=== PATIENT | male | born 1940 | race Caucasian/White ===

== ENCOUNTER 2018-02-06 11:51 | Inpatient (IN) | payer MEDICARE, BC, OTHER ==
[2018-02-06] VITALS (8 sets, daily range): BP systolic 105–198; BP diastolic 70–100; PULSE 58–66; RESP 16–20; TEMP 97.2–98.3; O2SAT 94–98
[~2018-02-06] VITALS: Ht 193 cm; Wt 97.0 kg
[~2018-02-06 11:51] MED LIST: ALLO100 PO; AMLO10 PO; ATOR20TA42 PO; DOCU1CAP39 PO; ECASA PO; FISH1000 PO; LISI10 PO; LOMO PO; NITR0.4S SL; PANT20 PO; SUCR1S PO; TAB-TAB PO; TOPR50TA PO; ZOFR4TAB3 SL; [UNRECOGNIZED DRUG - CODE] PO
[2018-02-06] MEDS ORDERED: SODIUM CHLORID 0.9% 500 ML INJ 500 ML IV ONE (12:30)
--- NOTE | 2018-02-06 12:37 | PD ---
HPI Chief Complaint: General Weakness Time Seen by Provider: 12:15 Travel History International Travel<30 days: No Contact w/Intl Traveler<30days: No Traveled to known affect area: No History of Present Illness HPI 77-year-old male with a history of CHF, HTN, presents emergency department for evaluation dizziness and multiple falls that started 2 weeks ago. Patient says he called his account development executive, Dr. Cheek, and he advised to come to the emergency department for evaluation. Patient says that he gets up in the morning he walks to the bathroom, turns around and feels dizzy often falling injury resulting in head trauma. Says he feels unsteady and like the room is spinning despite him holding onto objects in the room. Says that the dizziness lasts for 10 minutes before resolving spontaneously. He says this also occurs from sitting to a standing position. he denies loss of consciousness, blurred vision, headache. Since last night he had the same incident occur where he fell hitting his head and staying on the floor for approximately 20 minutes. Patient was able to move and walk normally after the incident. He denies fever , chills, chest pain, abdominal pain, nausea, vomiting or diarrhea. Says he normally has shortness of breath secondary to his congestive heart failure. His last echocardiogram and stress test was at the end of 2017. He does not know the results. In addition, patient takes hydrocodone daily for hip and back pain. This is prescribed by his primary care physician, Dr. Duff. [facility] Past Medical History Arthritis: Yes Asthma: No Autoimmune Disease: No Anxiety: No Depression: Yes (due to illness ) Heart Rhythm Problems: No Cancer: Yes (renal) Cardiovascular Problems: Yes High Cholesterol: Yes Chemotherapy: No Chest Pain: No Congestive Heart Failure: No COPD: No Cerebrovascular Accident: No Diabetes: No Diminished Hearing: Yes Endocrine: No GERD: No Hiatal Hernia: No Hypertension: Yes Immune Disorder: No Kidney Stones: No Musculoskeletal: Yes Neurologic: No Psychiatric: No Respiratory: No Migraines: Yes Radiation Therapy: No Renal Failure: Yes (right kidney removed) Seizures: No Sickle Cell Disease: No Sleep Apnea: Yes (years ago) Thyroid Disease: No Ulcer: No Influenza Vaccination: Yes Past Surgical History Abdominal Surgery: Yes (gallbladder ) AICD: No Arteriovenous Shunt: No Cardiac Surgery: Yes (stent ) Cholecystectomy: Yes Ear Surgery: No Endocrine Surgery: No Eye Surgery: Yes (bilateral cataracts) Genitourinary Surgery: Yes (prostate) Insulin Pump: No Joint Replacement: No Neurologic Surgery: No Oral Surgery: Yes (teeth removed) Pacemaker: No Prostatectomy: Yes Thoracic Surgery: No Other Surgery: Yes (R kidney removed) Social History Alcohol Use: No Tobacco Use: No Substance Use: No Allergies-Medications (Allergen,Severity, Reaction): Coded Allergies: colchicine (Verified Allergy, Mild, 02/06/18) labetalol (Verified Allergy, Mild, 02/06/18) Reported Meds & Prescriptions Reported Meds & Active Scripts Active Reported Tofranil (Imipramine HCl) 50 Mg Tab 50 Mg PO HS Vesicare (Solifenacin) 5 Mg Tab 5 Mg PO DAILY Hydrocodone-Acetaminophen 7.5 Mg-325 Mg Tab 1 Tab PO Q8HR PRN Lisinopril 10 Mg Tab 10 Mg PO BID Allopurinol 100 Mg Tab 100 Mg PO BID Review of Systems Except as stated in HPI: all other systems reviewed are Neg Physical Exam Narrative GENERAL: Well-developed, well-nourished in no apparent distress SKIN: Focused skin assessment warm/dry. HEAD: Atraumatic. Normocephalic. EYES: Pupils equal and round. No scleral icterus. No injection or drainage. PERRLA ENT: No nasal bleeding or discharge. Mucous membranes pink and moist. NECK: Trachea midline. No JVD. No lymphadenopathy CARDIOVASCULAR: Regular rate and rhythm. No murmur appreciated. RESPIRATORY: No accessory muscle use. Clear to auscultation. Breath sounds equal bilaterally. GASTROINTESTINAL: Abdomen soft, non-tender, nondistended. Hepatic and splenic margins not palpable. No CVA tenderness MUSCULOSKELETAL: No obvious deformities. No clubbing. No cyanosis. No edema. NEUROLOGICAL: Awake and alert. Cranial nerves II through XII intact. Motor and sensory grossly within normal limits. Five out of 5 muscle strength in all muscle groups. Normal speech. No pronator drift. PSYCHIATRIC: Appropriate mood and affect; insight and judgment normal. Data Data Last Documented VS Vital Signs Date Time Temp Pulse Resp B/P (MAP) Pulse Ox O2 Delivery O2 Flow Rate FiO2 02/06/18 12:46 61 16 166/89 (114) 88 20 61 16 120/72 (88) 02/06/18 12:10 97.8 97 Room Air Orders Orders Electrocardiogram (02/06/18 12:27) Complete Blood Count With Diff (02/06/18 12:27) Comprehensive Metabolic Panel (02/06/18 12:27) Act Partial Throm Time (Ptt) (02/06/18 12:27) Prothrombin Time / Inr (Pt) (02/06/18 12:27) Urinalysis - C+S If Indicated (02/06/18 12:27) Ct Brain W/O Iv Contrast(Rout) (02/06/18 12:27) Ecg Monitoring (02/06/18 12:27) Iv Access Insert/Monitor (02/06/18 12:27) Orthostatic Vital Signs (02/06/18 12:27) Sodium Chlorid 0.9% 500 Ml Inj (Ns 500 M (02/06/18 12:30) Chest, Single Ap (02/06/18 ) Admit Order (Ed Use Only) (02/06/18 16:33) Labs Laboratory Tests Test 02/06/18 12:40 02/06/18 13:45 White Blood Count 8.9 TH/MM3 Red Blood Count 4.32 MIL/MM3 Hemoglobin 13.8 GM/DL Hematocrit 41.2 % Mean Corpuscular Volume 95.3 FL Mean Corpuscular Hemoglobin 31.9 PG Mean Corpuscular Hemoglobin Concent 33.5 % Red Cell Distribution Width 13.5 % Platelet Count 158 TH/MM3 Mean Platelet Volume 7.4 FL Neutrophils (%) (Auto) 66.2 % Lymphocytes (%) (Auto) 24.8 % Monocytes (%) (Auto) 8.7 % Eosinophils (%) (Auto) 0.0 % Basophils (%) (Auto) 0.3 % Neutrophils # (Auto) 5.9 TH/MM3 Lymphocytes # (Auto) 2.2 TH/MM3 Monocytes # (Auto) 0.8 TH/MM3 Eosinophils # (Auto) 0.0 TH/MM3 Basophils # (Auto) 0.0 TH/MM3 CBC Comment DIFF FINAL Differential Comment Prothrombin Time 10.6 SEC Prothromb Time International Ratio 1.0 RATIO Activated Partial Thromboplast Time 23.6 SEC Blood Urea Nitrogen 32 MG/DL Creatinine 1.77 MG/DL Random Glucose 84 MG/DL Total Protein 7.3 GM/DL Albumin 3.7 GM/DL Calcium Level 8.4 MG/DL Alkaline Phosphatase 93 U/L Aspartate Amino Transf (AST/SGOT) 16 U/L Alanine Aminotransferase (ALT/SGPT) 22 U/L Total Bilirubin 1.1 MG/DL Sodium Level 139 MEQ/L Potassium Level 4.6 MEQ/L Chloride Level 106 MEQ/L Carbon Dioxide Level 25.8 MEQ/L Anion Gap 7 MEQ/L Estimat Glomerular Filtration Rate 37 ML/MIN Urine Color YELLOW Urine Turbidity CLEAR Urine pH 5.0 Urine Specific [place] 1.020 Urine Protein NEG mg/dL Urine Glucose (UA) NEG mg/dL Urine Ketones NEG mg/dL Urine Occult Blood NEG Urine Nitrite NEG Urine Bilirubin NEG Urine Urobilinogen 2.0 mg/dL Urine Leukocyte Esterase NEG Urine RBC 1 /hpf Urine WBC 1 /hpf Urine Squamous Epithelial Cells <1 /hpf Urine Hyaline Casts 4 /lpf Microscopic Urinalysis Comment CULT NOT INDICATED MDM Medical Decision Making Medical Screen Exam Complete: Yes Emergency Medical Condition: Yes Differential Diagnosis BPPV, dehydration, vertigo, ICH Narrative Course 77-year-old male presents emergency department for evaluation of multiple falls and positional dizziness that is been persistent for the last 2 weeks. Patient has no complaints other than these falls and dizziness that seems to last between 10 and 20 minutes before resolving spontaneously. He denies headache, blurred vision. Patient does not member all the medications he takes but does not believe he takes any blood thinners. Of note, pt has had a nephrectomy and has a single kidney. Vital signs stable. Gentle hydration of 500cc as pt has CHF. Labs are significant for BUN/Cr 32/1.77, increased from 06/2015 labs BUN/Cr 18/ 1.22. UA noncontributory. Orthostatic vital signs positive. Upon discussion of imaging and labs, pt was asked to walk. According to nurses, pt was unable to stand without difficultly. In addition, pt complains of shortness of breath with standing or walking but again, this is chronic. I spoke with Dr. Reyes who accepted this patient. Consider neuro consult. Diagnosis Primary Impression: Vertigo Additional Impressions: Orthostasis Generalized weakness Admitting Information Admitting Physician Requests: Observation Patient Instructions: General Instructions Condition: Stable Jeannette Escalona Feb 06, 2018 12:37
[2018-02-06 12:59] LABS: AUTOMATED NEUTROPHIL # 5.9 TH/MM3 (1.8-7.7); BASOPHIL % 0.3 % (0.0-2.0); HEMATOCRIT 41.2 % (39.0-51.0); HEMOGLOBIN 13.8 GM/DL (13.0-17.0); LYMPH % 24.8 % (9.0-44.0); LYMPHOCYTE # 2.2 TH/MM3 (1.0-4.8); MEAN CELL VOLUME 95.3 FL (80.0-100.0); MEAN CORPUSCULAR HEMOGLOBIN 31.9 PG (27.0-34.0); MEAN CORPUSCULAR HGB CONC 33.5 % (32.0-36.0); MEAN PLATELET VOLUME 7.4 FL (7.0-11.0); MONO % 8.7 % (0.0-8.0); MONOCYTE # 0.8 TH/MM3 (0-0.9); NEUT % 66.2 % (16.0-70.0); PLATELET COUNT 158 TH/MM3 (150-450); RED BLOOD COUNT 4.32 MIL/MM3 (4.50-5.90); RED CELL DISTRIBUTION WIDTH 13.5 % (11.6-17.2); WHITE BLOOD COUNT 8.9 TH/MM3 (4.0-11.0)
[2018-02-06 13:09] LABS: PROTHROMBIN TIME - PATIENT 10.6 SEC (9.8-11.6)
[2018-02-06 13:24] LABS: ALBUMIN 3.7 GM/DL (3.4-5.0); ALT (GPT) 22 U/L (12-78); AST (GOT) 16 U/L (15-37); BICARBONATE 25.8 MEQ/L (21.0-32.0); BLOOD UREA NITROGEN 32 MG/DL (7-18); CALCIUM 8.4 MG/DL (8.5-10.1); CHLORIDE 106 MEQ/L (98-107); CREATININE 1.77 MG/DL (0.60-1.30); GLOMERULAR FILTRATION RATE 37 ML/MIN (>89); GLUCOSE,RANDOM 84 MG/DL (74-106); SODIUM (NA) 139 MEQ/L (136-145)
[2018-02-06 13:26] LABS: ALKALINE PHOSPHATASE 93 U/L (45-117); TOTAL BILIRUBIN ADULT 1.1 MG/DL (0.2-1.0); TOTAL PROTEIN 7.3 GM/DL (6.4-8.2)
--- NOTE | 2018-02-06 13:46 | RADRPT ---
EXAM DATE: 02/06/2018 1:38 PM EDT AGE/SEX: 77 years / Male INDICATIONS: Generlize weakness with frequent falls for two weeks CLINICAL DATA: This is the patient's initial encounter. Patient reports that signs and symptoms have been present for 2 weeks and indicates a pain score of 4/10. MEDICAL/SURGICAL HISTORY: Cardiovascular disease. Hypertension. Renal cancer . Nephrectomy RADIATION DOSE: 38.53 CTDI (mGy) COMPARISON: [facility] – [place] BRAIN [place]/O CONTRAST, 06/20/2015. . TECHNIQUE: CT of the head without contrast. Using automated exposure control and adjustment of the mA and/or kV according to patient size, radiation dose was kept as low as reasonably achievable to ob tain optimal diagnostic quality images. DICOM format image data is available electronically for revi ew and comparison. FINDINGS: Cerebrum: The ventricles are normal for age. Stable bilateral cortical atrophy. No evidence of midl ine shift, mass lesion, hemorrhage or acute infarction. No extraaxial fluid collections are seen. Posterior Fossa: The cerebellum and brainstem are intact. The 4th ventricle is midline. The cerebe llopontine angle is unremarkable. Extracranial: The visualized portion of the orbits is intact. Skull: The calvaria is intact. No evidence of skull fracture. CONCLUSION: 1. Stable CT scan of the brain compared to 2014. 2. No acute intracranial hemorrhage. Electronically signed by: Omer Alicia MD 02/06/2018 1:45 PM EDT
[2018-02-06 14:03] LABS: BILIRUBIN, URINE NEG (NEG); BLOOD, URINE NEG (NEG); GLUCOSE,URINE NEG (NEG); HYALINE CAST, URINE 4 /lpf (RARE); KETONE, URINE NEG (NEG); NITRITE,URINE NEG (NEG); SQUAMOUS EPITHELIAL CELL URINE <1 /hpf (0-5); URINE COLOR YELLOW (YELLW/STRAW); URINE LEUKOCYTE ESTERASE NEG (NEG)
[2018-02-06] MEDS ORDERED: WALKER WHEELS/F1 MIS (14:09)
[2018-02-06] MEDS ORDERED: MECL-62 PO (14:09)
--- NOTE | 2018-02-06 15:52 | RADRPT ---
EXAM DATE: 02/06/2018 3:37 PM EDT AGE/SEX: 77 years / Male INDICATIONS: Short of breath, syncope. CLINICAL DATA: This is the patient's initial encounter. Patient reports that signs and symptoms have been present for 1 day and indicates a pain score of 0/10. MEDICAL/SURGICAL HISTORY: Cardiovascular disease. Hypertension. Renal cancer. None. COMPARISON: No prior exams available for comparison. FINDINGS: Portable AP view of the chest demonstrates a normal-sized cardiac silhouette. Lungs are underinflated with atelectasis at the lung bases. No effusion, consolidation, or pneumothorax is identified. Bones demonstrate no acute abnormality. EKG lines overlie the patient. CONCLUSION: Under inflation with atelectasis at the lung bases. Otherwise, no acute finding is appreciated. Electronically signed by: Leoncio Robertson MD 02/06/2018 3:51 PM EDT
--- NOTE | 2018-02-06 16:43 | PD ---
Data Data Last Documented VS Vital Signs Date Time Temp Pulse Resp B/P (MAP) Pulse Ox O2 Delivery O2 Flow Rate FiO2 02/06/18 12:46 61 16 166/89 (114) 88 20 61 16 120/72 (88) 02/06/18 12:10 97.8 97 Room Air Orders Orders Electrocardiogram (02/06/18 12:27) Complete Blood Count With Diff (02/06/18 12:27) Comprehensive Metabolic Panel (02/06/18 12:27) Act Partial Throm Time (Ptt) (02/06/18 12:27) Prothrombin Time / Inr (Pt) (02/06/18 12:27) Urinalysis - C+S If Indicated (02/06/18 12:27) Ct Brain W/O Iv Contrast(Rout) (02/06/18 12:27) Ecg Monitoring (02/06/18 12:27) Iv Access Insert/Monitor (02/06/18 12:27) Orthostatic Vital Signs (02/06/18 12:27) Sodium Chlorid 0.9% 500 Ml Inj (Ns 500 M (02/06/18 12:30) Chest, Single Ap (02/06/18 ) Admit Order (Ed Use Only) (02/06/18 16:33) Labs Laboratory Tests Test 02/06/18 12:40 02/06/18 13:45 White Blood Count 8.9 TH/MM3 Red Blood Count 4.32 MIL/MM3 Hemoglobin 13.8 GM/DL Hematocrit 41.2 % Mean Corpuscular Volume 95.3 FL Mean Corpuscular Hemoglobin 31.9 PG Mean Corpuscular Hemoglobin Concent 33.5 % Red Cell Distribution Width 13.5 % Platelet Count 158 TH/MM3 Mean Platelet Volume 7.4 FL Neutrophils (%) (Auto) 66.2 % Lymphocytes (%) (Auto) 24.8 % Monocytes (%) (Auto) 8.7 % Eosinophils (%) (Auto) 0.0 % Basophils (%) (Auto) 0.3 % Neutrophils # (Auto) 5.9 TH/MM3 Lymphocytes # (Auto) 2.2 TH/MM3 Monocytes # (Auto) 0.8 TH/MM3 Eosinophils # (Auto) 0.0 TH/MM3 Basophils # (Auto) 0.0 TH/MM3 CBC Comment DIFF FINAL Differential Comment Prothrombin Time 10.6 SEC Prothromb Time International Ratio 1.0 RATIO Activated Partial Thromboplast Time 23.6 SEC Blood Urea Nitrogen 32 MG/DL Creatinine 1.77 MG/DL Random Glucose 84 MG/DL Total Protein 7.3 GM/DL Albumin 3.7 GM/DL Calcium Level 8.4 MG/DL Alkaline Phosphatase 93 U/L Aspartate Amino Transf (AST/SGOT) 16 U/L Alanine Aminotransferase (ALT/SGPT) 22 U/L Total Bilirubin 1.1 MG/DL Sodium Level 139 MEQ/L Potassium Level 4.6 MEQ/L Chloride Level 106 MEQ/L Carbon Dioxide Level 25.8 MEQ/L Anion Gap 7 MEQ/L Estimat Glomerular Filtration Rate 37 ML/MIN Urine Color YELLOW Urine Turbidity CLEAR Urine pH 5.0 Urine Specific [place] 1.020 Urine Protein NEG mg/dL Urine Glucose (UA) NEG mg/dL Urine Ketones NEG mg/dL Urine Occult Blood NEG Urine Nitrite NEG Urine Bilirubin NEG Urine Urobilinogen 2.0 mg/dL Urine Leukocyte Esterase NEG Urine RBC 1 /hpf Urine WBC 1 /hpf Urine Squamous Epithelial Cells <1 /hpf Urine Hyaline Casts 4 /lpf Microscopic Urinalysis Comment CULT NOT INDICATED MDM Supervised Visit with ROMERO: Yes Narrative Course I, Dr. Romo, have reviewed the advance practice practitioner's documentation and am in agreement, met with the patient face to face, made the diagnosis, and the medical decision making was done by me. *My assessment and Findings: Patient has main complaint of dyspnea with exertion. Going on months but worsening. While objectively the workup done here in the ER looks fairly reassuring other than some renal insufficiency, he does have orthostatic hypotension and drop of saturation upon ambulation. Even standing he gets lightheaded and hypotensive. He was given IV fluid. 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 He will be observed in the hospital overnight Diagnosis Primary Impression: Vertigo Additional Impressions: Orthostasis Generalized weakness Admitting Information Admitting Physician Requests: Observation Patient Instructions: General Instructions Additional Instruction: Follow-up with primary care physician as discussed. Use meclizine as needed for dizziness. I recommend he take this medication initially at night to determine tolerance. This may make you drowsy. If your symptoms persist or worsen return to the emergency department. Consider follow-up with a neurologist for further evaluation. Kain Romo MD Feb 06, 2018 16:42
[2018-02-06] MEDS ORDERED: ACETAMINOPHEN 325 MG TAB PO PRN ×2 (16:45)
[2018-02-06] MEDS ORDERED: oxyCODONE/ACETAMINOPHEN 5 MG/325 MG TAB PO PRN (16:45)
[2018-02-06] MEDS ORDERED: SENNOSIDES 8.6 MG TAB PO PRN (16:45)
[2018-02-06] MEDS ORDERED: NALOXONE HCL 0.4 MG/ML AMP IV PUSH PRN (16:45)
[2018-02-06] MEDS ORDERED: MORPHINE SULFATE 4 MG/ML INJ IV PUSH PRN ×3 (16:45)
[2018-02-06] MEDS ORDERED: MAGNESIUM HYDROXIDE SUSP 30 ML CUP PO PRN (16:45)
[2018-02-06] MEDS ORDERED: BISACODYL 10 MG SUPP RECTAL PRN (16:45)
[2018-02-06] MEDS ORDERED: DEXTROSE 50% IN WATER 50 ML VIAL(D50) IV PUSH PRN (16:45)
[2018-02-06] MEDS ORDERED: SODIUM CHLORIDE 0.9% FLUSH 10 ML FLUSH IV FLUSH PRN ×2 (16:45)
[2018-02-06] MEDS ORDERED: GLUCAGON 1 MG/ML VIAL OTHER PRN (16:45)
[2018-02-06] MEDS ORDERED: oxyCODONE/ACETAMINOPHEN 10 MG/325 MG TAB PO PRN (16:45)
[2018-02-06] MEDS: INSULIN ASPART SUPPLEMENTAL SCALE SQ SCH ×2 (17:00→21:00)
[2018-02-06] MEDS: ENOXAPARIN SODIUM 40 MG/0.4 ML SYRINGE SQ SCH (17:20)
[2018-02-06] MEDS: ASPIRIN 81 MG CHEW TAB PO SCH (17:20)
[2018-02-06] MEDS: SODIUM CHLOR 0.9% 1000 ML INJ 1,000 ML IV SCH (17:20)
[2018-02-06] MEDS: MECLIZINE HCL 25 MG TAB PO SCH (17:20)
[2018-02-06] MEDS ORDERED: LISI10TA3 PO (17:41)
[2018-02-06] MEDS ORDERED: ALLO100T PO (17:41)
[2018-02-06] MEDS ORDERED: TOFR50TA PO (17:45)
[2018-02-06] MEDS ORDERED: HYDR-3580 PO (17:45)
[2018-02-06] MEDS ORDERED: VESI5TAB2 PO (17:45)
[2018-02-06 18:33] LABS: TROPONIN I LESS THAN 0.02 NG/ML (0.02-0.05)
[2018-02-06] MEDS ORDERED: cloNIDine HCL 0.1 MG TAB PO PRN (18:45)
--- NOTE | 2018-02-06 18:53 | HHI.HP ---
[facility] Service [facility] Garrett Castro MD Admission Diagnosis orthostatic hypotension, falls, generalized weakness Diagnoses: (1) Renal insufficiency Diagnosis: Principal (2) Renal cell carcinoma Diagnosis: Secondary (3) Orthostasis Diagnosis: Principal (4) Vertigo Diagnosis: Principal (5) Generalized weakness Diagnosis: Principal (6) Paroxysmal atrial fibrillation Diagnosis: Secondary (7) Hypertensive heart disease Diagnosis: Principal (8) OBS (organic brain syndrome) Diagnosis: Secondary (9) Dehydration Diagnosis: Principal Chief Complaint: Generalized weakness Travel History International Travel<30 Days: No Contact w/Intl Traveler <30 Da: No Traveled to Known Affected Are: No History of Present Illness Patient is a 77-year-old gentleman, Who presented to the hospital today for evaluation of dizziness and multiple falls that has been ongoing for the past 2 weeks. Patient states he called his psychological operations officer and was advised to come the emergency department for evaluation. Patient states that when he gets up in the morning walks the bathroom turned around and feels dizzy often falling with injuries resulting in head trauma. He states he has feels unsteady and like the room is spinning despite him holding onto multiple objects in the room states that his dizziness lasts for 10 minutes but then resolved spontaneously. Also occurs from sitting to standing position. Denies any loss of consciousness or blurred vision or headache. States last night he had the same incident occurred when he fell hitting his head and staying on the floor for approximately 20 minutes. Patient states he was able to move and walk normally after the incident. Denies any fever chills or chest pain or abdominal pain or nausea vomiting or diarrhea he states that he is normally has some shortness of breath secondary to his congestive heart failure stress test and echo was in 2017 patient also takes hydrocodone daily for hip and back pain probably every 8 hours as needed patient's past medical history consists of congestive heart failure hypertension and what sounds like some urinary incontinence with issues with bladder issues which may be causing the orthostatic hypotension causing him to fall since the medications he is on have those side effects. Review of Systems Constitutional: COMPLAINS OF: Fatigue, Dizziness, DENIES: Diaphoretic episodes , Fever, Weight gain, Weight loss, Chills, Change in appetite, Night Sweats Endocrine: DENIES: Heat/cold intolerance, Polydipsia, Polyuria, Polyphagia Eyes: DENIES: Blurred vision, Diplopia, Eye inflammation, Eye pain, Vision loss , Photosensitivity, Double Vision Ears, nose, mouth, throat: COMPLAINS OF: Vertigo, Ear Pain, DENIES: Tinnitus, Hearing loss, Nasal discharge, Oral lesions, Throat pain, Hoarseness, Running Nose, Epistaxis, Sinus Pain, Toothache, Odynophagia Respiratory: COMPLAINS OF: Shortness of breath, DENIES: Apneas, Cough, Snoring , Wheezing, Hemoptysis, Sputum production Cardiovascular: COMPLAINS OF: Syncope, Dyspnea on Exertion, Orthopnea, DENIES: Chest pain, Palpitations, PND, Lower Extremity Edema, Claudication Gastrointestinal: DENIES: Abdominal pain, Black stools, Bloody stools, Constipation, Diarrhea, Nausea, Vomiting, Difficulty Swallowing, Anorexia Genitourinary: COMPLAINS OF: Urinary frequency, Urinary incontinence, Nocturia , DENIES: Sexual dysfunction, Urgency, Hematuria, Dysuria, Penile Discharge, Testicular Pain, Testicular Swelling Musculoskeletal: DENIES: Joint pain, Muscle aches, Stiffness, Joint Swelling, Back pain, Neck pain Integumentary: DENIES: Abnormal pigmentation, Nail changes, Pruritus, Rash Hematologic/lymphatic: DENIES: Bruising, Lymphadenopathy Immunologic/allergic: DENIES: Eczema, Urticaria Neurologic: COMPLAINS OF: Abnormal gait, Poor Balance, DENIES: Headache, Localized weakness, Paresthesias, Seizures, Speech Problems, Tremor Psychiatric: DENIES: Anxiety, Confusion, Mood changes, Depression, Hallucinations, Agitation, Suicidal Ideation, Homicidal Ideation, Delusions Except as stated in HPI: all other systems reviewed are Neg Past Family Social History Past Medical History Congestive heart failure Osteoarthritis Depression History of renal cell carcinoma status post nephrectomy Hypertension Hypercholesterolemia Diminished hearing Chronic back and hip pain History of migraine headaches History of right nephrectomy Sleep apnea Gout History of head trauma GERD and heartburn Left shoulder fracture Chronic back pain Multiple falls Past Surgical History Cholecystectomy Right-sided nephrectomy Cardiac stent Bilateral cataracts History of prostate surgery Reported Medications Reported Meds & Active Scripts Active Reported Tofranil (Imipramine HCl) 50 Mg Tab 50 Mg PO HS Vesicare (Solifenacin) 5 Mg Tab 5 Mg PO DAILY Hydrocodone-Acetaminophen 7.5 Mg-325 Mg Tab 1 Tab PO Q8HR PRN Lisinopril 10 Mg Tab 10 Mg PO BID Allopurinol 100 Mg Tab 100 Mg PO BID Allergies: Coded Allergies: colchicine (Verified Allergy, Mild, 02/06/18) labetalol (Verified Allergy, Mild, 02/06/18) Active Ordered Medications Current Medications Sodium Chloride 500 ml @ 500 mls/hr BOLUS ONCE IV Last administered on at 13:04; Start 02/06/18 at 12:30; Stop 02/06/18 at 13:29; Status DC Sodium Chloride (NS Flush) 2 ml BID IV FLUSH ; Start 02/06/18 at 21:00 Sodium Chloride (NS Flush) 2 ml UNSCH PRN IV FLUSH FLUSH AFTER USING IV ACCESS ; Start 02/06/18 at 16:45 Aspirin (Aspirin Chew) 81 mg DAILY PO Last administered on 02/06/18at 17:20; Start 02/06/18 at 16:45 Atorvastatin Calcium (Lipitor) 10 mg HS PO ; Start 02/06/18 at 21:00 Insulin Aspart (NovoLOG SUPPLEMENTAL SCALE) 1 ACHS SQ ; Start 02/06/18 at 17:00 Dextrose (D50w (Vial) Inj) 50 ml UNSCH PRN IV PUSH HYPOGLYCEMIA-SEE COMMENTS; Start 02/06/18 at 16:45 Glucagon (Glucagon Inj) 1 mg UNSCH PRN OTHER HYPOGLYCEMIA-SEE COMMENTS; Start 02/06/18 at 16:45 Enoxaparin Sodium (Lovenox Inj) 40 mg Q24H SQ Last administered on 02/06/18at 17 :20; Start 02/06/18 at 17:00 Sodium Chloride 1,000 ml @ 100 mls/hr Q10H IV Last administered on 02/06/18at 17:20; Start 02/06/18 at 16:41 Sodium Chloride (NS Flush) 2 ml UNSCH PRN IV FLUSH FLUSH AFTER USING IV ACCESS ; Start 02/06/18 at 16:45; Stop 02/06/18 at 17:02; Status DC Sodium Chloride (NS Flush) 2 ml BID IV FLUSH ; Start 02/06/18 at 21:00; Stop at 21:00; Status DC Acetaminophen (Tylenol) 650 mg Q4H PRN PO TEMP > 100.4; Start 02/06/18 at 16:45 Ondansetron HCl (Zofran Odt) 4 mg Q6H PRN PO NAUSEA OR VOMITING; Start at 16:45 Metoclopramide HCl (Reglan Inj) 5 mg Q6H PRN IV PUSH NAUSEA OR VOMITING; Start 02/06/18 at 16:45 Acetaminophen (Tylenol) 650 mg Q6H PRN PO PAIN SCALE 1 TO 2; Start 02/06/18 at 16:45 Oxycodone/ Acetaminophen (Percocet 5-325 Mg) 1 tab Q6H PRN PO PAIN SCALE 3 TO 5; Start 02/06/18 at 16:45 Oxycodone/ Acetaminophen (Percocet 10-325 Mg) 1 tab Q6H PRN PO PAIN SCALE 6 TO 10; Start 02/06/18 at 16:45 Morphine Sulfate (Morphine Inj) 2 mg Q3H PRN IV PUSH Pain 3-5; if unable to take PO; Start 02/06/18 at 16:45 Morphine Sulfate (Morphine Inj) 4 mg Q3H PRN IV PUSH Pain 6-10;if unable to take PO; Start 02/06/18 at 16:45 Morphine Sulfate (Morphine Inj) 4 mg Q3H PRN IV PUSH BREAKTHROUGH PAIN; Start 02/06/18 at 16:45 Naloxone HCl (Narcan Inj) 0.4 mg UNSCH PRN IV PUSH SEE LABEL COMMENTS; Start at 16:45 Senna/Docusate Sodium (Guillermina-Colace) 1 tab BID PO ; Start 02/06/18 at 21:00 Magnesium Hydroxide (Milk Of Magnesia Liq) 30 ml Q12H PRN PO Mild constipation ; Start 02/06/18 at 16:45 Sennosides (Senokot) 17.2 mg Q12H PRN PO Moderate constipation; Start 02/06/18 at 16:45 Bisacodyl (Dulcolax Supp) 10 mg DAILY PRN RECTAL SEVERE CONSITIPATION; Start at 16:45 Lactulose (Lactulose Liq) 30 ml DAILY PRN PO SEVERE CONSITIPATION; Start at 16:45 Meclizine HCl (Antivert) 25 mg Q8H PO Last administered on 02/06/18at 17:20; Start 02/06/18 at 17:00 Family History Hypertension Social History Denies any tobacco Denies any alcohol Denies any illicits Physical Exam Vital Signs Vital Signs Date Time Temp Pulse Resp B/P (MAP) Pulse Ox O2 Delivery O2 Flow Rate FiO2 02/06/18 17:00 61 16 198/99 (132) 95 Room Air 02/06/18 12:46 61 16 166/89 (114) 88 20 61 16 120/72 (88) 02/06/18 12:10 97.8 61 16 120/72 (88) 97 Room Air 02/06/18 11:58 97.2 66 16 131/78 (95) 96 Physical Exam GENERAL: This is a well-nourished, well-developed patient, in no apparent distress. SKIN: No rashes, ecchymoses or lesions. Cool and dry. HEAD: Atraumatic. Normocephalic. No temporal or scalp tenderness. EYES: Pupils equal round and reactive. Extraocular motions intact. No scleral icterus. No injection or drainage. ENT: Nose without bleeding, purulent drainage or septal hematoma. Throat without erythema, tonsillar hypertrophy or exudate. Uvula midline. Airway patent. Bilateral ears have cerumen -right easier to visualize than the left ear NECK: Trachea midline. No JVD or lymphadenopathy. Supple, nontender, no meningeal signs. CARDIOVASCULAR: Regular rate and rhythm without murmurs, gallops, or rubs. RESPIRATORY: Clear to auscultation. Breath sounds equal bilaterally. No wheezes , rales, or rhonchi. GASTROINTESTINAL: Abdomen soft, non-tender, nondistended. No hepato-splenomegaly , or palpable masses. No guarding. MUSCULOSKELETAL: Extremities without clubbing, cyanosis, or edema. No joint tenderness, effusion, or edema noted. No calf tenderness. Negative Homans sign bilaterally. NEUROLOGICAL: Awake and alert. Cranial nerves II through XII intact. Motor and sensory grossly within normal limits. Five out of 5 muscle strength in all muscle groups. Normal speech. Appears to have orthostasis on standing from sitting Laboratory Laboratory Tests Test 02/06/18 12:40 02/06/18 13:45 02/06/18 17:18 White Blood Count 8.9 Red Blood Count 4.32 Hemoglobin 13.8 Hematocrit 41.2 Mean Corpuscular Volume 95.3 Mean Corpuscular Hemoglobin 31.9 Mean Corpuscular Hemoglobin Concent 33.5 Red Cell Distribution Width 13.5 Platelet Count 158 Mean Platelet Volume 7.4 Neutrophils (%) (Auto) 66.2 Lymphocytes (%) (Auto) 24.8 Monocytes (%) (Auto) 8.7 Eosinophils (%) (Auto) 0.0 Basophils (%) (Auto) 0.3 Neutrophils # (Auto) 5.9 Lymphocytes # (Auto) 2.2 Monocytes # (Auto) 0.8 Eosinophils # (Auto) 0.0 Basophils # (Auto) 0.0 CBC Comment DIFF FINAL Differential Comment Prothrombin Time 10.6 Prothromb Time International Ratio 1.0 Activated Partial Thromboplast Time 23.6 Blood Urea Nitrogen 32 Creatinine 1.77 Random Glucose 84 Total Protein 7.3 Albumin 3.7 Calcium Level 8.4 Alkaline Phosphatase 93 Aspartate Amino Transf (AST/SGOT) 16 Alanine Aminotransferase (ALT/SGPT) 22 Total Bilirubin 1.1 Sodium Level 139 Potassium Level 4.6 Chloride Level 106 Carbon Dioxide Level 25.8 Anion Gap 7 Estimat Glomerular Filtration Rate 37 Urine Color YELLOW Urine Turbidity CLEAR Urine pH 5.0 Urine Specific [place] 1.020 Urine Protein NEG Urine Glucose (UA) NEG Urine Ketones NEG Urine Occult Blood NEG Urine Nitrite NEG Urine Bilirubin NEG Urine Urobilinogen 2.0 Urine Leukocyte Esterase NEG Urine RBC 1 Urine WBC 1 Urine Squamous Epithelial Cells <1 Urine Hyaline Casts 4 Microscopic Urinalysis Comment CULT NOT INDICATED Result Diagram: 02/06/18 1240 02/06/18 1240 Imaging Last Impressions Head CT 02/06/18 1227 Signed Impressions: CONCLUSION: 1. Stable CT scan of the brain compared to 2015. 2. No acute intracranial hemorrhage. Chest X-Ray 02/06/18 0000 Signed Impressions: CONCLUSION: Under inflation with atelectasis at the lung bases. Otherwise, no acute finding is appreciated. Caprini VTE Risk Assessment Caprini VTE Risk Assessment: Mod/High Risk (score >= 2) Caprini Risk Assessment Model Point Value = 1 Point Value = 2 Point Value = 3 Point Value = 5 Age 41-60 Minor surgery BMI > 25 kg/m2 Swollen legs Varicose veins or History of unexplained or recurrent spontaneous Oral contraceptives or hormone replacement Sepsis (< 1 month) Serious lung disease, including pneumonia (< 1 month) Abnormal pulmonary function Acute myocardial infarction Congestive heart failure (< 1 month) History of inflammatory bowel disease Medical patient at bed rest Age 61-74 Arthroscopic surgery Major open surgery (> 45 min) Laparoscopic surgery (> 45 min) Malignancy Confined to bed (> 72 hours) Immobilizing plaster cast Central venous access Age >= 75 History of VTE Family history of VTE Factor V Leiden Prothrombin 32094H Lupus anticoagulant Anticardiolipin antibodies Elevated serum homocysteine Heparin-induced thrombocytopenia Other congenital or acquired thrombophilia Stroke (< 1 month) Elective arthroplasty Hip, pelvis, or leg fracture Acute spinal cord injury (< 1 month) Prophylaxis Regimen Total Risk Factor Score Risk Level Prophylaxis Regimen 0-1 Low Early ambulation 2 Moderate Order ONE of the following: *Sequential Compression Device (SCD) *Heparin 5000 units SQ BID 3-4 Higher Order ONE of the following medications: *Heparin 5000 units SQ TID *Enoxaparin/Lovenox 40 mg SQ daily (WT < 150 kg, CrCl > 30 mL/min) *Enoxaparin/Lovenox 30 mg SQ daily (WT < 150 kg, CrCl > 10-29 mL/min) *Enoxaparin/Lovenox 30 mg SQ BID (WT < 150 kg, CrCl > 30 mL/min) AND/OR *Sequential Compression Device (SCD) 5 or more Highest Order ONE of the following medications: *Heparin 5000 units SQ TID (Preferred with Epidurals) *Enoxaparin/Lovenox 40 mg SQ daily (WT < 150 kg, CrCl > 30 mL/min) *Enoxaparin/Lovenox 30 mg SQ daily (WT < 150 kg, CrCl > 10-29 mL/min) *Enoxaparin/Lovenox 30 mg SQ BID (WT < 150 kg, CrCl > 30 mL/min) AND *Sequential Compression Device (SCD) Assessment and Plan Assessment and Plan Vasovagal/orthostasis due to imipramine and Vesicare-suspect these are causing the orthostasis--VESICARE MORE SO We will consult neurology to make sure We will continue on a carotids- echo- MRI of the head and neck. Continue on an aspirin Hypertension we will make Catapres available Continue on his lisinopril HYPERLIPIDEMIA CONTINUE ON STATIN Renal insufficiency suspect secondary to the nephrectomy versus possible dehydration and possibly due to the lisinopril Vertigo continue on Antivert -ORTHOSTATICS Orthostasis continue on physical therapy and Occupational Therapy Consult neurology Consult case management Code Status Full code Discussed Condition With Discussed with RN and patient and emergency room physician Eliud Reyes DO Feb 06, 2018 18:53
[2018-02-06] MEDS ORDERED: ACETAMINOPHEN/HYDROcodone 325 MG/5 MG TAB PO PRN (19:00)
--- NOTE | 2018-02-06 19:16 | RADRPT ---
EXAM DATE: 02/06/2018 7:09 PM EDT AGE/SEX: 77 years / Male INDICATIONS: . Syncope, general weakness with fall for the last few months. CLINICAL DATA: This is the patient's initial encounter. Patient reports that signs and symptoms have been present for 2 months and indicates a pain score of 4/10. MEDICAL/SURGICAL HISTORY: Carcinoma, prostatic. Cardiovascular disease. Kidney cancer. Cholec ystectomy. Prostatectomy. Right kidney sx. COMPARISON: No prior exams available for comparison. TECHNIQUE: 3D [id number] MRA was performed. Source images, multiplanar STS MIP, and 3D volum e MIP reconstructions were reviewed. FINDINGS: Anterior Circulation: Intracranial Carotid Arteries: Patent. TROY: Small caliber right A1 segment. There is no evidence for aneurysm, vessel truncation or stenosis , and no evidence for vascular malformation. MCA: There is no evidence for aneurysm, vessel truncation or stenosis, and no evidence for vascular m alformation. Posterior Circulation: Distal Vertebral Arteries: Distal Vertebral arteries are symetrical and patent. Basilar Artery: There is no evidence for aneurysm, vessel truncation or stenosis, and no evidence for vascular malformation. SOFT TILE SETTER and Cerebellar Branches: There is no evidence for aneurysm, vessel truncation or stenosis, and no evidence for vascular malformation. CONCLUSION: 1. Hypoplastic right A1 segment. 2. Otherwise, unremarkable MRA examination of the brain. Electronically signed by: Kailash Munguia MD 02/06/2018 7:15 PM EDT
--- NOTE | 2018-02-06 19:18 | RADRPT ---
EXAM DATE: 02/06/2018 7:08 PM EDT AGE/SEX: 77 years / Male INDICATIONS: . Syncope, general weakness and falls for the last few months. CLINICAL DATA: This is the patient's initial encounter. Patient reports that signs and symptoms have been present for 2 months and indicates a pain score of 4/10. MEDICAL/SURGICAL HISTORY: Carcinoma, prostatic. Hypertension. Cardiovascular disease. Prostat ectomy. Right kidney sx. COMPARISON: No prior exams available for comparison. TECHNIQUE: Multiplanar, multisequence examination of the brain was performed without contrast. FINDINGS: Cerebrum: The ventricles are normal for age. No evidence of midline shift, mass lesion, hemorrhage or acute infarction. No extraaxial fluid collections are seen. The pituitary gland and suprasellar cistern are normal in configuration. White Matter: Mild to moderate periventricular and focal deep white matter T2 prolongation. Posterior Fossa: The cerebellum and brainstem are intact. The 4th ventricle is midline. The cerebel lopontine angle is unremarkable. The cerebellar tonsils are normal in position. Diffusion Imaging: No focal areas of restricted diffusion are seen. No evidence of acute infarction . Extracranial: The visualized portions of the orbits and paranasal sinuses are unremarkable. CONCLUSION: 1. [id number] periventricular small vessel ischemic white matter denomination. 2. Otherwise, unremarkable MRI examination of the brain. Electronically signed by: Kailash Munguia MD 02/06/2018 7:16 PM EDT
[2018-02-06] MEDS: SODIUM CHLORIDE 0.9% FLUSH 10 ML FLUSH IV FLUSH SCH (21:00)
[2018-02-06] MEDS ORDERED: SODIUM CHLORIDE 0.9% FLUSH 10 ML FLUSH IV FLUSH SCH (21:00)
[2018-02-06] MEDS ORDERED: IMIPRAMINE HCL 25 MG TAB PO SCH (21:00)
[2018-02-06] MEDS: DOCUSATE SODIUM 50 MG/SENNA 8.6 MG TAB PO SCH (21:38)
[2018-02-06] MEDS: LISINOPRIL 10 MG TAB PO SCH (21:39)
[2018-02-06] MEDS: ATORVASTATIN 10 MG TAB PO SCH (21:39)
[2018-02-06] MEDS: ALLOPURINOL 100 MG TAB PO SCH (22:47)
--- NOTE | 2018-02-06 23:13 | RADRPT ---
EXAM DATE: 02/06/2018 10:58 PM EDT AGE/SEX: 77 years / Male INDICATIONS: Syncope. CLINICAL DATA: This is the patient's initial encounter. Patient reports that signs and symptoms have been present for 1 week and indicates a pain score of 0/10. MEDICAL/SURGICAL HISTORY: Hypertension. Hypercholesterolemia. Vertigo. Migraine. Renal failure . Renal cancer. Cholecystectomy. Prostatectomy. Cardiac stent. Right kidney removed. Left shoulder surgery. COMPARISON: No prior exams available for comparison. VELOCITY PARAMETERS: ICA/CCA Ratio: Right 1.0 , Left 0.8 ICA: Right 56 cm/sec, Left 46 cm/sec CCA: Right 55 cm/sec, Left 60 cm/sec ECA: Right 38 cm/sec, Left 78 cm/sec Vertebral: Right 31 cm/sec antegrade, Left 24 cm/sec antegrade FINDINGS: Right Carotid: No significant stenosis is visualized. The waveforms are within normal limits. Left Carotid: No significant stenosis is visualized. The waveforms are within normal limits. Other: None. CONCLUSION: 1. Right Internal Carotid Artery: Mild atherosclerotic disease 2. Left Internal Carotid Artery: Mild atherosclerotic disease Electronically signed by: Anthony Mora MD 02/06/2018 11:12 PM EDT
[2018-02-07] VITALS (13 sets, daily range): BP systolic 74–191; BP diastolic 52–96; PULSE 58–67; RESP 16–18; TEMP 97.6–98.7; O2SAT 94–96
[2018-02-07] MEDS: MECLIZINE HCL 25 MG TAB PO SCH ×3 (00:12→18:57)
[2018-02-07 00:20] LABS: TROPONIN I LESS THAN 0.02 NG/ML (0.02-0.05)
[2018-02-07] MEDS: SODIUM CHLOR 0.9% 1000 ML INJ 1,000 ML IV SCH ×2 (02:08→10:41)
[2018-02-07 05:09] LABS: AUTOMATED NEUTROPHIL # 5.1 TH/MM3 (1.8-7.7); BASOPHIL % 0.2 % (0.0-2.0); HEMATOCRIT 38.8 % (39.0-51.0); HEMOGLOBIN 13.3 GM/DL (13.0-17.0); LYMPH % 26.6 % (9.0-44.0); LYMPHOCYTE # 2.1 TH/MM3 (1.0-4.8); MEAN CELL VOLUME 93.9 FL (80.0-100.0); MEAN CORPUSCULAR HEMOGLOBIN 32.1 PG (27.0-34.0); MEAN CORPUSCULAR HGB CONC 34.1 % (32.0-36.0); MEAN PLATELET VOLUME 7.6 FL (7.0-11.0); MONOCYTE # 0.7 TH/MM3 (0-0.9); NEUT % 64.2 % (16.0-70.0); PLATELET COUNT 145 TH/MM3 (150-450); RED BLOOD COUNT 4.13 MIL/MM3 (4.50-5.90); RED CELL DISTRIBUTION WIDTH 13.6 % (11.6-17.2)
[2018-02-07 05:10] LABS: INTERNATIONAL NORMALIZED RATIO 1.1 RATIO; PROTHROMBIN TIME - PATIENT 10.7 SEC (9.8-11.6)
[2018-02-07 05:26] LABS: ALBUMIN 3.6 GM/DL (3.4-5.0); AST (GOT) 18 U/L (15-37); BICARBONATE 23.6 MEQ/L (21.0-32.0); BLOOD UREA NITROGEN 29 MG/DL (7-18); CALCIUM 8.5 MG/DL (8.5-10.1); CHLORIDE 106 MEQ/L (98-107); CREATININE 1.35 MG/DL (0.60-1.30); GLOMERULAR FILTRATION RATE 51 ML/MIN (>89); GLUCOSE,RANDOM 97 MG/DL (74-106); MAGNESIUM 2.2 MG/DL (1.5-2.5); SODIUM (NA) 139 MEQ/L (136-145)
[2018-02-07 05:28] LABS: ALT (GPT) 21 U/L (12-78); CHOLESTEROL 147 MG/DL (120-200); PHOSPHORUS 3.1 MG/DL (2.5-4.9); TRIGLYCERIDES 89 MG/DL (42-150); TROPONIN I LESS THAN 0.02 NG/ML (0.02-0.05)
[2018-02-07 05:36] LABS: ALKALINE PHOSPHATASE 98 U/L (45-117); CHOLESTEROL/ HDL RATIO 2.66 RATIO; FREE T4 1.08 NG/DL (0.76-1.46); HDL CHOLESTEROL 55.2 MG/DL (40.0-60.0); LDL CHOLESTEROL 74 MG/DL (0-99); TOTAL BILIRUBIN ADULT 1.4 MG/DL (0.2-1.0); TOTAL PROTEIN 6.9 GM/DL (6.4-8.2)
[2018-02-07] MEDS: ONDANSETRON ODT 4 MG TAB PO PRN (06:17)
[2018-02-07] MEDS: INSULIN ASPART SUPPLEMENTAL SCALE SQ SCH ×4 (08:00→21:00)
[2018-02-07] MEDS: LISINOPRIL 10 MG TAB PO SCH ×2 (09:00→21:00)
[2018-02-07] MEDS: SODIUM CHLORIDE 0.9% FLUSH 10 ML FLUSH IV FLUSH SCH ×2 (09:00→21:08)
[2018-02-07] MEDS: ALLOPURINOL 100 MG TAB PO SCH ×2 (10:42→21:08)
[2018-02-07] MEDS: ASPIRIN 81 MG CHEW TAB PO SCH (10:43)
[2018-02-07] MEDS: DOCUSATE SODIUM 50 MG/SENNA 8.6 MG TAB PO SCH ×2 (10:43→21:08)
--- NOTE | 2018-02-07 12:22 | PD.CONS ---
History of Present Illness Service Neurology Consult Requested By Medical Team Reason for Consult Dizziness and falls Primary Care Physician Garrett Castro MD History of Present Illness 77 y/o male presented to ER with complaints of dizziness and frequent falls. Reports this has been occuring since around July last year. Denies room spinning. Occasional unsteadiness on his feet. Notes lightheadedness with position changes. Denies hx of stroke. Had Valdez's Palsy many years ago. Also reports his at the end of the year last year and wonders if it is related to stress. He notices the episodes most after he uses the bathroom and gets up to turn around from the toilet. Had fallen and hit his head. No loss of conciousness. No medications started at the end of the year. He has been working with his counter roller for this as well. No headache or vision change. Does note he has sensitivity to bright lights (Fallon Domínguez) Review of Systems Constitutional: Negative except HPI Eye: Negative Except HPI ENMT: Negative except HPI Respiratory: Negative except HPI Cardiovascular: Negative except HPI Gastrointestinal: Negative except HPI Marcell/Lymph: Negative except HPI Musculoskeletal: Negative except HPI Neurologic: Negative except HPI Psychiatric: Negative except HPI All other ROS: ROS reviewed as documented in chart (Fallon Domínguez) Past Family Social History Allergies: Coded Allergies: colchicine (Verified Allergy, Mild, 02/06/18) labetalol (Verified Allergy, Mild, 02/06/18) Past Medical History Congestive heart failure Osteoarthritis Depression History of renal cell carcinoma status post nephrectomy Hypertension Hypercholesterolemia Diminished hearing Chronic back and hip pain History of migraine headaches History of right nephrectomy Sleep apnea Gout History of head trauma GERD and heartburn Left shoulder fracture Chronic back pain Multiple falls Past Surgical History Cholecystectomy Right-sided nephrectomy Cardiac stent Bilateral cataracts History of prostate surgery Active Ordered Medications Current Medications Medications (Trade) Dose Ordered Sig/Brad Route Start Time Stop Time Status Last Admin (NS Flush) 2 ml BID IV FLUSH 02/06/18 21:00 (NS Flush) 2 ml UNSCH PRN IV FLUSH 02/06/18 16:45 (Aspirin Chew) 81 mg DAILY PO 02/06/18 16:45 02/07/18 10:43 (Lipitor) 10 mg HS PO 02/06/18 21:00 02/06/18 21:39 (NovoLOG SUPPLEMENTAL SCALE) 1 ACHS SQ 02/06/18 17:00 (D50w (Vial) Inj) 50 ml UNSCH PRN IV PUSH 02/06/18 16:45 (Glucagon Inj) 1 mg UNSCH PRN OTHER 02/06/18 16:45 (Lovenox Inj) 40 mg Q24H SQ 02/06/18 17:00 02/06/18 17:20 Sodium Chloride 1,000 ml @ 100 mls/hr Q10H IV 02/06/18 16:41 02/07/18 10:41 (Tylenol) 650 mg Q4H PRN PO 02/06/18 16:45 (Zofran Odt) 4 mg Q6H PRN PO 02/06/18 16:45 02/07/18 06:17 (Reglan Inj) 5 mg Q6H PRN IV PUSH 02/06/18 16:45 (Tylenol) 650 mg Q6H PRN PO 02/06/18 16:45 (Morphine Inj) 2 mg Q3H PRN IV PUSH 02/06/18 16:45 (Morphine Inj) 4 mg Q3H PRN IV PUSH 02/06/18 16:45 (Morphine Inj) 4 mg Q3H PRN IV PUSH 02/06/18 16:45 (Narcan Inj) 0.4 mg UNSCH PRN IV PUSH 02/06/18 16:45 (Guillermina-Colace) 1 tab BID PO 02/06/18 21:00 02/07/18 10:43 (Milk Of Magnesia Liq) 30 ml Q12H PRN PO 02/06/18 16:45 (Senokot) 17.2 mg Q12H PRN PO 02/06/18 16:45 (Dulcolax Supp) 10 mg DAILY PRN RECTAL 02/06/18 16:45 (Lactulose Liq) 30 ml DAILY PRN PO 02/06/18 16:45 (Antivert) 25 mg Q8H PO 02/06/18 17:00 02/07/18 10:42 (Catapres) 0.1 mg Q4H PRN PO 02/06/18 18:45 (Apresoline) 25 mg Q8HR PRN PO 02/06/18 18:45 (Zyloprim) 100 mg BID PO 02/06/18 21:00 02/07/18 10:42 ([place] 7.5-325 Mg) 1 tab Q8HR PRN PO 02/06/18 18:45 (Tofranil) 50 mg HS PO 02/06/18 21:00 02/06/18 22:47 (Prinivil) 10 mg BID PO 02/06/18 21:00 02/06/18 21:39 ([place] 5-325 Mg) 1 tab Q6H PRN PO 02/06/18 19:00 Family History noncontributory Social History lives alone, no ETOH, Tobacco or illicit drugs (Fallon Domínguez) Exam I&O / VS 02/07/18 02/07/18 02/08/18 15:00 23:00 07:00 Intake Total 1030 ml Output Total 425 ml Balance 605 ml IV Total 1030 ml Output Urine Total 425 ml Vital Signs Date Time Temp Pulse Resp B/P (MAP) Pulse Ox O2 Delivery O2 Flow Rate FiO2 02/07/18 10:47 118/80 (93) 02/07/18 08:55 191/94 (126) 141/90 (107) 80/64 (69) 02/07/18 07:43 97.8 63 18 190/94 (126) 96 02/07/18 03:49 61 02/07/18 03:38 97.6 66 16 167/82 (110) 94 02/07/18 00:04 62 02/06/18 23:48 98.3 58 17 144/75 (98) 94 105/70 (82) 02/06/18 20:42 97.7 63 17 197/98 (131) 97 02/06/18 20:10 98 02/06/18 19:25 02/06/18 19:08 65 16 180/100 (126) 95 02/06/18 17:00 61 16 198/99 (132) 95 Room Air 02/06/18 12:46 61 16 166/89 (114) 88 20 61 16 120/72 (88) General: Alert and Oriented, No acute distress Eye: PERRL, EOMI Exam Comments alert and orient x 3, 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), no nystagmus, moving all extremities against gravity, f-n-f intact, tone normal, no bradykinesia, gait withheld, (Fallon Domínguez) Review/Management Diagnosis/Plan: (1) Dizziness ICD Codes: R42 - Dizziness and giddiness Status: Acute Plan: MRI unremarkable suspect dizziness related to orthostasis no evidence of vertigo MRA head and CUS neck ordered (2) Orthostasis ICD Codes: I95.1 - Orthostatic hypotension Status: Acute Plan: has significant drop in BP with checking orthostatics with hypertension while lying and then <100 systolic when standing recommend cardiology eval (Fallon Domínguez) Diagnosis pt seen and d/w PA agree on workup reviewed all tests. d/w pt daughter who now lives with pt since his . orthostatic hypotension suspected from meds polypharmacy mri/mra cow ok cus neg for signif.stenosis echo results pending Diagnosis/Plan: (Mary Urbina MD) Fallon Domínguez Feb 07, 2018 12:22 Mary Urbina MD Feb 07, 2018 13:16
--- NOTE | 2018-02-07 14:01 | EKG ---
Date Performed: 02/06/2018 Time Performed: 13:02:05 PTAGE: 77 years EKG: SINUS BRADYCARDIA BORDERLINE ECG PREVIOUS TRACING : 06/23/2015 16.15 DOCTOR: Anthony Willams Interpretating Date/Time 02/07/2018 14:00:20
--- NOTE | 2018-02-07 15:38 | ECHRPT ---
Indication: CVA/TIA CONCLUSIONS Normal left ventricular size. Mild concentric left ventricular hypertrophy. The left ventricular systolic function is normal with an estimated ejection fraction in the range of 55-60%. Mild mitral valve regurgitation. Mild mitral annular calcification. Aortic valve sclerosis is present. Trace aortic valve regurgitation. There is trace tricuspid valve regurgitation. BP: 191 / 94 HR: 63 Rhythm: Sinus MEASUREMENTS (Male / Female) Normal Values Technical Quality:Fair 2D ECHO LV Diastolic Diameter PLAX 4.5 cm 4.2 - 5.9 / 3.9 - 5.3 cm LV Systolic Diameter PLAX 3.3 cm IVS Diastolic Thickness 1.3 cm 0.6 - 1.0 / 0.6 - 0.9 cm LVPW Diastolic Thickness 1.3 cm 0.6 - 1.0 / 0.6 - 0.9 cm LV Relative Wall Thickness 0.6 RV Internal Dim ED PLAX 3.5 cm LVOT Diameter 2.1 cm Aortic Root Diameter 3.4 cm LA Systolic Diameter LX 3.3 cm 3.0 - 4.0 / 2.7 - 3.8 cm M-MODE AV Cusp Separation MM 2.2 cm DOPPLER AV Peak Velocity 108.0 cm/s AV Peak Gradient 4.7 mmHg AV Mean Gradient 3.0 mmHg AV Velocity Time Integral 24.7 cm LVOT Peak Velocity 70.7 cm/s LVOT Peak Gradient 2.0 mmHg LVOT Velocity Time Integral 16.9 cm LVOT Cardiac Index 1602.2 cm/minm AV Area Cont Eq vti 2.4 cm AV Area Cont Eq pk 2.3 cm Mitral E Point Velocity 49.9 cm/s Mitral A Point Velocity 68.1 cm/s Mitral E to A Ratio 0.7 LV E' Lateral Velocity 7.6 cm/s Mitral E to LV E' Lateral Ratio 6.6 LV E' Septal Velocity 5.8 cm/s Mitral E to LV E' Septal Ratio 8.7 PV Peak Velocity 51.9 cm/s PV Peak Gradient 1.1 mmHg FINDINGS LEFT VENTRICLE Normal left ventricular size. Mild concentric left ventricular hypertrophy. The left ventricular systolic function is normal with an estimated ejection fraction in the range of 55-60%. RIGHT VENTRICLE Normal right ventricular size and systolic function. LEFT ATRIUM The left atrial size is normal. RIGHT ATRIUM The right atrium is not well visualized. ATRIAL SEPTUM The interatrial septum not well visualized. AORTA The aortic root and proximal ascending aorta are normal in size on limited imaging. MITRAL VALVE Mild mitral valve regurgitation. Mild mitral annular calcification. AORTIC VALVE Aortic valve sclerosis is present. Trace aortic valve regurgitation. TRICUSPID VALVE There is trace tricuspid valve regurgitation. PULMONARY VALVE No pulmonary valve regurgitation or stenosis. VESSELS The inferior vena cava was not well visualized. PERICARDIUM No pericardial effusion. Manohar White MD, FACC (Electronically Signed) Final Date:07 February 2018 15:37
--- NOTE | 2018-02-07 16:10 | HHI.PR ---
Subjective Remarks Follow up on patient with orthostatic hypotension. Patient seen and examined. Patient has extremely positive orthostatics. BP 182/93 supine and drops to 74/ [address] standing[address] Patient follows with Dr. Armas as an outpatient. Patient reports dizziness this morning upon standing. He denies any other symptoms. He denies any headache, slurred speech, weakness, chest pain, palpitations, shortness of breath or abdominal pain. He denies any urinary or bowel difficulties. Objective Vitals Vital Signs Date Time Temp Pulse Resp B/P (MAP) Pulse Ox O2 Delivery O2 Flow Rate FiO2 02/07/18 12:07 98.3 63 18 182/93 (122) 96 136/90 (105) 74/53 (60) 02/07/18 10:47 118/80 (93) 02/07/18 08:55 191/94 (126) 141/90 (107) 80/64 (69) 02/07/18 07:43 97.8 63 18 190/94 (126) 96 02/07/18 03:49 61 02/07/18 03:38 97.6 66 16 167/82 (110) 94 02/07/18 00:04 62 02/06/18 23:48 98.3 58 17 144/75 (98) 94 105/70 (82) 02/06/18 20:42 97.7 63 17 197/98 (131) 97 02/06/18 20:10 98 02/06/18 19:25 02/06/18 19:08 65 16 180/100 (126) 95 02/06/18 17:00 61 16 198/99 (132) 95 Room Air I/O 02/06/18 02/06/18 02/06/18 02/07/18 02/07/18 02/07/18 07:00 15:00 23:00 07:00 15:00 23:00 Intake Total 500 ml 480 ml 1030 ml Output Total 1000 ml 425 ml Balance 500 ml -520 ml 605 ml Intake Oral 480 ml IV Total 500 ml 1030 ml Output Urine Total 1000 ml 425 ml Result Diagram: 02/07/1844002/07/18 0441 Imaging Last Impressions Head CT 02/06/18 1227 Signed Impressions: CONCLUSION: 1. Stable CT scan of the brain compared to 2014. 2. No acute intracranial hemorrhage. Head Magnetic Resonance Angiography 02/06/18 Signed Impressions: CONCLUSION: 1. Hypoplastic right A1 segment. 2. Otherwise, unremarkable MRA examination of the brain. Chest X-Ray 02/06/18 Signed Impressions: CONCLUSION: Under inflation with atelectasis at the lung bases. Otherwise, no acute finding is appreciated. Carotid Artery Ultrasound 02/06/18 Signed Impressions: CONCLUSION: 1. Right Internal Carotid Artery: Mild atherosclerotic disease 2. Left Internal Carotid Artery: Mild atherosclerotic disease Brain MRI 02/06/18 Signed Impressions: CONCLUSION: 1. [id number] periventricular small vessel ischemic white matter denomin ation. 2. Otherwise, unremarkable MRI examination of the brain. Objective Remarks GENERAL: This is a well-nourished, well-developed elderly male patient, in no apparent distress. Awake and alert. Sitting up in bed. SKIN: Warm and dry. Superficial abrasions noted on bilateral knees. HEAD: Atraumatic. Normocephalic. EYES: Pupils equal round and reactive. Extraocular motions intact. No scleral icterus. No injection or drainage. ENT: Nose without bleeding or purulent drainage. Airway patent. MMM. NECK: Trachea midline. CARDIOVASCULAR: Regular rate and rhythm without murmurs, gallops, or rubs. RESPIRATORY: Nonlabored. Clear to auscultation. Breath sounds equal bilaterally. No wheezes, rales, or rhonchi. GASTROINTESTINAL: Abdomen soft, non-tender, nondistended. No guarding. MUSCULOSKELETAL: Extremities without clubbing, cyanosis, or edema. No calf tenderness. NEUROLOGICAL: Awake and alert. Cranial nerves II through XII grossly intact. Motor and sensory grossly within normal limits. Nonfocal. Normal speech. PSYCHIATRIC: Calm and cooperative. Procedures None A/P Problem List: (1) Renal insufficiency ICD Code: N28.9 - Disorder of kidney and ureter, unspecified (2) Renal cell carcinoma ICD Code: C64.9 - Malignant neoplasm of unspecified kidney, except renal pelvis (3) Orthostasis ICD Code: I95.1 - Orthostatic hypotension Status: Acute (4) Vertigo ICD Code: R42 - Dizziness and giddiness Status: Acute (5) Generalized weakness ICD Code: R53.1 - Weakness Status: Acute (6) Paroxysmal atrial fibrillation ICD Code: I48.0 - Paroxysmal atrial fibrillation Status: Acute (7) Hypertensive heart disease ICD Code: I11.9 - Hypertensive heart disease without heart failure Status: Acute (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 Syncopal/near syncopal episodes Dizziness Recurrent falls Suspect secondary to orthostatic hypotension CT the head stable MRI the brain unremarkable except for mild to moderate small vessel ischemic changes Carotid ultrasound shows mild atherosclerotic disease MRA head shows hypoplastic right A1 segment otherwise unremarkable Trops negative x 3 -Neurology following, appreciate assistance -neuro checks -continue on cardiac telemetry -Fall precautions -Echo done, awaiting results Orthostatic hypotension Patient's blood pressure drops from 180/93 supine to 74/53 with standing -Consult patient's stenciler Dr. Ny to assist with BP management, appreciate assistance -For now, will only treat standing blood pressures. Discussed with nursing staff. -Continue to hold Vesicare as likely contributing to orthostasis. Hold imipramine as well. -Discussed with patient slow transitions. Apply SAI hose prior to getting up out of bed in the morning. KARIME on CKD, suspect secondary to dehydration/poor oral intake Creatinine trending down -Encourage po fluid intake -Avoid nephrotoxic agents -Continue to monitor kidney function, repeat BMP in a.m. Hypertension -Patient resumed on home dose of lisinopril. Recommend treating standing blood pressures only given significant orthostasis. -Continue to monitor BP Dyslipidemia -Continue patient on statin therapy DVT prophylaxis -SAI/SCD Discharge Planning Not ready for discharge. Discharge pending neurology and cardiology clearance as well as echo results. Karla Nash Feb 07, 2018 16:10
[2018-02-07 17:32] LABS: HEMOGLOBIN A1C 5.6 % (4.3-6.0)
[2018-02-07 17:34] LABS: HEMOGLOBIN A1C 5.5 % (4.3-6.0)
[2018-02-07] MEDS: ENOXAPARIN SODIUM 40 MG/0.4 ML SYRINGE SQ SCH (18:58)
[2018-02-07] MEDS: ATORVASTATIN 10 MG TAB PO SCH (21:08)
[2018-02-08] VITALS (11 sets, daily range): BP systolic 79–221; BP diastolic 52–117; PULSE 61–72; RESP 16–18; TEMP 97.5–97.9; O2SAT 94–96
[2018-02-08] MEDS: MECLIZINE HCL 25 MG TAB PO SCH ×3 (00:25→17:08)
[2018-02-08 05:55] LABS: BACTERIA, URINE RARE /hpf; BILIRUBIN, URINE NEG (NEG); BLOOD, URINE NEG (NEG); GLUCOSE,URINE NEG (NEG); KETONE, URINE NEG (NEG); MUCUS URINE FEW /lpf (OCC); NITRITE,URINE NEG (NEG); URINE COLOR YELLOW (YELLW/STRAW); URINE LEUKOCYTE ESTERASE NEG (NEG)
[2018-02-08 06:02] LABS: PROTHROMBIN TIME - PATIENT 10.5 SEC (9.8-11.6)
[2018-02-08] MEDS: ONDANSETRON ODT 4 MG TAB PO PRN (06:06)
[2018-02-08 06:17] LABS: CALCIUM 8.5 MG/DL (8.5-10.1); CREATININE 1.47 MG/DL (0.60-1.30)
[2018-02-08] MEDS: INSULIN ASPART SUPPLEMENTAL SCALE SQ SCH ×4 (08:00→21:00)
[2018-02-08] MEDS: ASPIRIN 81 MG CHEW TAB PO SCH (08:29)
[2018-02-08] MEDS: DOCUSATE SODIUM 50 MG/SENNA 8.6 MG TAB PO SCH ×2 (08:29→21:50)
[2018-02-08] MEDS: ALLOPURINOL 100 MG TAB PO SCH ×2 (08:30→21:50)
[2018-02-08] MEDS: LACTULOSE SYRUP 20 GM/30 ML CUP PO PRN (08:31)
[2018-02-08] MEDS: LISINOPRIL 10 MG TAB PO SCH ×2 (09:00→21:49)
[2018-02-08] MEDS: SODIUM CHLORIDE 0.9% FLUSH 10 ML FLUSH IV FLUSH SCH ×2 (09:48→21:52)
--- NOTE | 2018-02-08 15:54 | HHI.PR ---
Subjective Remarks Follow up on patient with orthostatic hypotension. Patient seen and examined. Patient continues to have significant dizziness upon standing. Discussed with PT, patient unable to participate with PT yesterday due to him becoming unresponsive upon standing. Patient denies any other medical complaints. Denies any chest pain or shortness of breath. Denies any nausea vomiting or abdominal pain. Echocardiogram resulted showing EF 55-60% Objective Vitals Vital Signs Date Time Temp Pulse Resp B/P (MAP) Pulse Ox O2 Delivery O2 Flow Rate FiO2 02/08/18 13:04 97.6 63 18 195/106 (135) 94 146/91 (109) 79/52 (61) 02/08/18 12:45 61 02/08/18 09:46 182/98 (126) 02/08/18 08:35 97.5 18 100/68 (79) 201/103 (135) 02/08/18 08:30 65 02/08/18 03:49 97.8 65 16 190/98 (128) 95 02/08/18 00:06 72 02/08/18 00:02 97.5 65 16 197/98 (131) 95 180/88 (118) 91/52 (65) 02/07/18 20:05 62 02/07/18 19:47 95 21 02/07/18 19:35 97.7 62 17 174/92 (119) 95 145/83 (103) 80/52 (61) 02/07/18 16:21 98.7 58 18 186/96 (126) 94 170/86 (114) 98/63 (75) I/O 02/07/18 02/07/18 02/07/18 02/08/18 02/08/18 02/08/18 07:00 15:00 23:00 07:00 15:00 23:00 Intake Total 480 ml 1030 ml 1000 ml 480 ml Output Total 1000 ml 425 ml 500 ml Balance -520 ml 605 ml 1000 ml -20 ml Intake Oral 480 ml 480 ml IV Total 1030 ml 1000 ml Output Urine Total 1000 ml 425 ml 500 ml # Bowel Movements 1 Result Diagram: 02/07/18 0441 02/08/18 0500 Imaging Last Impressions Head CT 02/06/18 1227 Signed Impressions: CONCLUSION: 1. Stable CT scan of the brain compared to 2014. 2. No acute intracranial hemorrhage. Head Magnetic Resonance Angiography 02/06/18 Signed Impressions: CONCLUSION: 1. Hypoplastic right A1 segment. 2. Otherwise, unremarkable MRA examination of the brain. Chest X-Ray 02/06/18 Signed Impressions: CONCLUSION: Under inflation with atelectasis at the lung bases. Otherwise, no acute finding is appreciated. Carotid Artery Ultrasound 02/06/18 Signed Impressions: CONCLUSION: 1. Right Internal Carotid Artery: Mild atherosclerotic disease 2. Left Internal Carotid Artery: Mild atherosclerotic disease Brain MRI 02/06/18 Signed Impressions: CONCLUSION: 1. [id number] periventricular small vessel ischemic white matter denomin ation. 2. Otherwise, unremarkable MRI examination of the brain. Objective Remarks GENERAL: This is a well-nourished, well-developed elderly male patient, in no apparent distress. Awake and alert. Sitting up in chair in hallway outside bathroom as patient became too dizzy to return to his room after using the facilities. SKIN: Warm and dry. Superficial abrasions noted on bilateral knees. HEAD: Atraumatic. Normocephalic. EYES: Pupils equal round and reactive. Extraocular motions intact. No scleral icterus. No injection or drainage. ENT: Nose without bleeding or purulent drainage. Airway patent. MMM. NECK: Trachea midline. CARDIOVASCULAR: Regular rate and rhythm without murmurs, gallops, or rubs. RESPIRATORY: Nonlabored. Clear to auscultation. Breath sounds equal bilaterally. No wheezes, rales, or rhonchi. GASTROINTESTINAL: Abdomen soft, non-tender, nondistended. No guarding. MUSCULOSKELETAL: Extremities without clubbing, cyanosis, or edema. No calf tenderness. NEUROLOGICAL: Awake and alert. Cranial nerves II through XII grossly intact. Motor and sensory grossly within normal limits. Nonfocal. Normal speech. PSYCHIATRIC: Calm and cooperative. Procedures None A/P Problem List: (1) Renal insufficiency ICD Code: N28.9 - Disorder of kidney and ureter, unspecified (2) Renal cell carcinoma ICD Code: C64.9 - Malignant neoplasm of unspecified kidney, except renal pelvis (3) Orthostasis ICD Code: I95.1 - Orthostatic hypotension Status: Acute (4) Vertigo ICD Code: R42 - Dizziness and giddiness Status: Acute (5) Generalized weakness ICD Code: R53.1 - Weakness Status: Acute (6) Paroxysmal atrial fibrillation ICD Code: I48.0 - Paroxysmal atrial fibrillation Status: Acute (7) Hypertensive heart disease ICD Code: I11.9 - Hypertensive heart disease without heart failure Status: Acute (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 Syncopal/near syncopal episodes, dizziness, recurrent falls - suspect secondary to orthostatic hypotension CT the head stable MRI the brain unremarkable except for mild to moderate small vessel ischemic changes Carotid ultrasound shows mild atherosclerotic disease MRA head shows hypoplastic right A1 segment otherwise unremarkable Trops negative x 3 Echo reveals EF 55-60% -Neurology following, appreciate assistance -neuro checks -continue on cardiac telemetry -Fall precautions Orthostatic hypotension Patient's blood pressure drops from 195/106 supine to 79/52 with standing Patient unable to participate with PT yesterday as he became unresponsive upon standing -Consulted patient's plasterer spot Dr. Ny to assist with BP management , appreciate assistance. Awaiting eval/recs. -For now, will only treat standing blood pressures. Discussed with nursing staff. -Continue to hold Vesicare as likely contributing to orthostasis. Hold imipramine as well. -Discussed with patient slow transitions. Apply SAI hose prior to getting up out of bed in the morning. -Continue fall precautions KARIME on CKD, suspect secondary to dehydration/poor oral intake Creatinine 1.77, now 1.47 -Encourage po fluid intake -Avoid nephrotoxic agents -Continue to monitor kidney function, repeat BMP in a.m. Hypertension -Patient resumed on home dose of lisinopril. Recommend treating standing blood pressures only given significant orthostasis. -Continue to monitor BP Dyslipidemia -Continue patient on statin therapy DVT prophylaxis -SAI/SCD Discharge Planning Not ready for discharge. Discharge pending neurology and cardiology clearance. Patient is unsafe discharge. Karla Nash Feb 08, 2018 15:54
[2018-02-08] MEDS: ENOXAPARIN SODIUM 40 MG/0.4 ML SYRINGE SQ SCH (17:09)
[2018-02-08 18:43] LABS: CREATININE, RANDOM URINE 23.7 MG/DL
[2018-02-08] MEDS ORDERED: SODIUM CHLOR 0.9% 1000 ML INJ 1,000 ML IV SCH (21:00)
--- NOTE | 2018-02-08 21:12 | RADRPT ---
EXAM DATE: 02/08/2018 9:05 PM EDT AGE/SEX: 77 years / Male INDICATIONS: Elevated labs. CLINICAL DATA: This is the patient's initial encounter. Patient reports that signs and symptoms have been present for 1 day and indicates a pain score of 0/10. MEDICAL/SURGICAL HISTORY: Hypercholesterolemia. Hypertension. Syncope. Renal failure. Renal ca ncer. Arthritis. Syncope. Nephrectomy, right. Cholecystectomy. Prostatectomy. COMPARISON: . MEASUREMENTS: Right Kidney:__n/a Surgically absent. Left Kidney:__11.0 x 4.5 x 5.6 cm FINDINGS: Right Kidney: Surgically absent. Left Kidney: Increased echotexture. No mass or hydronephrosis. Bladder: Within normal limits given the degree of distension. Other: None CONCLUSION: 1. Prior right nephrectomy. 2. Left kidney with sonographic findings suggesting underlying medical renal disease. No obstruction . Electronically signed by: Valentín Acevedo MD 02/08/2018 9:10 PM EDT
--- NOTE | 2018-02-08 21:33 | MB ---
cc: Antoni Ervin MD,Garrett Ny,Vamshi Boggs MD DATE: 02/08/2018 COVERING FOR: Vamshi Ny MD REASON FOR CONSULTATION: Orthostatic hypotension. HISTORY OF PRESENT ILLNESS: Mr. Malhotra is a pleasant 77-year-old gentleman with history of orthostatic hypotension/chronic sinus bradycardia/likely autonomic dysfunction. Questionable history of diastolic heart failure in the past. Chronic lower extremity edema. Dyspnea on exertion and dementia. Urinary incontinence, taking VESIcare. He comes in with recurrent episodes of near syncope and falling. He was checked in the emergency room and was found to have significant orthostatic hypotension with a drop close to 90-100 mmHg from lying to standing. Denies chest pain. Currently, denies any shortness of breath. Denies palpitations. Denies complete syncope. He did fall, however, and hit his head. Denies orthopnea, PND. Has occasional ankle swelling. ALLERGIES: "COLCHICINE AND LABETALOL." PAST MEDICAL AND SURGICAL HISTORY: Includes as mentioned above. 1. History of osteoarthritis. 2. Depression. 3. Renal cell CA, status post nephrectomy. 4. Hyperlipidemia. 5. Hearing deficit. 6. Spinal stenosis and chronic hip pains. 7. Migraine headaches. 8. Sleep apnea. 9. Gout. 10. GERD. 11. Left shoulder fracture. 12. Chronic back pain. 13. Status post cholecystectomy. 14. Right nephrectomy. 15. CAD and coronary intervention in the past. I believe last cardiac catheterization was 01/2010. 16. Prostate surgery. MEDICATIONS AT HOME: Includes the following: Spironolactone 25 mg p.o. daily, lisinopril 10 mg p.o. daily, amlodipine 7.5 mg p.o. daily, Lipitor 20 mg p.o. at bedtime, Ecotrin 81 mg p.o. daily, fish oil supplements, sublingual nitroglycerin for p.r.n. use., allopurinol 100 mg p.o. daily, citalopram 20 mg p.o. daily, hydrocodone p.r.n. q.a.m., VESIcare 5 mg p.o. at bedtime, imipramine not sure about the dose 1 daily, butalbital/acetaminophen/caffeine p.r.n. with pain, Dramamine p.r.n. REVIEW OF SYSTEMS: A 12-point system review was unremarkable, except what is mentioned in the history of present illness and the past medical and surgical history. PHYSICAL EXAMINATION: GENERAL: A 77-year-old gentleman, lying in bed, in no apparent distress, alert and oriented. VITAL SIGNS: Blood pressure is 166/100. It can go as high as 221/117 lying flat and standing 85/54 mmHg. Pulse of 68 beats per minute and regular, respiration 14 per minute, afebrile. HEENT: Shows head is normocephalic. Pupils equal and reactive. Throat is within normal limits. NECK: Supple. No carotid bruits. No jugular venous distention noted. No thyromegaly. LUNGS: Clear to auscultation and percussion. CARDIOVASCULAR: S1, S2 are distant. Faint S4 gallop. No rubs or murmurs. ABDOMEN: Exam is somewhat obese, but lax, nontender. Normoactive bowel sounds. No organomegaly. No masses felt. EXTREMITIES: No clubbing, cyanosis or edema. Pulses 2+ bilaterally and no bruit noted. NEUROLOGICAL: Grossly intact with no focal deficits. RECTAL: Deferred. DIAGNOSTIC DATA: EKG shows sinus bradycardia at 58 beats per minute, cannot rule out an old inferior infarction. Not significantly changed compared to prior tracing. He had an echocardiogram. This was done yesterday, which showed normal LV systolic function and no significant valve pathology. His last echocardiogram from 06/2016 showed similar findings with grade 1 diastolic dysfunction and left ventricular hypertrophy. Nuclear stress study from 11/[address] and MRA of the carotids and the brain on this admission were unremarkable. Chest x-ray was unremarkable. Carotid ultrasound also unremarkable. LABORATORY DATA: Shows a troponin I x3 was within normal limits. I am not sure why it was drawn. BUN of 32, creatinine 1.77, sodium 138, potassium 4.1. Magnesium and phosphorus levels are normal. TSH and free T4 levels are normal. ASSESSMENT AND RECOMMENDATIONS: 1. Orthostatic hypotension with recurrent falls, likely autonomic dysfunction and this is likely aggravated by his medications. I agree with discontinuing all his home medications at the present time. Keep the lisinopril and will increase to 10 mg p.o. b.i.d. for better blood pressure control. I would hold off on the diuretics and the hydrocodone. Avoid clonidine. I do agree with a bilateral lower extremity elastic stockings. If this becomes a continuous problem, then a combination of low-dose midodrine plus antihypertensive may be helpful. Try to avoid diuretics if possible and will hydrate with saline overnight. PT to see and ambulate carefully. Low-dose metoprolol succinate 25 mg daily will be added to his regimen as well with keeping a close eye on telemetry because he has a history of sinus bradycardia, but he also has premature ventricular contractions, which might help. 2. Coronary artery disease. Denies any angina. 3. Hyperlipidemia. Continue Lipitor and follow up as an outpatient. 4. Hypertension. 5. Urinary incontinence. Would avoid VESIcare because it can be very well contributing to his orthostatic hypotension/autonomic dysfunction. He is to follow with his urologist for alternatives if possible. 6. Further recommendations will follow. MD JAYDEN Vitale/DESTINI , 08:57 PM , 09:32 PM
[2018-02-08] MEDS: ATORVASTATIN 10 MG TAB PO SCH (21:50)
[2018-02-08] MEDS: METOPROLOL SUCCINATE 25 MG EXTENDED RELEASE TAB PO SCH (21:57)
[2018-02-09] VITALS (8 sets, daily range): BP systolic 77–191; BP diastolic 50–93; PULSE 54–80; RESP 16–20; TEMP 98–98.5; O2SAT 94–98
[2018-02-09] MEDS: MECLIZINE HCL 25 MG TAB PO SCH (02:12)
[2018-02-09 06:35] LABS: INTERNATIONAL NORMALIZED RATIO 1.1 RATIO; PROTHROMBIN TIME - PATIENT 10.7 SEC (9.8-11.6)
[2018-02-09 06:52] LABS: BICARBONATE 23.7 MEQ/L (21.0-32.0); CALCIUM 8.5 MG/DL (8.5-10.1); CREATININE 1.49 MG/DL (0.60-1.30)
[2018-02-09] MEDS: INSULIN ASPART SUPPLEMENTAL SCALE SQ SCH ×4 (08:00→21:06)
[2018-02-09] MEDS ORDERED: ACETAMIN 325 MG/BUTALBITAL 50 MG/CAFFEINE 40 MG TAB PO ONE (08:00)
[2018-02-09] MEDS: DOCUSATE SODIUM 50 MG/SENNA 8.6 MG TAB PO SCH ×2 (09:00→20:38)
[2018-02-09] MEDS: ASPIRIN 81 MG CHEW TAB PO SCH (10:04)
[2018-02-09] MEDS: ALLOPURINOL 100 MG TAB PO SCH ×2 (10:04→20:38)
[2018-02-09] MEDS: hydrALAZINE HCL 25 MG TAB PO PRN (10:04)
[2018-02-09] MEDS: LISINOPRIL 10 MG TAB PO SCH ×2 (10:04→20:38)
[2018-02-09] MEDS: SODIUM CHLORIDE 0.9% FLUSH 10 ML FLUSH IV FLUSH SCH ×2 (10:05→20:37)
[2018-02-09] MEDS: ACETAMINOPHEN/HYDROcodone 325 MG/7.5 MG TAB PO PRN (12:49)
--- NOTE | 2018-02-09 14:55 | HHI.PR ---
Subjective Remarks Follow up on patient with orthostatic hypotension. Patient seen and examined. Patient denies any dizziness at present. States he has not been up yet today. He denies any chest pain, palpitations or shortness of breath. Denies any nausea, vomiting or abdominal pain. He also reports left-sided headache. He states he is a chronic migraine suffer and this headache is similar to other migraine flares he has had in the past. Objective Vitals Vital Signs Date Time Temp Pulse Resp B/P (MAP) Pulse Ox O2 Delivery O2 Flow Rate FiO2 02/09/18 13:51 22 02/09/18 12:31 98.5 60 20 180/90 (120) 96 135/85 (102) 77/50 (59) 02/09/18 11:28 20 02/09/18 08:12 98.2 68 18 190/90 (123) 98 02/09/18 05:57 21 02/09/18 05:35 98.2 56 18 191/88 (122) 96 123/79 (94) 02/09/18 01:25 98.0 60 16 135/90 (105) 96 166/93 (117) 02/08/18 20:16 97.9 66 16 166/96 (119) 96 02/08/18 16:24 66 02/08/18 16:20 97.8 66 18 221/117 (151) 94 166/108 (127) 85/54 (64) I/O 02/08/18 02/08/18 02/08/18 02/09/18 02/09/18 02/09/18 07:00 15:00 23:00 07:00 15:00 23:00 Intake Total 480 ml Output Total 500 ml Balance -20 ml Intake Oral 480 ml Output Urine Total 500 ml # Bowel Movements 1 Result Diagram: 02/07/18 0441 02/09/18 0529 Imaging Last Impressions Renal Ultrasound 02/08/18 0000 Signed Impressions: CONCLUSION: 1. Prior right nephrectomy. 2. Left kidney with sonographic findings suggesting underlying medical renal d isease. No obstruction. Head CT 02/06/18 1227 Signed Impressions: CONCLUSION: 1. Stable CT scan of the brain compared to 2014. 2. No acute intracranial hemorrhage. Head Magnetic Resonance Angiography 02/06/18 0000 Signed Impressions: CONCLUSION: 1. Hypoplastic right A1 segment. 2. Otherwise, unremarkable MRA examination of the brain. Chest X-Ray 02/06/18 Signed Impressions: CONCLUSION: Under inflation with atelectasis at the lung bases. Otherwise, no acute finding is appreciated. Carotid Artery Ultrasound 02/06/18 Signed Impressions: CONCLUSION: 1. Right Internal Carotid Artery: Mild atherosclerotic disease 2. Left Internal Carotid Artery: Mild atherosclerotic disease Brain MRI 02/06/18 Signed Impressions: CONCLUSION: 1. [id number] periventricular small vessel ischemic white matter denomin ation. 2. Otherwise, unremarkable MRI examination of the brain. Objective Remarks GENERAL: This is a well-nourished, well-developed elderly male patient, in no apparent distress. Awake and alert. SKIN: Warm and dry. Superficial abrasions noted on bilateral knees. HEAD: Atraumatic. Normocephalic. 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 Extraocular motions intact. No scleral icterus. No injection or drainage. ENT: Nose without bleeding or purulent drainage. Airway patent. MMM. NECK: Trachea midline. CARDIOVASCULAR: Regular rate and rhythm without murmurs, gallops, or rubs. RESPIRATORY: Nonlabored. Clear to auscultation. Breath sounds equal bilaterally. No wheezes, rales, or rhonchi. GASTROINTESTINAL: Abdomen soft, non-tender, nondistended. No guarding. MUSCULOSKELETAL: Extremities without clubbing, cyanosis, or edema. No calf tenderness. NEUROLOGICAL: Awake and alert. Cranial nerves II through XII grossly intact. Motor and sensory grossly within normal limits. Nonfocal. Normal speech. PSYCHIATRIC: Calm and cooperative. Procedures None A/P Problem List: (1) Renal insufficiency ICD Code: N28.9 - Disorder of kidney and ureter, unspecified (2) Renal cell carcinoma ICD Code: C64.9 - Malignant neoplasm of unspecified kidney, except renal pelvis (3) Orthostasis ICD Code: I95.1 - Orthostatic hypotension Status: Acute (4) Vertigo ICD Code: R42 - Dizziness and giddiness Status: Acute (5) Generalized weakness ICD Code: R53.1 - Weakness Status: Acute (6) Paroxysmal atrial fibrillation ICD Code: I48.0 - Paroxysmal atrial fibrillation Status: Acute (7) Hypertensive heart disease ICD Code: I11.9 - Hypertensive heart disease without heart failure Status: Acute (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 Syncopal/near syncopal episodes, dizziness, recurrent falls - suspect secondary to orthostatic hypotension CT the head stable MRI the brain unremarkable except for mild to moderate small vessel ischemic changes Carotid ultrasound shows mild atherosclerotic disease MRA head shows hypoplastic right A1 segment otherwise unremarkable Trops negative x 3 Echo reveals EF 55-60% -Neurology following, appreciate assistance -neuro checks -continue on cardiac telemetry -Fall precautions Orthostatic hypotension Patient's blood pressure drops from 195/106 supine to 79/52 with standing Patient unable to participate with PT as he became unresponsive upon standing Carotid massage is contraindicated -Evaluated by cardiology, appreciate recommendations. Discussed with Dr. Bush. Patient started on metoprolol XL 25 mg daily. Lisinopril increased to 10 mg twice daily. Avoid Clonidine. Given IVF hydration. May benefit from addition of low-dose Midodrine in combo with antihypertensive if he doesn't respond to present treatment. Caution use of Midodrine given elevated BPs while supine. -Discussed with patient slow transitions. Apply SAI hose prior to getting up out of bed in the morning. -Continue fall precautions KARIME on CKD, suspect secondary to dehydration/poor oral intake History of RCC s/p right nephrectomy Creatinine 1.77, creatinine improved pending IVF hydration but now trending up -Consult Nephrology, appreciate assistance -FENa >4. Check PVRs. Strict I&Os. -Ultrasound shows underlying medical renal disease left kidney, no obstruction -Avoid nephrotoxic agents -Continue to monitor kidney function, repeat BMP in a.m. Hypertension -continue on Toprol XL and Lisinopril 10mg BID with parameters per Cardiology -Continue to monitor BP Chronic migraines, complaining of headache -Trial of Fioricet Dyslipidemia -Continue patient on statin therapy DVT prophylaxis -Lovenox sq Discharge Planning Not ready for discharge. Discharge pending neurology and cardiology clearance. Patient is unsafe discharge. Karla Nash Feb 09, 2018 14:55
[2018-02-09] MEDS: ONDANSETRON ODT 4 MG TAB PO PRN (15:27)
[2018-02-09] MEDS: ENOXAPARIN SODIUM 40 MG/0.4 ML SYRINGE SQ SCH (17:36)
[2018-02-09] MEDS: METOPROLOL SUCCINATE 25 MG EXTENDED RELEASE TAB PO SCH (20:38)
[2018-02-09] MEDS: ATORVASTATIN 10 MG TAB PO SCH (20:38)
[2018-02-09] MEDS ORDERED: METOPROLOL SUCCINATE 25 MG EXTENDED RELEASE TAB PO SCH (21:00)
[2018-02-10] VITALS (14 sets, daily range): BP systolic 91–225; BP diastolic 54–111; PULSE 47–58; RESP 16–22; TEMP 97.6–98.1; O2SAT 94–99
--- NOTE | 2018-02-10 03:29 | MB ---
cc: Mireille Trujillo MD DATE: 02/09/2018 REASON FOR CONSULTATION: Elevated BUN and creatinine, for evaluation. HISTORY OF PRESENT ILLNESS: This is a 77-year-old male with past medical history of chronic kidney disease with single kidney, history of ischemic heart disease, congestive heart failure, hypertension, chronic back pain, sleep apnea and osteoarthritis who was brought to the hospital because of recurrent falls and hypotension. I was called to see the patient because of chronic kidney disease and recurrent hypotension. The patient has a history of chronic kidney disease and right nephrectomy for renal cell carcinoma, and he was followed by Urology. He was not followed by Nephrology. We do not know his baseline creatinine, but when he came in here, the creatinine was found to be 1.7. It has improved to 1.3-1.4. Looking back, it seems like his creatinine in 2014 was 1.0-1.2. The patient denies any vomiting, but he has nausea and has decreased appetite. He has no history of diarrhea. Denies any dysuria, hematuria or difficulty passing urine. There is no history of renal stone. Denies taking any nonsteroidal anti-inflammatory drugs. Patient has been falling down at home for the last one month and has multiple ____ in his knees. There is no definite loss of consciousness. He feels dizzy and unsteady when he stands up. There is no headache, no chest pain. PAST MEDICAL HISTORY: Hypertension, chronic kidney disease, ischemic heart disease, congestive heart failure, sleep apnea, chronic back pain, osteoarthritis, renal cell carcinoma. PAST SURGICAL HISTORY: Right nephrectomy, cholecystectomy, cardiac catheterization with stent, bilateral cataract surgery, history of prostate surgery. REVIEW OF SYSTEMS: The patient has no history of fever. He has generalized weakness and a history of recurrent falls, with trauma to his knees. There is no history of shortness of breath or chest pain. He feels dizzy when he stands up. There is no dysuria, hematuria or difficulty passing urine. SOCIAL HISTORY: The patient has no history of smoking or alcoholism. FAMILY HISTORY: Noncontributory. ALLERGIES: HE IS ALLERGIC TO COLCHICINE AND LABETALOL. MEDICATIONS: Currently, he is on the following medications: 1. Insulin aspart before meals and at bedtime. 2. Guillermina-Colace 1 tablet b.i.d. 3. Allopurinol 100 mg b.i.d. 4. Lisinopril 10 mg b.i.d. 5. Aspirin 81 mg daily. 6. Midodrine 2.5 mg twice a day. 7. Lipitor 10 mg once a day. 8. Metoprolol 50 mg at bedtime. 9. ____ 25 mg 1 dose was given. 10. Lovenox 40 mg subcutaneous every 24 hours. 11. Tylenol. 12. Zofran. 13. Reglan as needed. 14. Morphine as needed. PHYSICAL EXAMINATION: GENERAL: Awake, alert. He is not in any acute distress. VITAL SIGNS: Blood pressure is 159/93, temperature is 98.2, oxygen saturation is 94-95%. The patient has a standing blood pressure of 77/50. This was done around midday today, with his supine blood pressure 180/90. HEENT: Pupils are mid constricted. Nonicteric sclerae. Conjunctivae normal. NECK: Supple. JVD is not elevated. LUNGS: The patient has bilateral good air entry. HEART: S1, S2. Regular rate and rhythm. ABDOMEN: Soft, flat. There is no tenderness. Bowel sounds are positive. EXTREMITIES: There is no pedal edema. LABORATORY DATA: WBC count is 8.0, hemoglobin 13.3, platelet count 145, neutrophils 64.2%. Sodium 140, potassium 3.7, chloride 107, bicarbonate 23.7, BUN 25, creatinine 1.4, calcium is 8.5. INR 1.1. Urinalysis showing no proteinuria with low rbc's. IMAGING STUDIES: The patient has ultrasound of the kidneys done which shows that he is post right nephrectomy, and the left kidney with sonographic finding of chronic medical disease. There is no obstruction. CT scan of the brain was done and it shows that there is no acute intracranial hemorrhage. MRI of the brain was done and it shows mild to moderate periventricular small vessel disease, otherwise unremarkable. Carotid ultrasound was done which shows mild atherosclerotic disease. MRA of the head was done which shows a hypoplastic right A1 segment, otherwise unremarkable MRA of the brain. ASSESSMENT AND PLAN: 1. Recurrent falls with orthostatic hypotension. 2. Chronic kidney disease. 3. History of hypertension. 4. History of arthritis. The patient has significant orthostatic hypotension. Most likely this is related to autonomic neuropathy. Clinically, he does not look dehydrated. He has some acute kidney injury on admission with a creatinine of 1.7, but it has improved now to 1.3-1.4, which is probably his baseline now. He has a single kidney with a GFR of around 46-51. The patient is started on midodrine. I will also put him on fludrocortisone. Watch for any fluid overload status. Potassium was on the lower side, and this needs to be also followed closely. Avoid any nephrotoxins. Thank you for the consultation. During the weekend, the patient will be followed by Dr. Sunny Schwartz. MD RAMSEY Andrews/WALLY , 10:03 PM , 03:28 AM
[2018-02-10] MEDS: hydrALAZINE HCL 25 MG TAB PO PRN (03:56)
[2018-02-10] MEDS: MIDODRINE 5 MG TAB PO SCH ×2 (06:02→13:26)
[2018-02-10 08:11] LABS: PROTHROMBIN TIME - PATIENT 10.6 SEC (9.8-11.6)
[2018-02-10] MEDS: ALLOPURINOL 100 MG TAB PO SCH ×2 (08:20→21:52)
[2018-02-10] MEDS: FLUDROCORTISONE ACETATE 0.1 MG TAB PO SCH (08:20)
[2018-02-10] MEDS: DOCUSATE SODIUM 50 MG/SENNA 8.6 MG TAB PO SCH ×2 (08:20→21:48)
[2018-02-10] MEDS: LISINOPRIL 10 MG TAB PO SCH (08:20)
[2018-02-10] MEDS: ASPIRIN 81 MG CHEW TAB PO SCH (08:21)
[2018-02-10] MEDS: SODIUM CHLORIDE 0.9% FLUSH 10 ML FLUSH IV FLUSH SCH ×2 (08:22→21:48)
[2018-02-10 08:27] LABS: BICARBONATE 26.2 MEQ/L (21.0-32.0); CALCIUM 8.8 MG/DL (8.5-10.1); CREATININE 1.56 MG/DL (0.60-1.30)
--- NOTE | 2018-02-10 10:22 | HHI.PR ---
Subjective Remarks Follow up on patient with orthostatic hypotension. Patient seen and examined. Patient denies any dizziness this morning but he has not been up out of bed yet. He is complaining of mild left ear discomfort, chronic, ongoing for the past month. States his headache improved with the Fioricet. He denies any chest pain, palpitations or shortness of breath. Denies any nausea, vomiting or abdominal pain. He states that his daughter is planning to come and live with him after his discharge. Objective Vitals Vital Signs Date Time Temp Pulse Resp B/P (MAP) Pulse Ox O2 Delivery O2 Flow Rate FiO2 02/10/18 08:09 54 02/10/18 07:44 98.1 54 18 199/99 (132) 96 143/82 (102) 91/54 (66) 02/10/18 06:20 174/82 (112) 02/10/18 04:47 55 16 183/93 (123) 94 02/10/18 03:39 97.9 58 16 182/108 (132) 95 02/10/18 00:09 98.0 57 16 173/79 (110) 94 02/09/18 23:00 54 02/09/18 20:06 98.2 75 16 159/93 (115) 94 02/09/18 19:41 95 21 02/09/18 17:04 98.2 80 20 168/80 (109) 97 02/09/18 13:51 22 02/09/18 12:31 98.5 60 20 180/90 (120) 96 135/85 (102) 77/50 (59) 02/09/18 11:28 20 I/O 02/09/18 02/09/18 02/09/18 02/10/18 02/10/18 02/10/18 07:00 15:00 23:00 07:00 15:00 23:00 Intake Total 220 ml Output Total 330 ml 400 ml Balance -330 ml -180 ml Intake Oral 220 ml Output Urine Total 330 ml 400 ml # Bowel Movements 2 Result Diagram: 02/07/18 0441 02/10/18 0738 Imaging Last Impressions Renal Ultrasound 02/08/18 0000 Signed Impressions: CONCLUSION: 1. Prior right nephrectomy. 2. Left kidney with sonographic findings suggesting underlying medical renal d isease. No obstruction. Head CT 02/06/18 1227 Signed Impressions: CONCLUSION: 1. Stable CT scan of the brain compared to 2015. 2. No acute intracranial hemorrhage. Head Magnetic Resonance Angiography 02/06/18 Signed Impressions: CONCLUSION: 1. Hypoplastic right A1 segment. 2. Otherwise, unremarkable MRA examination of the brain. Chest X-Ray 02/06/18 Signed Impressions: CONCLUSION: Under inflation with atelectasis at the lung bases. Otherwise, no acute finding is appreciated. Carotid Artery Ultrasound 02/06/18 Signed Impressions: CONCLUSION: 1. Right Internal Carotid Artery: Mild atherosclerotic disease 2. Left Internal Carotid Artery: Mild atherosclerotic disease Brain MRI 02/06/18 Signed Impressions: CONCLUSION: 1. [id number] periventricular small vessel ischemic white matter denomin ation. 2. Otherwise, unremarkable MRI examination of the brain. Objective Remarks GENERAL: This is a well-nourished, well-developed elderly male patient, in no apparent distress. Awake and alert. Sitting up in bed. SKIN: Warm and dry. Superficial abrasions noted on bilateral knees. HEAD: Atraumatic. Normocephalic. 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 Extraocular motions intact. No scleral icterus. No injection or drainage. ENT: Nose without bleeding or purulent drainage. Airway patent. MMM. Left ear canal + cerumen impaction, unable to visualize tympanic membrane. NECK: Trachea midline. CARDIOVASCULAR: Regular rate and rhythm without murmurs, gallops, or rubs. RESPIRATORY: Nonlabored. Clear to auscultation. Breath sounds equal bilaterally. No wheezes, rales, or rhonchi. GASTROINTESTINAL: Abdomen soft, non-tender, nondistended. No guarding. MUSCULOSKELETAL: Extremities without clubbing, cyanosis, or edema. No calf tenderness. NEUROLOGICAL: Awake and alert. Cranial nerves II through XII grossly intact. Motor and sensory grossly within normal limits. Nonfocal. Normal speech. PSYCHIATRIC: Calm and cooperative. Procedures None A/P Problem List: (1) Renal insufficiency ICD Code: N28.9 - Disorder of kidney and ureter, unspecified (2) Renal cell carcinoma ICD Code: C64.9 - Malignant neoplasm of unspecified kidney, except renal pelvis (3) Orthostasis ICD Code: I95.1 - Orthostatic hypotension Status: Acute (4) Vertigo ICD Code: R42 - Dizziness and giddiness Status: Acute (5) Generalized weakness ICD Code: R53.1 - Weakness Status: Acute (6) Paroxysmal atrial fibrillation ICD Code: I48.0 - Paroxysmal atrial fibrillation Status: Acute (7) Hypertensive heart disease ICD Code: I11.9 - Hypertensive heart disease without heart failure Status: Acute (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 Syncopal/near syncopal episodes, dizziness, recurrent falls - suspect secondary to orthostatic hypotension CT the head stable MRI the brain unremarkable except for mild to moderate small vessel ischemic changes Carotid ultrasound shows mild atherosclerotic disease MRA head shows hypoplastic right A1 segment otherwise unremarkable Trops negative x 3 Echo reveals EF 55-60% -Neurology following, appreciate assistance -neuro checks -continue on cardiac telemetry -Fall precautions Orthostatic hypotension in patient with known HTN, secondary to autonomic dysfunction Patient's blood pressure drops from 195/106 supine to 79/52 with standing Patient unable to participate with PT as he became unresponsive upon standing Carotid massage is contraindicated -Evaluated by cardiology, appreciate recommendations. Discussed with Dr. Bush. Patient started on metoprolol XL 25 mg daily. Lisinopril increased to 10 mg twice daily. Avoid Clonidine. Given IVF hydration. May benefit from addition of low-dose Midodrine in combo with antihypertensive if he doesn't respond to present treatment. Caution use of Midodrine given elevated BPs while supine. 02/10 Toprol increased to 50 mg and low-dose midodrine 2.5 mg daily added. BP standing better today at 91/54 but supine was 199/99. Recheck orthostatics at 2 :00 today. Also, Justin added by nephrology. -Discussed with patient slow transitions. Apply SAI hose prior to getting up out of bed in the morning. -Continue fall precautions KARIME on CKD, suspect secondary to dehydration/poor oral intake History of RCC s/p right nephrectomy Creatinine 1.77, creatinine improved pending IVF hydration but now trending up PVRs below 200 -Nephrology following, appreciate assistance. Renin and aldosterone levels pending. -continue to monitor I&Os -Ultrasound shows underlying medical renal disease left kidney, no obstruction -Avoid nephrotoxic agents -Continue to monitor kidney function Hypertension -continue on Toprol XL and Lisinopril 10mg BID with parameters per Cardiology -Continue to monitor BP Chronic migraines -Fioricet prn Dyslipidemia -Continue patient on statin therapy Cerumen impaction left ear -Begin Debrox drops DVT prophylaxis -Lovenox sq Discharge Planning Not ready for discharge. Discharge pending neurology and cardiology clearance. Patient is unsafe discharge at this time. CM to assist with discharge planning. Karla Nash Feb 10, 2018 10:22
[2018-02-10] MEDS ORDERED: ACETAMIN 325 MG/BUTALBITAL 50 MG/CAFFEINE 40 MG TAB PO PRN (10:30)
[2018-02-10] MEDS: CARBAMIDE PEROXIDE 6.5% OTIC SOLN 15 ML BTL LEFT EAR SCH ×2 (10:53→21:48)
[2018-02-10] MEDS ORDERED: MIDODRINE 5 MG TAB PO SCH (16:00)
[2018-02-10] MEDS ORDERED: PILL SPLITTER OTHER PRN (16:00)
[2018-02-10] MEDS ORDERED: SENNOSIDES 8.6 MG TAB PO SCH (16:00)
[2018-02-10] MEDS: ENOXAPARIN SODIUM 40 MG/0.4 ML SYRINGE SQ SCH (16:45)
[2018-02-10] MEDS: ONDANSETRON ODT 4 MG TAB PO PRN (19:50)
[2018-02-10] MEDS ORDERED: SODIUM CHLOR 0.9% 1000 ML INJ 1,000 ML IV ONE (20:45)
--- NOTE | 2018-02-10 20:45 | HHI.NPPN ---
Subjective Additional Remarks some nausea earlier today, no other acute complaints Objective Data Data 02/10/18 02/11/18 19:00 07:00 Intake Total 500 ml Output Total 335 ml Balance 165 ml Intake Oral 500 ml Output Urine Total 335 ml # Voids 95 Vital Signs Date Time Temp Pulse Resp B/P (MAP) Pulse Ox O2 Delivery O2 Flow Rate FiO2 02/10/18 19:55 97 02/10/18 16:59 57 02/10/18 15:11 141/85 (103) 02/10/18 14:46 53 214/101 (138) 159/100 (119) 98/61 (73) 02/10/18 13:18 53 02/10/18 11:12 97.6 57 18 165/91 (115) 95 02/10/18 10:14 21 02/10/18 08:09 54 02/10/18 07:44 98.1 54 18 199/99 (132) 96 143/82 (102) 91/54 (66) 02/10/18 06:20 174/82 (112) 02/10/18 04:47 55 16 183/93 (123) 94 02/10/18 03:39 97.9 58 16 182/108 (132) 95 02/10/18 00:09 98.0 57 16 173/79 (110) 94 02/09/18 23:00 54 -: 02/07/18 0441 02/10/18 0738 Physical Exam General Appearance: Well Developed, Well Nourished, No Acute Distress Throat Throat Exam: Oral Mucosa [place] & Moist Neck Neck Exam: Neck Supple Pulmonary Resp Exam: Clear Bilaterally, Decreased Bases Cardiology CV Exam: Regular, Normal Sinus Rhythm Gastrointestinal/Abdomen GI Exam: Soft, Non-Tender, Bowel Sounds Present Musculoskeletal MS Exam: Joints Intact Integumentary Skin Exam: Warm, Dry, Intact Extremeties Extremities Exam: Trace Edema Neurologic Neuro Exam: Alert, Awake, Oriented, Speech Clear Psychiatric Psych Exam: Appropriate Responses Assessment/Plan Problem List: (1) CKD (chronic kidney disease) ICD Codes: N18.9 - Chronic kidney disease, unspecified Plan: Creatinine at 1.56 today. He has some acute kidney injury on admission with a creatinine of 1.7, but it has improved now to likely baseline level He has a single kidney with a GFR of around 46-51. 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 Most likely this is related to autonomic neuropathy. Continue to follow with cardiology - on midodrine as well as Florinef, in addition to anti-hypertensives. Will give 1L NS to further support intra-vascular volume repletion - however it appears to be primarily an autonomic etiology for symptoms. Sunny Schwartz MD Feb 10, 2018 20:45
[2018-02-10] MEDS ORDERED: METOPROLOL SUCCINATE 50 MG EXTENDED RELEASE TAB PO SCH (21:00)
[2018-02-10] MEDS: ATORVASTATIN 10 MG TAB PO SCH (21:48)
[2018-02-10] MEDS: LISINOPRIL 20 MG TAB PO SCH (21:49)
[2018-02-10] MEDS: SENNOSIDES 8.6 MG TAB PO SCH (21:54)
[2018-02-10] MEDS: METOCLOPRAMIDE HCL 10 MG/2 ML VIAL IV PUSH PRN (23:47)
[2018-02-11] VITALS (8 sets, daily range): BP systolic 62–204; BP diastolic 58–111; PULSE 53–70; RESP 19–22; TEMP 97.9–98.6; O2SAT 94–100
[2018-02-11 05:23] LABS: INTERNATIONAL NORMALIZED RATIO 1.1 RATIO; PROTHROMBIN TIME - PATIENT 10.7 SEC (9.8-11.6)
[2018-02-11 05:35] LABS: CALCIUM 8.7 MG/DL (8.5-10.1); CREATININE 1.47 MG/DL (0.60-1.30)
[2018-02-11] MEDS: MIDODRINE 5 MG TAB PO SCH ×2 (06:37→12:38)
[2018-02-11] MEDS: SENNOSIDES 8.6 MG TAB PO SCH ×2 (07:38→21:00)
[2018-02-11] MEDS: LISINOPRIL 20 MG TAB PO SCH ×2 (08:36→21:33)
[2018-02-11] MEDS: ASPIRIN 81 MG CHEW TAB PO SCH (08:36)
[2018-02-11] MEDS: DOCUSATE SODIUM 50 MG/SENNA 8.6 MG TAB PO SCH ×2 (08:36→21:00)
[2018-02-11] MEDS: ALLOPURINOL 100 MG TAB PO SCH ×2 (08:36→21:33)
[2018-02-11] MEDS: SODIUM CHLORIDE 0.9% FLUSH 10 ML FLUSH IV FLUSH SCH ×2 (08:37→21:35)
[2018-02-11] MEDS: CARBAMIDE PEROXIDE 6.5% OTIC SOLN 15 ML BTL LEFT EAR SCH ×2 (08:37→21:35)
[2018-02-11] MEDS: FLUDROCORTISONE ACETATE 0.1 MG TAB PO SCH (08:39)
[2018-02-11] MEDS ORDERED: METOPROLOL SUCCINATE 25 MG EXTENDED RELEASE TAB PO ONE (12:00)
[2018-02-11] MEDS: LACTULOSE SYRUP 20 GM/30 ML CUP PO PRN (12:39)
[2018-02-11] MEDS ORDERED: POTASSIUM CHLORIDE 20 MEQ CONTROLLED RELEASE TAB PO ONE (14:30)
--- NOTE | 2018-02-11 14:30 | HHI.NPPN ---
Subjective Additional Remarks ongoing orthostatic hypotension, no acute complaints. Objective Data Data Vital Signs Date Time Temp Pulse Resp B/P (MAP) Pulse Ox O2 Delivery O2 Flow Rate FiO2 02/11/18 11:54 97.9 57 22 204/102 (136) 97 162/77 (105) 75/95 (88) 62/58 (59) 02/11/18 08:00 98.6 62 21 188/111 (136) 94 02/11/18 04:00 57 02/11/18 04:00 98.1 60 20 151/90 (110) 94 02/11/18 02:00 58 02/11/18 00:00 60 02/10/18 22:24 97.9 56 22 217/97 (137) 99 02/10/18 21:10 98.1 47 18 225/102 (143) 95 204/111 (142) 02/10/18 19:55 97 02/10/18 16:59 57 02/10/18 15:11 141/85 (103) 02/10/18 14:46 53 214/101 (138) 159/100 (119) 98/61 (73) -: 02/07/18 0441 02/11/18 0451 Physical Exam General Appearance: Well Developed, Well Nourished, No Acute Distress Throat Throat Exam: Oral Mucosa [place] & Moist Neck Neck Exam: Neck Supple Pulmonary Resp Exam: Clear Bilaterally, Decreased Bases Cardiology CV Exam: Regular, Normal Sinus Rhythm Gastrointestinal/Abdomen GI Exam: Soft, Non-Tender, Bowel Sounds Present Musculoskeletal MS Exam: Joints Intact Integumentary Skin Exam: Warm, Dry, Intact Extremeties Extremities Exam: Trace Edema Neurologic Neuro Exam: Alert, Awake, Oriented, Speech Clear Psychiatric Psych Exam: Appropriate Responses Assessment/Plan Problem List: (1) CKD (chronic kidney disease) ICD Codes: N18.9 - Chronic kidney disease, unspecified Plan: Creatinine at 1.56 -> 1.47 today. He has some acute kidney injury on admission with a creatinine of 1.7, but it has improved now to likely baseline level He has a single kidney with a GFR of around 46-51. Given 1L IVFs yesterday for ongoing orthostatic hypotension. Off IVFs now K+ ordered for hypokalemia. 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 Most likely this is related to autonomic neuropathy. Continue to follow with cardiology - on midodrine as well as Florinef, in addition to anti-hypertensives. Florinf may be increased in increments of 0.1 mg per week; maximum dose: 1 mg daily. Risk of HTN/ hypokalemia after 0.3mg/day. Will add PO salt tablets as well. Sunny Schwartz MD Feb 11, 2018 14:30
[2018-02-11] MEDS: SODIUM CHLORIDE 1 GRAM TAB PO SCH (14:57)
[2018-02-11] MEDS: ONDANSETRON ODT 4 MG TAB PO PRN (14:57)
--- NOTE | 2018-02-11 15:10 | HHI.PR ---
Subjective Remarks Follow up on patient with orthostatic hypotension. Patient seen and examined. He complains of headache today similar to his chronic migraines. States his left ear discomfort is better. He reports some left sided throat irritation but denies any pain or difficulty with swallowing. He denies any chest pain or dyspnea. He had some nausea yesterday but this has resolved. He was able to tolerate breakfast without any difficulties although his daughter who is at the bedside states his appetite is not very good. Objective Vitals Vital Signs Date Time Temp Pulse Resp B/P (MAP) Pulse Ox O2 Delivery O2 Flow Rate FiO2 02/11/18 11:54 97.9 57 22 204/102 (136) 97 162/77 (105) 75/95 (88) 62/58 (59) 02/11/18 08:00 98.6 62 21 188/111 (136) 94 02/11/18 04:00 57 02/11/18 04:00 98.1 60 20 151/90 (110) 94 02/11/18 02:00 58 02/11/18 00:00 60 02/10/18 22:24 97.9 56 22 217/97 (137) 99 02/10/18 21:10 98.1 47 18 225/102 (143) 95 204/111 (142) 02/10/18 19:55 97 02/10/18 16:59 57 02/10/18 15:11 141/85 (103) I/O 02/10/18 02/10/18 02/10/18 02/11/18 02/11/18 02/11/18 06:59 14:59 22:59 06:59 14:59 22:59 Intake Total 220 ml 500 ml 240 ml Output Total 400 ml 110 ml 225 ml 200 ml Balance -180 ml -110 ml 275 ml 40 ml Intake Oral 220 ml 500 ml 240 ml Output Urine Total 400 ml 110 ml 225 ml 200 ml # Voids 95 # Bowel Movements 2 1 Result Diagram: 02/07/18 0441 02/11/18 0451 Imaging Last Impressions Renal Ultrasound 02/08/18 0000 Signed Impressions: CONCLUSION: 1. Prior right nephrectomy. 2. Left kidney with sonographic findings suggesting underlying medical renal d isease. No obstruction. Head CT 02/06/18 1227 Signed Impressions: CONCLUSION: 1. Stable CT scan of the brain compared to 2015. 2. No acute intracranial hemorrhage. Head Magnetic Resonance Angiography 02/06/18 Signed Impressions: CONCLUSION: 1. Hypoplastic right A1 segment. 2. Otherwise, unremarkable MRA examination of the brain. Chest X-Ray 02/06/18 Signed Impressions: CONCLUSION: Under inflation with atelectasis at the lung bases. Otherwise, no acute finding is appreciated. Carotid Artery Ultrasound 02/06/18 Signed Impressions: CONCLUSION: 1. Right Internal Carotid Artery: Mild atherosclerotic disease 2. Left Internal Carotid Artery: Mild atherosclerotic disease Brain MRI 02/06/18 Signed Impressions: CONCLUSION: 1. [id number] periventricular small vessel ischemic white matter denomin ation. 2. Otherwise, unremarkable MRI examination of the brain. Objective Remarks GENERAL: This is a well-nourished, well-developed elderly male patient, in no apparent distress. Awake and alert. Sitting up in bed. Daughter is at the bedside. SKIN: Warm and dry. Superficial abrasions noted on bilateral knees. HEAD: Atraumatic. Normocephalic. 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 Extraocular motions intact. No scleral icterus. No injection or drainage. ENT: Nose without bleeding or purulent drainage. Airway patent. MMM. Left ear canal + cerumen impaction, unable to visualize tympanic membrane. NECK: Trachea midline. CARDIOVASCULAR: Regular rate and rhythm without murmurs, gallops, or rubs. RESPIRATORY: Nonlabored. Clear to auscultation. Breath sounds equal bilaterally. No wheezes, rales, or rhonchi. GASTROINTESTINAL: Abdomen soft, non-tender, nondistended. No guarding. MUSCULOSKELETAL: Extremities without clubbing, cyanosis, or edema. No calf tenderness. NEUROLOGICAL: Awake and alert. Cranial nerves II through XII grossly intact. Motor and sensory grossly within normal limits. Nonfocal. Normal speech. PSYCHIATRIC: Calm and cooperative. Procedures None A/P Problem List: (1) Renal insufficiency ICD Code: N28.9 - Disorder of kidney and ureter, unspecified (2) Renal cell carcinoma ICD Code: C64.9 - Malignant neoplasm of unspecified kidney, except renal pelvis (3) Orthostasis ICD Code: I95.1 - Orthostatic hypotension Status: Acute (4) Vertigo ICD Code: R42 - Dizziness and giddiness Status: Acute (5) Generalized weakness ICD Code: R53.1 - Weakness Status: Acute (6) Paroxysmal atrial fibrillation ICD Code: I48.0 - Paroxysmal atrial fibrillation Status: Acute (7) Hypertensive heart disease ICD Code: I11.9 - Hypertensive heart disease without heart failure Status: Acute (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 Syncopal/near syncopal episodes, dizziness, recurrent falls - suspect secondary to orthostatic hypotension CT the head stable MRI the brain unremarkable except for mild to moderate small vessel ischemic changes Carotid ultrasound shows mild atherosclerotic disease MRA head shows hypoplastic right A1 segment otherwise unremarkable Trops negative x 3 Echo reveals EF 55-60% -Neurology following, appreciate assistance -neuro checks -continue on cardiac telemetry -Fall precautions Orthostatic hypotension in patient with known HTN, secondary to autonomic dysfunction Patient's blood pressure drops from 195/106 supine to 79/52 with standing Patient unable to participate with PT as he became unresponsive upon standing Carotid massage is contraindicated -Discussed with patient slow transitions. Apply SAI hose prior to getting up out of bed in the morning. -Continue fall precautions -Evaluated by cardiology, appreciate recommendations. Discussed with Dr. Bush. Patient started on metoprolol XL 25 mg daily. Lisinopril increased to 10 mg twice daily. Avoid Clonidine. Given IVF hydration. May benefit from addition of low-dose Midodrine in combo with antihypertensive if he doesn't respond to present treatment. Caution use of Midodrine given elevated BPs while supine. 02/10 Toprol increased to 50 mg and low-dose midodrine 2.5 mg daily added. BP standing better today at 91/54 but supine was 199/99. Recheck orthostatics at 2 :00 today. Also, Florinef added by nephrology. 02/11 Given additional 1L IVF. Toprol XL dose decreased to 25mg secondary to bradycardia. Midodrine dose increased to 5mg BID. SBP 204 supine, 62 standing. Also salt tablets started 1gm daily. Continue with PT. KARIME on CKD, suspect secondary to dehydration/poor oral intake History of RCC s/p right nephrectomy Creatinine 1.77, creatinine improved pending IVF hydration but now trending up PVRs below 200 -Nephrology following, appreciate assistance. Renin and aldosterone levels pending. -continue to monitor I&Os -Ultrasound shows underlying medical renal disease left kidney, no obstruction -Avoid nephrotoxic agents -Continue to monitor kidney function Hypertension -continue on Toprol XL and Lisinopril 10mg BID with parameters per Cardiology -Continue to monitor BP Hypokalemia -po repletion ordered -repeat BMP in am to monitor response Chronic migraines -Fioricet prn Dyslipidemia -Continue patient on statin therapy Cerumen impaction left ear -continue Debrox drops DVT prophylaxis -Lovenox sq Discharge Planning Not ready for discharge. Discharge pending clinical improvement, neurology and cardiology clearance. CM to assist with discharge planning. Karla Nash Feb 11, 2018 15:10
[2018-02-11] MEDS: ENOXAPARIN SODIUM 40 MG/0.4 ML SYRINGE SQ SCH (15:22)
[2018-02-11] MEDS: METOCLOPRAMIDE HCL 10 MG/2 ML VIAL IV PUSH PRN (15:23)
[2018-02-11] MEDS: METOPROLOL SUCCINATE 25 MG EXTENDED RELEASE TAB PO SCH (21:33)
[2018-02-11] MEDS: ATORVASTATIN 10 MG TAB PO SCH (21:33)
[2018-02-12] VITALS (13 sets, daily range): BP systolic 128–200; BP diastolic 75–105; PULSE 51–62; RESP 18–28; TEMP 97.4–98.5; O2SAT 94–100
[2018-02-12] MEDS: ONDANSETRON ODT 4 MG TAB PO PRN (02:41)
[2018-02-12 03:02] LABS: INTERNATIONAL NORMALIZED RATIO 1.1 RATIO; PROTHROMBIN TIME - PATIENT 10.8 SEC (9.8-11.6)
[2018-02-12 03:22] LABS: BICARBONATE 27.1 MEQ/L (21.0-32.0); CALCIUM 8.9 MG/DL (8.5-10.1); CREATININE 1.43 MG/DL (0.60-1.30); MAGNESIUM 2.2 MG/DL (1.5-2.5)
[2018-02-12] MEDS: MIDODRINE 5 MG TAB PO SCH ×2 (06:26→14:05)
[2018-02-12] MEDS: METOCLOPRAMIDE HCL 10 MG/2 ML VIAL IV PUSH PRN (07:28)
[2018-02-12] MEDS: CARBAMIDE PEROXIDE 6.5% OTIC SOLN 15 ML BTL LEFT EAR SCH ×2 (08:37→22:18)
[2018-02-12] MEDS: SODIUM CHLORIDE 0.9% FLUSH 10 ML FLUSH IV FLUSH SCH ×2 (08:37→22:18)
[2018-02-12] MEDS: FLUDROCORTISONE ACETATE 0.1 MG TAB PO SCH (08:38)
[2018-02-12] MEDS: ASPIRIN 81 MG CHEW TAB PO SCH (08:38)
[2018-02-12] MEDS: SENNOSIDES 8.6 MG TAB PO SCH ×2 (08:38→20:51)
[2018-02-12] MEDS: LISINOPRIL 20 MG TAB PO SCH ×2 (08:38→20:52)
[2018-02-12] MEDS: DOCUSATE SODIUM 50 MG/SENNA 8.6 MG TAB PO SCH ×2 (08:38→20:51)
[2018-02-12] MEDS: ALLOPURINOL 100 MG TAB PO SCH ×2 (09:28→22:15)
[2018-02-12] MEDS: SODIUM CHLORIDE 1 GRAM TAB PO SCH (09:28)
[2018-02-12] MEDS: hydrALAZINE HCL 25 MG TAB PO PRN ×2 (09:28→18:20)
--- NOTE | 2018-02-12 13:16 | HHI.PR ---
Subjective Remarks Follow up on patient with orthostatic hypotension. Patient seen and examined. Patient states he feels like he had a turning point today. He reports he is able to get up twice to go to the bathroom without any episodes of dizziness/ unsteadiness. He denies any new medical complaints. Denies any headache this morning. Denies any chest pain or shortness of breath. Denies any nausea, vomiting or abdominal pain. Discussed with patient possibility of rehab prior to going home patient states he is not interested at this time. Objective Vitals Vital Signs Date Time Temp Pulse Resp B/P (MAP) Pulse Ox O2 Delivery O2 Flow Rate FiO2 02/12/18 11:40 135/90 (105) 02/12/18 11:35 128/79 (95) 02/12/18 11:33 97.4 52 28 193/95 (127) 95 02/12/18 09:33 56 18 183/92 (122) 100 02/12/18 08:00 98.5 53 25 200/105 (136) 95 02/12/18 06:29 170/98 (122) 02/12/18 04:00 98.5 62 19 175/83 (113) 97 02/12/18 01:03 178/96 (123) 02/12/18 00:04 98.1 57 18 197/94 (128) 94 02/11/18 21:30 188/100 (129) 02/11/18 20:00 98.3 53 22 195/95 (128) 100 131/84 (100) 97/65 (76) 02/11/18 16:00 98.1 70 19 137/77 (97) 99 I/O 02/11/18 02/11/18 02/11/18 02/12/18 02/12/18 02/12/18 07:00 15:00 23:00 07:00 15:00 23:00 Intake Total 240 ml 360 ml 240 ml Output Total 200 ml 600 ml 400 ml Balance 40 ml -240 ml -160 ml Intake Oral 240 ml 360 ml 240 ml Output Urine Total 200 ml 600 ml 400 ml # Bowel Movements 1 2 2 Result Diagram: 02/12/18 0229 Imaging Last Impressions Renal Ultrasound 02/08/18 0000 Signed Impressions: CONCLUSION: 1. Prior right nephrectomy. 2. Left kidney with sonographic findings suggesting underlying medical renal d isease. No obstruction. Head CT 02/06/18 1227 Signed Impressions: CONCLUSION: 1. Stable CT scan of the brain compared to 2015. 2. No acute intracranial hemorrhage. Head Magnetic Resonance Angiography 02/06/18 Signed Impressions: CONCLUSION: 1. Hypoplastic right A1 segment. 2. Otherwise, unremarkable MRA examination of the brain. Chest X-Ray 02/06/18 Signed Impressions: CONCLUSION: Under inflation with atelectasis at the lung bases. Otherwise, no acute finding is appreciated. Carotid Artery Ultrasound 02/06/18 Signed Impressions: CONCLUSION: 1. Right Internal Carotid Artery: Mild atherosclerotic disease 2. Left Internal Carotid Artery: Mild atherosclerotic disease Brain MRI 02/06/18 Signed Impressions: CONCLUSION: 1. [id number] periventricular small vessel ischemic white matter denomin ation. 2. Otherwise, unremarkable MRI examination of the brain. Objective Remarks GENERAL: This is a well-nourished, well-developed elderly male patient, in no apparent distress. Awake and alert. Sitting up in bed. SKIN: Warm and dry. Superficial abrasions noted on bilateral knees. HEAD: Atraumatic. Normocephalic. 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 Extraocular motions intact. No scleral icterus. No injection or drainage. ENT: Nose without bleeding or purulent drainage. Airway patent. MMM. Left ear canal + cerumen impaction, unable to visualize tympanic membrane. NECK: Trachea midline. CARDIOVASCULAR: Regular rate and rhythm without murmurs, gallops, or rubs. RESPIRATORY: Nonlabored. Clear to auscultation. Breath sounds equal bilaterally. No wheezes, rales, or rhonchi. GASTROINTESTINAL: Abdomen soft, non-tender, nondistended. No guarding. MUSCULOSKELETAL: Extremities without clubbing, cyanosis, or edema. No calf tenderness. NEUROLOGICAL: Awake and alert. Cranial nerves II through XII grossly intact. Motor and sensory grossly within normal limits. Nonfocal. Normal speech. PSYCHIATRIC: Calm and cooperative. Procedures None A/P Problem List: (1) Renal insufficiency ICD Code: N28.9 - Disorder of kidney and ureter, unspecified (2) Renal cell carcinoma ICD Code: C64.9 - Malignant neoplasm of unspecified kidney, except renal pelvis (3) Orthostasis ICD Code: I95.1 - Orthostatic hypotension Status: Acute (4) Vertigo ICD Code: R42 - Dizziness and giddiness Status: Acute (5) Generalized weakness ICD Code: R53.1 - Weakness Status: Acute (6) Paroxysmal atrial fibrillation ICD Code: I48.0 - Paroxysmal atrial fibrillation Status: Acute (7) Hypertensive heart disease ICD Code: I11.9 - Hypertensive heart disease without heart failure Status: Acute (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 Syncopal/near syncopal episodes, dizziness, recurrent falls - suspect secondary to orthostatic hypotension CT the head stable MRI the brain unremarkable except for mild to moderate small vessel ischemic changes Carotid ultrasound shows mild atherosclerotic disease MRA head shows hypoplastic right A1 segment otherwise unremarkable Trops negative x 3 Echo reveals EF 55-60% -Neurology following, appreciate assistance -neuro checks -continue on cardiac telemetry -Fall precautions Orthostatic hypotension in patient with known HTN, secondary to autonomic dysfunction Patient's blood pressure drops from 195/106 supine to 79/52 with standing Patient unable to participate with PT as he became unresponsive upon standing Carotid massage is contraindicated -Discussed with patient slow transitions. Apply SAI hose prior to getting up out of bed in the morning. -Continue fall precautions -Evaluated by cardiology, appreciate recommendations. Discussed with Dr. Bush. Patient started on metoprolol XL 25 mg daily. Lisinopril increased to 10 mg twice daily. Avoid Clonidine. Given IVF hydration. May benefit from addition of low-dose Midodrine in combo with antihypertensive if he doesn't respond to present treatment. Caution use of Midodrine given elevated BPs while supine. 02/10 Toprol increased to 50 mg and low-dose midodrine 2.5 mg daily added. BP standing better today at 91/54 but supine was 199/99. Recheck orthostatics at 2 :00 today. Also, Florinef added by nephrology. 02/11 Given additional 1L IVF. Toprol XL dose decreased to 25mg secondary to bradycardia. Midodrine dose increased to 5mg BID. SBP 204 supine, 62 standing. Also salt tablets started 1gm daily. Continue with PT. 02/12 standing blood pressure much improved today, 128/79 however supine SBP 200s KARIME on CKD, suspect secondary to dehydration/poor oral intake History of RCC s/p right nephrectomy Creatinine 1.77, creatinine improved pending IVF hydration PVRs below 200 -Nephrology following, appreciate assistance. Likely has new elevated baseline. Renin and aldosterone levels pending. -continue to monitor I&Os -Ultrasound shows underlying medical renal disease left kidney, no obstruction -Avoid nephrotoxic agents -Continue to monitor kidney function Hypertension -continue on Toprol XL and Lisinopril 10mg BID with parameters per Cardiology -Continue to monitor BP Hypokalemia -Resolved status post repletion Chronic migraines -Fioricet prn Dyslipidemia -Continue patient on statin therapy Cerumen impaction left ear -continue Debrox drops DVT prophylaxis -Lovenox sq Discharge Planning Not ready for discharge. Discharge pending clinical improvement, neurology and cardiology clearance. CM to assist with discharge planning. Karla Nash Feb 12, 2018 13:16
--- NOTE | 2018-02-12 16:52 | HHI.FF ---
Face to Face Verification Diagnosis: (1) At high risk for falls (2) Orthostatic hypotension dysautonomic syndrome (3) Dizziness (4) Hypertensive heart disease (5) Orthostasis Physical Therapy Order: Evaluate and Treat, Improve ambulation, Strength and gait training Occupational Therapy Order: Evaluate and Treat, Improve ADL, Gross motor coordination, Fine motor coordination I have seen patient Shady Malhotra on 02/12/18. My clinical findings support the need for the requested home health care services because: Ltd mobility - disease progression Deconditioned w/ increased weakness Limited ability to care for self High risk of falls I certify that my clinical findings support that this patient is homebound because: Unsteady gait/balance Unsafe to leave home unassisted Unable to use public transportation Karla Nash Feb 12, 2018 16:52
[2018-02-12] MEDS ORDERED: BEDSIDE COMMODE1 MI1 (16:54)
--- NOTE | 2018-02-12 17:05 | HHI.NPPN ---
Subjective Additional Remarks Ongoing orthostatic hypotension, Reports feeling very depressed. (Radha Hernandez) Objective Data Data Vital Signs Date Time Temp Pulse Resp B/P (MAP) Pulse Ox O2 Delivery O2 Flow Rate FiO2 02/12/18 16:00 97.9 54 18 200/98 (132) 98 02/12/18 11:40 135/90 (105) 02/12/18 11:35 128/79 (95) 02/12/18 11:33 97.4 52 28 193/95 (127) 95 02/12/18 09:33 56 18 183/92 (122) 100 02/12/18 08:00 98.5 53 25 200/105 (136) 95 02/12/18 06:29 170/98 (122) 02/12/18 04:00 98.5 62 19 175/83 (113) 97 02/12/18 01:03 178/96 (123) 02/12/18 00:04 98.1 57 18 197/94 (128) 94 02/11/18 21:30 188/100 (129) 02/11/18 20:00 98.3 53 22 195/95 (128) 100 131/84 (100) 97/65 (76) (Radha Hernandez) -: 02/12/18 0229 Imaging Last Impressions Renal Ultrasound 02/08/18 0000 Signed Impressions: CONCLUSION: 1. Prior right nephrectomy. 2. Left kidney with sonographic findings suggesting underlying medical renal d isease. No obstruction. Head CT 02/06/18 1227 Signed Impressions: CONCLUSION: 1. Stable CT scan of the brain compared to 2014. 2. No acute intracranial hemorrhage. Head Magnetic Resonance Angiography 02/06/18 0000 Signed Impressions: CONCLUSION: 1. Hypoplastic right A1 segment. 2. Otherwise, unremarkable MRA examination of the brain. Chest X-Ray 02/06/18 0000 Signed Impressions: CONCLUSION: Under inflation with atelectasis at the lung bases. Otherwise, no acute finding is appreciated. Carotid Artery Ultrasound 02/06/18 0000 Signed Impressions: CONCLUSION: 1. Right Internal Carotid Artery: Mild atherosclerotic disease 2. Left Internal Carotid Artery: Mild atherosclerotic disease Brain MRI 02/06/18 0000 Signed Impressions: CONCLUSION: 1. Dhif-mu-morflxef periventricular small vessel ischemic white matter denomin ation. 2. Otherwise, unremarkable MRI examination of the brain. (Radha Hernandez) Physical Exam General Appearance: Well Developed, Well Nourished, No Acute Distress (Radha Hernandez) Throat Throat Exam: Oral Mucosa [place] & Moist (Radha Hernandez) Neck Neck Exam: Neck Supple (Radha Hernandez) Pulmonary Resp Exam: Clear Bilaterally, Decreased Bases (Radha Hernandez) Cardiology CV Exam: Regular, Normal Sinus Rhythm (Radha Hernandez) Gastrointestinal/Abdomen GI Exam: Soft, Non-Tender, Bowel Sounds Present (Radha Hernandez) Musculoskeletal MS Exam: Joints Intact (Radha Hernandez) Integumentary Skin Exam: Warm, Dry, Intact (Radha Hernandez) Extremeties Extremities Exam: Trace Edema (Radha Hernandez) Neurologic Neuro Exam: Alert, Awake, Oriented, Speech Clear (Radha Hernandze) Psychiatric Psych Exam: Appropriate Responses (Radha Hernandez) Assessment/Plan Problem List: (1) CKD (chronic kidney disease) ICD Codes: N18.9 - Chronic kidney disease, unspecified Plan: Creatinine at 1.56 -> 1.47 ->1.43 He has some acute kidney injury on admission with a creatinine of 1.7, but it has improved now to likely baseline level He has a single kidney with a GFR of around 46-51. 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 Most likely this is related to autonomic neuropathy. Continue to follow with cardiology - on midodrine as well as Florinef, in addition to anti-hypertensives. Florinf may be increased in increments of 0.1 mg per week; maximum dose: 1 mg daily. Risk of HTN/ hypokalemia after 0.3mg/day. Continue sodium chloride Will monitor (Radha Hernandez) Problem List: (1) CKD (chronic kidney disease) ICD Codes: N18.9 - Chronic kidney disease, unspecified Plan: Creatinine at 1.56 -> 1.47 ->1.43 He has some acute kidney injury on admission with a creatinine of 1.7, but it has improved now to likely baseline level He has a single kidney with a GFR of around 46-51. Continue to encourage PO intake Avoid nephrotoxins. Patient seen and examined, agree with above. Creatinine is better, possibly close to his baseline. 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 Most likely this is related to autonomic neuropathy. Continue to follow with cardiology - on midodrine as well as Florinef, in addition to anti-hypertensives. Florinf may be increased in increments of 0.1 mg per week; maximum dose: 1 mg daily. Risk of HTN/ hypokalemia after 0.3mg/day. Continue sodium chloride Will monitor. On Midodrine and Florinef. (Faheem Trujillo MD) Radha Hernandez Feb 12, 2018 17:05 Faheem Trujillo MD Feb 12, 2018 22:39
[2018-02-12] MEDS: ENOXAPARIN SODIUM 40 MG/0.4 ML SYRINGE SQ SCH (17:32)
[2018-02-12] MEDS: ATORVASTATIN 10 MG TAB PO SCH (20:51)
[2018-02-12] MEDS: METOPROLOL SUCCINATE 25 MG EXTENDED RELEASE TAB PO SCH (20:51)
[2018-02-12] MEDS: amLODIPine BESYLATE 5 MG TAB PO SCH (22:14)
[2018-02-13] VITALS (7 sets, daily range): BP systolic 78–193; BP diastolic 50–104; PULSE 55–70; RESP 12–21; TEMP 97.9–98.8; O2SAT 95–96
[2018-02-13] MEDS: hydrALAZINE HCL 25 MG TAB PO PRN (00:54)
[2018-02-13] MEDS: METOCLOPRAMIDE HCL 10 MG/2 ML VIAL IV PUSH PRN (06:15)
[2018-02-13] MEDS: MIDODRINE 5 MG TAB PO SCH ×2 (06:27→14:11)
[2018-02-13 07:07] LABS: INTERNATIONAL NORMALIZED RATIO 1.1 RATIO; PROTHROMBIN TIME - PATIENT 10.7 SEC (9.8-11.6)
[2018-02-13 07:16] LABS: BICARBONATE 26.1 MEQ/L (21.0-32.0); CALCIUM 8.9 MG/DL (8.5-10.1); CREATININE 1.35 MG/DL (0.60-1.30)
[2018-02-13] MEDS ORDERED: POTASSIUM CHLORIDE 20 MEQ CONTROLLED RELEASE TAB PO ONE (08:00)
--- NOTE | 2018-02-13 08:00 | PD.CARD.PN ---
Subjective Subjective Remarks No major complaints but still very lightheaded and weak when standing. Denies CP or SOB. Objective Medications Current Medications Medications (Trade) Dose Ordered Sig/Brad Route Start Time Stop Time Status Last Admin (NS Flush) 2 ml BID IV FLUSH 02/06/18 21:00 02/12/18 22:18 (NS Flush) 2 ml UNSCH PRN IV FLUSH 02/06/18 16:45 (Aspirin Chew) 81 mg DAILY PO 02/06/18 16:45 02/12/18 08:38 (Lipitor) 10 mg HS PO 02/06/18 21:00 02/12/18 20:51 (Lovenox Inj) 40 mg Q24H SQ 02/06/18 17:00 02/12/18 17:32 (Tylenol) 650 mg Q4H PRN PO 02/06/18 16:45 (Zofran Odt) 4 mg Q6H PRN PO 02/06/18 16:45 02/12/18 02:41 (Reglan Inj) 5 mg Q6H PRN IV PUSH 02/06/18 16:45 02/13/18 06:15 (Tylenol) 650 mg Q6H PRN PO 02/06/18 16:45 (Morphine Inj) 2 mg Q3H PRN IV PUSH 02/06/18 16:45 (Morphine Inj) 4 mg Q3H PRN IV PUSH 02/06/18 16:45 (Morphine Inj) 4 mg Q3H PRN IV PUSH 02/06/18 16:45 (Narcan Inj) 0.4 mg UNSCH PRN IV PUSH 02/06/18 16:45 (Guillermina-Colace) 1 tab BID PO 02/06/18 21:00 02/12/18 20:51 (Milk Of Magnesia Liq) 30 ml Q12H PRN PO 02/06/18 16:45 02/11/18 12:39 (Senokot) 17.2 mg Q12H PRN PO 02/06/18 16:45 (Dulcolax Supp) 10 mg DAILY PRN RECTAL 02/06/18 16:45 (Lactulose Liq) 30 ml DAILY PRN PO 02/06/18 16:45 02/11/18 12:39 (Antivert) 25 mg Q8H PO 02/06/18 17:00 Future Hold 02/09/18 02:12 (Zyloprim) 100 mg BID PO 02/06/18 21:00 02/12/18 22:15 ([place] 7.5-325 Mg) 1 tab Q8HR PRN PO 02/06/18 18:45 02/09/18 12:49 (Tofranil) 50 mg HS PO 02/06/18 21:00 Future Hold 02/06/18 22:47 ([place] 5-325 Mg) 1 tab Q6H PRN PO 02/06/18 19:00 (Florinef) 0.1 mg DAILY PO 02/10/18 09:00 02/12/18 08:38 (Debrox 6.5% Otic) 5 drop Q12HR LEFT EAR 02/10/18 10:30 02/12/18 22:18 (Fioricet 325-50-40) 1 tab Q8H PRN PO 02/10/18 10:30 02/12/18 18:20 (Senokot) 8.6 mg BID PO 02/10/18 21:00 02/12/18 20:51 (Pill Splitter) 1 ea UNSCH PRN OTHER 02/10/18 16:00 (Proamatine) 5 mg BID@0700,1300 PO 02/11/18 07:00 02/13/18 06:27 (Toprol Xl) 25 mg HS PO 02/11/18 21:00 02/12/18 20:51 (Sodium Chloride) 1 gm DAILY PO 02/11/18 14:30 02/12/18 09:28 (Norvasc) 2.5 mg DAILY@1000,2200 PO 02/12/18 22:00 02/12/18 22:14 (Prinivil) 10 mg BID PO 02/13/18 09:00 UNV Vital Signs / I&O Orthostatic BP checked by me today with manual cuff: Supine 190/90 Sittin/72 Standin/50 (symptomatic) Vital Signs Date Time Temp Pulse Resp B/P (MAP) Pulse Ox O2 Delivery O2 Flow Rate FiO2 02/13/18 04:00 98.8 56 12 177/88 (117) 96 02/13/18 00:53 56 173/97 (122) 02/13/18 00:00 98.4 55 20 175/96 (122) 95 02/12/18 22:11 51 183/95 (124) 02/12/18 20:48 61 130/83 (99) 02/12/18 20:00 98.5 60 24 136/75 (95) 95 02/12/18 19:20 18 02/12/18 16:00 97.9 54 18 200/98 (132) 98 02/12/18 11:40 135/90 (105) 02/12/18 11:35 128/79 (95) 02/12/18 11:33 97.4 52 28 193/95 (127) 95 02/12/18 09:33 56 18 183/92 (122) 100 02/12/18 08:00 98.5 53 25 200/105 (136) 95 I/O 02/12/18 02/12/18 02/12/18 02/13/18 02/13/18 02/13/18 07:00 15:00 23:00 07:00 15:00 23:00 Intake Total 240 ml 1200 ml 720 ml Output Total 400 ml 1500 ml Balance -160 ml -300 ml 720 ml Intake Oral 240 ml 1200 ml 720 ml Output Urine Total 400 ml 1500 ml # Voids 4 # Bowel Movements 2 3 Physical Exam BP as noted above. Significant orthostatic changes persist. No JVD Lungs: CTA Heart: RRR, S4, no murmur. Ext: No C/C/E Neuro: Non-focal. Laboratory Laboratory Tests Test 02/13/18 05:39 Prothrombin Time 10.7 SEC Prothromb Time International Ratio 1.1 RATIO Blood Urea Nitrogen 30 MG/DL Creatinine 1.35 MG/DL Random Glucose 103 MG/DL Calcium Level 8.9 MG/DL Sodium Level 139 MEQ/L Potassium Level 3.5 MEQ/L Chloride Level 103 MEQ/L Carbon Dioxide Level 26.1 MEQ/L Anion Gap 10 MEQ/L Estimat Glomerular Filtration Rate 51 ML/MIN Assessment and Plan Problem List: (1) Orthostatic hypotension dysautonomic syndrome ICD Codes: G90.3 - Multi-system degeneration of the autonomic nervous system (2) Hypokalemia ICD Codes: E87.6 - Hypokalemia Status: Acute (3) Generalized weakness ICD Codes: R53.1 - Weakness Status: Acute Assessment and Plan Thigh high SAI hose on AM off HS. Add fluoxetine 10 mg po daily. Leave off tofranil. Decrease Lisinopril 10 mg po BID. Continue fludro and midodrine. Can continue to monitor orthostatic BP but would adjust meds from sitting and standing pressures only to avoid symptoms. Will need to accept high supine pressures. I doubt we will be able to get good supine control without significant hypotension upon standing. Replace K. See orders. Increase activity with assistance. Continue PT. Following. Discussed Condition With Patient and nursing staff. Vamshi Ny MD Feb 13, 2018 08:00
[2018-02-13] MEDS: SENNOSIDES 8.6 MG TAB PO SCH ×2 (10:22→21:32)
[2018-02-13] MEDS: ALLOPURINOL 100 MG TAB PO SCH ×2 (10:22→21:36)
[2018-02-13] MEDS: LISINOPRIL 20 MG TAB PO SCH ×2 (10:22→21:36)
[2018-02-13] MEDS: SODIUM CHLORIDE 1 GRAM TAB PO SCH (10:22)
[2018-02-13] MEDS: FLUDROCORTISONE ACETATE 0.1 MG TAB PO SCH (10:23)
[2018-02-13] MEDS: ASPIRIN 81 MG CHEW TAB PO SCH (10:23)
[2018-02-13] MEDS: SODIUM CHLORIDE 0.9% FLUSH 10 ML FLUSH IV FLUSH SCH ×2 (10:23→21:37)
[2018-02-13] MEDS: DOCUSATE SODIUM 50 MG/SENNA 8.6 MG TAB PO SCH ×2 (10:23→21:00)
[2018-02-13] MEDS: amLODIPine BESYLATE 5 MG TAB PO SCH ×2 (10:43→21:40)
[2018-02-13] MEDS: FLUoxetine HCL 10 MG CAP PO SCH (10:43)
[2018-02-13] MEDS: CARBAMIDE PEROXIDE 6.5% OTIC SOLN 15 ML BTL LEFT EAR SCH ×2 (10:45→21:38)
--- NOTE | 2018-02-13 16:31 | HHI.NPPN ---
Subjective Renal Failure: Acute Additional Remarks Ongoing orthostatic hypotension. Creatinine improving at 1.35 today. (Radha Hernandez) Review of Systems Respiratory Respiratory Remarks Denies SOB (Radha Hernandez) Cardiovascular Cardiac Remarks Denies chest pain (Radha Hernandez) Objective Data Data Vital Signs Date Time Temp Pulse Resp B/P (MAP) Pulse Ox O2 Delivery O2 Flow Rate FiO2 02/13/18 12:00 97.9 61 21 153/93 (113) 96 02/13/18 10:00 69 150/80 (103) 02/13/18 08:00 97.9 70 18 193/104 (133) 96 190/90 (123) 122/78 (93) 78/50 (59) 02/13/18 04:00 98.8 56 12 177/88 (117) 96 02/13/18 00:53 56 173/97 (122) 02/13/18 00:00 98.4 55 20 175/96 (122) 95 02/12/18 22:11 51 183/95 (124) 02/12/18 20:48 61 130/83 (99) 02/12/18 20:00 98.5 60 24 136/75 (95) 95 02/12/18 19:20 18 (Radha Hernandez) -: 02/13/18 0539 Imaging Last Impressions Renal Ultrasound 02/08/18 0000 Signed Impressions: CONCLUSION: 1. Prior right nephrectomy. 2. Left kidney with sonographic findings suggesting underlying medical renal d isease. No obstruction. Head CT 02/06/18 1227 Signed Impressions: CONCLUSION: 1. Stable CT scan of the brain compared to 2015. 2. No acute intracranial hemorrhage. Head Magnetic Resonance Angiography 02/06/18 0000 Signed Impressions: CONCLUSION: 1. Hypoplastic right A1 segment. 2. Otherwise, unremarkable MRA examination of the brain. Chest X-Ray 02/06/18 0000 Signed Impressions: CONCLUSION: Under inflation with atelectasis at the lung bases. Otherwise, no acute finding is appreciated. Carotid Artery Ultrasound 02/06/18 0000 Signed Impressions: CONCLUSION: 1. Right Internal Carotid Artery: Mild atherosclerotic disease 2. Left Internal Carotid Artery: Mild atherosclerotic disease Brain MRI 02/06/18 0000 Signed Impressions: CONCLUSION: 1. Lwwa-ua-ecccpvak periventricular small vessel ischemic white matter denomin ation. 2. Otherwise, unremarkable MRI examination of the brain. (Radha Hernandez) Physical Exam General Appearance: Well Developed, Well Nourished, No Acute Distress (Radha Hernandez) Throat Throat Exam: Oral Mucosa [place] & Moist (Radha Hernandez) Neck Neck Exam: Neck Supple (Radha Hernandez) Pulmonary Resp Exam: Clear Bilaterally, Decreased Bases (Radha Hernandez) Cardiology CV Exam: Regular, Normal Sinus Rhythm (Radha Hernandez) Gastrointestinal/Abdomen GI Exam: Soft, Non-Tender, Bowel Sounds Present (Radha Hernandez) Musculoskeletal MS Exam: Joints Intact (Radha Hernandez) Integumentary Skin Exam: Warm, Dry, Intact (Radha Hernandez) Extremeties Extremities Exam: Trace Edema (Radha Hernandez) Neurologic Neuro Exam: Alert, Awake, Oriented, Speech Clear (Radha Hernandez) Psychiatric Psych Exam: Appropriate Responses (Radha Hernandez) Assessment/Plan Problem List: (1) CKD (chronic kidney disease) ICD Codes: N18.9 - Chronic kidney disease, unspecified Plan: Creatinine at 1.56 -> 1.47 ->1.43->1.35 He has some acute kidney injury on admission with a creatinine of 1.7, but it has improved now to likely baseline level He has a single kidney with a GFR of around 46-51. 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 Most likely this is related to autonomic neuropathy. Continue to follow with cardiology - on midodrine as well as Florinef, in addition to anti-hypertensives. Florinf may be increased in increments of 0.1 mg per week; maximum dose: 1 mg daily. Risk of HTN/ hypokalemia after 0.3mg/day. Continue sodium chloride Bharat hose Continue Midodrine and Florinef. lisinopril has been decreased need to allow permissive hypertension while supine to prevent hypotension while ambulating (Radha Hernandez) Problem List: (1) CKD (chronic kidney disease) ICD Codes: N18.9 - Chronic kidney disease, unspecified Plan: Creatinine at 1.56 -> 1.47 ->1.43->1.35 He has some acute kidney injury on admission with a creatinine of 1.7, but it has improved now to likely baseline level He has a single kidney with a GFR of around 46-51. Continue to encourage PO intake Avoid nephrotoxins. Patient seen and examined, agree with above. BP is still dropping on standing, will increase Florinef. 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 Most likely this is related to autonomic neuropathy. Continue to follow with cardiology - on midodrine as well as Florinef, in addition to anti-hypertensives. Florinf may be increased in increments of 0.1 mg per week; maximum dose: 1 mg daily. Risk of HTN/ hypokalemia after 0.3mg/day. Continue sodium chloride Bharat hose Continue Midodrine and Florinef. lisinopril has been decreased need to allow permissive hypertension while supine to prevent hypotension while ambulating (Faheem Trujillo MD) Radha Hernandez Feb 13, 2018 16:31 Faheem Trujillo MD Feb 13, 2018 21:29
--- NOTE | 2018-02-13 17:16 | HHI.PR ---
Subjective Remarks Patient says he is feeling all right. Denies any chest pain or shortness of breath. Continue to have lightheadedness and dizziness when he stands up. Says he has been very sad since his . He said he had a large breakfast, however does not feel like eating lunch. Reports poor appetite over the past several months. Objective Vital Signs Date Time Temp Pulse Resp B/P (MAP) Pulse Ox O2 Delivery O2 Flow Rate FiO2 02/13/18 12:00 97.9 61 21 153/93 (113) 96 02/13/18 10:00 69 150/80 (103) 02/13/18 08:00 97.9 70 18 193/104 (133) 96 190/90 (123) 122/78 (93) 78/50 (59) 02/13/18 04:00 98.8 56 12 177/88 (117) 96 02/13/18 00:53 56 173/97 (122) 02/13/18 00:00 98.4 55 20 175/96 (122) 95 02/12/18 22:11 51 183/95 (124) 02/12/18 20:48 61 130/83 (99) 02/12/18 20:00 98.5 60 24 136/75 (95) 95 02/12/18 19:20 18 I/O 02/12/18 02/12/18 02/12/18 02/13/18 02/13/18 02/13/18 07:00 15:00 23:00 07:00 15:00 23:00 Intake Total 240 ml 1200 ml 720 ml Output Total 400 ml 1500 ml Balance -160 ml -300 ml 720 ml Intake Oral 240 ml 1200 ml 720 ml Output Urine Total 400 ml 1500 ml # Voids 4 # Bowel Movements 2 3 Result Diagram: 02/13/18 0539 Objective Remarks GENERAL: Patient sitting up in bed. Appears comfortable. Cries when I ask about 's passing. SKIN: Warm and dry. HEAD: Normocephalic. EYES: No scleral icterus. No injection or drainage. NECK: Supple, trachea midline. No JVD. CARDIOVASCULAR: Regular rate and rhythm without murmurs, gallops, or rubs. RESPIRATORY: Breath sounds equal bilaterally. No accessory muscle use. GASTROINTESTINAL: Abdomen soft, non-tender, nondistended. MUSCULOSKELETAL: No cyanosis, or edema. BACK: Nontender without obvious deformity. No CVA tenderness. A/P Assessment and Plan 77-year-old gentleman who presented to the hospital today for evaluation of dizziness and multiple falls that has been ongoing for the past 2 weeks. //Syncopal/near syncopal episodes, dizziness, recurrent falls - suspect secondary to orthostatic hypotension CT the head stable MRI the brain unremarkable except for mild to moderate small vessel ischemic changes Carotid ultrasound shows mild atherosclerotic disease MRA head shows hypoplastic right A1 segment otherwise unremarkable Trops negative x 3 Echo reveals EF 55-60% -Neurology following, appreciate assistance -neuro checks -continue on cardiac telemetry -Fall precautions //Orthostatic hypotension in patient with known HTN, secondary to autonomic dysfunction Patient's blood pressure drops from 195/106 supine to 79/52 with standing Patient unable to participate with PT as he became unresponsive upon standing Carotid massage is contraindicated -Discussed with patient slow transitions. Apply SAI hose prior to getting up out of bed in the morning. -Continue fall precautions -Evaluated by cardiology, appreciate recommendations. Discussed with Dr. Bush. Patient started on metoprolol XL 25 mg daily. Lisinopril increased to 10 mg twice daily. Avoid Clonidine. Given IVF hydration. May benefit from addition of low-dose Midodrine in combo with antihypertensive if he doesn't respond to present treatment. Caution use of Midodrine given elevated BPs while supine. 02/10 Toprol increased to 50 mg and low-dose midodrine 2.5 mg daily added. BP standing better today at 91/54 but supine was 199/99. Recheck orthostatics at 2 :00 today. Also, Florinef added by nephrology. 02/11 Given additional 1L IVF. Toprol XL dose decreased to 25mg secondary to bradycardia. Midodrine dose increased to 5mg BID. SBP 204 supine, 62 standing. Also salt tablets started 1gm daily. Continue with PT. 02/12 standing blood pressure much improved today, 128/79 however supine SBP 200s = Cardiology has adjusted medications. Hopefully blood pressure stabilizes. B12 checked and acceptable. //KARIME on CKD, suspect secondary to dehydration/poor oral intake History of RCC s/p right nephrectomy Creatinine 1.77, creatinine improved pending IVF hydration PVRs below 200 -Nephrology following, appreciate assistance. Likely has new elevated baseline. Renin and aldosterone levels pending. -continue to monitor I&Os -Ultrasound shows underlying medical renal disease left kidney, no obstruction -Avoid nephrotoxic agents -Creatinine 1.35 improving. Continue to monitor kidney function //Hypertension -continue on Toprol XL and Lisinopril 10mg BID with parameters per Cardiology -Continue to monitor BP //Hypokalemia -Resolved status post repletion //Chronic migraines -Fioricet prn //Dyslipidemia -Continue patient on statin therapy //Cerumen impaction left ear -continue Debrox drops //DVT prophylaxis -Lovenox sq Discharge Planning Psychiatry consult pending for depression. Home with home health when cleared by cardiology. Asa Dutta MD Feb 13, 2018 17:16
[2018-02-13] MEDS: ENOXAPARIN SODIUM 40 MG/0.4 ML SYRINGE SQ SCH (18:42)
[2018-02-13] MEDS: ATORVASTATIN 10 MG TAB PO SCH (21:32)
[2018-02-13] MEDS: METOPROLOL SUCCINATE 25 MG EXTENDED RELEASE TAB PO SCH (21:32)
[2018-02-13] MEDS: ACETAMINOPHEN/HYDROcodone 325 MG/7.5 MG TAB PO PRN (21:37)
[2018-02-14] VITALS (7 sets, daily range): BP systolic 117–177; BP diastolic 73–96; PULSE 50–67; RESP 18–28; TEMP 97.8–98.4; O2SAT 96–98
[2018-02-14] MEDS: MIDODRINE 5 MG TAB PO SCH ×3 (06:04→16:53)
[2018-02-14 07:17] LABS: INTERNATIONAL NORMALIZED RATIO 1.4 RATIO
[2018-02-14 07:32] LABS: BICARBONATE 29.7 MEQ/L (21.0-32.0); CALCIUM 8.4 MG/DL (8.5-10.1); CREATININE 1.45 MG/DL (0.60-1.30)
--- NOTE | 2018-02-14 07:57 | PD.CARD.PN ---
Subjective Subjective Remarks Feeling better. No major complaints but mild lightheaded when standing. Denies CP or SOB. Objective Medications Current Medications Medications (Trade) Dose Ordered Sig/Brad Route Start Time Stop Time Status Last Admin (NS Flush) 2 ml BID IV FLUSH 02/06/18 21:00 02/13/18 21:37 (NS Flush) 2 ml UNSCH PRN IV FLUSH 02/06/18 16:45 (Aspirin Chew) 81 mg DAILY PO 02/06/18 16:45 02/13/18 10:23 (Lipitor) 10 mg HS PO 02/06/18 21:00 02/13/18 21:32 (Lovenox Inj) 40 mg Q24H SQ 02/06/18 17:00 02/13/18 18:42 (Tylenol) 650 mg Q4H PRN PO 02/06/18 16:45 (Zofran Odt) 4 mg Q6H PRN PO 02/06/18 16:45 02/12/18 02:41 (Tylenol) 650 mg Q6H PRN PO 02/06/18 16:45 (Morphine Inj) 2 mg Q3H PRN IV PUSH 02/06/18 16:45 (Morphine Inj) 4 mg Q3H PRN IV PUSH 02/06/18 16:45 (Morphine Inj) 4 mg Q3H PRN IV PUSH 02/06/18 16:45 (Narcan Inj) 0.4 mg UNSCH PRN IV PUSH 02/06/18 16:45 (Guillermina-Colace) 1 tab BID PO 02/06/18 21:00 02/13/18 10:23 (Milk Of Magnesia Liq) 30 ml Q12H PRN PO 02/06/18 16:45 02/11/18 12:39 (Senokot) 17.2 mg Q12H PRN PO 02/06/18 16:45 (Dulcolax Supp) 10 mg DAILY PRN RECTAL 02/06/18 16:45 (Lactulose Liq) 30 ml DAILY PRN PO 02/06/18 16:45 02/11/18 12:39 (Antivert) 25 mg Q8H PO 02/06/18 17:00 Future Hold 02/09/18 02:12 (Zyloprim) 100 mg BID PO 02/06/18 21:00 02/13/18 21:36 ([place] 7.5-325 Mg) 1 tab Q8HR PRN PO 02/06/18 18:45 02/13/18 21:37 ([place] 5-325 Mg) 1 tab Q6H PRN PO 02/06/18 19:00 (Florinef) 0.1 mg DAILY PO 02/10/18 09:00 02/13/18 10:23 (Debrox 6.5% Otic) 5 drop Q12HR LEFT EAR 02/10/18 10:30 02/13/18 21:38 (Fioricet 325-50-40) 1 tab Q8H PRN PO 02/10/18 10:30 02/12/18 18:20 (Senokot) 8.6 mg BID PO 02/10/18 21:00 02/13/18 21:32 (Pill Splitter) 1 ea UNSCH PRN OTHER 02/10/18 16:00 (Toprol Xl) 25 mg HS PO 02/11/18 21:00 02/13/18 21:32 (Sodium Chloride) 1 gm DAILY PO 02/11/18 14:30 02/13/18 10:22 (Norvasc) 2.5 mg DAILY@1000,2200 PO 02/12/18 22:00 02/13/18 21:40 (PROzac) 10 mg DAILY PO 02/13/18 09:00 02/13/18 10:43 (Proamatine) 2.5 mg TID@0700,1200,1800 PO 02/14/18 12:00 (Prinivil) 5 mg BID PO 02/14/18 09:00 UNV (KCl) 20 meq ONCE ONCE PO 02/14/18 08:00 02/14/18 08:01 UNV (KCl) 10 meq DAILY PO 02/15/18 09:00 UNV Vital Signs / I&O BP standing this AM with manual cuff 80/50 left arm. Minimal symptoms. Vital Signs Date Time Temp Pulse Resp B/P (MAP) Pulse Ox O2 Delivery O2 Flow Rate FiO2 02/14/18 04:00 98.1 53 18 158/95 (116) 97 02/14/18 00:00 98.4 63 20 156/73 (100) 96 02/13/18 20:00 98.2 57 20 165/91 (115) 95 Manual Cuff/Auscultation 02/13/18 12:00 97.9 61 21 153/93 (113) 96 02/13/18 10:00 69 150/80 (103) 02/13/18 08:00 97.9 70 18 193/104 (133) 96 190/90 (123) 122/78 (93) 78/50 (59) I/O 02/13/18 02/13/18 02/13/18 02/14/18 02/14/18 02/14/18 07:00 15:00 23:00 07:00 15:00 23:00 Intake Total 720 ml 720 ml 240 ml Output Total 400 ml 50 ml Balance 720 ml 320 ml 190 ml Intake Oral 720 ml 720 ml 240 ml Output Urine Total 400 ml 50 ml # Voids 4 # Bowel Movements 1 Physical Exam BP as noted above. Orthostatic changes persist. No JVD Lungs: CTA Heart: RRR, S4, no murmur. Ext: No C/C/E Neuro: Non-focal. 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 Add fluoxetine 10 mg po daily may helpif he has any reflex hypotension/syncopy. Would avoid tofranil since this may be exacerbating his orthostatic hypotension. Decrease Lisinopril 5 mg po BID. Increase Toprol XL 50 mg qHS as tolerated by HR. Continue fludro and change midodrine dose to TID, 2.5 mg 0700, 1200, 1800. Can continue to monitor orthostatic BP but would adjust meds from sitting and standing pressures only to avoid symptoms. Will need to accept high supine pressures. I doubt we will be able to get good supine control without significant hypotension upon standing. Replace K. See orders. Increase activity with assistance as tolerates. Continue PT. Discussed with [facility] plans staff officer and patient. Following. Vamshi Ny MD Feb 14, 2018 07:57
[2018-02-14] MEDS ORDERED: POTASSIUM CHLORIDE 20 MEQ CONTROLLED RELEASE TAB PO ONE (08:00)
[2018-02-14] MEDS: LISINOPRIL 5 MG TAB PO SCH ×2 (08:50→22:05)
[2018-02-14] MEDS: FLUoxetine HCL 10 MG CAP PO SCH (08:50)
[2018-02-14] MEDS: ASPIRIN 81 MG CHEW TAB PO SCH (08:50)
[2018-02-14] MEDS: SODIUM CHLORIDE 1 GRAM TAB PO SCH (08:50)
[2018-02-14] MEDS: SODIUM CHLORIDE 0.9% FLUSH 10 ML FLUSH IV FLUSH SCH ×2 (08:51→22:03)
[2018-02-14] MEDS: ALLOPURINOL 100 MG TAB PO SCH ×2 (08:51→22:05)
[2018-02-14] MEDS: FLUDROCORTISONE ACETATE 0.1 MG TAB PO SCH (08:51)
[2018-02-14] MEDS: DOCUSATE SODIUM 50 MG/SENNA 8.6 MG TAB PO SCH ×2 (08:52→21:00)
[2018-02-14] MEDS: SENNOSIDES 8.6 MG TAB PO SCH ×2 (08:52→21:00)
[2018-02-14] MEDS: CARBAMIDE PEROXIDE 6.5% OTIC SOLN 15 ML BTL LEFT EAR SCH ×2 (08:53→22:03)
--- NOTE | 2018-02-14 10:03 | HHI.NPPN ---
Subjective Renal Failure: Acute Additional Remarks Ongoing orthostatic hypotension but standing blood pressure has improved. Creatinine is stable (Radha Hernandez) Review of Systems Respiratory Respiratory Remarks Denies SOB (Radha Hernandez) Cardiovascular Cardiac Remarks Denies chest pain (Radha Hernandez) Objective Data Data Vital Signs Date Time Temp Pulse Resp B/P (MAP) Pulse Ox O2 Delivery O2 Flow Rate FiO2 02/14/18 08:00 98.0 50 23 164/94 (117) 97 02/14/18 04:00 98.1 53 18 158/95 (116) 97 02/14/18 00:00 98.4 63 20 156/73 (100) 96 02/13/18 20:00 98.2 57 20 165/91 (115) 95 Manual Cuff/Auscultation 02/13/18 12:00 97.9 61 21 153/93 (113) 96 (Radha Hernandez) -: 02/14/18 0652 Physical Exam General Appearance: Well Developed, Well Nourished, No Acute Distress (Radha Hernandez) Throat Throat Exam: Oral Mucosa [place] & Moist (Radha Hernandez) Neck Neck Exam: Neck Supple (Radha Hernandez) Pulmonary Resp Exam: Clear Bilaterally, Decreased Bases (Radha Hernandez) Cardiology CV Exam: Regular, Normal Sinus Rhythm (Radha Hernandez) Gastrointestinal/Abdomen GI Exam: Soft, Non-Tender, Bowel Sounds Present (Radha Hernandez) Musculoskeletal MS Exam: Joints Intact (Radha Hernandez) Integumentary Skin Exam: Warm, Dry, Intact (Radha Hernandez) Extremeties Extremities Exam: Trace Edema (Radha Hernandez) Neurologic Neuro Exam: Alert, Awake, Oriented, Speech Clear (Radha Hernandez) Psychiatric Psych Exam: Appropriate Responses (Radha Hernandez) Assessment/Plan Problem List: (1) CKD (chronic kidney disease) ICD Codes: N18.9 - Chronic kidney disease, unspecified Plan: Creatinine stableat 1.56 -> 1.47 ->1.43->1.35->1.45 He has some acute kidney injury on admission with a creatinine of 1.7, but it has improved now to likely baseline level He has a single kidney with a GFR of around 46-51. Continue to encourage PO intake Avoid nephrotoxins. 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 Most likely this is related to autonomic neuropathy. Continue to follow with cardiology - on midodrine as well as Florinef, in addition to anti-hypertensives. Florinf may be increased in increments of 0.1 mg per week; maximum dose: 1 mg daily. Risk of HTN/ hypokalemia after 0.3mg/day. Continue sodium chloride Bharat hose Continue Midodrine and Florinef. lisinopril has been decreased need to allow permissive hypertension while supine to prevent hypotension while ambulating Florinef has been increased (Radha Hernandez) Problem List: (1) CKD (chronic kidney disease) ICD Codes: N18.9 - Chronic kidney disease, unspecified Plan: Creatinine stableat 1.56 -> 1.47 ->1.43->1.35->1.45 He has some acute kidney injury on admission with a creatinine of 1.7, but it has improved now to likely baseline level He has a single kidney with a GFR of around 46-51. Continue to encourage PO intake Avoid nephrotoxins. Patient seen and examined, agree with above. Creatinine remain stable. BP is better, on Florinef, and Midodrine. 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 Most likely this is related to autonomic neuropathy. Continue to follow with cardiology - on midodrine as well as Florinef, in addition to anti-hypertensives. Florinf may be increased in increments of 0.1 mg per week; maximum dose: 1 mg daily. Risk of HTN/ hypokalemia after 0.3mg/day. Continue sodium chloride Bharat hose Continue Midodrine and Florinef. lisinopril has been decreased need to allow permissive hypertension while supine to prevent hypotension while ambulating Florinef has been increased (Faheem Trujillo MD) Radha Hernandez Feb 14, 2018 10:03 Faheem Trujillo MD Feb 14, 2018 21:37
[2018-02-14] MEDS: amLODIPine BESYLATE 5 MG TAB PO SCH ×2 (10:09→22:06)
[2018-02-14] MEDS ORDERED: MIDODRINE 5 MG TAB PO SCH (13:00)
--- NOTE | 2018-02-14 15:00 | PD.PSY.CON ---
Provisional Diagnosis Admission Date Feb 09, 2018 at 16:30 Anderson I. Adjustment disorder with depressed mood Anderson II. 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 I was admitted in medicine with Syncopal/near syncopal episodes, dizziness, recurrent falls - suspect secondary to orthostatic hypotension. CT the head stable. MRI the brain unremarkable except for mild to moderate small vessel ischemic changes. Carotid ultrasound shows mild atherosclerotic disease. He also presented Hypokalemia. Consulted to psychiatry to address symptoms of depression. As per medical team, the patient has been tearful and expressing depression in the context of hospitalization and his last July. EMR was reviewed. Case discussed with nurse in charge. On psychiatric evaluation the patient is calm, cooperative, very pleasant. He reports that he feels much better today. He says that since he was told that there is a slight probability that he may be discharged tomorrow "I am quite happy". However, he reports that he has been struggling with depression for the last 6 months. He says that he is 57 year of marriage last July of breast cancer and he has been extremely difficult for him to cope with her last. He says that he has been having very frequent tearful moments. He becomes tearful during the interview talking about his . He reports that a time he does not find meaning in life. He feels hopeless, helpless, worthless, abandoned, but he denies to have any suicidal ideation, visual and auditory hallucinations. He says that he has a brother who committed suicide in his family suffer immensely, "I am not going to do that to my 2 daughters and 4 grandkids". He says that he is not depressed all the time , he is able to enjoy watching TV, walking in the neighborhood and he is looking forward to be discharged to enjoy his life. The patient is fully oriented 3, no attention deficit, no fluctuation of consciousness, no gross cognitive impairment elicited. He denies the use of illegal drugs or alcohol. Review of Systems Constitutional: DENIES: Diaphoretic episodes, Fatigue, Fever, Weight gain, Weight loss, Chills, Dizziness, Change in appetite, Night Sweats Endocrine: DENIES: Heat/cold intolerance, Polydipsia, Polyuria, Polyphagia Eyes: DENIES: Blurred vision, Diplopia, Eye inflammation, Eye pain, Vision loss , Photosensitivity, Double Vision Ears, nose, mouth, throat: DENIES: Tinnitus, Hearing loss, Vertigo, Nasal discharge, Oral lesions, Throat pain, Hoarseness, Ear Pain, Running Nose, Epistaxis, Sinus Pain, Toothache, Odynophagia Respiratory: DENIES: Apneas, Cough, Snoring, Wheezing, Hemoptysis, Sputum production, Shortness of breath Cardiovascular: DENIES: Chest pain, Palpitations, Syncope, Dyspnea on Exertion , PND, Lower Extremity Edema, Orthopnea, Claudication Gastrointestinal: DENIES: Abdominal pain, Black stools, Bloody stools, Constipation, Diarrhea, Nausea, Vomiting, Difficulty Swallowing, Anorexia Genitourinary: DENIES: Sexual dysfunction, Urinary frequency, Urinary incontinence, Urgency, Hematuria, Dysuria, Nocturia, Penile Discharge, Testicular Pain, Testicular Swelling Musculoskeletal: DENIES: Joint pain, Muscle aches, Stiffness, Joint Swelling, Back pain, Neck pain Integumentary: DENIES: Abnormal pigmentation, Nail changes, Pruritus, Rash Hematologic/lymphatic: DENIES: Bruising, Lymphadenopathy Immunologic/allergic: DENIES: Eczema, Urticaria Neurologic: DENIES: Abnormal gait, Headache, Localized weakness, Paresthesias, Seizures, Speech Problems, Tremor, Poor Balance Psychiatric: COMPLAINS OF: Mood changes, Depression, DENIES: Anxiety, Confusion , Hallucinations, Agitation, Suicidal Ideation, Homicidal Ideation, Delusions Past Family Social History Coded Allergies: colchicine (Verified Allergy, Mild, 02/06/18) labetalol (Verified Allergy, Mild, 02/06/18) Reported Medications Imipramine HCL (Tofranil) 50 Mg Tab, 50 MG PO HS for Control Depression, TAB 0 Refills 02/06/18 Solifenacin (Vesicare) 5 Mg Tab, 5 MG PO DAILY for Urinary Symptom Managemen, # 30 TAB 0 Refills 02/06/18 Hydrocodone-Acetaminophen (Hydrocodone-Acetaminophen) 7.5 Mg-325 Mg Tab, 1 TAB PO Q8HR Y for PAIN, TAB 0 Refills 02/06/18 Lisinopril (Lisinopril) 10 Mg Tab, 10 MG PO BID, #30 TAB 0 Refills 02/06/18 Allopurinol (Allopurinol) 100 Mg Tab, 100 MG PO BID for Gout, #30 TAB 0 Refills 02/06/18 Current Medications Medications (Trade) Dose Ordered Sig/Brad Route Start Time Stop Time Status Last Admin (NS Flush) 2 ml BID IV FLUSH 02/06/18 21:00 02/14/18 08:51 (NS Flush) 2 ml UNSCH PRN IV FLUSH 02/06/18 16:45 (Aspirin Chew) 81 mg DAILY PO 02/06/18 16:45 02/14/18 08:50 (Lipitor) 10 mg HS PO 02/06/18 21:00 02/13/18 21:32 (Lovenox Inj) 40 mg Q24H SQ 02/06/18 17:00 02/13/18 18:42 (Tylenol) 650 mg Q4H PRN PO 02/06/18 16:45 (Zofran Odt) 4 mg Q6H PRN PO 02/06/18 16:45 02/12/18 02:41 (Tylenol) 650 mg Q6H PRN PO 02/06/18 16:45 (Morphine Inj) 2 mg Q3H PRN IV PUSH 02/06/18 16:45 (Morphine Inj) 4 mg Q3H PRN IV PUSH 02/06/18 16:45 (Morphine Inj) 4 mg Q3H PRN IV PUSH 02/06/18 16:45 (Narcan Inj) 0.4 mg UNSCH PRN IV PUSH 02/06/18 16:45 (Guillermina-Colace) 1 tab BID PO 02/06/18 21:00 02/13/18 10:23 (Milk Of Magnesia Liq) 30 ml Q12H PRN PO 02/06/18 16:45 02/11/18 12:39 (Senokot) 17.2 mg Q12H PRN PO 02/06/18 16:45 (Dulcolax Supp) 10 mg DAILY PRN RECTAL 02/06/18 16:45 (Lactulose Liq) 30 ml DAILY PRN PO 02/06/18 16:45 02/11/18 12:39 (Antivert) 25 mg Q8H PO 02/06/18 17:00 Future Hold 02/09/18 02:12 (Zyloprim) 100 mg BID PO 02/06/18 21:00 02/14/18 08:51 ([place] 7.5-325 Mg) 1 tab Q8HR PRN PO 02/06/18 18:45 02/13/18 21:37 ([place] 5-325 Mg) 1 tab Q6H PRN PO 02/06/18 19:00 (Florinef) 0.1 mg DAILY PO 02/10/18 09:00 02/14/18 08:51 (Debrox 6.5% Otic) 5 drop Q12HR LEFT EAR 02/10/18 10:30 02/14/18 08:53 (Fioricet 325-50-40) 1 tab Q8H PRN PO 02/10/18 10:30 02/12/18 18:20 (Senokot) 8.6 mg BID PO 02/10/18 21:00 02/13/18 21:32 (Pill Splitter) 1 ea UNSCH PRN OTHER 02/10/18 16:00 (Sodium Chloride) 1 gm DAILY PO 02/11/18 14:30 02/14/18 08:50 (Norvasc) 2.5 mg DAILY@1000,2200 PO 02/12/18 22:00 02/14/18 10:09 (Proamatine) 2.5 mg TID@0700,1200,1800 PO 02/14/18 12:00 02/14/18 12:08 (Prinivil) 5 mg BID PO 02/14/18 09:00 02/14/18 08:50 (KCl) 10 meq DAILY PO 02/15/18 09:00 (Toprol Xl) 50 mg HS PO 02/14/18 21:00 Family Psych History He has a brother who suffered of depression and committed suicide Social History Patient was born and raised in [facility], he was at [employer] for 30 years, is , father of 2 daughters Patient's Strengths (min. 2) Family support, no previous psychiatric history Physical Exam No tremors, no EPS, no psychomotor agitation retardation Vital Signs Vital Signs Date Time Temp Pulse Resp B/P (MAP) Pulse Ox O2 Delivery O2 Flow Rate FiO2 02/14/18 12:00 98.1 55 23 177/92 (120) 97 02/10/18 10:14 21 I/O 02/14/18 02/14/18 02/15/18 08:00 16:00 00:00 Intake Total 240 ml Output Total 50 ml Balance 190 ml Lab Results Test 02/14/18 06:52 Prothrombin Time 14.0 SEC Prothromb Time International Ratio 1.4 RATIO Blood Urea Nitrogen 32 MG/DL Creatinine 1.45 MG/DL Random Glucose 115 MG/DL Calcium Level 8.4 MG/DL Sodium Level 140 MEQ/L Potassium Level 3.6 MEQ/L Chloride Level 104 MEQ/L Carbon Dioxide Level 29.7 MEQ/L Anion Gap 6 MEQ/L Estimat Glomerular Filtration Rate 47 ML/MIN Mental Status Examination Appearance: Appropriate Consciousness: Alert Orientation: x4 Motor Activity: Normal gait Speech: Unremarkable Language: Adequate Fund of Knowledge: Adequate Attention and Concentration: Adequate Memory: Unremarkable Mood: Sad Affect: Sad Thought Process & Associations: Intact Thought Content: Appropriate Hallucination Type: None Delusion Type: None Suicidal Ideation: No Suicidal Plan: No Suicidal Intention: No Homicidal Ideation: No Homicidal Plan: No Homicidal Intention: No Insight: Adequate Judgment: Adequate Assessment & Plan Problem List: (1) Adjustment disorder with depressed mood ICD Codes: F43.21 - Adjustment disorder with depressed mood Assessment & Plan: On psychiatric evaluation today the patient presents calm, cooperative, pleasant, poor reports about 6 months of mood swings, moments of tears, episodic hopelessness, helplessness, generalized pessimism in the context of mourning the of his who passed last July. The patient denies suicidal and homicidal ideation, he denies visual and auditory hallucinations. He is able to identify several protective factors for suicidality in his life including family support, gnosticism belief, spirituality. He has being tearful during the hospitalization also related with loneliness and loss of self control. He does not meet criteria for involuntary psychiatric admission. Increase Prozac to 20 mg. Brief supportive psychotherapy provided and support provided. Consult appreciated. Assessment & Plan Estimated LOS: Prakash Santa MD Feb 14, 2018 15:00
[2018-02-14 15:27] LABS: RENIN <0.6 ng/mL/h
[2018-02-14] MEDS: ENOXAPARIN SODIUM 40 MG/0.4 ML SYRINGE SQ SCH (16:53)
[2018-02-14] MEDS: ACETAMINOPHEN/HYDROcodone 325 MG/7.5 MG TAB PO PRN (17:01)
--- NOTE | 2018-02-14 17:32 | HHI.PR ---
Subjective Remarks Patient had 2 episodes of lightheadedness today, however overall much improved with bilateral hose. Denies any chest pain or shortness of breath. Patient is smiling more today, says he appreciated support provided during psychiatry visit, and looks forward to following up with psychiatry as outpatient. Objective Vital Signs Date Time Temp Pulse Resp B/P (MAP) Pulse Ox O2 Delivery O2 Flow Rate FiO2 02/14/18 16:00 97.8 56 28 148/96 (113) 98 02/14/18 12:00 98.1 55 23 177/92 (120) 97 02/14/18 10:00 57 23 141/84 (103) 97 02/14/18 08:00 98.0 50 23 164/94 (117) 97 02/14/18 04:00 98.1 53 18 158/95 (116) 97 02/14/18 00:00 98.4 63 20 156/73 (100) 96 02/13/18 20:00 98.2 57 20 165/91 (115) 95 Manual Cuff/Auscultation I/O 02/13/18 02/13/18 02/13/18 02/14/18 02/14/18 02/14/18 07:00 15:00 23:00 07:00 15:00 23:00 Intake Total 720 ml 720 ml 240 ml Output Total 400 ml 50 ml Balance 720 ml 320 ml 190 ml Intake Oral 720 ml 720 ml 240 ml Output Urine Total 400 ml 50 ml # Voids 4 # Bowel Movements 1 Result Diagram: 02/14/18 0652 Objective Remarks GENERAL: Patient sitting up in bed. Appears comfortable. Smiling a little today. SKIN: Warm and dry. HEAD: Normocephalic. EYES: No scleral icterus. No injection or drainage. NECK: Supple, trachea midline. No JVD. CARDIOVASCULAR: Regular rate and rhythm without murmurs, gallops, or rubs. RESPIRATORY: Breath sounds equal bilaterally. No accessory muscle use. GASTROINTESTINAL: Abdomen soft, non-tender, nondistended. MUSCULOSKELETAL: No cyanosis, or edema. BACK: Nontender without obvious deformity. No CVA tenderness. A/P Assessment and Plan 77-year-old gentleman who presented to the hospital today for evaluation of dizziness and multiple falls that has been ongoing for the past 2 weeks. 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 //Orthostatic hypotension in patient with known HTN, secondary to autonomic dysfunction Patient's blood pressure drops from 195/106 supine to 79/52 with standing Patient unable to participate with PT as he became unresponsive upon standing Carotid massage is contraindicated -Discussed with patient slow transitions. Apply SAI hose prior to getting up out of bed in the morning. -Continue fall precautions -Evaluated by cardiology, appreciate recommendations. Discussed with Dr. Bush. Patient started on metoprolol XL 25 mg daily. Lisinopril increased to 10 mg twice daily. Avoid Clonidine. Given IVF hydration. May benefit from addition of low-dose Midodrine in combo with antihypertensive if he doesn't respond to present treatment. Caution use of Midodrine given elevated BPs while supine. 02/10 Toprol increased to 50 mg and low-dose midodrine 2.5 mg daily added. BP standing better today at 91/54 but supine was 199/99. Recheck orthostatics at 2 :00 today. Also, Florinef added by nephrology. 02/11 Given additional 1L IVF. Toprol XL dose decreased to 25mg secondary to bradycardia. Midodrine dose increased to 5mg BID. SBP 204 supine, 62 standing. Also salt tablets started 1gm daily. Continue with PT. 02/12 standing blood pressure much improved today, 128/79 however supine SBP 200s = Cardiology has adjusted medications. Hopefully blood pressure stabilizes. B12 checked and acceptable. = 02/14. Cardiology is adjusted medications again today. Improvement with bilateral hose. Improvement in mood after psychiatry evaluation. Hopeful for discharge in the next 2 days when cleared by cardiology. //KARIME on CKD, suspect secondary to dehydration/poor oral intake History of RCC s/p right nephrectomy Creatinine 1.77, creatinine improved pending IVF hydration PVRs below 200 -Nephrology following, appreciate assistance. Likely has new elevated baseline. Renin and aldosterone levels pending. -continue to monitor I&Os -Ultrasound shows underlying medical renal disease left kidney, no obstruction -Avoid nephrotoxic agents -Creatinine 1.35 improving. Continue to monitor kidney function //Hypertension -continue on Toprol XL and Lisinopril 10mg BID with parameters per Cardiology -Continue to monitor BP //Hypokalemia -Resolved status post repletion //Chronic migraines -Fioricet prn //Dyslipidemia -Continue patient on statin therapy //Cerumen impaction left ear -continue Debrox drops //DVT prophylaxis -Lovenox sq Discharge Planning Home with home health when cleared by cardiology. We will need follow-up with psychiatry as outpatient. Asa Dutta MD Feb 14, 2018 17:32
[2018-02-14] MEDS ORDERED: METOPROLOL SUCCINATE 50 MG EXTENDED RELEASE TAB PO SCH (21:00)
[2018-02-14] MEDS: ATORVASTATIN 10 MG TAB PO SCH (22:04)
[2018-02-15] VITALS: BP 157/83; PULSE 53; RESP 20; TEMP 98.3; O2SAT 98
[2018-02-15 04:00] VITALS: BP 158/84; PULSE 49; RESP 20; TEMP 98; O2SAT 96
[2018-02-15] MEDS: MIDODRINE 5 MG TAB PO SCH ×2 (06:18→12:00)
[2018-02-15 07:11] LABS: PROTHROMBIN TIME - PATIENT 10.5 SEC (9.8-11.6)
[2018-02-15 07:27] LABS: BICARBONATE 27.2 MEQ/L (21.0-32.0); CALCIUM 8.5 MG/DL (8.5-10.1); CREATININE 1.34 MG/DL (0.60-1.30)
[2018-02-15 08:00] VITALS: BP 173/105; PULSE 45; PULSE 49; RESP 16; TEMP 97.6; O2SAT 98
--- NOTE | 2018-02-15 08:12 | PD.CARD.PN ---
Subjective Subjective Remarks Feeling better. No major complaints but mild lightheaded when standing. Ambulating with assistance. Denies CP or SOB. Objective Medications Current Medications Medications (Trade) Dose Ordered Sig/Brad Route Start Time Stop Time Status Last Admin (NS Flush) 2 ml BID IV FLUSH 02/06/18 21:00 02/14/18 22:03 (NS Flush) 2 ml UNSCH PRN IV FLUSH 02/06/18 16:45 (Aspirin Chew) 81 mg DAILY PO 02/06/18 16:45 02/14/18 08:50 (Lipitor) 10 mg HS PO 02/06/18 21:00 02/14/18 22:04 (Lovenox Inj) 40 mg Q24H SQ 02/06/18 17:00 02/14/18 16:53 (Tylenol) 650 mg Q4H PRN PO 02/06/18 16:45 (Zofran Odt) 4 mg Q6H PRN PO 02/06/18 16:45 02/12/18 02:41 (Tylenol) 650 mg Q6H PRN PO 02/06/18 16:45 (Morphine Inj) 2 mg Q3H PRN IV PUSH 02/06/18 16:45 (Morphine Inj) 4 mg Q3H PRN IV PUSH 02/06/18 16:45 (Morphine Inj) 4 mg Q3H PRN IV PUSH 02/06/18 16:45 (Narcan Inj) 0.4 mg UNSCH PRN IV PUSH 02/06/18 16:45 (Guillermina-Colace) 1 tab BID PO 02/06/18 21:00 02/13/18 10:23 (Milk Of Magnesia Liq) 30 ml Q12H PRN PO 02/06/18 16:45 02/11/18 12:39 (Senokot) 17.2 mg Q12H PRN PO 02/06/18 16:45 (Dulcolax Supp) 10 mg DAILY PRN RECTAL 02/06/18 16:45 (Lactulose Liq) 30 ml DAILY PRN PO 02/06/18 16:45 02/11/18 12:39 (Antivert) 25 mg Q8H PO 02/06/18 17:00 Future Hold 02/09/18 02:12 (Zyloprim) 100 mg BID PO 6/19/18 21:00 02/14/18 22:05 ([place] 7.5-325 Mg) 1 tab Q8HR PRN PO 02/06/18 18:45 02/14/18 17:01 ([place] 5-325 Mg) 1 tab Q6H PRN PO 02/06/18 19:00 (Florinef) 0.1 mg DAILY PO 02/10/18 09:00 02/14/18 08:51 (Debrox 6.5% Otic) 5 drop Q12HR LEFT EAR 02/10/18 10:30 02/14/18 22:03 (Fioricet 325-50-40) 1 tab Q8H PRN PO 02/10/18 10:30 02/12/18 18:20 (Senokot) 8.6 mg BID PO 02/10/18 21:00 02/13/18 21:32 (Pill Splitter) 1 ea UNSCH PRN OTHER 02/10/18 16:00 (Sodium Chloride) 1 gm DAILY PO 02/11/18 14:30 02/14/18 08:50 (Norvasc) 2.5 mg DAILY@1000,2200 PO 02/12/18 22:00 02/14/18 22:06 (Proamatine) 2.5 mg TID@0700,1200,1800 PO 02/14/18 12:00 02/15/18 06:18 (Prinivil) 5 mg BID PO 02/14/18 09:00 02/14/18 22:05 (Toprol Xl) 50 mg HS PO 02/14/18 21:00 02/14/18 22:05 (PROzac) 20 mg DAILY PO 02/15/18 09:00 (KCl) 40 meq ONCE ONCE PO 02/15/18 08:15 02/15/18 08:16 UNV (KCl) 20 meq BID PO 02/15/18 09:00 UNV Vital Signs / I&O BP sitting 134/80 (manual by me) BP standing 90/60 minimal symptoms. Vital Signs Date Time Temp Pulse Resp B/P (MAP) Pulse Ox O2 Delivery O2 Flow Rate FiO2 02/15/18 04:00 98.0 49 20 158/84 (108) 96 02/15/18 00:00 98.3 53 20 157/83 (107) 98 02/14/18 20:00 98.1 67 18 117/79 (92) 97 02/14/18 18:01 20 02/14/18 16:00 97.8 56 28 148/96 (113) 98 02/14/18 12:00 98.1 55 23 177/92 (120) 97 02/14/18 10:00 57 23 141/84 (103) 97 I/O 02/14/18 02/14/18 02/14/18 02/15/18 02/15/18 02/15/18 07:00 15:00 23:00 07:00 15:00 23:00 Intake Total 240 ml Output Total 50 ml 250 ml 1040 ml Balance 190 ml -250 ml -1040 ml Intake Oral 240 ml Output Urine Total 50 ml 250 ml 1040 ml # Voids 5 # Bowel Movements 2 0 Physical Exam BP as noted above. Orthostatic changes improving.. No JVD Lungs: CTA Heart: RRR, S4, no murmur. Ext: No C/C/E Neuro: Non-focal. Laboratory Laboratory Tests Test 02/15/18 05:15 Prothrombin Time 10.5 SEC Prothromb Time International Ratio 1.0 RATIO Blood Urea Nitrogen 31 MG/DL Creatinine 1.34 MG/DL Random Glucose 92 MG/DL Calcium Level 8.5 MG/DL Sodium Level 141 MEQ/L Potassium Level 3.2 MEQ/L Chloride Level 104 MEQ/L Carbon Dioxide Level 27.2 MEQ/L Anion Gap 10 MEQ/L Estimat Glomerular Filtration Rate 52 ML/MIN Total Protein 6.7 GM/DL Assessment and Plan Problem List: (1) Orthostatic hypotension dysautonomic syndrome ICD Codes: G90.3 - Multi-system degeneration of the autonomic nervous system Status: Chronic (2) Hypokalemia ICD Codes: E87.6 - Hypokalemia Status: Acute (3) Generalized weakness ICD Codes: R53.1 - Weakness Status: Acute Assessment and Plan Thigh high SAI hose on AM off HS. Add fluoxetine 10 mg po daily may helpif he has any reflex hypotension/syncopy. Would avoid tofranil since this may be exacerbating his orthostatic hypotension. Decrease Lisinopril 5 mg po PM only. Increase Toprol XL 50 mg qHS as tolerated by HR. Continue fludro and change midodrine dose to TID, 2.5 mg 0700, 1200, 1800. Adjust meds based on sitting and standing pressures only to avoid symptoms. Will need to accept high supine pressures. Will be able to get good supine control without significant hypotension upon standing. Replace K. See orders. Increase activity with assistance as tolerates. Continue PT. Discussed with staff pharmacist hospital and patient. OK to discharge home from my standpoint. Precautions at home reviewed with patient. No driving. Will arrange follow up with me in 1 week. Thanks. Discussed Condition With Patient and staff pharmacist hospital. Vamshi Ny MD Feb 15, 2018 08:12
[2018-02-15] MEDS ORDERED: POTASSIUM CHLORIDE 20 MEQ CONTROLLED RELEASE TAB PO ONE (08:30)
[2018-02-15] MEDS: DOCUSATE SODIUM 50 MG/SENNA 8.6 MG TAB PO SCH (09:00)
[2018-02-15] MEDS ORDERED: POTASSIUM CHLORIDE 10 MEQ CAP PO SCH ×2 (09:00)
[2018-02-15] MEDS ORDERED: FLUoxetine HCL 20 MG CAP PO SCH (09:00)
[2018-02-15] MEDS: SENNOSIDES 8.6 MG TAB PO SCH (09:00)
[2018-02-15] MEDS: ALLOPURINOL 100 MG TAB PO SCH (10:04)
[2018-02-15] MEDS: SODIUM CHLORIDE 1 GRAM TAB PO SCH (10:04)
[2018-02-15] MEDS: FLUDROCORTISONE ACETATE 0.1 MG TAB PO SCH (10:05)
[2018-02-15] MEDS: ASPIRIN 81 MG CHEW TAB PO SCH (10:05)
[2018-02-15] MEDS: SODIUM CHLORIDE 0.9% FLUSH 10 ML FLUSH IV FLUSH SCH (10:06)
[2018-02-15] MEDS: CARBAMIDE PEROXIDE 6.5% OTIC SOLN 15 ML BTL LEFT EAR SCH (10:08)
[2018-02-15] MEDS: amLODIPine BESYLATE 5 MG TAB PO SCH (10:36)
[2018-02-15] MEDS ORDERED: MIDO5TAB PO (11:27)
[2018-02-15] MEDS ORDERED: AMLO5 PO (11:27)
[2018-02-15] MEDS ORDERED: ASPI81 PO (11:27)
[2018-02-15] MEDS ORDERED: FLUD.1 PO (11:27)
[2018-02-15] MEDS ORDERED: SODI1TAB PO (11:27)
[2018-02-15] MEDS ORDERED: LIPI10TA PO (11:27)
[2018-02-15] MEDS ORDERED: METO1TAB9 PO (11:27)
[2018-02-15] MEDS ORDERED: SENN187 PO (11:27)
[2018-02-15] MEDS ORDERED: FLUO20CA12 PO (11:27)
[2018-02-15] MEDS ORDERED: POTA10CA PO ×2 (11:27→11:32)
[2018-02-15] MEDS ORDERED: LISI-519 PO (11:27)
[2018-02-15 12:00] VITALS: BP_SYST 167; BP_SYST 191; BP_DIAS 100; BP_DIAS 98; PULSE 50; RESP 16; TEMP 98.2; O2SAT 100
--- NOTE | 2018-02-15 13:49 | HHI.NPPN ---
Subjective Renal Failure: Acute Additional Remarks Resting comfortably with no complaints. Review of Systems Respiratory Respiratory Remarks Denies SOB Cardiovascular Cardiac Remarks Denies chest pain Objective Data Data Vital Signs Date Time Temp Pulse Resp B/P (MAP) Pulse Ox O2 Delivery O2 Flow Rate FiO2 02/15/18 12:00 98.2 50 16 191/98 (129) 100 02/15/18 12:00 167/100 (122) 02/15/18 08:00 45 02/15/18 08:00 97.6 49 16 173/105 (127) 98 02/15/18 04:00 98.0 49 20 158/84 (108) 96 02/15/18 00:00 98.3 53 20 157/83 (107) 98 02/14/18 20:00 98.1 67 18 117/79 (92) 97 02/14/18 18:01 20 02/14/18 16:00 97.8 56 28 148/96 (113) 98 -: 02/15/18 0515 Imaging Last Impressions Renal Ultrasound 02/08/18 0000 Signed Impressions: CONCLUSION: 1. Prior right nephrectomy. 2. Left kidney with sonographic findings suggesting underlying medical renal d isease. No obstruction. Head CT 02/06/18 1227 Signed Impressions: CONCLUSION: 1. Stable CT scan of the brain compared to 2014. 2. No acute intracranial hemorrhage. Head Magnetic Resonance Angiography 02/06/18 0000 Signed Impressions: CONCLUSION: 1. Hypoplastic right A1 segment. 2. Otherwise, unremarkable MRA examination of the brain. Chest X-Ray 02/06/18 Signed Impressions: CONCLUSION: Under inflation with atelectasis at the lung bases. Otherwise, no acute finding is appreciated. Carotid Artery Ultrasound 02/06/18 Signed Impressions: CONCLUSION: 1. Right Internal Carotid Artery: Mild atherosclerotic disease 2. Left Internal Carotid Artery: Mild atherosclerotic disease Brain MRI 02/06/18 Signed Impressions: CONCLUSION: 1. [id number] periventricular small vessel ischemic white matter denomin ation. 2. Otherwise, unremarkable MRI examination of the brain. Physical Exam General Appearance: Well Developed, Well Nourished, No Acute Distress Throat Throat Exam: Oral Mucosa Mcrae & Moist Neck Neck Exam: Neck Supple Pulmonary Resp Exam: Clear Bilaterally, Decreased Bases Cardiology CV Exam: Regular, Normal Sinus Rhythm Gastrointestinal/Abdomen GI Exam: Soft, Non-Tender, Bowel Sounds Present Musculoskeletal MS Exam: Joints Intact Integumentary Skin Exam: Warm, Dry, Intact Extremeties Extremities Exam: Trace Edema Neurologic Neuro Exam: Alert, Awake, Oriented, Speech Clear Psychiatric Psych Exam: Appropriate Responses Assessment/Plan Problem List: (1) CKD (chronic kidney disease) ICD Codes: N18.9 - Chronic kidney disease, unspecified Plan: Creatinine stable at 1.34 He has some acute kidney injury on admission with a creatinine of 1.7, but it has improved now to likely baseline level He has a single kidney with a GFR of around 46-51. Hypokalemia at 3.2 with replacement given. Continue to encourage PO intake Avoid nephrotoxins. 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 Most likely this is related to autonomic neuropathy. Continue to follow with cardiology - on midodrine as well as Florinef, in addition to anti-hypertensives. Florinf may be increased in increments of 0.1 mg per week; maximum dose: 1 mg daily. Risk of HTN/ hypokalemia after 0.3mg/day. Continue sodium chloride Bharat hose Continue Midodrine and Florinef. Allow permissive hypertension while supine to prevent hypotension while ambulating Radha Hernandez Feb 15, 2018 13:49
--- NOTE | 2018-02-15 15:15 | HHI.PR ---
Subjective Remarks Patient says he is feeling well today. No lightheadedness. Feels like going home. Objective Vital Signs Date Time Temp Pulse Resp B/P (MAP) Pulse Ox O2 Delivery O2 Flow Rate FiO2 02/15/18 12:00 98.2 50 16 191/98 (129) 100 02/15/18 12:00 167/100 (122) 02/15/18 08:00 45 02/15/18 08:00 97.6 49 16 173/105 (127) 98 02/15/18 04:00 98.0 49 20 158/84 (108) 96 02/15/18 00:00 98.3 53 20 157/83 (107) 98 02/14/18 20:00 98.1 67 18 117/79 (92) 97 02/14/18 18:01 20 02/14/18 16:00 97.8 56 28 148/96 (113) 98 I/O 02/14/18 02/14/18 02/14/18 02/15/18 02/15/18 02/15/18 07:00 15:00 23:00 07:00 15:00 23:00 Intake Total 240 ml Output Total 50 ml 250 ml 1040 ml Balance 190 ml -250 ml -1040 ml Intake Oral 240 ml Output Urine Total 50 ml 250 ml 1040 ml # Voids 5 # Bowel Movements 2 0 Result Diagram: 02/15/18 0515 Objective Remarks GENERAL: Patient sitting up in bed. Appears comfortable. Smiling. SKIN: Warm and dry. HEAD: Normocephalic. EYES: No scleral icterus. No injection or drainage. NECK: Supple, trachea midline. No JVD. CARDIOVASCULAR: Regular rate and rhythm without murmurs, gallops, or rubs. RESPIRATORY: Breath sounds equal bilaterally. No accessory muscle use. GASTROINTESTINAL: Abdomen soft, non-tender, nondistended. MUSCULOSKELETAL: No cyanosis, or edema. BACK: Nontender without obvious deformity. No CVA tenderness. A/P Assessment and Plan 77-year-old gentleman who presented to the hospital today for evaluation of dizziness and multiple falls that has been ongoing for the past 2 weeks. 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 //Orthostatic hypotension in patient with known HTN, secondary to autonomic dysfunction Patient's blood pressure drops from 195/106 supine to 79/52 with standing Patient unable to participate with PT as he became unresponsive upon standing Carotid massage is contraindicated -Discussed with patient slow transitions. Apply SAI hose prior to getting up out of bed in the morning. -Continue fall precautions -Evaluated by cardiology, appreciate recommendations. Discussed with Dr. Bush. Patient started on metoprolol XL 25 mg daily. Lisinopril increased to 10 mg twice daily. Avoid Clonidine. Given IVF hydration. May benefit from addition of low-dose Midodrine in combo with antihypertensive if he doesn't respond to present treatment. Caution use of Midodrine given elevated BPs while supine. 02/10 Toprol increased to 50 mg and low-dose midodrine 2.5 mg daily added. BP standing better today at 91/54 but supine was 199/99. Recheck orthostatics at 2 :00 today. Also, Florinef added by nephrology. 02/11 Given additional 1L IVF. Toprol XL dose decreased to 25mg secondary to bradycardia. Midodrine dose increased to 5mg BID. SBP 204 supine, 62 standing. Also salt tablets started 1gm daily. Continue with PT. 02/12 standing blood pressure much improved today, 128/79 however supine SBP 200s = Cardiology has adjusted medications. Hopefully blood pressure stabilizes. B12 checked and acceptable. = 02/14. Cardiology is adjusted medications again today. Improvement with bilateral hose. Improvement in mood after psychiatry evaluation. Hopeful for discharge in the next 2 days when cleared by cardiology. = Orthostatic hypotension with suspected small fiber neuropathy. A1c nondiabetic. B12 within normal limits. Pending serum protein electrophoresis. Pending serum copper. Follow-up with primary care. //KARIME on CKD, suspect secondary to dehydration/poor oral intake History of RCC s/p right nephrectomy Creatinine 1.77, creatinine improved pending IVF hydration PVRs below 200 -Nephrology following, appreciate assistance. Likely has new elevated baseline. Renin and aldosterone levels pending. -continue to monitor I&Os -Ultrasound shows underlying medical renal disease left kidney, no obstruction -Avoid nephrotoxic agents -Creatinine 1.35 improving. Continue to monitor kidney function //Hypertension -continue on Toprol XL and Lisinopril 10mg BID with parameters per Cardiology -Continue to monitor BP //Hypokalemia = Start daily replacement. Follow-up with primary care. //Chronic migraines -Fioricet prn //Dyslipidemia -Continue patient on statin therapy //Cerumen impaction left ear -continue Debrox drops //DVT prophylaxis -Lovenox sq Discharge Planning Cleared by cardiology. Home with home health. Follow-up with multiple consultants. Asa Dutta MD Feb 15, 2018 15:15
--- NOTE | 2018-02-15 15:18 | HHI.DS ---
Discharge Summary Admission Date Feb 09, 2018 at 16:30 Discharge Date: Feb 15, 2018 Admitting Diagnosis orthostatic hypotension, falls, generalized weakness (1) Renal insufficiency ICD Code: N28.9 - Disorder of kidney and ureter, unspecified Diagnosis: Principal (2) Renal cell carcinoma ICD Code: C64.9 - Malignant neoplasm of unspecified kidney, except renal pelvis Diagnosis: Secondary (3) Orthostasis ICD Code: I95.1 - Orthostatic hypotension Diagnosis: Principal Status: Acute (4) Vertigo ICD Code: R42 - Dizziness and giddiness Diagnosis: Principal Status: Acute (5) Generalized weakness ICD Code: R53.1 - Weakness Diagnosis: Principal Status: Acute (6) Paroxysmal atrial fibrillation ICD Code: I48.0 - Paroxysmal atrial fibrillation Diagnosis: Secondary Status: Acute (7) Hypertensive heart disease ICD Code: I11.9 - Hypertensive heart disease without heart failure Diagnosis: Principal Status: Acute (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 Patient states that when he gets up in the morning walks the bathroom turned around and feels dizzy often falling with injuries resulting in head trauma. He states he has feels unsteady and like the room is spinning despite him holding onto multiple objects in the room states that his dizziness lasts for 10 minutes but then resolved spontaneously. Also occurs from sitting to standing position. Denies any loss of consciousness or blurred vision or headache. States last night he had the same incident occurred when he fell hitting his head and staying on the floor for approximately 20 minutes. Patient states he was able to move and walk normally after the incident. Denies any fever chills or chest pain or abdominal pain or nausea vomiting or diarrhea he states that he is normally has some shortness of breath secondary to his congestive heart failure stress test and echo was in 2017 patient also takes hydrocodone daily for hip and back pain probably every 8 hours as needed patient's past medical history consists of congestive heart failure hypertension and what sounds like some urinary incontinence with issues with bladder issues which may be causing the orthostatic hypotension causing him to fall since the medications he is on have those side effects. CBC/BMP: 02/15/18 0515 Significant Findings Laboratory Tests Test 02/13/18 05:39 02/14/18 06:52 02/15/18 05:15 Blood Urea Nitrogen 30 MG/DL (7-18) 32 MG/DL (7-18) 31 MG/DL (7-18) Creatinine 1.35 MG/DL (0.60-1.30) 1.45 MG/DL (0.60-1.30) 1.34 MG/DL (0.60-1.30) Estimat Glomerular Filtration Rate 51 ML/MIN (>89) 47 ML/MIN (>89) 52 ML/MIN (>89) Vitamin B12 Level 1577 PG/ML (193-986) Prothrombin Time 14.0 SEC (9.8-11.6) Random Glucose 115 MG/DL (74-106) Calcium Level 8.4 MG/DL (8.5-10.1) Potassium Level 3.2 MEQ/L (3.5-5.1) Imaging Last Impressions Renal Ultrasound 02/08/18 0000 Signed Impressions: CONCLUSION: 1. Prior right nephrectomy. 2. Left kidney with sonographic findings suggesting underlying medical renal d isease. No obstruction. Head CT 02/06/18 1227 Signed Impressions: CONCLUSION: 1. Stable CT scan of the brain compared to 2015. 2. No acute intracranial hemorrhage. Head Magnetic Resonance Angiography 02/06/18 0000 Signed Impressions: CONCLUSION: 1. Hypoplastic right A1 segment. 2. Otherwise, unremarkable MRA examination of the brain. Chest X-Ray 02/06/18 0000 Signed Impressions: CONCLUSION: Under inflation with atelectasis at the lung bases. Otherwise, no acute finding is appreciated. Carotid Artery Ultrasound 02/06/18 0000 Signed Impressions: CONCLUSION: 1. Right Internal Carotid Artery: Mild atherosclerotic disease 2. Left Internal Carotid Artery: Mild atherosclerotic disease Brain MRI 02/06/18 0000 Signed Impressions: CONCLUSION: 1. [id number] periventricular small vessel ischemic white matter denomin ation. 2. Otherwise, unremarkable MRI examination of the brain. PE at Discharge GENERAL: This is a well-nourished, well-developed elderly male patient, in no apparent distress. Awake and alert. Sitting up in bed. SKIN: Warm and dry. Superficial abrasions noted on bilateral knees. HEAD: Atraumatic. Normocephalic. 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 Extraocular motions intact. No scleral icterus. No injection or drainage. ENT: Nose without bleeding or purulent drainage. Airway patent. MMM. Left ear canal + cerumen impaction, unable to visualize tympanic membrane. NECK: Trachea midline. CARDIOVASCULAR: Regular rate and rhythm without murmurs, gallops, or rubs. RESPIRATORY: Nonlabored. Clear to auscultation. Breath sounds equal bilaterally. No wheezes, rales, or rhonchi. GASTROINTESTINAL: Abdomen soft, non-tender, nondistended. No guarding. MUSCULOSKELETAL: Extremities without clubbing, cyanosis, or edema. No calf tenderness. NEUROLOGICAL: Awake and alert. Cranial nerves II through XII grossly intact. Motor and sensory grossly within normal limits. Nonfocal. Normal speech. PSYCHIATRIC: Calm and cooperative. Hospital Course Imaging unremarkable as above. Patient profoundly orthostatic, with 50 point blood pressure drop upon standing. Neurology, cardiology, nephrology consulted. Cardiology and nephrology adjusted blood pressure medications, graduated compression stockings were provided, with eventual improvement in stability of blood pressure, and improvement in lightheadedness. Physical therapy evaluated the patient and recommends home with home health. Patient was cleared by cardiology. Follow with cardiology, primary care. For problem based summary from most recent progress note, please see below. 77-year-old gentleman who presented to the hospital today for evaluation of dizziness and multiple falls that has been ongoing for the past 2 weeks. 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 //Orthostatic hypotension in patient with known HTN, secondary to autonomic dysfunction Patient's blood pressure drops from 195/106 supine to 79/52 with standing Patient unable to participate with PT as he became unresponsive upon standing Carotid massage is contraindicated -Discussed with patient slow transitions. Apply SAI hose prior to getting up out of bed in the morning. -Continue fall precautions -Evaluated by cardiology, appreciate recommendations. Discussed with Dr. Bush. Patient started on metoprolol XL 25 mg daily. Lisinopril increased to 10 mg twice daily. Avoid Clonidine. Given IVF hydration. May benefit from addition of low-dose Midodrine in combo with antihypertensive if he doesn't respond to present treatment. Caution use of Midodrine given elevated BPs while supine. 02/10 Toprol increased to 50 mg and low-dose midodrine 2.5 mg daily added. BP standing better today at 91/54 but supine was 199/99. Recheck orthostatics at 2 :00 today. Also, Florinef added by nephrology. 02/11 Given additional 1L IVF. Toprol XL dose decreased to 25mg secondary to bradycardia. Midodrine dose increased to 5mg BID. SBP 204 supine, 62 standing. Also salt tablets started 1gm daily. Continue with PT. 02/12 standing blood pressure much improved today, 128/79 however supine SBP 200s = Cardiology has adjusted medications. Hopefully blood pressure stabilizes. B12 checked and acceptable. = 02/14. Cardiology is adjusted medications again today. Improvement with bilateral hose. Improvement in mood after psychiatry evaluation. Hopeful for discharge in the next 2 days when cleared by cardiology. = Orthostatic hypotension with suspected small fiber neuropathy. A1c nondiabetic. B12 within normal limits. Pending serum protein electrophoresis. Pending serum copper. Follow-up with primary care. //KARIME on CKD, suspect secondary to dehydration/poor oral intake History of RCC s/p right nephrectomy Creatinine 1.77, creatinine improved pending IVF hydration PVRs below 200 -Nephrology following, appreciate assistance. Likely has new elevated baseline. Renin and aldosterone levels pending. -continue to monitor I&Os -Ultrasound shows underlying medical renal disease left kidney, no obstruction -Avoid nephrotoxic agents -Creatinine 1.35 improving. Continue to monitor kidney function //Hypertension -continue on Toprol XL and Lisinopril 10mg BID with parameters per Cardiology -Continue to monitor BP //Hypokalemia = Start daily replacement. Follow-up with primary care. //Chronic migraines -Fioricet prn //Dyslipidemia -Continue patient on statin therapy //Cerumen impaction left ear -continue Debrox drops //DVT prophylaxis -Lovenox sq Discharge Planning Cleared by cardiology. Home with home health. Follow-up with multiple consultants. Pt Condition on Discharge: Good Discharge Disposition: Disch w/ Home Health Serv Discharge Time: > 30 minutes Discharge Instructions DIET: Follow Instructions for: Heart Healthy Diet Activities you can perform: Regular-No Restrictions Follow up Referrals: Cardiology - 1 Week with Vamshi Ny MD Nephrology - 1 Week Neurology - 1 Week PCP Follow-up - 1 Week with Garrett Castro MD Psychiatry Adult - 1 Week New Medications: Bedside Commode (Bedside Commode) 1 Mis Mis EA .XX DIRECTED, #1 Amlodipine (Norvasc) 5 Mg Tab 2.5 MG PO DAILY@1000,2200 for Blood Pressure Management for 30 Days, TAB Aspirin (Tgt Aspirin) 81 Mg Chw 81 MG PO DAILY for Blood Clot Prevention for 30 Days, EA Atorvastatin (Lipitor) 10 Mg Tab 10 MG PO HS for Cholesterol Management for 30 Days, TAB Fludrocortisone (Fludrocortisone) 0.1 Mg Tab 0.1 MG PO DAILY for Blood Pressure Management for 30 Days, #30 TAB Fluoxetine (Fluoxetine) 20 Mg Capsule 20 MG PO DAILY for Depression Control for 30 Days, #30 CAP Lisinopril (Lisinopril) 5 Mg Tab 5 MG PO DAILY for Blood Pressure Management for 30 Days, #30 TAB Metoprolol Succinate ER 24 HR (Metoprolol Succinate ER 24 HR) 50 Mg Tab 50 MG PO HS for Blood Pressure Management for 30 Days, TAB Midodrine (Midodrine) 5 Mg Tab 2.5 MG PO TID@0700,1200,1800 for Blood Pressure Management for 30 Days, TAB Potassium Chloride ER (Potassium Chloride ER) 10 Meq Cap 20 MEQ PO DAILY for replace potassium for 30 Days, #60 CAP Sennosides (Senna-Lax) 8.6 Mg Tab 8.6 MG PO BID for Constipation for 30 Days, #60 TAB Sodium Chloride (Sodium Chloride) 1 Gram Tab 1 GM PO DAILY for Blood Pressure Management for 30 Days, TAB Continued Medications: Allopurinol (Allopurinol) 100 Mg Tab 100 MG PO BID for Gout, #30 TAB 0 Refills Hydrocodone-Acetaminophen (Hydrocodone-Acetaminophen) 7.5 Mg-325 Mg Tab 1 TAB PO Q8HR PRN for PAIN, TAB 0 Refills Discontinued Medications: Imipramine HCL (Tofranil) 50 Mg Tab 50 MG PO HS for Control Depression, TAB 0 Refills Lisinopril (Lisinopril) 10 Mg Tab 10 MG PO BID, #30 TAB 0 Refills Solifenacin (Vesicare) 5 Mg Tab 5 MG PO DAILY for Urinary Symptom Managemen, #30 TAB 0 Refills Asa Dutta MD Feb 15, 2018 15:18
[2018-02-15] MEDS ORDERED: LISINOPRIL 5 MG TAB PO SCH (21:00)
[2018-02-16 15:36] LABS: ALB/GLOB RATIO (SPE) 1.55 (1.39-2.23)
== END 2018-02-15 14:45 | disposition home health service (06) | DRG 56 ==
LOC: NEPC 11:51 → INTOOBSV 16:35 → NEDA 16:35 → OBSVTOIN 16:35 → NEPFCDU 19:33 → OBSVTOIN 02-09 16:30 → N03B 02-10 22:19
PROVIDERS: ADMIT Internal Medicine; ATTEND Internal Medicine
DX: G90.3 Multi-system degeneration of the autonomic nervous system (principal); Q28.3 Other malformations of cerebral vessels; N17.9 Acute kidney failure, unspecified; I48.0 Paroxysmal atrial fibrillation; E86.0 Dehydration; I13.0 Hypertensive heart and chronic kidney disease with heart failure and stage 1 through stage 4 chronic kidney disease, or unspecified chronic kidney disease; I50.32 Chronic diastolic (congestive) heart failure; F03.90 Unspecified dementia, unspecified severity, without behavioral disturbance, psychotic disturbance, mood disturbance, and anxiety; I95.2 Hypotension due to drugs; I65.23 Occlusion and stenosis of bilateral carotid arteries; E78.5 Hyperlipidemia, unspecified; M10.9 Gout, unspecified; I25.10 Atherosclerotic heart disease of native coronary artery without angina pectoris; N18.9 Chronic kidney disease, unspecified; R29.6 Repeated falls; K21.9 Gastro-esophageal reflux disease without esophagitis; T43.015A Adverse effect of tricyclic antidepressants, initial encounter; T44.3X5A Adverse effect of other parasympatholytics [anticholinergics and antimuscarinics] and spasmolytics, initial encounter; E87.6 Hypokalemia; R32 Unspecified urinary incontinence; M48.00 Spinal stenosis, site unspecified; I49.3 Ventricular premature depolarization; G47.30 Sleep apnea, unspecified; G43.909 Migraine, unspecified, not intractable, without status migrainosus; H61.22 Impacted cerumen, left ear; M19.90 Unspecified osteoarthritis, unspecified site; H91.90 Unspecified hearing loss, unspecified ear; F43.21 Adjustment disorder with depressed mood; Z82.49 Family history of ischemic heart disease and other diseases of the circulatory system; Z85.528 Personal history of other malignant neoplasm of kidney; Z90.5 Acquired absence of kidney; Z95.5 Presence of coronary angioplasty implant and graft
CPT/HCPCS: 70450; 70544; 70551; 71045; 76775; 80048; 80053; 80061; 81001; 82088; 82525; 82533; 82550; 82570; 82607; 82948; 83036; 83735; 84100; 84165; 84244; 84300; 84439; 84443; 84484; 85025; 85610; 85730; 93005; 93306; 93880; 94150; 96360; 96361; 96372; G0378; G8987-GO; G8987-GP; G8988-GO; G8988-GP; J1650; J2765; J7030; J7040

== ENCOUNTER 2018-04-22 08:01 | Inpatient (IN) ==
[2018-04-22 08:30] LABS: Baso % (Auto) 0.2 % (0.0-2.0); Hemoglobin 14.5 gm/dL (13.0-17.0); Lymph # (Auto) 1.6 th/mm3 (1.0-4.8); Mean Corpuscular HGB Conc 33.7 % (32.0-36.0); Mean Corpuscular Hemoglobin 32.6 pg (27.0-34.0); Mean Corpuscular Volume 96.8 fL (80.0-100.0); Mean Platelet Volume 7.6 fL (7.0-11.0); Mono # (Auto) 0.5 th/mm3 (0.0-0.9); Mono % (Auto) 6.5 % (0.0-8.0); Neut # (Auto) 5.4 th/mm3 (1.8-7.7); Neut % (Auto) 72.3 % (16.0-70.0); Platelet Count 154 th/mm3 (150-450); Red Blood Count 4.44 mil/mm3 (4.50-5.90); Red Cell Distribution Width 13.8 % (11.6-17.2); White Blood Count 7.5 th/mm3 (4.0-11.0)
--- NOTE | 2018-04-22 08:41 | ED ---
HPI General Chief complaint: Syncope Stated complaint: Medical Time Seen by Provider: 04/22/18 08:16 History of Present Illness HPI narrative: Is a 77-year-old male presents emergency department for 2 episodes of syncope which occurred this morning. Patient according to EMS does have a history of "hydrostatic hypotension". According to EMS they found the patient on the floor somnolent, heart rates in the 50s, they sat when he came to they set him up and his heart rate went up into the 160s is well as his blood pressure and then he had additional syncopal episode. Patient states he is not yet had his morning medication. He cannot recall all of his medications and does show up with a bag of pill bottles probably 40 in number. Denies any chest pain shortness of breath head injury or neck injury. Related Data Home Medications Medication Instructions Recorded Confirmed amlodipine 2.5 mg PO BID 04/03/18 04/22/18 aspirin [Aspirin Low Dose] 81 mg PO DAILY 04/03/18 04/22/18 fludrocortisone 0.1 mg PO DAILY 04/03/18 04/22/18 lisinopril 5 mg PO DAILY 04/03/18 04/22/18 metoprolol succinate 50 mg PO HS 04/03/18 04/22/18 midodrine 2.5 mg PO TID 04/03/18 04/22/18 fluoxetine 20 mg PO DAILY 04/22/18 04/22/18 imipramine HCl 50 mg PO HS 04/22/18 04/22/18 montelukast 10 mg PO QPM 04/22/18 04/22/18 oxycodone-acetaminophen 1 tab PO Q4-6H PRN 04/22/18 04/22/18 potassium chloride [Klor-Con 10 meq PO BID 04/22/18 04/22/18 Sprinkle] sennosides [Senna Laxative] 8.6 mg PO BID 04/22/18 04/22/18 sodium chloride 1 tab PO DAILY 04/22/18 04/22/18 spironolactone 25 mg PO DAILY 04/22/18 04/22/18 Previous Rx's Medication Instructions Recorded hydrocodone-acetaminophen 1 tab PO Q4H PRN #10 tab 04/25/18 Allergies Allergy/AdvReac Type Severity Reaction Status Date / Time colchicine Allergy Severe Headache Verified 04/22/18 08:06 labetalol Allergy Unknown unknown Verified 04/22/18 08:06 Review of Systems ROS: all other systems reviewed are negative [facility] Social History Social History Substance History: No History of Abuse Second Hand Smoke Exposure: No Smoking Status: Never smoker How Often Do You Have a Drink Containing Alcohol: Never Recent Travel in [place] within the Last 8 Weeks: No Recent Out of Country Travel within the Last 8 Weeks: No Immunization History Tetanus Immunization: Unsure Hx Influenza Vaccine This Season: No Exam Narrative Exam Narrative: GENERAL: WD/WN in nad. SKIN: Focused skin assessment warm/dry. HEAD: Atraumatic. Normocephalic. EYES: Pupils equal and round. No scleral icterus. No injection or drainage. ENT: No nasal bleeding or discharge. Mucous membranes pink and moist. NECK: Trachea midline. No JVD. CARDIOVASCULAR: Irregularly irregular and tachycardic.. No murmur appreciated. RESPIRATORY: No accessory muscle use. Clear to auscultation. Breath sounds equal bilaterally. GASTROINTESTINAL: Abdomen soft, non-tender, nondistended. Hepatic and splenic margins not palpable. MUSCULOSKELETAL: No obvious deformities. No clubbing. No cyanosis. No edema. NEUROLOGICAL: Awake and alert. No obvious cranial nerve deficits. Motor grossly within normal limits. Normal speech. PSYCHIATRIC: Appropriate mood and affect; insight and judgment normal. Course Initial Documented Vital Signs Temperature 98.1 F 04/22/18 08:06 Pulse Rate 132 H 04/22/18 08:06 Respiratory Rate 20 04/22/18 08:06 Blood Pressure 151/106 H 04/22/18 08:06 Pulse Oximetry 95 04/22/18 08:06 Last Documented Vital Signs Temperature 98.4 F 04/25/18 15:00 Pulse Rate 54 L 04/25/18 18:00 Respiratory Rate 18 04/25/18 15:00 Blood Pressure 98/55 L 04/25/18 15:00 Pulse Oximetry 96 04/25/18 15:00 Medical Decision Making [facility] Narrative Medical decision making narrative: Patient room to the emergency department, 2 syncopal episodes prior to presentation today, found to be in atrial fibrillation with RVR in the high 140s low 150s. A dose of Cardizem was given had transient response for about 10 minutes and then required Cardizem drip. Hemodynamically he was a little hypotensive but blood pressure has been quite variable. Half liter normal saline was given as well. Blood pressure otherwise has been perfusable and stabilized. Patient was discussed with Dr. Forte for admission. He is agreeable. We will go to [facility]. Patient after admission was discussed with Dr. Hyatt. Patient has history of autonomic dysfuction, apparently this is new onset afib. He agrees that rate control is a first. Medical Screen Exam Complete: Yes Emergency Medical Condition: Yes Differential Diagnosis Differential Diagnosis: Syncope, dehydration, autonomic dysfuction, afib rvr, cardiac syncope. Lab Data Result diagrams: 04/22/18 08:15 04/25/18 04:44 Lab Results 04/22/18 04/22/18 04/23/18 Range/Units 08:15 08:15 03:47 WBC 7.5 (4.0-11.0) th/mm3 RBC 4.44 L (4.50-5.90) mil/mm3 Hgb 14.5 (13.0-17.0) gm/dL Hct 43.0 (39.0-51.0) % MCV 96.8 (80.0-100.0) fL MCH 32.6 (27.0-34.0) pg MCHC 33.7 (32.0-36.0) % RDW 13.8 (11.6-17.2) % Plt Count 154 (150-450) th/mm3 MPV 7.6 (7.0-11.0) fL Neut % (Auto) 72.3 H (16.0-70.0) % Lymph % (Auto) 21.0 (9.0-44.0) % Stearns % (Auto) 6.5 (0.0-8.0) % Eos % (Auto) 0.0 (0.0-4.0) % Baso % (Auto) 0.2 (0.0-2.0) % Neut # (Auto) 5.4 (1.8-7.7) th/mm3 Lymph # (Auto) 1.6 (1.0-4.8) th/mm3 Stearns # (Auto) 0.5 (0.0-0.9) th/mm3 Eos # (Auto) 0.0 (0.0-0.4) th/mm3 Baso # (Auto) 0.0 (0.0-0.2) th/mm3 WBC Differential . Differential Comment Auto diff final Sodium 143 144 (136-145) meq/L Potassium 3.6 3.4 L (3.5-5.1) meq/L Chloride 103 105 (98-107) meq/L Carbon Dioxide 29.8 29.2 (21.0-32.0) meq/L Anion Gap 10 10 (5-15) meq/L BUN 20 H 22 H (7-18) mg/dL Creatinine 1.40 H 1.11 (0.60-1.30) mg/dL Estimated GFR 49 L 64 L (>89) mL/min Random Glucose 138 H 118 H (74-106) mg/dL Calcium 8.4 L 8.5 (8.5-10.1) mg/dL Magnesium 2.1 (1.5-2.5) mg/dL Total Bilirubin 1.0 (0.2-1.0) mg/dL AST 25 (15-37) U/L ALT 51 (12-78) U/L Alkaline Phosphatase 127 H (45-117) U/L Troponin I 0.04 (0.02-0.05) ng/mL Total Protein 7.3 (6.4-8.2) g/dL Albumin 3.5 (3.4-5.0) g/dL Urine Color (Yellw/Straw) Urine Clarity (Clear) Urine pH (5.0-8.5) Ur Specific [place] (1.002-1.035) Urine Protein (Neg-Trace) mg/dL Urine Glucose (UA) (Negative) mg/dL Urine Ketones (Negative) mg/dL Urine Occult Blood (Negative) Urine Nitrate (Negative) Urine Bilirubin (Negative) Urine Urobilinogen (Less than 2) mg/dL Ur Leukocyte Esterase (Negative) Urine RBC (0-3) /hpf Urine WBC (0-5) /hpf Ur Squamous Epith Cells (0-5) /hpf Urine Mucus (Occasional) /lpf Ur Microscopic Review 04/24/18 04/25/18 Range/Units 21:00 04:44 WBC (4.0-11.0) th/mm3 RBC (4.50-5.90) mil/mm3 Hgb (13.0-17.0) gm/dL Hct (39.0-51.0) % MCV (80.0-100.0) fL MCH (27.0-34.0) pg MCHC (32.0-36.0) % RDW (11.6-17.2) % Plt Count (150-450) th/mm3 MPV (7.0-11.0) fL Neut % (Auto) (16.0-70.0) % Lymph % (Auto) (9.0-44.0) % Stearns % (Auto) (0.0-8.0) % Eos % (Auto) (0.0-4.0) % Baso % (Auto) (0.0-2.0) % Neut # (Auto) (1.8-7.7) th/mm3 Lymph # (Auto) (1.0-4.8) th/mm3 Stearns # (Auto) (0.0-0.9) th/mm3 Eos # (Auto) (0.0-0.4) th/mm3 Baso # (Auto) (0.0-0.2) th/mm3 WBC Differential Differential Comment Sodium 142 (136-145) meq/L Potassium 3.6 (3.5-5.1) meq/L Chloride 102 (98-107) meq/L Carbon Dioxide 29.5 (21.0-32.0) meq/L Anion Gap 11 (5-15) meq/L BUN 21 H (7-18) mg/dL Creatinine 1.19 (0.60-1.30) mg/dL Estimated GFR 59 L (>89) mL/min Random Glucose 119 H (74-106) mg/dL Calcium 8.4 L (8.5-10.1) mg/dL Magnesium (1.5-2.5) mg/dL Total Bilirubin (0.2-1.0) mg/dL AST (15-37) U/L ALT (12-78) U/L Alkaline Phosphatase (45-117) U/L Troponin I (0.02-0.05) ng/mL Total Protein (6.4-8.2) g/dL Albumin (3.4-5.0) g/dL Urine Color Yellow (Yellw/Straw) Urine Clarity Clear (Clear) Urine pH 6.0 (5.0-8.5) Ur Specific [place] 1.018 (1.002-1.035) Urine Protein 30 H (Neg-Trace) mg/dL Urine Glucose (UA) Negative (Negative) mg/dL Urine Ketones Negative (Negative) mg/dL Urine Occult Blood Moderate H (Negative) Urine Nitrate Negative (Negative) Urine Bilirubin Negative (Negative) Urine Urobilinogen 2.0 H (Less than 2) mg/dL Ur Leukocyte Esterase Negative (Negative) Urine RBC 4 H (0-3) /hpf Urine WBC 1 (0-5) /hpf Ur Squamous Epith Cells <1 (0-5) /hpf Urine Mucus Few H (Occasional) /lpf Ur Microscopic Review Not Reportable Imaging Data Radiologist's impression: Cervical Spine CT 04/22/18 08:41 CONCLUSION: 1. Multilevel degenerative changes are seen without fracture or listhesis. Head CT 04/22/18 08:41 CONCLUSION: 1. Negative CT Head non contrast. . Discharge Plan Discharge Disposition Patient Disposition: 30 Still Patient Discharge Condition Condition: Fair Discharge Details Diagnosis: Paroxysmal atrial fibrillation with rapid ventricular response, Syncope Physicians Team ED Provider: Damien Graham Primary Care Provider: Hong Castro Attending Provider: Manav Forte Other Providers: Vamshi Ny ; Melvin Thakur Discharge Interventions Interventions: ED Discharge Assessment Last Done: 04/22/18 13:50 Status ED Status: Left Department Discharge Information Discharge Date/Time: 04/22/18 13:50
[2018-04-22 08:42] LABS: Alanine Aminotransferase 51 U/L (12-78); Albumin 3.5 g/dL (3.4-5.0); Anion Gap 10 meq/L (5-15); Aspartate Aminotransferase 25 U/L (15-37); Blood Urea Nitrogen 20 mg/dL (7-18); Calcium 8.4 mg/dL (8.5-10.1); Carbon Dioxide 29.8 meq/L (21.0-32.0); Chloride 103 meq/L (98-107); Glomerular Filtration Rate 49 mL/min (>89); Glucose,Random 138 mg/dL (74-106); Potassium 3.6 meq/L (3.5-5.1); Sodium 143 meq/L (136-145)
[2018-04-22 08:46] LABS: Alkaline Phosphatase 127 U/L (45-117); Total Protein 7.3 g/dL (6.4-8.2); Troponin I 0.04 ng/mL (0.02-0.05)
[2018-04-22] MEDS ORDERED: dilTIAZem Inj 125 MG in Sodium Chlor 0.9% Inj 100 ML IV.CONT PRN (08:46)
--- NOTE | 2018-04-22 10:36 | CT ---
EXAM DATE: 04/22/2018 10:22 AM EDT AGE/SEX: 77 years / Male INDICATIONS: Trauma, Head injury, Patient found on floor CLINICAL DATA: This is the patient's initial encounter. Patient reports that signs and symptoms have been present for 1 day and indicates a pain score of 0/10. MEDICAL/SURGICAL HISTORY: Hypertension. Congestive heart failure. Carcinoma, prostatic. Nephrecto my, right. RADIATION DOSE: 34.86 CTDI (mGy) COMPARISON: [facility], MRA BRAIN W/O CONTRAST, 02/06/2018. . TECHNIQUE: CT of the head without contrast. Using automated exposure control and adjustment of the mA and/or kV according to patient size, radiation dose was kept as low as reasonably achievable to ob tain optimal diagnostic quality images. DICOM format image data is available electronically for revi ew and comparison. FINDINGS: Cerebrum: The ventricles are normal for age. No evidence of midline shift, mass lesion, hemorrhage or acute infarction. No extraaxial fluid collections are seen. Posterior Fossa: The cerebellum and brainstem are intact. The 4th ventricle is midline. The cerebe llopontine angle is unremarkable. Extracranial: The visualized portion of the orbits is intact. Skull: The calvaria is intact. No evidence of skull fracture. CONCLUSION: 1. Negative CT Head non contrast. . Electronically signed by: Man Vazquez MD 04/22/2018 10:34 AM EDT
--- NOTE | 2018-04-22 10:39 | CT ---
EXAM DATE: 04/22/2018 10:33 AM EDT AGE/SEX: 77 years / Male INDICATIONS: Trauma, Head injury, Patient found on floor CLINICAL DATA: This is the patient's initial encounter. Patient reports that signs and symptoms have been present for 1 day and indicates a pain score of 7/10. MEDICAL/SURGICAL HISTORY: Carcinoma, prostatic. Congestive heart failure. Hypertension. thro at cancer Nephrectomy, right. Prostatectomy. RADIATION DOSE: 19.08 CTDI (mGy) COMPARISON: No prior exams available for comparison. TECHNIQUE: Contiguous axial images were obtained using helical multirow detector technique. The vol umetric data was post-processed with multiplanar reconstruction in oblique axial, sagittal, and coron al planes. Using automated exposure control and adjustment of the mA and/or kV according to patient s ize, radiation dose was kept as low as reasonably achievable to obtain optimal diagnostic quality jarret ges. DICOM format image data is available electronically for review and comparison. FINDINGS: No prevertebral soft tissue swelling or compression deformity. Cervicothoracic junction is approximat ed. Moderate disc space narrowing at C5-6 and C6-7 noted with anterior osteophytosis seen. Odontoid p rocess is intact. There are mild multilevel facet hypertrophic changes seen. No fractures are seen. N o compression deformities. CONCLUSION: 1. Multilevel degenerative changes are seen without fracture or listhesis. Electronically signed by: Man Vazquez MD 04/22/2018 10:38 AM EDT
--- NOTE | 2018-04-22 11:20 | P.HPIM ---
History of Present Illness Primary Care Physician: Hong Castro MD Chief Complaint: I feel weak. History of Present Illness: patient is a 77 y/o male with history of a-fib, hypertension/ orthostatic hypotension, prostate and throat cancer who presented to ER after he fell at home earlier today. he says that he went to bathroom this morning, then went back to bed but when he decided to get up, he couldn't and fell on the floor. he didn't pass out. he denies any chest pain, sob, focal weakness, slurred speech or headache but he says that he's feeling weak.upon arrival to ER he was in a-fib with RVR and started on Cardizem drip.he normally walks with a walker.he was admitted three months ago with syncope and orthostatic hypotension. he's being followed up by . Review of Systems All other systems reviewed negative except as stated in HPI PMFSH - History History Provided By: Patient - Medical History Medical History: Medical History (Last Updated 04/22/18 @ 08:23 by Agnes Barrientos RN) CHF (congestive heart failure) History of kidney cancer History of nephrectomy, unilateral History of prostate cancer Hypertension Throat cancer - Surgical History Surgical History: Surgical History (Last Updated 04/03/18 @ 12:52 by Javad Mcleod) Hx of cardiac cath Hx of colonoscopy Hx of hemorrhoidectomy Hx of prostatectomy - Family History Family History: Family History (Last Updated 04/22/18 @ 11:15 by Manav Forte MD) Brother Family history of cancer - Tobacco History Second Hand Smoke Exposure: No Tobacco Use In Past 30 Days: No Smoking Status: Never smoker - Alcohol History How Often Do You Have a Drink Containing Alcohol: Never - Substance Use History Substance History: No History of Abuse - Travel History Recent Travel in the [place] Within the Last 8 Weeks: No Recent Travel Out of the Country Within the Last 8 Weeks: No - Immunization History Tetanus Immunization: Unsure Hx Influenza Vaccine This Season: No Medications and Allergies Active Medications: Active Medications Diltiazem HCl 125 mg/ Sodium (Chloride) 125 mls @ 5 mls/hr IV.CONT TITRATE PRN ; Protocol PRN Reason: Per Protocol Last Admin: 04/22/18 10:24 Dose: 5 mg/hr, 5 mls/hr Allergies Allergy/AdvReac Type Severity Reaction Status Date / Time colchicine Allergy Severe Headache Verified 04/22/18 08:06 labetalol Allergy Unknown unknown Verified 04/22/18 08:06 Home Medications Medication Instructions Recorded Confirmed Type amlodipine 2.5 mg PO BID 04/03/18 04/22/18 History aspirin [Aspirin Low Dose] 81 mg PO DAILY 04/03/18 04/22/18 History fludrocortisone 0.1 mg PO DAILY 04/03/18 04/22/18 History lisinopril 5 mg PO DAILY 04/03/18 04/22/18 History metoprolol succinate 50 mg PO HS 04/03/18 04/22/18 History midodrine 2.5 mg PO TID 04/03/18 04/22/18 History fluoxetine 20 mg PO DAILY 04/22/18 04/22/18 History imipramine HCl 50 mg PO HS 04/22/18 04/22/18 History montelukast 10 mg PO QPM 04/22/18 04/22/18 History oxycodone-acetaminophen 1 tab PO Q4-6H PRN 04/22/18 04/22/18 History potassium chloride [Klor-Con 10 meq PO BID 04/22/18 04/22/18 History Sprinkle] sennosides [Senna Laxative] 8.6 mg PO BID 04/22/18 04/22/18 History sodium chloride 1 tab PO DAILY 04/22/18 04/22/18 History spironolactone 25 mg PO DAILY 04/22/18 04/22/18 History Exam Vital signs: Vital Signs 04/22/18 08:06 04/22/18 08:18 Temperature 98.1 F Pulse Rate 132 H Respiratory Rate 20 Blood Pressure 151/106 H Pulse Oximetry 95 95 Intake & Output 04/21/18 04/22/18 04/22/18 18:59 06:59 18:59 Weight 100.698 kg - Constitutional no acute distress - Routine Neck Exam Present: full ROM - Routine Respiratory Exam Present: CTA bilaterally - Routine Cardiovascular Exam Present: tachycardia, irregularly irregular - Routine Abdominal Exam Present: soft - Routine Extremities Exam Comments: no pedal edema. - Routine Neurological Exam Present: alert, oriented X3 Results - Labs CBC & Chem 7: 04/22/18 08:15 04/22/18 08:15 Labs: Short CBC 04/22/18 Range/Units 08:15 WBC 7.5 (4.0-11.0) th/mm3 Hgb 14.5 (13.0-17.0) gm/dL Hct 43.0 (39.0-51.0) % Plt Count 154 (150-450) th/mm3 BMP 04/22/18 08:15 Sodium 143 Potassium 3.6 Chloride 103 Carbon Dioxide 29.8 BUN 20 H Creatinine 1.40 H Calcium 8.4 L Cardiac Enzymes 04/22/18 Range/Units 08:15 Troponin I 0.04 (0.02-0.05) ng/mL Liver Function 04/22/18 Range/Units 08:15 Total Bilirubin 1.0 (0.2-1.0) mg/dL AST 25 (15-37) U/L ALT 51 (12-78) U/L Alkaline Phosphatase 127 H (45-117) U/L Albumin 3.5 (3.4-5.0) g/dL - Imaging Impressions Cervical Spine CT 04/22/18 08:41 CONCLUSION: 1. Multilevel degenerative changes are seen without fracture or listhesis. Head CT 04/22/18 08:41 CONCLUSION: 1. Negative CT Head non contrast. . Caprini VTE Risk Assessment Caprini VTE Risk Assessment: Moderate/High Risk (score >= 2) Caprini Risk Assessment Model: Point Value = 1 Point Value = 2 Point Value = 3 Point Value = 5 Age 41-60 Minor surgery BMI > 25 kg/m2 Swollen legs Varicose veins or History of unexplained or recurrent spontaneous Oral contraceptives or hormone replacement Sepsis (< 1 month) Serious lung disease, including pneumonia (< 1 month) Abnormal pulmonary function Acute myocardial infarction Congestive heart failure (< 1 month) History of inflammatory bowel disease Medical patient at bed rest Age 61-74 Arthroscopic surgery Major open surgery (> 45 min) Laparoscopic surgery (> 45 min) Malignancy Confined to bed (> 72 hours) Immobilizing plaster cast Central venous access Age >= 75 History of VTE Family history of VTE Factor V Leiden Prothrombin [id number] Lupus anticoagulant Anticardiolipin antibodies Elevated serum homocysteine Heparin-induced thrombocytopenia Other congenital or acquired thrombophilia Stroke (< 1 month) Elective arthroplasty Hip, pelvis, or leg fracture Acute spinal cord injury (< 1 month) Prophylaxis Regimen: Total Risk Factor Score Risk Level Prophylaxis Regimen 0-1 Low Early ambulation 2 Moderate Order ONE of the following: *Sequential Compression Device (SCD) *Heparin 5000 units SQ BID 3-4 Higher Order ONE of the following medications: *Heparin 5000 units SQ TID *Enoxaparin/Lovenox 40 mg SQ daily (WT < 150 kg, CrCl > 30 mL/min) *Enoxaparin/Lovenox 30 mg SQ daily (WT < 150 kg, CrCl > 10-29 mL/min) *Enoxaparin/Lovenox 30 mg SQ BID (WT < 150 kg, CrCl > 30 mL/min) AND/OR *Sequential Compression Device (SCD) 5 or more Highest Order ONE of the following medications: *Heparin 5000 units SQ TID (Preferred with Epidurals) *Enoxaparin/Lovenox 40 mg SQ daily (WT < 150 kg, CrCl > 30 mL/min) *Enoxaparin/Lovenox 30 mg SQ daily (WT < 150 kg, CrCl > 10-29 mL/min) *Enoxaparin/Lovenox 30 mg SQ BID (WT < 150 kg, CrCl > 30 mL/min) AND *Sequential Compression Device (SCD) Assessment and Plan - Plan A/P - atrial fibrillation with RVR started on Cardizem drip in ER- will resume metoprolol with close monitoring of BP- continue aspirin- will consult cardiology. had an echo three months ago with EF55% with mild LVH. -near-syncope with history of orthostatic hypotension will resume Florinef and Midodrine- will consult PT with orthostatic vitals when more stable- cardiology evaluation as noted above. -hypertension; hold Amlodipine- resume metoprolol- currently on Cardizem drip- will monitor and adjust the regimen as needed. -CKD- stable at his baseline- will monitor. -history of prostate and throat cancer- f/u as outpatient. -DVT prophylaxis with subq Lovenox. Discussed Condition With: ER physician, the patient and RN.
[2018-04-22] MEDS ORDERED: dilTIAZem 60 MG Tablet PO ONE (15:00)
--- NOTE | 2018-04-22 15:32 | ECG ---
Date Performed: 04/22/2018 Time Performed: 08:05:28 PTAGE: 77 years EKG: ATRIAL FIBRILLATION WITH RAPID VENTRICULAR RESPONSE MODERATE ST DEPRESSION ABNORMAL ECG Com pared to PREVIOUS TRACING , there is a rhythm change from sinus bradycardia to atrial fibrillation with rapid ventricular response. ST-T changes are new. PREVIOUS TRACIN02/06/2018 13.02 DOCTOR: Alvaro Matson Interpretating Date/Time 04/22/2018 15:30:21
--- NOTE | 2018-04-22 17:52 | MB ---
cc: Vamshi Ny MD DATE: 04/22/2018 REASON FOR CONSULTATION: Atrial fibrillation with RVR and labile hypertension. HISTORY OF PRESENT ILLNESS: Mr. Malhotra is a 77-year-old white gentleman, well known to me with a history of ASHD, hypertensive heart disease, severe autonomic insufficiency with orthostatic hypotension, which has been difficult to manage. The patient was doing reasonably well when I saw him recently in the office on 04/02/2018. No medication changes were made at that time. The patient administers his own medications at home and since the of his in July. His daughter is living with him, but he is reluctant to allow her participation in his medications. He says he was doing well up until last night. He awoke around 4 o'clock this morning to go to the bathroom, he got out of bed and fell down and was unable to get up. He denies any loss of consciousness, although there is possibly some reports from [facility] that he had some mental status changes and he had significant hypotension even on arrival here in the emergency room. It is uncertain whether or not he has been taking all of his medications as directed, and the patient admits to that. He brings with him here many medications dating back many years that he had at home. CURRENT MEDICATIONS: 1. Intravenous Cardizem infusion, 7.5 mg/hour. 2. He was started on Lovenox 40 mg subcutaneous daily. 2. Florinef 0.1 mg daily. 3. Prozac 20 mg daily. 4. Tofranil 50 mg daily. 5. Metoprolol succinate 50 mg daily. 6. Midodrine 2.5 mg t.i.d. 7. Singulair 10 mg at bedtime. 8. Potassium supplements 10 mEq b.i.d. MEDICATIONS LIST FROM RECENT OFFICE VISIT: 1. Lisinopril 5 mg daily. 2. Amlodipine 2.5 mg b.i.d. 3. Florinef 0.1 mg daily. 4. K-Dur 20 mEq b.i.d. 5. Midodrine 2.5 mg t.i.d. 6. Lipitor 20 mg daily. 7. Fish oil supplements 1000 mg daily. 8. Aspirin 81 mg daily. 9. Sublingual nitroglycerin p.r.n. 10. Allopurinol 100 mg daily. 11. Citalopram 20 mg daily. 12. Imipramine 50 mg daily. 13. Multivitamins daily. 14. Gabapentin. 15. Butalbital/acetaminophen/caffeine p.r.n. PAST MEDICAL HISTORY: As mentioned above, including ASHD, prostate cancer, throat cancer, hypertension, hypotension, orthostatic hypotension, renal cell carcinoma, osteoarthritis, depression, hearing deficit, migraine headaches, gout, GERD, chronic back pain. His most recent echocardiogram 02/07/2018 revealed a preserved left ventricular ejection fraction of 55-60%. PAST SURGICAL HISTORY: Includes status post nephrectomy, cardiac catheterization with PTCA of the mid and distal right coronary artery 02/04/2010, and PTCA of the posterolateral circumflex artery 12/03/2009, hemorrhoidectomy, prostatectomy, colonoscopy. ALLERGIES: 1. LABETALOL. 2. COLCHICINE. 3. HYDROCHLOROTHIAZIDE CAUSES DIARRHEA. FAMILY HISTORY: Noncontributory. SOCIAL HISTORY: The patient denies tobacco, alcohol or illicit drug use. Living conditions as mentioned above. REVIEW OF SYSTEMS: Denies lower extremity edema or claudication. Denies palpitations. Denies bleeding or clotting disorders. Denies any exertional or resting chest discomfort or dyspnea. Except for that mentioned in the HPI, complete 12-point review of systems is otherwise negative. PHYSICAL EXAMINATION: GENERAL: This is an elderly, weak appearing white male lying in bed in no distress at this time. VITAL SIGNS: Blood pressure is 147/93 mmHg, heart rate is 120 and irregular, respiratory rate 12. He is afebrile. Oxygen saturation 98% on room air. HEENT: Head is normocephalic and atraumatic. Pupils equal, round, reactive to light. Sclerae are anicteric. Extraocular movements intact. NECK: Supple. There is no adenopathy. There is no jugular venous distention at 45 degrees. Carotid upstrokes normal. No bruits. Thyroid normal. LUNGS: Clear. HEART: PMI is rapid and irregular. S1, S2. There are no gallops or rubs. No murmur. ABDOMEN: Benign. EXTREMITIES: No cyanosis, clubbing or edema. Perfusion is adequate in the upper and lower extremities. There are no femoral bruits. NEUROLOGIC: Chronic left facial droop noted. Otherwise, nonfocal. DIAGNOSTIC DATA: EKG from the emergency room shows a rapid atrial fibrillation, ventricular rate 143. Nonspecific ST abnormalities. Abnormal EKG. Telemetry monitoring at this time shows continued atrial fibrillation, rate in the 110-120 range, currently on intravenous Cardizem. ASSESSMENT AND PLAN: 1. New onset atrial fibrillation with rapid ventricular response. 2. Atherosclerotic heart disease, currently stable, status post multiple percutaneous coronary interventions - remote. 3. Hypertensive heart disease with labile hypertension. 4. Autonomic insufficiency with severe orthostatic hypotension and difficult management. 5. Organic brain syndrome. RECOMMENDATIONS: 1. Continue intravenous diltiazem for now for additional rate control. I have ordered an additional bolus. Continue 7.5 mg an hour infusion rate. I have discontinued his metoprolol since he was not taking that at home and has been mildly bradycardic when in sinus rhythm. For now, his lisinopril and amlodipine have been placed on hold until we see how his blood pressure responds to the diltiazem. We will continue the Florinef, potassium supplementation, midodrine, Lipitor. 2. At this point, in addition to his low-dose aspirin, we will proceed with the addition of Eliquis 5 mg p.o. twice daily for stroke prophylaxis. 3. Because of his significant autonomic insufficiency should have thigh-high support hose on for 24 hours. 4. Only sitting or standing blood pressure measurements for management of his hypertension. His supine pressures are always elevated and will lead to over medication and orthostatic symptoms. 5. I will follow him with you. Additionally, I am not sure whether his home situation is going to work out after discharge. Possibly home health care or an assisted care living facility may be more appropriate. That will be discussed further with the patient and his family. MD ANATOLY Gutierrez/carla , 12:55 PM , 01:11 PM
[2018-04-22] MEDS: dilTIAZem 60 MG Tablet PO SCH ×2 (18:20→21:14)
[2018-04-22] MEDS: Montelukast 10 MG Tablet PO SCH (18:58)
[2018-04-22] MEDS: Potassium Chloride 10 MEQ ER Capsule PO SCH (21:14)
[2018-04-23] MEDS: Acetaminophen 325 MG Tablet PO PRN (04:03)
[2018-04-23 04:49] LABS: Calcium 8.5 mg/dL (8.5-10.1); Carbon Dioxide 29.2 meq/L (21.0-32.0); Magnesium 2.1 mg/dL (1.5-2.5); Potassium 3.4 meq/L (3.5-5.1)
--- NOTE | 2018-04-23 07:49 | P.PNIM ---
Subjective Interval history: in no acute distress. denies chest pain or sob. HR better controlled. BP trend noted. d/w the RN. Physical Exam Vital signs: Vital Signs 04/22/18 08:06 04/22/18 08:18 04/22/18 08:30 Temperature 98.1 F Pulse Rate 132 H 118 H Respiratory Rate 20 13 Blood Pressure 151/106 H 165/103 H Pulse Oximetry 95 95 95 04/22/18 08:45 04/22/18 09:00 04/22/18 09:15 Temperature Pulse Rate 132 H 100 H 102 H Respiratory Rate 11 L 13 12 Blood Pressure 169/83 H 110/72 147/90 H Pulse Oximetry 94 L 94 L 95 04/22/18 09:30 04/22/18 09:45 04/22/18 10:00 Temperature Pulse Rate 102 H 134 H 140 H Respiratory Rate 21 14 12 Blood Pressure 148/108 H 143/103 H 148/107 H Pulse Oximetry 94 L 96 95 04/22/18 10:15 04/22/18 10:45 04/22/18 11:00 Temperature Pulse Rate 124 H 136 H Respiratory Rate 14 17 Blood Pressure 130/88 129/99 H 143/103 H Pulse Oximetry 97 04/22/18 11:15 04/22/18 11:30 04/22/18 11:45 Temperature Pulse Rate 132 H 142 H 136 H Respiratory Rate 15 16 12 Blood Pressure 151/89 H 143/94 H 157/112 H Pulse Oximetry 96 95 98 04/22/18 12:00 04/22/18 12:15 04/22/18 12:25 Temperature Pulse Rate 138 H 116 H 124 H Respiratory Rate 10 L 15 12 Blood Pressure 149/101 H 141/95 H 123/88 Pulse Oximetry 96 96 04/22/18 12:40 04/22/18 16:00 04/22/18 19:00 Temperature 97.9 F Pulse Rate 112 H 71 61 Respiratory Rate 14 15 Blood Pressure 103/63 132/89 Pulse Oximetry 98 04/22/18 20:00 04/22/18 21:00 04/22/18 22:00 Temperature 98.4 F Pulse Rate 52 L 50 L 50 L Respiratory Rate 16 Blood Pressure 112/77 Pulse Oximetry 04/22/18 23:00 04/22/18 23:45 04/23/18 00:00 Temperature 98.3 F Pulse Rate 49 L 50 L 49 L Respiratory Rate 16 Blood Pressure 159/88 H Pulse Oximetry 04/23/18 01:00 04/23/18 02:00 04/23/18 03:00 Temperature Pulse Rate 54 L 60 60 Respiratory Rate Blood Pressure Pulse Oximetry 04/23/18 04:00 04/23/18 05:00 04/23/18 06:00 Temperature 97.4 F L Pulse Rate 58 L 59 L 51 L Respiratory Rate 16 Blood Pressure 190/96 H Pulse Oximetry 04/23/18 07:00 Temperature Pulse Rate 47 L Respiratory Rate Blood Pressure Pulse Oximetry Intake & Output 04/22/18 04/23/18 04/23/18 18:59 06:59 18:59 Intake Total 200 / 200 120 / 120 75 / 75 Output Total 200 / 200 175 / 175 Balance 0 / 0 -55 / -55 75 / 75 Weight 96.615 kg 96 kg Intake: IV 75 / 75 Cardizem Inj 125 MG In NS Inj 75 / 75 100 ML @ 5 MG/HR 5 mls/hr IV. CONT TITRATE PRN Rx#:[id number] Oral 200 / 200 120 / 120 Output: Urine 200 / 200 175 / 175 Other: Date of Last Bowel Movement 04/22/18 Weight On Admission 96.615 kg - Constitutional no acute distress - Routine Respiratory Exam Present: CTA bilaterally - Routine Cardiovascular Exam Present: irregularly irregular - Routine Abdominal Exam Present: soft - Routine Extremities Exam Comments: no pedal edema. - Routine Neurological Exam Present: alert, oriented X3 Results - Labs CBC & Chem 7: 04/22/18 08:15 04/23/18 03:47 Laboratory Results - last 24 hr 04/22/18 04/22/18 04/23/18 08:15 08:15 03:47 WBC 7.5 RBC 4.44 L Hgb 14.5 Hct 43.0 MCV 96.8 MCH 32.6 MCHC 33.7 RDW 13.8 Plt Count 154 MPV 7.6 Neut % (Auto) 72.3 H Lymph % (Auto) 21.0 [place] % (Auto) 6.5 Eos % (Auto) 0.0 Baso % (Auto) 0.2 Neut # (Auto) 5.4 Lymph # (Auto) 1.6 [place] # (Auto) 0.5 Eos # (Auto) 0.0 Baso # (Auto) 0.0 WBC Differential . Differential Comment Auto diff final Sodium 143 144 Potassium 3.6 3.4 L Chloride 103 105 Carbon Dioxide 29.8 29.2 Anion Gap 10 10 BUN 20 H 22 H Creatinine 1.40 H 1.11 Estimated GFR 49 L 64 L Random Glucose 138 H 118 H Calcium 8.4 L 8.5 Magnesium 2.1 Total Bilirubin 1.0 AST 25 ALT 51 Alkaline Phosphatase 127 H Troponin I 0.04 Total Protein 7.3 Albumin 3.5 - Imaging Impressions Cervical Spine CT 04/22/18 08:41 CONCLUSION: 1. Multilevel degenerative changes are seen without fracture or listhesis. Head CT 04/22/18 08:41 CONCLUSION: 1. Negative CT Head non contrast. . Assessment and Plan - Plan A/P - atrial fibrillation with RVR- now HR controlled. off Cardizem drip- continue with oral Cardizem- continue aspirin and will add Eliquis. had an echo three months ago with EF55% with mild LVH. cardiology consult appreciated. -near-syncope with history of orthostatic hypotension will continue Florinef and Midodrine- will consult PT - cardiology evaluation as noted above. -hypertension; hold Amlodipine- continue Cardizem- Metoprolol was dc'ed per cardiology.will monitor and adjust the regimen as needed. -CKD- stable at his baseline- will monitor. -history of prostate and throat cancer- f/u as outpatient. -DVT prophylaxis ; stop Lovenox and start on Eliquis. Discharge Planning: within the next 24-48 hrs if stable and cleared by Cardiology- pending PT evaluation; might need rehab.
[2018-04-23] MEDS ORDERED: Potassium Chloride 25 MEQ Effervescent Tablet PO ONE (08:00)
[2018-04-23] MEDS: FLUoxetine 20 MG Capsule PO SCH (08:35)
[2018-04-23] MEDS: dilTIAZem 60 MG Tablet PO SCH ×4 (08:35→20:22)
[2018-04-23] MEDS: Potassium Chloride 10 MEQ ER Capsule PO SCH ×2 (08:36→20:21)
[2018-04-23] MEDS ORDERED: Enoxaparin Inj 40 MG/0.4 ML Syringe SQ SCH (09:00)
--- NOTE | 2018-04-23 09:38 | P.PNCA ---
Subjective Interval history: Doing much better. No distress. BP high side. Back in NSR. Physical Exam Vital signs: Vital Signs 04/22/18 09:45 04/22/18 10:00 04/22/18 10:15 Temperature Pulse Rate 134 H 140 H Respiratory Rate 14 12 Blood Pressure 143/103 H 148/107 H 130/88 Pulse Oximetry 96 95 04/22/18 10:45 04/22/18 11:00 04/22/18 11:15 Temperature Pulse Rate 124 H 136 H 132 H Respiratory Rate 14 17 15 Blood Pressure 129/99 H 143/103 H 151/89 H Pulse Oximetry 97 96 04/22/18 11:30 04/22/18 11:45 04/22/18 12:00 Temperature Pulse Rate 142 H 136 H 138 H Respiratory Rate 16 12 10 L Blood Pressure 143/94 H 157/112 H 149/101 H Pulse Oximetry 95 98 96 04/22/18 12:15 04/22/18 12:25 04/22/18 12:40 Temperature Pulse Rate 116 H 124 H 112 H Respiratory Rate 15 12 14 Blood Pressure 141/95 H 123/88 103/63 Pulse Oximetry 96 98 04/22/18 16:00 04/22/18 19:00 04/22/18 20:00 Temperature 97.9 F 98.4 F Pulse Rate 71 61 52 L Respiratory Rate 15 16 Blood Pressure 132/89 112/77 Pulse Oximetry 04/22/18 21:00 04/22/18 22:00 04/22/18 23:00 Temperature Pulse Rate 50 L 50 L 49 L Respiratory Rate Blood Pressure Pulse Oximetry 04/22/18 23:45 04/23/18 00:00 04/23/18 01:00 Temperature 98.3 F Pulse Rate 50 L 49 L 54 L Respiratory Rate 16 Blood Pressure 159/88 H Pulse Oximetry 04/23/18 02:00 04/23/18 03:00 04/23/18 04:00 Temperature 97.4 F L Pulse Rate 60 60 58 L Respiratory Rate 16 Blood Pressure 190/96 H Pulse Oximetry 04/23/18 05:00 04/23/18 06:00 04/23/18 07:00 Temperature Pulse Rate 59 L 51 L 47 L Respiratory Rate Blood Pressure Pulse Oximetry 04/23/18 08:11 04/23/18 09:18 Temperature 97.5 F L Pulse Rate 59 L Respiratory Rate 17 Blood Pressure 181/103 H Pulse Oximetry 96 96 Intake & Output 04/22/18 04/23/18 04/23/18 18:59 06:59 18:59 Intake Total 200 / 200 120 / 120 75 / 75 Output Total 200 / 200 175 / 175 Balance 0 / 0 -55 / -55 75 / 75 Weight 96.615 kg 96 kg Intake: IV 75 / 75 Cardizem Inj 125 MG In NS Inj 75 / 75 100 ML @ 5 MG/HR 5 mls/hr IV. CONT TITRATE PRN Rx#:[id number] Oral 200 / 200 120 / 120 Output: Urine 200 / 200 175 / 175 Other: Date of Last Bowel Movement 04/22/18 04/21/18 Weight On Admission 96.615 kg - Constitutional no acute distress - Routine Respiratory Exam Present: CTA bilaterally - Routine Cardiovascular Exam Present: RRR, S1, S2 - Routine Extremities Exam Comments: No C/C/E Assessment and Plan - Assessment (1) Paroxysmal atrial fibrillation with rapid ventricular response Code(s): I48.0 - Paroxysmal atrial fibrillation Status: Acute (2) Autonomic instability Code(s): G90.9 - Disorder of the autonomic nervous system, unspecified Status : Acute (3) Orthostatic hypotension Code(s): I95.1 - Orthostatic hypotension Status: Acute (4) Hypertension Code(s): I10 - Essential (primary) hypertension Status: Acute (5) CAD (coronary artery disease) Code(s): I25.10 - Atherosclerotic heart disease of [place] coronary artery without angina pectoris Status: Acute - Plan Restart Lisinopril 5 mg po daily. Continue diltiezem and monitor tele for pauses or symtomatic roldan. Increase activity with assitance. Record and treat BP taken in upright position only. Discussed need for home health care or ACF upon discharge. Following.
[2018-04-23] MEDS: Lisinopril 5 MG Tablet PO SCH (10:12)
[2018-04-23] MEDS: Montelukast 10 MG Tablet PO SCH (17:47)
[2018-04-24] MEDS ORDERED: Metoprolol Inj 5 MG/5 ML Vial IV.PUSH ONE (03:24)
[2018-04-24] MEDS ORDERED: Metoprolol Inj 5 MG/5 ML Vial ONE (03:25)
--- NOTE | 2018-04-24 08:09 | P.PNIM ---
Subjective Interval history: f/u; a-fib in no acute distress. complaining of sore throat and had some hematuria. no chest pain or sob. d/w the RN. Physical Exam Vital signs: Vital Signs 04/23/18 08:11 04/23/18 09:00 04/23/18 09:18 Temperature 97.5 F L Pulse Rate 59 L 80 Respiratory Rate 17 Blood Pressure 181/103 H Pulse Oximetry 96 96 04/23/18 10:00 04/23/18 10:11 04/23/18 11:00 Temperature Pulse Rate 80 54 L Respiratory Rate Blood Pressure 175/103 H Pulse Oximetry 04/23/18 11:04 04/23/18 12:00 04/23/18 13:00 Temperature 98.1 F Pulse Rate 59 L 58 L 50 L Respiratory Rate 17 Blood Pressure 141/82 H Pulse Oximetry 95 04/23/18 14:00 04/23/18 15:00 04/23/18 16:00 Temperature 98.4 F Pulse Rate 52 L 51 L 52 L Respiratory Rate 17 Blood Pressure 161/80 H Pulse Oximetry 93 L 04/23/18 17:08 04/23/18 18:00 04/23/18 19:00 Temperature Pulse Rate 60 56 L 51 L Respiratory Rate Blood Pressure Pulse Oximetry 04/23/18 20:00 04/23/18 20:09 04/23/18 20:27 Temperature 98.1 F Pulse Rate 50 L 52 L Respiratory Rate 18 Blood Pressure 174/96 H Pulse Oximetry 96 96 04/23/18 21:00 04/23/18 22:00 04/23/18 23:00 Temperature Pulse Rate 56 L 56 L 54 L Respiratory Rate Blood Pressure Pulse Oximetry 04/23/18 23:19 04/24/18 00:12 04/24/18 01:00 Temperature 98.1 F Pulse Rate 66 51 L 62 Respiratory Rate 18 Blood Pressure 158/98 H Pulse Oximetry 97 04/24/18 02:00 04/24/18 03:00 04/24/18 04:00 Temperature 98.2 F Pulse Rate 50 L 120 H 56 L Respiratory Rate 20 Blood Pressure 158/103 H Pulse Oximetry 97 04/24/18 05:00 04/24/18 06:00 04/24/18 07:00 Temperature 97.4 F L Pulse Rate 52 L 55 L 54 L Respiratory Rate 16 Blood Pressure 211/109 H Pulse Oximetry 99 04/24/18 07:45 04/24/18 07:48 Temperature Pulse Rate Respiratory Rate Blood Pressure 200/110 H 117/70 Pulse Oximetry Intake & Output 04/23/18 04/24/18 04/24/18 18:59 06:59 18:59 Intake Total 795 / 795 120 / 120 Output Total 380 / 380 Balance 795 / 795 -260 / -260 Weight 94 kg Intake: IV 75 / 75 Cardizem Inj 125 MG In NS Inj 75 / 75 100 ML @ 5 MG/HR 5 mls/hr IV. CONT TITRATE PRN Rx#:[id number] Oral 720 / 720 120 / 120 Output: Urine 380 / 380 Other: # Voids 6 Date of Last Bowel Movement 04/21/18 04/21/18 04/21/18 - Constitutional no acute distress - Routine Respiratory Exam Present: CTA bilaterally - Routine Cardiovascular Exam Present: irregularly irregular - Routine Abdominal Exam Present: soft - Routine Extremities Exam Comments: no pedal edema. - Routine Neurological Exam Present: alert, oriented X3 Results - Labs CBC & Chem 7: 04/22/18 08:15 04/23/18 03:47 Assessment and Plan - Plan A/P - atrial fibrillation with RVR- now HR controlled. off Cardizem drip- continue with oral Cardizem- continue aspirin -initially added Eliquis but this will be held for possible pacemaker placement later this week. had an echo three months ago with EF55% with mild LVH. cardiology following- d/w today. -near-syncope with history of orthostatic hypotension will continue Florinef and Midodrine- consulted PT - cardiology evaluation as noted above. -hypertension; hold Amlodipine- continue Cardizem-lisinopril was added- Metoprolol was dc'ed per cardiology.will monitor and adjust the regimen as needed. -CKD- stable at his baseline- will monitor. -history of prostate and throat cancer- f/u as outpatient. continue with pain control. evaluated by ST; recommended mechanical soft diet. -Hematuria- Eliquis will be held- will continue to monitor. -DVT prophylaxis ; started on Eliquis ( will be held for possible pacemaker placement). Discharge Planning: dc to rehab towards the end of the week- might need pacemaker placement. d/w today.
--- NOTE | 2018-04-24 08:17 | P.PNCA ---
Subjective Interval history: Very weak and unsteady on his feet. Paroxysmal A. fib w/rvr lat night was given IV lopressor X 1. Now in SB. Complaining of painful throat, swallowing. No lightheadedness or syncopy. BP high supine and sitting but excellent while standing. Physical Exam Vital signs: Vital Signs 04/23/18 08:11 04/23/18 09:00 04/23/18 09:18 Temperature 97.5 F L Pulse Rate 59 L 80 Respiratory Rate 17 Blood Pressure 181/103 H Pulse Oximetry 96 96 04/23/18 10:00 04/23/18 10:11 04/23/18 11:00 Temperature Pulse Rate 80 54 L Respiratory Rate Blood Pressure 175/103 H Pulse Oximetry 04/23/18 11:04 04/23/18 12:00 04/23/18 13:00 Temperature 98.1 F Pulse Rate 59 L 58 L 50 L Respiratory Rate 17 Blood Pressure 141/82 H Pulse Oximetry 95 04/23/18 14:00 04/23/18 15:00 04/23/18 16:00 Temperature 98.4 F Pulse Rate 52 L 51 L 52 L Respiratory Rate 17 Blood Pressure 161/80 H Pulse Oximetry 93 L 04/23/18 17:08 04/23/18 18:00 04/23/18 19:00 Temperature Pulse Rate 60 56 L 51 L Respiratory Rate Blood Pressure Pulse Oximetry 04/23/18 20:00 04/23/18 20:09 04/23/18 20:27 Temperature 98.1 F Pulse Rate 50 L 52 L Respiratory Rate 18 Blood Pressure 174/96 H Pulse Oximetry 96 96 04/23/18 21:00 04/23/18 22:00 04/23/18 23:00 Temperature Pulse Rate 56 L 56 L 54 L Respiratory Rate Blood Pressure Pulse Oximetry 04/23/18 23:19 04/24/18 00:12 04/24/18 01:00 Temperature 98.1 F Pulse Rate 66 51 L 62 Respiratory Rate 18 Blood Pressure 158/98 H Pulse Oximetry 97 04/24/18 02:00 04/24/18 03:00 04/24/18 04:00 Temperature 98.2 F Pulse Rate 50 L 120 H 56 L Respiratory Rate 20 Blood Pressure 158/103 H Pulse Oximetry 97 04/24/18 05:00 04/24/18 06:00 04/24/18 07:00 Temperature 97.4 F L Pulse Rate 52 L 55 L 54 L Respiratory Rate 16 Blood Pressure 211/109 H Pulse Oximetry 99 04/24/18 07:45 04/24/18 07:48 Temperature Pulse Rate Respiratory Rate Blood Pressure 200/110 H 117/70 Pulse Oximetry Intake & Output 04/23/18 04/24/18 04/24/18 18:59 06:59 18:59 Intake Total 795 / 795 120 / 120 Output Total 380 / 380 Balance 795 / 795 -260 / -260 Weight 94 kg Intake: IV 75 / 75 Cardizem Inj 125 MG In NS Inj 75 / 75 100 ML @ 5 MG/HR 5 mls/hr IV. CONT TITRATE PRN Rx#:[id number] Oral 720 / 720 120 / 120 Output: Urine 380 / 380 Other: # Voids 6 Date of Last Bowel Movement 04/21/18 04/21/18 04/21/18 - Constitutional cooperative - Routine Neck Exam Present: supple - Routine Respiratory Exam Present: CTA bilaterally - Routine Cardiovascular Exam Present: RRR, S1, S2, bradycardia - Routine Extremities Exam Comments: No edema. - Routine Neurological Exam Present: alert, oriented X3 Assessment and Plan - Assessment (1) Paroxysmal atrial fibrillation with rapid ventricular response Code(s): I48.0 - Paroxysmal atrial fibrillation Status: Acute (2) Autonomic instability Code(s): G90.9 - Disorder of the autonomic nervous system, unspecified Status : Acute (3) Orthostatic hypotension Code(s): I95.1 - Orthostatic hypotension Status: Acute (4) Hypertension Code(s): I10 - Essential (primary) hypertension Status: Acute (5) CAD (coronary artery disease) Code(s): I25.10 - Atherosclerotic heart disease of [place] coronary artery without angina pectoris Status: Acute (6) Odynophagia Code(s): R13.10 - Dysphagia, unspecified Status: Acute (7) Hematuria Code(s): R31.9 - Hematuria, unspecified Status: Acute - Plan Start flecainide 50 mg BID, observe tele. Change cardizem to CD 240 mg po daily. Hold Eliquis for now due to hematuria and possible need for PPM. Record and treat BP taken in standing position only. Discussed case, need for home health care or ACF upon discharge with patient and Dr. Forte. Discussed changes with staff educator. Following.
[2018-04-24] MEDS: Potassium Chloride 10 MEQ ER Capsule PO SCH ×2 (09:32→20:40)
[2018-04-24] MEDS: Lisinopril 5 MG Tablet PO SCH (09:33)
[2018-04-24] MEDS: FLUoxetine 20 MG Capsule PO SCH (09:35)
[2018-04-24] MEDS: Flecainide 100 MG Tablet PO SCH ×2 (11:18→20:40)
[2018-04-24] MEDS: dilTIAZem CD 240 MG Capsule PO SCH (11:18)
[2018-04-24] MEDS: Montelukast 10 MG Tablet PO SCH (17:28)
[2018-04-24 22:42] LABS: Bilirubin,Urine Negative (Negative); Clarity,Urine Clear (Clear); Color,Urine Yellow (Yellw/Straw); Glucose,Urine (UA) Negative (Negative); Leukocyte Esterase,Urine Negative (Negative); Mucus,Urine Few /lpf (Occasional); Nitrite,Urine Negative (Negative); Specific Gravity,Urine 1.018 (1.002-1.035); Squamous Epithelial Cell,Urine <1 /hpf (0-5)
[2018-04-25 05:35] LABS: Calcium 8.4 mg/dL (8.5-10.1); Carbon Dioxide 29.5 meq/L (21.0-32.0); Potassium 3.6 meq/L (3.5-5.1)
--- NOTE | 2018-04-25 07:33 | ECG ---
Date Performed: 04/25/2018 Time Performed: 04:38:54 PTAGE: 77 years EKG: Sinus bradycardia Inferior infarct - age undetermined Abnormal ECG PREVIOUS TRACING : 04/22/2018 08.05 DOCTOR: Anthony Willams Interpretating Date/Time 04/25/2018 07:31:34
--- NOTE | 2018-04-25 08:13 | P.PNCA ---
Subjective Interval history: c/o painfull swallowing. Hemodymaics more stable. Sinus roldan no recurrent atrial fib. + Hematuria Physical Exam Vital signs: Vital Signs 04/24/18 09:00 04/24/18 10:00 04/24/18 11:00 Temperature 97.6 F Pulse Rate 57 L 55 L 61 Respiratory Rate 17 Blood Pressure 138/96 H Pulse Oximetry 97 04/24/18 11:18 04/24/18 12:00 04/24/18 13:00 Temperature Pulse Rate 59 L 70 Respiratory Rate 16 Blood Pressure Pulse Oximetry 04/24/18 14:00 04/24/18 15:00 04/24/18 15:02 Temperature Pulse Rate 53 L 54 L Respiratory Rate 16 Blood Pressure 203/102 H 174/80 H Pulse Oximetry 97 04/24/18 15:05 04/24/18 16:00 04/24/18 17:00 Temperature Pulse Rate 54 L 52 L Respiratory Rate Blood Pressure 80/52 L Pulse Oximetry 04/24/18 17:29 04/24/18 18:00 04/24/18 19:00 Temperature Pulse Rate 58 L 56 L Respiratory Rate 18 Blood Pressure Pulse Oximetry 04/24/18 20:00 04/24/18 20:25 04/24/18 21:00 Temperature 97.8 F Pulse Rate 52 L 60 50 L Respiratory Rate 20 Blood Pressure 151/93 H Pulse Oximetry 97 04/24/18 22:00 04/24/18 23:00 04/24/18 23:36 Temperature 97.6 F Pulse Rate 49 L 53 L 62 Respiratory Rate 18 Blood Pressure 108/73 Pulse Oximetry 97 04/25/18 00:00 04/25/18 01:00 04/25/18 02:00 Temperature Pulse Rate 52 L 56 L 58 L Respiratory Rate Blood Pressure Pulse Oximetry 04/25/18 03:00 04/25/18 04:00 04/25/18 05:00 Temperature 97.8 F Pulse Rate 52 L 64 50 L Respiratory Rate 19 Blood Pressure 147/95 H Pulse Oximetry 98 04/25/18 06:00 Temperature Pulse Rate 52 L Respiratory Rate Blood Pressure Pulse Oximetry Intake & Output 04/24/18 04/25/18 04/25/18 18:59 06:59 18:59 Intake Total 720 / 720 240 / 240 Output Total 500 / 500 300 / 300 Balance 220 / 220 -60 / -60 Weight 94.5 kg Intake: Oral 720 / 720 240 / 240 Output: Urine 500 / 500 300 / 300 Other: Date of Last Bowel Movement 04/21/18 04/21/18 - Constitutional no acute distress - Routine Respiratory Exam Present: CTA bilaterally - Routine Cardiovascular Exam Present: RRR, S1, S2, bradycardia - Routine Extremities Exam Comments: No C/C/E - Routine Psychiatric Exam Present: depressed Assessment and Plan - Assessment (1) Paroxysmal atrial fibrillation with rapid ventricular response Code(s): I48.0 - Paroxysmal atrial fibrillation Status: Acute (2) Autonomic instability Code(s): G90.9 - Disorder of the autonomic nervous system, unspecified Status : Acute (3) Orthostatic hypotension Code(s): I95.1 - Orthostatic hypotension Status: Acute (4) Hypertension Code(s): I10 - Essential (primary) hypertension Status: Acute (5) CAD (coronary artery disease) Code(s): I25.10 - Atherosclerotic heart disease of [place] coronary artery without angina pectoris Status: Acute (6) Odynophagia Code(s): R13.10 - Dysphagia, unspecified Status: Acute (7) Hematuria Code(s): R31.9 - Hematuria, unspecified Status: Acute - Plan Continue flecainide 50 mg BID, observe tele. Hold Eliquis for now due to hematuria and possible need for PPM. Will ask urology to evaluate his hematuria. Increase Kdur 20 meq BID. Record and treat BP taken in standing position only. Discussed case, need for home health care or ACF upon discharge with patient and Dr. Forte. Discussed changes with cruise staff member. Following.
--- NOTE | 2018-04-25 08:21 | P.PNIM ---
Subjective Interval history: f/u; a-fib in no acute distress. denies chest pain or sob. has some sore throat- still with hematuria. d/w the RN. Physical Exam Vital signs: Vital Signs 04/24/18 09:00 04/24/18 10:00 04/24/18 11:00 Temperature 97.6 F Pulse Rate 57 L 55 L 61 Respiratory Rate 17 Blood Pressure 138/96 H Pulse Oximetry 97 04/24/18 11:18 04/24/18 12:00 04/24/18 13:00 Temperature Pulse Rate 59 L 70 Respiratory Rate 16 Blood Pressure Pulse Oximetry 04/24/18 14:00 04/24/18 15:00 04/24/18 15:02 Temperature Pulse Rate 53 L 54 L Respiratory Rate 16 Blood Pressure 203/102 H 174/80 H Pulse Oximetry 97 04/24/18 15:05 04/24/18 16:00 04/24/18 17:00 Temperature Pulse Rate 54 L 52 L Respiratory Rate Blood Pressure 80/52 L Pulse Oximetry 04/24/18 17:29 04/24/18 18:00 04/24/18 19:00 Temperature Pulse Rate 58 L 56 L Respiratory Rate 18 Blood Pressure Pulse Oximetry 04/24/18 20:00 04/24/18 20:25 04/24/18 21:00 Temperature 97.8 F Pulse Rate 52 L 60 50 L Respiratory Rate 20 Blood Pressure 151/93 H Pulse Oximetry 97 04/24/18 22:00 04/24/18 23:00 04/24/18 23:36 Temperature 97.6 F Pulse Rate 49 L 53 L 62 Respiratory Rate 18 Blood Pressure 108/73 Pulse Oximetry 97 04/25/18 00:00 04/25/18 01:00 04/25/18 02:00 Temperature Pulse Rate 52 L 56 L 58 L Respiratory Rate Blood Pressure Pulse Oximetry 04/25/18 03:00 04/25/18 04:00 04/25/18 05:00 Temperature 97.8 F Pulse Rate 52 L 64 50 L Respiratory Rate 19 Blood Pressure 147/95 H Pulse Oximetry 98 04/25/18 06:00 Temperature Pulse Rate 52 L Respiratory Rate Blood Pressure Pulse Oximetry Intake & Output 04/24/18 04/25/18 04/25/18 18:59 06:59 18:59 Intake Total 720 / 720 240 / 240 Output Total 500 / 500 300 / 300 Balance 220 / 220 -60 / -60 Weight 94.5 kg Intake: Oral 720 / 720 240 / 240 Output: Urine 500 / 500 300 / 300 Other: Date of Last Bowel Movement 04/21/18 04/21/18 - Constitutional no acute distress - Routine Respiratory Exam Present: CTA bilaterally - Routine Cardiovascular Exam Present: RRR - Routine Abdominal Exam Present: soft - Routine Extremities Exam Comments: no pedal edema. - Routine Neurological Exam Present: alert, oriented X3 Results - Labs CBC & Chem 7: 04/22/18 08:15 04/25/18 04:44 Laboratory Results - last 24 hr 04/24/18 04/25/18 21:00 04:44 Sodium 142 Potassium 3.6 Chloride 102 Carbon Dioxide 29.5 Anion Gap 11 BUN 21 H Creatinine 1.19 Estimated GFR 59 L Random Glucose 119 H Calcium 8.4 L Urine Color Yellow Urine Clarity Clear Urine pH 6.0 Ur Specific [place] 1.018 Urine Protein 30 H Urine Glucose (UA) Negative Urine Ketones Negative Urine Occult Blood Moderate H Urine Nitrate Negative Urine Bilirubin Negative Urine Urobilinogen 2.0 H Ur Leukocyte Esterase Negative Urine RBC 4 H Urine WBC 1 Ur Squamous Epith Cells <1 Urine Mucus Few H Ur Microscopic Review Not Reportable Assessment and Plan - Plan A/P - atrial fibrillation with RVR- now back in sinus rhythm continue with oral Cardizem- continue aspirin -initially added Eliquis but this is on hold because of Hematuria. started on Flecainide. had an echo three months ago with EF55% with mild LVH. cardiology following- d/w today. -near-syncope with history of orthostatic hypotension will continue Florinef and Midodrine- consulted PT - cardiology evaluation as noted above. -hypertension; stopped Amlodipine- continue Cardizem-lisinopril was added- Metoprolol was dc'ed per cardiology.will monitor and adjust the regimen as needed. -CKD- stable at his baseline- will monitor. -history of prostate and throat cancer- f/u as outpatient. continue with pain control. evaluated by ST; recommended mechanical soft diet. -Hematuria- Eliquis on hold- Urology consulted- will continue to monitor. -DVT prophylaxis ; started on Eliquis ( on hold for Hematuria). Discharge Planning: d/c to rehab; SNF vs [facility] - within the next 24 hrs- pending Urology evaluation. d/w the patient, RN and .
[2018-04-25] MEDS: Flecainide 100 MG Tablet PO SCH ×2 (09:15→21:33)
[2018-04-25] MEDS: Potassium Chloride 10 MEQ ER Capsule PO SCH ×2 (09:53→21:35)
[2018-04-25] MEDS: dilTIAZem CD 240 MG Capsule PO SCH (09:54)
[2018-04-25] MEDS: Lisinopril 5 MG Tablet PO SCH (10:00)
[2018-04-25] MEDS: FLUoxetine 20 MG Capsule PO SCH (10:00)
[2018-04-26] MEDS ORDERED: Lisinopril 5 MG Tablet PO SCH (04:57)
--- NOTE | 2018-04-26 07:30 | P.PNCA ---
Subjective Interval history: Generalized weakness. Unsteady on his feet without assistance. Standing BP low side. No hematuria off Eliquis. Still waiting for urologic evaluation. Physical Exam Vital signs: Vital Signs 04/25/18 08:00 04/25/18 09:00 04/25/18 10:00 Temperature Pulse Rate 55 L 58 L 58 L Respiratory Rate Blood Pressure Pulse Oximetry 04/25/18 11:00 04/25/18 12:00 04/25/18 13:00 Temperature 97.9 F Pulse Rate 66 62 58 L Respiratory Rate 18 Blood Pressure 90/51 L Pulse Oximetry 96 04/25/18 14:00 04/25/18 15:00 04/25/18 16:00 Temperature 98.4 F Pulse Rate 54 L 54 L 54 L Respiratory Rate 18 Blood Pressure 98/55 L Pulse Oximetry 96 04/25/18 17:00 04/25/18 18:00 04/25/18 19:00 Temperature 98 F Pulse Rate 58 L 54 L 52 L Respiratory Rate 16 Blood Pressure 143/97 H Pulse Oximetry 96 04/25/18 20:00 04/25/18 21:00 04/25/18 22:00 Temperature Pulse Rate 52 L 56 L 54 L Respiratory Rate Blood Pressure Pulse Oximetry 04/25/18 23:00 04/26/18 00:00 04/26/18 01:00 Temperature 97.4 F L Pulse Rate 58 L 54 L 52 L Respiratory Rate 20 Blood Pressure 80/57 L Pulse Oximetry 97 04/26/18 02:00 04/26/18 03:00 04/26/18 04:00 Temperature 97.2 F L Pulse Rate 52 L 56 L 71 Respiratory Rate 18 Blood Pressure 93/64 L Pulse Oximetry 96 04/26/18 05:00 04/26/18 06:00 Temperature Pulse Rate 52 L 52 L Respiratory Rate Blood Pressure Pulse Oximetry Intake & Output 04/25/18 04/26/18 04/26/18 18:59 06:59 18:59 Intake Total 720 / 720 Output Total 700 / 700 Balance 20 20 Weight 95.5 kg Intake: Oral 720 / 720 Output: Urine 700 / 700 Other: Date of Last Bowel Movement 04/21/18 # Bowel Movements 0 - Constitutional no acute distress - Routine Respiratory Exam Present: CTA bilaterally - Routine Cardiovascular Exam Present: RRR, S1, S2, bradycardia - Routine Extremities Exam Comments: No C/C/E - Routine Psychiatric Exam Present: cooperative, depressed Assessment and Plan - Assessment (1) Paroxysmal atrial fibrillation with rapid ventricular response Code(s): I48.0 - Paroxysmal atrial fibrillation Status: Acute (2) Autonomic instability Code(s): G90.9 - Disorder of the autonomic nervous system, unspecified Status : Acute (3) Orthostatic hypotension Code(s): I95.1 - Orthostatic hypotension Status: Acute (4) Hypertension Code(s): I10 - Essential (primary) hypertension Status: Acute (5) CAD (coronary artery disease) Code(s): I25.10 - Atherosclerotic heart disease of [place] coronary artery without angina pectoris Status: Acute (6) Odynophagia Code(s): R13.10 - Dysphagia, unspecified Status: Acute (7) Hematuria Code(s): R31.9 - Hematuria, unspecified Status: Acute - Plan Maintaining sinus roldan. No afib seen in 48 hours. Continue flecainide 50 mg BID. Eliquis remains on hold due to hematuria awaiting urology input. Restart if OK with urology. OK to d/c to ACF from my standpoint. Record and treat BP taken in standing position only. Maintain standing systolic pressure 90-110, Decrease Losartan 2.5 mg po daily. Discussed case, need for home health care or ACF upon discharge with patient and Dr. Forte. Discussed changes with staff training and development manager.
--- NOTE | 2018-04-26 07:56 | P.PNIM ---
Subjective Interval history: f/u; a-fib in no acute distress. throat pain is better today. complaining of some pain to the left shoulder. hematuria has resolved. d/w the RN. Physical Exam Vital signs: Vital Signs 04/25/18 08:00 04/25/18 09:00 04/25/18 10:00 Temperature Pulse Rate 55 L 58 L 58 L Respiratory Rate Blood Pressure Pulse Oximetry 04/25/18 11:00 04/25/18 12:00 04/25/18 13:00 Temperature 97.9 F Pulse Rate 66 62 58 L Respiratory Rate 18 Blood Pressure 90/51 L Pulse Oximetry 96 04/25/18 14:00 04/25/18 15:00 04/25/18 16:00 Temperature 98.4 F Pulse Rate 54 L 54 L 54 L Respiratory Rate 18 Blood Pressure 98/55 L Pulse Oximetry 96 04/25/18 17:00 04/25/18 18:00 04/25/18 19:00 Temperature 98 F Pulse Rate 58 L 54 L 52 L Respiratory Rate 16 Blood Pressure 143/97 H Pulse Oximetry 96 04/25/18 20:00 04/25/18 21:00 04/25/18 22:00 Temperature Pulse Rate 52 L 56 L 54 L Respiratory Rate Blood Pressure Pulse Oximetry 04/25/18 23:00 04/26/18 00:00 04/26/18 01:00 Temperature 97.4 F L Pulse Rate 58 L 54 L 52 L Respiratory Rate 20 Blood Pressure 80/57 L Pulse Oximetry 97 04/26/18 02:00 04/26/18 03:00 04/26/18 04:00 Temperature 97.2 F L Pulse Rate 52 L 56 L 71 Respiratory Rate 18 Blood Pressure 93/64 L Pulse Oximetry 96 04/26/18 05:00 04/26/18 06:00 04/26/18 07:25 Temperature 97.5 F L Pulse Rate 52 L 52 L 55 L Respiratory Rate 18 Blood Pressure 87/67 L Pulse Oximetry 98 Intake & Output 04/25/18 04/26/18 04/26/18 18:59 06:59 18:59 Intake Total 720 / 720 200 / 200 Output Total 700 / 700 400 / 400 Balance 20 / 20 -200 / -200 Weight 95.5 kg Intake: Oral 720 / 720 200 / 200 Output: Urine 700 / 700 400 / 400 Other: # Voids 1 Date of Last Bowel Movement 04/21/18 04/21/18 # Bowel Movements 0 - Constitutional no acute distress - Routine Respiratory Exam Present: CTA bilaterally - Routine Cardiovascular Exam Present: RRR - Routine Abdominal Exam Present: soft - Routine Extremities Exam Comments: no pedal edema- - Routine Neurological Exam Present: alert, oriented X3 Results - Labs CBC & Chem 7: 04/22/18 08:15 04/25/18 04:44 Assessment and Plan - Plan A/P - atrial fibrillation with RVR- now back in sinus rhythm continue with oral Cardizem- continue aspirin -initially added Eliquis but this is on hold because of Hematuria; will resume if ok with Urology. started on Flecainide. had an echo three months ago with EF55% with mild LVH. cardiology follow-up appreciated and cleared for discharge. -near-syncope with history of orthostatic hypotension will continue Florinef and Midodrine- consulted PT - cardiology evaluation as noted above. -hypertension; stopped Amlodipine- continue Cardizem-lisinopril was decreased to 2.5 mg daily. Metoprolol was dc'ed per cardiology.will monitor and adjust the regimen as needed. -CKD- stable at his baseline- will monitor. -history of prostate and throat cancer- f/u as outpatient. continue with pain control. evaluated by ST; recommended mechanical soft diet. -Hematuria- has resolved- Eliquis on hold- Urology consulted- will continue to monitor. -left shoulder pain/ will check XR. -DVT prophylaxis ; started on Eliquis ( on hold for Hematuria). Discharge Planning: d/c to rehab today pending urology evaluation/ XR of the left shoulder. f/u; pcp and cardiology. see med list. d/w the patient, RN and previously with .
[2018-04-26] MEDS: Flecainide 100 MG Tablet PO SCH ×2 (08:59→21:01)
[2018-04-26] MEDS: dilTIAZem CD 240 MG Capsule PO SCH (09:00)
[2018-04-26] MEDS: FLUoxetine 20 MG Capsule PO SCH (09:00)
[2018-04-26] MEDS: Potassium Chloride 10 MEQ ER Capsule PO SCH ×2 (09:00→20:57)
--- NOTE | 2018-04-26 11:23 | XR ---
EXAM DATE: 04/26/2018 11:14 AM EDT AGE/SEX: 77 years / Male INDICATIONS: Left shoulder pain with no known injury. CLINICAL DATA: This is the patient's subsequent encounter. Patient reports that signs and symptoms h ave been present for 3 days and indicates a pain score of 6/10. MEDICAL/SURGICAL HISTORY: . Hypercholesterolemia. Hypertension. Syncope. Renal failure. Renal c ancer. Arthritis. Syncope. Throat cancer. . Nephrectomy, right. Cholecystectomy. Prostatectomy. COMPARISON: [facility], XR SACROILIAC JOINTS, BILATERAL, 03/14/2018. . FINDINGS: There is no evidence of acute fracture. Bony mineralization is normal. There is lucency in the body o f the scapula measuring 7 to 8 mm. The appearance is nonspecific. MRI is recommended for further eval uation if clinically indicated. CONCLUSION: Indeterminate lucency involving the body of the scapula as above. MRI is recommended for further eval uation if clinically indicated. Electronically signed by: Leobardo De Santiago MD 04/26/2018 11:22 AM EDT
--- NOTE | 2018-04-26 12:35 | P.CONURO ---
History of Present Illness Service: Urology Consult date: 04/26/18 Requesting Physician: Manav Forte Reason for Consult: Hematuria Primary Care Provider: Hong Castro MD Chief Complaint: I feel weak. History of Present Illness: Pt admited to the hospital due to A fib w/ RVR and developped hematuria post starting Eliquis. Its on hold now. Hematuria resolved. No voiding c/o. Has h/o Prostate and renal cancer and seeing Urologist Dr Fletcher for it. No other c /o today Review of Systems All other systems reviewed negative except as stated in HPI PMFSH - History History Provided By: Patient, Family Member - Medical History Medical History: Medical History (Last Reviewed 04/26/18 @ 08:59 by Heather Zacarias, SURVEY RESEARCH MANAGER) CHF (congestive heart failure) History of kidney cancer History of nephrectomy, unilateral History of prostate cancer Hypertension Throat cancer - Surgical History Surgical History: Surgical History (Last Reviewed 04/23/18 @ 09:22 by Tania Avila) Hx of cardiac cath Hx of colonoscopy Hx of hemorrhoidectomy Hx of prostatectomy - Family History Family History: Family History (Last Reviewed 04/23/18 @ 09:22 by Tania Avila) Brother Family history of cancer - Tobacco History Second Hand Smoke Exposure: No Tobacco Use In Past 30 Days: No Smoking Status: Never smoker - Alcohol History How Often Do You Have a Drink Containing Alcohol: Never - Substance Use History Substance History: No History of Abuse - Travel History Recent Travel in the [place] Within the Last 8 Weeks: No Recent Travel Out of the Country Within the Last 8 Weeks: No - Immunization History Tetanus Immunization: Unsure Hx Influenza Vaccine This Season: No Medications and Allergies Active Medications: Active Medications Acetaminophen (Tylenol) 650 mg PO Q4H PRN PRN Reason: fever or headache Last Admin: 04/23/18 04:03 Dose: 650 mg Hydrocodone Bitart/Acetaminophen ([place] 10/325) 1 tab PO Q4H PRN PRN Reason: sore throat Last Admin: 04/25/18 22:46 Dose: 1 tab Apixaban (Eliquis) 5 mg PO BID [facility] Last Admin: 04/26/18 09:01 Dose: Not Given Aspirin (Ecotrin) 81 mg PO DAILY [facility] Last Admin: 04/26/18 09:00 Dose: 81 mg Diltiazem HCl (Cardizem Cd 24hr) 240 mg PO DAILY [facility] Last Admin: 04/26/18 09:00 Dose: 240 mg Flecainide Acetate (Tambocor) 50 mg PO BID [facility] Last Admin: 04/26/18 08:59 Dose: 50 mg Fludrocortisone Acetate (Florinef) 0.1 mg PO DAILY [facility] Last Admin: 04/26/18 08:59 Dose: 0.1 mg Fluoxetine HCl (Prozac) 20 mg PO DAILY [facility] Last Admin: 04/26/18 09:00 Dose: 20 mg Imipramine HCl (Tofranil) 50 mg PO [facility] Last Admin: 04/25/18 21:35 Dose: 50 mg Lisinopril (Prinivil) 2.5 mg PO DAILY [facility] Last Admin: 04/26/18 09:00 Dose: 2.5 mg Midodrine (Proamatine) 2.5 mg PO TID [facility] Last Admin: 04/26/18 08:59 Dose: 2.5 mg Miscellaneous (Pill Splitter) 1 each OTHER UNSCH PRN PRN Reason: SEE LABEL COMMENTS Montelukast Sodium (Singulair) 10 mg PO QPM [facility] Last Admin: 04/24/18 17:28 Dose: 10 mg Potassium Chloride (Kcl) 20 meq PO BID [facility] Last Admin: 04/26/18 09:00 Dose: 20 meq Allergies Allergy/AdvReac Type Severity Reaction Status Date / Time colchicine Allergy Severe Headache Verified 04/22/18 08:06 labetalol Allergy Unknown unknown Verified 04/22/18 08:06 Home Medications Medication Instructions Recorded Confirmed Type amlodipine 2.5 mg PO BID 04/03/18 04/22/18 History aspirin [Aspirin Low Dose] 81 mg PO DAILY 04/03/18 04/22/18 History fludrocortisone 0.1 mg PO DAILY 04/03/18 04/22/18 History lisinopril 5 mg PO DAILY 04/03/18 04/22/18 History metoprolol succinate 50 mg PO HS 04/03/18 04/22/18 History midodrine 2.5 mg PO TID 04/03/18 04/22/18 History fluoxetine 20 mg PO DAILY 04/22/18 04/22/18 History imipramine HCl 50 mg PO HS 04/22/18 04/22/18 History montelukast 10 mg PO QPM 04/22/18 04/22/18 History oxycodone-acetaminophen 1 tab PO Q4-6H PRN 04/22/18 04/22/18 History potassium chloride [Klor-Con 10 meq PO BID 04/22/18 04/22/18 History Sprinkle] sennosides [Senna Laxative] 8.6 mg PO BID 04/22/18 04/22/18 History sodium chloride 1 tab PO DAILY 04/22/18 04/22/18 History spironolactone 25 mg PO DAILY 04/22/18 04/22/18 History Physical Exam Vital Signs - 24 hr 04/25/18 13:00 04/25/18 14:00 04/25/18 15:00 Temperature 98.4 F Pulse Rate 58 L 54 L 54 L Respiratory Rate 18 Blood Pressure 98/55 L Pulse Oximetry 96 04/25/18 16:00 04/25/18 17:00 04/25/18 18:00 Temperature Pulse Rate 54 L 58 L 54 L Respiratory Rate Blood Pressure Pulse Oximetry 04/25/18 19:00 04/25/18 20:00 04/25/18 21:00 Temperature 98 F Pulse Rate 52 L 52 L 56 L Respiratory Rate 16 Blood Pressure 143/97 H Pulse Oximetry 96 04/25/18 22:00 04/25/18 23:00 04/26/18 00:00 Temperature 97.4 F L Pulse Rate 54 L 58 L 54 L Respiratory Rate 20 Blood Pressure 80/57 L Pulse Oximetry 97 04/26/18 01:00 04/26/18 02:00 04/26/18 03:00 Temperature 97.2 F L Pulse Rate 52 L 52 L 56 L Respiratory Rate 18 Blood Pressure 93/64 L Pulse Oximetry 96 04/26/18 04:00 04/26/18 05:00 04/26/18 06:00 Temperature Pulse Rate 71 52 L 52 L Respiratory Rate Blood Pressure Pulse Oximetry 04/26/18 07:00 04/26/18 07:25 04/26/18 07:26 Temperature 97.5 F L Pulse Rate 53 L 55 L Respiratory Rate 18 Blood Pressure 87/67 L 140/84 Pulse Oximetry 98 04/26/18 08:00 04/26/18 09:00 04/26/18 10:00 Temperature Pulse Rate 54 L 54 L 58 L Respiratory Rate Blood Pressure Pulse Oximetry 04/26/18 11:41 Temperature 97.5 F L Pulse Rate 48 L Respiratory Rate 18 Blood Pressure 80/42 L Pulse Oximetry 95 Physical Exam: NAD RRR Clear lungs Abd soft NT Bladder not distended. Result Diagrams: 04/22/18 08:15 04/25/18 04:44 Imaging: ITS Impressions Cervical Spine CT 04/22/18 08:41 CONCLUSION: 1. Multilevel degenerative changes are seen without fracture or listhesis. Head CT 04/22/18 08:41 CONCLUSION: 1. Negative CT Head non contrast. . Shoulder X-Ray 04/26/18 00:00 CONCLUSION: Indeterminate lucency involving the body of the scapula as above. MRI is recommended for further evaluation if clinically indicated. Assessment and Plan - Plan 77y.o M with other medical history Urology consulted for Hematuria post Eliquis for A fib - Continue care as per primary team No acute intervention needed - Hematuria now resolved. H/H is stable - Pt can restart Eliquis Follow up with as an outpt after discharge Discussed Condition With: Pt's RN and Dr Ofe BUSTILLOS attending
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
--- NOTE | 2018-04-26 14:10 | P.DS ---
Date of admission: 04/22/18 11:02 Primary care physician: Hong Castro MD Brief History from admission: patient is a 77 y/o male with history of a-fib, hypertension/ orthostatic hypotension, prostate and throat cancer who presented to ER after he fell at home earlier today. he says that he went to bathroom this morning, then went back to bed but when he decided to get up, he couldn't and fell on the floor. he didn't pass out. he denies any chest pain, sob, focal weakness, slurred speech or headache but he says that he's feeling weak.upon arrival to ER he was in a-fib with RVR and started on Cardizem drip.he normally walks with a walker.he was admitted three months ago with syncope and orthostatic hypotension. he's being followed up by . DS: Medications - Discharge Medications Prescriptions: apixaban [Eliquis] 5 mg PO BID 30 Days #60 tab hydrocodone-acetaminophen 1 tab PO Q4H PRN #10 tab PRN Reason: sore throat DS: Summary Hospital Course: - atrial fibrillation with RVR- now back in sinus rhythm continue with oral Cardizem- continue aspirin and Eliquis. started on Flecainide. had an echo three months ago with EF55% with mild LVH. cardiology follow-up appreciated and cleared for discharge. -near-syncope with history of orthostatic hypotension will continue Florinef and Midodrine- consulted PT - cardiology evaluation as noted above. -hypertension; stopped Amlodipine- continue Cardizem-lisinopril was decreased to 2.5 mg daily. Metoprolol was dc'ed per cardiology.will monitor and adjust the regimen as needed. -CKD- stable at his baseline- will monitor. -history of prostate and throat cancer- f/u as outpatient. continue with pain control. evaluated by ST; recommended mechanical soft diet. -Hematuria- has resolved- was seen by Urology; recommended outpatient follow- up. cleared for Eliquis. -left shoulder pain- f/u as outpatient. -DVT prophylaxis ; started on Eliquis . - Time Spent with Patient Total time spent providing and/or coordinating discharge services: Greater than 30 minutes (35 min.) - Quality: VTE Deep Vein Thrombosis/Pulmonary Embolism Present on Admission: No Exam Vital signs: Vital Signs 04/25/18 15:00 04/25/18 16:00 04/25/18 17:00 Temperature 98.4 F Pulse Rate 54 L 54 L 58 L Respiratory Rate 18 Blood Pressure 98/55 L Pulse Oximetry 96 04/25/18 18:00 04/25/18 19:00 04/25/18 20:00 Temperature 98 F Pulse Rate 54 L 52 L 52 L Respiratory Rate 16 Blood Pressure 143/97 H Pulse Oximetry 96 04/25/18 21:00 04/25/18 22:00 04/25/18 23:00 Temperature 97.4 F L Pulse Rate 56 L 54 L 58 L Respiratory Rate 20 Blood Pressure 80/57 L Pulse Oximetry 97 04/26/18 00:00 04/26/18 01:00 04/26/18 02:00 Temperature Pulse Rate 54 L 52 L 52 L Respiratory Rate Blood Pressure Pulse Oximetry 04/26/18 03:00 04/26/18 04:00 04/26/18 05:00 Temperature 97.2 F L Pulse Rate 56 L 71 52 L Respiratory Rate 18 Blood Pressure 93/64 L Pulse Oximetry 96 04/26/18 06:00 04/26/18 07:00 04/26/18 07:25 Temperature 97.5 F L Pulse Rate 52 L 53 L 55 L Respiratory Rate 18 Blood Pressure 87/67 L Pulse Oximetry 98 04/26/18 07:26 04/26/18 08:00 04/26/18 09:00 Temperature Pulse Rate 54 L 54 L Respiratory Rate Blood Pressure 140/84 Pulse Oximetry 04/26/18 10:00 04/26/18 11:00 04/26/18 11:41 Temperature 97.5 F L Pulse Rate 58 L 64 48 L Respiratory Rate 18 Blood Pressure 80/42 L Pulse Oximetry 95 04/26/18 12:00 Temperature Pulse Rate 72 Respiratory Rate Blood Pressure Pulse Oximetry Intake & Output 04/25/18 04/26/18 04/26/18 18:59 06:59 18:59 Intake Total 720 / 720 200 / 200 Output Total 700 / 700 400 / 400 Balance 20 / 20 -200 / -200 Weight 95.5 kg 91.9 kg Intake: Oral 720 / 720 200 / 200 Output: Urine 700 / 700 400 / 400 Other: # Voids 1 Date of Last Bowel Movement 04/21/18 04/21/18 # Bowel Movements 0 - Constitutional no acute distress - Routine Respiratory Exam Present: CTA bilaterally - Routine Cardiovascular Exam Present: RRR - Routine Abdominal Exam Present: soft - Routine Extremities Exam Comments: no pedal edema. - Routine Neurological Exam Present: alert, oriented X3 Results Procedures completed during hospitalization: none. - Impressions ITS Impressions Cervical Spine CT 04/22/18 08:41 CONCLUSION: 1. Multilevel degenerative changes are seen without fracture or listhesis. Head CT 04/22/18 08:41 CONCLUSION: 1. Negative CT Head non contrast. . Shoulder X-Ray 04/26/18 00:00 CONCLUSION: Indeterminate lucency involving the body of the scapula as above. MRI is recommended for further evaluation if clinically indicated. Discharge Plan - Discharge Disposition Patient Disposition: 03 Discharge to SNF - Discharge Condition Condition: Fair - Physicians Team Primary Care Provider: Hong Castro Attending Provider: Manav Forte Other Providers: Vamshi Ny MD ; Melvin Thakur MD ; Prakash Duke MD ; Leonid Seals MD
[2018-04-26] MEDS: Montelukast 10 MG Tablet PO SCH (17:48)
--- NOTE | 2018-04-27 07:51 | P.PNCA ---
Subjective Interval history: No lightheadedness oe syncopy. BP low standing yesterday. No hematuria back on Eliquis. Physical Exam Vital signs: Vital Signs 04/26/18 08:00 04/26/18 09:00 04/26/18 10:00 Temperature Pulse Rate 54 L 54 L 58 L Respiratory Rate Blood Pressure Pulse Oximetry 04/26/18 11:00 04/26/18 11:41 04/26/18 12:00 Temperature 97.5 F L Pulse Rate 64 48 L 72 Respiratory Rate 18 Blood Pressure 80/42 L Pulse Oximetry 95 04/26/18 13:00 04/26/18 14:00 04/26/18 14:52 Temperature 97.5 F L Pulse Rate 62 54 L 57 L Respiratory Rate 18 Blood Pressure 72/54 L Pulse Oximetry 97 04/26/18 15:00 04/26/18 16:00 04/26/18 17:00 Temperature Pulse Rate 65 50 L 54 L Respiratory Rate Blood Pressure Pulse Oximetry 04/26/18 18:00 04/26/18 19:00 04/26/18 20:00 Temperature 98.4 F Pulse Rate 58 L 56 L 62 Respiratory Rate 16 Blood Pressure 160/90 H Pulse Oximetry 97 04/26/18 21:00 04/26/18 22:00 04/26/18 23:00 Temperature 98.2 F Pulse Rate 50 L 50 L 49 L Respiratory Rate 16 Blood Pressure 168/98 H Pulse Oximetry 95 04/27/18 00:00 04/27/18 01:00 04/27/18 02:00 Temperature Pulse Rate 48 L 72 56 L Respiratory Rate Blood Pressure Pulse Oximetry 04/27/18 03:00 04/27/18 04:00 04/27/18 05:00 Temperature 98.4 F Pulse Rate 53 L 52 L 54 L Respiratory Rate 18 Blood Pressure 158/100 H Pulse Oximetry 95 04/27/18 06:00 04/27/18 07:00 Temperature Pulse Rate 56 L 54 L Respiratory Rate Blood Pressure Pulse Oximetry Intake & Output 04/26/18 04/27/18 04/27/18 18:59 06:59 18:59 Intake Total 960 / 960 240 / 240 Output Total 775 / 775 400 / 400 Balance 185 / 185 -160 / -160 Weight 91.9 kg 92.5 kg Intake: Oral 960 / 960 240 / 240 Output: Urine 775 / 775 400 / 400 Other: Date of Last Bowel Movement 04/21/18 04/21/18 - Constitutional no acute distress - Routine Respiratory Exam Present: CTA bilaterally - Routine Cardiovascular Exam Present: RRR, S1, S2, bradycardia - Routine Extremities Exam Comments: No C/C/E - Routine Skin Exam Present: intact Assessment and Plan - Assessment (1) Paroxysmal atrial fibrillation with rapid ventricular response Code(s): I48.0 - Paroxysmal atrial fibrillation Status: Acute (2) Autonomic instability Code(s): G90.9 - Disorder of the autonomic nervous system, unspecified Status : Acute (3) Orthostatic hypotension Code(s): I95.1 - Orthostatic hypotension Status: Acute (4) Hypertension Code(s): I10 - Essential (primary) hypertension Status: Acute (5) CAD (coronary artery disease) Code(s): I25.10 - Atherosclerotic heart disease of [place] coronary artery without angina pectoris Status: Acute (6) Odynophagia Code(s): R13.10 - Dysphagia, unspecified Status: Acute (7) Hematuria Code(s): R31.9 - Hematuria, unspecified Status: Acute - Plan Maintaining sinus roldan. No afib seen in 72 hours. Continue flecainide 50 mg BID. Standing BP low yeaterday. D/C Lotensin and increase midodrine 5 mg TID. Need to tolerate high supine and sitting BP. Avoid treating high supine and sitting BP's. Record and treat BP taken in standing position only. Maintain standing systolic pressure 90-110. D/C telemetry. Awaiting SNF transfer. Will sign off and see back as outpatient in 2 weeks. Thank you.
--- NOTE | 2018-04-27 08:15 | P.PNIM ---
Subjective Interval history: f/u; s-fib in no distress. looks fairly comfortable. still with generalized weakness. Physical Exam Vital signs: Vital Signs 04/26/18 09:00 04/26/18 10:00 04/26/18 11:00 Temperature Pulse Rate 54 L 58 L 64 Respiratory Rate Blood Pressure Pulse Oximetry 04/26/18 11:41 04/26/18 12:00 04/26/18 13:00 Temperature 97.5 F L Pulse Rate 48 L 72 62 Respiratory Rate 18 Blood Pressure 80/42 L Pulse Oximetry 95 04/26/18 14:00 04/26/18 14:52 04/26/18 15:00 Temperature 97.5 F L Pulse Rate 54 L 57 L 65 Respiratory Rate 18 Blood Pressure 72/54 L Pulse Oximetry 97 04/26/18 16:00 04/26/18 17:00 04/26/18 18:00 Temperature Pulse Rate 50 L 54 L 58 L Respiratory Rate Blood Pressure Pulse Oximetry 04/26/18 19:00 04/26/18 20:00 04/26/18 21:00 Temperature 98.4 F Pulse Rate 56 L 62 50 L Respiratory Rate 16 Blood Pressure 160/90 H Pulse Oximetry 97 04/26/18 22:00 04/26/18 23:00 04/27/18 00:00 Temperature 98.2 F Pulse Rate 50 L 49 L 48 L Respiratory Rate 16 Blood Pressure 168/98 H Pulse Oximetry 95 04/27/18 01:00 04/27/18 02:00 04/27/18 03:00 Temperature 98.4 F Pulse Rate 72 56 L 53 L Respiratory Rate 18 Blood Pressure 158/100 H Pulse Oximetry 95 04/27/18 04:00 04/27/18 05:00 04/27/18 06:00 Temperature Pulse Rate 52 L 54 L 56 L Respiratory Rate Blood Pressure Pulse Oximetry 04/27/18 07:00 Temperature Pulse Rate 54 L Respiratory Rate Blood Pressure Pulse Oximetry Intake & Output 04/26/18 04/27/18 04/27/18 18:59 06:59 18:59 Intake Total 960 / 960 240 / 240 Output Total 775 / 775 400 / 400 Balance 185 / 185 -160 / -160 Weight 91.9 kg 92.5 kg Intake: Oral 960 / 960 240 / 240 Output: Urine 775 / 775 400 / 400 Other: Date of Last Bowel Movement 04/21/18 04/21/18 - Constitutional no acute distress - Routine Respiratory Exam Present: CTA bilaterally - Routine Cardiovascular Exam Present: RRR - Routine Abdominal Exam Present: soft - Routine Extremities Exam Comments: no pedal edema. - Routine Neurological Exam Present: alert, oriented X3 Results - Labs CBC & Chem 7: 04/22/18 08:15 04/25/18 04:44 - Imaging Impressions Shoulder X-Ray 04/26/18 00:00 CONCLUSION: Indeterminate lucency involving the body of the scapula as above. MRI is recommended for further evaluation if clinically indicated. - Procedures none. Assessment and Plan - Plan A/P - atrial fibrillation with RVR- now back in sinus rhythm continue with oral Cardizem, continue aspirin and Eliquis - started on Flecainide. had an echo three months ago with EF55% with mild LVH. cardiology follow-up appreciated and cleared for discharge. -near-syncope with history of orthostatic hypotension will continue Florinef and Midodrine- consulted PT - cardiology evaluation as noted above. -hypertension; stopped Amlodipine and Lisinopril- continue Cardizem- Metoprolol was dc'ed per cardiology.will monitor and adjust the regimen as needed. -CKD- stable at his baseline- will monitor. -history of prostate and throat cancer- f/u as outpatient. continue with pain control. evaluated by ST; recommended mechanical soft diet. -Hematuria- has resolved-Urology evaluation appreciated- f/u as outpatient- cleared for anticoagulation. -left shoulder pain- XR of the left shoulder negative for fracture; lucency noted on the left Scapula; this was d/w ; recommended MRI as outpatient. -DVT prophylaxis ; started on Eliquis. Code Status: d/w the patient; he wants to d/w the grandson first. Discharge Planning: d/c to rehab soon- SNF vs [place]. f/u; pcp and cardiology and Urology. see med list. d/w the patient, RN and previously with .
[2018-04-27] MEDS: dilTIAZem CD 240 MG Capsule PO SCH (09:17)
[2018-04-27] MEDS: Potassium Chloride 10 MEQ ER Capsule PO SCH ×2 (09:17→21:48)
[2018-04-27] MEDS: FLUoxetine 20 MG Capsule PO SCH (09:17)
[2018-04-27] MEDS: Flecainide 100 MG Tablet PO SCH ×2 (09:17→21:48)
[2018-04-27] MEDS: Montelukast 10 MG Tablet PO SCH ×2 (18:01→18:02)
[2018-04-28] MEDS: Acetaminophen 325 MG Tablet PO PRN (02:41)
[2018-04-28] MEDS ORDERED: Bisacodyl 10 MG Supp RECTAL PRN (07:22)
--- NOTE | 2018-04-28 07:45 | P.PNIM ---
Subjective Interval history: in no distress. says that he's feeling better today. no new complaints. d/w the RN at the bedside. awaiting transfer to rehab. Physical Exam Vital signs: Vital Signs 04/27/18 08:00 04/27/18 09:15 04/27/18 10:22 Temperature 97.7 F Pulse Rate 74 Respiratory Rate 20 19 17 Blood Pressure 160/100 H Pulse Oximetry 95 04/27/18 11:00 04/27/18 11:32 04/27/18 12:38 Temperature 97.6 F Pulse Rate 62 57 L 63 Respiratory Rate 20 Blood Pressure 140/78 Pulse Oximetry 94 L 04/27/18 13:00 04/27/18 14:00 04/27/18 14:54 Temperature Pulse Rate 65 55 L Respiratory Rate 16 Blood Pressure Pulse Oximetry 04/27/18 15:00 04/27/18 16:00 04/27/18 16:19 Temperature 97.7 F Pulse Rate 58 L 53 L Respiratory Rate 17 17 Blood Pressure 160/90 H Pulse Oximetry 95 04/27/18 18:00 04/27/18 19:00 04/27/18 20:00 Temperature 98.2 F Pulse Rate 58 L 56 L 60 Respiratory Rate 22 Blood Pressure 120/90 Pulse Oximetry 97 04/27/18 21:00 04/27/18 22:00 04/27/18 23:00 Temperature 97.9 F Pulse Rate 62 62 53 L Respiratory Rate 18 Blood Pressure 144/78 H Pulse Oximetry 96 04/27/18 23:26 04/28/18 00:00 04/28/18 01:00 Temperature Pulse Rate 60 56 L Respiratory Rate 20 Blood Pressure Pulse Oximetry 04/28/18 02:00 04/28/18 03:00 04/28/18 04:00 Temperature 98 F Pulse Rate 56 L 54 L 54 L Respiratory Rate 16 Blood Pressure 148/82 H Pulse Oximetry 97 04/28/18 05:00 04/28/18 06:00 Temperature Pulse Rate 52 L 68 Respiratory Rate Blood Pressure Pulse Oximetry Intake & Output 04/27/18 04/28/18 04/28/18 18:59 06:59 18:59 Intake Total 720 / 720 Output Total 800 / 800 800 / 800 Balance -800 / -800 -80 / -80 Weight 96 kg Intake: Oral 720 / 720 Output: Urine 800 / 800 800 / 800 Other: Date of Last Bowel Movement 04/21/18 - Constitutional no acute distress - Routine Respiratory Exam Present: CTA bilaterally - Routine Cardiovascular Exam Present: bradycardia - Routine Abdominal Exam Present: soft - Routine Extremities Exam Comments: no pedal edema. - Routine Neurological Exam Present: alert, oriented X3 Results - Labs CBC & Chem 7: 04/22/18 08:15 04/25/18 04:44 - Procedures none. Assessment and Plan - Plan A/P - atrial fibrillation with RVR- continue with oral Cardizem, continue aspirin and Eliquis - started on Flecainide. had an echo three months ago with EF55% with mild LVH. cardiology follow-up appreciated and cleared for discharge. -near-syncope with history of orthostatic hypotension will continue Florinef and Midodrine- consulted PT - cardiology evaluation as noted above. -hypertension; stopped Amlodipine and Lisinopril- continue Cardizem- Metoprolol was dc'ed per cardiology.will monitor and adjust the regimen as needed. -CKD- stable at his baseline- will monitor. -history of prostate and throat cancer- f/u as outpatient. continue with pain control. evaluated by ST; recommended mechanical soft diet. -Hematuria- has resolved-Urology evaluation appreciated- f/u as outpatient- cleared for anticoagulation. -left shoulder pain- XR of the left shoulder negative for fracture; lucency noted on the left Scapula; this was d/w ; recommended MRI as outpatient. -DVT prophylaxis ; started on Eliquis. Discharge Planning: awaiting transfer to inpatient rehab. f/u; pcp and cardiology and Urology. see med list. d/w the patient, RN and previously with .
[2018-04-28] MEDS: dilTIAZem CD 240 MG Capsule PO SCH (08:36)
[2018-04-28] MEDS: Potassium Chloride 10 MEQ ER Capsule PO SCH (08:36)
[2018-04-28] MEDS: FLUoxetine 20 MG Capsule PO SCH (08:37)
[2018-04-28] MEDS: Flecainide 100 MG Tablet PO SCH (08:37)
== END 2018-04-28 10:30 ==
LOC: NEPE 08:01 → NEDA 11:02 → HCPC 13:42 → NEDA 13:50
PROVIDERS: ADMIT Internal Medicine; ATTEND Internal Medicine

== ENCOUNTER 2018-06-22 13:03 | Inpatient (IN) ==
[2018-06-22] MEDS ORDERED: Sodium Chlor 0.9% Inj 500 ML IV.SIG SCH (14:00)
[2018-06-22 14:08] LABS: Baso % (Auto) 0.2 % (0.0-2.0); Hemoglobin 11.1 gm/dL (13.0-17.0); Lymph # (Auto) 2.8 th/mm3 (1.0-4.8); Lymph % (Auto) 22.7 % (9.0-44.0); Mean Corpuscular HGB Conc 33.6 % (32.0-36.0); Mean Corpuscular Hemoglobin 32.9 pg (27.0-34.0); Mean Platelet Volume 7.3 fL (7.0-11.0); Mono # (Auto) 0.8 th/mm3 (0.0-0.9); Mono % (Auto) 6.5 % (0.0-8.0); Neut # (Auto) 8.6 th/mm3 (1.8-7.7); Neut % (Auto) 70.6 % (16.0-70.0); Platelet Count 269 th/mm3 (150-450); Red Blood Count 3.37 mil/mm3 (4.50-5.90); Red Cell Distribution Width 15.7 % (11.6-17.2); White Blood Count 12.2 th/mm3 (4.0-11.0)
[2018-06-22 14:26] LABS: Alanine Aminotransferase 19 U/L (12-78); Albumin 2.8 g/dL (3.4-5.0); Anion Gap 6 meq/L (5-15); Aspartate Aminotransferase 15 U/L (15-37); Blood Urea Nitrogen 29 mg/dL (7-18); Calcium 8.4 mg/dL (8.5-10.1); Carbon Dioxide 31.1 meq/L (21.0-32.0); Chloride 104 meq/L (98-107); Glomerular Filtration Rate 54 mL/min (>89); Glucose,Random 134 mg/dL (74-106); Magnesium 2.1 mg/dL (1.5-2.5); Potassium 4.7 meq/L (3.5-5.1); Sodium 141 meq/L (136-145)
[2018-06-22 14:31] LABS: Alkaline Phosphatase 129 U/L (45-117); Total Protein 6.4 g/dL (6.4-8.2)
[2018-06-22 14:41] LABS: Acanthocytes Occ; Ovalocytes 1+; Platelet Estimate Normal (Normal); Platelet Morphology Normal (Normal)
--- NOTE | 2018-06-22 14:51 | XR ---
EXAM DATE: 06/22/2018 2:35 PM EDT AGE/SEX: 77 years / Male INDICATIONS: Syncope. CLINICAL DATA: This is the patient's initial encounter. Patient reports that signs and symptoms have been present for 1 day and indicates a pain score of 0/10. MEDICAL/SURGICAL HISTORY: Congestive heart failure. Carcinoma, tongue. AFIB. Throat carcinoma. None. COMPARISON: [facility], CHEST 1V SINGLE AP, 05/07/2018. . FINDINGS: A single AP view of the chest demonstrates the lungs to be symmetrically aerated without evidence of mass, infiltrate or effusion. The cardiomediastinal contours are unremarkable. Osseous structures a re intact. CONCLUSION: Negative for an acute process Electronically signed by: Eliud Lake MD 06/22/2018 2:50 PM EDT
--- NOTE | 2018-06-22 15:47 | CT ---
EXAM DATE: 06/22/2018 3:36 PM EDT AGE/SEX: 77 years / Male INDICATIONS: Shortness of breath, weakness. CLINICAL DATA: This is the patient's initial encounter. Patient reports that signs and symptoms have been present for 1 day and indicates a pain score of Nonresponsive. MEDICAL/SURGICAL HISTORY: Congestive heart failure. Carcinoma, prostatic. Hypertension. Head and neck cancer. Prostatectomy. Nephrectomy, right. RADIATION DOSE: 10.36 CTDI (mGy) COMPARISON: [facility], CT ABDOMEN & PELVIS W/O CONTRAST, 05/17/2018. . TECHNIQUE: Volumetric scanning was performed using a multi-row detector CT scanner during bolus infu aleisha of 50 ml Visipaque 320 (iodixanol) nonionic water-soluble contrast as a single exam dose. The d freya was post processed with a variety of visualization algorithms including full volume maximum inten sity projection and sliding thin slab reformation. Using automated exposure control and adjustment o f the mA and/or kV according to patient size, radiation dose was kept as low as reasonably achievable to obtain optimal diagnostic quality images. DICOM format image data is available electronically fo r review and comparison. FINDINGS: Pulmonary Arteries: No filling defect is identified through the segmental and some of the subsegmenta l level pulmonary arteries. Lungs: No consolidation or pneumothorax is identified. There is dependent atelectasis in the right l nereida. Mediastinum: The heart and great vessels demonstrate no acute abnormality. No lymphadenopathy is vis ualized. There is coronary artery calcification and moderate atherosclerotic disease of the aorta. Sm all pericardial effusion is present. Pleurae: No pleural effusion or pleural thickening. Axillae: No lymphadenopathy. Musculoskeletal: No acute osseous abnormality is identified. There are degenerative changes of the t horacic spine. No lytic or blastic lesion is seen. Other: Visualized upper abdominal structures demonstrate no acute abnormality. There is intra and ex trahepatic bile duct dilatation in this patient post cholecystectomy. This finding is stable. Subcuta neous nodule is present in the midline chest anterior to the sternum measuring 1.9 cm. CONCLUSION: 1. No PE is identified. There is no acute finding to explain the shortness of breath. 2. Dependent atelectasis in the right lung. Otherwise, lungs are clear. 3. Nonacute findings include severe coronary artery calcification and 1.9 cm subcutaneous nodule on the anterior midline chest likely representing a sebaceous cyst. Electronically signed by: Leoncio Robertson MD 06/22/2018 3:46 PM EDT
--- NOTE | 2018-06-22 15:55 | CT ---
EXAM DATE: 06/22/2018 3:41 PM EDT AGE/SEX: 77 years / Male INDICATIONS: Weakness and nausea, history of head and neck cancer. CLINICAL DATA: This is the patient's initial encounter. Patient reports that signs and symptoms have been present for 1 day and indicates a pain score of Nonresponsive. MEDICAL/SURGICAL HISTORY: Carcinoma, prostatic. Congestive heart failure. Hypertension. Head and neck cancer. Prostatectomy. Nephrectomy, right. RADIATION DOSE: 17.33 CTDI (mGy) [place] [facility] [place]16/[place]. . TECHNIQUE: Helical acquisition was performed using a multirow detector CT scanner during the adminis tration of 25 ml Visipaque 320 (iodixanol) nonionic water-soluble contrast as a single exam dose. U sing automated exposure control and adjustment of the mA and/or kV according to patient size, radiati on dose was kept as low as reasonably achievable to obtain optimal diagnostic quality images. DICOM format image data is available electronically for review and comparison. FINDINGS: There is an infiltrating mass large ulceration base of the tongue on the left side with invasion of t he lingual artery space in intimate association with the mandible and the alveolar foramen. Mass does extend back along the base of the tongue and crosses midline to the right. The supraglottic larynx is unremarkable. Residual true vocal cords appear normal In spite of the soft tissue mass involving base of the tongue on the right there is no radiographic s uspicious adenopathy out of the right or the left neck. CONCLUSION: 1. Large ulcerating mass based on the left side that does cross the midline at base of tongue. Electronically signed by: Eliud Lake MD 06/22/2018 3:54 PM EDT
[2018-06-22 16:18] LABS: Bacteria,Urine Moderate /hpf; Bilirubin,Urine Negative (Negative); Clarity,Urine Cloudy (Clear); Color,Urine Amber (Yellw/Straw); Glucose,Urine (UA) Negative (Negative); Hyaline Casts,Urine 19 /lpf (0-3); Leukocyte Esterase,Urine Large (Negative); Mucus,Urine Few /lpf (Occasional); Nitrite,Urine Positive (Negative); Specific Gravity,Urine 1.021 (1.002-1.035); Urobilinogen,Urine 4 or Greater mg/dL (Less than 2)
--- NOTE | 2018-06-22 17:24 | ED ---
HPI General Chief complaint: Weakness Stated complaint: weakness Time Seen by Provider: 06/22/18 13:14 Source: patient, family and EMS Mode of arrival: EMS Limitations: other (dementia) History of Present Illness HPI Narrative: 77-year-old male the presents to the ED via [facility] for evaluation of syncopal episode with orthostatic hypotension. Patient apparently had a syncopal episode today while at Dr. Yoon's office. 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 Per daughter who provides most of the information of the patient himself is not the greatest historian but able to give some information. She states that apparently he has not been eating or drinking anything for the past couple of days. She herself does push fluids as well as ensure on the patient but she is concerned that at the [facility] he is not getting proper care. She is also concerned because patient also has a history of orthostatic hypotension which is known for him secondary to autonomic dysfunction he has been taking his medications and follows with Dr. Shannon for this but apparently whenever he is laying flat his blood pressures are always really high and whenever he is states his blood pressure does come down but not as severely as it happened today. Per the daughter the blood pressure was 50 systolic and came down from 170. Per daughter patient is usually hypotensive when he sits and worse when he stands. Patient for the most part does not stand anymore secondary to this. Also another concerned that the daughter and the patient habits the patient has been complaining of some weakness and per patient shortness of breath that comes and goes. The weakness appears to be more chronic and appears to have been worsening for the past 3 days. Per family he is not really doing well. They are not sure what is causing this. Patient does deny any cough or runny nose. No urinary bowel movement issues. He does state having throat pain. Related Data Home Medications Medication Instructions Recorded Confirmed midodrine 2.5 mg PO TID 06/16/18 06/22/18 butalbital-acetaminophen 2 tab PO BID PRN 06/22/18 06/22/18 imipramine HCl 50 mg PO HS 06/22/18 06/22/18 metoclopramide HCl [Reglan] 10 mg PO QID 06/22/18 06/22/18 montelukast 10 mg PO QPM 06/22/18 06/22/18 oxycodone 7.5 mg PO Q4-6H PRN 06/22/18 06/22/18 potassium chloride 10 meq PO BID 06/22/18 06/22/18 Allergies Allergy/AdvReac Type Severity Reaction Status Date / Time colchicine Allergy Severe Headache Verified 06/22/18 13:28 labetalol Allergy Intermediate Hives Verified 06/22/18 13:28 hydrochlorothiazide AdvReac Intermediate Diarrhea Verified 06/22/18 13:28 Review of Systems ROS: all other systems reviewed are negative [facility] Medical History Medical History Atrial fibrillation (Acute) Autonomic dysfunction (Acute) CHF (congestive heart failure) (Acute) History of kidney cancer (Acute) History of prostate cancer (Acute) Hypertension (Acute) Throat cancer (Acute) Surgical History Surgical History History of nephrectomy, unilateral (Acute) Hx of cardiac cath (Acute) Hx of colonoscopy (Acute) Hx of hemorrhoidectomy (Acute) Hx of prostatectomy (Acute) Family History Family History Brother Family history of cancer Social History Social History Substance History: No History of Abuse Second Hand Smoke Exposure: No Smoking Status: Never smoker How Often Do You Have a Drink Containing Alcohol: Never Recent Travel in [facility] within the Last 8 Weeks: No Recent Out of Country Travel within the Last 8 Weeks: No Immunization History Tetanus Immunization: Unsure Exam Narrative Exam Narrative: GENERAL: Well-appearing SKIN: Focused skin assessment warm/dry. HEAD: Atraumatic. Normocephalic. EYES: Pupils equal and round. No scleral icterus. No injection or drainage. ENT: No nasal bleeding or discharge. Mucous membranes pink and moist. Tongue is midline. No uvula deviation. Patient has what appears to be white exudates on the throat. Likely thrush. NECK: Trachea midline. No JVD. CARDIOVASCULAR: Regular rate and rhythm. No murmur appreciated. RESPIRATORY: No accessory muscle use. Clear to auscultation. Breath sounds equal bilaterally. GASTROINTESTINAL: Abdomen soft, non-tender, nondistended. Hepatic and splenic margins not palpable. MUSCULOSKELETAL: No obvious deformities. No clubbing. No cyanosis. No edema. Full range of motion of the upper and lower extremities bilaterally. 2+ pulses bilaterally. NEUROLOGICAL: Awake and alert. No obvious cranial nerve deficits. Motor grossly within normal limits. Normal speech. PSYCHIATRIC: Appropriate mood and affect; insight and judgment normal. Course Initial Documented Vital Signs Temperature 97.8 F 06/22/18 13:15 Pulse Rate 63 06/22/18 13:15 Respiratory Rate 16 06/22/18 13:15 Blood Pressure 141/82 H 06/22/18 13:15 Pulse Oximetry 95 06/22/18 13:15 Last Documented Vital Signs Temperature 97.5 F L 06/22/18 19:48 Pulse Rate 65 06/22/18 19:48 Respiratory Rate 18 06/22/18 19:48 Blood Pressure 140/87 06/22/18 19:48 Pulse Oximetry 96 06/22/18 19:48 Medical Decision Making MDM Narrative Medical decision making narrative: 77-year-old male the presents to the ED for evaluation of weakness. Patient was properly examined and was found to have signs and symptoms of unclear etiology at this time. Most of his symptoms appear to be related to his ongoing orthostatic hypotension which per family seems to have worsened. They are concerned that he may be more related to him not hydrating as well and not eating as much [facility] the [facility]. Patient had a syncopal episode in the presence of Dr. Yoon and that is why he was brought here for eval. Labs and imaging were ordered. Patient could not do orthostatics and did come down on his blood pressure significantly. He is very symptomatic with just sitting which per family it is worse than it used to be. Patient does have a UTI on his blood work. Otherwise his blood work appears to be very unremarkable. I did spoke with Dr. Mcgrath was push connector assembler for [employer] and she recommended increasing the patient's medications from 2.5 mg 3 times a day to 5 mg 3 times a day. In regards to the urinary tract infection recommend starting IV antibiotics as patient is symptomatic from this. Patient will likely need nystatin as well to help with discharge. Because of the patient's multiple comorbities I do recommend admission for further evaluation and treatment. Patient himself does appear to be not happy with the idea but daughter Elis who is the power of claims attorney stated that he will stay. Patient was started on ceftriaxone for the UTI. Case discussed with Dr. Hunter who agrees admission to his service. Per daughter apparently the recommended that Dr. Yoon be consulted as well as per daughter Dr. Yoon wanted to be consulted with the patient got admitted. Medical Screen Exam Complete: Yes Emergency Medical Condition: Yes Differential Diagnosis Differential Diagnosis: Oral candidiasis versus orthostatic hypotension versus syncope versus arrhythmia versus UTI versus weakness versus constipation versus medication side effect Medical Records Medical records reviewed: Yes I reviewed the patient's medical records. Lab Data Lab results reviewed: Yes I reviewed the patient's lab results. Result diagrams: 06/22/18 13:50 06/22/18 13:50 Lab Results 06/22/18 06/22/18 06/22/18 Range/Units 13:50 13:50 13:50 WBC 12.2 H (4.0-11.0) th/mm3 RBC 3.37 L (4.50-5.90) mil/mm3 Hgb 11.1 L (13.0-17.0) gm/dL Hct 33.0 L (39.0-51.0) % MCV 98.0 (80.0-100.0) fL MCH 32.9 (27.0-34.0) pg MCHC 33.6 (32.0-36.0) % RDW 15.7 (11.6-17.2) % Plt Count 269 (150-450) th/mm3 MPV 7.3 (7.0-11.0) fL Prelim Diff (Auto) Slide review pending Neut % (Auto) 70.6 H (16.0-70.0) % Lymph % (Auto) 22.7 (9.0-44.0) % Andrews % (Auto) 6.5 (0.0-8.0) % Eos % (Auto) 0.0 (0.0-4.0) % Baso % (Auto) 0.2 (0.0-2.0) % Neut # (Auto) 8.6 H (1.8-7.7) th/mm3 Lymph # (Auto) 2.8 (1.0-4.8) th/mm3 Andrews # (Auto) 0.8 (0.0-0.9) th/mm3 Eos # (Auto) 0.0 (0.0-0.4) th/mm3 Baso # (Auto) 0.0 (0.0-0.2) th/mm3 WBC Differential . Diff Scan Auto diff confirmed Differential Comment . Platelet Estimate Normal (Normal) Platelet Morphology Normal (Normal) Ovalocytes 1+ H (None) Acanthocytes (Spur) Occ H (None) Sodium 141 (136-145) meq/L Potassium 4.7 (3.5-5.1) meq/L Chloride 104 (98-107) meq/L Carbon Dioxide 31.1 (21.0-32.0) meq/L Anion Gap 6 (5-15) meq/L BUN 29 H (7-18) mg/dL Creatinine 1.28 (0.60-1.30) mg/dL Estimated GFR 54 L (>89) mL/min Random Glucose 134 H (74-106) mg/dL Calcium 8.4 L (8.5-10.1) mg/dL Magnesium 2.1 (1.5-2.5) mg/dL Total Bilirubin 0.7 (0.2-1.0) mg/dL AST 15 (15-37) U/L ALT 19 (12-78) U/L Alkaline Phosphatase 129 H (45-117) U/L Troponin I Less than 0.02 L (0.02-0.05) ng/mL B-Natriuretic Peptide 147 H (0-100) pg/mL Total Protein 6.4 (6.4-8.2) g/dL Albumin 2.8 L (3.4-5.0) g/dL Urine Color (Yellw/Straw) Urine Clarity (Clear) Urine pH (5.0-8.5) Ur Specific Anderson (1.002-1.035) Urine Protein (Neg-Trace) mg/dL Urine Glucose (UA) (Negative) mg/dL Urine Ketones (Negative) mg/dL Urine Occult Blood (Negative) Urine Nitrate (Negative) Urine Bilirubin (Negative) Urine Urobilinogen (Less than 2) mg/dL Ur Leukocyte Esterase (Negative) Urine RBC (0-3) /hpf Urine WBC (0-5) /hpf Urine WBC Clumps (None) Urine Bacteria (None) /hpf Hyaline Casts (0-3) /lpf Urine Mucus (Occasional) /lpf Micro UA Comment Ur Microscopic Review Urine Culture Comments 06/22/18 Range/Units 15:45 WBC (4.0-11.0) th/mm3 RBC (4.50-5.90) mil/mm3 Hgb (13.0-17.0) gm/dL Hct (39.0-51.0) % MCV (80.0-100.0) fL MCH (27.0-34.0) pg MCHC (32.0-36.0) % RDW (11.6-17.2) % Plt Count (150-450) th/mm3 MPV (7.0-11.0) fL Prelim Diff (Auto) Neut % (Auto) (16.0-70.0) % Lymph % (Auto) (9.0-44.0) % Andrews % (Auto) (0.0-8.0) % Eos % (Auto) (0.0-4.0) % Baso % (Auto) (0.0-2.0) % Neut # (Auto) (1.8-7.7) th/mm3 Lymph # (Auto) (1.0-4.8) th/mm3 Andrews # (Auto) (0.0-0.9) th/mm3 Eos # (Auto) (0.0-0.4) th/mm3 Baso # (Auto) (0.0-0.2) th/mm3 WBC Differential Diff Scan Differential Comment Platelet Estimate (Normal) Platelet Morphology (Normal) Ovalocytes (None) Acanthocytes (Spur) (None) Sodium (136-145) meq/L Potassium (3.5-5.1) meq/L Chloride (98-107) meq/L Carbon Dioxide (21.0-32.0) meq/L Anion Gap (5-15) meq/L BUN (7-18) mg/dL Creatinine (0.60-1.30) mg/dL Estimated GFR (>89) mL/min Random Glucose (74-106) mg/dL Calcium (8.5-10.1) mg/dL Magnesium (1.5-2.5) mg/dL Total Bilirubin (0.2-1.0) mg/dL AST (15-37) U/L ALT (12-78) U/L Alkaline Phosphatase (45-117) U/L Troponin I (0.02-0.05) ng/mL B-Natriuretic Peptide (0-100) pg/mL Total Protein (6.4-8.2) g/dL Albumin (3.4-5.0) g/dL Urine Color Loren (Yellw/Straw) Urine Clarity Cloudy H (Clear) Urine pH 7.0 (5.0-8.5) Ur Specific Anderson 1.021 (1.002-1.035) Urine Protein 30 H (Neg-Trace) mg/dL Urine Glucose (UA) Negative (Negative) mg/dL Urine Ketones Negative (Negative) mg/dL Urine Occult Blood Small H (Negative) Urine Nitrate Positive H (Negative) Urine Bilirubin Negative (Negative) Urine Urobilinogen 4 or greater (Less than 2) mg/dL Ur Leukocyte Esterase Large H (Negative) Urine RBC 6 H (0-3) /hpf Urine WBC 78 H (0-5) /hpf Urine WBC Clumps Few H (None) Urine Bacteria Moderate H (None) /hpf Hyaline Casts 19 (0-3) /lpf Urine Mucus Few H (Occasional) /lpf Micro UA Comment Cath-culture ind Ur Microscopic Review Not Reportable Urine Culture Comments Cath-cult indicated Imaging Data Attestation: I personally reviewed and interpreted this imaging study as follows : Radiologist's impression: Chest X-Ray 06/22/18 13:46 CONCLUSION: Negative for an acute process Chest CTA 06/22/18 13:47 CONCLUSION: 1. No PE is identified. There is no acute finding to explain the shortness of breath. 2. Dependent atelectasis in the right lung. Otherwise, lungs are clear. 3. Nonacute findings include severe coronary artery calcification and 1.9 cm subcutaneous nodule on the anterior midline chest likely representing a sebaceous cyst. Soft Tissue Neck CT 06/22/18 13:47 CONCLUSION: 1. Large ulcerating mass based on the left side that does cross the midline at base of tongue. Discharge Plan Discharge Disposition Patient Disposition: 30 Still Patient Discharge Details Diagnosis: Syncope, Orthostatic hypotension, Acute UTI Physicians Team ED Provider: Mere Jules ED Midlevel Provider: Liam Oro Primary Care Provider: Hong Castro Attending Provider: Leonid Hunter Other Providers: Severiano Yoon ED Status: Left Department Discharge Information Discharge Date/Time: 06/22/18 18:55
[2018-06-22] MEDS ORDERED: Bisacodyl 10 MG Supp RECTAL PRN (17:53)
[2018-06-22] MEDS ORDERED: Acetaminophen 325 MG Tablet PO PRN (17:53)
--- NOTE | 2018-06-22 17:56 | P.HP ---
History of Present Illness Service: [facility] Primary Care Physician: Hong Castro MD Chief Complaint: syncope History of Present Illness: This is a 77 year old male with history of atrial fibrillation, hypertension/ orthostatic hypotension, prostate and throat cancer. 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 He was recently admitted for A. fib with RVR and was in [place] re[facility]. He presented to the emergency room via [facility] for evaluation of syncopal episode with orthostatic hypotension. Patient was apparently getting fitted by for upcoming radiation. Patient is a poor historian, information is obtained from the medical record. Patient's daughter has already left. Apparently the patient has not been eating or drinking much for the last couple days. Patient indicates he is having some difficulty swallowing because of the cancer at the base of the tongue. Daughter has been trying to push fluids as well as Ensure. Patient has a history of orthostatic hypotension secondary to autonomic dysfunction. He follows up with Dr. Gale as outpatient. Apparently patient's blood pressures are always really high whenever he is laying flat and they come down severely when he stands. Daughter indicated the blood pressure went down to 50s from 170. Patient is usually hypotensive when he sits and worse when he stands. Patient is for the most part wheelchair- bound. He is currently on Midodrine. Cardiology was called from the emergency room, Dr. Mcgrath was covering and recommended to increase midodrine to 5 mg p.o. 3 times daily. Unable to do orthostatics in the emergency room as the blood pressure came down significantly. He has been complaining of feeling weak as well. There is no report of fever and chills. Patient complains of some nausea , no vomiting, no diarrhea. He has had occasional shortness of breath, no chest pain. Patient recalls passing out, indicates that he was sitting down. Denies any palpitations, no dizziness at this time. Patient has history of A. fib, currently sinus rhythm. Per review of home medications, he is not on Eliquis which he was back in April. Laboratory workup was completed, CBC remarkable for mild leukocytosis. Urinalysis positive for urinary tract infection. He was given Rocephin, cultures were obtained. Patient denies any urinary symptoms. Imaging studies were completed. Chest x-ray was negative. Chest CTA, no PE. CT of the neck showed large ulcerating mass based on the left side that is across the mid line at base of tongue. Patient is admitted for further evaluation and treatment. - Diagnosis (1) Syncope (2) Orthostatic hypotension (3) CAD (coronary artery disease) (4) Odynophagia (5) Debility (6) Squamous cell cancer of tongue (7) Acute UTI (8) Chronic kidney disease (CKD) Review of Systems All other systems reviewed negative except as stated in HPI [facility] - History History Provided By: Medical Office Professional Instructor / EMT - Medical History Medical History: Medical History (Last Updated 06/22/18 @ 18:32 by JEROME Kulkarni) Atrial fibrillation Autonomic dysfunction CHF (congestive heart failure) History of kidney cancer History of prostate cancer Hypertension Throat cancer - Surgical History Surgical History: Surgical History (Last Reviewed 06/22/18 @ 17:56 by JEROME Kulkarni) History of nephrectomy, unilateral Hx of cardiac cath Hx of colonoscopy Hx of hemorrhoidectomy Hx of prostatectomy - Family History Family History: Family History (Last Reviewed 06/22/18 @ 17:56 by JEROME Kulkarni) Brother Family history of cancer - Social History I have reviewed the patient's Social History: Yes - Tobacco History Second Hand Smoke Exposure: No Tobacco Use In Past 30 Days: No Smoking Status: Never smoker - Alcohol History How Often Do You Have a Drink Containing Alcohol: Never - Substance Use History Substance History: No History of Abuse - Travel History Recent Travel in the [place] Within the Last 8 Weeks: No Recent Travel Out of the Country Within the Last 8 Weeks: No - Immunization History Tetanus Immunization: Unsure Medications and Allergies Allergies Allergy/AdvReac Type Severity Reaction Status Date / Time colchicine Allergy Severe Headache Verified 06/22/18 13:28 labetalol Allergy Intermediate Hives Verified 06/22/18 13:28 hydrochlorothiazide AdvReac Intermediate Diarrhea Verified 06/22/18 13:28 Home Medications Medication Instructions Recorded Confirmed Type midodrine 2.5 mg PO TID 06/16/18 06/22/18 History butalbital-acetaminophen 2 tab PO BID PRN 06/22/18 06/22/18 History imipramine HCl 50 mg PO HS 06/22/18 06/22/18 History metoclopramide HCl [Reglan] 10 mg PO QID 06/22/18 06/22/18 History montelukast 10 mg PO QPM 06/22/18 06/22/18 History oxycodone 7.5 mg PO Q4-6H PRN 06/22/18 06/22/18 History potassium chloride 10 meq PO BID 06/22/18 06/22/18 History Exam Vital signs: Vital Signs 06/22/18 13:15 06/22/18 13:46 06/22/18 14:30 Temperature 97.8 F Pulse Rate 63 58 L Respiratory Rate 16 Blood Pressure 141/82 H Pulse Oximetry 95 97 06/22/18 15:12 06/22/18 16:43 Temperature 97.7 F 97.8 F Pulse Rate 58 L 60 Respiratory Rate 17 19 Blood Pressure 147/94 H 178/103 H Pulse Oximetry 98 97 Intake & Output 06/21/18 06/22/18 06/22/18 18:59 06:59 18:59 Intake Total 600 / 600 Balance 600 / 600 Weight 100.244 kg Intake: IV 600 / 600 NS Inj 500 ML @ 1000 mls/hr IV. 500 / 500 SIG BOLUS VARGAS Rx#:[id number] Rocephin Inj 1,000 MG In NS Inj 100 / 100 100 ML @ 200 mls/hr IV.SIG ONCE ONE Rx#:[id number] Narrative: GENERAL: 77-year-old frail-appearing male. SKIN: Skin fragile, warm and dry. HEAD: Atraumatic. Normocephalic. EYES: Pupils equal and round. No scleral icterus. No injection or drainage. ENT: No nasal bleeding or discharge. Oral mucosa with extensive thrush. NECK: Trachea midline. No JVD. CARDIOVASCULAR: Regular rate and rhythm. RESPIRATORY: No accessory muscle use. Clear to auscultation. Breath sounds equal bilaterally. GASTROINTESTINAL: Abdomen soft, non-tender, nondistended. Hepatic and splenic margins not palpable. MUSCULOSKELETAL: Extremities without clubbing, cyanosis, or edema. No obvious deformities. NEUROLOGICAL: Awake, oriented x3. No focal deficits. Speech clear PSYCHIATRIC: Appropriate mood and affect; insight and judgment normal. Poor historian Results - Labs CBC & Chem 7: 06/22/18 13:50 06/22/18 13:50 Labs: Laboratory Results - last 24 hr 06/22/18 06/22/18 06/22/18 13:50 13:50 13:50 WBC 12.2 H RBC 3.37 L Hgb 11.1 L Hct 33.0 L MCV 98.0 MCH 32.9 MCHC 33.6 RDW 15.7 Plt Count 269 MPV 7.3 Prelim Diff (Auto) Slide review pending Neut % (Auto) 70.6 H Lymph % (Auto) 22.7 [place] % (Auto) 6.5 Eos % (Auto) 0.0 Baso % (Auto) 0.2 Neut # (Auto) 8.6 H Lymph # (Auto) 2.8 [place] # (Auto) 0.8 Eos # (Auto) 0.0 Baso # (Auto) 0.0 WBC Differential . Diff Scan Auto diff confirmed Differential Comment . Platelet Estimate Normal Platelet Morphology Normal Ovalocytes 1+ H Acanthocytes (Spur) Occ H Sodium 141 Potassium 4.7 Chloride 104 Carbon Dioxide 31.1 Anion Gap 6 BUN 29 H Creatinine 1.28 Estimated GFR 54 L Random Glucose 134 H Calcium 8.4 L Magnesium 2.1 Total Bilirubin 0.7 AST 15 ALT 19 Alkaline Phosphatase 129 H Troponin I Less than 0.02 L B-Natriuretic Peptide 147 H Total Protein 6.4 Albumin 2.8 L Urine Color Urine Clarity Urine pH Ur Specific [place] Urine Protein Urine Glucose (UA) Urine Ketones Urine Occult Blood Urine Nitrate Urine Bilirubin Urine Urobilinogen Ur Leukocyte Esterase Urine RBC Urine WBC Urine WBC Clumps Urine Bacteria Hyaline Casts Urine Mucus Micro UA Comment Ur Microscopic Review Urine Culture Comments 06/22/18 15:45 WBC RBC Hgb Hct MCV MCH MCHC RDW Plt Count MPV Prelim Diff (Auto) Neut % (Auto) Lymph % (Auto) [place] % (Auto) Eos % (Auto) Baso % (Auto) Neut # (Auto) Lymph # (Auto) [place] # (Auto) Eos # (Auto) Baso # (Auto) WBC Differential Diff Scan Differential Comment Platelet Estimate Platelet Morphology Ovalocytes Acanthocytes (Spur) Sodium Potassium Chloride Carbon Dioxide Anion Gap BUN Creatinine Estimated GFR Random Glucose Calcium Magnesium Total Bilirubin AST ALT Alkaline Phosphatase Troponin I B-Natriuretic Peptide Total Protein Albumin Urine Color Loren Urine Clarity Cloudy H Urine pH 7.0 Ur Specific [place] 1.021 Urine Protein 30 H Urine Glucose (UA) Negative Urine Ketones Negative Urine Occult Blood Small H Urine Nitrate Positive H Urine Bilirubin Negative Urine Urobilinogen 4 or greater Ur Leukocyte Esterase Large H Urine RBC 6 H Urine WBC 78 H Urine WBC Clumps Few H Urine Bacteria Moderate H Hyaline Casts 19 Urine Mucus Few H Micro UA Comment Cath-culture ind Ur Microscopic Review Not Reportable Urine Culture Comments Cath-cult indicated - Imaging Impressions Chest X-Ray 06/22/18 13:46 CONCLUSION: Negative for an acute process Chest CTA 06/22/18 13:47 CONCLUSION: 1. No PE is identified. There is no acute finding to explain the shortness of breath. 2. Dependent atelectasis in the right lung. Otherwise, lungs are clear. 3. Nonacute findings include severe coronary artery calcification and 1.9 cm subcutaneous nodule on the anterior midline chest likely representing a sebaceous cyst. Soft Tissue Neck CT 06/22/18 13:47 CONCLUSION: 1. Large ulcerating mass based on the left side that does cross the midline at base of tongue. Caprini VTE Risk Assessment Caprini VTE Risk Assessment: Moderate/High Risk (score >= 2) Caprini Risk Assessment Model: Point Value = 1 Point Value = 2 Point Value = 3 Point Value = 5 Age 41-60 Minor surgery BMI > 25 kg/m2 Swollen legs Varicose veins or History of unexplained or recurrent spontaneous Oral contraceptives or hormone replacement Sepsis (< 1 month) Serious lung disease, including pneumonia (< 1 month) Abnormal pulmonary function Acute myocardial infarction Congestive heart failure (< 1 month) History of inflammatory bowel disease Medical patient at bed rest Age 61-74 Arthroscopic surgery Major open surgery (> 45 min) Laparoscopic surgery (> 45 min) Malignancy Confined to bed (> 72 hours) Immobilizing plaster cast Central venous access Age >= 75 History of VTE Family history of VTE Factor V Leiden Prothrombin [id number] Lupus anticoagulant Anticardiolipin antibodies Elevated serum homocysteine Heparin-induced thrombocytopenia Other congenital or acquired thrombophilia Stroke (< 1 month) Elective arthroplasty Hip, pelvis, or leg fracture Acute spinal cord injury (< 1 month) Prophylaxis Regimen: Total Risk Factor Score Risk Level Prophylaxis Regimen 0-1 Low Early ambulation 2 Moderate Order ONE of the following: *Sequential Compression Device (SCD) *Heparin 5000 units SQ BID 3-4 Higher Order ONE of the following medications: *Heparin 5000 units SQ TID *Enoxaparin/Lovenox 40 mg SQ daily (WT < 150 kg, CrCl > 30 mL/min) *Enoxaparin/Lovenox 30 mg SQ daily (WT < 150 kg, CrCl > 10-29 mL/min) *Enoxaparin/Lovenox 30 mg SQ BID (WT < 150 kg, CrCl > 30 mL/min) AND/OR *Sequential Compression Device (SCD) 5 or more Highest Order ONE of the following medications: *Heparin 5000 units SQ TID (Preferred with Epidurals) *Enoxaparin/Lovenox 40 mg SQ daily (WT < 150 kg, CrCl > 30 mL/min) *Enoxaparin/Lovenox 30 mg SQ daily (WT < 150 kg, CrCl > 10-29 mL/min) *Enoxaparin/Lovenox 30 mg SQ BID (WT < 150 kg, CrCl > 30 mL/min) AND *Sequential Compression Device (SCD) Assessment and Plan - Assessment (1) Syncope Code(s): R55 - Syncope and collapse Status: Acute (2) Orthostatic hypotension Code(s): I95.1 - Orthostatic hypotension Status: Chronic (3) CAD (coronary artery disease) Code(s): I25.10 - Atherosclerotic heart disease of [place] coronary artery without angina pectoris Status: Acute (4) Odynophagia Code(s): R13.10 - Dysphagia, unspecified Status: Acute (5) Debility Code(s): R53.81 - Other malaise Status: Chronic (6) Squamous cell cancer of tongue Code(s): C02.9 - Malignant neoplasm of tongue, unspecified Status: Chronic (7) Acute UTI Code(s): N39.0 - Urinary tract infection, site not specified Status: Acute (8) Chronic kidney disease (CKD) Code(s): N18.9 - Chronic kidney disease, unspecified Status: Chronic - Plan 77-year-old male with a history of A. fib, hypertension, orthostatic hypotension secondary to autonomic dysfunction, tongue cancer, dysphasia. Patient was admitted after having syncopal episode. Was noted with significant orthostasis, blood pressure dropped from 170s-50s with standing. Patient currently on Midrin at 2.5 mg p.o. 3 times daily. Was also found positive for urinary tract infection, denies any urinary symptoms, no fever, no chills. Patient with poor p.o. intake, has difficulty swallowing. Syncopal episode Orthostatic hypotension secondary to autonomic dysfunction, patient currently on Midodrine 2.5 mg p.o. 3 times daily. Blood pressure is mostly wheelchair-bound, blood pressure drops significantly with sitting and standing, usually high with laying flat. There may also be a component of dehydration as the patient has not been taking much p.o. due to tongue mass and difficulty swallowing -Continuous cardiac telemetry monitoring We will increase midodrine to 5 mg p.o. 3 times daily -We will hydrate cautiously normal saline at 50 an hour -We will not do orthostatics right now -Continue with [facility] [place] UTI Continue Rocephin 1 g IV daily and follow cultures History of hypertension Patient not on any blood pressure medications at this time -At this time we will avoid over treating elevated blood pressure. Continue to monitor closely. -We will have staff check blood pressures only sitting. Dysphagia, patient complains of difficulty swallowing. Has a mass at the base of the tongue Thrush Speech swallow eval We will order soft diet Nystatin swish and swallow Poorly differentiated invasive SCC of the tongue Patient is under the care of Dr. Yoon, was being fitted for radiation therapy Soft tissue neck CT shows large ulcerating mass based on the left side that does cross midline at base of tongue. We will consult Dr. Yoon to follow patient CKD 3 Patient is at baseline -Avoid nephrotoxic agents -Monitor renal indicis Continue with cautious hydration History of A. fib, patient currently sinus rhythm on monitor Patient was on Eliquis, not on his current medication profile Continuous cardiac telemetry Physical debility Patient complains of weakness, he is currently wheelchair-bound. Patient has had recent admissions [facility]. He is debilitated , has multiple comorbidities. -Consult PT for eval and treatment. We will repeat labs in the morning Plan of care discussed with patient and RN. Further management of the patient will be dependent on the hospital course Code Status: Full code Discussed Condition With: RN, pt Discharge Planning: DC 1-2 days back to [facility] (1) Syncope Qualifiers: Syncope type: vasovagal syncope Qualified Code(s): R55 - Syncope and collapse (8) Chronic kidney disease (CKD) Qualifiers: Chronic kidney disease stage: stage 3 (moderate) Qualified Code(s): N18.3 - Chronic kidney disease, stage 3 (moderate)
[2018-06-22] MEDS: Sod Chloride 0.9% Inj 1,000 ML IV.CONT SCH (18:38)
[2018-06-23 07:28] LABS: Baso % (Auto) 0.2 % (0.0-2.0); Hemoglobin 10.8 gm/dL (13.0-17.0); Lymph # (Auto) 2.8 th/mm3 (1.0-4.8); Lymph % (Auto) 24.3 % (9.0-44.0); Mean Corpuscular HGB Conc 34.8 % (32.0-36.0); Mean Corpuscular Hemoglobin 33.8 pg (27.0-34.0); Mean Corpuscular Volume 97.3 fL (80.0-100.0); Mean Platelet Volume 7.3 fL (7.0-11.0); Mono # (Auto) 0.8 th/mm3 (0.0-0.9); Mono % (Auto) 7.2 % (0.0-8.0); Neut # (Auto) 7.7 th/mm3 (1.8-7.7); Neut % (Auto) 68.3 % (16.0-70.0); Platelet Count 251 th/mm3 (150-450); Red Blood Count 3.18 mil/mm3 (4.50-5.90); Red Cell Distribution Width 15.1 % (11.6-17.2); White Blood Count 11.3 th/mm3 (4.0-11.0)
[2018-06-23 08:11] LABS: Calcium 8.1 mg/dL (8.5-10.1); Carbon Dioxide 29.4 meq/L (21.0-32.0); Potassium 3.6 meq/L (3.5-5.1)
[2018-06-23] MEDS ORDERED: Enoxaparin Inj 30 MG/0.3 ML Syringe SQ SCH (09:00)
--- NOTE | 2018-06-23 11:18 | P.PNIM ---
Subjective Interval history: Patient currently is without any complaints. No dizziness. Physical Exam Vital signs: Vital Signs 06/22/18 13:15 06/22/18 13:46 06/22/18 14:30 Temperature 97.8 F Pulse Rate 63 58 L Respiratory Rate 16 Blood Pressure 141/82 H Pulse Oximetry 95 97 06/22/18 15:12 06/22/18 16:43 06/22/18 18:45 Temperature 97.7 F 97.8 F 97.8 F Pulse Rate 58 L 60 61 Respiratory Rate 17 19 16 Blood Pressure 147/94 H 165/105 H 170/90 H Pulse Oximetry 98 97 99 06/22/18 19:48 06/22/18 19:56 06/22/18 20:15 Temperature 97.5 F L Pulse Rate 65 67 Respiratory Rate 18 18 Blood Pressure 140/87 Pulse Oximetry 96 06/22/18 23:35 06/23/18 00:04 06/23/18 04:00 Temperature 98.1 F 98.4 F Pulse Rate 64 61 68 Respiratory Rate 18 18 Blood Pressure 143/92 H 153/89 H Pulse Oximetry 95 97 06/23/18 04:16 06/23/18 06:14 06/23/18 08:00 Temperature 98.1 F Pulse Rate 70 68 Respiratory Rate 16 16 Blood Pressure 161/96 H Pulse Oximetry 100 Intake & Output 06/22/18 06/23/18 06/23/18 18:59 06:59 18:59 Intake Total 600 / 600 480 / 480 Output Total 325 / 325 Balance 600 / 600 155 / 155 Weight 100.244 kg 100.2 kg Intake: IV 600 / 600 NS Inj 500 ML @ 1000 mls/hr IV. 500 / 500 SIG BOLUS [facility] Rx#:[id number] Rocephin Inj 1,000 MG In NS Inj 100 / 100 100 ML @ 200 mls/hr IV.SIG ONCE ONE Rx#:[id number] Oral 480 / 480 Output: Urine 325 / 325 Other: # Voids 2 Date of Last Bowel Movement 06/21/18 Weight On Admission 100.2 kg Narrative: General patient in no acute distress HEENT extraocular movements are intact, oral thrush with lesion on the left side of the patient's tongue. No bleeding from the lesion. Cardiovascular S1-S2 audible, RRR, no murmurs rubs or gallops Respiratory clear to auscultation bilaterally Abdomen soft, nontender, nondistended, normal bowel sounds Extremities no edema 2+ distal pulses in bilateral upper and lower extremities Neuro left upper extremity weakness 2-3 out of 5 strength of the left upper extremity. Patient can move the rest of his extremities and sensation is intact bilaterally - Urinary Catheter Management Straight Cath placed during this visit: yes, but has since been removed by the nurse Reason for continuing: Decision to DC catheter Insertion date: 06/22/18 Insertion time: 16:00 Removal date: 06/22/18 Removal time: 16:02 Results - Labs CBC & Chem 7: 06/23/18 06:20 06/23/18 06:20 Laboratory Results - last 24 hr 06/22/18 06/22/18 06/22/18 13:50 13:50 13:50 WBC 12.2 H RBC 3.37 L Hgb 11.1 L Hct 33.0 L MCV 98.0 MCH 32.9 MCHC 33.6 RDW 15.7 Plt Count 269 MPV 7.3 Prelim Diff (Auto) Slide review pending Neut % (Auto) 70.6 H Lymph % (Auto) 22.7 [place] % (Auto) 6.5 Eos % (Auto) 0.0 Baso % (Auto) 0.2 Neut # (Auto) 8.6 H Lymph # (Auto) 2.8 [place] # (Auto) 0.8 Eos # (Auto) 0.0 Baso # (Auto) 0.0 WBC Differential . Diff Scan Auto diff confirmed Differential Comment . Platelet Estimate Normal Platelet Morphology Normal Ovalocytes 1+ H Acanthocytes (Spur) Occ H Sodium 141 Potassium 4.7 Chloride 104 Carbon Dioxide 31.1 Anion Gap 6 BUN 29 H Creatinine 1.28 Estimated GFR 54 L Random Glucose 134 H Calcium 8.4 L Magnesium 2.1 Total Bilirubin 0.7 AST 15 ALT 19 Alkaline Phosphatase 129 H Troponin I Less than 0.02 L B-Natriuretic Peptide 147 H Total Protein 6.4 Albumin 2.8 L Urine Color Urine Clarity Urine pH Ur Specific [place] Urine Protein Urine Glucose (UA) Urine Ketones Urine Occult Blood Urine Nitrate Urine Bilirubin Urine Urobilinogen Ur Leukocyte Esterase Urine RBC Urine WBC Urine WBC Clumps Urine Bacteria Hyaline Casts Urine Mucus Micro UA Comment Ur Microscopic Review Urine Culture Comments 06/22/18 06/23/18 06/23/18 15:45 06:20 06:20 WBC 11.3 H RBC 3.18 L Hgb 10.8 L Hct 31.0 L MCV 97.3 MCH 33.8 MCHC 34.8 RDW 15.1 Plt Count 251 MPV 7.3 Prelim Diff (Auto) Neut % (Auto) 68.3 Lymph % (Auto) 24.3 [place] % (Auto) 7.2 Eos % (Auto) 0.0 Baso % (Auto) 0.2 Neut # (Auto) 7.7 Lymph # (Auto) 2.8 [place] # (Auto) 0.8 Eos # (Auto) 0.0 Baso # (Auto) 0.0 WBC Differential . Diff Scan Differential Comment Auto diff final Platelet Estimate Platelet Morphology Ovalocytes Acanthocytes (Spur) Sodium 141 Potassium 3.6 D Chloride 105 Carbon Dioxide 29.4 Anion Gap 7 BUN 21 H Creatinine 0.96 Estimated GFR 76 L Random Glucose 88 Calcium 8.1 L Magnesium Total Bilirubin AST ALT Alkaline Phosphatase Troponin I B-Natriuretic Peptide Total Protein Albumin Urine Color Loren Urine Clarity Cloudy H Urine pH 7.0 Ur Specific [place] 1.021 Urine Protein 30 H Urine Glucose (UA) Negative Urine Ketones Negative Urine Occult Blood Small H Urine Nitrate Positive H Urine Bilirubin Negative Urine Urobilinogen 4 or greater Ur Leukocyte Esterase Large H Urine RBC 6 H Urine WBC 78 H Urine WBC Clumps Few H Urine Bacteria Moderate H Hyaline Casts 19 Urine Mucus Few H Micro UA Comment Cath-culture ind Ur Microscopic Review Not Reportable Urine Culture Comments Cath-cult indicated Microbiology 06/22/18 13:35 Blood - Peripheral Aerobic Blood Culture - Preliminary No growth in 1 day 06/22/18 13:35 Blood - Peripheral Anaerobic Blood Culture - Preliminary No growth in 1 day 06/22/18 13:50 Blood - Peripheral Aerobic Blood Culture - Preliminary No growth in 1 day 06/22/18 13:50 Blood - Peripheral Anaerobic Blood Culture - Preliminary No growth in 1 day - Imaging Impressions Chest X-Ray 06/22/18 13:46 CONCLUSION: Negative for an acute process Chest CTA 06/22/18 13:47 CONCLUSION: 1. No PE is identified. There is no acute finding to explain the shortness of breath. 2. Dependent atelectasis in the right lung. Otherwise, lungs are clear. 3. Nonacute findings include severe coronary artery calcification and 1.9 cm subcutaneous nodule on the anterior midline chest likely representing a sebaceous cyst. Soft Tissue Neck CT 06/22/18 13:47 CONCLUSION: 1. Large ulcerating mass based on the left side that does cross the midline at base of tongue. Assessment and Plan - Assessment (1) Syncope Code(s): R55 - Syncope and collapse Status: Acute (2) Orthostatic hypotension Code(s): I95.1 - Orthostatic hypotension Status: Chronic (3) CAD (coronary artery disease) Code(s): I25.10 - Atherosclerotic heart disease of [place] coronary artery without angina pectoris Status: Acute (4) Odynophagia Code(s): R13.10 - Dysphagia, unspecified Status: Acute (5) Debility Code(s): R53.81 - Other malaise Status: Chronic (6) Squamous cell cancer of tongue Code(s): C02.9 - Malignant neoplasm of tongue, unspecified Status: Chronic (7) Acute UTI Code(s): N39.0 - Urinary tract infection, site not specified Status: Acute (8) Chronic kidney disease (CKD) Code(s): N18.9 - Chronic kidney disease, unspecified Status: Chronic - Plan This patient is a 77-year-old male with a diagnosis of atrial fibrillation currently not on anticoagulation, hypertension, prostate and throat cancer. 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 He was admitted for atrial for ablation with rapid ventricular rate and was in [facility]. Prior the patient ended up having a syncopal episode and was found to have orthostatic hypotension. 1. Syncope likely secondary to orthostatic hypotension The patient was found to have orthostatic hypotension. Possibly from autonomic dysfunction. The patient currently is on midodrine 5 mg p.o. 3 times a day as per cardiology's recommendations which was increased as of yesterday. Patient is currently on IV fluids at 50 mL/h We will continue to monitor the patient's blood pressure closely. Currently the patient is hypertensive with a systolic blood pressure in the 150s. Patient has very labile blood pressures which has been a chronic issue as per cardiology notes. 2. Dysphasia, mass of the base of the tongue likely squamous cell carcinoma Radiation oncology was consulted. I will await the recommendations. Speech and swallow evaluated the patient and recommends a mechanical soft diet. Continue soft diet for now. 3. UTI Patient is afebrile Continue Rocephin. 4. Acute kidney injury Patient had an elevated serum creatinine of around 1.3. After initiation of IV fluids yesterday the patient's serum creatinine has improved to 0.9. Continue cautious IV fluids. 5. Atrial fibrillation The patient has A. fib with an elevated chads score. As per documentation previously the patient was on Eliquis after review of documentation in May of this year. It is unclear why he is currently not on anticoagulation. I will discussed this case with cardiology preferably with somebody from Dr. Ny office who is the patient's library monitor. As per the patient's daughter he was having bleeding from his tongue from the squamous cell carcinoma and anticoagulation possibly was stopped because of that. Patient is at high risk for stroke given his elevated chads score, the plan was discussed with the patient and his daughter who is at bedside. Continue Lovenox for DVT prophylaxis. Continue physical therapy. (1) Syncope Qualifiers: Syncope type: vasovagal syncope Qualified Code(s): R55 - Syncope and collapse (8) Chronic kidney disease (CKD) Qualifiers: Chronic kidney disease stage: stage 3 (moderate) Qualified Code(s): N18.3 - Chronic kidney disease, stage 3 (moderate)
[2018-06-23] MEDS: Sod Chloride 0.9% Inj 1,000 ML IV.CONT SCH (16:47)
--- NOTE | 2018-06-23 16:56 | P.CON ---
History of Present Illness Service: radiation oncology Primary Care Provider: Hong Castro MD Chief Complaint: syncope History of Present Illness: Patient inpatient. Drowsy. From rad onc clinic yesterday due to syncope. PMF - History History Provided By: Medical Record - Medical History Medical History: Medical History (Last Reviewed 06/23/18 @ 07:47 by Vamshi Thrasher) Atrial fibrillation Autonomic dysfunction CHF (congestive heart failure) History of kidney cancer History of prostate cancer Hypertension Throat cancer - Surgical History Surgical History: Surgical History (Last Reviewed 06/23/18 @ 07:47 by Vamshi Thrasher) History of nephrectomy, unilateral Hx of cardiac cath Hx of colonoscopy Hx of hemorrhoidectomy Hx of prostatectomy - Family History Family History: Family History (Last Reviewed 06/22/18 @ 17:56 by JEROME Kulkarni) Brother Family history of cancer - Tobacco History Second Hand Smoke Exposure: No Tobacco Use In Past 30 Days: No Smoking Status: Never smoker - Alcohol History How Often Do You Have a Drink Containing Alcohol: Never - Substance Use History Substance History: No History of Abuse - Travel History Recent Travel in the [place] Within the Last 8 Weeks: No Recent Travel Out of the Country Within the Last 8 Weeks: No - Immunization History Tetanus Immunization: Unsure Medications and Allergies Active Medications: Active Medications Acetaminophen (Tylenol) 650 mg PO Q4H PRN PRN Reason: Temp > 100.4 Al Hydroxide/Mg Hydroxide (Milk Of Magnesia Liq) 30 ml PO Q12H PRN PRN Reason: Mild Constipation Apixaban (Eliquis) 5 mg PO BID [facility] Last Admin: 06/23/18 13:02 Dose: 5 mg Aspirin (Aspirin Chew) 81 mg PO DAILY [facility] Bisacodyl (Dulcolax Supp) 10 mg RECTAL DAILY PRN PRN Reason: SEVERE CONSITIPATION Diltiazem HCl (Cardizem Cd 24hr) 240 mg PO DAILY [facility] Sodium Chloride (Ns Inj) 1,000 mls @ 50 mls/hr IV.CONT .Q20H [facility] Last Admin: 06/23/18 16:47 Dose: 50 mls/hr Ceftriaxone Sodium 1,000 mg/ (Sodium Chloride) 100 mls @ 200 mls/hr IV.SIG Q24H [facility] Imipramine HCl (Tofranil) 50 mg PO HS [facility] Last Admin: 06/22/18 23:31 Dose: 50 mg Lactulose (Lactulose Liq) 30 ml PO DAILY PRN PRN Reason: SEVERE CONSITIPATION Midodrine (Proamatine) 2.5 mg PO Q8H [facility] Montelukast Sodium (Singulair) 10 mg PO QPM [facility] Nystatin (Mycostatin) 500,000 unit PO Q8HR [facility] Last Admin: 06/23/18 13:03 Dose: 500,000 unit Ondansetron HCl (Zofran Inj) 4 mg IV.PUSH Q6H PRN PRN Reason: NAUSEA OR VOMITING Oxycodone HCl (Roxicodone) 7.5 mg PO Q4H PRN PRN Reason: Pain 5-10 Last Admin: 06/23/18 12:16 Dose: 7.5 mg Sennosides (Senokot) 17.2 mg PO Q12H PRN PRN Reason: Moderate Constipation Allergies Allergy/AdvReac Type Severity Reaction Status Date / Time colchicine Allergy Severe Headache Verified 06/22/18 13:28 labetalol Allergy Intermediate Hives Verified 06/22/18 13:28 hydrochlorothiazide AdvReac Intermediate Diarrhea Verified 06/22/18 13:28 Home Medications Medication Instructions Recorded Confirmed Type midodrine 2.5 mg PO TID 06/16/18 06/22/18 History butalbital-acetaminophen 2 tab PO BID PRN 06/22/18 06/22/18 History imipramine HCl 50 mg PO HS 06/22/18 06/22/18 History metoclopramide HCl [Reglan] 10 mg PO QID 06/22/18 06/22/18 History montelukast 10 mg PO QPM 06/22/18 06/22/18 History oxycodone 7.5 mg PO Q4-6H PRN 06/22/18 06/22/18 History potassium chloride 10 meq PO BID 06/22/18 06/22/18 History Physical Exam Vital signs: Vital Signs 06/22/18 18:45 06/22/18 19:48 06/22/18 19:56 Temperature 97.8 F 97.5 F L Pulse Rate 61 65 67 Respiratory Rate 16 18 Blood Pressure 170/90 H 140/87 Pulse Oximetry 99 96 06/22/18 20:15 06/22/18 23:35 06/23/18 00:04 Temperature 98.1 F Pulse Rate 64 61 Respiratory Rate 18 18 Blood Pressure 143/92 H Pulse Oximetry 95 06/23/18 04:00 06/23/18 04:16 06/23/18 06:14 Temperature 98.4 F Pulse Rate 68 70 Respiratory Rate 18 16 Blood Pressure 153/89 H Pulse Oximetry 97 06/23/18 08:00 06/23/18 09:00 06/23/18 12:00 Temperature 98.1 F 98.3 F Pulse Rate 68 72 67 Respiratory Rate 16 16 Blood Pressure 161/96 H 188/95 H Pulse Oximetry 96 99 06/23/18 12:44 06/23/18 15:06 06/23/18 16:00 Temperature 97.9 F Pulse Rate 74 69 Respiratory Rate 18 Blood Pressure 197/103 H Pulse Oximetry 96 979 H Intake & Output 06/22/18 06/23/18 06/23/18 18:59 06:59 18:59 Intake Total 600 / 600 480 / 480 1000 / 1000 Output Total 325 / 325 Balance 600 / 600 155 / 155 1000 / 1000 Weight 100.244 kg 100.2 kg Intake: IV 600 / 600 1000 / 1000 NS Inj 1,000 ML @ 50 mls/hr IV. 1000 / 1000 CONT .Q20H [facility] Rx#:[id number] NS Inj 500 ML @ 1000 mls/hr IV. 500 / 500 SIG [facility] Rx#:[id number] Rocephin Inj 1,000 MG In NS Inj 100 / 100 100 ML @ 200 mls/hr IV.SIG ONCE ONE Rx#:[id number] Oral 480 / 480 Output: Urine 325 / 325 Other: # Voids 2 Date of Last Bowel Movement 06/21/18 06/21/18 Weight On Admission 100.2 kg - Urinary Catheter Management Straight Cath placed during this visit: yes, but has since been removed by the nurse Reason for continuing: Decision to DC catheter Insertion date: 06/22/18 Insertion time: 16:00 Removal date: 06/22/18 Removal time: 16:02 Assessment and Plan - Plan goal to start XRT left base on tongue cancer soon. CT simulation yesterday.
[2018-06-23] MEDS: Montelukast 10 MG Tablet PO SCH (17:20)
[2018-06-23] MEDS: dilTIAZem CD 240 MG Capsule PO SCH (17:20)
[2018-06-24] MEDS: dilTIAZem CD 240 MG Capsule PO SCH (08:15)
[2018-06-24] MEDS ORDERED: dilTIAZem CD 120 MG Capsule PO SCH (09:00)
[2018-06-24] MEDS: Sod Chloride 0.9% Inj 1,000 ML IV.CONT SCH (13:52)
[2018-06-24] MEDS: Montelukast 10 MG Tablet PO SCH (17:00)
--- NOTE | 2018-06-24 20:13 | P.PNIM ---
Subjective Interval history: Patient currently does not have any specific complaints. He is laying down comfortably watching the [employer] game. He says he is looking forward to attempting to get up and walk with physical therapy. Physical Exam Vital signs: Vital Signs 06/23/18 23:53 06/23/18 23:55 06/24/18 04:00 Temperature 98.4 F Pulse Rate 62 59 L 65 Respiratory Rate 18 Blood Pressure 170/84 H Pulse Oximetry 98 06/24/18 04:34 06/24/18 08:00 06/24/18 10:34 Temperature 98.1 F 98.3 F Pulse Rate 67 65 Respiratory Rate 18 16 Blood Pressure 156/93 H 188/97 H Pulse Oximetry 97 94 L 95 06/24/18 12:00 06/24/18 15:31 Temperature 98.8 F 98.8 F Pulse Rate 63 64 Respiratory Rate 16 18 Blood Pressure 142/79 H 139/88 Pulse Oximetry 97 98 Intake & Output 06/24/18 06/24/18 06/25/18 06:59 18:59 06:59 Intake Total 1580 / 1580 Output Total Balance 1580 / 1580 Weight Intake: IV 1100 / 1100 NS Inj 1,000 ML @ 50 mls/hr IV. 1000 / 1000 CONT .Q20H [facility] Rx#:[id number] Rocephin Inj 1,000 MG In NS Inj 100 / 100 100 ML @ 200 mls/hr IV.SIG Q24H [facility] Rx#:[id number] Oral 480 / 480 Output: Urine Other: # Incontinent Voids # Urine Diapers 5 Date of Last Bowel Movement 06/21/18 Narrative: General patient in no acute distress HEENT extraocular movements are intact, oral thrush with lesion on the left side of the patient's tongue. No bleeding from the lesion. Cardiovascular S1-S2 audible, RRR, no murmurs rubs or gallops Respiratory clear to auscultation bilaterally Abdomen soft, nontender, nondistended, normal bowel sounds Extremities no edema 2+ distal pulses in bilateral upper and lower extremities Neuro left upper extremity weakness 2-3 out of 5 strength of the left upper extremity. Patient can move the rest of his extremities and sensation is intact bilaterally - Urinary Catheter Management Straight Cath placed during this visit: yes, but has since been removed by the nurse Reason for continuing: Decision to DC catheter Insertion date: 06/22/18 Insertion time: 16:00 Removal date: 06/22/18 Removal time: 16:02 Results - Labs CBC & Chem 7: 06/23/18 06:20 06/23/18 06:20 Laboratory Results - last 24 hr 06/22/18 15:45 Urine Color Loren Urine Clarity Cloudy H Urine pH 7.0 Ur Specific [place] 1.021 Urine Protein 30 H Urine Glucose (UA) Negative Urine Ketones Negative Urine Occult Blood Small H Urine Nitrate Positive H Urine Bilirubin Negative Urine Urobilinogen 4 or greater Ur Leukocyte Esterase Large H Urine RBC 6 H Urine WBC 78 H Urine WBC Clumps Few H Urine Bacteria Moderate H Hyaline Casts 19 Urine Mucus Few H Micro UA Comment Cath-culture ind Urine Culture Comments Cath-cult indicated Microbiology 06/22/18 13:35 Blood - Peripheral Aerobic Blood Culture - Preliminary No growth in 2 days 06/22/18 13:35 Blood - Peripheral Anaerobic Blood Culture - Preliminary No growth in 2 days 06/22/18 13:50 Blood - Peripheral Aerobic Blood Culture - Preliminary No growth in 2 days 06/22/18 13:50 Blood - Peripheral Anaerobic Blood Culture - Preliminary No growth in 2 days 06/22/18 15:45 Catheterized Urine Urine Culture - Preliminary gram negative rods Assessment and Plan - Assessment (1) Syncope Code(s): R55 - Syncope and collapse Status: Acute (2) Orthostatic hypotension Code(s): I95.1 - Orthostatic hypotension Status: Chronic (3) CAD (coronary artery disease) Code(s): I25.10 - Atherosclerotic heart disease of [place] coronary artery without angina pectoris Status: Acute (4) Odynophagia Code(s): R13.10 - Dysphagia, unspecified Status: Acute (5) Debility Code(s): R53.81 - Other malaise Status: Chronic (6) Squamous cell cancer of tongue Code(s): C02.9 - Malignant neoplasm of tongue, unspecified Status: Chronic (7) Acute UTI Code(s): N39.0 - Urinary tract infection, site not specified Status: Acute (8) Chronic kidney disease (CKD) Code(s): N18.9 - Chronic kidney disease, unspecified Status: Chronic - Plan This patient is a 77-year-old male with a diagnosis of atrial fibrillation currently not on anticoagulation, hypertension, prostate and throat cancer. 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 He was admitted for atrial for ablation with rapid ventricular rate and was in [facility]. Prior the patient ended up having a syncopal episode and was found to have orthostatic hypotension. 1. Syncope likely secondary to orthostatic hypotension Patient's blood pressure is much better controlled. I resume the patient's home dose of midodrine as he had a systolic blood pressure above 180 yesterday We will continue to monitor the patient's blood pressure closely. Patient has very labile blood pressures which has been a chronic issue as per cardiology notes. 2. Dysphasia, mass of the base of the tongue likely squamous cell carcinoma Radiation oncology was consulted and the patient will be started on treatment soon. I will follow-up with specific recommendations from radiation oncology tomorrow. Speech and swallow evaluated the patient and recommends a mechanical soft diet. Continue soft diet for now. 3. UTI Patient is afebrile Continue Rocephin. Culture shows E. coli. We will follow-up sensitivity. 5. Atrial fibrillation Continue Eliquis which the patient was taking at the longterm facility. Discharge planning, I will discussed the case with radiation oncology tomorrow to see if the patient can be discharged and continue treatment outpatient. Continue physical therapy. (1) Syncope Qualifiers: Syncope type: vasovagal syncope Qualified Code(s): R55 - Syncope and collapse (8) Chronic kidney disease (CKD) Qualifiers: Chronic kidney disease stage: stage 3 (moderate) Qualified Code(s): N18.3 - Chronic kidney disease, stage 3 (moderate)
--- NOTE | 2018-06-25 00:47 | ECG ---
Date Performed: 06/22/2018 Time Performed: 13:25:18 PTAGE: 77 years EKG: Sinus rhythm NORMAL ECG PREVIOUS TRACING : 04/25/2018 04.38 Since the previous tracing, no significant change noted DOCTOR: Win Rodriguez Interpretating Date/Time 06/25/2018 00:45:17
[2018-06-25] MEDS: dilTIAZem CD 240 MG Capsule PO SCH (11:18)
--- NOTE | 2018-06-25 16:49 | P.PNIM ---
Subjective Interval history: Patient does not have any complaints today. No dizziness, and the patient states he wants to walk. Patient appears comfortable at rest. Physical Exam Vital signs: Vital Signs 06/24/18 20:00 06/25/18 00:00 06/25/18 04:00 Temperature 97.5 F L 97.8 F 98.0 F Pulse Rate 60 62 65 Respiratory Rate 20 20 16 Blood Pressure 173/89 H 178/98 H 166/88 H Pulse Oximetry 97 96 97 06/25/18 08:00 06/25/18 12:00 Temperature 97.6 F 97.1 F L Pulse Rate 68 71 Respiratory Rate 18 18 Blood Pressure 180/105 H 138/78 Pulse Oximetry 96 97 Intake & Output 06/24/18 06/25/18 06/25/18 18:59 06:59 18:59 Intake Total 1580 / 1580 180 / 180 Output Total 300 / 300 Balance 1580 / 1580 -120 / -120 Weight 77.1 kg Intake: IV 1100 / 1100 NS Inj 1,000 ML @ 50 mls/hr IV. 1000 / 1000 CONT .Q20H [facility]AS Rx#:[id number] Rocephin Inj 1,000 MG In NS Inj 100 / 100 100 ML @ 200 mls/hr IV.SIG Q24H [facility]AS Rx#:[id number] Oral 480 / 480 180 / 180 Output: Urine 300 / 300 Other: # Incontinent Voids 1 # Urine Diapers 5 Date of Last Bowel Movement 06/21/18 06/22/18 # Bowel Movements 0 Narrative: General patient in no acute distress HEENT extraocular movements are intact, oral thrush with lesion on the left side of the patient's tongue. No bleeding from the lesion. Cardiovascular S1-S2 audible, RRR, no murmurs rubs or gallops Respiratory clear to auscultation bilaterally Abdomen soft, nontender, nondistended, normal bowel sounds Extremities no edema 2+ distal pulses in bilateral upper and lower extremities Neuro left upper extremity weakness 2-3 out of 5 strength of the left upper extremity. Patient can move the rest of his extremities and sensation is intact bilaterally. - Urinary Catheter Management Straight Cath placed during this visit: yes, but has since been removed by the nurse Reason for continuing: Decision to DC catheter Insertion date: 06/22/18 Insertion time: 16:00 Removal date: 06/22/18 Removal time: 16:02 Results - Labs CBC & Chem 7: 06/23/18 06:20 06/23/18 06:20 Microbiology 06/22/18 13:35 Blood - Peripheral Aerobic Blood Culture - Preliminary No growth in 3 days 06/22/18 13:35 Blood - Peripheral Anaerobic Blood Culture - Preliminary No growth in 3 days 06/22/18 13:50 Blood - Peripheral Aerobic Blood Culture - Preliminary No growth in 3 days 06/22/18 13:50 Blood - Peripheral Anaerobic Blood Culture - Preliminary No growth in 3 days 06/22/18 15:45 Catheterized Urine Urine Culture - Final Escherichia coli Proteus mirabilis Assessment and Plan - Assessment (1) Syncope Code(s): R55 - Syncope and collapse Status: Acute (2) Orthostatic hypotension Code(s): I95.1 - Orthostatic hypotension Status: Chronic (3) CAD (coronary artery disease) Code(s): I25.10 - Atherosclerotic heart disease of [place] coronary artery without angina pectoris Status: Acute (4) Odynophagia Code(s): R13.10 - Dysphagia, unspecified Status: Acute (5) Debility Code(s): R53.81 - Other malaise Status: Chronic (6) Squamous cell cancer of tongue Code(s): C02.9 - Malignant neoplasm of tongue, unspecified Status: Chronic (7) Acute UTI Code(s): N39.0 - Urinary tract infection, site not specified Status: Acute (8) Chronic kidney disease (CKD) Code(s): N18.9 - Chronic kidney disease, unspecified Status: Chronic - Plan This patient is a 77-year-old male with a diagnosis of atrial fibrillation currently not on anticoagulation, hypertension, prostate and throat cancer. 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 He was admitted for atrial for ablation with rapid ventricular rate and was in [facility]. Prior the patient ended up having a syncopal episode and was found to have orthostatic hypotension. 1. Syncope likely secondary to orthostatic hypotension No episodes of hypotension. Patient's blood pressure is running between 150 and 170. The patient has very labile blood pressures which has been chronic issue for the patient as per previous cardiology notes. We will continue the current blood pressure medications for today and continue to monitor his blood pressure. 2. Dysphasia, mass of the base of the tongue likely squamous cell carcinoma CT simulation was done [address] As per Dr. osorio note the goal is to start XRT for the patient's tongue cancer soon. Case was discussed with case management today and the patient can be transferred back to his rehab facility. Plan is for potential discharge tomorrow after authorization from insurance. We will follow-up with case management. 3. UTI Patient is afebrile Continue Rocephin. Culture shows E. coli, and Proteus mirabilis. Sensitive to Rocephin. When patient is discharged we can do p.o. Bactrim. 5. Atrial fibrillation Continue Eliquis which the patient was taking at the senior living facility. Discharge planning, patient will likely be discharged tomorrow. Case discussed with case management. He can continue to follow-up outpatient with radiation oncology for further management and treatment. Continue physical therapy. (1) Syncope Qualifiers: Syncope type: vasovagal syncope Qualified Code(s): R55 - Syncope and collapse (8) Chronic kidney disease (CKD) Qualifiers: Chronic kidney disease stage: stage 3 (moderate) Qualified Code(s): N18.3 - Chronic kidney disease, stage 3 (moderate)
[2018-06-25] MEDS: Montelukast 10 MG Tablet PO SCH (19:58)
[2018-06-25] MEDS: Sod Chloride 0.9% Inj 1,000 ML IV.CONT SCH (19:59)
[2018-06-26] MEDS: Sod Chloride 0.9% Inj 1,000 ML IV.CONT SCH ×2 (01:01→21:57)
[2018-06-26] MEDS: dilTIAZem CD 240 MG Capsule PO SCH (09:50)
--- NOTE | 2018-06-26 17:53 | P.DS ---
Date of admission: 06/24/18 20:13 Primary care physician: Hong Castro MD Brief History from admission: This patient is a 77-year-old male with a diagnosis of atrial fibrillation currently not on anticoagulation, hypertension, prostate and throat cancer. 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 He was admitted for atrial for ablation with rapid ventricular rate and was in [facility]. Prior the patient ended up having a syncopal episode and was found to have orthostatic hypotension. DS: Diagnosis - Discharge Diagnosis (1) Syncope Status: Acute (2) Orthostatic hypotension Status: Chronic (3) CAD (coronary artery disease) Status: Acute (4) Odynophagia Status: Acute (5) Debility Status: Chronic (6) Squamous cell cancer of tongue Status: Chronic (7) Acute UTI Status: Acute (8) Chronic kidney disease (CKD) Status: Chronic DS: Summary Hospital Course: This patient is a 77-year-old male with a diagnosis of atrial fibrillation on Eliquis, hypertension, prostate and throat cancer. 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 He was admitted for was admitted after having a syncopal episode and was found to be hypotensive on evaluation. 1. Syncope secondary to orthostatic hypotension. 2. Atrial fibrillation The patient has had a history of very labile blood pressures. I evaluated recent documentation from the patient's lobby concierge where this was a documented. Initially the patient had his dose of midodrine increased and his blood pressure responded appropriately. After a day of evaluation the patient's blood pressure was significantly elevated dose to what he was previously getting. After review of the patient's medications he was also taking imipramine which could also potentially cause orthostatic hypotension. This medication was held on admission, and we will continue to hold it after he is discharged. He is currently on Cardizem for rate control. Continue Eliquis. 3. Dysphagia secondary to squamous cell carcinoma of the tongue The patient was evaluated by speech therapist who recommends a mechanical soft diet with thin liquids. He was also evaluated by radiation oncology and the goal is to start XRT for the patient's tongue cancer soon. He should follow-up outpatient with Dr. Yoon and his primary care physician in the next 1 week. 4. Hypertension The patient has very labile blood pressure. Currently his blood pressure is 128 /76. However over the past couple of days his blood pressures has been running between 120 and 180. His blood pressure should continue to be monitored and his blood pressure medications can be adjusted as needed. 5. Urinary tract infection The patient's urinalysis showed a UTI, urine culture is growing E. coli which was sensitive to Rocephin. Continue ciprofloxacin for 3 more days. The patient will need care at a snf facility, currently he is unable to ambulate. Physical therapy has been working with him and recommends that he use a wheelchair. He can continue with physical therapy at the snf facility after discharge. - Time Spent with Patient Total time spent providing and/or coordinating discharge services: Greater than 30 minutes - Quality: VTE Deep Vein Thrombosis/Pulmonary Embolism Present on Admission: No Exam Vital signs: Vital Signs 06/25/18 20:00 06/26/18 00:00 06/26/18 04:00 Temperature 98.5 F 98.5 F 97.9 F Pulse Rate 56 L 51 L 64 Respiratory Rate 20 20 20 Blood Pressure 157/95 H 162/98 H 182/96 H Pulse Oximetry 96 95 98 06/26/18 07:51 06/26/18 08:04 06/26/18 11:56 Temperature 98.3 F 97.5 F L Pulse Rate 65 64 64 Respiratory Rate 16 16 Blood Pressure 165/85 H 167/96 H Pulse Oximetry 98 99 06/26/18 12:00 06/26/18 15:35 Temperature 97.3 F L Pulse Rate 62 57 L Respiratory Rate 16 Blood Pressure 128/80 Pulse Oximetry 96 Intake & Output 06/25/18 06/26/18 06/26/18 18:59 06:59 18:59 Intake Total 480 / 480 2099 / 2100 Output Total 200 / 200 600 / 600 Balance 280 / 280 1500 / 1500 Weight 77 kg Intake: IV 2099 / 2100 NS Inj 1,000 ML @ 50 mls/hr IV. 1999 / 1999 CONT .Q20H [facility] Rx#:[id number] Rocephin Inj 1,000 MG In NS Inj 100 / 100 100 ML @ 200 mls/hr IV.SIG Q24H [facility]AS Rx#:[id number] Oral 480 / 480 Output: Urine 200 / 200 600 / 600 Other: # Voids 1 # Incontinent Voids 3 # Urine Diapers 3 Date of Last Bowel Movement 06/22/18 06/25/18 Narrative: General patient in no acute distress HEENT extraocular movements are intact, oral thrush has improved. No bleeding from the lesion. Cardiovascular S1-S2 audible, RRR, no murmurs rubs or gallops Respiratory clear to auscultation bilaterally Abdomen soft, nontender, nondistended, normal bowel sounds Extremities no edema 2+ distal pulses in bilateral upper and lower extremities Neuro left upper extremity weakness 2-3 out of 5 strength of the left upper extremity. Patient can move the rest of his extremities and sensation is intact bilaterally. Results Procedures completed during hospitalization: CT simulation Labs on day of discharge: Preliminary micro results at discharge 06/22/18 13:35 Aerobic Blood Culture - Preliminary Blood - Peripheral No growth in 4 days Anaerobic Blood Culture - Preliminary No growth in 4 days 06/22/18 13:50 Aerobic Blood Culture - Preliminary Blood - Peripheral No growth in 4 days Anaerobic Blood Culture - Preliminary No growth in 4 days - Impressions ITS Impressions Chest X-Ray 06/22/18 13:46 CONCLUSION: Negative for an acute process Chest CTA 06/22/18 13:47 CONCLUSION: 1. No PE is identified. There is no acute finding to explain the shortness of breath. 2. Dependent atelectasis in the right lung. Otherwise, lungs are clear. 3. Nonacute findings include severe coronary artery calcification and 1.9 cm subcutaneous nodule on the anterior midline chest likely representing a sebaceous cyst. Soft Tissue Neck CT 06/22/18 13:47 CONCLUSION: 1. Large ulcerating mass based on the left side that does cross the midline at base of tongue. Discharge Plan - Discharge Disposition Patient Disposition: Discharge to SNF - Discharge Condition Condition: Stable - Discharge Order Discharge Orders: Discharge Order (Routine); Ordered 06/26/18 Ordered By: Dwaine Scanlon - Physicians Team Primary Care Provider: Hong Castro Attending Provider: Dwaine Scanlon Other Providers: Severiano Yoon MD ; [email or web address]
[2018-06-26] MEDS: Montelukast 10 MG Tablet PO SCH (21:57)
[2018-06-27] MEDS: dilTIAZem CD 240 MG Capsule PO SCH (10:08)
--- NOTE | 2018-06-27 13:00 | P.PNIM ---
Subjective Interval history: Patient is laying down. He is in no acute distress. He is currently accompanied by his daughter at bedside. He does not have any complaints today. Physical Exam Vital signs: Vital Signs 06/26/18 15:35 06/26/18 16:00 06/26/18 20:00 Temperature 97.3 F L 98.2 F Pulse Rate 57 L 58 L 93 H Respiratory Rate 16 18 Blood Pressure 128/80 163/86 H Pulse Oximetry 96 97 06/26/18 20:39 06/26/18 23:28 06/26/18 23:30 Temperature 98.4 F Pulse Rate 56 L 59 L Respiratory Rate 18 Blood Pressure 177/95 H 108/74 Pulse Oximetry 96 06/27/18 00:00 06/27/18 03:57 06/27/18 04:31 Temperature 98.1 F Pulse Rate 57 L 57 L 64 Respiratory Rate 18 Blood Pressure 188/91 H Pulse Oximetry 98 06/27/18 05:24 06/27/18 09:47 Temperature 98.4 F Pulse Rate 66 Respiratory Rate 16 18 Blood Pressure 180/96 H Pulse Oximetry 98 Intake & Output 06/26/18 06/27/18 06/27/18 18:59 06:59 18:59 Intake Total 520 / 520 1110 / 1110 Output Total 750 / 750 Balance 520 / 520 360 / 360 Weight 77.3 kg Intake: IV 1110 / 1110 NS Inj 1,000 ML @ 50 mls/hr IV. 1000 / 1000 CONT .Q20H [facility]AS Rx#:[id number] Rocephin Inj 1,000 MG In NS Inj 110 / 110 100 ML @ 200 mls/hr IV.SIG Q24H [facility]AS Rx#:[id number] Oral 520 / 520 Output: Urine 750 / 750 Other: # Voids 1 # Incontinent Voids 2 # Urine Diapers 2 Date of Last Bowel Movement 06/25/18 Narrative: General patient in no acute distress HEENT extraocular movements are intact, no bleeding from the lesion of the tongue. Cardiovascular S1-S2 audible, RRR, no murmurs rubs or gallops Respiratory clear to auscultation bilaterally Abdomen soft, nontender, nondistended, normal bowel sounds Extremities no edema 2+ distal pulses in bilateral upper and lower extremities Neuro left upper extremity weakness 2-3 out of 5 strength of the left upper extremity. Patient can move the rest of his extremities and sensation is intact bilaterally. - Urinary Catheter Management Straight Cath placed during this visit: yes, but has since been removed by the nurse Reason for continuing: Decision to DC catheter Insertion date: 06/22/18 Insertion time: 16:00 Removal date: 06/22/18 Removal time: 16:02 Results - Labs CBC & Chem 7: 06/23/18 06:20 06/23/18 06:20 Microbiology 06/22/18 13:35 Blood - Peripheral Aerobic Blood Culture - Final No growth in 5 days 06/22/18 13:35 Blood - Peripheral Anaerobic Blood Culture - Final No growth in 5 days 06/22/18 13:50 Blood - Peripheral Aerobic Blood Culture - Final No growth in 5 days 06/22/18 13:50 Blood - Peripheral Anaerobic Blood Culture - Final No growth in 5 days - Procedures CT simulation Assessment and Plan - Assessment (1) Syncope Code(s): R55 - Syncope and collapse Status: Acute (2) Orthostatic hypotension Code(s): I95.1 - Orthostatic hypotension Status: Chronic (3) CAD (coronary artery disease) Code(s): I25.10 - Atherosclerotic heart disease of [place] coronary artery without angina pectoris Status: Acute (4) Odynophagia Code(s): R13.10 - Dysphagia, unspecified Status: Acute (5) Debility Code(s): R53.81 - Other malaise Status: Chronic (6) Squamous cell cancer of tongue Code(s): C02.9 - Malignant neoplasm of tongue, unspecified Status: Chronic (7) Acute UTI Code(s): N39.0 - Urinary tract infection, site not specified Status: Acute (8) Chronic kidney disease (CKD) Code(s): N18.9 - Chronic kidney disease, unspecified Status: Chronic - Plan This patient is a 77-year-old male with a diagnosis of atrial fibrillation on Eliquis, hypertension, prostate and throat cancer. 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 He was admitted for was admitted after having a syncopal episode and was found to be hypotensive on evaluation. 1. Syncope secondary to orthostatic hypotension. 2. Atrial fibrillation The patient has had a history of very labile blood pressures. 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 Initially the patient had his dose of midodrine increased and his blood pressure responded appropriately. After a day of evaluation the patient's blood pressure was significantly elevated dose to what he was previously getting. After review of the patient's medications he was also taking imipramine which could also potentially cause orthostatic hypotension. This medication was held on admission, and we will continue to hold it after he is discharged. He is currently on Cardizem for rate control. Continue Eliquis. 3. Dysphagia secondary to squamous cell carcinoma of the tongue The patient was evaluated by speech therapist who recommends a mechanical soft diet with thin liquids. He was also evaluated by radiation oncology and the goal is to start XRT for the patient's tongue cancer in approximately 1 week. He should follow-up outpatient with Dr. Yoon and his primary care physician in the next 1 week. 4. Hypertension The patient has very labile blood pressure. Currently his blood pressure is 128 /76. However over the past couple of days his blood pressures has been running between 120 and 180. His blood pressure should continue to be monitored and his blood pressure medications can be adjusted as needed. Norvasc will also be started. 5. Urinary tract infection The patient's urinalysis showed a UTI, urine culture is growing E. coli and Proteus which was sensitive to Bactrim. Continue Bactrim for 2 more days. [facility] currently he is unable to ambulate. Physical therapy has been working with him and recommends that he use a wheelchair. He can continue with physical [facility] after discharge. 6. Depression Patient was previously on imipramine. This medication has not been started while the patient has been in house, due to his orthostatic hypotension. He should follow-up with his primary care doctor and he should be reassessed and added on a different agent if needed for depression. (1) Syncope Qualifiers: Syncope type: vasovagal syncope Qualified Code(s): R55 - Syncope and collapse (8) Chronic kidney disease (CKD) Qualifiers: Chronic kidney disease stage: stage 3 (moderate) Qualified Code(s): N18.3 - Chronic kidney disease, stage 3 (moderate)
[2018-06-27] MEDS: amLODIPine 5 MG Tablet PO SCH (13:26)
[2018-06-27] MEDS: Montelukast 10 MG Tablet PO SCH (17:17)
[2018-06-27] MEDS: Sod Chloride 0.9% Inj 1,000 ML IV.CONT SCH (20:57)
[2018-06-28] MEDS: dilTIAZem CD 240 MG Capsule PO SCH (09:41)
[2018-06-28] MEDS: amLODIPine 5 MG Tablet PO SCH (09:42)
[2018-06-28] MEDS: Sod Chloride 0.9% Inj 1,000 ML IV.CONT SCH (15:41)
--- NOTE | 2018-06-28 16:36 | P.PNIM ---
Subjective Interval history: Nursing denies any acute deteriorations overnight. Patient himself seems to be quite nonverbal. Has garbled speech Physical Exam Vital signs: Vital Signs 06/27/18 17:15 06/27/18 19:25 06/27/18 20:50 Temperature 97.8 F 98.2 F Pulse Rate 63 63 58 L Respiratory Rate 16 20 Blood Pressure 133/79 166/69 H Pulse Oximetry 94 L 95 06/28/18 00:05 06/28/18 00:24 06/28/18 00:43 Temperature 97.8 F Pulse Rate 57 L 88 Respiratory Rate 20 15 Blood Pressure 159/98 H Pulse Oximetry 94 L 06/28/18 04:00 06/28/18 04:08 06/28/18 07:49 Temperature 98.1 F 96.9 F L Pulse Rate 62 64 67 Respiratory Rate 16 16 Blood Pressure 142/88 H Pulse Oximetry 97 97 06/28/18 07:51 06/28/18 10:00 06/28/18 11:36 Temperature 98.2 F Pulse Rate 63 65 Respiratory Rate 16 Blood Pressure 171/103 H 131/82 Pulse Oximetry 99 06/28/18 15:08 Temperature Pulse Rate 54 L Respiratory Rate Blood Pressure Pulse Oximetry Intake & Output 06/27/18 06/28/18 06/28/18 18:59 06:59 18:59 Intake Total 560 / 560 1000 / 1000 500 / 500 Output Total 400 / 400 Balance 160 / 160 1000 / 1000 500 / 500 Weight 77.3 kg Intake: IV 110 / 110 1000 / 1000 500 / 500 NS Inj 1,000 ML @ 50 mls/hr IV. 1000 / 1000 500 / 500 CONT .Q20H [facility]ARGAS Rx#:[id number] Rocephin Inj 1,000 MG In NS Inj 110 / 110 100 ML @ 200 mls/hr IV.SIG Q24H [facility]ARGAS Rx#:[id number] Oral 450 / 450 Output: Urine 400 / 400 Other: # Voids 1 # Incontinent Voids 3 # Urine Diapers 1 Date of Last Bowel Movement 06/25/18 06/25/18 # Bowel Movements 0 Narrative: Regular rate rhythm, no murmurs Clear lungs bilaterally unlabored breathing - Urinary Catheter Management Straight Cath placed during this visit: yes, but has since been removed by the nurse Reason for continuing: Decision to DC catheter Insertion date: 06/22/18 Insertion time: 16:00 Removal date: 06/22/18 Removal time: 16:02 Results - Labs CBC & Chem 7: 06/23/18 06:20 06/23/18 06:20 - Procedures CT simulation Assessment and Plan - Assessment (1) Syncope Code(s): R55 - Syncope and collapse Status: Acute (2) Orthostatic hypotension Code(s): I95.1 - Orthostatic hypotension Status: Chronic (3) CAD (coronary artery disease) Code(s): I25.10 - Atherosclerotic heart disease of [place] coronary artery without angina pectoris Status: Acute (4) Odynophagia Code(s): R13.10 - Dysphagia, unspecified Status: Acute (5) Debility Code(s): R53.81 - Other malaise Status: Chronic (6) Squamous cell cancer of tongue Code(s): C02.9 - Malignant neoplasm of tongue, unspecified Status: Chronic (7) Acute UTI Code(s): N39.0 - Urinary tract infection, site not specified Status: Acute (8) Chronic kidney disease (CKD) Code(s): N18.9 - Chronic kidney disease, unspecified Status: Chronic - Plan This patient is a 77-year-old male with a diagnosis of atrial fibrillation on Eliquis, hypertension, prostate and throat cancer. 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 He was admitted for was admitted after having a syncopal episode and was found to be hypotensive on evaluation. Was started on midodrine and IV fluids. Pressures improved, stopped from taking imipramine for possible cause of orthostasis. Then became very hypotensive, started on antihypertensives. Found to have UTI, started on antibiotics (Rocephin). syncope secondary to orthostatic hypotension. Atrial fibrillation -Refrain from restarting home imipramine -Cardizem for rate control -Continue Eliquis. Dysphagia secondary to squamous cell carcinoma of the tongue - mechanical soft diet with thin liquids per ST - f/u w/ oncology outpt 4. Hypertension The patient has very labile blood pressure. Started on Norvasc yesterday, pressure still hypertensive by tomorrow can start lisinopril. 5. Urinary tract infection E. coli and Proteus which was sensitive to Bactrim. Antibiotics for 1 more day 6. Depression Patient was previously on imipramine. This medication has not been started while the patient has been in house, due to his orthostatic hypotension. He should follow-up with his primary care doctor and he should be reassessed and added on a different agent if needed for depression. Pending SNF placement since 2 days ago. Discharge Planning: pending SNF placement (1) Syncope Qualifiers: Syncope type: vasovagal syncope Qualified Code(s): R55 - Syncope and collapse (8) Chronic kidney disease (CKD) Qualifiers: Chronic kidney disease stage: stage 3 (moderate) Qualified Code(s): N18.3 - Chronic kidney disease, stage 3 (moderate)
[2018-06-28] MEDS: Montelukast 10 MG Tablet PO SCH (18:50)
[2018-06-29] MEDS: dilTIAZem CD 240 MG Capsule PO SCH (08:00)
[2018-06-29] MEDS: amLODIPine 5 MG Tablet PO SCH (08:00)
[2018-06-29] MEDS: Sod Chloride 0.9% Inj 1,000 ML IV.CONT SCH (12:23)
--- NOTE | 2018-06-29 16:37 | P.PNIM ---
Subjective Interval history: No acute changes overnight. Patient looking forward to rehab. Physical Exam Vital signs: Vital Signs 06/28/18 17:52 06/28/18 19:00 06/28/18 20:00 Temperature 98.7 F 97.6 F Pulse Rate 72 64 45 L Respiratory Rate 16 16 Blood Pressure 142/89 H 146/96 H Pulse Oximetry 97 96 06/28/18 23:00 06/29/18 00:00 06/29/18 01:15 Temperature 97.5 F L Pulse Rate 58 L 64 Respiratory Rate 12 Blood Pressure 170/109 H 155/110 H Pulse Oximetry 94 L 06/29/18 03:00 06/29/18 04:00 06/29/18 07:29 Temperature 97.7 F 98.2 F Pulse Rate 61 66 67 Respiratory Rate 12 16 Blood Pressure 150/93 H 157/106 H Pulse Oximetry 97 98 06/29/18 07:32 06/29/18 12:29 Temperature 96.8 F L Pulse Rate 81 Respiratory Rate Blood Pressure 171/96 H 111/76 Pulse Oximetry 98 Intake & Output 06/28/18 06/29/18 06/29/18 18:59 06:59 18:59 Intake Total 500 / 500 110 / 110 1000 / 1000 Output Total 400 / 400 Balance 500 / 500 -290 / -290 1000 / 1000 Weight 77.2 kg Intake: IV 500 / 500 110 / 110 1000 / 1000 NS Inj 1,000 ML @ 50 mls/hr IV. 500 / 500 1000 / 1000 CONT .Q20H VARGAS Rx#:[id number] Rocephin Inj 1,000 MG In NS Inj 110 / 110 100 ML @ 200 mls/hr IV.SIG Q24H VARGAS Rx#:[id number] Output: Urine 400 / 400 Other: # Voids 3 Narrative: No garbled speech today Maintains eye contact Clear lungs bilaterally, unlabored breathing Heart sounds regular rate and rhythm - Urinary Catheter Management Straight Cath placed during this visit: yes, but has since been removed by the nurse Reason for continuing: Decision to DC catheter Insertion date: 06/22/18 Insertion time: 16:00 Removal date: 06/22/18 Removal time: 16:02 Results - Labs CBC & Chem 7: 06/23/18 06:20 06/23/18 06:20 - Procedures CT simulation Assessment and Plan - Assessment (1) Syncope Code(s): R55 - Syncope and collapse Status: Acute (2) Orthostatic hypotension Code(s): I95.1 - Orthostatic hypotension Status: Chronic (3) CAD (coronary artery disease) Code(s): I25.10 - Atherosclerotic heart disease of [place] coronary artery without angina pectoris Status: Acute (4) Odynophagia Code(s): R13.10 - Dysphagia, unspecified Status: Acute (5) Debility Code(s): R53.81 - Other malaise Status: Chronic (6) Squamous cell cancer of tongue Code(s): C02.9 - Malignant neoplasm of tongue, unspecified Status: Chronic (7) Acute UTI Code(s): N39.0 - Urinary tract infection, site not specified Status: Acute (8) Chronic kidney disease (CKD) Code(s): N18.9 - Chronic kidney disease, unspecified Status: Chronic - Plan This patient is a 77-year-old male with a diagnosis of atrial fibrillation on Eliquis, hypertension, prostate and throat cancer. 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 He was admitted for was admitted after having a syncopal episode and was found to be hypotensive on evaluation. Was started on midodrine and IV fluids. Pressures improved, stopped from taking imipramine for possible cause of orthostasis. Then became very hypotensive, started on antihypertensives. Found to have UTI, started on antibiotics (Rocephin). syncope secondary to orthostatic hypotension. Atrial fibrillation -Refrain from restarting home imipramine -Cardizem for rate control -Continue Eliquis. Dysphagia secondary to squamous cell carcinoma of the tongue - mechanical soft diet with thin liquids per ST - f/u w/ oncology outpt 4. Hypertension The patient has very labile blood pressure. cardizem, consider starting lisinopril 5. Urinary tract infection E. coli and Proteus - completing rocephin course 6. Depression Patient was previously on imipramine. Will consider discontinuing this medication out of concern for syncope. He should follow-up with his primary care doctor and he should be reassessed and added on a different agent if needed for depression. Pending SNF placement Discharge Planning: pending SNF placement (1) Syncope Qualifiers: Syncope type: vasovagal syncope Qualified Code(s): R55 - Syncope and collapse (8) Chronic kidney disease (CKD) Qualifiers: Chronic kidney disease stage: stage 3 (moderate) Qualified Code(s): N18.3 - Chronic kidney disease, stage 3 (moderate)
[2018-06-29] MEDS: Montelukast 10 MG Tablet PO SCH (18:30)
[2018-06-30] MEDS: Sod Chloride 0.9% Inj 1,000 ML IV.CONT SCH (06:28)
[2018-06-30] MEDS: amLODIPine 5 MG Tablet PO SCH (10:13)
[2018-06-30] MEDS: dilTIAZem CD 240 MG Capsule PO SCH (10:13)
--- NOTE | 2018-06-30 15:39 | P.PNIM ---
Subjective Interval history: No acute deteriorations overnight. Patient himself has no new medical complaints. Physical Exam Vital signs: Vital Signs 06/29/18 16:00 06/29/18 18:00 06/29/18 19:00 Temperature 98.2 F Pulse Rate 59 L 57 L 58 L Respiratory Rate 16 Blood Pressure 128/75 Pulse Oximetry 97 06/29/18 20:00 06/29/18 23:00 06/30/18 00:00 Temperature 97.9 F 98.3 F Pulse Rate 57 L 65 57 L Respiratory Rate 12 12 Blood Pressure 124/77 146/87 H Pulse Oximetry 97 97 06/30/18 03:00 06/30/18 04:00 06/30/18 07:00 Temperature 97.8 F Pulse Rate 56 L 58 L 65 Respiratory Rate 12 Blood Pressure 151/84 H Pulse Oximetry 96 06/30/18 08:00 06/30/18 12:05 Temperature 97.8 F Pulse Rate 63 66 Respiratory Rate 16 16 Blood Pressure 181/91 H 168/92 H Pulse Oximetry 98 98 Intake & Output 06/29/18 06/30/18 06/30/18 18:59 06:59 18:59 Intake Total 1680 / 1680 1230 / 1230 Output Total 450 / 450 Balance 1680 / 1680 780 / 780 Weight 79.9 kg Intake: IV 1000 / 1000 1110 / 1110 NS Inj 1,000 ML @ 50 mls/hr IV. 1000 / 1000 1000 / 1000 CONT .Q20H VARGAS Rx#:[id number] Rocephin Inj 1,000 MG In NS Inj 110 / 110 100 ML @ 200 mls/hr IV.SIG Q24H VARGAS Rx#:[id number] Oral 680 / 680 120 / 120 Output: Urine 450 / 450 Other: # Incontinent Bowel Movements 1 Narrative: Heart sounds regular rhythm, no murmurs Clear lungs bilaterally, unlabored breathing Lying in bed, awake, alert, maintains eye contact No garbled speech - Urinary Catheter Management Straight Cath placed during this visit: yes, but has since been removed by the nurse Reason for continuing: Decision to DC catheter Insertion date: 06/22/18 Insertion time: 16:00 Removal date: 06/22/18 Removal time: 16:02 Results - Labs CBC & Chem 7: 06/23/18 06:20 06/23/18 06:20 - Procedures CT simulation Assessment and Plan - Assessment (1) Syncope Code(s): R55 - Syncope and collapse Status: Acute (2) Orthostatic hypotension Code(s): I95.1 - Orthostatic hypotension Status: Chronic (3) CAD (coronary artery disease) Code(s): I25.10 - Atherosclerotic heart disease of [place] coronary artery without angina pectoris Status: Acute (4) Odynophagia Code(s): R13.10 - Dysphagia, unspecified Status: Acute (5) Debility Code(s): R53.81 - Other malaise Status: Chronic (6) Squamous cell cancer of tongue Code(s): C02.9 - Malignant neoplasm of tongue, unspecified Status: Chronic (7) Acute UTI Code(s): N39.0 - Urinary tract infection, site not specified Status: Acute (8) Chronic kidney disease (CKD) Code(s): N18.9 - Chronic kidney disease, unspecified Status: Chronic - Plan This patient is a 77-year-old male with a diagnosis of atrial fibrillation on Eliquis, hypertension, prostate and throat cancer. 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 He was admitted for was admitted after having a syncopal episode and was found to be hypotensive on evaluation. Was started on midodrine and IV fluids. Pressures improved, stopped from taking imipramine for possible cause of orthostasis. Then became very hypotensive, started on antihypertensives. Found to have UTI, completed ( Rocephin) course. syncope secondary to orthostatic hypotension. Atrial fibrillation -Refrain from restarting home imipramine -Cardizem for rate control -Continue Eliquis. Dysphagia secondary to squamous cell carcinoma of the tongue - mechanical soft diet with thin liquids per ST - f/u w/ oncology outpt Hypertension cardizem, started lisinopril depression Patient was previously on imipramine. Will consider discontinuing this medication out of concern for syncope. He should follow-up with his primary care doctor and he should be reassessed and added on a different agent if needed for depression. Discharge Planning: pending SNF placement (1) Syncope Qualifiers: Syncope type: vasovagal syncope Qualified Code(s): R55 - Syncope and collapse (8) Chronic kidney disease (CKD) Qualifiers: Chronic kidney disease stage: stage 3 (moderate) Qualified Code(s): N18.3 - Chronic kidney disease, stage 3 (moderate)
[2018-06-30] MEDS: Montelukast 10 MG Tablet PO SCH (18:54)
[2018-06-30] MEDS: Lisinopril 5 MG Tablet PO SCH (18:54)
[2018-07-01] MEDS: Sod Chloride 0.9% Inj 1,000 ML IV.CONT SCH ×3 (00:32→20:26)
[2018-07-01] MEDS: amLODIPine 5 MG Tablet PO SCH (10:55)
[2018-07-01] MEDS: dilTIAZem CD 240 MG Capsule PO SCH (10:55)
[2018-07-01] MEDS: Lisinopril 5 MG Tablet PO SCH (10:55)
[2018-07-01] MEDS: Montelukast 10 MG Tablet PO SCH (17:45)
[2018-07-02] MEDS: Sod Chloride 0.9% Inj 1,000 ML IV.CONT SCH (04:40)
--- NOTE | 2018-07-02 07:24 | P.PNIM ---
Subjective Interval history: no acute deterioration o/n. Pt denies any new complaints. Physical Exam Vital signs: Vital Signs 07/01/18 08:00 07/01/18 11:00 07/01/18 12:40 Temperature 97.2 F L 97.8 F Pulse Rate 70 72 71 Respiratory Rate 16 16 Blood Pressure 160/98 H 161/93 H Pulse Oximetry 98 96 07/01/18 15:00 07/01/18 16:00 07/01/18 20:00 Temperature 98.2 F 98.1 F Pulse Rate 62 60 63 Respiratory Rate 16 20 Blood Pressure 129/90 148/88 H Pulse Oximetry 97 98 07/01/18 20:38 07/01/18 21:54 07/01/18 23:56 Temperature Pulse Rate 61 68 75 Respiratory Rate Blood Pressure 114/80 Pulse Oximetry 07/02/18 00:00 07/02/18 04:02 07/02/18 04:12 Temperature 98 F 97.9 F Pulse Rate 65 65 69 Respiratory Rate 20 18 Blood Pressure 150/88 H 147/92 H Pulse Oximetry 97 99 Intake & Output 07/01/18 07/02/18 07/02/18 18:59 06:59 18:59 Intake Total 740 / 740 1240 / 1240 Output Total 600 / 600 Balance 740 / 740 640 / 640 Weight 80 kg Intake: IV 1000 / 1000 NS Inj 1,000 ML @ 50 mls/hr IV. 1000 / 1000 CONT .Q20H VARGAS Rx#:[id number] Oral 740 / 740 240 / 240 Output: Urine 600 / 600 Other: # Voids 350 # Incontinent Voids 4 Date of Last Bowel Movement 06/30/18 06/30/18 # Bowel Movements 0 - Urinary Catheter Management Straight Cath placed during this visit: yes, but has since been removed by the nurse Reason for continuing: Decision to DC catheter Insertion date: 06/22/18 Insertion time: 16:00 Removal date: 06/22/18 Removal time: 16:02 Results - Labs CBC & Chem 7: 06/23/18 06:20 06/23/18 06:20 - Procedures CT simulation Assessment and Plan - Assessment (1) Syncope Code(s): R55 - Syncope and collapse Status: Acute (2) Orthostatic hypotension Code(s): I95.1 - Orthostatic hypotension Status: Chronic (3) CAD (coronary artery disease) Code(s): I25.10 - Atherosclerotic heart disease of [place] coronary artery without angina pectoris Status: Acute (4) Odynophagia Code(s): R13.10 - Dysphagia, unspecified Status: Acute (5) Debility Code(s): R53.81 - Other malaise Status: Chronic (6) Squamous cell cancer of tongue Code(s): C02.9 - Malignant neoplasm of tongue, unspecified Status: Chronic (7) Acute UTI Code(s): N39.0 - Urinary tract infection, site not specified Status: Acute (8) Chronic kidney disease (CKD) Code(s): N18.9 - Chronic kidney disease, unspecified Status: Chronic - Plan This patient is a 77-year-old male with a diagnosis of atrial fibrillation on Eliquis, hypertension, prostate and throat cancer. 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 He was admitted for was admitted after having a syncopal episode and was found to be hypotensive on evaluation. Was started on midodrine and IV fluids. Pressures improved, stopped from taking imipramine for possible cause of orthostasis. Then became very hypotensive, started on antihypertensives. Tx'd for UTI. BP now stable. Awaiting placement to SNF coordination of XRT treatments. Medically stable for dc. afib -cardizem and eliquis Dysphagia secondary to squamous cell carcinoma of the tongue - mechanical soft diet with thin liquids per ST - f/u w/ oncology outpt Hypertension -cardizem, lisinopril Depression Patient was previously on imipramine. He should follow-up with his primary care doctor and he should be reassessed and added on a different agent if needed for depression. Discharge Planning: pending SNF placement and arrangements for radiation tx (1) Syncope Qualifiers: Syncope type: vasovagal syncope Qualified Code(s): R55 - Syncope and collapse (8) Chronic kidney disease (CKD) Qualifiers: Chronic kidney disease stage: stage 3 (moderate) Qualified Code(s): N18.3 - Chronic kidney disease, stage 3 (moderate)
--- NOTE | 2018-07-02 14:22 | P.DS ---
Date of admission: 06/24/18 20:13 Primary care physician: Hong Castro MD Anticipated date of discharge: 07/02/18 Brief History from admission: This patient is a 77-year-old male with a diagnosis of atrial fibrillation currently not on anticoagulation, hypertension, prostate and throat cancer. 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 He was admitted for atrial for ablation with rapid ventricular rate and was in [place] re[facility]. Prior the patient ended up having a syncopal episode and was found to have orthostatic hypotension. DS: Diagnosis - Discharge Diagnosis (1) Squamous cell cancer of tongue Status: Chronic DS: Medications - Discharge Medications Prescriptions: oxycodone 7.5 mg PO Q6H PRN #15 tab PRN Reason: Pain 5-10 DS: Summary Hospital Course: This patient is a 77-year-old male with a diagnosis of atrial fibrillation on Eliquis, hypertension, prostate cancer and throat cancer. 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 He was admitted after having a syncopal episode and was found to be hypotensive on evaluation. He was started on midodrine and IV fluids. Blood pressures improved. We stopped imipramine as it is a possible cause of orthostasis. Radiation oncology was consulted and the pt will continue XRT treatments upon discharge. He received antibiotics for a UTI. He was placed on a mechanical soft diet per speech therapy. He will follow up with oncology as an outpt. He will also follow up with his PCP. He will be discharged to a fpc facility. Case management assisted with discharge disposition. - Time Spent with Patient Total time spent providing and/or coordinating discharge services: Greater than 30 minutes - Quality: VTE Deep Vein Thrombosis/Pulmonary Embolism Present on Admission: No Exam Vital signs: Vital Signs 07/01/18 15:00 07/01/18 16:00 07/01/18 20:00 Temperature 98.2 F 98.1 F Pulse Rate 62 60 63 Respiratory Rate 16 20 Blood Pressure 129/90 148/88 H Pulse Oximetry 97 98 07/01/18 20:38 07/01/18 21:54 07/01/18 23:56 Temperature Pulse Rate 61 68 75 Respiratory Rate Blood Pressure 114/80 Pulse Oximetry 07/02/18 00:00 07/02/18 04:02 07/02/18 04:12 Temperature 98 F 97.9 F Pulse Rate 65 65 69 Respiratory Rate 20 18 Blood Pressure 150/88 H 147/92 H Pulse Oximetry 97 99 07/02/18 08:00 07/02/18 11:02 07/02/18 12:45 Temperature 97.8 F 98.2 F Pulse Rate 65 64 Respiratory Rate 18 20 18 Blood Pressure 124/91 H 151/96 H Pulse Oximetry 96 98 Intake & Output 07/01/18 07/02/18 07/02/18 18:59 06:59 18:59 Intake Total 740 / 740 1240 / 1240 Output Total 600 / 600 Balance 740 / 740 640 / 640 Weight 80 kg Intake: IV 1000 / 1000 NS Inj 1,000 ML @ 50 mls/hr IV. 1000 / 1000 CONT .Q20H VARGAS Rx#:[id number] Oral 740 / 740 240 / 240 Output: Urine 600 / 600 Other: # Voids 350 # Incontinent Voids 4 Date of Last Bowel Movement 06/30/18 06/30/18 06/30/18 # Bowel Movements 0 Narrative: General patient in no acute distress HEENT extraocular movements are intact, oral thrush with lesion on the left side of the patient's tongue. No bleeding from the lesion. Cardiovascular S1-S2 audible, RRR, no murmurs rubs or gallops Respiratory clear to auscultation bilaterally Abdomen soft, nontender, nondistended, normal bowel sounds Extremities no edema 2+ distal pulses in bilateral upper and lower extremities Neuro left upper extremity weakness 2-3 out of 5 strength of the left upper extremity. Patient can move the rest of his extremities and sensation is intact bilaterally. Results Procedures completed during hospitalization: CT simulation - Impressions ITS Impressions Chest X-Ray 06/22/18 13:46 CONCLUSION: Negative for an acute process Chest CTA 06/22/18 13:47 CONCLUSION: 1. No PE is identified. There is no acute finding to explain the shortness of breath. 2. Dependent atelectasis in the right lung. Otherwise, lungs are clear. 3. Nonacute findings include severe coronary artery calcification and 1.9 cm subcutaneous nodule on the anterior midline chest likely representing a sebaceous cyst. Soft Tissue Neck CT 06/22/18 13:47 CONCLUSION: 1. Large ulcerating mass based on the left side that does cross the midline at base of tongue. Discharge Plan - Discharge Disposition Patient Disposition: [address] [facility] - Discharge Condition Condition: Stable - Discharge Order Discharge Orders: Discharge Order (Routine); Ordered 06/26/18 Ordered By: Dwaine Scanlon - Discharge Details Anticipated Discharge Date: 07/02/18 - Physicians Team Primary Care Provider: Hong Castro Attending Provider: Arvind Garzon Other Providers: Severiano Yoon MD ; [facility],Agency ; [facility]Agency ; [facility],Agency ; [facility] ; [facility], Agency ; [facility],Agency ; [facility],Agency
[2018-07-02] MEDS: dilTIAZem CD 240 MG Capsule PO SCH (15:54)
[2018-07-02] MEDS: Lisinopril 5 MG Tablet PO SCH (15:56)
== END 2018-07-02 16:30 ==
LOC: NEPE 13:03 → NEDA 13:03 → HCIN 18:50
PROVIDERS: ADMIT Hospitalist; ATTEND Hospitalist

== ENCOUNTER 2018-07-03 14:11 | Observation (INO) ==
--- NOTE | 2018-07-03 14:42 | ED ---
HPI General Chief complaint: Syncope Stated complaint: Medical Time Seen by Provider: 07/03/18 14:26 History of Present Illness HPI narrative: 77-year-old male with history of atrial fibrillation on Eliquis, hypertension, prostatic and throat cancer, autonomic instability, orthostatic hypotension, presents from [facility] for [facility]. The patient was just [facility] Today they were transferring him on a Em[facility]iana lift when he appeared to be short of breath and reportedly had a syncopal episode which resolved after he was removed from the [facility] lift. The patient is currently without complaint however he is a very poor historian. He is denying any shortness of breath, cough, chest pain, nausea, vomiting, headache, dizziness, lightheadedness, abdominal pain. Related Data Home Medications Medication Instructions Recorded Confirmed midodrine 2.5 mg PO TID 06/16/18 07/03/18 butalbital-acetaminophen 2 tab PO BID PRN 06/22/18 07/03/18 metoclopramide HCl [Reglan] 10 mg PO QID 06/22/18 07/03/18 montelukast 10 mg PO QPM 06/22/18 07/03/18 potassium chloride 10 meq PO BID 06/22/18 07/03/18 Previous Rx's Medication Instructions Recorded apixaban [Eliquis] 5 mg PO BID tab 06/26/18 aspirin 81 mg PO DAILY tab 06/26/18 diltiazem HCl 240 mg PO DAILY cap 06/26/18 oxycodone 7.5 mg PO Q6H PRN #15 tab 07/02/18 Allergies Allergy/AdvReac Type Severity Reaction Status Date / Time colchicine Allergy Severe Headache Verified 06/22/18 13:28 labetalol Allergy Intermediate Hives Verified 06/22/18 13:28 hydrochlorothiazide AdvReac Intermediate Diarrhea Verified 06/22/18 13:28 Review of Systems ROS: all other systems reviewed are negative [facility] Social History Social History Substance History: No History of Abuse Second Hand Smoke Exposure: No Smoking Status: Never smoker How Often Do You Have a Drink Containing Alcohol: Never Recent Travel in [facility] within the Last 8 Weeks: No Recent Out of Country Travel within the Last 8 Weeks: No Immunization History Tetanus Immunization: <5 Years Course Initial Documented Vital Signs Temperature 98.5 F 07/03/18 14:28 Pulse Rate 60 07/03/18 14:28 Respiratory Rate 16 07/03/18 14:28 Blood Pressure 160/85 H 07/03/18 14:28 Pulse Oximetry 97 07/03/18 14:28 Last Documented Vital Signs Temperature 98.5 F 07/03/18 14:28 Pulse Rate 58 L 07/03/18 16:00 Respiratory Rate 16 07/03/18 14:28 Blood Pressure 157/85 H 07/03/18 16:00 Pulse Oximetry 99 07/03/18 16:00 Medical Decision Making ROMERO Attestation ROMERO supervised visit: Yes Attestation: I, Dr. Jules, have reviewed the advance practice practitioner's documentation and am in agreement, met with the patient face to face, made the diagnosis, and the medical decision making was done by me. *My assessment and Findings: Patient is a 77-year-old male, past medical history significant for coronary artery disease, orthostatic hypotension with autonomic instability and recurrent syncope who presents after having shortness of breath and an episode of syncope at his nursing facility. No acute ischemic changes on EKG QTC is only 400. Review of the medical record reveals that he was diagnosed with urinary tract infection but has not received any antibiotics. He has been given Rocephin here and re-admitted for further evaluation and management. MDM Narrative Medical decision making narrative: The patient was placed on ECG monitoring pulse oximetry. Twelve-lead EKG obtained. Lab work, chest x-ray, CT brain ordered. Lab work has been reviewed. Potassium is low at 2.9, oral potassium chloride and 10 mg once IV potassium chloride administered. Patient has a UTI, not currently on antibiotics, IV Rocephin initiated. The patient will be admitted to the hospitalist service. Medical Screen Exam Complete: Yes Emergency Medical Condition: Yes Differential Diagnosis Differential Diagnosis: Orthostatic hypotension, UTI, delirium, seizure, arrhythmia Lab Data Result diagrams: 07/03/18 14:45 07/03/18 14:45 Lab Results 07/03/18 07/03/18 07/03/18 Range/Units 14:45 14:45 14:45 WBC 10.1 (4.0-11.0) th/mm3 RBC 3.69 L (4.50-5.90) mil/mm3 Hgb 12.1 L (13.0-17.0) gm/dL Hct 35.4 L (39.0-51.0) % MCV 95.7 (80.0-100.0) fL MCH 32.8 (27.0-34.0) pg MCHC 34.3 (32.0-36.0) % RDW 16.6 (11.6-17.2) % Plt Count 257 (150-450) th/mm3 MPV 6.9 L (7.0-11.0) fL Neut % (Auto) 73.2 H (16.0-70.0) % Lymph % (Auto) 19.3 (9.0-44.0) % [place] % (Auto) 7.2 (0.0-8.0) % Eos % (Auto) 0.0 (0.0-4.0) % Baso % (Auto) 0.3 (0.0-2.0) % Neut # (Auto) 7.4 (1.8-7.7) th/mm3 Lymph # (Auto) 2.0 (1.0-4.8) th/mm3 [place] # (Auto) 0.7 (0.0-0.9) th/mm3 Eos # (Auto) 0.0 (0.0-0.4) th/mm3 Baso # (Auto) 0.0 (0.0-0.2) th/mm3 WBC Differential . Differential Comment Auto diff final PT 11.3 (9.8-11.6) sec INR 1.1 Ratio APTT 30.3 (23.4-31.7) sec Sodium 138 (136-145) meq/L Potassium 2.9 L* (3.5-5.1) meq/L Chloride 99 (98-107) meq/L Carbon Dioxide 31.1 (21.0-32.0) meq/L Anion Gap 8 (5-15) meq/L BUN 15 (7-18) mg/dL Creatinine 0.91 (0.60-1.30) mg/dL Estimated GFR 81 L (>89) mL/min Random Glucose 108 H (74-106) mg/dL Calcium 8.9 (8.5-10.1) mg/dL Magnesium 1.8 (1.5-2.5) mg/dL Total Bilirubin 0.6 (0.2-1.0) mg/dL AST 15 (15-37) U/L ALT 19 (12-78) U/L Alkaline Phosphatase 125 H (45-117) U/L Troponin I Less than 0.02 L (0.02-0.05) ng/mL Total Protein 6.4 (6.4-8.2) g/dL Albumin 2.7 L (3.4-5.0) g/dL Urine Color (Yellw/Straw) Urine Clarity (Clear) Urine pH (5.0-8.5) Ur Specific Canon (1.002-1.035) Urine Protein (Neg-Trace) mg/dL Urine Glucose (UA) (Negative) mg/dL Urine Ketones (Negative) mg/dL Urine Occult Blood (Negative) Urine Nitrate (Negative) Urine Bilirubin (Negative) Urine Urobilinogen (Less than 2) mg/dL Ur Leukocyte Esterase (Negative) Urine RBC (0-3) /hpf Urine WBC (0-5) /hpf Urine WBC Clumps (None) Amorphous Sediment (None) /hpf Urine Bacteria (None) /hpf Hyaline Casts (0-3) /lpf Urine Mucus (Occasional) /lpf Micro UA Comment Ur Microscopic Review Urine Culture Comments 07/03/18 Range/Units 15:30 WBC (4.0-11.0) th/mm3 RBC (4.50-5.90) mil/mm3 Hgb (13.0-17.0) gm/dL Hct (39.0-51.0) % MCV (80.0-100.0) fL MCH (27.0-34.0) pg MCHC (32.0-36.0) % RDW (11.6-17.2) % Plt Count (150-450) th/mm3 MPV (7.0-11.0) fL Neut % (Auto) (16.0-70.0) % Lymph % (Auto) (9.0-44.0) % [place] % (Auto) (0.0-8.0) % Eos % (Auto) (0.0-4.0) % Baso % (Auto) (0.0-2.0) % Neut # (Auto) (1.8-7.7) th/mm3 Lymph # (Auto) (1.0-4.8) th/mm3 [place] # (Auto) (0.0-0.9) th/mm3 Eos # (Auto) (0.0-0.4) th/mm3 Baso # (Auto) (0.0-0.2) th/mm3 WBC Differential Differential Comment PT (9.8-11.6) sec INR Ratio APTT (23.4-31.7) sec Sodium (136-145) meq/L Potassium (3.5-5.1) meq/L Chloride (98-107) meq/L Carbon Dioxide (21.0-32.0) meq/L Anion Gap (5-15) meq/L BUN (7-18) mg/dL Creatinine (0.60-1.30) mg/dL Estimated GFR (>89) mL/min Random Glucose (74-106) mg/dL Calcium (8.5-10.1) mg/dL Magnesium (1.5-2.5) mg/dL Total Bilirubin (0.2-1.0) mg/dL AST (15-37) U/L ALT (12-78) U/L Alkaline Phosphatase (45-117) U/L Troponin I (0.02-0.05) ng/mL Total Protein (6.4-8.2) g/dL Albumin (3.4-5.0) g/dL Urine Color Yellow (Yellw/Straw) Urine Clarity Hazy H (Clear) Urine pH 6.0 (5.0-8.5) Ur Specific Canon 1.016 (1.002-1.035) Urine Protein 30 H (Neg-Trace) mg/dL Urine Glucose (UA) Negative (Negative) mg/dL Urine Ketones Trace H (Negative) mg/dL Urine Occult Blood Small H (Negative) Urine Nitrate Negative (Negative) Urine Bilirubin Negative (Negative) Urine Urobilinogen 2.0 H (Less than 2) mg/dL Ur Leukocyte Esterase Moderate H (Negative) Urine RBC 7 H (0-3) /hpf Urine WBC 42 H (0-5) /hpf Urine WBC Clumps Few H (None) Amorphous Sediment Rare H (None) /hpf Urine Bacteria Few H (None) /hpf Hyaline Casts 8 (0-3) /lpf Urine Mucus Few H (Occasional) /lpf Micro UA Comment Cath-culture ind Ur Microscopic Review Not Reportable Urine Culture Comments Cath-cult indicated Imaging Data Radiologist's impression: Chest X-Ray 07/03/18 14:38 CONCLUSION: Negative examination. Head CT 07/03/18 14:38 CONCLUSION: No acute intracranial findings. . Discharge Plan Discharge Disposition Patient Disposition: 30 Still Patient Discharge Condition Condition: Stable Discharge Details Diagnosis: Acute UTI, Acute hypokalemia, Recurrent syncope Physicians Team ED Provider: Mere Jules ED Midlevel Provider: Celso Wilhelm Primary Care Provider: UNKNOWN, Attending Provider: Lawrence Lawson Status ED Status: Admitted Observation Patient
--- NOTE | 2018-07-03 15:03 | XR ---
EXAM DATE: 07/03/2018 2:55 PM EST AGE/SEX: 77 years / Male INDICATIONS: Shortness of breath. CLINICAL DATA: This is the patient's initial encounter. Patient reports that signs and symptoms have been present for 1 day and indicates a pain score of 5/10. MEDICAL/SURGICAL HISTORY: . Congestive heart failure. Carcinoma, tongue. AFIB. Throat carcinoma . None. COMPARISON: [facility] [place] 1V SINGLE AP, 06/22/2018. . FINDINGS: The heart is normal in size. The mediastinal contours within normal limits. The lungs are clear. The exam is stable compared to previous dated 06/22/2018. The visualized bony structures are grossly intact. CONCLUSION: Negative examination. Electronically signed by: Sunny Lake MD 07/03/2018 3:02 PM EST
[2018-07-03 15:11] LABS: Baso % (Auto) 0.3 % (0.0-2.0); Hematocrit 35.4 % (39.0-51.0); Hemoglobin 12.1 gm/dL (13.0-17.0); Lymph % (Auto) 19.3 % (9.0-44.0); Mean Corpuscular HGB Conc 34.3 % (32.0-36.0); Mean Corpuscular Hemoglobin 32.8 pg (27.0-34.0); Mean Corpuscular Volume 95.7 fL (80.0-100.0); Mean Platelet Volume 6.9 fL (7.0-11.0); Mono # (Auto) 0.7 th/mm3 (0.0-0.9); Mono % (Auto) 7.2 % (0.0-8.0); Neut # (Auto) 7.4 th/mm3 (1.8-7.7); Neut % (Auto) 73.2 % (16.0-70.0); Platelet Count 257 th/mm3 (150-450); Red Blood Count 3.69 mil/mm3 (4.50-5.90); Red Cell Distribution Width 16.6 % (11.6-17.2); White Blood Count 10.1 th/mm3 (4.0-11.0)
[2018-07-03 15:29] LABS: Activated Partial Thrombo Time 30.3 sec (23.4-31.7); INR 1.1 Ratio; Prothrombin Time 11.3 sec (9.8-11.6)
[2018-07-03 15:37] LABS: Alanine Aminotransferase 19 U/L (12-78); Albumin 2.7 g/dL (3.4-5.0); Anion Gap 8 meq/L (5-15); Aspartate Aminotransferase 15 U/L (15-37); Blood Urea Nitrogen 15 mg/dL (7-18); Calcium 8.9 mg/dL (8.5-10.1); Carbon Dioxide 31.1 meq/L (21.0-32.0); Chloride 99 meq/L (98-107); Glomerular Filtration Rate 81 mL/min (>89); Glucose,Random 108 mg/dL (74-106); Magnesium 1.8 mg/dL (1.5-2.5); Sodium 138 meq/L (136-145)
[2018-07-03 15:39] LABS: Potassium 2.9 meq/L (3.5-5.1)
[2018-07-03] MEDS ORDERED: Potassium Chlor 10 mEq Premix 10 MEQ/100 ML PIGGYBACK IV.SIG ONE (15:41)
[2018-07-03 15:42] LABS: Alkaline Phosphatase 125 U/L (45-117); Total Protein 6.4 g/dL (6.4-8.2)
[2018-07-03 16:06] LABS: Amorphous Sediment,Urine Rare /hpf; Bacteria,Urine Few /hpf; Bilirubin,Urine Negative (Negative); Clarity,Urine Hazy (Clear); Color,Urine Yellow (Yellw/Straw); Glucose,Urine (UA) Negative (Negative); Hyaline Casts,Urine 8 /lpf (0-3); Leukocyte Esterase,Urine Moderate (Negative); Mucus,Urine Few /lpf (Occasional); Nitrite,Urine Negative (Negative); Specific Gravity,Urine 1.016 (1.002-1.035)
--- NOTE | 2018-07-03 16:30 | CT ---
EXAM DATE: 07/03/2018 4:19 PM EST AGE/SEX: 77 years / Male INDICATIONS: Fell and hit back of head. CLINICAL DATA: This is the patient's initial encounter. Patient reports that signs and symptoms have been present for 1 day and indicates a pain score of 5/10. MEDICAL/SURGICAL HISTORY: . Atrial fibrillation. Congestive heart failure. Kidney cancer. Prostate cancer. Hypertension. Throat cancer. . Nephrectomy. Cardiac catheter. Colonoscopy. Prostatectomy. RADIATION DOSE: 56.35 CTDI (mGy) COMPARISON: [facility] – [place], [place] HEAD W/O CONTRAST, 06/16/2018. . TECHNIQUE: CT of the head without contrast. Using automated exposure control and adjustment of the mA and/or kV according to patient size, radiation dose was kept as low as reasonably achievable to ob tain optimal diagnostic quality images. DICOM format image data is available electronically for revi ew and comparison. FINDINGS: Cerebrum: Stable mild prominence of the ventricles, commensurate with age and extent of mild parench ymal volume loss. No evidence of midline shift, mass lesion, acute intracranial hemorrhage, or acute large vessel cortically-based infarction. Stable patchy and confluent regions of hypodensity in the periventricular and subcortical white matter, which are nonspecific but likely related to small vesse l ischemic disease. No extraaxial fluid collections are seen. Atherosclerotic intracranial arterial c alcifications. Posterior Fossa: The cerebellum and brainstem are intact. The 4th ventricle is midline. The cerebe llopontine angle is unremarkable. Extracranial: Bilateral cataract surgery. Stable calcification along the posterior aspect of each gl obe. Skull: The calvaria is intact. No evidence of skull fracture. CONCLUSION: No acute intracranial findings. . Electronically signed by: Rosaura Briones MD 07/03/2018 4:29 PM EST
[2018-07-03] MEDS ORDERED: Bisacodyl 10 MG Supp RECTAL PRN (17:38)
--- NOTE | 2018-07-03 17:57 | P.HPIM ---
History of Present Illness Primary Care Physician: UNKNOWN Chief Complaint: syncope History of Present Illness: Patient is a 77 year old male with a past medical history significant for atrial fibrillation on a/c with Eliquis, orthostatic hypotension/hypertension, squamous cell carcinoma of the tongue, prostate and throat cancer. Patient was recently admitted on 06/22/18 for syncope and orthostatic hypotension and discharged to a SNF on 07/02/18. He was evaluated by Cardiology during previous admissions and was noted to have labile hypertension with autonomic instability and orthostatic hypotension. He is currently being treated with Midodrine. Patient presents after experiencing a syncopal episode and shortness of breath during transfer with a [facility] at [facility]. Patient was transferred to ED for further evaluation and treatment. He is a poor historian at time of evaluation. He is able to mumble that he is cold and to cover him up. He does follow verbal commands, however, does not answer when asked additional questions. No family is present. He is hemodynamically stable. CT angio chest was completed during his recent admission 06/22/18 and showed no evidence of PE. Urinalysis was completed and results are pending. Patient was diagnosed with E-coli urinary tract infection during his recent admission and this is noted to be sensitive to Rocephin. Patient received 1st dose in ED. His serum potassium is noted be low and 2.9. This was repleted in ED with 40 meq PO and 10 meq IV. Chest x-ray shows no acute process. EKG with nonspecific ST and T wave changes. Head CT with no acute intracranial findings. Patient is being admitted under the care of the hospitalist service. Diagnosis (1) Paroxysmal atrial fibrillation: (2) Syncope due to autonomic failure: (3) Urinary tract infection: (4) Hypokalemia: (5) Dehydration: (6) Squamous cell cancer of tongue: (7) CKD (chronic kidney disease): (8) Physical debility: [facility] Social History Social History Substance History: No History of Abuse Second Hand Smoke Exposure: No Smoking Status: Never smoker How Often Do You Have a Drink Containing Alcohol: Never Recent Travel in [place] within the Last 8 Weeks: No Recent Out of Country Travel within the Last 8 Weeks: No Immunization History Tetanus Immunization: <5 Years Medications and Allergies Allergies Allergy/AdvReac Type Severity Reaction Status Date / Time colchicine Allergy Severe Headache Verified 06/22/18 13:28 labetalol Allergy Intermediate Hives Verified 06/22/18 13:28 hydrochlorothiazide AdvReac Intermediate Diarrhea Verified 06/22/18 13:28 Home Medications Medication Instructions Recorded Confirmed Type midodrine 2.5 mg PO TID 06/16/18 07/03/18 History butalbital-acetaminophen 2 tab PO BID PRN 06/22/18 07/03/18 History metoclopramide HCl [Reglan] 10 mg PO QID 06/22/18 07/03/18 History montelukast 10 mg PO QPM 06/22/18 07/03/18 History potassium chloride 10 meq PO BID 06/22/18 07/03/18 History Active Medications: Active Medications Acetaminophen (Tylenol) 650 mg PO Q4H PRN PRN Reason: Temp > 100.4 Al Hydroxide/Mg Hydroxide (Milk Of Magnesia Liq) 30 ml PO Q12H PRN PRN Reason: Mild Constipation Apixaban (Eliquis) 5 mg PO BID [facility] Aspirin (Aspirin Chew) 81 mg PO DAILY VARGAS Bisacodyl (Dulcolax Supp) 10 mg RECTAL DAILY PRN PRN Reason: SEVERE CONSITIPATION Diltiazem HCl (Cardizem Cd 24hr) 240 mg PO DAILY [facility] Sodium Chloride (Ns Inj) 1,000 mls @ 100 mls/hr IV.CONT .Q10H VARGAS Ceftriaxone Sodium 1,000 mg/ (Sodium Chloride) 100 mls @ 200 mls/hr IV.SIG Q24H VARGAS Lactulose (Lactulose Liq) 30 ml PO DAILY PRN PRN Reason: SEVERE CONSITIPATION Midodrine (Proamatine) 2.5 mg PO TID VARGAS Montelukast Sodium (Singulair) 10 mg PO QPM VARGAS Ondansetron HCl (Zofran Inj) 4 mg IV.PUSH Q6H PRN PRN Reason: NAUSEA OR VOMITING Senna/Docusate Sodium (Guillermina-Colace) 1 tab PO BID [facility] Sennosides (Senokot) 17.2 mg PO Q12H PRN PRN Reason: Moderate Constipation Physical Exam Vital signs: Last Vital Signs Temp 98.5 F 07/03/18 14:28 Pulse 58 L 11/13/18 16:00 Resp 16 07/03/18 14:28 BP 157/85 H 07/03/18 16:00 Pulse Ox 99 07/03/18 16:00 Intake & Output 07/01/18 07/02/18 07/03/18 07/04/18 06:59 06:59 06:59 06:59 Intake Total 200 / 200 Balance 200 / 200 Weight 86.183 kg Constitutional no acute distress Routine HEENT Exam Head: Present normocephalic and atraumatic Eye: Present EOMI, PERRL and normal accommodation ENT: Present mucous membranes dry Routine Neck Exam Present supple; Absent JVD Routine Respiratory Exam Present CTA bilaterally; Absent accessory muscle use, respiratory distress and wheezes Routine Cardiovascular Exam Present RRR, S1 and S2 Routine Abdominal Exam Present soft; Absent tenderness and distended Routine Extremities Exam Present full ROM; Absent cyanosis and edema Routine Skin Exam Present intact Routine Neurological Exam Present alert and hearing grossly intact Assessment and Plan (1) Syncope due to autonomic failure: Code(s): R55 - Syncope and collapse Status: Acute -- patient will be admitted to the medical telemetry floor -- tele monitoring -- cycle serial cardiac enzymes -- gentle hydration with IV fluids -- out of bed with assist only -- continue Midodrine (2) Urinary tract infection: Code(s): N39.0 - Urinary tract infection, site not specified Status: Acute -- urine culture pending, previous UA consistent with E-coli UTI sensitive to Rocephin -- continue Rocephin IV 1 gm Q24 hrs -- gentle hydration with IV fluids -- follow pending urine culture (3) Paroxysmal atrial fibrillation: Code(s): I48.0 - Paroxysmal atrial fibrillation Status: Chronic -- chronic and currently in sinus rhythm -- continue home Diltiazem and Eliquis -- tele monitoring (4) Hypokalemia: Code(s): E87.6 - Hypokalemia Status: Acute -- K 2.9 in ED, repleted with 40 meq PO supplementation and 10 meq IV -- repeat BMP in am -- tele monitoring (5) Dehydration: Code(s): E86.0 - Dehydration Status: Acute -- probable dehydration -- gentle hydration with IV fluids (6) Squamous cell cancer of tongue: Code(s): C02.9 - Malignant neoplasm of tongue, unspecified Status: Acute -- patient to follow up with Oncology outpatient for treatment (7) CKD (chronic kidney disease): Code(s): N18.9 - Chronic kidney disease, unspecified Status: Acute -- baseline Cr 1.3-1.4 and today 0.91 -- continue gentle hydration -- monitor renal function closely (8) Physical debility: Code(s): R53.81 - Other malaise Status: Chronic -- PT eval and treat Plan Code Status: Full DVT ppx: Eliquis Discharge Planning: SNF, CM consulted for assistance H&P: Quality VTE Deep Vein Thrombosis/Pulmonary Embolism Present on Admission: No _ (1) CKD (chronic kidney disease) Qualifiers: Chronic kidney disease stage: stage 3 (moderate) Qualified Code(s): N18.3 - Chronic kidney disease, stage 3 (moderate)
[2018-07-03] MEDS: Sod Chloride 0.9% Inj 1,000 ML IV.CONT SCH (20:26)
[2018-07-03] MEDS: Montelukast 10 MG Tablet PO SCH (20:26)
[2018-07-03] MEDS: Senna/Docusate Sodium 8.6/50 MG Tablet PO SCH (21:25)
[2018-07-04] MEDS: Sod Chloride 0.9% Inj 1,000 ML IV.CONT SCH (05:48)
[2018-07-04 06:28] LABS: Baso % (Auto) 0.2 % (0.0-2.0); Lymph # (Auto) 2.2 th/mm3 (1.0-4.8); Mean Corpuscular HGB Conc 34.3 % (32.0-36.0); Mean Corpuscular Hemoglobin 32.9 pg (27.0-34.0); Mean Platelet Volume 6.5 fL (7.0-11.0); Mono # (Auto) 0.7 th/mm3 (0.0-0.9); Mono % (Auto) 7.9 % (0.0-8.0); Neut # (Auto) 5.6 th/mm3 (1.8-7.7); Neut % (Auto) 65.9 % (16.0-70.0); Platelet Count 220 th/mm3 (150-450); Red Blood Count 3.33 mil/mm3 (4.50-5.90); Red Cell Distribution Width 16.3 % (11.6-17.2); White Blood Count 8.5 th/mm3 (4.0-11.0)
[2018-07-04 07:10] LABS: Anion Gap 10 meq/L (5-15); Blood Urea Nitrogen 9 mg/dL (7-18); Calcium 8.3 mg/dL (8.5-10.1); Carbon Dioxide 28.1 meq/L (21.0-32.0); Chloride 103 meq/L (98-107); Glomerular Filtration Rate Greater Than 89 mL/min (>89); Glucose,Random 104 mg/dL (74-106); Sodium 141 meq/L (136-145)
[2018-07-04 07:52] LABS: Potassium 2.9 meq/L (3.5-5.1)
[2018-07-04] MEDS: Senna/Docusate Sodium 8.6/50 MG Tablet PO SCH ×2 (10:09→21:44)
[2018-07-04] MEDS: dilTIAZem CD 240 MG Capsule PO SCH (10:09)
--- NOTE | 2018-07-04 11:36 | P.PNIM ---
Subjective Interval history: The patient was resting in bed comfortably. He had no acute complaints at the current time. His family was at the bedside and was very concerned about his recent experience at the intermediate facility. Apparently there were many bugs present and the patient was kept in the bed without any arm rests. The rooms also had 3 patients each. The patient has not been able to eat for the past couple of days and is currently hungry. Discussed with nursing. Physical Exam Vital signs: Vital Signs 07/03/18 14:28 07/03/18 16:00 07/03/18 19:02 Temperature 98.5 F Pulse Rate 60 58 L 63 Respiratory Rate 16 14 Blood Pressure 160/85 H 157/85 H 154/85 H Pulse Oximetry 97 99 99 07/03/18 21:15 07/03/18 21:31 07/04/18 00:00 Temperature 98.4 F 98.3 F Pulse Rate 60 60 64 Respiratory Rate 16 18 Blood Pressure 177/95 H 161/90 H Pulse Oximetry 98 97 07/04/18 00:08 07/04/18 03:30 07/04/18 04:08 Temperature 97.9 F Pulse Rate 63 64 67 Respiratory Rate 19 Blood Pressure 148/91 H Pulse Oximetry 96 07/04/18 08:00 Temperature 98.1 F Pulse Rate 68 Respiratory Rate 18 Blood Pressure 153/82 H Pulse Oximetry 100 Intake & Output 07/03/18 07/04/18 07/04/18 18:59 06:59 18:59 Intake Total 200 / 200 1150 / 1150 Output Total 1500 / 1500 Balance 200 / 200 -350 / -350 Weight 86.183 kg 80.5 kg Intake: IV 200 / 200 1000 / 1000 NS Inj 1,000 ML @ 100 mls/hr IV 1000 / 1000 .CONT .Q10H VARGAS Rx#:[id number] KCl 10 mEq Premix Inj 10 meq In 100 / 100 100 ml @ 100 mls/hr IV.SIG ONCE ONE Rx#:[id number] Rocephin Inj 1,000 MG In NS Inj 100 / 100 100 ML @ 200 mls/hr IV.SIG ONCE ONE Rx#:[id number] Oral 150 / 150 Output: Urine 1500 / 1500 Other: # Incontinent Voids 1 # Urine Diapers 1 Date of Last Bowel Movement 07/03/18 # Bowel Movements 1 # Incontinent Bowel Movements 1 Weight On Admission 81 kg Narrative: General: patient in no acute distress HEENT: extraocular movements are intact, lesion on the left side of the patient' s tongue. Cardiovascular: S1-S2 audible, RRR, no murmurs rubs or gallops. Respiratory: clear to auscultation bilaterally. Abdomen: soft, nontender, nondistended, normal bowel sounds. Extremities: no edema, 2+ distal pulses in bilateral upper and lower extremities. Neuro: 2-3 out of 5 strength of the left upper extremity. Patient can move the rest of his extremities and sensation is intact bilaterally. Results - Labs CBC & Chem 7: 07/04/18 06:00 07/04/18 06:00 Laboratory Results - last 24 hr 07/03/18 07/03/18 07/03/18 14:45 14:45 14:45 WBC 10.1 RBC 3.69 L Hgb 12.1 L Hct 35.4 L MCV 95.7 MCH 32.8 MCHC 34.3 RDW 16.6 Plt Count 257 MPV 6.9 L Neut % (Auto) 73.2 H Lymph % (Auto) 19.3 [place] % (Auto) 7.2 Eos % (Auto) 0.0 Baso % (Auto) 0.3 Neut # (Auto) 7.4 Lymph # (Auto) 2.0 [place] # (Auto) 0.7 Eos # (Auto) 0.0 Baso # (Auto) 0.0 WBC Differential . Differential Comment Auto diff final PT 11.3 INR 1.1 APTT 30.3 Sodium 138 Potassium 2.9 L* Chloride 99 Carbon Dioxide 31.1 Anion Gap 8 BUN 15 Creatinine 0.91 Estimated GFR 81 L Random Glucose 108 H Calcium 8.9 Magnesium 1.8 Total Bilirubin 0.6 AST 15 ALT 19 Alkaline Phosphatase 125 H Troponin I Less than 0.02 L Total Protein 6.4 Albumin 2.7 L Urine Color Urine Clarity Urine pH Ur Specific [place] Urine Protein Urine Glucose (UA) Urine Ketones Urine Occult Blood Urine Nitrate Urine Bilirubin Urine Urobilinogen Ur Leukocyte Esterase Urine RBC Urine WBC Urine WBC Clumps Amorphous Sediment Urine Bacteria Hyaline Casts Urine Mucus Micro UA Comment Ur Microscopic Review Urine Culture Comments 07/03/18 07/03/18 07/04/18 15:30 19:00 01:00 WBC RBC Hgb Hct MCV MCH MCHC RDW Plt Count MPV Neut % (Auto) Lymph % (Auto) [place] % (Auto) Eos % (Auto) Baso % (Auto) Neut # (Auto) Lymph # (Auto) [place] # (Auto) Eos # (Auto) Baso # (Auto) WBC Differential Differential Comment PT INR APTT Sodium Potassium Chloride Carbon Dioxide Anion Gap BUN Creatinine Estimated GFR Random Glucose Calcium Magnesium Total Bilirubin AST ALT Alkaline Phosphatase Troponin I Less than 0.02 L Less than 0.02 L Total Protein Albumin Urine Color Yellow Urine Clarity Hazy H Urine pH 6.0 Ur Specific [place] 1.016 Urine Protein 30 H Urine Glucose (UA) Negative Urine Ketones Trace H Urine Occult Blood Small H Urine Nitrate Negative Urine Bilirubin Negative Urine Urobilinogen 2.0 H Ur Leukocyte Esterase Moderate H Urine RBC 7 H Urine WBC 42 H Urine WBC Clumps Few H Amorphous Sediment Rare H Urine Bacteria Few H Hyaline Casts 8 Urine Mucus Few H Micro UA Comment Cath-culture ind Ur Microscopic Review Not Reportable Urine Culture Comments Cath-cult indicated 07/04/18 07/04/18 06:00 06:00 WBC 8.5 RBC 3.33 L Hgb 11.0 L Hct 32.0 L MCV 96.0 MCH 32.9 MCHC 34.3 RDW 16.3 Plt Count 220 MPV 6.5 L Neut % (Auto) 65.9 Lymph % (Auto) 26.0 [place] % (Auto) 7.9 Eos % (Auto) 0.0 Baso % (Auto) 0.2 Neut # (Auto) 5.6 Lymph # (Auto) 2.2 [place] # (Auto) 0.7 Eos # (Auto) 0.0 Baso # (Auto) 0.0 WBC Differential . Differential Comment Auto diff final PT INR APTT Sodium 141 Potassium 2.9 L* Chloride 103 Carbon Dioxide 28.1 Anion Gap 10 BUN 9 Creatinine 0.76 Estimated GFR Greater than 89 Random Glucose 104 Calcium 8.3 L Magnesium Total Bilirubin AST ALT Alkaline Phosphatase Troponin I Total Protein Albumin Urine Color Urine Clarity Urine pH Ur Specific [place] Urine Protein Urine Glucose (UA) Urine Ketones Urine Occult Blood Urine Nitrate Urine Bilirubin Urine Urobilinogen Ur Leukocyte Esterase Urine RBC Urine WBC Urine WBC Clumps Amorphous Sediment Urine Bacteria Hyaline Casts Urine Mucus Micro UA Comment Ur Microscopic Review Urine Culture Comments - Imaging Impressions Chest X-Ray 07/03/18 14:38 CONCLUSION: Negative examination. Head CT 07/03/18 14:38 CONCLUSION: No acute intracranial findings. . Assessment and Plan - Plan Syncope No further episodes. EKG with NSR. Trops negative. -tele monitoring. -gentle hydration with IV fluids. -out of bed with assist only. -continue Midodrine. -PT. Urinary tract infection UA indicative of an infection. -continue Rocephin IV 1 gm Q24 hrs. -follow pending urine culture. Paroxysmal atrial fibrillation Chronic and currently in sinus rhythm. -continue home Diltiazem and Eliquis. -tele monitoring. Hypokalemia Likely s/t decreased PO intake. -IV KCl ordered. -repeat BMP in am. -tele monitoring. 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 -continue radiation as scheduled. -patient to follow up with oncology outpatient for further management. Disposition The pt and family are very upset with their recent experience at the SNF and would like to remain in-house for the radiation treatments. -case management and supervisors following. DVT ppx: Noy
[2018-07-04] MEDS: Potassium Chlor 20 mEq Premix 20 MEQ/100 ML PIGGYBACK IV.SIG SCH ×2 (12:22→17:34)
--- NOTE | 2018-07-04 12:43 | ECG ---
Date Performed: 07/03/2018 Time Performed: 14:27:01 PTAGE: 77 years EKG: Sinus rhythm NONSPECIFIC T-WAVE ABNORMALITY BORDERLINE ECG PREVIOUS TRACING : 06/22/2018 13.25 DOCTOR: Anthony Willams Interpretating Date/Time 07/04/2018 12:41:08
[2018-07-04] MEDS: Acetaminophen 325 MG Tablet PO PRN ×2 (14:21→21:49)
[2018-07-04] MEDS: Metoclopramide 10 MG Tablet PO SCH ×2 (17:35→21:44)
[2018-07-04] MEDS: Montelukast 10 MG Tablet PO SCH (21:44)
[2018-07-05] MEDS: Sod Chloride 0.9% Inj 1,000 ML IV.CONT SCH ×2 (02:57→02:58)
[2018-07-05] MEDS: dilTIAZem CD 240 MG Capsule PO SCH (08:54)
[2018-07-05] MEDS: Metoclopramide 10 MG Tablet PO SCH ×4 (08:54→21:48)
[2018-07-05] MEDS: Senna/Docusate Sodium 8.6/50 MG Tablet PO SCH ×2 (08:55→21:50)
[2018-07-05 09:03] LABS: Baso % (Auto) 0.3 % (0.0-2.0); Hematocrit 33.1 % (39.0-51.0); Hemoglobin 11.6 gm/dL (13.0-17.0); Lymph % (Auto) 22.3 % (9.0-44.0); Mean Corpuscular HGB Conc 35.2 % (32.0-36.0); Mean Corpuscular Hemoglobin 33.2 pg (27.0-34.0); Mean Corpuscular Volume 94.3 fL (80.0-100.0); Mean Platelet Volume 6.9 fL (7.0-11.0); Mono # (Auto) 0.7 th/mm3 (0.0-0.9); Mono % (Auto) 8.2 % (0.0-8.0); Neut # (Auto) 6.1 th/mm3 (1.8-7.7); Neut % (Auto) 69.2 % (16.0-70.0); Platelet Count 223 th/mm3 (150-450); Red Blood Count 3.51 mil/mm3 (4.50-5.90); Red Cell Distribution Width 16.4 % (11.6-17.2); White Blood Count 8.9 th/mm3 (4.0-11.0)
[2018-07-05 09:27] LABS: Anion Gap 11 meq/L (5-15); Blood Urea Nitrogen 9 mg/dL (7-18); Calcium 8.4 mg/dL (8.5-10.1); Chloride 102 meq/L (98-107); Glomerular Filtration Rate Greater Than 89 mL/min (>89); Magnesium 1.6 mg/dL (1.5-2.5); Sodium 141 meq/L (136-145)
[2018-07-05 09:29] LABS: Glucose,Random 101 mg/dL (74-106)
[2018-07-05 09:31] LABS: Phosphorus 2.3 mg/dL (2.5-4.9)
[2018-07-05] MEDS ORDERED: Mag Sulf 1 gm/100 ml Premix 100 ML IV.SIG ONE (11:28)
[2018-07-05] MEDS ORDERED: Potassium Phosphate 500 MG Soluble Tablet PO ONE (11:28)
--- NOTE | 2018-07-05 11:29 | P.PNIM ---
Subjective Interval history: The patient was resting in bed comfortably. He said he had a hard time getting out of bed and sitting in the chair earlier. His daughter was at the bedside. The patient was currently working with physical therapy. He had no current complaints. Physical Exam Vital signs: Vital Signs 07/04/18 12:00 07/04/18 20:00 07/05/18 00:00 Temperature 97.7 F 98.2 F 97.7 F Pulse Rate 70 70 67 Respiratory Rate Blood Pressure 161/99 H 145/93 H 154/99 H Pulse Oximetry 98 97 97 07/05/18 04:00 07/05/18 04:41 07/05/18 07:52 Temperature 97.4 F L Pulse Rate 68 57 L 81 Respiratory Rate 20 Blood Pressure 157/83 H Pulse Oximetry 99 Intake & Output 07/04/18 07/05/18 07/05/18 18:59 06:59 18:59 Intake Total 1200 / 1200 100 / 100 Output Total 300 / 300 Balance 1200 / 1200 -200 / -200 Weight 80.4 kg Intake: IV 1200 / 1200 100 / 100 NS Inj 1,000 ML @ 100 mls/hr IV 1000 / 1000 .CONT .Q10H VARGAS Rx#:[id number] KCl 20 mEq Premix Inj 20 meq In 100 / 100 100 / 100 100 ml @ 50 mls/hr IV.SIG Q2H VARGAS Rx#:[id number] Rocephin Inj 1,000 MG In NS Inj 100 / 100 100 ML @ 200 mls/hr IV.SIG Q24H VARGAS Rx#:[id number] Output: Urine 300 / 300 Other: # Voids 4 Date of Last Bowel Movement 07/04/18 07/05/18 # Bowel Movements 2 Narrative: General: patient in no acute distress HEENT: extraocular movements are intact, lesion on the left side of the patient' s tongue. Cardiovascular: S1-S2 audible, RRR, no murmurs rubs or gallops. Respiratory: clear to auscultation bilaterally. Abdomen: soft, nontender, nondistended, normal bowel sounds. Extremities: no edema, 2+ distal pulses in bilateral upper and lower extremities. Neuro: 2-3 out of 5 strength of the left upper extremity. Patient can move the rest of his extremities and sensation is intact bilaterally. Results - Labs CBC & Chem 7: 07/05/18 07:34 07/05/18 07:34 Laboratory Results - last 24 hr 07/05/18 07/05/18 07:34 07:34 WBC 8.9 RBC 3.51 L Hgb 11.6 L Hct 33.1 L MCV 94.3 MCH 33.2 MCHC 35.2 RDW 16.4 Plt Count 223 MPV 6.9 L Neut % (Auto) 69.2 Lymph % (Auto) 22.3 [place] % (Auto) 8.2 H Eos % (Auto) 0.0 Baso % (Auto) 0.3 Neut # (Auto) 6.1 Lymph # (Auto) 2.0 [place] # (Auto) 0.7 Eos # (Auto) 0.0 Baso # (Auto) 0.0 WBC Differential . Differential Comment Auto diff final Sodium 141 Potassium 3.0 L Chloride 102 Carbon Dioxide 28.0 Anion Gap 11 BUN 9 Creatinine 0.70 Estimated GFR Greater than 89 Random Glucose 101 Calcium 8.4 L Phosphorus 2.3 L Magnesium 1.6 Microbiology 07/03/18 15:30 Catheterized Urine Urine Culture - Final No growth in 48 hours Assessment and Plan - Plan Syncope No further episodes. EKG with NSR. Trops negative. S/p IVFs. -tele monitoring. -out of bed with assist. -continue Midodrine. -PT. Urinary tract infection UA indicative of an infection. Urine culture with no growth. -d/c antibiotics. Paroxysmal atrial fibrillation Chronic and currently in sinus rhythm. -continue home Diltiazem and Eliquis. -tele monitoring. Hypokalemia Likely s/t decreased PO intake. -IV KCl ordered 07/05. -repeat BMP in am. -tele monitoring. -ADAT. 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 -continue radiation as scheduled. -patient to follow up with oncology outpatient for further management. Disposition The pt and family are very upset with their recent experience at the SNF and would like to remain in-house for the radiation treatments. -case management and supervisors following. DVT ppx: Noy
[2018-07-05] MEDS: Potassium Chlor 20 mEq Premix 20 MEQ/100 ML PIGGYBACK IV.SIG SCH ×2 (15:46→21:49)
[2018-07-05] MEDS: Montelukast 10 MG Tablet PO SCH (21:48)
[2018-07-05] MEDS: Acetaminophen 325 MG Tablet PO PRN (21:49)
[2018-07-06] MEDS: Sod Chloride 0.9% Inj 1,000 ML IV.CONT SCH (05:07)
[2018-07-06] MEDS: Senna/Docusate Sodium 8.6/50 MG Tablet PO SCH ×2 (08:52→20:41)
[2018-07-06] MEDS: dilTIAZem CD 240 MG Capsule PO SCH (08:52)
[2018-07-06] MEDS: Metoclopramide 10 MG Tablet PO SCH ×4 (08:53→20:40)
[2018-07-06] MEDS: Acetaminophen 325 MG Tablet PO PRN (12:36)
--- NOTE | 2018-07-06 14:21 | P.PNIM ---
Subjective Interval history: The patient was about to go for radiation treatment. He said that he had some shortness of breath. He said that he was not swallowing that well. He had no other acute complaints. Physical Exam Vital signs: Vital Signs 07/05/18 16:00 07/05/18 16:20 07/05/18 20:00 Temperature 98.0 F 97.6 F Pulse Rate 62 59 L 66 Respiratory Rate 16 16 Blood Pressure 138/90 149/94 H Pulse Oximetry 97 98 07/05/18 21:05 07/06/18 00:00 07/06/18 00:03 Temperature 98.0 F Pulse Rate 63 72 68 Respiratory Rate 16 Blood Pressure 139/88 Pulse Oximetry 97 07/06/18 04:00 07/06/18 07:47 07/06/18 08:30 Temperature 97.8 F 98.0 F Pulse Rate 71 68 72 Respiratory Rate 16 16 Blood Pressure 155/106 H 150/96 H Pulse Oximetry 99 95 07/06/18 12:30 Temperature 98.5 F Pulse Rate 75 Respiratory Rate 16 Blood Pressure 158/97 H Pulse Oximetry 98 Intake & Output 07/05/18 07/06/18 07/06/18 18:59 06:59 18:59 Intake Total 100 / 100 560 / 560 Balance 100 / 100 560 / 560 Weight 80.9 kg Intake: IV 100 / 100 200 / 200 Magnesium Sulfate 1 gm/D5W 100 100 / 100 ml Premix 100 ML @ 100 mls/hr IV.SIG ONCE ONE Rx#:[id number] KCl 20 mEq Premix Inj 20 meq In 100 / 100 100 ml @ 50 mls/hr IV.SIG Q2H VARGAS Rx#:[id number] Oral 360 / 360 Other: # Voids 5 Date of Last Bowel Movement 07/04/18 07/05/18 07/05/18 Narrative: General: patient in no acute distress HEENT: extraocular movements are intact, lesion on the left side of the patient' s tongue. Cardiovascular: S1-S2 audible, RRR, no murmurs rubs or gallops. Respiratory: clear to auscultation bilaterally. Abdomen: soft, nontender, nondistended, normal bowel sounds. Extremities: no edema, 2+ distal pulses in bilateral upper and lower extremities. Neuro: 2-3 out of 5 strength of the left upper extremity. Patient can move the rest of his extremities and sensation is intact bilaterally. Results - Labs CBC & Chem 7: 07/05/18 07:34 07/05/18 07:34 Assessment and Plan - Plan Syncope No further episodes. EKG with NSR. Trops negative. S/p IVFs. -tele monitoring. -out of bed with assist. -continue Midodrine. -PT. Urinary tract infection UA indicative of an infection. Urine culture with no growth. -d/c antibiotics. Paroxysmal atrial fibrillation Chronic and currently in sinus rhythm. -continue home Diltiazem and Eliquis. -tele monitoring. Hypokalemia Likely s/t decreased PO intake. -IV KCl ordered 07/05. -repeat BMP pending. -tele monitoring. -ADAT. 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 -continue radiation as scheduled. -patient to follow up with oncology outpatient for further management. Anemia Stable. -follow CBC as needed. Disposition The pt and family are very upset with their recent experience at the SNF and would like to remain in-house for the radiation treatments. -case management and supervisors following. DVT ppx: Elitim
[2018-07-06] MEDS ORDERED: Artificial Tears Opth Drops 15 ML Bottle EACH EYE PRN (17:00)
[2018-07-06] MEDS: Montelukast 10 MG Tablet PO SCH (17:46)
[2018-07-06 22:05] LABS: Magnesium 1.7 mg/dL (1.5-2.5); Phosphorus 2.4 mg/dL (2.5-4.9)
[2018-07-06 22:39] LABS: Potassium 3.3 meq/L (3.5-5.1)
[2018-07-07] MEDS: Senna/Docusate Sodium 8.6/50 MG Tablet PO SCH ×2 (08:33→22:44)
[2018-07-07] MEDS: dilTIAZem CD 240 MG Capsule PO SCH (08:33)
[2018-07-07] MEDS: Metoclopramide 10 MG Tablet PO SCH ×4 (08:34→20:25)
--- NOTE | 2018-07-07 11:41 | P.PNIM ---
Subjective Interval history: The patient was complaining of lower back pain in his mid back. Otherwise he had no acute complaints. He denied any shortness of breath. He said he was waiting for his daughter. Physical Exam Vital signs: Vital Signs 07/06/18 12:00 07/06/18 12:30 07/06/18 15:42 Temperature 98.5 F 98.3 F Pulse Rate 72 75 76 Respiratory Rate 16 18 Blood Pressure 158/97 H 151/100 H Pulse Oximetry 98 98 07/06/18 16:00 07/06/18 20:00 07/07/18 00:00 Temperature 98.4 F 98.3 F Pulse Rate 74 69 61 Respiratory Rate 12 16 Blood Pressure 143/89 H 140/82 Pulse Oximetry 98 94 L 07/07/18 04:00 Temperature 98.5 F Pulse Rate 62 Respiratory Rate 12 Blood Pressure 144/86 H Pulse Oximetry 96 Intake & Output 07/06/18 07/07/18 07/07/18 18:59 06:59 18:59 Intake Total 1023 / 1023 1000 / 1000 Output Total 500 / 500 Balance 523 / 523 1000 / 1000 Weight 80.5 kg Intake: IV 1000 / 1000 Oral 1023 / 1023 Output: Urine 500 / 500 Other: Date of Last Bowel Movement 07/05/18 07/05/18 07/06/18 Narrative: General: patient in no acute distress HEENT: extraocular movements are intact, lesion on the left side of the patient' s tongue. Cardiovascular: S1-S2 audible, RRR, no murmurs rubs or gallops. Respiratory: clear to auscultation bilaterally. Abdomen: soft, nontender, nondistended, normal bowel sounds. Back: Mild tenderness to palpation of lower back. Extremities: no edema, 2+ distal pulses in bilateral upper and lower extremities. Neuro: 2-3 out of 5 strength of the left upper extremity. Patient can move the rest of his extremities and sensation is intact bilaterally. Results - Labs CBC & Chem 7: 07/05/18 07:34 07/06/18 21:09 Laboratory Results - last 24 hr 07/06/18 07/06/18 21:09 22:29 Sodium 139 Potassium 3.3 L Chloride 101 Carbon Dioxide 30.0 Anion Gap 8 BUN 21 H Creatinine 0.86 Estimated GFR 86 L POC Glucose 123 H Random Glucose 112 H Calcium 8.0 L Phosphorus 2.4 L Magnesium 1.7 Assessment and Plan - Plan Syncope No further episodes. EKG with NSR. Trops negative. S/p IVFs. -tele monitoring. -out of bed with assist. -continue Midodrine. -PT. Urinary tract infection UA indicative of an infection. Urine culture with no growth. -d/c antibiotics. Paroxysmal atrial fibrillation Chronic and currently in sinus rhythm. -continue home Diltiazem and Eliquis. -tele monitoring. Hypokalemia Likely s/t decreased PO intake. -repeat BMP pending. Replete as needed. -tele monitoring. -ADAT. 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 -continue radiation as scheduled. -patient to follow up with oncology outpatient for further management. Anemia Stable. -follow CBC as needed. Back pain Likely positional. Exam unremarkable. -oxycodone as needed. -physical therapy. Disposition The pt and family are very upset with their recent experience at the SNF and would like to remain in-house for the radiation treatments. -case management and supervisors following. DVT ppx: Noy
[2018-07-07 12:51] LABS: Calcium 8.3 mg/dL (8.5-10.1); Carbon Dioxide 32.3 meq/L (21.0-32.0); Magnesium 1.8 mg/dL (1.5-2.5); Potassium 3.6 meq/L (3.5-5.1)
[2018-07-07 12:52] LABS: Phosphorus 2.5 mg/dL (2.5-4.9)
[2018-07-07] MEDS: Montelukast 10 MG Tablet PO SCH (17:01)
[2018-07-08 06:46] LABS: Anion Gap 6 meq/L (5-15); Blood Urea Nitrogen 16 mg/dL (7-18); Calcium 8.2 mg/dL (8.5-10.1); Carbon Dioxide 27.3 meq/L (21.0-32.0); Chloride 103 meq/L (98-107); Glomerular Filtration Rate Greater Than 89 mL/min (>89); Glucose,Random 94 mg/dL (74-106); Sodium 136 meq/L (136-145)
[2018-07-08 07:11] LABS: Potassium 3.7 meq/L (3.5-5.1)
[2018-07-08] MEDS: Senna/Docusate Sodium 8.6/50 MG Tablet PO SCH (08:00)
[2018-07-08] MEDS: Metoclopramide 10 MG Tablet PO SCH ×4 (08:00→20:37)
[2018-07-08] MEDS: dilTIAZem CD 240 MG Capsule PO SCH (08:00)
--- NOTE | 2018-07-08 10:10 | P.PNIM ---
Subjective Interval history: The patient was resting comfortably in bed. He had no acute complaints. He said he was breathing well. He was not very hungry. Discussed with nursing. Physical Exam Vital signs: Vital Signs 07/07/18 12:00 07/07/18 12:50 07/07/18 16:00 Temperature 98.8 F Pulse Rate 68 69 79 Respiratory Rate 20 18 Blood Pressure 117/78 106/82 Pulse Oximetry 96 94 L 07/07/18 16:50 07/07/18 20:00 07/08/18 00:00 Temperature 98.5 F 98.1 F Pulse Rate 68 65 63 Respiratory Rate 14 12 Blood Pressure 136/85 114/68 Pulse Oximetry 97 95 07/08/18 04:00 07/08/18 07:27 07/08/18 08:00 Temperature 98.1 F 98.4 F Pulse Rate 70 69 80 Respiratory Rate 14 18 Blood Pressure 152/91 H 137/86 Pulse Oximetry 95 96 Intake & Output 07/07/18 07/08/18 07/08/18 18:59 06:59 18:59 Intake Total 1000 / 1000 240 / 240 Balance 1000 / 1000 240 / 240 Weight 82.8 kg Intake: IV 1000 / 1000 Oral 240 / 240 Other: # Urine Diapers 2 Date of Last Bowel Movement 07/06/18 07/05/18 07/06/18 Narrative: General: patient in no acute distress HEENT: extraocular movements are intact, lesion on the left side of the patient' s tongue. Cardiovascular: S1-S2 audible, RRR, no murmurs rubs or gallops. Respiratory: clear to auscultation bilaterally. Abdomen: soft, nontender, nondistended, normal bowel sounds. Back: Mild tenderness to palpation of lower back. Extremities: no edema, 2+ distal pulses in bilateral upper and lower extremities. Neuro: 2-3 out of 5 strength of the left upper extremity. Patient can move the rest of his extremities and sensation is intact bilaterally. Results - Labs CBC & Chem 7: 07/05/18 07:34 07/08/18 04:46 Laboratory Results - last 24 hr 07/07/18 07/08/18 11:24 04:46 Sodium 139 136 Potassium 3.6 3.7 Chloride 100 103 Carbon Dioxide 32.3 H 27.3 Anion Gap 7 6 BUN 19 H 16 Creatinine 0.86 0.71 Estimated GFR 86 L Greater than 89 Random Glucose 151 H 94 Calcium 8.3 L 8.2 L Phosphorus 2.5 Magnesium 1.8 Assessment and Plan - Plan Syncope No further episodes. EKG with NSR. Trops negative. S/p IVFs. -tele monitoring. -out of bed with assist. -continue Midodrine. -PT. Urinary tract infection UA indicative of an infection. Urine culture with no growth. -d/c antibiotics. Paroxysmal atrial fibrillation Chronic and currently in sinus rhythm. -continue home Diltiazem and Eliquis. -tele monitoring. Hypokalemia Likely s/t decreased PO intake. -lawrence KCl 20 meq daily. -tele monitoring. -ADAT. 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 -continue radiation as scheduled. -patient to follow up with oncology outpatient for further management. Anemia Stable. -follow CBC as needed. Back pain Likely positional. Exam unremarkable. -oxycodone as needed. -physical therapy. Disposition The pt and family are very upset with their recent experience at the SNF and would like to remain in-house for the radiation treatments. -case management and supervisors following. DVT ppx: Noy
[2018-07-08] MEDS: Potassium Chloride 10 MEQ ER Capsule PO SCH (13:03)
[2018-07-08] MEDS: Montelukast 10 MG Tablet PO SCH (18:16)
[2018-07-09] MEDS: Senna/Docusate Sodium 8.6/50 MG Tablet PO SCH ×3 (04:50→21:50)
[2018-07-09] MEDS: Metoclopramide 10 MG Tablet PO SCH ×4 (09:30→21:50)
[2018-07-09] MEDS: dilTIAZem CD 240 MG Capsule PO SCH (09:30)
[2018-07-09] MEDS: Potassium Chloride 10 MEQ ER Capsule PO SCH (09:30)
[2018-07-09] MEDS ORDERED: Dextrose 5%/NaCl 0.9% Inj 1,000 ML IV.CONT SCH (10:00)
--- NOTE | 2018-07-09 10:00 | P.PNIM ---
Subjective Interval history: The patient was working with physical therapy and he passed out. His blood pressure was noted to drop significantly upon standing. The patient did not hit his head. His family was at the bedside. The patient stated that he needed pain medication for his back pain. His family says that he normally gets his oxycodone standing. His family also mentioned that the patient is normally on an antidepressant. The patient was crying and acting agitated. Discussed with nursing at the bedside. Physical Exam Vital signs: Vital Signs 07/08/18 12:00 07/08/18 16:00 07/08/18 20:00 Temperature 98.4 F 98.2 F 98.3 F Pulse Rate 66 68 65 Respiratory Rate 18 20 14 Blood Pressure 129/85 141/91 H 155/97 H Pulse Oximetry 99 95 98 07/09/18 00:00 07/09/18 04:00 Temperature 98.1 F 98.3 F Pulse Rate 72 58 L Respiratory Rate 16 14 Blood Pressure 126/77 132/89 Pulse Oximetry 94 L 97 Intake & Output 07/08/18 07/09/18 07/09/18 18:59 06:59 18:59 Intake Total 60 / 60 Balance 60 / 60 Weight 82.7 kg Intake: Oral 60 / 60 Other: Date of Last Bowel Movement 07/06/18 07/05/18 Narrative: General: Slightly agitated. HEENT: extraocular movements are intact, lesion on the left side of the patient' s tongue. Cardiovascular: S1-S2 audible, RRR, no murmurs rubs or gallops. Respiratory: clear to auscultation bilaterally. Abdomen: soft, nontender, nondistended, normal bowel sounds. Back: Mild tenderness to palpation of lower back. Extremities: no edema, 2+ distal pulses in bilateral upper and lower extremities. Neuro: 2-3 out of 5 strength of the left upper extremity. Patient can move the rest of his extremities and sensation is intact bilaterally. Results - Labs CBC & Chem 7: 07/05/18 07:34 07/08/18 04:46 Assessment and Plan - Plan Syncope Patient had an additional episode 07/09. Found to be significantly orthostatic. EKG with NSR. Trops negative. -tele monitoring. -out of bed with assist. -continue Midodrine. -PT. -IV fluids. -Neurochecks. Urinary tract infection UA indicative of an infection. Urine culture with no growth. -d/c antibiotics. Paroxysmal atrial fibrillation Chronic and currently in sinus rhythm. -continue home Diltiazem and Eliquis. -tele monitoring. Hypokalemia Likely s/t decreased PO intake. -lawrence KCl 20 meq daily. -tele monitoring. -ADAT. 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 -continue radiation as scheduled. -patient to follow up with oncology outpatient for further management. -Palliative care consult requested for goals of care and pain management. Anemia Stable. -follow CBC as needed. Back pain Likely positional. Exam unremarkable. -oxycodone scheduled. -physical therapy. Disposition The pt and family are very upset with their recent experience at the SNF and would like to remain in-house for the radiation treatments. -case management and supervisors following. Depression The patient's family states he normally takes Paxil. -Resume paroxetine 20 mg p.o. daily. DVT ppx: Eliquis Discharge Planning: The patient's family would like the patient to stay here for his remaining radiation treatments. Follow-up with case management for discharge options
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
[2018-07-09] MEDS: Nystatin/Diphenhydramine/Lidocaine Mouthwash (Adult) 120 ML Botttle SWISH-SWAL SCH ×3 (14:25→21:52)
[2018-07-09] MEDS: Montelukast 10 MG Tablet PO SCH (18:29)
[2018-07-10 06:49] LABS: Hematocrit 27.7 % (39.0-51.0); Hemoglobin 9.3 gm/dL (13.0-17.0); Mean Corpuscular HGB Conc 33.7 % (32.0-36.0); Mean Corpuscular Hemoglobin 32.7 pg (27.0-34.0); Mean Corpuscular Volume 96.9 fL (80.0-100.0); Mean Platelet Volume 7.9 fL (7.0-11.0); Platelet Count 225 th/mm3 (150-450); Red Blood Count 2.86 mil/mm3 (4.50-5.90); Red Cell Distribution Width 16.4 % (11.6-17.2); White Blood Count 8.6 th/mm3 (4.0-11.0)
[2018-07-10 06:58] LABS: Anion Gap 8 meq/L (5-15); Blood Urea Nitrogen 17 mg/dL (7-18); Calcium 8.1 mg/dL (8.5-10.1); Carbon Dioxide 29.5 meq/L (21.0-32.0); Chloride 105 meq/L (98-107); Glomerular Filtration Rate Greater Than 89 mL/min (>89); Glucose,Random 108 mg/dL (74-106); Magnesium 1.8 mg/dL (1.5-2.5); Potassium 3.5 meq/L (3.5-5.1); Sodium 142 meq/L (136-145)
[2018-07-10 06:59] LABS: Phosphorus 2.8 mg/dL (2.5-4.9)
[2018-07-10] MEDS: Nystatin/Diphenhydramine/Lidocaine Mouthwash (Adult) 120 ML Botttle SWISH-SWAL SCH ×4 (10:25→21:51)
[2018-07-10] MEDS: Potassium Chloride 10 MEQ ER Capsule PO SCH (10:27)
[2018-07-10] MEDS: dilTIAZem CD 240 MG Capsule PO SCH (10:27)
[2018-07-10] MEDS: Senna/Docusate Sodium 8.6/50 MG Tablet PO SCH ×2 (10:27→21:50)
[2018-07-10] MEDS: Metoclopramide 10 MG Tablet PO SCH ×4 (10:27→21:50)
--- NOTE | 2018-07-10 13:24 | P.PN ---
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 Vitals stable. Case discussed with RN Physical Exam Vital signs: Vital Signs 07/09/18 16:00 07/09/18 19:29 07/09/18 19:36 Temperature 98.2 F Pulse Rate 77 65 64 Respiratory Rate 18 Blood Pressure 159/92 H Pulse Oximetry 94 L 07/09/18 23:39 07/10/18 00:03 07/10/18 04:05 Temperature 97.9 F Pulse Rate 63 63 59 L Respiratory Rate 18 Blood Pressure 141/86 H Pulse Oximetry 94 L 07/10/18 04:44 07/10/18 08:00 07/10/18 13:06 Temperature 98.1 F 97.4 F L 98.4 F Pulse Rate 63 68 69 Respiratory Rate 18 16 16 Blood Pressure 149/80 H 133/86 161/97 H Pulse Oximetry 95 98 98 Intake & Output 07/09/18 07/10/18 07/10/18 18:59 06:59 18:59 Intake Total 280 / 280 500 / 500 Output Total 5 / 5 Balance 275 / 275 500 / 500 Weight 82.5 kg Intake: IV 500 / 500 D5W/Normal Saline Inj 1,000 ML 500 / 500 @ 100 mls/hr IV.CONT .Q10H [facility] Rx#:[id number] Oral 280 / 280 Output: Urine 4 / 4 Stool / Other: # Urine Diapers 1 Date of Last Bowel Movement 07/09/18 07/09/18 Narrative: General: NAD HEENT: extraocular movements are intact, lesion on the left side of the patient' s tongue. Cardiovascular: S1-S2 audible, RRR, no murmurs rubs or gallops. Respiratory: clear to auscultation bilaterally. Abdomen: soft, nontender, nondistended, normal bowel sounds. Back: Mild tenderness to palpation of lower back. Extremities: no edema, 2+ distal pulses in bilateral upper and lower extremities. Neuro: 2-3 out of 5 strength of the left upper extremity. Patient can move the rest of his extremities and sensation is intact bilaterally. Results - Labs CBC & Chem 7: 07/10/18 05:25 07/10/18 05:25 Laboratory Results - last 24 hr 07/10/18 07/10/18 05:25 05:25 WBC 8.6 RBC 2.86 L Hgb 9.3 L Hct 27.7 L MCV 96.9 MCH 32.7 MCHC 33.7 RDW 16.4 Plt Count 225 MPV 7.9 Sodium 142 Potassium 3.5 Chloride 105 Carbon Dioxide 29.5 Anion Gap 8 BUN 17 Creatinine 0.68 Estimated GFR Greater than 89 Random Glucose 108 H Calcium 8.1 L Phosphorus 2.8 Magnesium 1.8 Assessment and Plan - Plan 77-year-old man with Syncope - Found to be significantly orthostatic. -continue Midodrine. -PT. -IV fluids. -Neurochecks. Urinary tract infection UA indicative of an infection. Urine culture with no growth therefore s/p antibiotics. Paroxysmal atrial fibrillation -continue home Diltiazem and Eliquis. Hypokalemia -Resolved Squamous cell cancer of tongue -continue radiation as scheduled. -patient to follow up with oncology outpatient for further management. -Palliative care consult requested for goals of care and pain management. Anemia Stable. -follow CBC as needed. Back pain -oxycodone scheduled. -physical therapy. Depression -Continue paroxetine 20 mg p.o. daily. DVT ppx: Eliquis
--- NOTE | 2018-07-10 14:09 | P.CONPSY ---
Provisional Diagnosis Admission Date: July 03, 2018 17:16 [place] I.: Delirium due to underlying medical condition History of Present Illness Service: [facility] Primary Care Provider: UNKNOWN Chief Complaint: syncope History of Present Illness: The patient is a 77 year-old man without no previous psychiatric history, no previous suicide attempts, no previous psychiatric hospitalizations, he denies the use of illegal drugs and alcohol, medical history of a-fib, hypertension, orthostatic hypotension, prostate and throat cancer who presented to [facility] presented from [place] to [place] ED on 07/03/2018 for evaluation of dyspnea and syncope. Apparently the patient was being transferred on a [facility] lift when he became short of breath and had a syncopal episode. Symptoms resolved when he was removed from the [facility] lift. Patient was recently hospitalized from 06/22 with syncope and orthostatic hypotension; he was discharged to the SNF on 07/02/2018. Patient was previously evaluated by cardiology and noted to have labile hypertension with autonomic instability and orthostatic hypotension. Pulse 60, respirations 16, BP 160/85, oxygen saturation 97% on room air, oral temperature 98.5. WBC: 10.1, hemoglobin 12.1, hematocrit 35.4, platelets 257, neutrophils 73.2% PT: 11.3, INR 1.1, APTT 30.3 Sodium 141, potassium 2.9, chloride 103, carbon dioxide 28.1, glucose 104, calcium 8.3BUN: 9, creatinine 0.76, GFR >89. Urinalysis consistent with UTI. She is consulted to psychiatry to address decision-making capacity. Chart was reviewed. On my psychiatric evaluation the patient presents very confused, poorly cooperative, with a significant speech delay and blocking thought. The patient is disoriented, he thinks that we are in October 18, 1996, he does not know where he is, he does not know the reason of his hospitalization is not aware of acute medical problems at the moment [facility] - History History Provided By: Medical Record - Medical History Medical History: Medical History (Last Reviewed 07/05/18 @ 09:06 by Susanne Davis) Autonomic instability (Chronic) Orthostatic hypotension (Chronic) Hypertension (Chronic) Syncope (Acute) Squamous cell cancer of tongue (Chronic) Acute UTI (Acute) Acute UTI (Acute) Acute hypokalemia (Acute) Recurrent syncope (Acute) Atrial fibrillation Autonomic dysfunction CHF (congestive heart failure) History of kidney cancer History of prostate cancer Hypertension Throat cancer - Surgical History Surgical History: Surgical History (Last Reviewed 07/05/18 @ 09:06 by Susanne Davis) History of nephrectomy, unilateral Hx of cardiac cath Hx of colonoscopy Hx of hemorrhoidectomy Hx of prostatectomy - Family History Family History: Family History (Last Updated 07/09/18 @ 11:41 by JEROME Gilbert) Brother Family history of cancer Depression - Tobacco History Second Hand Smoke Exposure: No Tobacco Use In Past 30 Days: No Smoking Status: Never smoker - Alcohol History How Often Do You Have a Drink Containing Alcohol: Never - Substance Use History Substance History: No History of Abuse - Travel History Recent Travel in the [place] Within the Last 8 Weeks: No Recent Travel Out of the Country Within the Last 8 Weeks: No - Immunization History Tetanus Immunization: <5 Years Medications and Allergies Active Medications: Active Medications Acetaminophen (Tylenol) 650 mg PO Q4H PRN PRN Reason: Temp > 100.4 Last Admin: 07/06/18 12:36 Dose: 650 mg Al Hydroxide/Mg Hydroxide (Milk Of Magnesia Liq) 30 ml PO Q12H PRN PRN Reason: Mild Constipation Apixaban (Eliquis) 5 mg PO BID [facility] Last Admin: 07/10/18 10:28 Dose: 5 mg Artificial Tears (Tears Naturale Opth Drops) 1 drop EACH EYE Q4H PRN PRN Reason: DISCOMFORT Aspirin (Aspirin Chew) 81 mg PO DAILY [facility] Last Admin: 07/10/18 10:27 Dose: 81 mg Bisacodyl (Dulcolax Supp) 10 mg RECTAL DAILY PRN PRN Reason: SEVERE CONSITIPATION Diltiazem HCl (Cardizem Cd 24hr) 240 mg PO DAILY [facility] Last Admin: 07/10/18 10:27 Dose: 240 mg Lactulose (Lactulose Liq) 30 ml PO DAILY PRN PRN Reason: SEVERE CONSITIPATION Metoclopramide HCl (Reglan) 10 mg PO QID [facility] Last Admin: 07/10/18 13:18 Dose: 10 mg Midodrine (Proamatine) 2.5 mg PO TID [facility] Last Admin: 07/10/18 13:12 Dose: Not Given Miscellaneous (Pill Splitter) 1 each OTHER [facility] Montelukast Sodium (Singulair) 10 mg PO QPM [facility] Last Admin: 07/09/18 18:29 Dose: 10 mg Multi-Ingredient Mouthwash/Gargle (Magic Mouthwash Adult Liq) 10 ml SWISH-SWAL QID [facility] Last Admin: 07/10/18 13:18 Dose: 10 ml Ondansetron HCl (Zofran Inj) 4 mg IV.PUSH Q6H PRN PRN Reason: NAUSEA OR VOMITING Oxycodone HCl (Roxicodone) 7.5 mg PO Q6H [facility] Last Admin: 07/10/18 10:25 Dose: 7.5 mg Paroxetine HCl (Paxil) 20 mg PO DAILY [facility] Last Admin: 07/10/18 10:27 Dose: 20 mg Potassium Chloride (Kcl) 20 meq PO DAILY [facility] Last Admin: 07/10/18 10:27 Dose: 20 meq Senna/Docusate Sodium (Guillermina-Colace) 1 tab PO BID [facility] Last Admin: 07/10/18 10:27 Dose: 1 tab Sennosides (Senokot) 17.2 mg PO Q12H PRN PRN Reason: Moderate Constipation Allergies Allergy/AdvReac Type Severity Reaction Status Date / Time colchicine Allergy Severe Headache Verified 06/22/18 13:28 labetalol Allergy Intermediate Hives Verified 06/22/18 13:28 hydrochlorothiazide AdvReac Intermediate Diarrhea Verified 06/22/18 13:28 Home Medications Medication Instructions Recorded Confirmed Type midodrine 2.5 mg PO TID 06/16/18 07/03/18 History butalbital-acetaminophen 2 tab PO BID PRN 06/22/18 07/03/18 History metoclopramide HCl [Reglan] 10 mg PO QID 06/22/18 07/03/18 History montelukast 10 mg PO QPM 06/22/18 07/03/18 History potassium chloride 10 meq PO BID 06/22/18 07/03/18 History Exam Vital signs: Vital Signs 07/09/18 16:00 07/09/18 19:29 07/09/18 19:36 Temperature 98.2 F Pulse Rate 77 65 64 Respiratory Rate 18 Blood Pressure 159/92 H Pulse Oximetry 94 L 07/09/18 23:39 07/10/18 00:03 07/10/18 04:05 Temperature 97.9 F Pulse Rate 63 63 59 L Respiratory Rate 18 Blood Pressure 141/86 H Pulse Oximetry 94 L 07/10/18 04:44 07/10/18 08:00 07/10/18 13:06 Temperature 98.1 F 97.4 F L 98.4 F Pulse Rate 63 62 69 Respiratory Rate 18 16 16 Blood Pressure 149/80 H 133/86 161/97 H Pulse Oximetry 95 98 98 Intake & Output 07/09/18 07/10/18 07/10/18 18:59 06:59 18:59 Intake Total 280 / 280 500 / 500 Output Total 5 / 5 Balance 275 / 275 500 / 500 Weight 82.5 kg Intake: IV 500 / 500 D5W/Normal Saline Inj 1,000 ML 500 / 500 @ 100 mls/hr IV.CONT .Q10H VARGAS Rx#:[id number] Oral 280 / 280 Output: Urine / Stool Other: # Urine Diapers 1 Date of Last Bowel Movement 07/09/18 07/09/18 Mental Status Examination Appearance: Appropriate Consciousness: Lethargic, Obtunded Orientation: Person Motor Activity: Abnormal gait Speech: Incoherent Language: Adequate Fund of Knowledge: Inadequate Attention and Concentration: Easily distracted Memory: Impaired Mood: Appropriate Affect: Flat Thought Process & Associations: Disorganized Thought Content: Thought blocking Hallucination Type: None Delusion Type: None Suicidal Ideation: No Suicidal Plan: No Suicidal Intention: No Homicidal Ideation: No Homicidal Plan: No Homicidal Intention: No Insight: Fair Judgment: Impulsive Assessment and Plan - Assessment (1) Delirium due to another medical condition Code(s): F05 - Delirium due to known physiological condition Status: Acute (2) Paroxysmal atrial fibrillation with rapid ventricular response Code(s): I48.0 - Paroxysmal atrial fibrillation Status: Chronic - Plan Plan: On my psychiatric evaluation today the patient presents confused, lethargic, disoriented in time and place, unable to cooperate fully with a psychiatric assessment, but also unable to even recognize the reason he is hospitalized at this moment. I saw this patient in January 2018, it was a very different presentation which the patient was completely oriented x3 unable to provide meaningful information for the psychiatric assessment. So at this moment the patient does not have decision-making capacity to participate medical decisions. Patient could benefit of a low dose of antipsychotics, Seroquel 25 mg twice daily to help with the delirium. No criteria for admission at this moment. We will follow-up. Justification for Continued Inpatient Stay: No admission indicated at the moment.
[2018-07-10] MEDS: Montelukast 10 MG Tablet PO SCH (17:47)
[2018-07-11] MEDS: Potassium Chloride 10 MEQ ER Capsule PO SCH (09:10)
[2018-07-11] MEDS: Senna/Docusate Sodium 8.6/50 MG Tablet PO SCH (09:11)
[2018-07-11] MEDS: Metoclopramide 10 MG Tablet PO SCH ×4 (09:11→21:04)
[2018-07-11] MEDS: dilTIAZem CD 240 MG Capsule PO SCH (09:11)
--- NOTE | 2018-07-11 12:06 | P.PN ---
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 Vitals stable. Case discussed with RN July 11, 2018-patient seen and examined, alert and oriented x2, afebrile. no acute event overnight. Physical Exam Vital signs: Vital Signs 07/10/18 13:06 07/10/18 16:00 07/10/18 16:30 Temperature 98.4 F 99 F Pulse Rate 69 70 71 Respiratory Rate 16 16 Blood Pressure 161/97 H 136/77 Pulse Oximetry 98 98 07/10/18 20:00 07/10/18 21:00 07/10/18 22:00 Temperature 98 F Pulse Rate 74 78 72 Respiratory Rate 18 Blood Pressure 173/96 H Pulse Oximetry 95 07/10/18 22:16 07/10/18 23:00 07/11/18 00:00 Temperature 98 F Pulse Rate 64 62 Respiratory Rate 18 Blood Pressure 158/74 H 154/72 H Pulse Oximetry 96 07/11/18 01:00 07/11/18 02:00 07/11/18 03:00 Temperature Pulse Rate 64 62 59 L Respiratory Rate Blood Pressure Pulse Oximetry 07/11/18 04:00 07/11/18 05:00 07/11/18 05:45 Temperature 98 F Pulse Rate 58 L 66 58 L Respiratory Rate 20 Blood Pressure 142/84 H Pulse Oximetry 98 07/11/18 08:00 07/11/18 10:00 Temperature 97.8 F Pulse Rate 83 57 L Respiratory Rate 16 Blood Pressure 136/83 Pulse Oximetry Intake & Output 07/10/18 07/11/18 07/11/18 18:59 06:59 18:59 Intake Total 650 / 650 Balance 650 / 650 Weight 83.5 kg Intake: Oral 650 / 650 Other: # Incontinent Voids 1 # Urine Diapers 4 Date of Last Bowel Movement 07/09/18 Narrative: General: NAD HEENT: extraocular movements are intact, lesion on the left side of the patient' s tongue. Cardiovascular: S1-S2 audible, RRR, no murmurs rubs or gallops. Respiratory: clear to auscultation bilaterally. Abdomen: soft, nontender, nondistended, normal bowel sounds. Back: Mild tenderness to palpation of lower back. Extremities: no edema, 2+ distal pulses in bilateral upper and lower extremities. Neuro: 2-3 out of 5 strength of the left upper extremity. Patient can move the rest of his extremities and sensation is intact bilaterally. Results - Labs CBC & Chem 7: 07/10/18 05:25 07/10/18 05:25 Assessment and Plan - Plan 77-year-old man with Syncope-resolved - Found to be significantly orthostatic. -continue Midodrine and Florinef. -PT. -Neuro checks. Urinary tract infection UA indicative of an infection. Urine culture with no growth therefore s/p antibiotics. Paroxysmal atrial fibrillation -continue home Diltiazem and Eliquis. Hypokalemia -Resolved Squamous cell cancer of tongue -continue radiation as scheduled. -patient to follow up with oncology outpatient for further management. -Palliative care consult requested for goals of care and pain management. Anemia Stable. -follow CBC as needed. Back pain -oxycodone scheduled. -physical therapy. Depression -Continue paroxetine 20 mg p.o. daily. Delirium -Appreciate input from psychiatry -Continue Seroquel 25 mg at bedtime DVT ppx: Eliquis
[2018-07-11] MEDS: Nystatin/Diphenhydramine/Lidocaine Mouthwash (Adult) 120 ML Botttle SWISH-SWAL SCH ×3 (12:26→21:11)
--- NOTE | 2018-07-11 17:27 | P.PNPAL ---
Reason for Visit Reason for visit: a. To assist with evaluation and management of symptoms including: pain, depression b. To assist medical decision maker(s) with: better understanding of current medical conditions; weighing benefits/burdens of medical treatment options; making medical treatment decisions. Subjective Subjective/Interval History: Follow up visit for symptom management and clarification of medical treatment goal. Patient seen and assessed in room 243. No family at bedside. Patient is more alert today. He denies pain on exam. Current orders for Oxycodone 7.5mg PO [id number]. Psychiatry evaluated the patient on 07/10/2018; patient not capacitated for medical decision-making. A healthcare surrogate designation form was completed on 04/30/2018 designating patient's grandson (Damien Leo) as the primary healthcare surrogate decision-maker. Daughter, Jillian Francis, is the alternate. Palliative care attempted to contact both Damien and Jillian at the listed numbers. Unable to leave a message for the patient's grandson, but palliative care contact information was left on a voicemail for Jillian Francis. Patient started on Paxil 20 mg daily on 07/09/18. No recent lab work or imaging available. Discussed patient with CM (Austin Rodriguez) and RN (Ariella). Case management working on placement for this patient when stable. Family/Friend Interactions: See interval note Advance Directives Advance Directives Date on File: 04/30/18 Health Care Surrogate Name and Number: Damien Leo (grandson) [phone] Objective Vital Signs: Vital Signs 07/10/18 20:00 07/10/18 21:00 07/10/18 22:00 Temperature 98 F Pulse Rate 74 78 72 Respiratory Rate 18 Blood Pressure 173/96 H Pulse Oximetry 95 07/10/18 22:16 07/10/18 23:00 07/11/18 00:00 Temperature 98 F Pulse Rate 64 62 Respiratory Rate 18 Blood Pressure 158/74 H 154/72 H Pulse Oximetry 96 07/11/18 01:00 07/11/18 02:00 07/11/18 03:00 Temperature Pulse Rate 64 62 59 L Respiratory Rate Blood Pressure Pulse Oximetry 07/11/18 04:00 07/11/18 05:00 07/11/18 05:45 Temperature 98 F Pulse Rate 58 L 66 58 L Respiratory Rate 20 Blood Pressure 142/84 H Pulse Oximetry 98 07/11/18 08:00 07/11/18 10:00 07/11/18 12:00 Temperature 97.8 F 98.0 F Pulse Rate 83 57 L 62 Respiratory Rate 16 16 Blood Pressure 136/83 123/82 Pulse Oximetry 94 L 07/11/18 17:06 Temperature 97.6 F Pulse Rate 61 Respiratory Rate 16 Blood Pressure 111/74 Pulse Oximetry 95 Intake & Output 07/10/18 07/11/18 07/11/18 18:59 06:59 18:59 Intake Total 650 / 650 Balance 650 / 650 Weight 83.5 kg Intake: Oral 650 / 650 Other: # Incontinent Voids 1 # Urine Diapers 4 Date of Last Bowel Movement 07/09/18 Physical Exam: CONSTITUTIONAL/GENERAL: This is an adequately nourished patient, in no apparent distress. TUBES/LINES/DRAINS: PIV SKIN: No jaundice, rashes, or lesions. Ecchymoses on upper extremities. No wounds seen anteriorly. Skin temperature appropriate. Not diaphoretic. HEAD: Atraumatic. Normocephalic. EYES: Pupils equal and round and reactive. Extraocular motions intact. No scleral icterus. No injection or drainage. Fundi not examined. ENT: Hearing grossly normal. Nose without bleeding or purulent drainage. NECK: Trachea midline. Supple, nontender. No palpable thyroid enlargement or nodularity. CARDIOVASCULAR: Regular rate and rhythm without murmurs, gallops, or rubs. No JVD. Peripheral pulses symmetric. RESPIRATORY/CHEST: Symmetric, unlabored respirations. Clear to auscultation. Breath sounds equal bilaterally. No wheezes, rales, or rhonchi. GASTROINTESTINAL: Abdomen soft, non-tender, nondistended. No guarding. Bowel sounds present. GENITOURINARY: Without palpable bladder distension. Tesfaye catheter in place. MUSCULOSKELETAL: Mild tenderness to palpation of lower back. Extremities without clubbing, cyanosis, or edema. No mottling or clubbing. NEUROLOGICAL: Awake and alert. Flat affect. Answers question with breif answer PSYCHIATRIC: No agitation. No apparent hallucinations or other psychotic thought process. Diagnostic Tests Laboratory: Laboratory Results - last 72 hr 07/10/18 07/10/18 05:25 05:25 WBC 8.6 RBC 2.86 L Hgb 9.3 L Hct 27.7 L MCV 96.9 MCH 32.7 MCHC 33.7 RDW 16.4 Plt Count 225 MPV 7.9 Sodium 142 Potassium 3.5 Chloride 105 Carbon Dioxide 29.5 Anion Gap 8 BUN 17 Creatinine 0.68 Estimated GFR Greater than 89 Random Glucose 108 H Calcium 8.1 L Phosphorus 2.8 Magnesium 1.8 Result Diagrams: 07/10/18 05:25 07/10/18 05:25 Microbiology: Microbiology 07/03/18 15:30 Catheterized Urine Urine Culture - Final No growth in 48 hours Imaging: Chest X-Ray 07/03/18 14:38 CONCLUSION: Negative examination. Head CT 07/03/18 14:38 CONCLUSION: No acute intracranial findings. . Assessment and Plan - Disease Oriented Problem List (1) Syncope due to autonomic failure Comment: = Admitted to the medical telemetry floor = Serial cardiac enzymes- negative = Continue Midrin = Out of bed with assist only (2) UTI (urinary tract infection) Comment: = Urine culture pending, previous UA consistent with E. 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 He is a ; his of 57 years dies last year from breast cancer. He has 2 adult daughters and 4 grandchildren. Patient has been depressed since his ; denies suicidal ideation. He had a brother who committed suicide. Spiritual: Voodoo aminata Legal: Healthcare surrogate designation form was completed on 04/30/2018 designating grandson (Damien Garcia) as the primary healthcare surrogate decision-maker. Daughter (Jillian Francis) is designated as the alternate HCS. Ethical issues impacting care: No known ethical issues impacting care at this time. 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 He is having orthostatic hypotension , dysphagia, odynophagia, decreased PO intakewith associated weight loss. Patient undergoing concurrent chemo with weekly cisplatin. Prognosis guarded. Code Status: Full Code Plan: * FULL CODE * A healthcare surrogate designation form was completed on 04/30/2018 designating patient's grandson (Damien Leo) as the primary healthcare surrogate decision-maker. Daughter, Jillian Francis, is the alternate. * Psychiatry evaluated the patient on 07/10/2018; patient not capacitated for medical decision-making. Patient started on Paxil 20 mg daily on 07/09/18. * Discussed patient with CM (Austin Rodriguez) and RN (Ariella). Case management working on placement for this patient when stable. * Palliative care attempted to contact both Damien and Jillian at the listed numbers. Unable to leave a message for the patient's grandson, but palliative care contact information was left on a voicemail for Jillian Francis. * Symptom management: Pain: Multifactoral, acute and chronic. He admits to discomfort in his throat and lower back but does not rate or describe his pain. His family states is on scheduled oxycodone at home. The patient is unable to provide any information on his home medications. PRN oxycodone was discontinued and the patient was started on scheduled oxycodone 7.5 mg PO q6 hours ATC. Depression: Situational. Pt. lost his last year at this time. Psychiatry consulted for capacity; patient currently does not have capacity for medical decision-making. Previously on fluoxetine 20mg daily-restarted 07/09/18 * Palliative care will continue to follow this patient throughout his hospitalization to establish trust, assist with symptom management and clarification of medical treatment goals.
[2018-07-11] MEDS: Montelukast 10 MG Tablet PO SCH ×2 (18:52→21:04)
[2018-07-12] MEDS: dilTIAZem CD 240 MG Capsule PO SCH (08:25)
[2018-07-12] MEDS: Metoclopramide 10 MG Tablet PO SCH ×4 (08:25→20:54)
[2018-07-12] MEDS: Potassium Chloride 10 MEQ ER Capsule PO SCH (08:26)
[2018-07-12] MEDS: Nystatin/Diphenhydramine/Lidocaine Mouthwash (Adult) 120 ML Botttle SWISH-SWAL SCH ×4 (08:26→20:55)
--- NOTE | 2018-07-12 11:45 | P.PN ---
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 Vitals stable. Case discussed with RN July 11, 2018-patient seen and examined, alert and oriented x2, afebrile. no acute event overnight. July 12, 2018-patient seen and examined, answering my questions, follows some commands. Afebrile. Physical Exam Vital signs: Vital Signs 07/11/18 12:00 07/11/18 17:06 07/11/18 18:00 Temperature 98.0 F 97.6 F Pulse Rate 62 61 64 Respiratory Rate 16 16 Blood Pressure 123/82 111/74 Pulse Oximetry 94 L 95 07/11/18 19:35 07/11/18 21:42 07/11/18 23:15 Temperature 98.1 F 98.5 F Pulse Rate 65 58 L 66 Respiratory Rate 16 18 Blood Pressure 117/78 133/94 H Pulse Oximetry 95 94 L 07/12/18 00:01 07/12/18 03:51 07/12/18 03:59 Temperature 98.1 F Pulse Rate 66 68 72 Respiratory Rate 18 Blood Pressure 103/73 Pulse Oximetry 95 07/12/18 08:00 07/12/18 09:00 07/12/18 09:37 Temperature 98.7 F Pulse Rate 67 72 68 Respiratory Rate 16 Blood Pressure 134/91 H Pulse Oximetry 95 07/12/18 11:00 Temperature Pulse Rate 70 Respiratory Rate Blood Pressure Pulse Oximetry Intake & Output 07/11/18 07/12/18 07/12/18 18:59 06:59 18:59 Intake Total 240 / 240 Output Total 150 / 150 Balance 90 / 90 Weight 82 kg Intake: Oral 240 / 240 Output: Urine 150 / 150 Other: # Voids 5 # Incontinent Voids 1 Date of Last Bowel Movement 07/09/18 07/09/18 Results - Labs CBC & Chem 7: 07/10/18 05:25 07/10/18 05:25 Assessment and Plan - Plan 77-year-old man with Syncope-resolved - Found to be significantly orthostatic. -continue Midodrine and Florinef. -PT. -Neuro checks. Urinary tract infection UA indicative of an infection. Urine culture with no growth therefore s/p antibiotics. Paroxysmal atrial fibrillation -continue home Diltiazem and Eliquis. Hypokalemia -Resolved Squamous cell cancer of tongue -continue radiation as scheduled. -patient to follow up with oncology outpatient for further management. -Palliative care consult requested for goals of care and pain management. Anemia Stable. -follow CBC as needed. Back pain -oxycodone scheduled. -physical therapy. Depression -Continue paroxetine 20 mg p.o. daily. Delirium -Appreciate input from psychiatry -Continue Seroquel 25 mg at bedtime DVT ppx: Eliquis
[2018-07-12] MEDS: Montelukast 10 MG Tablet PO SCH (17:36)
[2018-07-13] MEDS: Nystatin/Diphenhydramine/Lidocaine Mouthwash (Adult) 120 ML Botttle SWISH-SWAL SCH ×4 (10:02→21:16)
[2018-07-13] MEDS: dilTIAZem CD 240 MG Capsule PO SCH (10:02)
[2018-07-13] MEDS: Metoclopramide 10 MG Tablet PO SCH ×4 (10:02→21:17)
[2018-07-13] MEDS: Potassium Chloride 10 MEQ ER Capsule PO SCH (10:03)
--- NOTE | 2018-07-13 11:10 | P.PN ---
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 Vitals stable. Case discussed with RN July 11, 2018-patient seen and examined, alert and oriented x2, afebrile. no acute event overnight. July 12, 2018-patient seen and examined, answering my questions, follows some commands. Afebrile. July 13, 2018-patient seen and examined, stable and no complaint; daughter by the bedside and would like his Pain med to be switched to Q8H as well as requesting that he be given a mechanical soft diet Physical Exam Vital signs: Vital Signs 07/12/18 12:00 07/12/18 13:00 07/12/18 14:00 Temperature 98.8 F Pulse Rate 72 78 72 Respiratory Rate 18 Blood Pressure 129/79 Pulse Oximetry 97 07/12/18 14:42 07/12/18 16:00 07/12/18 17:00 Temperature 98.4 F Pulse Rate 80 71 71 Respiratory Rate 16 Blood Pressure 147/99 H Pulse Oximetry 96 07/12/18 17:25 07/12/18 19:00 07/12/18 19:38 Temperature 97.9 F Pulse Rate 73 74 71 Respiratory Rate 18 Blood Pressure 157/96 H Pulse Oximetry 96 07/12/18 20:00 07/12/18 21:00 07/12/18 22:00 Temperature Pulse Rate 73 70 75 Respiratory Rate Blood Pressure Pulse Oximetry 07/12/18 23:00 07/13/18 00:00 07/13/18 01:00 Temperature 97.5 F L Pulse Rate 74 75 74 Respiratory Rate 16 Blood Pressure 164/94 H Pulse Oximetry 95 07/13/18 02:00 07/13/18 03:00 07/13/18 04:00 Temperature 98.0 F Pulse Rate 70 72 72 Respiratory Rate 18 Blood Pressure 144/79 H Pulse Oximetry 96 07/13/18 05:00 07/13/18 06:00 07/13/18 07:00 Temperature Pulse Rate 70 69 69 Respiratory Rate Blood Pressure Pulse Oximetry 07/13/18 08:00 Temperature 97.8 F Pulse Rate 72 Respiratory Rate 18 Blood Pressure 149/95 H Pulse Oximetry 95 Intake & Output 07/12/18 07/13/18 07/13/18 18:59 06:59 18:59 Intake Total 810 / 810 480 / 480 Output Total 550 / 550 475 / 475 Balance 260 / 260 5 / 5 Weight 82 kg Intake: Oral 810 / 810 480 / 480 Output: Urine 550 / 550 475 / 475 Other: # Voids 1 # Incontinent Voids 1 Date of Last Bowel Movement 07/09/18 07/13/18 07/13/18 # Incontinent Bowel Movements 1 Narrative: General: NAD HEENT: extraocular movements are intact, lesion on the left side of the patient' s tongue. Cardiovascular: S1-S2 audible, RRR, no murmurs rubs or gallops. Respiratory: clear to auscultation bilaterally. Abdomen: soft, nontender, nondistended, normal bowel sounds. Back: Mild tenderness to palpation of lower back. Extremities: no edema, 2+ distal pulses in bilateral upper and lower extremities. Neuro: 2-3 out of 5 strength of the left upper extremity. Patient can move the rest of his extremities and sensation is intact bilaterally. Results - Labs CBC & Chem 7: 07/10/18 05:25 07/10/18 05:25 Assessment and Plan - Plan 77-year-old man with Syncope-resolved -Hold Midodrine and d/c Florinef. BP improved -PT. -Neuro checks. Urinary tract infection UA indicative of an infection. Urine culture with no growth therefore s/p antibiotics. Paroxysmal atrial fibrillation -continue home Diltiazem and Eliquis. Hypokalemia -Resolved Squamous cell cancer of tongue -continue radiation as scheduled. -patient to follow up with oncology outpatient for further management. -Palliative care consult requested for goals of care and pain management. -Consult speech therapy to assess for swallow eval -Change Oxycodone to Q8H scheduled Anemia Stable. -follow CBC as needed. Back pain -oxycodone scheduled. -physical therapy. Depression -Continue paroxetine 20 mg p.o. daily. Delirium -Appreciate input from psychiatry -Continue Seroquel 25 mg at bedtime DVT ppx: Eliquis
[2018-07-13] MEDS: Montelukast 10 MG Tablet PO SCH (17:36)
[2018-07-14] MEDS: dilTIAZem CD 240 MG Capsule PO SCH (08:24)
[2018-07-14] MEDS: Metoclopramide 10 MG Tablet PO SCH ×4 (08:24→21:01)
[2018-07-14] MEDS: Nystatin/Diphenhydramine/Lidocaine Mouthwash (Adult) 120 ML Botttle SWISH-SWAL SCH ×4 (11:09→21:02)
--- NOTE | 2018-07-14 11:12 | P.PN ---
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 Stable and no complaint this morning. Afebrile. Physical Exam Vital signs: Vital Signs 07/13/18 12:00 07/13/18 16:00 07/13/18 20:00 Temperature 98.1 F 98.7 F 98.1 F Pulse Rate 69 66 62 Respiratory Rate 18 18 20 Blood Pressure 157/91 H 146/82 H 148/83 H Pulse Oximetry 95 96 95 07/14/18 00:00 07/14/18 00:19 07/14/18 04:00 Temperature 98.1 F 97.6 F Pulse Rate 61 69 61 Respiratory Rate 16 18 Blood Pressure 149/85 H 136/90 Pulse Oximetry 95 94 L 07/14/18 08:00 Temperature 97.6 F Pulse Rate 67 Respiratory Rate 18 Blood Pressure 138/97 H Pulse Oximetry 98 Intake & Output 07/13/18 07/14/18 07/14/18 18:59 06:59 18:59 Intake Total 720 / 720 Output Total 400 / 400 Balance 320 / 320 Weight 82.1 kg Intake: Oral 720 / 720 Output: Urine 400 / 400 Other: Date of Last Bowel Movement 07/13/18 07/13/18 07/13/18 Narrative: General: NAD HEENT: extraocular movements are intact, lesion on the left side of the patient' s tongue. Cardiovascular: S1-S2 audible, RRR, no murmurs rubs or gallops. Respiratory: clear to auscultation bilaterally. Abdomen: soft, nontender, nondistended, normal bowel sounds. Extremities: no edema, 2+ distal pulses in bilateral upper and lower extremities. Neuro: 2-3 out of 5 strength of the left upper extremity. Patient can move the rest of his extremities and sensation is intact bilaterally. Results - Labs CBC & Chem 7: 07/10/18 05:25 07/10/18 05:25 Assessment and Plan - Plan 77-year-old man with Syncope-resolved -Hold Midodrine and d/c Florinef. BP improved -PT. -Neuro checks. Urinary tract infection UA indicative of an infection. Urine culture with no growth therefore s/p antibiotics. Paroxysmal atrial fibrillation -continue home Diltiazem and Eliquis. Hypokalemia -Resolved Squamous cell cancer of tongue -continue radiation as scheduled. -patient to follow up with oncology outpatient for further management. -Palliative care consult requested for goals of care and pain management. -Oxycodone Q8H scheduled Anemia Stable. -follow CBC as needed. Back pain -oxycodone scheduled. -physical therapy. Depression -Continue paroxetine 20 mg p.o. daily. Delirium -Appreciate input from psychiatry -Continue Seroquel 25 mg at bedtime DVT ppx: Elitim
[2018-07-14] MEDS: Montelukast 10 MG Tablet PO SCH (18:30)
[2018-07-15] MEDS: Acetaminophen 325 MG Tablet PO PRN (00:58)
[2018-07-15 09:09] LABS: Baso % (Auto) 0.4 % (0.0-2.0); Hematocrit 28.6 % (39.0-51.0); Hemoglobin 10.3 gm/dL (13.0-17.0); Lymph # (Auto) 1.7 th/mm3 (1.0-4.8); Lymph % (Auto) 24.7 % (9.0-44.0); Mean Corpuscular HGB Conc 35.9 % (32.0-36.0); Mean Corpuscular Hemoglobin 34.2 pg (27.0-34.0); Mean Corpuscular Volume 95.5 fL (80.0-100.0); Mean Platelet Volume 6.8 fL (7.0-11.0); Mono # (Auto) 0.6 th/mm3 (0.0-0.9); Mono % (Auto) 9.1 % (0.0-8.0); Neut # (Auto) 4.5 th/mm3 (1.8-7.7); Neut % (Auto) 65.8 % (16.0-70.0); Platelet Count 297 th/mm3 (150-450); White Blood Count 6.9 th/mm3 (4.0-11.0)
--- NOTE | 2018-07-15 09:09 | CT ---
EXAM DATE: 07/15/2018 9:03 AM EST AGE/SEX: 77 years / Male INDICATIONS: Stroke alert, left sided facial droop. CLINICAL DATA: This is the patient's initial encounter. Patient reports that signs and symptoms have been present for 1 day and indicates a pain score of Nonresponsive. MEDICAL/SURGICAL HISTORY: Non-responsive. Non-responsive. RADIATION DOSE: 56.35 CTDI (mGy) COMPARISON: [facility] – [place], CT HEAD W/O CONTRAST, 07/03/2018. . TECHNIQUE: CT of the head without contrast. Using automated exposure control and adjustment of the mA and/or kV according to patient size, radiation dose was kept as low as reasonably achievable to ob tain optimal diagnostic quality images. DICOM format image data is available electronically for revi ew and comparison. FINDINGS: Cerebrum: The ventricles and cortical sulci are widened. There appear to be old lacunar infarct at the posterior lateral left basal ganglia and at the posterior limb of the internal capsule on the rig ht. No evidence of midline shift, mass lesion, hemorrhage or acute infarction. No extraaxial fluid c ollections are seen. Posterior Fossa: The cerebellum and brainstem are intact. The 4th ventricle is midline. The cerebe llopontine angle is unremarkable. Extracranial: The visualized portion of the orbits is intact. Skull: The calvaria is intact. No evidence of skull fracture. CONCLUSION: 1. No acute areas of hemorrhage or mass effect are seen. 2. Atrophy. 3. Old lacunar infarct. Report was called by by Dr. Carlos to Dr. Serrano at 9:06 AM.] Electronically signed by: Leoncio Carlos MD 07/15/2018 9:08 AM EST
[2018-07-15 09:20] LABS: Activated Partial Thrombo Time 30.2 sec (23.4-31.7); INR 1.1 Ratio; Prothrombin Time 11.2 sec (9.8-11.6)
[2018-07-15 09:34] LABS: Creatine Kinase 24 U/L (39-308)
[2018-07-15] MEDS: dilTIAZem CD 240 MG Capsule PO SCH (11:49)
[2018-07-15] MEDS: Metoclopramide 10 MG Tablet PO SCH ×4 (11:50→22:06)
[2018-07-15] MEDS: Nystatin/Diphenhydramine/Lidocaine Mouthwash (Adult) 120 ML Botttle SWISH-SWAL SCH ×4 (11:50→22:06)
--- NOTE | 2018-07-15 12:18 | P.PN ---
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 Stable and no complaint this morning. Afebrile. July 15, 2018-patient seen and examined, stroke alert was called earlier .head CT unremarkable brain MRI. During my assessment, patient was stable and following commands. Physical Exam Vital signs: Vital Signs 07/14/18 13:00 07/14/18 14:00 07/14/18 15:00 Temperature Pulse Rate 64 65 62 Respiratory Rate Blood Pressure Pulse Oximetry 07/14/18 16:00 07/14/18 17:00 07/14/18 18:00 Temperature 97.9 F Pulse Rate 64 62 63 Respiratory Rate 18 Blood Pressure 125/82 Pulse Oximetry 98 07/14/18 19:00 07/14/18 20:00 07/14/18 21:00 Temperature 97.5 F L Pulse Rate 61 66 64 Respiratory Rate 18 Blood Pressure 141/82 H Pulse Oximetry 97 07/14/18 21:39 07/14/18 22:00 07/14/18 23:00 Temperature Pulse Rate 62 73 Respiratory Rate 18 Blood Pressure Pulse Oximetry 07/14/18 23:17 07/15/18 00:00 07/15/18 01:00 Temperature 96.9 F L Pulse Rate 65 66 70 Respiratory Rate 18 Blood Pressure 142/99 H Pulse Oximetry 96 07/15/18 02:00 07/15/18 03:00 07/15/18 04:00 Temperature 97.2 F L Pulse Rate 69 69 72 Respiratory Rate 18 Blood Pressure 137/90 Pulse Oximetry 99 07/15/18 05:00 07/15/18 06:00 07/15/18 06:39 Temperature Pulse Rate 72 68 Respiratory Rate 18 Blood Pressure Pulse Oximetry Intake & Output 07/14/18 07/15/18 07/15/18 18:59 06:59 18:59 Intake Total 740 / 740 480 / 480 Output Total 200 / 200 Balance 740 / 740 280 / 280 Weight 80 kg Intake: Oral 740 / 740 480 / 480 Output: Urine 200 / 200 Other: # Voids 3 # Incontinent Voids 2 Date of Last Bowel Movement 07/13/18 07/15/18 # Bowel Movements 1 Narrative: GENERAL: SKIN: Warm and dry. HEAD: Normocephalic. EYES: No scleral icterus. No injection or drainage. Mouth:lesion on the left side of the patient's tongue NECK: Supple, trachea midline. No JVD or lymphadenopathy. CARDIOVASCULAR: Regular rate and rhythm without murmurs, gallops, or rubs. RESPIRATORY: Breath sounds equal bilaterally. No accessory muscle use. GASTROINTESTINAL: Abdomen soft, non-tender, nondistended. MUSCULOSKELETAL: No cyanosis, or edema. 2+ distal pulses in bilateral upper and lower extremities. BACK: Nontender without obvious deformity. No CVA tenderness. Neuro: 2-3 out of 5 strength of the left upper extremity. Patient can move the rest of his extremities and sensation is intact bilaterally Results - Labs CBC & Chem 7: 07/15/18 08:45 07/10/18 05:25 Laboratory Results - last 24 hr 07/15/18 07/15/18 07/15/18 08:37 08:45 08:45 WBC 6.9 RBC 3.00 L Hgb 10.3 L POC Hgb (Calc) 9.5 L Hct 28.6 L POC Hct 28.0 L MCV 95.5 MCH 34.2 H MCHC 35.9 RDW 16.0 Plt Count 297 D MPV 6.8 L Neut % (Auto) 65.8 Lymph % (Auto) 24.7 Cecil % (Auto) 9.1 H Eos % (Auto) 0.0 Baso % (Auto) 0.4 Neut # (Auto) 4.5 Lymph # (Auto) 1.7 Cecil # (Auto) 0.6 Eos # (Auto) 0.0 Baso # (Auto) 0.0 WBC Differential . Differential Comment Auto diff final PT INR APTT Fibrinogen POC Sodium 140 POC Potassium 3.5 L POC Chloride 97 L POC BUN 11 POC Creatinine 0.8 POC Glucose 123 H 123 H Total Creatine Kinase Troponin I Blood Type Antibody Screen 07/15/18 07/15/18 07/15/18 08:45 08:45 08:45 WBC RBC Hgb POC Hgb (Calc) Hct POC Hct MCV MCH MCHC RDW Plt Count MPV Neut % (Auto) Lymph % (Auto) Cecil % (Auto) Eos % (Auto) Baso % (Auto) Neut # (Auto) Lymph # (Auto) Cecil # (Auto) Eos # (Auto) Baso # (Auto) WBC Differential Differential Comment PT 11.2 INR 1.1 APTT 30.2 Fibrinogen 446 H POC Sodium POC Potassium POC Chloride POC BUN POC Creatinine POC Glucose Total Creatine Kinase 24 L Troponin I Less than 0.02 L Blood Type A Negative Antibody Screen Negative - Imaging Impressions Head CT 07/15/18 08:49 CONCLUSION: 1. No acute areas of hemorrhage or mass effect are seen. 2. Atrophy. 3. Old lacunar infarct. Report was called by by Dr. Carlos to Dr. Serrano at 9:06 AM.] Assessment and Plan - Plan 77-year-old man with Stroke alert called 07/15/[address] negative Brain MRI/MRA pending Neurology consultation pending Syncope-resolved -d/c Midodrine and Florinef. BP improved -PT. -Neuro checks. Urinary tract infection UA indicative of an infection. Urine culture with no growth therefore s/p antibiotics. Paroxysmal atrial fibrillation -continue home Diltiazem and Eliquis. Hypokalemia -Resolved Squamous cell cancer of tongue -continue radiation as scheduled. -patient to follow up with oncology outpatient for further management. -Palliative care consult requested for goals of care and pain management. -Oxycodone Q8H scheduled Anemia Stable. -follow CBC as needed. Back pain -oxycodone scheduled. -physical therapy. Depression -Continue paroxetine 20 mg p.o. daily. Delirium-Improving -Appreciate input from psychiatry -Continue Seroquel 25 mg at bedtime DVT ppx: Eliquis
--- NOTE | 2018-07-15 12:29 | MB ---
cc: Leobardo Serrano MD DATE: 07/15/2018 REASON FOR CONSULTATION: He was called as a stroke alert. HISTORY OF PRESENT ILLNESS: This is a 77-year-old man with a history of atrial fibrillation, on Eliquis; hypertension; prostate and throat cancer; autonomic instability; orthostatic hypotension, from [facility]. He had shortness of breath and had a syncopal episode and thus, brought into the hospital and admitted on 07/03/2018. Then this morning, the nurse came in and found he was weak on the left side, a little lethargic and called a stroke alert, but actually, when they called a nurse who had him yesterday, they found that his baseline was weakness on the left side. In fact, the H and P when he was admitted showed that he was weak on the left side and about a 2/3 in the left upper extremity. REVIEW OF SYSTEMS: Really unable to obtain from the patient. HOME MEDICATIONS: He was on: 1. Aspirin 81. 2. Butalbital. 3. Diltiazem. 4. Eliquis 5 b.i.d. 5. Reglan. 6. Midodrine. 7. Montelukast. 8. Oxycodone 7.5 q.6 hours p.r.n. 9. Lexapro 20 a day. 10. Potassium. ALLERGIES: COLCHICINE, LABETALOL AND HYDROCHLOROTHIAZIDE. SOCIAL HISTORY: Not a smoker, not a drinker. [facility]. PAST MEDICAL HISTORY: As above. Also, history of nephrectomy, unilateral; cardiac catheterization; colonoscopy; prostatectomy; hypokalemia; UTI; atrial fibrillation; autonomic dysfunction and instability; CHF; kidney cancer; prostate cancer; hypertension; orthostatic hypotension; recurrent syncope; squamous cell cancer of the tongue; throat cancer. CURRENT MEDICATIONS: He is on: 1. Eliquis. 2. Baby aspirin. 3. Reglan. 4. Midodrine 2.5 t.i.d. 5. Oxycodone. 6. Paxil. PHYSICAL EXAMINATION: GENERAL: He knows he is in the hospital. He was off on the year. NECK: There are no carotid bruits. HEART: Regular rate and rhythm. I do not detect a murmur. VITAL SIGNS: Afebrile, 53, 18, 137/90. NEUROLOGIC: Pupils are equal. Visual li are full. Extraocular movements intact without nystagmus. Face moves symmetrically with normal sensation. Tongue is somewhat atrophied and could not quite get all the way to the right with it. He prefers going to the left. He has normal strength in the right upper extremity and bilateral lower extremities. In the left upper extremity, his triceps is normal, as are finger extensors, but he has some slowness of movement there. I would put him at probably a 4+/5 in the left upper extremity in general. He cannot really get his hand up to his face on the left. He has increased tone in the bilateral lower extremities and the left upper extremity, not so much in the right upper extremity. The left toe is up, the right is down. Pinprick, however, is intact in all 4 extremities. He is not ataxic on [id number] on the right. He cannot get there on the left. LABORATORY DATA: He has been anemic with hematocrit of 28 five days ago. His UA was positive with 42 white cells on 07/03/2018. His BMP on the 07/10/2018 was normal. Calcium, phosphorus, magnesium normal except calcium was 8.1. Coags were normal on admission. Troponin was negative on admission. LFTs were normal. Total protein was normal. In the past, it looks like he had a normal serum protein electrophoresis. LDL has been normal. B12 and thyroid have been normal in the past. IMAGING DATA: He had a CAT scan of his brain which was negative on 07/03/2018. He had an MRA of the [place] in January which was negative. He had a carotid ultrasound at that time that was negative. He had an MRI of his brain in January that showed some white matter changes, otherwise unremarkable. He has not been seen by neurology here before. IMPRESSION: Some mild dementia, some left upper extremity weakness, spasticity and some left lower extremity upgoing toe. It looks like he has probably had a stroke at one time, but this appears to be chronic. The tongue changes are from his tongue cancer. I do not think there is anything new here, and in fact, the nurse today at the stroke alert says that this is all old and it is nothing new. A CAT scan is being done. We will check an MRI on him, but I think a new stroke here is not likely, just old findings. He has some bilateral lower extremity spasticity. We can check an MRI of his cervical spine also and continue him on the Eliquis with his atrial fibrillation. ADDENDUM: NIH stroke scale was a 2. MD FATUMA Shoemaker/shanna , 09:08 AM , 09:19 AM
--- NOTE | 2018-07-15 13:41 | MR ---
EXAM DATE: 07/15/2018 1:26 PM EST AGE/SEX: 77 years / Male INDICATIONS: Left sided weakness. Slurred speech. left facial droop, aphasia. CLINICAL DATA: This is the patient's initial encounter. Patient reports that signs and symptoms have been present for 2 weeks and indicates a pain score of 3/10. MEDICAL/SURGICAL HISTORY: Carcinoma, oral cavity. Carcinoma, prostatic. Congestive heart fail ure. Kidney cancer. Nephrectomy, right. Hemorrhoidectomy. Prostatectomy. [place] [facility] [place]. . TECHNIQUE: Multiplanar, multisequence examination of the brain was performed without contrast. FINDINGS: Cerebrum: The ventricles and cortical sulci are widened. There is scattered focal and confluent incr eased signal in the periventricular white matter. Are normal for age. No evidence of midline shift, mass lesion, hemorrhage or acute infarction. No extraaxial fluid collections are seen. The pituitar y gland and suprasellar cistern are normal in configuration. White Matter: No significant signal abnormalities are seen in the white matter. Posterior Fossa: The cerebellum and brainstem are intact. The 4th ventricle is midline. The cerebel lopontine angle is unremarkable. The cerebellar tonsils are normal in position. Diffusion Imaging: No focal areas of restricted diffusion are seen. No evidence of acute infarction . Extracranial: The visualized portions of the orbits and paranasal sinuses are unremarkable. CONCLUSION: 1. No acute intracranial abnormality. No abnormalities seen on the diffusion-weighted images to sugg est acute infarction. 2. Age-related atrophy and suspected small vessel ischemic change in the white matter. Electronically signed by: Leoncio Carlos MD 07/15/2018 1:40 PM EST
--- NOTE | 2018-07-15 13:58 | MR ---
EXAM DATE: 07/15/2018 1:51 PM EST AGE/SEX: 77 years / Male INDICATIONS: Weakness. Slurred speech. left facial droop, aphasia. CLINICAL DATA: This is the patient's initial encounter. Patient reports that signs and symptoms have been present for 2 weeks and indicates a pain score of 0/10. MEDICAL/SURGICAL HISTORY: Carcinoma, oral cavity. Carcinoma, prostatic. Congestive heart fail ure. Nephrostomy tube, right. Prostatectomy. Hemorrhoidectomy. COMPARISON: [facility] – [place], CT SOFT TISSUE NECK W CONTRAST, 06/22/2018. . TECHNIQUE: Multiplanar, multisequence MRI examination of the cervical spine was performed without co ntrast. FINDINGS: VERTEBRAE: Normal vertebral body height. Homogeneous marrow signal. ALIGNMENT: Normal. CORD: Normal configuration and signal. POST FOSSA: The cerebellar tonsils are normal in position. Patient's known large tongue mass is part ially imaged on the sagittal images. C2-C3: The thecal sac has a normal configuration. There is no evidence of disc herniation or spinal canal stenosis. The neural foramina are patent bilaterally. C3-C4: Minimal diffuse disc bulge and uncovertebral osteophytes. Minimal bilateral facet arthropathy. No significant neural foraminal or central canal stenosis. C4-C5: Mild diffuse disc bulge with bilateral uncovertebral osteophytes. Mild bilateral facet hypertr ophy. No significant central canal stenosis. Mild right-sided neural foraminal narrowing. C5-C6: Mild disc space narrowing with posterior disc osteophytes effacing the anterior thecal sac wit h slight flattening of the cervical cord but no significant cord signal abnormality. Bilateral facet hypertrophy. No significant neural foraminal stenosis. C6-C7: Moderate disc space narrowing with right eccentric disc osteophyte complex resulting in mild e ffacement of the right anterior lateral recess. Mild right neural foraminal narrowing. C7-T1: No epidural impressions seen. CONCLUSION: 1. Degenerative spondylosis of the lower cervical spine most prominently at C5-6 and C6-7 with moder ate central canal narrowing at C5-6. 2. Mild right-sided neural foraminal narrowing at C4-5 and C6-7 without impingement. Electronically signed by: Kailash Munguia MD 07/15/2018 1:56 PM EST
--- NOTE | 2018-07-15 13:59 | ECG ---
Date Performed: 07/15/2018 Time Performed: 10:28:10 PTAGE: 77 years EKG: Sinus rhythm with frequent PVCs Inferior T wave changes are nonspecific Abnormal ECG Since the PREVIOUS TRACING , no significant change noted PREVIOUS TRACIN07/03/2018 14.27 DOCTOR: Allen Carrera Interpretating Date/Time 07/15/2018 13:57:29
[2018-07-15] MEDS: Montelukast 10 MG Tablet PO SCH (19:37)
--- NOTE | 2018-07-16 00:33 | P.PNADD ---
Addendum to Inpatient Note Reason for Addendum: Additional Documentation Additional information: F/U on patient's complaint of hearing loss that I was paged about at the beginning of my shift at 7 pm. I spoke with his bedside RN and his hearing has spontaneously returned and he is able to hear again.
--- NOTE | 2018-07-16 07:45 | P.PNNEU ---
Subjective Active Medications: Active Medications Acetaminophen (Tylenol) 650 mg PO Q4H PRN PRN Reason: Temp > 100.4/WADE Last Admin: 07/15/18 00:58 Dose: 650 mg Al Hydroxide/Mg Hydroxide (Milk Of Magnesia Liq) 30 ml PO Q12H PRN PRN Reason: Mild Constipation Apixaban (Eliquis) 5 mg PO BID REPLACED BY [facility] Last Admin: 07/15/18 22:06 Dose: 5 mg Artificial Tears (Tears Naturale Opth Drops) 1 drop EACH EYE Q4H PRN PRN Reason: DISCOMFORT Aspirin (Aspirin Chew) 81 mg PO DAILY REPLACED BY [facility] Last Admin: 07/15/18 11:49 Dose: 81 mg Bisacodyl (Dulcolax Supp) 10 mg RECTAL DAILY PRN PRN Reason: SEVERE CONSITIPATION Diltiazem HCl (Cardizem Cd 24hr) 240 mg PO DAILY REPLACED BY [facility] Last Admin: 07/15/18 11:49 Dose: 240 mg Lactulose (Lactulose Liq) 30 ml PO DAILY PRN PRN Reason: SEVERE CONSITIPATION Metoclopramide HCl (Reglan) 10 mg PO QID REPLACED BY [facility] Last Admin: 07/15/18 22:06 Dose: 10 mg Midodrine (Proamatine) 2.5 mg PO TID REPLACED BY [facility] Last Admin: 07/13/18 10:02 Dose: 2.5 mg Miscellaneous (Pill Splitter) 1 each OTHER [facility] Montelukast Sodium (Singulair) 10 mg PO QPM REPLACED BY [facility] Last Admin: 07/15/18 19:37 Dose: Not Given Multi-Ingredient Mouthwash/Gargle (Magic Mouthwash Adult Liq) 10 ml SWISH-SWAL QID REPLACED BY [facility] Last Admin: 07/15/18 22:06 Dose: 10 ml Ondansetron HCl (Zofran Inj) 4 mg IV.PUSH Q6H PRN PRN Reason: NAUSEA OR VOMITING Oxycodone HCl (Roxicodone) 7.5 mg PO Q8H REPLACED BY [facility] Last Admin: 07/16/18 04:46 Dose: Not Given Paroxetine HCl (Paxil) 20 mg PO DAILY REPLACED BY [facility] Last Admin: 07/15/18 11:49 Dose: 20 mg Potassium Chloride (K-Dur) 20 meq PO DAILY REPLACED BY [facility] Last Admin: 07/15/18 11:49 Dose: 20 meq Sennosides (Senokot) 17.2 mg PO Q12H PRN PRN Reason: Moderate Constipation Allergies/Adverse Reactions: Allergies Allergy/AdvReac Type Severity Reaction Status Date / Time colchicine Allergy Severe Headache Verified 06/22/18 13:28 labetalol Allergy Intermediate Hives Verified 06/22/18 13:28 hydrochlorothiazide AdvReac Intermediate Diarrhea Verified 06/22/18 13:28 Physical Exam Vital signs: Vital Signs 07/15/18 08:00 07/15/18 10:00 07/15/18 11:00 Temperature 97.4 F L Pulse Rate 70 70 72 Respiratory Rate 18 Blood Pressure 152/86 H Pulse Oximetry 98 07/15/18 12:00 07/15/18 14:00 07/15/18 15:00 Temperature 97.4 F L Pulse Rate 78 68 74 Respiratory Rate 18 Blood Pressure 124/79 Pulse Oximetry 99 07/15/18 16:00 07/15/18 17:00 07/15/18 17:25 Temperature 98.8 F Pulse Rate 64 68 72 Respiratory Rate 18 Blood Pressure 155/99 H Pulse Oximetry 98 07/15/18 19:00 07/15/18 20:00 07/15/18 21:00 Temperature 98.4 F Pulse Rate 68 66 60 Respiratory Rate 16 Blood Pressure 129/80 Pulse Oximetry 95 07/15/18 22:00 07/15/18 23:00 07/15/18 23:32 Temperature 98.5 F Pulse Rate 66 67 66 Respiratory Rate 16 Blood Pressure 135/79 Pulse Oximetry 96 07/16/18 00:00 07/16/18 01:00 07/16/18 02:00 Temperature Pulse Rate 65 61 64 Respiratory Rate Blood Pressure Pulse Oximetry 07/16/18 03:00 07/16/18 04:00 07/16/18 05:00 Temperature 97.9 F Pulse Rate 60 60 61 Respiratory Rate 16 Blood Pressure 149/87 H Pulse Oximetry 94 L 07/16/18 06:00 07/16/18 07:39 07/16/18 07:42 Temperature 97.7 F Pulse Rate 62 63 65 Respiratory Rate 16 Blood Pressure 145/88 H Pulse Oximetry 97 Intake & Output 07/15/18 07/16/18 07/16/18 18:59 06:59 18:59 Intake Total 240 / 240 Output Total 200 / 200 Balance 40 / 40 Weight 80.5 kg Intake: Oral 240 / 240 Output: Urine 200 / 200 Other: # Voids 3 Date of Last Bowel Movement 07/13/18 07/15/18 # Bowel Movements 1 1 Narrative: awake alert moves all well x the left delt is weak not finger ext nor tricep Objective Laboratory Results - last 24 hr 07/15/18 07/15/18 07/15/18 08:37 08:45 08:45 WBC 6.9 RBC 3.00 L Hgb 10.3 L POC Hgb (Calc) 9.5 L Hct 28.6 L POC Hct 28.0 L MCV 95.5 MCH 34.2 H MCHC 35.9 RDW 16.0 Plt Count 297 D MPV 6.8 L Neut % (Auto) 65.8 Lymph % (Auto) 24.7 [place] % (Auto) 9.1 H Eos % (Auto) 0.0 Baso % (Auto) 0.4 Neut # (Auto) 4.5 Lymph # (Auto) 1.7 [place] # (Auto) 0.6 Eos # (Auto) 0.0 Baso # (Auto) 0.0 WBC Differential . Differential Comment Auto diff final PT INR APTT Fibrinogen POC Sodium 140 POC Potassium 3.5 L POC Chloride 97 L POC BUN 11 POC Creatinine 0.8 POC Glucose 123 H 123 H Total Creatine Kinase Troponin I Blood Type Antibody Screen 07/15/18 07/15/18 07/15/18 08:45 08:45 08:45 WBC RBC Hgb POC Hgb (Calc) Hct POC Hct MCV MCH MCHC RDW Plt Count MPV Neut % (Auto) Lymph % (Auto) [place] % (Auto) Eos % (Auto) Baso % (Auto) Neut # (Auto) Lymph # (Auto) [place] # (Auto) Eos # (Auto) Baso # (Auto) WBC Differential Differential Comment PT 11.2 INR 1.1 APTT 30.2 Fibrinogen 446 H POC Sodium POC Potassium POC Chloride POC BUN POC Creatinine POC Glucose Total Creatine Kinase 24 L Troponin I Less than 0.02 L Blood Type A Negative Antibody Screen Negative Review/Management - Review/Management Plan: imp i think the left delt is weak or shoulder damaged causing the appearance of weakness lue no old or new cva on mri c spine mri neg too eeg neg i will sign off never had cva/tia here just misunderstanding of his baseline by nursing
[2018-07-16] MEDS: dilTIAZem CD 240 MG Capsule PO SCH (09:03)
[2018-07-16] MEDS: Nystatin/Diphenhydramine/Lidocaine Mouthwash (Adult) 120 ML Botttle SWISH-SWAL SCH ×4 (09:04→20:23)
[2018-07-16] MEDS: Metoclopramide 10 MG Tablet PO SCH ×4 (09:04→20:23)
--- NOTE | 2018-07-16 12:58 | P.PN ---
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 Stable and no complaint this morning. Afebrile. July 15, 2018-patient seen and examined, stroke alert was called earlier .head CT unremarkable brain MRI. During my assessment, patient was stable and following commands. July 16, 2018-patient seen and examined, when I walked into the room patient stated that he could not hear however after assessing his ear patient was able to follow commands and have a normal conversation with me, pointing to the fact that his hearing has returned. Physical Exam Vital signs: Vital Signs 07/15/18 14:00 07/15/18 15:00 07/15/18 16:00 Temperature Pulse Rate 68 74 64 Respiratory Rate Blood Pressure Pulse Oximetry 07/15/18 17:00 07/15/18 17:25 07/15/18 19:00 Temperature 98.8 F Pulse Rate 68 72 68 Respiratory Rate 18 Blood Pressure 155/99 H Pulse Oximetry 98 07/15/18 20:00 07/15/18 21:00 07/15/18 22:00 Temperature 98.4 F Pulse Rate 66 60 66 Respiratory Rate 16 Blood Pressure 129/80 Pulse Oximetry 95 07/15/18 23:00 07/15/18 23:32 07/16/18 00:00 Temperature 98.5 F Pulse Rate 67 66 65 Respiratory Rate 16 Blood Pressure 135/79 Pulse Oximetry 96 07/16/18 01:00 07/16/18 02:00 07/16/18 03:00 Temperature Pulse Rate 61 64 60 Respiratory Rate Blood Pressure Pulse Oximetry 07/16/18 04:00 07/16/18 05:00 07/16/18 06:00 Temperature 97.9 F Pulse Rate 60 61 62 Respiratory Rate 16 Blood Pressure 149/87 H Pulse Oximetry 94 L 07/16/18 07:39 07/16/18 07:42 Temperature 97.7 F Pulse Rate 63 65 Respiratory Rate 16 Blood Pressure 145/88 H Pulse Oximetry 97 Intake & Output 07/15/18 07/16/18 07/16/18 18:59 06:59 18:59 Intake Total 240 / 240 Output Total 200 / 200 Balance 40 / 40 Weight 80.5 kg Intake: Oral 240 / 240 Output: Urine 200 / 200 Other: # Voids 3 Date of Last Bowel Movement 07/13/18 07/15/18 # Bowel Movements 1 1 Narrative: GENERAL: NAD SKIN: Warm and dry. HEAD: Normocephalic. EYES: No scleral icterus. No injection or drainage. NECK: Supple, trachea midline. No JVD or lymphadenopathy. CARDIOVASCULAR: Regular rate and rhythm without murmurs, gallops, or rubs. RESPIRATORY: Breath sounds equal bilaterally. No accessory muscle use. GASTROINTESTINAL: Abdomen soft, non-tender, nondistended. MUSCULOSKELETAL: No cyanosis, or edema. BACK: Nontender without obvious deformity. No CVA tenderness. Results - Labs CBC & Chem 7: 07/15/18 08:45 07/10/18 05:25 - Imaging Impressions Cervical Spine MRI 07/15/18 00:00 CONCLUSION: 1. Degenerative spondylosis of the lower cervical spine most prominently at C5- 6 and C6-7 with moderate central canal narrowing at C5-6. 2. Mild right-sided neural foraminal narrowing at C4-5 and C6-7 without impingement. Head MRI 07/15/18 00:00 CONCLUSION: 1. No acute intracranial abnormality. No abnormalities seen on the diffusion- weighted images to suggest acute infarction. 2. Age-related atrophy and suspected small vessel ischemic change in the white matter. Assessment and Plan - Plan 77-year-old man with Stroke alert called (07/15/18)TIA Head CT negative Appreciate input from Neurology who felt that it wasn't a CVA or TIA case Temporary hearing loss? Malingering as it appears, because patient able to recover from the temporary hearing loss and follow commands during my exam Syncope-resolved -d/c Midodrine and Florinef. BP improved -PT. -Neuro checks. Urinary tract infection UA indicative of an infection. Urine culture with no growth therefore s/p antibiotics. Paroxysmal atrial fibrillation -continue home Diltiazem and Eliquis. Hypokalemia -Resolved Squamous cell cancer of tongue -continue radiation as scheduled. -patient to follow up with oncology outpatient for further management. -Palliative care consult requested for goals of care and pain management. -Oxycodone Q8H scheduled Anemia Stable. -follow CBC as needed. Back pain -oxycodone scheduled. -physical therapy. Depression -Continue paroxetine 20 mg p.o. daily. Delirium-Improved -Appreciate input from psychiatry DVT ppx: Eliquis
[2018-07-16] MEDS: Montelukast 10 MG Tablet PO SCH (17:15)
--- NOTE | 2018-07-16 17:47 | P.PNPAL ---
Reason for Visit Reason for visit: a. To assist with evaluation and management of symptoms including: pain, depression b. To assist medical decision maker(s) with: better understanding of current medical conditions; weighing benefits/burdens of medical treatment options; making medical treatment decisions. Subjective Subjective/Interval History: Follow up visit for symptom management and clarification of medical treatment goal. Patient seen and assessed in room 243. No family at bedside. Patient is awake, answering questions and following simple commands. Denies pain on examination. Oxycodone 7.5mg PO is scheduled q8 hours; patient was previously receiving 7.5mg oxycodone q6 hours at home. Stroke alert called 07/15/2018. CT head was negative; age-related atrophy and suspected small vessel ischemic change was noted in the white matter. Neurology following. No recent lab work available. Patient has received 7 out of the 10 planned radiation treatments with the last treatment sometime this week. Patient's daughter has indicated she plans to bring her father home when he is medically stable. A healthcare surrogate designation form was completed on 04/30/2018 designating patient's grandson (Damien Leo) as the primary healthcare surrogate decision- maker. Daughter, Jillian Francis, is the alternate. Palliative care attempted to contact both Damien and Jillian at the listed numbers. Unable to leave a message for the patient's grandson, but palliative care contact information was left on a voicemail for Jillian Francis. Family/Friend Interactions: See interval history Advance Directives Advance Directives Date on File: 04/30/18 Health Care Surrogate Name and Number: Damien Leo (grandson) [phone] Objective Vital Signs: Vital Signs 07/15/18 17:25 07/15/18 19:00 07/15/18 20:00 Temperature 98.8 F 98.4 F Pulse Rate 72 68 66 Respiratory Rate 18 16 Blood Pressure 155/99 H 129/80 Pulse Oximetry 98 95 07/15/18 21:00 07/15/18 22:00 07/15/18 23:00 Temperature Pulse Rate 60 66 67 Respiratory Rate Blood Pressure Pulse Oximetry 07/15/18 23:32 07/16/18 00:00 07/16/18 01:00 Temperature 98.5 F Pulse Rate 66 65 61 Respiratory Rate 16 Blood Pressure 135/79 Pulse Oximetry 96 07/16/18 02:00 07/16/18 03:00 07/16/18 04:00 Temperature 97.9 F Pulse Rate 64 60 60 Respiratory Rate 16 Blood Pressure 149/87 H Pulse Oximetry 94 L 07/16/18 05:00 07/16/18 06:00 07/16/18 07:39 Temperature 97.7 F Pulse Rate 61 62 63 Respiratory Rate 16 Blood Pressure 145/88 H Pulse Oximetry 97 07/16/18 07:42 07/16/18 12:00 07/16/18 13:45 Temperature 98.8 F Pulse Rate 65 74 70 Respiratory Rate 16 16 Blood Pressure 147/88 H Pulse Oximetry 97 07/16/18 15:45 Temperature 97.1 F L Pulse Rate 61 Respiratory Rate 16 Blood Pressure 142/91 H Pulse Oximetry 96 Intake & Output 07/15/18 07/16/18 07/16/18 18:59 06:59 18:59 Intake Total 240 / 240 Output Total 200 / 200 Balance 40 / 40 Weight 80.5 kg Intake: Oral 240 / 240 Output: Urine 200 / 200 Other: # Voids 3 Date of Last Bowel Movement 07/13/18 07/15/18 # Bowel Movements 1 1 Physical Exam: CONSTITUTIONAL/GENERAL: This is an adequately nourished patient, in no apparent distress. TUBES/LINES/DRAINS: PIV SKIN: No jaundice, rashes, or lesions. Ecchymoses on upper extremities. No wounds seen anteriorly. Skin temperature appropriate. Not diaphoretic. HEAD: Atraumatic. Normocephalic. EYES: Pupils equal and round and reactive. Extraocular motions intact. No scleral icterus. No injection or drainage. Fundi not examined. ENT: Hearing grossly normal. Nose without bleeding or purulent drainage. Oral mucosa moist NECK: Trachea midline. Supple, nontender. No palpable thyroid enlargement or nodularity. CARDIOVASCULAR: Regular rate and rhythm without murmurs, gallops, or rubs. No JVD. Peripheral pulses symmetric. RESPIRATORY/CHEST: Symmetric, unlabored respirations. Clear to auscultation. Breath sounds equal bilaterally. No wheezes, rales, or rhonchi. GASTROINTESTINAL: Abdomen soft, non-tender, nondistended. No guarding. Bowel sounds present. GENITOURINARY: Without palpable bladder distension. Tesfaye catheter in place. MUSCULOSKELETAL: Extremities without clubbing, cyanosis, or edema. No mottling or clubbing. NEUROLOGICAL: Awake and alert. Answers question with brief answer PSYCHIATRIC: No agitation/anxiety No apparent hallucinations or other psychotic thought process. Diagnostic Tests Laboratory: Laboratory Results - last 72 hr 07/15/18 07/15/18 07/15/18 08:37 08:45 08:45 WBC 6.9 RBC 3.00 L Hgb 10.3 L POC Hgb (Calc) 9.5 L Hct 28.6 L POC Hct 28.0 L MCV 95.5 MCH 34.2 H MCHC 35.9 RDW 16.0 Plt Count 297 D MPV 6.8 L Neut % (Auto) 65.8 Lymph % (Auto) 24.7 [place] % (Auto) 9.1 H Eos % (Auto) 0.0 Baso % (Auto) 0.4 Neut # (Auto) 4.5 Lymph # (Auto) 1.7 [place] # (Auto) 0.6 Eos # (Auto) 0.0 Baso # (Auto) 0.0 WBC Differential . Differential Comment Auto diff final PT INR APTT Fibrinogen POC Sodium 140 POC Potassium 3.5 L POC Chloride 97 L POC BUN 11 POC Creatinine 0.8 POC Glucose 123 H 123 H Total Creatine Kinase Troponin I Blood Type Antibody Screen 07/15/18 07/15/18 07/15/18 08:45 08:45 08:45 WBC RBC Hgb POC Hgb (Calc) Hct POC Hct MCV MCH MCHC RDW Plt Count MPV Neut % (Auto) Lymph % (Auto) [place] % (Auto) Eos % (Auto) Baso % (Auto) Neut # (Auto) Lymph # (Auto) [place] # (Auto) Eos # (Auto) Baso # (Auto) WBC Differential Differential Comment PT 11.2 INR 1.1 APTT 30.2 Fibrinogen 446 H POC Sodium POC Potassium POC Chloride POC BUN POC Creatinine POC Glucose Total Creatine Kinase 24 L Troponin I Less than 0.02 L Blood Type A Negative Antibody Screen Negative Result Diagrams: 07/15/18 08:45 07/10/18 05:25 Microbiology: Microbiology 07/03/18 15:30 Catheterized Urine Urine Culture - Final No growth in 48 hours Imaging: Chest X-Ray 07/03/18 14:38 CONCLUSION: Negative examination. Cervical Spine MRI 07/15/18 00:00 CONCLUSION: 1. Degenerative spondylosis of the lower cervical spine most prominently at C5- 6 and C6-7 with moderate central canal narrowing at C5-6. 2. Mild right-sided neural foraminal narrowing at C4-5 and C6-7 without impingement. Head MRI 07/15/18 00:00 CONCLUSION: 1. No acute intracranial abnormality. No abnormalities seen on the diffusion- weighted images to suggest acute infarction. 2. Age-related atrophy and suspected small vessel ischemic change in the white matter. Head CT 07/15/18 08:49 CONCLUSION: 1. No acute areas of hemorrhage or mass effect are seen. 2. Atrophy. 3. Old lacunar infarct. Report was called by by Dr. Carlos to Dr. Serrano at 9:06 AM.] Assessment and Plan - Disease Oriented Problem List (1) Syncope due to autonomic failure Comment: = Admitted to the medical telemetry floor = Serial cardiac enzymes- negative = Continue Midrin = Out of bed with assist only (2) UTI (urinary tract infection) Comment: = Urine culture pending, previous UA consistent with E. coli UTI sensitive to Rocephin = Continue Rocephin 1 g IV every 24 hours (3) Hypokalemia Comment: = Potassium 2.9 in the ED; repleted with 40 mEq supplemental potassium PO and 10 mEq IV (4) Dehydration (5) Paroxysmal atrial fibrillation with rapid ventricular response Comment: = Currently undergoing radiation treatments = Continue home Diltiazem and Eliquis (6) Squamous cell cancer of tongue Comment: = Follow-up with oncology outpatient (7) Chronic kidney disease (CKD) - Symptom Scale (1) Pain 0-10 Scale: 0 (2) Depression 0-10 Scale: Unable to quantify Pertinent Non-Medical Issues: Psychosocial: Patient was born and raised in [facility]; 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 He is a ; his of 57 years dies last year from breast cancer. He has 2 adult daughters and 4 grandchildren. Patient has been depressed since his ; denies suicidal ideation. He had a brother who committed suicide. Spiritual: [employer] Legal: Healthcare surrogate designation form was completed on 04/30/2018 designating grandson (Damien Garcia) as the primary healthcare surrogate decision-maker. Daughter (Jillian Francis) is designated as the alternate HCS. Ethical issues impacting care: No known ethical issues impacting care at this time. 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 He is having orthostatic hypotension , dysphagia, odynophagia, decreased PO intakewith associated weight loss. Patient undergoing concurrent chemo with weekly cisplatin. Prognosis guarded. Code Status: Full Code Plan: * FULL CODE * A healthcare surrogate designation form was completed on 04/30/2018 designating patient's grandson (Damien Leo) as the primary healthcare surrogate decision-maker. Daughter, Jillian Francis, is the alternate. * Discussed patient with RN (Ariella). * Palliative care attempted to contact both Damien and Jillian at the listed numbers. Unable to leave a message for the patient's grandson, but palliative care contact information was left on a voicemail for Jillian Francis. * Symptom management: Pain: Multifactoral, acute and chronic. He admits to discomfort in his throat and lower back but does not rate or describe his pain. His family states is on scheduled oxycodone at home. Denies pain on examination. Oxycodone 7.5mg PO is scheduled q8 hours; patient was previously receiving 7.5mg oxycodone q6 hours at home. Depression: Situational. Pt. lost his last year at this time. Psychiatry consulted for capacity; patient currently does not have capacity for medical decision-making. Previously on fluoxetine 20mg daily-restarted 07/09/18 * Palliative care will continue to follow this patient throughout his hospitalization to establish trust, assist with symptom management and clarification of medical treatment goals. Attestation Attestation: To help prompt me to consider important information that might be impacting today's encounter and assessment, information from prior notes written by myself or my colleagues may have been "brought forward" into today's note. My signature on this note, however, is an attestation that I personally performed the exam, history, and/or decision-making noted today, and, unless otherwise indicated, the interactions with patient, family, and staff as well as the review of records all occurred today. I also attest that the listed assessment and stated plan reflect my best clinical judgment today based on the combination of historical information, prior notes, and today's exam/ interactions. When time spent is documented, it refers only to time spent today by the signer, or if indicated, combined time spent today by collaborating physician/nurse practitioner.
--- NOTE | 2018-07-17 11:08 | P.PN ---
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 No acute event overnight. Physical Exam Vital signs: Vital Signs 07/16/18 12:00 07/16/18 13:45 07/16/18 15:45 Temperature 98.8 F 97.1 F L Pulse Rate 74 70 61 Respiratory Rate 16 16 16 Blood Pressure 147/88 H 142/91 H Pulse Oximetry 97 96 07/16/18 20:00 07/17/18 00:00 07/17/18 04:00 Temperature 98.4 F 98.1 F 98.6 F Pulse Rate 64 63 72 Respiratory Rate 18 16 16 Blood Pressure 132/71 146/76 H 148/93 H Pulse Oximetry 98 98 96 07/17/18 08:00 Temperature Pulse Rate 63 Respiratory Rate 18 Blood Pressure 141/91 H Pulse Oximetry 96 Intake & Output 07/16/18 07/17/18 07/17/18 18:59 06:59 18:59 Intake Total 480 / 480 480 / 480 Output Total 500 / 500 Balance -20 / -20 480 / 480 Weight 80.4 kg Intake: Oral 480 / 480 480 / 480 Output: Urine 500 / 500 Other: # Voids 5 Date of Last Bowel Movement 07/16/18 07/17/18 # Bowel Movements 2 # Incontinent Bowel Movements 2 Narrative: GENERAL: NAD SKIN: Warm and dry. HEAD: Normocephalic. EYES: No scleral icterus. No injection or drainage. NECK: Supple, trachea midline. No JVD or lymphadenopathy. CARDIOVASCULAR: Regular rate and rhythm without murmurs, gallops, or rubs. RESPIRATORY: Breath sounds equal bilaterally. No accessory muscle use. GASTROINTESTINAL: Abdomen soft, non-tender, nondistended. MUSCULOSKELETAL: No cyanosis, or edema. BACK: Nontender without obvious deformity. No CVA tenderness. Results - Labs CBC & Chem 7: 07/15/18 08:45 07/10/18 05:25 Assessment and Plan - Plan 77-year-old man with Stroke alert called (07/15/18)TIA Head CT negative Appreciate input from Neurology who felt that it wasn't a CVA or TIA case Temporary hearing loss? Malingering as it appears, because patient able to recover from the temporary hearing loss and follow commands during my exam on 07/16/18 Syncope-resolved -d/c Midodrine and Florinef. BP improved, however patient still with orthostatic hypotension -PT. -Neuro checks. Urinary tract infection UA indicative of an infection. Urine culture with no growth therefore s/p antibiotics. Paroxysmal atrial fibrillation -continue home Diltiazem and Eliquis. Hypokalemia -Resolved Squamous cell cancer of tongue -continue radiation as scheduled. -patient to follow up with oncology outpatient for further management. -Palliative care consult requested for goals of care and pain management. -Oxycodone Q8H scheduled Anemia Stable. -follow CBC as needed. Back pain -oxycodone scheduled. -physical therapy. Depression -Continue paroxetine 20 mg p.o. daily. Delirium-Improved -Appreciate input from psychiatry DVT ppx: Noy Transfer to [facility]
[2018-07-17] MEDS ORDERED: Potassium Chloride 25 MEQ Effervescent Tablet PO ONE (12:00)
[2018-07-17] MEDS: dilTIAZem CD 240 MG Capsule PO SCH (17:29)
[2018-07-17] MEDS: Nystatin/Diphenhydramine/Lidocaine Mouthwash (Adult) 120 ML Botttle SWISH-SWAL SCH ×4 (17:30→21:39)
[2018-07-17] MEDS: Metoclopramide 10 MG Tablet PO SCH ×4 (17:30→21:39)
[2018-07-17] MEDS: Montelukast 10 MG Tablet PO SCH (17:45)
[2018-07-18 07:45] LABS: Baso % (Auto) 0.2 % (0.0-2.0); Hematocrit 29.8 % (39.0-51.0); Hemoglobin 10.3 gm/dL (13.0-17.0); Lymph # (Auto) 1.9 th/mm3 (1.0-4.8); Lymph % (Auto) 25.8 % (9.0-44.0); Mean Corpuscular HGB Conc 34.5 % (32.0-36.0); Mean Corpuscular Hemoglobin 33.2 pg (27.0-34.0); Mean Corpuscular Volume 96.3 fL (80.0-100.0); Mean Platelet Volume 6.5 fL (7.0-11.0); Mono # (Auto) 0.7 th/mm3 (0.0-0.9); Mono % (Auto) 9.7 % (0.0-8.0); Neut # (Auto) 4.8 th/mm3 (1.8-7.7); Neut % (Auto) 64.3 % (16.0-70.0); Platelet Count 308 th/mm3 (150-450); Red Blood Count 3.09 mil/mm3 (4.50-5.90); White Blood Count 7.5 th/mm3 (4.0-11.0)
[2018-07-18 08:06] LABS: Alanine Aminotransferase 17 U/L (12-78); Albumin 2.3 g/dL (3.4-5.0); Anion Gap 3 meq/L (5-15); Aspartate Aminotransferase 12 U/L (15-37); Blood Urea Nitrogen 14 mg/dL (7-18); Calcium 8.3 mg/dL (8.5-10.1); Carbon Dioxide 33.6 meq/L (21.0-32.0); Chloride 105 meq/L (98-107); Glomerular Filtration Rate 77 mL/min (>89); Glucose,Random 114 mg/dL (74-106); Sodium 142 meq/L (136-145)
[2018-07-18 08:08] LABS: Alkaline Phosphatase 110 U/L (45-117); Total Protein 5.9 g/dL (6.4-8.2)
[2018-07-18] MEDS: Metoclopramide 10 MG Tablet PO SCH ×4 (08:47→21:33)
[2018-07-18] MEDS: dilTIAZem CD 240 MG Capsule PO SCH (08:47)
[2018-07-18] MEDS: Nystatin/Diphenhydramine/Lidocaine Mouthwash (Adult) 120 ML Botttle SWISH-SWAL SCH ×4 (08:53→21:38)
--- NOTE | 2018-07-18 15:22 | P.PNIM ---
Subjective Interval history: The pt was having trouble with his TV. He wanted to know if he could go home soon. Otherwise he had no acute complaints. Discussed with nursing. Physical Exam Vital signs: Vital Signs 07/17/18 16:00 07/17/18 18:20 07/17/18 20:00 Temperature 98.4 F 98.5 F 97.9 F Pulse Rate 102 H 100 H 66 Respiratory Rate 18 18 17 Blood Pressure 122/82 124/78 150/86 H Pulse Oximetry 98 98 96 07/18/18 00:00 07/18/18 04:00 07/18/18 08:00 Temperature 97.2 F L 97.8 F 98.2 F Pulse Rate 62 63 68 Respiratory Rate 16 16 18 Blood Pressure 113/73 167/89 H 171/99 H Pulse Oximetry 95 94 L 97 07/18/18 10:49 07/18/18 12:00 Temperature 98.4 F Pulse Rate 70 65 Respiratory Rate 18 Blood Pressure 150/84 H 155/77 H Pulse Oximetry 96 96 Intake & Output 07/17/18 07/18/18 07/18/18 18:59 06:59 18:59 Intake Total 120 / 120 240 / 240 Balance 120 / 120 240 / 240 Weight 80.9 kg Intake: Oral 120 / 120 240 / 240 Other: # Voids 3 4 Date of Last Bowel Movement 07/17/18 07/18/18 # Bowel Movements 2 1 Narrative: GENERAL: NAD SKIN: Warm and dry. HEAD: Normocephalic. EYES: No scleral icterus. No injection or drainage. NECK: Supple, trachea midline. No JVD or lymphadenopathy. CARDIOVASCULAR: Regular rate and rhythm without murmurs, gallops, or rubs. RESPIRATORY: Breath sounds equal bilaterally. No accessory muscle use. GASTROINTESTINAL: Abdomen soft, non-tender, nondistended. MUSCULOSKELETAL: No cyanosis, or edema. BACK: Nontender without obvious deformity. No CVA tenderness. Results - Labs CBC & Chem 7: 07/18/18 06:56 07/18/18 06:56 Laboratory Results - last 24 hr 07/18/18 07/18/18 06:56 06:56 WBC 7.5 RBC 3.09 L Hgb 10.3 L Hct 29.8 L MCV 96.3 MCH 33.2 MCHC 34.5 RDW 16.0 Plt Count 308 MPV 6.5 L Neut % (Auto) 64.3 Lymph % (Auto) 25.8 Bradley % (Auto) 9.7 H Eos % (Auto) 0.0 Baso % (Auto) 0.2 Neut # (Auto) 4.8 Lymph # (Auto) 1.9 Bradley # (Auto) 0.7 Eos # (Auto) 0.0 Baso # (Auto) 0.0 WBC Differential . Differential Comment Auto diff final Sodium 142 Potassium 4.0 Chloride 105 Carbon Dioxide 33.6 H Anion Gap 3 L BUN 14 Creatinine 0.95 Estimated GFR 77 L Random Glucose 114 H Calcium 8.3 L Total Bilirubin 0.4 AST 12 L ALT 17 Alkaline Phosphatase 110 Total Protein 5.9 L Albumin 2.3 L Assessment and Plan - Plan 77-year-old man with Stroke alert called (07/15/18) Head CT negative Appreciate input from Neurology who felt that it wasn't a CVA or TIA. -neuro checks. Syncope-resolved -d/c Midodrine and Florinef. BP improved, however patient still with orthostatic hypotension. -PT. -Neuro checks. Urinary tract infection UA indicative of an infection. Urine culture with no growth therefore s/p antibiotics. Paroxysmal atrial fibrillation -continue home Diltiazem and Eliquis. 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 -patient to follow up with oncology outpatient for further management. -Palliative care consult requested for goals of care and pain management. -Oxycodone Q8H scheduled Anemia Stable. -follow CBC as needed. Back pain -oxycodone scheduled. -physical therapy. Depression Stable at this time. -Continue paroxetine 20 mg p.o. daily. Delirium-Improved -Appreciate input from psychiatry DVT ppx: Eliquis Discharge Planning: The patient's family would like the patient to stay here for his remaining radiation treatments. Follow-up with case management for discharge options
[2018-07-18] MEDS: Montelukast 10 MG Tablet PO SCH (18:18)
[2018-07-19] MEDS: Nystatin/Diphenhydramine/Lidocaine Mouthwash (Adult) 120 ML Botttle SWISH-SWAL SCH ×4 (09:00→22:00)
[2018-07-19] MEDS: dilTIAZem CD 240 MG Capsule PO SCH (09:00)
[2018-07-19] MEDS: Metoclopramide 10 MG Tablet PO SCH ×4 (09:00→21:54)
[2018-07-19] MEDS ORDERED: hydrALAZINE 25 MG Tablet PO PRN (16:14)
--- NOTE | 2018-07-19 16:15 | P.PNIM ---
Subjective Interval history: The patient was resting comfortably in bed. Discussed with the patient's daughter, who stated that she would like the patient to remain here for the completion of treatment. She then would pursue the possibility of home hospice services. Physical Exam Vital signs: Vital Signs 07/18/18 20:00 07/18/18 20:42 07/18/18 23:45 Temperature 97.7 F 98.1 F Pulse Rate 64 66 18 L Respiratory Rate 16 18 Blood Pressure 133/66 145/86 H Pulse Oximetry 94 L 93 L 07/19/18 00:00 07/19/18 04:00 07/19/18 08:00 Temperature 98.1 F 97.8 F Pulse Rate 71 63 75 Respiratory Rate 17 16 Blood Pressure 166/89 H 160/100 H Pulse Oximetry 92 L 94 L 07/19/18 12:00 Temperature 98.6 F Pulse Rate 61 Respiratory Rate 16 Blood Pressure 187/104 H Pulse Oximetry 96 Intake & Output 07/18/18 07/19/18 07/19/18 18:59 06:59 18:59 Intake Total 320 / 320 0 / 0 Balance 320 / 320 0 / 0 Weight 81.2 kg Intake: Oral 320 / 320 0 / 0 Other: # Urine Diapers 4 3 Date of Last Bowel Movement 07/18/18 07/19/18 07/19/18 # Bowel Movements 1 2 Narrative: GENERAL: NAD SKIN: Warm and dry. HEAD: Normocephalic. EYES: No scleral icterus. No injection or drainage. NECK: Supple, trachea midline. No JVD or lymphadenopathy. CARDIOVASCULAR: Regular rate and rhythm without murmurs, gallops, or rubs. RESPIRATORY: Breath sounds equal bilaterally. No accessory muscle use. GASTROINTESTINAL: Abdomen soft, non-tender, nondistended. MUSCULOSKELETAL: No cyanosis, or edema. BACK: Nontender without obvious deformity. No CVA tenderness. Results - Labs CBC & Chem 7: 07/18/18 06:56 07/18/18 06:56 Assessment and Plan - Plan 77-year-old man with Stroke alert called (07/15/18) Head CT negative Appreciate input from Neurology who felt that it wasn't a CVA or TIA. -neuro checks. Syncope/Orthostatic hypotension -d/c Midodrine and Florinef. BP improved, however patient still with orthostatic hypotension. -PT. -Neuro checks. HTN Blood pressure fluctuates widely. -continue diltiazem. -hydralazine as needed. Urinary tract infection UA indicative of an infection. Urine culture with no growth therefore s/p antibiotics. Paroxysmal atrial fibrillation Rate controlled. -continue home Diltiazem and Eliquis. 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 Daughter would like to keep patient in the hospital for the duration of treatment. -patient to follow up with oncology outpatient for further management. -Palliative care consult requested for goals of care and pain management. -Oxycodone Q8H scheduled Anemia Stable. -follow CBC as needed. Back pain -oxycodone scheduled. -physical therapy. Depression Stable at this time. -Continue paroxetine 20 mg p.o. daily. Delirium-Improved -Appreciate input from psychiatry DVT ppx: Noy Discharge Planning: The patient's family would like the patient to stay here for his remaining radiation treatments. Follow-up with case management for discharge options
[2018-07-19] MEDS: Montelukast 10 MG Tablet PO SCH (17:31)
[2018-07-19] MEDS ORDERED: Influenza (Quadrivalent) Vaccine 0.5 ML Syringe IM ONE (19:00)
[2018-07-20] MEDS: Metoclopramide 10 MG Tablet PO SCH ×4 (08:36→22:54)
[2018-07-20] MEDS: Nystatin/Diphenhydramine/Lidocaine Mouthwash (Adult) 120 ML Botttle SWISH-SWAL SCH ×4 (08:37→22:58)
[2018-07-20] MEDS: dilTIAZem CD 240 MG Capsule PO SCH (08:37)
--- NOTE | 2018-07-20 14:05 | P.PNIM ---
Subjective Interval history: The pt was resting in bed. He had radiation this morning. He had no acute complaints. He wanted to know if his daughter would be stopping by. Physical Exam Vital signs: Vital Signs 07/19/18 16:00 07/19/18 20:00 07/19/18 23:50 Temperature 98.7 F 98 F Pulse Rate 57 L 59 L 59 L Respiratory Rate 14 17 Blood Pressure 117/69 147/87 H Pulse Oximetry 96 96 07/20/18 00:00 07/20/18 04:00 07/20/18 08:00 Temperature 98.3 F 97.7 F 97.9 F Pulse Rate 61 65 68 Respiratory Rate 17 17 17 Blood Pressure 168/89 H 163/87 H 154/91 H Pulse Oximetry 93 L 96 95 Intake & Output 07/19/18 07/20/18 07/20/18 18:59 06:59 18:59 Intake Total 240 / 240 240 / 240 Output Total 225 / 225 500 / 500 Balance 15 / 15 -260 / -260 Weight 80.8 kg Intake: Oral 240 / 240 240 / 240 Output: Urine 225 / 225 500 / 500 Other: # Incontinent Voids 3 Date of Last Bowel Movement 07/19/18 # Bowel Movements 3 1 Narrative: GENERAL: NAD SKIN: Warm and dry. HEAD: Normocephalic. EYES: No scleral icterus. No injection or drainage. NECK: Supple, trachea midline. No JVD or lymphadenopathy. CARDIOVASCULAR: Regular rate and rhythm without murmurs, gallops, or rubs. RESPIRATORY: Breath sounds equal bilaterally. No accessory muscle use. GASTROINTESTINAL: Abdomen soft, non-tender, nondistended. MUSCULOSKELETAL: No cyanosis, or edema. BACK: Nontender without obvious deformity. No CVA tenderness. Results - Labs CBC & Chem 7: 07/18/18 06:56 07/18/18 06:56 Assessment and Plan - Plan 77-year-old man with Stroke alert called (07/15/18) Head CT negative. Appreciate input from Neurology who felt that it wasn't a CVA or TIA. -neuro checks. Syncope/Orthostatic hypotension -d/c Midodrine and Florinef. BP improved, however patient still with orthostatic hypotension. -PT. -Neuro checks. HTN Blood pressure fluctuates widely. -continue diltiazem. -hydralazine as needed. Urinary tract infection UA indicative of an infection. Urine culture with no growth. -no antibiotics indicated. Paroxysmal atrial fibrillation Rate controlled. -continue home Diltiazem and Eliquis. 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 Daughter would like to keep patient in the hospital for the duration of treatment. -patient to follow up with oncology outpatient for further management. -Palliative care consult requested for goals of care and pain management. -Oxycodone Q8H scheduled. Anemia Stable. -follow CBC as needed. Back pain -oxycodone scheduled. -physical therapy. Depression Stable at this time. -Continue paroxetine 20 mg p.o. daily. Delirium-Improved -Appreciate input from psychiatry DVT ppx: Eliquis Discharge Planning: The patient's family would like the patient to stay here for his remaining radiation treatments. Follow-up with case management for discharge options
[2018-07-20] MEDS: Montelukast 10 MG Tablet PO SCH (17:05)
[2018-07-21] MEDS: dilTIAZem CD 240 MG Capsule PO SCH (08:20)
[2018-07-21] MEDS: Metoclopramide 10 MG Tablet PO SCH ×4 (08:21→20:04)
[2018-07-21] MEDS: Nystatin/Diphenhydramine/Lidocaine Mouthwash (Adult) 120 ML Botttle SWISH-SWAL SCH ×4 (08:21→20:03)
--- NOTE | 2018-07-21 15:17 | P.PN ---
Subjective Interval history: Follow-up for syncope, orthostatic hypotension, A. fib. Patient is resting in bed. Denies any acute concerns. Daughter is at bedside. Physical Exam Vital signs: Vital Signs 07/20/18 16:00 07/20/18 20:00 07/21/18 00:00 Temperature 97.7 F 97.8 F 98.5 F Pulse Rate 59 L 61 59 L Respiratory Rate 15 20 17 Blood Pressure 143/82 H 152/89 H 156/82 H Pulse Oximetry 97 100 96 07/21/18 04:00 07/21/18 08:00 Temperature 97.6 F 97.8 F Pulse Rate 60 62 Respiratory Rate 18 18 Blood Pressure 169/97 H 155/108 H Pulse Oximetry 95 95 Intake & Output 07/20/18 07/21/18 07/21/18 18:59 06:59 18:59 Intake Total 480 / 480 60 / 60 Output Total 650 / 650 650 / 650 Balance -170 / -170 -590 / -590 Weight 80.4 kg Intake: Oral 480 / 480 60 / 60 Output: Urine 650 / 650 650 / 650 Other: Date of Last Bowel Movement 07/21/18 # Bowel Movements 0 Narrative: GENERAL: NAD SKIN: Warm and dry. HEAD: Normocephalic. EYES: No scleral icterus. No injection or drainage. NECK: Supple, trachea midline. No JVD or lymphadenopathy. CARDIOVASCULAR: Regular rate and rhythm without murmurs, gallops, or rubs. RESPIRATORY: Breath sounds equal bilaterally. No accessory muscle use. GASTROINTESTINAL: Abdomen soft, non-tender, nondistended. MUSCULOSKELETAL: No cyanosis, or edema. BACK: Nontender without obvious deformity. No CVA tenderness. Results - Labs CBC & Chem 7: 07/18/18 06:56 07/18/18 06:56 Assessment and Plan - Plan Mr. Malhotra is a 77-year-old male with a history of A. fib, hypertension ,'s, cell carcinoma of the tongue, prostate and throat cancer who was admitted to the hospital due to possible syncopal episode as well as shortness of breath. Syncope Orthostatic hypotension Hypertension -Currently somewhat hypertensive -Midodrine discontinued. -Currently on hydralazine 25 mg 3 times daily. PT recommends rehab Paroxysmal atrial fibrillation Continue apixaban 5 mg p.o. twice daily Continue Cardizem 240 mg p.o. daily History of squamous cell cancer of the tongue Patient is currently receiving radiation therapy. If SNF can be arranged, patient can likely continue radiation therapy from SNF. Depression Continue paroxetine 20 mg p.o. daily Full code. Apixaban. Discharge plan: If patient can continue radiation therapy from SNF, we can likely discharge patient to SNF on in the next 1-2 days.
[2018-07-21] MEDS: Montelukast 10 MG Tablet PO SCH (17:34)
[2018-07-22] MEDS: dilTIAZem CD 240 MG Capsule PO SCH (08:24)
[2018-07-22] MEDS: Metoclopramide 10 MG Tablet PO SCH ×4 (08:24→20:25)
[2018-07-22] MEDS: Nystatin/Diphenhydramine/Lidocaine Mouthwash (Adult) 120 ML Botttle SWISH-SWAL SCH ×4 (08:25→20:25)
--- NOTE | 2018-07-22 13:31 | P.PN ---
Subjective Interval history: Follow-up for syncope, orthostatic hypotension, A. fib. Patient is currently resting in bed. Somewhat hard of hearing. Denies any chest pain, shortness of breath, fever or chills. Physical Exam Vital signs: Vital Signs 07/21/18 16:00 07/21/18 20:00 07/22/18 00:00 Temperature 97.4 F L 97.4 F L 97.5 F L Pulse Rate 61 54 L 74 Respiratory Rate 18 15 16 Blood Pressure 130/83 170/93 H 159/92 H Pulse Oximetry 97 100 94 L 07/22/18 04:00 07/22/18 08:00 Temperature 97.4 F L 97.7 F Pulse Rate 61 64 Respiratory Rate 18 20 Blood Pressure 170/95 H 133/70 Pulse Oximetry 93 L 93 L Intake & Output 07/21/18 07/22/18 07/22/18 18:59 06:59 18:59 Intake Total 360 / 360 360 / 360 Balance 360 / 360 360 / 360 Weight 79.1 kg Intake: Oral 360 / 360 360 / 360 Other: # Voids 1 # Incontinent Voids 2 Date of Last Bowel Movement 07/21/18 07/21/18 # Bowel Movements 0 Narrative: GENERAL: Alert, NAD SKIN: Warm and dry. HEAD: Normocephalic. EYES: No scleral icterus. No injection or drainage. NECK: Supple, trachea midline. No JVD or lymphadenopathy. CARDIOVASCULAR: Regular rate and rhythm without murmurs, gallops, or rubs. RESPIRATORY: Breath sounds equal bilaterally. No accessory muscle use. GASTROINTESTINAL: Abdomen soft, non-tender, nondistended. MUSCULOSKELETAL: No cyanosis, or edema. BACK: Nontender without obvious deformity. No CVA tenderness. Results - Labs CBC & Chem 7: 07/18/18 06:56 07/18/18 06:56 Assessment and Plan - Plan Mr. Malhotra is a 77-year-old male with a history of A. fib, hypertension ,'s, cell carcinoma of the tongue, prostate and throat cancer who was admitted to the hospital due to possible syncopal episode as well as shortness of breath. Syncope Orthostatic hypotension Hypertension -Currently on hydralazine 25 mg 3 times daily. Blood pressure is somewhat labile. Long-acting blood pressure medication such as amlodipine may be more helpful. PT recommends rehab Paroxysmal atrial fibrillation Continue apixaban 5 mg p.o. twice daily Continue Cardizem 240 mg p.o. daily History of squamous cell cancer of the tongue Patient is currently receiving radiation therapy. If SNF can be arranged, patient can likely continue radiation therapy from SNF. Depression Continue paroxetine 20 mg p.o. daily Full code. Apixaban. Discharge plan: Awaiting SNF placement. Multiple facilities have declined to accept this patient so far. Will discuss with radiation oncology regarding length of treatment.
[2018-07-22] MEDS: Montelukast 10 MG Tablet PO SCH (17:25)
[2018-07-23] MEDS: dilTIAZem CD 240 MG Capsule PO SCH (08:12)
[2018-07-23] MEDS: Metoclopramide 10 MG Tablet PO SCH ×4 (08:12→22:18)
[2018-07-23] MEDS: Nystatin/Diphenhydramine/Lidocaine Mouthwash (Adult) 120 ML Botttle SWISH-SWAL SCH ×4 (09:00→22:19)
--- NOTE | 2018-07-23 16:10 | P.PN ---
Subjective Interval history: Follow-up for syncope, orthostatic hypotension, A. fib. Patient is currently doing well. He wants to go home. Denies any acute concerns. Physical Exam Vital signs: Vital Signs 07/22/18 19:15 07/23/18 00:00 07/23/18 04:00 Temperature 98.1 F 98.1 F 97.9 F Pulse Rate 62 59 L 75 Respiratory Rate 16 20 18 Blood Pressure 150/84 H 158/95 H 148/70 H Pulse Oximetry 95 96 94 L 07/23/18 08:00 07/23/18 13:00 07/23/18 16:00 Temperature Pulse Rate Respiratory Rate 20 20 20 Blood Pressure Pulse Oximetry Intake & Output 07/22/18 07/23/18 07/23/18 18:59 06:59 18:59 Intake Total 360 / 360 240 / 240 Balance 360 / 360 240 / 240 Intake: Oral 360 / 360 240 / 240 Other: # Voids 1 # Urine Diapers 2 Date of Last Bowel Movement 07/21/18 07/21/18 # Bowel Movements 0 Narrative: GENERAL: Alert, NAD SKIN: Warm and dry. HEAD: Normocephalic. EYES: No scleral icterus. No injection or drainage. NECK: Supple, trachea midline. No JVD or lymphadenopathy. CARDIOVASCULAR: Regular rate and rhythm without murmurs, gallops, or rubs. RESPIRATORY: Breath sounds equal bilaterally. No accessory muscle use. GASTROINTESTINAL: Abdomen soft, non-tender, nondistended. MUSCULOSKELETAL: No cyanosis, or edema. BACK: Nontender without obvious deformity. No CVA tenderness. Results - Labs CBC & Chem 7: 07/18/18 06:56 07/18/18 06:56 Assessment and Plan - Plan Mr. Malhotra is a 77-year-old male with a history of A. fib, hypertension ,'s, cell carcinoma of the tongue, prostate and throat cancer who was admitted to the hospital due to possible syncopal episode as well as shortness of breath. Syncope Orthostatic hypotension Hypertension -Currently on hydralazine 25 mg 3 times daily. Blood pressure is somewhat labile. Long-acting blood pressure medication such as amlodipine may be more helpful. PT recommends rehab Paroxysmal atrial fibrillation Continue apixaban 5 mg p.o. twice daily Continue Cardizem 240 mg p.o. daily History of squamous cell cancer of the tongue Patient is currently receiving radiation therapy. If SNF can be arranged, patient can likely continue radiation therapy from SNF. Depression Continue paroxetine 20 mg p.o. daily Full code. Apixaban. Discharge plan: Discussed with case management and nursing staff. Patient's daughter does not want to take patient home because she wants patient to stay in the hospital until radiation treatments are completed. Patient has been denied by multiple SNF.
[2018-07-23] MEDS: Montelukast 10 MG Tablet PO SCH (17:56)
[2018-07-24] MEDS: dilTIAZem CD 240 MG Capsule PO SCH (10:15)
[2018-07-24] MEDS: Metoclopramide 10 MG Tablet PO SCH ×4 (10:15→20:21)
[2018-07-24] MEDS: Nystatin/Diphenhydramine/Lidocaine Mouthwash (Adult) 120 ML Botttle SWISH-SWAL SCH ×4 (10:16→20:21)
--- NOTE | 2018-07-24 13:28 | P.PN ---
Subjective Interval history: Follow-up for syncope, orthostatic hypotension, A. fib, tongue cancer. Patient is resting in bed. Denies any acute concerns. He is going for radiation therapy today. Physical Exam Vital signs: Vital Signs 07/23/18 16:00 07/23/18 20:00 07/23/18 23:38 Temperature 98.0 F 98 F 97.9 F Pulse Rate 61 78 66 Respiratory Rate 20 18 16 Blood Pressure 169/88 H 158/82 H 149/83 H Pulse Oximetry 96 96 95 07/24/18 00:00 07/24/18 04:00 07/24/18 08:00 Temperature 97.8 F 97.8 F Pulse Rate 71 71 Respiratory Rate 18 18 Blood Pressure 155/98 H 160/96 H Pulse Oximetry 98 98 Intake & Output 07/23/18 07/24/18 07/24/18 18:59 06:59 18:59 Intake Total 240 / 240 Balance 240 / 240 Weight 76.8 kg Intake: Oral 240 / 240 Other: # Voids 2 # Incontinent Voids 3 Date of Last Bowel Movement 07/21/18 07/21/18 07/21/18 # Bowel Movements 0 Narrative: GENERAL: Alert, NAD SKIN: Warm and dry. HEAD: Normocephalic. EYES: No scleral icterus. No injection or drainage. NECK: Supple, trachea midline. No JVD or lymphadenopathy. CARDIOVASCULAR: Regular rate and rhythm without murmurs, gallops, or rubs. RESPIRATORY: Breath sounds equal bilaterally. No accessory muscle use. GASTROINTESTINAL: Abdomen soft, non-tender, nondistended. MUSCULOSKELETAL: No cyanosis, or edema. BACK: Nontender without obvious deformity. No CVA tenderness. Results - Labs CBC & Chem 7: 07/18/18 06:56 07/18/18 06:56 Assessment and Plan - Plan Mr. Malhotra is a 77-year-old male with a history of A. fib, hypertension ,'s, cell carcinoma of the tongue, prostate and throat cancer who was admitted to the hospital due to possible syncopal episode as well as shortness of breath. Syncope Orthostatic hypotension Hypertension -Currently on hydralazine 25 mg 3 times daily. Blood pressure is somewhat labile. Long-acting blood pressure medication such as amlodipine may be more helpful. PT recommends rehab Paroxysmal atrial fibrillation Continue apixaban 5 mg p.o. twice daily Continue Cardizem 240 mg p.o. daily History of squamous cell cancer of the tongue Patient is currently receiving radiation therapy. If SNF can be arranged, patient can likely continue radiation therapy from SNF. Depression Continue paroxetine 20 mg p.o. daily Full code. Apixaban. Discharge plan: Discussed with case management and nursing staff. Patient's daughter does not want to take patient home because she wants patient to stay in the hospital until radiation treatments are completed. Patient has been denied by multiple SNF. 07/24/2018: No acute changes in management. Continue supportive care.
--- NOTE | 2018-07-24 18:19 | P.PNPAL ---
Reason for Visit Reason for visit: a. To assist with evaluation and management of symptoms including: pain, depression b. To assist medical decision maker(s) with: better understanding of current medical conditions; weighing benefits/burdens of medical treatment options; making medical treatment decisions. Subjective Subjective/Interval History: Follow up visit for symptom management and clarification of medical treatment goal. Patient seen and assessed in room 1423. No family at bedside. Patient is awake, somewhat confused but able to respond to some questions and follow simple one- step commands. He does not know that he went to radiation earlier today, but can tell me the name of his whose picture is on the counter in his hospital room and knows when she . He denies pain at the time of exam. Current orders for oxycodone 7.5mg PO q8 hours ATC. No signs or symptoms of non-verbal pain reported. No recent lab work or imaging available. A healthcare surrogate designation form was completed on 04/30/2018 designating patient's grandson (Damien Leo) as the primary healthcare surrogate decision- maker. Daughter, Jillian Francis, is the alternate. Palliative care attempted to contact both Damien and Jillian multiple times without success. Messages were left for daughter, Jillian Francis. Per's case management notes, agents daughter (Elis) once her father to remain at the hospital he has completed radiation. Message left for Elis hay, today 07/24/18. Awaiting return phone call. Family/Friend Interactions: See interval history Advance Directives Advance Directives Date on File: 04/30/18 Health Care Surrogate Name and Number: Damien Leo (grandson) [phone] Objective Vital Signs: Vital Signs 07/23/18 20:00 07/23/18 23:38 07/24/18 00:00 Temperature 98 F 97.9 F Pulse Rate 78 66 Respiratory Rate 18 16 18 Blood Pressure 158/82 H 149/83 H Pulse Oximetry 96 95 07/24/18 04:00 07/24/18 08:00 07/24/18 12:00 Temperature 97.8 F 97.8 F 97.7 F Pulse Rate 71 71 70 Respiratory Rate 18 18 17 Blood Pressure 155/98 H 160/96 H 156/108 H Pulse Oximetry 98 98 97 07/24/18 13:30 Temperature Pulse Rate Respiratory Rate 18 Blood Pressure Pulse Oximetry Intake & Output 07/23/18 07/24/18 07/24/18 18:59 06:59 18:59 Intake Total 240 / 240 Balance 240 / 240 Weight 76.8 kg Intake: Oral 240 / 240 Other: # Voids 2 # Incontinent Voids 3 Date of Last Bowel Movement 07/21/18 07/21/18 07/21/18 # Bowel Movements 0 Physical Exam: CONSTITUTIONAL/GENERAL: This is an adequately nourished patient, in no apparent distress. TUBES/LINES/DRAINS: PIV SKIN: No jaundice, rashes, or lesions. Ecchymoses on upper extremities. No wounds seen anteriorly. Skin temperature appropriate. Not diaphoretic. HEAD: Atraumatic. Normocephalic. EYES: Pupils equal and round and reactive. Extraocular motions intact. No scleral icterus. No injection or drainage. Fundi not examined. ENT: [place]. Nose without bleeding or purulent drainage. Oral mucosa moist NECK: Trachea midline. Supple, nontender. No palpable thyroid enlargement or nodularity. CARDIOVASCULAR: Regular rate and rhythm without murmurs, gallops, or rubs. No JVD. Peripheral pulses symmetric. RESPIRATORY/CHEST: Symmetric, unlabored respirations. Clear to auscultation. Breath sounds equal bilaterally. No wheezes, rales, or rhonchi. GASTROINTESTINAL: Abdomen soft, non-tender, nondistended. No guarding. Bowel sounds present. GENITOURINARY: Without palpable bladder distension. F MUSCULOSKELETAL: Extremities without clubbing, cyanosis, or edema. No mottling or clubbing. NEUROLOGICAL: Awake and alert. Somewhat confused but able to respond to routine questions and simple one-step commands PSYCHIATRIC: Mild anxiety noted. no apparent hallucinations or other psychotic thought process. Diagnostic Tests Result Diagrams: 07/18/18 06:56 07/18/18 06:56 Microbiology: Microbiology 07/03/18 15:30 Catheterized Urine Urine Culture - Final No growth in 48 hours Imaging: Chest X-Ray 07/03/18 14:38 CONCLUSION: Negative examination. Cervical Spine MRI 07/15/18 00:00 CONCLUSION: 1. Degenerative spondylosis of the lower cervical spine most prominently at C5- 6 and C6-7 with moderate central canal narrowing at C5-6. 2. Mild right-sided neural foraminal narrowing at C4-5 and C6-7 without impingement. Head MRI 07/15/18 00:00 CONCLUSION: 1. No acute intracranial abnormality. No abnormalities seen on the diffusion- weighted images to suggest acute infarction. 2. Age-related atrophy and suspected small vessel ischemic change in the white matter. Head CT 07/15/18 08:49 CONCLUSION: 1. No acute areas of hemorrhage or mass effect are seen. 2. Atrophy. 3. Old lacunar infarct. Report was called by by Dr. Carlos to Dr. Serrano at 9:06 AM.] Assessment and Plan - Disease Oriented Problem List (1) Syncope due to autonomic failure (2) UTI (urinary tract infection) (3) Hypokalemia (4) Dehydration (5) Paroxysmal atrial fibrillation with rapid ventricular response (6) Squamous cell cancer of tongue Comment: = Currently undergoing radiation treatments. 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 He is a ; his of 57 years dies last year from breast cancer. He has 2 adult daughters and 4 grandchildren. Patient has been depressed since his ; denies suicidal ideation. He had a brother who committed suicide. Spiritual: Tenriism aminata Legal: Healthcare surrogate designation form was completed on 04/30/2018 designating grandson (Damien Garcia) as the primary healthcare surrogate decision-maker. Daughter (Jillian Francis) is designated as the alternate HCS. Multiple attempts have been made to reach both healthcare surrogate's without success. Message left for daughter Elis. Ethical issues impacting care: No known ethical issues impacting care at this time. 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 He is having orthostatic hypotension , dysphagia, odynophagia, decreased PO intakewith associated weight loss. Patient undergoing concurrent chemo with weekly cisplatin. Prognosis guarded. Code Status: Full Code Plan: * FULL CODE * A healthcare surrogate designation form was completed on 04/30/2018 designating patient's grandson (Damien Leo) as the primary healthcare surrogate decision-maker. Daughter, Jillian Francis, is the alternate. * Discussed patient with RN (Marah). * Palliative care attempted to contact both Damien and Jillian at the listed numbers. Unable to leave a message for the patient's grandson, but palliative care contact information was left multiple times for Jillian Francis without response. Attempted to contact daughter, Elis, today. Message left. * Symptom management: Pain: Multifactoral, acute and chronic. He admits to discomfort in his throat and lower back but does not rate or describe his pain. His family states is on scheduled oxycodone at home. Denies pain on examination. Oxycodone 7.5mg PO is scheduled q8 hours. Showing no signs or symptoms of nonverbal pain on exam Depression: Situational. Pt. lost his last year at this time. Psychiatry consulted for capacity; felt the patient did not have capacity for medical decision-making. Previously on fluoxetine 20mg daily-restarted 07/09/18. Patient talking about his today 2017; he tells me he is sad but does not become tearful * Palliative care will continue to follow this patient throughout his hospitalization to establish trust, assist with symptom management and clarification of medical treatment goals. Attestation Attestation: To help prompt me to consider important information that might be impacting today's encounter and assessment, information from prior notes written by myself or my colleagues may have been "brought forward" into today's note. My signature on this note, however, is an attestation that I personally performed the exam, history, and/or decision-making noted today, and, unless otherwise indicated, the interactions with patient, family, and staff as well as the review of records all occurred today. I also attest that the listed assessment and stated plan reflect my best clinical judgment today based on the combination of historical information, prior notes, and today's exam/ interactions. When time spent is documented, it refers only to time spent today by the signer, or if indicated, combined time spent today by collaborating physician/nurse practitioner.
[2018-07-24] MEDS: Montelukast 10 MG Tablet PO SCH (18:45)
[2018-07-25] MEDS: dilTIAZem CD 240 MG Capsule PO SCH (13:12)
[2018-07-25] MEDS: Nystatin/Diphenhydramine/Lidocaine Mouthwash (Adult) 120 ML Botttle SWISH-SWAL SCH ×3 (13:12→22:01)
[2018-07-25] MEDS: Metoclopramide 10 MG Tablet PO SCH ×3 (13:13→22:01)
--- NOTE | 2018-07-25 15:17 | P.PN ---
Subjective Interval history: Follow-up for syncope, orthostatic hypotension, A. fib, tongue cancer. Tolerating radiation therapy. No fever or chills. No n/v/d.c, Eating fairly well. The nurses tell me that he is not eating. Physical Exam Vital signs: Vital Signs 07/24/18 16:00 07/24/18 20:00 07/25/18 00:00 Temperature 97.4 F L 97.8 F Pulse Rate 67 74 Respiratory Rate 18 15 18 Blood Pressure 162/75 H 156/92 H Pulse Oximetry 97 95 07/25/18 04:00 07/25/18 08:00 07/25/18 12:00 Temperature 97.5 F L 98.2 F 97.5 F L Pulse Rate 71 70 76 Respiratory Rate 18 Blood Pressure 148/82 H 172/99 H 133/82 Pulse Oximetry 98 96 96 Intake & Output 07/24/18 07/25/18 07/25/18 18:59 06:59 18:59 Intake Total 0 / 0 Output Total 550 / 550 Balance 0 / 0 -550 / -550 Weight 75.9 kg Intake: Other 0 / 0 Output: Urine 550 / 550 Other: # Incontinent Voids 2 Date of Last Bowel Movement 07/21/18 07/21/18 07/24/18 Narrative: GENERAL: Alert, NAD CARDIOVASCULAR: Regular rate and rhythm without murmurs, gallops, or rubs. RESPIRATORY: Breath sounds equal bilaterally. No accessory muscle use. GASTROINTESTINAL: Abdomen soft, non-tender, nondistended. MUSCULOSKELETAL: No cyanosis, or edema. BACK: Nontender without obvious deformity. No CVA tenderness. Results - Labs CBC & Chem 7: 07/18/18 06:56 07/18/18 06:56 Assessment and Plan - Plan Mr. Malhotra is a 77-year-old male with a history of A. fib, hypertension ,'s, cell carcinoma of the tongue, prostate and throat cancer who was admitted to the hospital due to possible syncopal episode as well as shortness of breath. 07/25/2018: Continue the same management. Continue supportive care. Syncope Orthostatic hypotension Hypertension -Currently on hydralazine 25 mg 3 times daily. Blood pressure is somewhat labile. Long-acting blood pressure medication such as amlodipine may be more helpful. PT recommends rehab Paroxysmal atrial fibrillation Continue apixaban 5 mg p.o. twice daily Continue Cardizem 240 mg p.o. daily History of squamous cell cancer of the tongue Patient is currently receiving radiation therapy. If SNF can be arranged, patient can likely continue radiation therapy from SNF. Depression Continue paroxetine 20 mg p.o. daily Full code. Apixaban. Discharge plan: Discussed with case management and nursing staff. Patient's daughter does not want to take patient home because she wants patient to stay in the hospital until radiation treatments are completed. Patient has been denied by multiple SNF.
[2018-07-25] MEDS: Montelukast 10 MG Tablet PO SCH (18:13)
[2018-07-26] MEDS: Metoclopramide 10 MG Tablet PO SCH ×4 (10:29→20:32)
[2018-07-26] MEDS: dilTIAZem CD 240 MG Capsule PO SCH (10:29)
[2018-07-26] MEDS: Nystatin/Diphenhydramine/Lidocaine Mouthwash (Adult) 120 ML Botttle SWISH-SWAL SCH ×4 (10:29→20:33)
--- NOTE | 2018-07-26 15:07 | P.PNIM ---
Subjective Interval history: 12-4 Follow-up for syncope, orthostatic hypotension, A. fib, tongue cancer. Patient is resting in bed. Denies any acute concerns. He is going for radiation therapy today. 12-5 Follow-up for syncope, orthostatic hypotension, A. fib, tongue cancer. Tolerating radiation therapy. No fever or chills. No n/v/d.c, Eating fairly well. The nurses tell me that he is not eating. 12-6 STILL GETTING RADIATION HERE TOLERATES IT WELL POOR APPETITE NO NEED FOR ADMISSION AT THIS TIME WILL DC TO SNF VS HOME CAN DO RADIATION THERAPY AN OUTPATIENT DOES NOT MEET REQUIREMENTS FOR INPATIENT ADMISSION Physical Exam Vital signs: Vital Signs 07/25/18 16:00 07/25/18 20:00 07/26/18 00:00 Temperature 97.9 F 98.2 F 98.1 F Pulse Rate 56 L 76 77 Respiratory Rate 18 19 17 Blood Pressure 175/83 H 100/90 154/99 H Pulse Oximetry 98 93 L 95 07/26/18 04:00 07/26/18 08:00 07/26/18 12:00 Temperature 98.4 F 97.8 F 98.2 F Pulse Rate 73 75 77 Respiratory Rate 16 17 18 Blood Pressure 149/90 H 135/84 143/83 H Pulse Oximetry 94 L 96 99 Intake & Output 07/25/18 07/26/18 07/26/18 18:59 06:59 18:59 Intake Total 120 / 120 100 / 100 Balance 120 / 120 100 / 100 Weight 76.4 kg Intake: Oral 120 / 120 100 / 100 Other: # Voids 2 # Incontinent Voids 3 Date of Last Bowel Movement 07/24/18 07/25/18 # Bowel Movements 1 # Incontinent Bowel Movements 2 Narrative: GENERAL: Alert, NAD CARDIOVASCULAR: Regular rate and rhythm without murmurs, gallops, or rubs. RESPIRATORY: Breath sounds equal bilaterally. No accessory muscle use. GASTROINTESTINAL: Abdomen soft, non-tender, nondistended. MUSCULOSKELETAL: No cyanosis, or edema. BACK: Nontender without obvious deformity. No CVA tenderness. Results - Labs CBC & Chem 7: 07/18/18 06:56 07/18/18 06:56 Laboratory Tests 07/03/18 07/03/18 07/03/18 14:45 14:45 14:45 WBC 10.1 RBC 3.69 L Hgb 12.1 L POC Hgb (Calc) Hct 35.4 L POC Hct MCV 95.7 MCH 32.8 MCHC 34.3 RDW 16.6 Plt Count 257 MPV 6.9 L Neut % (Auto) 73.2 H Lymph % (Auto) 19.3 [place] % (Auto) 7.2 Eos % (Auto) 0.0 Baso % (Auto) 0.3 Neut # (Auto) 7.4 Lymph # (Auto) 2.0 [place] # (Auto) 0.7 Eos # (Auto) 0.0 Baso # (Auto) 0.0 WBC Differential . Differential Comment Auto diff final PT 11.3 INR 1.1 APTT 30.3 Fibrinogen POC Sodium Sodium 138 POC Potassium Potassium 2.9 L* POC Chloride Chloride 99 Carbon Dioxide 31.1 Anion Gap 8 POC BUN BUN 15 Creatinine 0.91 POC Creatinine Estimated GFR 81 L POC Glucose Random Glucose 108 H Calcium 8.9 Phosphorus Magnesium 1.8 Total Bilirubin 0.6 AST 15 ALT 19 Alkaline Phosphatase 125 H Total Creatine Kinase Troponin I Less than 0.02 L Total Protein 6.4 Albumin 2.7 L Urine Color Urine Clarity Urine pH Ur Specific [place] Urine Protein Urine Glucose (UA) Urine Ketones Urine Occult Blood Urine Nitrate Urine Bilirubin Urine Urobilinogen Ur Leukocyte Esterase Urine RBC Urine WBC Urine WBC Clumps Amorphous Sediment Urine Bacteria Hyaline Casts Urine Mucus Micro UA Comment Ur Microscopic Review Urine Culture Comments Blood Type Antibody Screen 07/03/18 07/03/18 07/04/18 15:30 19:00 01:00 WBC RBC Hgb POC Hgb (Calc) Hct POC Hct MCV MCH MCHC RDW Plt Count MPV Neut % (Auto) Lymph % (Auto) [place] % (Auto) Eos % (Auto) Baso % (Auto) Neut # (Auto) Lymph # (Auto) [place] # (Auto) Eos # (Auto) Baso # (Auto) WBC Differential Differential Comment PT INR APTT Fibrinogen POC Sodium Sodium POC Potassium Potassium POC Chloride Chloride Carbon Dioxide Anion Gap POC BUN BUN Creatinine POC Creatinine Estimated GFR POC Glucose Random Glucose Calcium Phosphorus Magnesium Total Bilirubin AST ALT Alkaline Phosphatase Total Creatine Kinase Troponin I Less than 0.02 L Less than 0.02 L Total Protein Albumin Urine Color Yellow Urine Clarity Hazy H Urine pH 6.0 Ur Specific [place] 1.016 Urine Protein 30 H Urine Glucose (UA) Negative Urine Ketones Trace H Urine Occult Blood Small H Urine Nitrate Negative Urine Bilirubin Negative Urine Urobilinogen 2.0 H Ur Leukocyte Esterase Moderate H Urine RBC 7 H Urine WBC 42 H Urine WBC Clumps Few H Amorphous Sediment Rare H Urine Bacteria Few H Hyaline Casts 8 Urine Mucus Few H Micro UA Comment Cath-culture ind Ur Microscopic Review Not Reportable Urine Culture Comments Cath-cult indicated Blood Type Antibody Screen 07/04/18 07/04/18 07/05/18 06:00 06:00 07:34 WBC 8.5 8.9 RBC 3.33 L 3.51 L Hgb 11.0 L 11.6 L POC Hgb (Calc) Hct 32.0 L 33.1 L POC Hct MCV 96.0 94.3 MCH 32.9 33.2 MCHC 34.3 35.2 RDW 16.3 16.4 Plt Count 220 223 MPV 6.5 L 6.9 L Neut % (Auto) 65.9 69.2 Lymph % (Auto) 26.0 22.3 [place] % (Auto) 7.9 8.2 H Eos % (Auto) 0.0 0.0 Baso % (Auto) 0.2 0.3 Neut # (Auto) 5.6 6.1 Lymph # (Auto) 2.2 2.0 [place] # (Auto) 0.7 0.7 Eos # (Auto) 0.0 0.0 Baso # (Auto) 0.0 0.0 WBC Differential . . Differential Comment Auto diff final Auto diff final PT INR APTT Fibrinogen POC Sodium Sodium 141 POC Potassium Potassium 2.9 L* POC Chloride Chloride 103 Carbon Dioxide 28.1 Anion Gap 10 POC BUN BUN 9 Creatinine 0.76 POC Creatinine Estimated GFR Greater than 89 POC Glucose Random Glucose 104 Calcium 8.3 L Phosphorus Magnesium Total Bilirubin AST ALT Alkaline Phosphatase Total Creatine Kinase Troponin I Total Protein Albumin Urine Color Urine Clarity Urine pH Ur Specific [place] Urine Protein Urine Glucose (UA) Urine Ketones Urine Occult Blood Urine Nitrate Urine Bilirubin Urine Urobilinogen Ur Leukocyte Esterase Urine RBC Urine WBC Urine WBC Clumps Amorphous Sediment Urine Bacteria Hyaline Casts Urine Mucus Micro UA Comment Ur Microscopic Review Urine Culture Comments Blood Type Antibody Screen 07/05/18 07/06/18 07/06/18 07:34 21:09 22:29 WBC RBC Hgb POC Hgb (Calc) Hct POC Hct MCV MCH MCHC RDW Plt Count MPV Neut % (Auto) Lymph % (Auto) [place] % (Auto) Eos % (Auto) Baso % (Auto) Neut # (Auto) Lymph # (Auto) [place] # (Auto) Eos # (Auto) Baso # (Auto) WBC Differential Differential Comment PT INR APTT Fibrinogen POC Sodium Sodium 141 139 POC Potassium Potassium 3.0 L 3.3 L POC Chloride Chloride 102 101 Carbon Dioxide 28.0 30.0 Anion Gap 11 8 POC BUN BUN 9 21 H Creatinine 0.70 0.86 POC Creatinine Estimated GFR Greater than 89 86 L POC Glucose 123 H Random Glucose 101 112 H Calcium 8.4 L 8.0 L Phosphorus 2.3 L 2.4 L Magnesium 1.6 1.7 Total Bilirubin AST ALT Alkaline Phosphatase Total Creatine Kinase Troponin I Total Protein Albumin Urine Color Urine Clarity Urine pH Ur Specific [place] Urine Protein Urine Glucose (UA) Urine Ketones Urine Occult Blood Urine Nitrate Urine Bilirubin Urine Urobilinogen Ur Leukocyte Esterase Urine RBC Urine WBC Urine WBC Clumps Amorphous Sediment Urine Bacteria Hyaline Casts Urine Mucus Micro UA Comment Ur Microscopic Review Urine Culture Comments Blood Type Antibody Screen 07/07/18 07/08/18 07/10/18 11:24 04:46 05:25 WBC 8.6 RBC 2.86 L Hgb 9.3 L POC Hgb (Calc) Hct 27.7 L POC Hct MCV 96.9 MCH 32.7 MCHC 33.7 RDW 16.4 Plt Count 225 MPV 7.9 Neut % (Auto) Lymph % (Auto) [place] % (Auto) Eos % (Auto) Baso % (Auto) Neut # (Auto) Lymph # (Auto) [place] # (Auto) Eos # (Auto) Baso # (Auto) WBC Differential Differential Comment PT INR APTT Fibrinogen POC Sodium Sodium 139 136 POC Potassium Potassium 3.6 3.7 POC Chloride Chloride 100 103 Carbon Dioxide 32.3 H 27.3 Anion Gap 7 6 POC BUN BUN 19 H 16 Creatinine 0.86 0.71 POC Creatinine Estimated GFR 86 L Greater than 89 POC Glucose Random Glucose 151 H 94 Calcium 8.3 L 8.2 L Phosphorus 2.5 Magnesium 1.8 Total Bilirubin AST ALT Alkaline Phosphatase Total Creatine Kinase Troponin I Total Protein Albumin Urine Color Urine Clarity Urine pH Ur Specific [place] Urine Protein Urine Glucose (UA) Urine Ketones Urine Occult Blood Urine Nitrate Urine Bilirubin Urine Urobilinogen Ur Leukocyte Esterase Urine RBC Urine WBC Urine WBC Clumps Amorphous Sediment Urine Bacteria Hyaline Casts Urine Mucus Micro UA Comment Ur Microscopic Review Urine Culture Comments Blood Type Antibody Screen 07/10/18 07/15/18 07/15/18 05:25 08:37 08:45 WBC RBC Hgb POC Hgb (Calc) 9.5 L Hct POC Hct 28.0 L MCV MCH MCHC RDW Plt Count MPV Neut % (Auto) Lymph % (Auto) [place] % (Auto) Eos % (Auto) Baso % (Auto) Neut # (Auto) Lymph # (Auto) [place] # (Auto) Eos # (Auto) Baso # (Auto) WBC Differential Differential Comment PT INR APTT Fibrinogen POC Sodium 140 Sodium 142 POC Potassium 3.5 L Potassium 3.5 POC Chloride 97 L Chloride 105 Carbon Dioxide 29.5 Anion Gap 8 POC BUN 11 BUN 17 Creatinine 0.68 POC Creatinine 0.8 Estimated GFR Greater than 89 POC Glucose 123 H 123 H Random Glucose 108 H Calcium 8.1 L Phosphorus 2.8 Magnesium 1.8 Total Bilirubin AST ALT Alkaline Phosphatase Total Creatine Kinase Troponin I Total Protein Albumin Urine Color Urine Clarity Urine pH Ur Specific [place] Urine Protein Urine Glucose (UA) Urine Ketones Urine Occult Blood Urine Nitrate Urine Bilirubin Urine Urobilinogen Ur Leukocyte Esterase Urine RBC Urine WBC Urine WBC Clumps Amorphous Sediment Urine Bacteria Hyaline Casts Urine Mucus Micro UA Comment Ur Microscopic Review Urine Culture Comments Blood Type Antibody Screen 07/15/18 07/15/18 07/15/18 08:45 08:45 08:45 WBC 6.9 RBC 3.00 L Hgb 10.3 L POC Hgb (Calc) Hct 28.6 L POC Hct MCV 95.5 MCH 34.2 H MCHC 35.9 RDW 16.0 Plt Count 297 D MPV 6.8 L Neut % (Auto) 65.8 Lymph % (Auto) 24.7 [place] % (Auto) 9.1 H Eos % (Auto) 0.0 Baso % (Auto) 0.4 Neut # (Auto) 4.5 Lymph # (Auto) 1.7 [place] # (Auto) 0.6 Eos # (Auto) 0.0 Baso # (Auto) 0.0 WBC Differential . Differential Comment Auto diff final PT 11.2 INR 1.1 APTT 30.2 Fibrinogen 446 H POC Sodium Sodium POC Potassium Potassium POC Chloride Chloride Carbon Dioxide Anion Gap POC BUN BUN Creatinine POC Creatinine Estimated GFR POC Glucose Random Glucose Calcium Phosphorus Magnesium Total Bilirubin AST ALT Alkaline Phosphatase Total Creatine Kinase 24 L Troponin I Less than 0.02 L Total Protein Albumin Urine Color Urine Clarity Urine pH Ur Specific [place] Urine Protein Urine Glucose (UA) Urine Ketones Urine Occult Blood Urine Nitrate Urine Bilirubin Urine Urobilinogen Ur Leukocyte Esterase Urine RBC Urine WBC Urine WBC Clumps Amorphous Sediment Urine Bacteria Hyaline Casts Urine Mucus Micro UA Comment Ur Microscopic Review Urine Culture Comments Blood Type Antibody Screen 07/15/18 07/18/18 07/18/18 08:45 06:56 06:56 WBC 7.5 RBC 3.09 L Hgb 10.3 L POC Hgb (Calc) Hct 29.8 L POC Hct MCV 96.3 MCH 33.2 MCHC 34.5 RDW 16.0 Plt Count 308 MPV 6.5 L Neut % (Auto) 64.3 Lymph % (Auto) 25.8 [place] % (Auto) 9.7 H Eos % (Auto) 0.0 Baso % (Auto) 0.2 Neut # (Auto) 4.8 Lymph # (Auto) 1.9 [place] # (Auto) 0.7 Eos # (Auto) 0.0 Baso # (Auto) 0.0 WBC Differential . Differential Comment Auto diff final PT INR APTT Fibrinogen POC Sodium Sodium 142 POC Potassium Potassium 4.0 POC Chloride Chloride 105 Carbon Dioxide 33.6 H Anion Gap 3 L POC BUN BUN 14 Creatinine 0.95 POC Creatinine Estimated GFR 77 L POC Glucose Random Glucose 114 H Calcium 8.3 L Phosphorus Magnesium Total Bilirubin 0.4 AST 12 L ALT 17 Alkaline Phosphatase 110 Total Creatine Kinase Troponin I Total Protein 5.9 L Albumin 2.3 L Urine Color Urine Clarity Urine pH Ur Specific [place] Urine Protein Urine Glucose (UA) Urine Ketones Urine Occult Blood Urine Nitrate Urine Bilirubin Urine Urobilinogen Ur Leukocyte Esterase Urine RBC Urine WBC Urine WBC Clumps Amorphous Sediment Urine Bacteria Hyaline Casts Urine Mucus Micro UA Comment Ur Microscopic Review Urine Culture Comments Blood Type A Negative Antibody Screen Negative - Imaging ITS Impressions Chest X-Ray 07/03/18 14:38 CONCLUSION: Negative examination. Cervical Spine MRI 07/15/18 00:00 CONCLUSION: 1. Degenerative spondylosis of the lower cervical spine most prominently at C5- 6 and C6-7 with moderate central canal narrowing at C5-6. 2. Mild right-sided neural foraminal narrowing at C4-5 and C6-7 without impingement. Head MRI 07/15/18 00:00 CONCLUSION: 1. No acute intracranial abnormality. No abnormalities seen on the diffusion- weighted images to suggest acute infarction. 2. Age-related atrophy and suspected small vessel ischemic change in the white matter. Head CT 07/15/18 08:49 CONCLUSION: 1. No acute areas of hemorrhage or mass effect are seen. 2. Atrophy. 3. Old lacunar infarct. Report was called by by Dr. Carlos to Dr. Serrano at 9:06 AM.] - Procedures RADIATION THERAPY Assessment and Plan - Plan Mr. Malhotra is a 77-year-old male with a history of A. fib, hypertension ,'s, cell carcinoma of the tongue, prostate and throat cancer who was admitted to the hospital due to possible syncopal episode as well as shortness of breath. 07/25/2018: Continue the same management. Continue supportive care. Syncope Orthostatic hypotension Hypertension -Currently on hydralazine 25 mg 3 times daily. Blood pressure is somewhat labile. Long-acting blood pressure medication such as amlodipine may be more helpful. PT recommends rehab Paroxysmal atrial fibrillation Continue apixaban 5 mg p.o. twice daily Continue Cardizem 240 mg p.o. daily History of squamous cell cancer of the tongue Patient is currently receiving radiation therapy. If SNF can be arranged, patient can likely continue radiation therapy from SNF. Depression Continue paroxetine 20 mg p.o. daily Full code. Apixaban. Code Status: FULL CODE Discussed Condition With: RN AND PT AND CM DC TO HOME OR SNF Discharge Planning: Discharge plan: Discussed with case management and nursing staff. Patient's daughter does not want to take patient home because she wants patient to stay in the hospital until radiation treatments are completed. Patient has been denied by multiple SNF. DC TO HOME OR SNF
--- NOTE | 2018-07-26 15:14 | P.DS ---
Date of admission: 07/03/18 17:16 Primary care physician: UNKNOWN Attending physician on discharge: Eliud Reyes Anticipated date of discharge: 07/26/18 Brief History from admission: Patient is a 77 year old male with a past medical history significant for atrial fibrillation on a/c with Eliquis, orthostatic hypotension/ hypertension, squamous cell carcinoma of the tongue, prostate and throat cancer. Patient was recently admitted on 06/22/18 for syncope and orthostatic hypotension and discharged to a SNF on 07/02/18. He was evaluated by Cardiology during previous admissions and was noted to have labile hypertension with autonomic instability and orthostatic hypotension. He is currently being treated with Midodrine. Patient presents after experiencing a syncopal episode and shortness of breath during transfer with a Emiliana Lift at [facility]. Patient was transferred to ED for further evaluation and treatment. He is a poor historian at time of evaluation. He is able to mumble that he is cold and to cover him up. He does follow verbal commands, however, does not answer when asked additional questions. No family is present. He is hemodynamically stable. CT angio chest was completed during his recent admission 06/22/18 and showed no evidence of PE. Urinalysis was completed and results are pending. Patient was diagnosed with E-coli urinary tract infection during his recent admission and this is noted to be sensitive to Rocephin. Patient received 1st dose in ED. His serum potassium is noted be low and 2.9. This was repleted in ED with 40 meq PO and 10 meq IV. Chest x-ray shows no acute process. EKG with nonspecific ST and T wave changes. Head CT with no acute intracranial findings. Patient is being admitted under the care of the hospitalist service. Patient update on day of discharge: 12-4 Follow-up for syncope, orthostatic hypotension, A. fib, tongue cancer. Patient is resting in bed. Denies any acute concerns. He is going for radiation therapy today. 12-5 Follow-up for syncope, orthostatic hypotension, A. fib, tongue cancer. Tolerating radiation therapy. No fever or chills. No n/v/d.c, Eating fairly well. The nurses tell me that he is not eating. 12-6 STILL GETTING RADIATION HERE TOLERATES IT WELL POOR APPETITE NO NEED FOR ADMISSION AT THIS TIME WILL DC TO SNF VS HOME CAN DO RADIATION THERAPY AN OUTPATIENT DOES NOT MEET REQUIREMENTS FOR INPATIENT ADMISSION DS: Diagnosis - Discharge Diagnosis (1) Delirium due to another medical condition Status: Chronic (2) Hypokalemia Status: Acute (3) Recurrent syncope Status: Chronic (4) Syncope Status: Chronic (5) Autonomic instability Status: Chronic (6) Hypertension Status: Chronic (7) Orthostatic hypotension Status: Chronic (8) Squamous cell cancer of tongue Status: Chronic (9) CAD (coronary artery disease) Status: Chronic (10) Depression Status: Chronic (11) Dyspnea Status: Chronic (12) Chronic kidney disease (CKD) Status: Chronic (13) Debility Status: Chronic (14) Paroxysmal atrial fibrillation with rapid ventricular response Status: Chronic DS: Summary Hospital Course: Chief Complaint: syncope History of Present Illness: Patient is a 77 year old male with a past medical history significant for atrial fibrillation on a/c with Eliquis, orthostatic hypotension/hypertension, squamous cell carcinoma of the tongue, prostate and throat cancer. Patient was recently admitted on 06/22/18 for syncope and orthostatic hypotension and discharged to a SNF on 07/02/18. He was evaluated by Cardiology during previous admissions and was noted to have labile hypertension with autonomic instability and orthostatic hypotension. He is currently being treated with Midodrine. Patient presents after experiencing a syncopal episode and shortness of breath during transfer with a Emiliana Lift [facility]. Patient was transferred to ED for further evaluation and treatment. He is a poor historian at time of evaluation. He is able to mumble that he is cold and to cover him up. He does follow verbal commands, however, does not answer when asked additional questions. No family is present. He is hemodynamically stable. CT angio chest was completed during his recent admission 06/22/18 and showed no evidence of PE. Urinalysis was completed and results are pending. Patient was diagnosed with E-coli urinary tract infection during his recent admission and this is noted to be sensitive to Rocephin. Patient received 1st dose in ED. His serum potassium is noted be low and 2.9. This was repleted in ED with 40 meq PO and 10 meq IV. Chest x-ray shows no acute process. EKG with nonspecific ST and T wave changes. Head CT with no acute intracranial findings. Patient is being admitted under the care of the hospitalist service. Diagnosis (1) Paroxysmal atrial fibrillation: (2) Syncope due to autonomic failure: (3) Urinary tract infection: (4) Hypokalemia: (5) Dehydration: (6) Squamous cell cancer of tongue: (7) CKD (chronic kidney disease): (8) Physical debility: 12-4 Follow-up for syncope, orthostatic hypotension, A. fib, tongue cancer. Patient is resting in bed. Denies any acute concerns. He is going for radiation therapy today. 12-5 Follow-up for syncope, orthostatic hypotension, A. fib, tongue cancer. Tolerating radiation therapy. No fever or chills. No n/v/d.c, Eating fairly well. The nurses tell me that he is not eating. 12-6 STILL GETTING RADIATION HERE TOLERATES IT WELL POOR APPETITE NO NEED FOR ADMISSION AT THIS TIME WILL DC TO SNF VS HOME CAN DO RADIATION THERAPY AN OUTPATIENT DOES NOT MEET REQUIREMENTS FOR INPATIENT ADMISSION - Time Spent with Patient Total time spent providing and/or coordinating discharge services: Greater than 30 minutes - Quality: VTE Deep Vein Thrombosis/Pulmonary Embolism Present on Admission: No Exam Vital signs: Vital Signs 07/25/18 16:00 07/25/18 20:00 07/26/18 00:00 Temperature 97.9 F 98.2 F 98.1 F Pulse Rate 56 L 76 77 Respiratory Rate 18 19 17 Blood Pressure 175/83 H 100/90 154/99 H Pulse Oximetry 98 93 L 95 07/26/18 04:00 07/26/18 08:00 07/26/18 12:00 Temperature 98.4 F 97.8 F 98.2 F Pulse Rate 73 75 77 Respiratory Rate 16 17 18 Blood Pressure 149/90 H 135/84 143/83 H Pulse Oximetry 94 L 96 99 Intake & Output 07/25/18 07/26/18 07/26/18 18:59 06:59 18:59 Intake Total 120 / 120 100 / 100 Balance 120 / 120 100 / 100 Weight 76.4 kg Intake: Oral 120 / 120 100 / 100 Other: # Voids 2 # Incontinent Voids 3 Date of Last Bowel Movement 07/24/18 07/25/18 # Bowel Movements 1 # Incontinent Bowel Movements 2 Narrative: GENERAL: Alert, NAD CARDIOVASCULAR: Regular rate and rhythm without murmurs, gallops, or rubs. RESPIRATORY: Breath sounds equal bilaterally. No accessory muscle use. GASTROINTESTINAL: Abdomen soft, non-tender, nondistended. MUSCULOSKELETAL: No cyanosis, or edema. BACK: Nontender without obvious deformity. No CVA tenderness. Results Procedures completed during hospitalization: RADIATION THERAPY Completed studies during hospitalization: Laboratory Results WBC 7.5 th/mm3 (4.0-11.0) 07/18/18 06:56 RBC 3.09 mil/mm3 (4.50-5.90) L 07/18/18 06:56 Hgb 10.3 gm/dL (13.0-17.0) L 07/18/18 06:56 POC Hgb (Calc) 9.5 g/dL (13.0-17.0) L 07/15/18 08:45 Hct 29.8 % (39.0-51.0) L 07/18/18 06:56 POC Hct 28.0 % (39-51.0) L 07/15/18 08:45 MCV 96.3 fL (80.0-100.0) 07/18/18 06:56 MCH 33.2 pg (27.0-34.0) 07/18/18 06:56 MCHC 34.5 % (32.0-36.0) 07/18/18 06:56 RDW 16.0 % (11.6-17.2) 07/18/18 06:56 Plt Count 308 th/mm3 (150-450) 07/18/18 06:56 MPV 6.5 fL (7.0-11.0) L 07/18/18 06:56 Neut % (Auto) 64.3 % (16.0-70.0) 07/18/18 06:56 Lymph % (Auto) 25.8 % (9.0-44.0) 07/18/18 06:56 [place] % (Auto) 9.7 % (0.0-8.0) H 07/18/18 06:56 Eos % (Auto) 0.0 % (0.0-4.0) 07/18/18 06:56 Baso % (Auto) 0.2 % (0.0-2.0) 07/18/18 06:56 Neut # (Auto) 4.8 th/mm3 (1.8-7.7) 07/18/18 06:56 Lymph # (Auto) 1.9 th/mm3 (1.0-4.8) 07/18/18 06:56 [place] # (Auto) 0.7 th/mm3 (0.0-0.9) 07/18/18 06:56 Eos # (Auto) 0.0 th/mm3 (0.0-0.4) 07/18/18 06:56 Baso # (Auto) 0.0 th/mm3 (0.0-0.2) 07/18/18 06:56 WBC Differential . 07/18/18 06:56 Differential Comment Auto diff final 07/18/18 06:56 PT 11.2 sec (9.8-11.6) 07/15/18 08:45 INR 1.1 Ratio 07/15/18 08:45 APTT 30.2 sec (23.4-31.7) 07/15/18 08:45 Fibrinogen 446 mg/dL (227-377) H 07/15/18 08:45 POC Sodium 140 mmol/L (137-144) 07/15/18 08:45 Sodium 142 meq/L (136-145) 07/18/18 06:56 POC Potassium 3.5 mmol/L (3.6-5.0) L 07/15/18 08:45 Potassium 4.0 meq/L (3.5-5.1) 07/18/18 06:56 POC Chloride 97 mmol/L (102-111) L 07/15/18 08:45 Chloride 105 meq/L (98-107) 07/18/18 06:56 Carbon Dioxide 33.6 meq/L (21.0-32.0) H 07/18/18 06:56 Anion Gap 3 meq/L (5-15) L 07/18/18 06:56 POC BUN 11 mg/dL (5-21) 07/15/18 08:45 BUN 14 mg/dL (7-18) 07/18/18 06:56 Creatinine 0.95 mg/dL (0.60-1.30) 07/18/18 06:56 POC Creatinine 0.8 mg/dL (0.6-1.3) 07/15/18 08:45 Estimated GFR 77 mL/min (>89) L 07/18/18 06:56 POC Glucose 123 mg/dL (68-110) H 07/15/18 08:45 Random Glucose 114 mg/dL (74-106) H 07/18/18 06:56 Calcium 8.3 mg/dL (8.5-10.1) L 07/18/18 06:56 Phosphorus 2.8 mg/dL (2.5-4.9) 07/10/18 05:25 Magnesium 1.8 mg/dL (1.5-2.5) 07/10/18 05:25 Total Bilirubin 0.4 mg/dL (0.2-1.0) 07/18/18 06:56 AST 12 U/L (15-37) L 07/18/18 06:56 ALT 17 U/L (12-78) 07/18/18 06:56 Alkaline Phosphatase 110 U/L (45-117) 07/18/18 06:56 Total Creatine Kinase 24 U/L (39-308) L 07/15/18 08:45 Troponin I Less than 0.02 ng/mL (0.02-0.05) L 07/15/18 08:45 Total Protein 5.9 g/dL (6.4-8.2) L 07/18/18 06:56 Albumin 2.3 g/dL (3.4-5.0) L 07/18/18 06:56 Urine Color Yellow (Yellw/Straw) 07/03/18 15:30 Urine Clarity Hazy (Clear) H 07/03/18 15:30 Urine pH 6.0 (5.0-8.5) 07/03/18 15:30 Ur Specific [place] 1.016 (1.002-1.035) 07/03/18 15:30 Urine Protein 30 mg/dL (Neg-Trace) H 07/03/18 15:30 Urine Glucose (UA) Negative mg/dL (Negative) 07/03/18 15:30 Urine Ketones Trace mg/dL (Negative) H 07/03/18 15:30 Urine Occult Blood Small (Negative) H 07/03/18 15:30 Urine Nitrate Negative (Negative) 07/03/18 15:30 Urine Bilirubin Negative (Negative) 07/03/18 15:30 Urine Urobilinogen 2.0 mg/dL (Less than 2) H 07/03/18 15:30 Ur Leukocyte Esterase Moderate (Negative) H 07/03/18 15:30 Urine RBC 7 /hpf (0-3) H 07/03/18 15:30 Urine WBC 42 /hpf (0-5) H 07/03/18 15:30 Urine WBC Clumps Few (None) H 07/03/18 15:30 Amorphous Sediment Rare /hpf (None) H 07/03/18 15:30 Urine Bacteria Few /hpf (None) H 07/03/18 15:30 Hyaline Casts 8 /lpf (0-3) 07/03/18 15:30 Urine Mucus Few /lpf (Occasional) H 07/03/18 15:30 Micro UA Comment Cath-culture ind 07/03/18 15:30 Ur Microscopic Review Not Reportable 07/03/18 15:30 Urine Culture Comments Cath-cult indicated 07/03/18 15:30 Blood Type A Negative 07/15/18 08:45 Antibody Screen Negative 07/15/18 08:45 Impressions Chest X-Ray 07/03/18 14:38 CONCLUSION: Negative examination. Cervical Spine MRI 07/15/18 00:00 CONCLUSION: 1. Degenerative spondylosis of the lower cervical spine most prominently at C5- 6 and C6-7 with moderate central canal narrowing at C5-6. 2. Mild right-sided neural foraminal narrowing at C4-5 and C6-7 without impingement. Head MRI 07/15/18 00:00 CONCLUSION: 1. No acute intracranial abnormality. No abnormalities seen on the diffusion- weighted images to suggest acute infarction. 2. Age-related atrophy and suspected small vessel ischemic change in the white matter. Head CT 07/15/18 08:49 CONCLUSION: 1. No acute areas of hemorrhage or mass effect are seen. 2. Atrophy. 3. Old lacunar infarct. Report was called by by Dr. Carlos to Dr. Serrano at 9:06 AM.] - Impressions ITS Impressions Chest X-Ray 07/03/18 14:38 CONCLUSION: Negative examination. Cervical Spine MRI 07/15/18 00:00 CONCLUSION: 1. Degenerative spondylosis of the lower cervical spine most prominently at C5- 6 and C6-7 with moderate central canal narrowing at C5-6. 2. Mild right-sided neural foraminal narrowing at C4-5 and C6-7 without impingement. Head MRI 07/15/18 00:00 CONCLUSION: 1. No acute intracranial abnormality. No abnormalities seen on the diffusion- weighted images to suggest acute infarction. 2. Age-related atrophy and suspected small vessel ischemic change in the white matter. Head CT 07/15/18 08:49 CONCLUSION: 1. No acute areas of hemorrhage or mass effect are seen. 2. Atrophy. 3. Old lacunar infarct. Report was called by by Dr. Carlos to Dr. Serrano at 9:06 AM.] Discharge Plan - Discharge Disposition Patient Disposition: Discharge to SNF - Discharge Condition Condition: Stable - Discharge Order Discharge Orders: Discharge Order (Routine); Ordered 07/26/18 Ordered By: Eliud Reyes Hospitalist Clear for Discharge (Routine); Ordered 07/26/18 Ordered By: Eliud Reyes - Discharge Details Anticipated Discharge Date: 07/26/18 Discharge Comment: DC TO SNF OR HOME - Physicians Team Primary Care Provider: UNKNOWN, Attending Provider: Eliud Reyes Other Providers: [facility],Agency ; Candy Richards MD ; Prakash Duke MD ; [facility],[place] ; Leobardo Serrano MD ; [facility] ; [facility] ; [facility]
[2018-07-26] MEDS: Montelukast 10 MG Tablet PO SCH (18:04)
[2018-07-27] MEDS: Metoclopramide 10 MG Tablet PO SCH ×4 (08:45→20:41)
[2018-07-27] MEDS: dilTIAZem CD 240 MG Capsule PO SCH (08:45)
[2018-07-27] MEDS: Nystatin/Diphenhydramine/Lidocaine Mouthwash (Adult) 120 ML Botttle SWISH-SWAL SCH ×4 (08:49→20:41)
--- NOTE | 2018-07-27 14:11 | P.PNIM ---
Subjective Interval history: 12-4 Follow-up for syncope, orthostatic hypotension, A. fib, tongue cancer. Patient is resting in bed. Denies any acute concerns. He is going for radiation therapy today. 12-5 Follow-up for syncope, orthostatic hypotension, A. fib, tongue cancer. Tolerating radiation therapy. No fever or chills. No n/v/d.c, Eating fairly well. The nurses tell me that he is not eating. 12-6 STILL GETTING RADIATION HERE TOLERATES IT WELL POOR APPETITE NO NEED FOR ADMISSION AT THIS TIME WILL DC TO SNF VS HOME CAN DO RADIATION THERAPY AN OUTPATIENT DOES NOT MEET REQUIREMENTS FOR INPATIENT ADMISSION 12- STILL GETTING RADIATION BLOOD PRESSURE WAS ELEVATED ADJUST BP MEDS ADD CATAPRES Physical Exam Vital signs: Vital Signs 07/26/18 16:00 07/26/18 20:00 07/27/18 00:00 Temperature 97.8 F 98 F 97.2 F L Pulse Rate 83 79 77 Respiratory Rate 18 17 17 Blood Pressure 153/77 H 157/106 H 149/100 H Pulse Oximetry 96 98 97 07/27/18 04:00 07/27/18 08:00 07/27/18 11:51 Temperature 98.2 F 97.4 F L 97.9 F Pulse Rate 74 70 75 Respiratory Rate 17 18 20 Blood Pressure 139/91 H 121/75 Pulse Oximetry 99 98 99 Intake & Output 07/26/18 07/27/18 07/27/18 18:59 06:59 18:59 Other: # Voids 1 # Urine Diapers 2 Date of Last Bowel Movement 07/26/18 07/26/18 # Bowel Movements 0 # Incontinent Bowel Movements 1 Narrative: GENERAL: Alert, NAD CARDIOVASCULAR: Regular rate and rhythm without murmurs, gallops, or rubs. RESPIRATORY: Breath sounds equal bilaterally. No accessory muscle use. GASTROINTESTINAL: Abdomen soft, non-tender, nondistended. MUSCULOSKELETAL: No cyanosis, or edema. BACK: Nontender without obvious deformity. No CVA tenderness. Results - Labs CBC & Chem 7: 07/18/18 06:56 07/18/18 06:56 - Imaging ITS Impressions Chest X-Ray 07/03/18 14:38 CONCLUSION: Negative examination. Cervical Spine MRI 07/15/18 00:00 CONCLUSION: 1. Degenerative spondylosis of the lower cervical spine most prominently at C5- 6 and C6-7 with moderate central canal narrowing at C5-6. 2. Mild right-sided neural foraminal narrowing at C4-5 and C6-7 without impingement. Head MRI 07/15/18 00:00 CONCLUSION: 1. No acute intracranial abnormality. No abnormalities seen on the diffusion- weighted images to suggest acute infarction. 2. Age-related atrophy and suspected small vessel ischemic change in the white matter. Head CT 07/15/18 08:49 CONCLUSION: 1. No acute areas of hemorrhage or mass effect are seen. 2. Atrophy. 3. Old lacunar infarct. Report was called by by Dr. Carlos to Dr. Serrano at 9:06 AM.] - Procedures RADIATION THERAPY Assessment and Plan - Assessment (1) Delirium due to another medical condition Code(s): F05 - Delirium due to known physiological condition Status: Chronic (2) Hypokalemia Code(s): E87.6 - Hypokalemia Status: Acute (3) Recurrent syncope Code(s): R55 - Syncope and collapse Status: Chronic (4) Syncope Code(s): R55 - Syncope and collapse Status: Chronic (5) Autonomic instability Code(s): G90.9 - Disorder of the autonomic nervous system, unspecified Status : Chronic (6) Hypertension Code(s): I10 - Essential (primary) hypertension Status: Chronic (7) Orthostatic hypotension Code(s): I95.1 - Orthostatic hypotension Status: Chronic (8) Squamous cell cancer of tongue Code(s): C02.9 - Malignant neoplasm of tongue, unspecified Status: Chronic (9) CAD (coronary artery disease) Code(s): I25.10 - Atherosclerotic heart disease of [place] coronary artery without angina pectoris Status: Chronic (10) Depression Code(s): F32.9 - Major depressive disorder, single episode, unspecified Status : Chronic (11) Dyspnea Code(s): R06.00 - Dyspnea, unspecified Status: Chronic (12) Chronic kidney disease (CKD) Code(s): N18.9 - Chronic kidney disease, unspecified Status: Chronic (13) Debility Code(s): R53.81 - Other malaise Status: Chronic (14) Paroxysmal atrial fibrillation with rapid ventricular response Code(s): I48.0 - Paroxysmal atrial fibrillation Status: Chronic - Plan Mr. Malhotra is a 77-year-old male with a history of A. fib, hypertension ,'s, cell carcinoma of the tongue, prostate and throat cancer who was admitted to the hospital due to possible syncopal episode as well as shortness of breath. 07/25/2018: Continue the same management. Continue supportive care. 07/27 ADJUST BP MEDS Syncope Orthostatic hypotension Hypertension -Currently on hydralazine 25 mg 3 times daily. Blood pressure is somewhat labile. Long-acting blood pressure medication such as amlodipine may be more helpful. PT recommends rehab Paroxysmal atrial fibrillation Continue apixaban 5 mg p.o. twice daily Continue Cardizem 240 mg p.o. daily History of squamous cell cancer of the tongue Patient is currently receiving radiation therapy. If SNF can be arranged, patient can likely continue radiation therapy from SNF. Depression Continue paroxetine 20 mg p.o. daily Full code. Apixaban. Code Status: FULL CODE Discussed Condition With: RN AND PT AND CM Discharge Planning: Discharge plan: Discussed with case management and nursing staff. Patient's daughter does not want to take patient home because she wants patient to stay in the hospital until radiation treatments are completed. Patient has been denied by multiple SNF. DC TO HOME OR SNF (4) Syncope Qualifiers: Syncope type: vasovagal syncope Qualified Code(s): R55 - Syncope and collapse (6) Hypertension Qualifiers: Hypertension type: essential hypertension Qualified Code(s): I10 - Essential (primary) hypertension (12) Chronic kidney disease (CKD) Qualifiers: Chronic kidney disease stage: stage 3 (moderate) Qualified Code(s): N18.3 - Chronic kidney disease, stage 3 (moderate)
[2018-07-27] MEDS: Montelukast 10 MG Tablet PO SCH (18:05)
[2018-07-28] MEDS: dilTIAZem CD 240 MG Capsule PO SCH (08:59)
[2018-07-28] MEDS: Metoclopramide 10 MG Tablet PO SCH ×4 (08:59→20:46)
[2018-07-28] MEDS: Nystatin/Diphenhydramine/Lidocaine Mouthwash (Adult) 120 ML Botttle SWISH-SWAL SCH ×4 (09:00→20:48)
--- NOTE | 2018-07-28 15:25 | P.PNIM ---
Subjective Interval history: 12-4 Follow-up for syncope, orthostatic hypotension, A. fib, tongue cancer. Patient is resting in bed. Denies any acute concerns. He is going for radiation therapy today. 12-5 Follow-up for syncope, orthostatic hypotension, A. fib, tongue cancer. Tolerating radiation therapy. No fever or chills. No n/v/d.c, Eating fairly well. The nurses tell me that he is not eating. 12-6 STILL GETTING RADIATION HERE TOLERATES IT WELL POOR APPETITE NO NEED FOR ADMISSION AT THIS TIME WILL DC TO SNF VS HOME CAN DO RADIATION THERAPY AN OUTPATIENT DOES NOT MEET REQUIREMENTS FOR INPATIENT ADMISSION 12- STILL GETTING RADIATION BLOOD PRESSURE WAS ELEVATED ADJUST BP MEDS ADD CATAPRES 12- HAVING DIARRHEA PER RN AM LABS DW RN AND PT AND FAMILY CONTINUE RADIATION NEEDS PLACEMENT HAVING [employer] FOR LUNCH AND EATING EVERYTHING Physical Exam Vital signs: Vital Signs 07/27/18 16:00 07/27/18 20:00 07/28/18 00:00 Temperature 97.9 F 97.8 F 97.3 F L Pulse Rate 76 66 61 Respiratory Rate 18 18 Blood Pressure 131/85 118/76 150/88 H Pulse Oximetry 99 98 96 07/28/18 04:00 07/28/18 08:00 07/28/18 12:00 Temperature 97.4 F L 98.2 F 98 F Pulse Rate 66 69 65 Respiratory Rate 18 18 16 Blood Pressure 148/85 H 155/91 H 152/86 H Pulse Oximetry 97 99 98 Intake & Output 07/27/18 07/28/18 07/28/18 18:59 06:59 18:59 Intake Total 240 / 240 240 / 240 Balance 240 / 240 240 / 240 Weight 76.3 kg Intake: Oral 240 / 240 240 / 240 Other: # Voids 3 # Incontinent Voids 1 Date of Last Bowel Movement 07/27/18 07/28/18 # Bowel Movements 5 3 Narrative: GENERAL: Alert, NAD CARDIOVASCULAR: Regular rate and rhythm without murmurs, gallops, or rubs. RESPIRATORY: Breath sounds equal bilaterally. No accessory muscle use. GASTROINTESTINAL: Abdomen soft, non-tender, nondistended. MUSCULOSKELETAL: No cyanosis, or edema. BACK: Nontender without obvious deformity. No CVA tenderness. Results - Labs CBC & Chem 7: 07/18/18 06:56 07/18/18 06:56 - Imaging ITS Impressions Chest X-Ray 07/03/18 14:38 CONCLUSION: Negative examination. Cervical Spine MRI 07/15/18 00:00 CONCLUSION: 1. Degenerative spondylosis of the lower cervical spine most prominently at C5- 6 and C6-7 with moderate central canal narrowing at C5-6. 2. Mild right-sided neural foraminal narrowing at C4-5 and C6-7 without impingement. Head MRI 07/15/18 00:00 CONCLUSION: 1. No acute intracranial abnormality. No abnormalities seen on the diffusion- weighted images to suggest acute infarction. 2. Age-related atrophy and suspected small vessel ischemic change in the white matter. Head CT 07/15/18 08:49 CONCLUSION: 1. No acute areas of hemorrhage or mass effect are seen. 2. Atrophy. 3. Old lacunar infarct. Report was called by by Dr. Carlos to Dr. Serrano at 9:06 AM.] - Procedures RADIATION THERAPY Assessment and Plan - Assessment (1) Delirium due to another medical condition Code(s): F05 - Delirium due to known physiological condition Status: Chronic (2) Hypokalemia Code(s): E87.6 - Hypokalemia Status: Acute (3) Recurrent syncope Code(s): R55 - Syncope and collapse Status: Chronic (4) Syncope Code(s): R55 - Syncope and collapse Status: Chronic (5) Autonomic instability Code(s): G90.9 - Disorder of the autonomic nervous system, unspecified Status : Chronic (6) Hypertension Code(s): I10 - Essential (primary) hypertension Status: Chronic (7) Orthostatic hypotension Code(s): I95.1 - Orthostatic hypotension Status: Chronic (8) Squamous cell cancer of tongue Code(s): C02.9 - Malignant neoplasm of tongue, unspecified Status: Chronic (9) CAD (coronary artery disease) Code(s): I25.10 - Atherosclerotic heart disease of [place] coronary artery without angina pectoris Status: Chronic (10) Depression Code(s): F32.9 - Major depressive disorder, single episode, unspecified Status : Chronic (11) Dyspnea Code(s): R06.00 - Dyspnea, unspecified Status: Chronic (12) Chronic kidney disease (CKD) Code(s): N18.9 - Chronic kidney disease, unspecified Status: Chronic (13) Debility Code(s): R53.81 - Other malaise Status: Chronic (14) Paroxysmal atrial fibrillation with rapid ventricular response Code(s): I48.0 - Paroxysmal atrial fibrillation Status: Chronic - Plan Mr. Malhotra is a 77-year-old male with a history of A. fib, hypertension ,'s, cell carcinoma of the tongue, prostate and throat cancer who was admitted to the hospital due to possible syncopal episode as well as shortness of breath. 07/25/2018: Continue the same management. Continue supportive care. 07/27 ADJUST BP MEDS Syncope Orthostatic hypotension Hypertension -Currently on hydralazine 25 mg 3 times daily. Blood pressure is somewhat labile. Long-acting blood pressure medication such as amlodipine may be more helpful. PT recommends rehab Paroxysmal atrial fibrillation Continue apixaban 5 mg p.o. twice daily Continue Cardizem 240 mg p.o. daily History of squamous cell cancer of the tongue Patient is currently receiving radiation therapy. If SNF can be arranged, patient can likely continue radiation therapy from SNF. Depression Continue paroxetine 20 mg p.o. daily DIARRHEA PER RN PATIENT WITH NO COMPLAINTS Full code. Apixaban. Code Status: FULL CODE Discussed Condition With: RN AND PT AND CM Discharge Planning: Discharge plan: Discussed with case management and nursing staff. Patient's daughter does not want to take patient home because she wants patient to stay in the hospital until radiation treatments are completed. Patient has been denied by multiple SNF. DC TO HOME OR SNF (4) Syncope Qualifiers: Syncope type: vasovagal syncope Qualified Code(s): R55 - Syncope and collapse (6) Hypertension Qualifiers: Hypertension type: essential hypertension Qualified Code(s): I10 - Essential (primary) hypertension (12) Chronic kidney disease (CKD) Qualifiers: Chronic kidney disease stage: stage 3 (moderate) Qualified Code(s): N18.3 - Chronic kidney disease, stage 3 (moderate)
[2018-07-28] MEDS: Diphenoxylate/Atropine 2.5/0.025 MG Tablet PO PRN (17:43)
[2018-07-28] MEDS: Montelukast 10 MG Tablet PO SCH (17:43)
[2018-07-28] MEDS: Lactobacillus Acidophilus/L. Spores Tablet PO SCH (17:43)
[2018-07-29 06:53] LABS: Baso % (Auto) 0.3 % (0.0-2.0); Hematocrit 33.4 % (39.0-51.0); Hemoglobin 11.2 gm/dL (13.0-17.0); Lymph # (Auto) 1.7 th/mm3 (1.0-4.8); Lymph % (Auto) 21.2 % (9.0-44.0); Mean Corpuscular HGB Conc 33.4 % (32.0-36.0); Mean Corpuscular Volume 95.8 fL (80.0-100.0); Mean Platelet Volume 6.8 fL (7.0-11.0); Mono # (Auto) 0.7 th/mm3 (0.0-0.9); Mono % (Auto) 8.8 % (0.0-8.0); Neut # (Auto) 5.7 th/mm3 (1.8-7.7); Neut % (Auto) 69.7 % (16.0-70.0); Platelet Count 268 th/mm3 (150-450); Red Blood Count 3.49 mil/mm3 (4.50-5.90); Red Cell Distribution Width 15.5 % (11.6-17.2); White Blood Count 8.1 th/mm3 (4.0-11.0)
[2018-07-29 07:15] LABS: INR 1.1 Ratio; Prothrombin Time 11.4 sec (9.8-11.6)
[2018-07-29 07:25] LABS: Albumin 2.5 g/dL (3.4-5.0); Anion Gap 5 meq/L (5-15); Aspartate Aminotransferase 9 U/L (15-37); Blood Urea Nitrogen 18 mg/dL (7-18); Calcium 8.3 mg/dL (8.5-10.1); Carbon Dioxide 30.8 meq/L (21.0-32.0); Chloride 105 meq/L (98-107); Glomerular Filtration Rate 82 mL/min (>89); Glucose,Random 98 mg/dL (74-106); Magnesium 1.9 mg/dL (1.5-2.5); Potassium 3.4 meq/L (3.5-5.1); Sodium 141 meq/L (136-145)
[2018-07-29 07:27] LABS: Alanine Aminotransferase 11 U/L (12-78)
[2018-07-29 07:36] LABS: Alkaline Phosphatase 103 U/L (45-117); Free T4 (Free Thyroxine) 1.15 ng/dL (0.76-1.46); Phosphorus 3.2 mg/dL (2.5-4.9); Thyroid Stimulating Hormone 0.439 uIU/mL (0.358-3.740); Total Protein 5.8 g/dL (6.4-8.2)
[2018-07-29] MEDS: Metoclopramide 10 MG Tablet PO SCH ×4 (08:42→20:13)
[2018-07-29] MEDS: dilTIAZem CD 240 MG Capsule PO SCH (08:42)
[2018-07-29] MEDS: Lactobacillus Acidophilus/L. Spores Tablet PO SCH ×3 (08:42→17:49)
[2018-07-29] MEDS: Nystatin/Diphenhydramine/Lidocaine Mouthwash (Adult) 120 ML Botttle SWISH-SWAL SCH ×4 (08:43→20:14)
[2018-07-29 11:49] LABS: Hemoglobin A1c 4.3 % (4.3-6.0)
[2018-07-29] MEDS: Diphenoxylate/Atropine 2.5/0.025 MG Tablet PO PRN (12:23)
--- NOTE | 2018-07-29 13:05 | P.PNIM ---
Subjective Interval history: Patient denies any acute issues today. He reports he is eating well. He denies any diarrhea today. Physical Exam Vital signs: Last Vital Signs Temp 98.1 F 07/29/18 12:00 Pulse 69 07/29/18 12:00 Resp 18 07/29/18 12:00 BP 134/96 H 07/29/18 12:00 Pulse Ox 96 07/29/18 12:00 Intake & Output 07/27/18 07/28/18 07/29/18 07/30/18 06:59 06:59 06:59 06:59 Intake Total 480 / 480 600 / 600 Balance 480 / 480 600 / 600 Weight 76.3 kg 76.3 kg Narrative: GENERAL: Alert, NAD CARDIOVASCULAR: Regular rate and rhythm without murmurs, gallops, or rubs. RESPIRATORY: Breath sounds equal bilaterally. No accessory muscle use. GASTROINTESTINAL: Abdomen soft, non-tender, nondistended. MUSCULOSKELETAL: No cyanosis, or edema. Results Labs CBC & Chem 7: 07/29/18 06:26 07/29/18 06:26 Procedures Procedures: RADIATION THERAPY Assessment and Plan (1) Delirium due to another medical condition: Code(s): F05 - Delirium due to known physiological condition Status: Chronic (2) Hypokalemia: Code(s): E87.6 - Hypokalemia Status: Acute (3) Recurrent syncope: Code(s): R55 - Syncope and collapse Status: Chronic (4) Syncope: Code(s): R55 - Syncope and collapse Status: Chronic (5) Autonomic instability: Code(s): G90.9 - Disorder of the autonomic nervous system, unspecified Status: Chronic (6) Hypertension: Code(s): I10 - Essential (primary) hypertension Status: Chronic (7) Orthostatic hypotension: Code(s): I95.1 - Orthostatic hypotension Status: Chronic (8) Squamous cell cancer of tongue: Code(s): C02.9 - Malignant neoplasm of tongue, unspecified Status: Chronic (9) CAD (coronary artery disease): Code(s): I25.10 - Atherosclerotic heart disease of [place] coronary artery without angina pectoris Status: Chronic (10) Depression: Code(s): F32.9 - Major depressive disorder, single episode, unspecified Status: Chronic (11) Dyspnea: Code(s): R06.00 - Dyspnea, unspecified Status: Chronic (12) Chronic kidney disease (CKD): Code(s): N18.9 - Chronic kidney disease, unspecified Status: Chronic (13) Debility: Code(s): R53.81 - Other malaise Status: Chronic (14) Paroxysmal atrial fibrillation with rapid ventricular response: Code(s): I48.0 - Paroxysmal atrial fibrillation Status: Chronic Plan 77-year-old male with a history of A. fib, hypertension,'s, cell carcinoma of the tongue, prostate and throat cancer who was admitted to the hospital due to possible syncopal episode as well as shortness of breath. Syncope Orthostatic hypotension Hypertension -Currently on hydralazine 25 mg 3 times daily. Blood pressure is somewhat labile. -Continue to monitor closely PT recommends rehab. Awaiting placement Paroxysmal atrial fibrillation Continue apixaban 5 mg p.o. twice daily Continue Cardizem 240 mg p.o. daily History of squamous cell cancer of the tongue Patient is currently receiving radiation therapy. If SNF can be arranged, patient can likely continue radiation therapy from SNF. Depression Continue paroxetine 20 mg p.o. daily Full code. Apixaban. Discharge Planning: Patient's daughter does not want to take patient home because she wants patient to stay in the hospital until radiation treatments are completed. Patient has been denied by multiple SNF. Progress Note: Quality VTE Deep Vein Thrombosis/Pulmonary Embolism Present on Admission: No _ (1) CAD (coronary artery disease) Qualifiers: Associated angina: Coronary Disease-Associated Artery/Lesion type: [place] vs. transplanted heart: (2) Depression Qualifiers: Active/Remission status: Depression Type: Major depression episode severity: Major depression recurrence: Psychotic features: Trimester: (3) Dyspnea Qualifiers: Dyspnea type: (4) Chronic kidney disease (CKD) Qualifiers: Chronic kidney disease stage: stage 3 (moderate) Qualified Code(s): N18.3 - Chronic kidney disease, stage 3 (moderate) (5) Syncope Qualifiers: Encounter type: Syncope type: vasovagal syncope Qualified Code(s): R55 - Syncope and collapse (6) Hypertension Qualifiers: Hypertension type: essential hypertension Qualified Code(s): I10 - Essential (primary) hypertension
[2018-07-29] MEDS: Montelukast 10 MG Tablet PO SCH (17:49)
[2018-07-30] MEDS: Diphenoxylate/Atropine 2.5/0.025 MG Tablet PO PRN (01:10)
[2018-07-30 08:44] LABS: Hemoglobin 10.8 gm/dL (13.0-17.0); Mean Corpuscular HGB Conc 33.9 % (32.0-36.0); Mean Corpuscular Hemoglobin 32.5 pg (27.0-34.0); Mean Corpuscular Volume 95.9 fL (80.0-100.0); Mean Platelet Volume 7.1 fL (7.0-11.0); Platelet Count 240 th/mm3 (150-450); Red Blood Count 3.33 mil/mm3 (4.50-5.90); Red Cell Distribution Width 15.7 % (11.6-17.2)
[2018-07-30 09:15] LABS: Anion Gap 7 meq/L (5-15); Blood Urea Nitrogen 17 mg/dL (7-18); Calcium 8.2 mg/dL (8.5-10.1); Carbon Dioxide 28.9 meq/L (21.0-32.0); Chloride 105 meq/L (98-107); Glomerular Filtration Rate Greater Than 89 mL/min (>89); Glucose,Random 115 mg/dL (74-106); Potassium 3.5 meq/L (3.5-5.1); Sodium 141 meq/L (136-145)
[2018-07-30] MEDS: dilTIAZem CD 240 MG Capsule PO SCH (09:17)
[2018-07-30] MEDS: Lactobacillus Acidophilus/L. Spores Tablet PO SCH ×3 (09:17→17:45)
[2018-07-30] MEDS: Nystatin/Diphenhydramine/Lidocaine Mouthwash (Adult) 120 ML Botttle SWISH-SWAL SCH ×4 (09:18→23:33)
[2018-07-30] MEDS: Metoclopramide 10 MG Tablet PO SCH ×4 (09:18→23:33)
--- NOTE | 2018-07-30 16:15 | P.PNIM ---
Subjective Interval history: Patient is inquiring about when he can go home. He does not understand why his daughter is not agreeable to letting him come home. SWETA RN. No acute issues overnight. Physical Exam Vital signs: Last Vital Signs Temp 98.3 F 07/30/18 12:00 Pulse 68 07/30/18 12:00 Resp 18 07/30/18 12:00 BP 128/87 07/30/18 12:00 Pulse Ox 97 07/30/18 12:00 Intake & Output 07/28/18 07/29/18 07/30/18 07/31/18 06:59 06:59 06:59 06:59 Intake Total 480 / 480 600 / 600 600 / 600 Balance 480 / 480 600 / 600 600 / 600 Weight 76.3 kg 76.3 kg 76.6 kg Narrative: GENERAL: Alert, NAD CARDIOVASCULAR: Regular rate and rhythm without murmurs, gallops, or rubs. RESPIRATORY: Breath sounds equal bilaterally. No accessory muscle use. GASTROINTESTINAL: Abdomen soft, non-tender, nondistended. MUSCULOSKELETAL: No cyanosis, or edema. NEURO: Alert and oriented to self and place but not time and situation. Able to move all extremities but has generalized weakness. Results Labs CBC & Chem 7: 07/30/18 07:38 07/30/18 07:38 Procedures Procedures: RADIATION THERAPY Assessment and Plan (1) Delirium due to another medical condition: Code(s): F05 - Delirium due to known physiological condition Status: Chronic (2) Hypokalemia: Code(s): E87.6 - Hypokalemia Status: Acute (3) Recurrent syncope: Code(s): R55 - Syncope and collapse Status: Chronic (4) Syncope: Code(s): R55 - Syncope and collapse Status: Chronic (5) Autonomic instability: Code(s): G90.9 - Disorder of the autonomic nervous system, unspecified Status: Chronic (6) Hypertension: Code(s): I10 - Essential (primary) hypertension Status: Chronic (7) Orthostatic hypotension: Code(s): I95.1 - Orthostatic hypotension Status: Chronic (8) Squamous cell cancer of tongue: Code(s): C02.9 - Malignant neoplasm of tongue, unspecified Status: Chronic (9) CAD (coronary artery disease): Code(s): I25.10 - Atherosclerotic heart disease of [place] coronary artery without angina pectoris Status: Chronic (10) Depression: Code(s): F32.9 - Major depressive disorder, single episode, unspecified Status: Chronic (11) Dyspnea: Code(s): R06.00 - Dyspnea, unspecified Status: Chronic (12) Chronic kidney disease (CKD): Code(s): N18.9 - Chronic kidney disease, unspecified Status: Chronic (13) Debility: Code(s): R53.81 - Other malaise Status: Chronic (14) Paroxysmal atrial fibrillation with rapid ventricular response: Code(s): I48.0 - Paroxysmal atrial fibrillation Status: Chronic Plan 77-year-old male with a history of A. fib, hypertension, squamous cell carcinoma of the tongue, prostate and throat cancer who was admitted to the hospital due to possible syncopal episode as well as shortness of breath. Syncope Orthostatic hypotension Hypertension Physical deconditioning -Currently on hydralazine 25 mg 3 times daily. Blood pressure is somewhat labile. -Continue to monitor closely PT recommends rehab. He needs placement but no accepting facility. 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 CM is following. Paroxysmal atrial fibrillation Continue apixaban 5 mg p.o. twice daily Continue Cardizem 240 mg p.o. daily History of squamous cell cancer of the tongue Patient is currently receiving radiation therapy. If SNF can be arranged, patient can likely continue radiation therapy from SNF. Depression Continue paroxetine 20 mg p.o. daily Full code. Apixaban. Discharge Planning: Patient's daughter does not want to take patient home because she wants him to stay in the hospital until radiation treatments are completed. Patient has been denied by multiple SNF. CM following. Progress Note: Quality VTE Deep Vein Thrombosis/Pulmonary Embolism Present on Admission: No _ (1) CAD (coronary artery disease) Qualifiers: Associated angina: Coronary Disease-Associated Artery/Lesion type: [place] vs. transplanted heart: (2) Depression Qualifiers: Active/Remission status: Depression Type: Major depression episode severity: Major depression recurrence: Psychotic features: Trimester: (3) Dyspnea Qualifiers: Dyspnea type: (4) Chronic kidney disease (CKD) Qualifiers: Chronic kidney disease stage: stage 3 (moderate) Qualified Code(s): N18.3 - Chronic kidney disease, stage 3 (moderate) (5) Syncope Qualifiers: Encounter type: Syncope type: vasovagal syncope Qualified Code(s): R55 - Syncope and collapse (6) Hypertension Qualifiers: Hypertension type: essential hypertension Qualified Code(s): I10 - Essential (primary) hypertension
[2018-07-30] MEDS: Montelukast 10 MG Tablet PO SCH (17:45)
[2018-07-31 06:00] LABS: Hematocrit 32.6 % (39.0-51.0); Mean Corpuscular HGB Conc 33.6 % (32.0-36.0); Mean Corpuscular Hemoglobin 31.8 pg (27.0-34.0); Mean Corpuscular Volume 94.7 fL (80.0-100.0); Mean Platelet Volume 7.1 fL (7.0-11.0); Platelet Count 247 th/mm3 (150-450); Red Blood Count 3.44 mil/mm3 (4.50-5.90); Red Cell Distribution Width 15.5 % (11.6-17.2); White Blood Count 8.4 th/mm3 (4.0-11.0)
[2018-07-31 06:28] LABS: Calcium 8.1 mg/dL (8.5-10.1); Carbon Dioxide 30.1 meq/L (21.0-32.0); Potassium 3.7 meq/L (3.5-5.1)
[2018-07-31] MEDS: dilTIAZem CD 240 MG Capsule PO SCH (09:21)
[2018-07-31] MEDS: Lactobacillus Acidophilus/L. Spores Tablet PO SCH ×3 (09:21→17:05)
[2018-07-31] MEDS: Metoclopramide 10 MG Tablet PO SCH ×4 (09:22→21:15)
[2018-07-31] MEDS: Nystatin/Diphenhydramine/Lidocaine Mouthwash (Adult) 120 ML Botttle SWISH-SWAL SCH ×4 (09:22→21:19)
--- NOTE | 2018-07-31 12:14 | P.PNIM ---
Subjective Interval history: Mildly confused. Reports that he is not any pain. He does not complain of any dysuria Physical Exam Vital signs: Last Vital Signs Temp 97.8 F 07/31/18 08:00 Pulse 62 07/31/18 08:00 Resp 16 07/31/18 08:00 BP 152/99 H 07/31/18 08:00 Pulse Ox 95 07/31/18 08:00 Intake & Output 07/29/18 07/30/18 07/31/18 08/01/18 06:59 06:59 06:59 06:59 Intake Total 600 / 600 600 / 600 Balance 600 / 600 600 / 600 Weight 76.3 kg 76.6 kg 79.9 kg Narrative: GENERAL: Well-nourished well-developed elderly male in no acute distress CARDIOVASCULAR: Regular rate and rhythm without murmurs, gallops, or rubs. RESPIRATORY: Breath sounds equal bilaterally. No accessory muscle use. GASTROINTESTINAL: Abdomen soft, non-tender, nondistended. Active bowel sounds MUSCULOSKELETAL: No cyanosis, or edema. NEURO: Alert and oriented to self and place but not time and situation. Able to move all extremities but has generalized weakness. Results Labs CBC & Chem 7: 07/31/18 04:17 07/31/18 04:17 Procedures Procedures: RADIATION THERAPY Assessment and Plan (1) Delirium due to another medical condition: Code(s): F05 - Delirium due to known physiological condition Status: Chronic (2) Hypokalemia: Code(s): E87.6 - Hypokalemia Status: Acute (3) Recurrent syncope: Code(s): R55 - Syncope and collapse Status: Chronic (4) Syncope: Code(s): R55 - Syncope and collapse Status: Chronic (5) Autonomic instability: Code(s): G90.9 - Disorder of the autonomic nervous system, unspecified Status: Chronic (6) Hypertension: Code(s): I10 - Essential (primary) hypertension Status: Chronic (7) Orthostatic hypotension: Code(s): I95.1 - Orthostatic hypotension Status: Chronic (8) Squamous cell cancer of tongue: Code(s): C02.9 - Malignant neoplasm of tongue, unspecified Status: Chronic (9) CAD (coronary artery disease): Code(s): I25.10 - Atherosclerotic heart disease of [place] coronary artery without angina pectoris Status: Chronic (10) Depression: Code(s): F32.9 - Major depressive disorder, single episode, unspecified Status: Chronic (11) Dyspnea: Code(s): R06.00 - Dyspnea, unspecified Status: Chronic (12) Chronic kidney disease (CKD): Code(s): N18.9 - Chronic kidney disease, unspecified Status: Chronic (13) Debility: Code(s): R53.81 - Other malaise Status: Chronic (14) Paroxysmal atrial fibrillation with rapid ventricular response: Code(s): I48.0 - Paroxysmal atrial fibrillation Status: Chronic Plan 77-year-old male with a history of A. fib, hypertension, squamous cell carcinoma of the tongue, prostate and throat cancer who was admitted to the hospital due to possible syncopal episode as well as shortness of breath. Syncope Orthostatic hypotension Hypertension Physical deconditioning -Currently on diltiazem, will add lisinopril to her regimen as blood pressure continues to be labile. -Continue to monitor closely PT recommends rehab. He needs placement but no accepting facility. 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 CM is following. Paroxysmal atrial fibrillation Continue apixaban 5 mg p.o. twice daily Continue Cardizem 240 mg p.o. daily History of squamous cell cancer of the tongue Patient is currently receiving radiation therapy. If SNF can be arranged, patient can likely continue radiation therapy from SNF. Depression Continue paroxetine 20 mg p.o. daily Foul-smelling urine per daughter at bedside todaycheck urinalysis DVT prophylaxis apixaban. Discharge Planning: Patient's daughter does not want to take patient home because she wants him to stay in the hospital until radiation treatments are completed. Patient has been denied by multiple SNF. CM following. Progress Note: Quality VTE Deep Vein Thrombosis/Pulmonary Embolism Present on Admission: No _ (1) Syncope Qualifiers: Encounter type: Syncope type: vasovagal syncope Qualified Code(s): R55 - Syncope and collapse (2) Hypertension Qualifiers: Hypertension type: essential hypertension Qualified Code(s): I10 - Essential (primary) hypertension (3) CAD (coronary artery disease) Qualifiers: Coronary Disease-Associated Artery/Lesion type: [place] vs. transplanted heart: Associated angina: (4) Depression Qualifiers: Depression Type: Major depression recurrence: Active/Remission status: Major depression episode severity: Psychotic features: Trimester: (5) Dyspnea Qualifiers: Dyspnea type: (6) Chronic kidney disease (CKD) Qualifiers: Chronic kidney disease stage: stage 3 (moderate) Qualified Code(s): N18.3 - Chronic kidney disease, stage 3 (moderate)
[2018-07-31] MEDS: Lisinopril 5 MG Tablet PO SCH (13:04)
[2018-07-31] MEDS: Montelukast 10 MG Tablet PO SCH (17:05)
[2018-07-31 19:38] LABS: Bilirubin,Urine Negative (Negative); Calcium Oxalate Crystals,Urine Rare /hpf; Clarity,Urine Clear (Clear); Color,Urine Yellow (Yellw/Straw); Glucose,Urine (UA) Negative (Negative); Leukocyte Esterase,Urine Negative (Negative); Mucus,Urine Few /lpf (Occasional); Nitrite,Urine Negative (Negative); Specific Gravity,Urine 1.018 (1.002-1.035); Squamous Epithelial Cell,Urine <1 /hpf (0-5)
[2018-08-01] MEDS: Lisinopril 5 MG Tablet PO SCH (08:47)
[2018-08-01] MEDS: Metoclopramide 10 MG Tablet PO SCH ×4 (08:47→21:00)
[2018-08-01] MEDS: dilTIAZem CD 240 MG Capsule PO SCH (08:47)
[2018-08-01] MEDS: Nystatin/Diphenhydramine/Lidocaine Mouthwash (Adult) 120 ML Botttle SWISH-SWAL SCH ×4 (08:48→21:00)
[2018-08-01] MEDS: Lactobacillus Acidophilus/L. Spores Tablet PO SCH ×3 (08:48→18:17)
--- NOTE | 2018-08-01 10:50 | P.PNIM ---
Subjective Interval history: No complaints overnight. Eating breakfast. No other concerns at this time. Physical Exam Vital signs: Last Vital Signs Temp 97.8 F 08/01/18 08:00 Pulse 56 L 08/01/18 08:00 Resp 16 08/01/18 08:00 BP 131/89 08/01/18 08:00 Pulse Ox 96 08/01/18 08:00 Intake & Output 07/30/18 07/31/18 08/01/18 08/02/18 06:59 06:59 06:59 06:59 Intake Total 600 / 600 340 / 340 Output Total 350 / 350 Balance 600 / 600 -10 / -10 Weight 76.6 kg 79.9 kg 78.4 kg Narrative: GENERAL: Well-nourished well-developed elderly male in no acute distress CARDIOVASCULAR: Regular rate and rhythm RESPIRATORY: Breath sounds equal bilaterally. No accessory muscle use. GASTROINTESTINAL: Abdomen soft, non-tender, nondistended. Active bowel sounds MUSCULOSKELETAL: No cyanosis, or edema. NEURO: Alert and oriented to self and place but not time and situation. Able to move all extremities but has generalized weakness. Results Labs CBC & Chem 7: 07/31/18 04:17 07/31/18 04:17 Procedures Procedures: RADIATION THERAPY Assessment and Plan (1) Delirium due to another medical condition: Code(s): F05 - Delirium due to known physiological condition Status: Chronic (2) Hypokalemia: Code(s): E87.6 - Hypokalemia Status: Acute (3) Recurrent syncope: Code(s): R55 - Syncope and collapse Status: Chronic (4) Syncope: Code(s): R55 - Syncope and collapse Status: Chronic (5) Autonomic instability: Code(s): G90.9 - Disorder of the autonomic nervous system, unspecified Status: Chronic (6) Hypertension: Code(s): I10 - Essential (primary) hypertension Status: Chronic (7) Orthostatic hypotension: Code(s): I95.1 - Orthostatic hypotension Status: Chronic (8) Squamous cell cancer of tongue: Code(s): C02.9 - Malignant neoplasm of tongue, unspecified Status: Chronic (9) CAD (coronary artery disease): Code(s): I25.10 - Atherosclerotic heart disease of [place] coronary artery without angina pectoris Status: Chronic (10) Depression: Code(s): F32.9 - Major depressive disorder, single episode, unspecified Status: Chronic (11) Dyspnea: Code(s): R06.00 - Dyspnea, unspecified Status: Chronic (12) Chronic kidney disease (CKD): Code(s): N18.9 - Chronic kidney disease, unspecified Status: Chronic (13) Debility: Code(s): R53.81 - Other malaise Status: Chronic (14) Paroxysmal atrial fibrillation with rapid ventricular response: Code(s): I48.0 - Paroxysmal atrial fibrillation Status: Chronic Plan 77-year-old male with a history of A. fib, hypertension, squamous cell carcinoma of the tongue, prostate and throat cancer who was admitted to the hospital due to possible syncopal episode as well as shortness of breath. Syncope Orthostatic hypotension Hypertension Physical deconditioning -Currently on diltiazem and lisinopril, blood pressure better controlled. -Continue to monitor closely PT recommends rehab. He needs placement but no accepting facility. 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 CM is following. Paroxysmal atrial fibrillation Continue apixaban 5 mg p.o. twice daily Continue Cardizem 240 mg p.o. daily History of squamous cell cancer of the tongue Patient is currently receiving radiation therapy. If SNF can be arranged, patient can likely continue radiation therapy from SNF. Depression Continue paroxetine 20 mg p.o. daily Foul-smelling urine per daughter at bedside todayurinalysis negative. DVT prophylaxis apixaban. Discharge Planning: Patient's daughter does not want to take patient home because she wants him to stay in the hospital until radiation treatments are completed. Patient has been denied by multiple SNF. CM following. Progress Note: Quality VTE Deep Vein Thrombosis/Pulmonary Embolism Present on Admission: No _ (1) Syncope Qualifiers: Encounter type: Syncope type: vasovagal syncope Qualified Code(s): R55 - Syncope and collapse (2) Hypertension Qualifiers: Hypertension type: essential hypertension Qualified Code(s): I10 - Essential (primary) hypertension (3) CAD (coronary artery disease) Qualifiers: Coronary Disease-Associated Artery/Lesion type: [place] vs. transplanted heart: Associated angina: (4) Depression Qualifiers: Depression Type: Major depression recurrence: Active/Remission status: Major depression episode severity: Psychotic features: Trimester: (5) Dyspnea Qualifiers: Dyspnea type: (6) Chronic kidney disease (CKD) Qualifiers: Chronic kidney disease stage: stage 3 (moderate) Qualified Code(s): N18.3 - Chronic kidney disease, stage 3 (moderate)
--- NOTE | 2018-08-01 13:34 | P.PNPSY ---
Subjective Remarks: The patient was seen today for psychiatric reevaluation. The patient is found with PT therapist exercising. On my psychiatric evaluation the patient is calm , reports to be in pain, a little bit irritable. He reports that he has severe back pain. Patient is quite confused, he says that he is in a rehabilitation program, in September 08, 2016. He tells me that the reason he is here is for back pain, unable to tell me underlying medical problems. Unable to recognize me from previous encounters. He has been taking his medications, no agitation, no aggressive behavior reported. He denies suicidal and homicidal ideation, denies visual and auditory hallucinations. Mental Status Examination Appearance: Appropriate Consciousness: Alert Orientation: Person Motor Activity: Abnormal gait Speech: Incoherent Language: Adequate Fund of Knowledge: Inadequate Attention and Concentration: Easily distracted Memory: Impaired Mood: Appropriate Affect: Flat Thought Process & Associations: Disorganized Thought Content: Thought blocking Hallucination Type: None Delusion Type: None Suicidal Ideation: No Suicidal Plan: No Suicidal Intention: No Homicidal Ideation: No Homicidal Plan: No Homicidal Intention: No Insight: Fair Judgment: Impulsive Assessment and Plan - Assessment (1) Delirium due to another medical condition Code(s): F05 - Delirium due to known physiological condition Status: Chronic (2) Paroxysmal atrial fibrillation with rapid ventricular response Code(s): I48.0 - Paroxysmal atrial fibrillation Status: Chronic - Plan Plan: Patient is confused, oriented in person, just partially oriented in place, disoriented in time. When able to tell me the reason of his hospitalization. He is in agreement with treatment, taking his medications, no agitation, no aggressive behavior. Given his level of confusion the patient would not have decision-making capacity at this moment to make medical decisions. Continue current psychotropic regimen. No admission indicated Justification for Continued Inpatient Stay: No admission indicated
[2018-08-01] MEDS: Montelukast 10 MG Tablet PO SCH (18:18)
--- NOTE | 2018-08-02 09:56 | P.PNIM ---
Subjective Interval history: He is sleepy and wakes up with voice and stimuli. He has no complaints. Physical Exam Vital signs: Last Vital Signs Temp 97.6 F 08/02/18 08:00 Pulse 66 08/02/18 08:00 Resp 14 08/02/18 08:00 BP 148/96 H 08/02/18 08:00 Pulse Ox 97 08/02/18 08:00 Intake & Output 07/31/18 08/01/18 08/02/18 08/03/18 06:59 06:59 06:59 06:59 Intake Total 340 / 340 1060 / 1060 Output Total 350 / 350 Balance -10 / -10 1060 / 1060 Weight 79.9 kg 78.4 kg 78.6 kg Narrative: GENERAL: Well-nourished well-developed elderly male in no acute distress CARDIOVASCULAR: Regular rate and rhythm RESPIRATORY: Breath sounds equal bilaterally. No accessory muscle use. GASTROINTESTINAL: Abdomen soft, non-tender, nondistended. Active bowel sounds MUSCULOSKELETAL: No cyanosis, or edema. NEURO: Sleepy and arousable to voice and stimuli Results Labs CBC & Chem 7: 07/31/18 04:17 07/31/18 04:17 Procedures Procedures: RADIATION THERAPY Assessment and Plan (1) Delirium due to another medical condition: Code(s): F05 - Delirium due to known physiological condition Status: Chronic (2) Hypokalemia: Code(s): E87.6 - Hypokalemia Status: Acute (3) Recurrent syncope: Code(s): R55 - Syncope and collapse Status: Chronic (4) Syncope: Code(s): R55 - Syncope and collapse Status: Chronic (5) Autonomic instability: Code(s): G90.9 - Disorder of the autonomic nervous system, unspecified Status: Chronic (6) Hypertension: Code(s): I10 - Essential (primary) hypertension Status: Chronic (7) Orthostatic hypotension: Code(s): I95.1 - Orthostatic hypotension Status: Chronic (8) Squamous cell cancer of tongue: Code(s): C02.9 - Malignant neoplasm of tongue, unspecified Status: Chronic (9) CAD (coronary artery disease): Code(s): I25.10 - Atherosclerotic heart disease of [place] coronary artery without angina pectoris Status: Chronic (10) Depression: Code(s): F32.9 - Major depressive disorder, single episode, unspecified Status: Chronic (11) Dyspnea: Code(s): R06.00 - Dyspnea, unspecified Status: Chronic (12) Chronic kidney disease (CKD): Code(s): N18.9 - Chronic kidney disease, unspecified Status: Chronic (13) Debility: Code(s): R53.81 - Other malaise Status: Chronic (14) Paroxysmal atrial fibrillation with rapid ventricular response: Code(s): I48.0 - Paroxysmal atrial fibrillation Status: Chronic Plan 77-year-old male with a history of A. fib, hypertension, squamous cell carcinoma of the tongue, prostate and throat cancer who was admitted to the hospital due to possible syncopal episode as well as shortness of breath. Continue current care. Syncope Orthostatic hypotension Hypertension Physical deconditioning -Currently on diltiazem and lisinopril, blood pressure better controlled. -Continue to monitor closely PT recommends rehab. He needs placement but no accepting facility. He would rather go home but his bowl topper/daughter wants him to stay in the Hospital until he finishes all cancer related treatment. CM is following. Paroxysmal atrial fibrillation Continue apixaban 5 mg p.o. twice daily Continue Cardizem 240 mg p.o. daily History of squamous cell cancer of the tongue Patient is currently receiving radiation therapy. If SNF can be arranged, patient can likely continue radiation therapy from SNF. Depression Continue paroxetine 20 mg p.o. daily DVT prophylaxis apixaban. Discharge Planning: Patient's daughter does not want to take patient home because she wants him to stay in the hospital until radiation treatments are completed. Patient has been denied by multiple SNF. CM following. Progress Note: Quality VTE Deep Vein Thrombosis/Pulmonary Embolism Present on Admission: No _ (1) Syncope Qualifiers: Encounter type: Syncope type: vasovagal syncope Qualified Code(s): R55 - Syncope and collapse (2) Hypertension Qualifiers: Hypertension type: essential hypertension Qualified Code(s): I10 - Essential (primary) hypertension (3) CAD (coronary artery disease) Qualifiers: Coronary Disease-Associated Artery/Lesion type: [place] vs. transplanted heart: Associated angina: (4) Depression Qualifiers: Depression Type: Major depression recurrence: Active/Remission status: Major depression episode severity: Psychotic features: Trimester: (5) Dyspnea Qualifiers: Dyspnea type: (6) Chronic kidney disease (CKD) Qualifiers: Chronic kidney disease stage: stage 3 (moderate) Qualified Code(s): N18.3 - Chronic kidney disease, stage 3 (moderate)
[2018-08-02] MEDS: dilTIAZem CD 240 MG Capsule PO SCH (10:24)
[2018-08-02] MEDS: Lactobacillus Acidophilus/L. Spores Tablet PO SCH ×3 (10:26→18:05)
[2018-08-02] MEDS: Nystatin/Diphenhydramine/Lidocaine Mouthwash (Adult) 120 ML Botttle SWISH-SWAL SCH ×4 (10:26→20:21)
[2018-08-02] MEDS: Lisinopril 5 MG Tablet PO SCH (10:27)
[2018-08-02] MEDS: Metoclopramide 10 MG Tablet PO SCH ×4 (10:27→20:13)
[2018-08-02] MEDS: Montelukast 10 MG Tablet PO SCH (18:06)
[2018-08-03] MEDS: dilTIAZem CD 240 MG Capsule PO SCH (08:49)
[2018-08-03] MEDS: Metoclopramide 10 MG Tablet PO SCH ×4 (08:49→20:25)
[2018-08-03] MEDS: Nystatin/Diphenhydramine/Lidocaine Mouthwash (Adult) 120 ML Botttle SWISH-SWAL SCH ×4 (08:49→20:27)
[2018-08-03] MEDS: Lisinopril 5 MG Tablet PO SCH (08:49)
[2018-08-03] MEDS: Lactobacillus Acidophilus/L. Spores Tablet PO SCH ×3 (08:49→17:26)
--- NOTE | 2018-08-03 09:50 | P.PNIM ---
Subjective Interval history: No changes overnight per nursing staff. Patient denies any complaints to me Physical Exam Vital signs: Last Vital Signs Temp 97.2 F L 08/03/18 04:00 Pulse 55 L 08/03/18 04:00 Resp 18 08/03/18 04:00 BP 128/73 08/03/18 04:00 Pulse Ox 94 L 08/03/18 04:00 Intake & Output 08/01/18 08/02/18 08/03/18 08/04/18 06:59 06:59 06:59 06:59 Intake Total 340 / 340 1060 / 1060 760 / 760 Output Total 350 / 350 1200 / 1200 Balance -10 / -10 1060 / 1060 -440 / -440 Weight 78.4 kg 78.6 kg 80.1 kg Narrative: GENERAL: Well-nourished well-developed elderly male in no acute distress sitting up eating breakfast CARDIOVASCULAR: Regular rate and rhythm RESPIRATORY: Breath sounds equal bilaterally. No accessory muscle use. GASTROINTESTINAL: Abdomen soft, non-tender, nondistended. Active bowel sounds MUSCULOSKELETAL: No cyanosis, or edema. NEURO: Alert oriented to person place but not to time or situation. Follows directions and move bilateral upper and lower treatment with generalized weakness Results Labs CBC & Chem 7: 07/31/18 04:17 07/31/18 04:17 Procedures Procedures: RADIATION THERAPY Assessment and Plan (1) Delirium due to another medical condition: Code(s): F05 - Delirium due to known physiological condition Status: Resolved (2) Hypokalemia: Code(s): E87.6 - Hypokalemia Status: Resolved (3) Recurrent syncope: Code(s): R55 - Syncope and collapse Status: Chronic (4) Syncope: Code(s): R55 - Syncope and collapse Status: Chronic (5) Autonomic instability: Code(s): G90.9 - Disorder of the autonomic nervous system, unspecified Status: Chronic (6) Hypertension: Code(s): I10 - Essential (primary) hypertension Status: Chronic (7) Orthostatic hypotension: Code(s): I95.1 - Orthostatic hypotension Status: Chronic (8) Squamous cell cancer of tongue: Code(s): C02.9 - Malignant neoplasm of tongue, unspecified Status: Chronic (9) CAD (coronary artery disease): Code(s): I25.10 - Atherosclerotic heart disease of [place] coronary artery without angina pectoris Status: Chronic (10) Depression: Code(s): F32.9 - Major depressive disorder, single episode, unspecified Status: Chronic (11) Dyspnea: Code(s): R06.00 - Dyspnea, unspecified Status: Chronic (12) Chronic kidney disease (CKD): Code(s): N18.9 - Chronic kidney disease, unspecified Status: Chronic (13) Debility: Code(s): R53.81 - Other malaise Status: Chronic (14) Paroxysmal atrial fibrillation with rapid ventricular response: Code(s): I48.0 - Paroxysmal atrial fibrillation Status: Chronic Plan 77-year-old male with a history of A. fib, hypertension, squamous cell carcinoma of the tongue, prostate and throat cancer who was admitted to the hospital due to possible syncopal episode as well as shortness of breath. Continue current care and physical therapy. Syncope Orthostatic hypotension Hypertension Physical deconditioning -Currently on diltiazem and lisinopril, blood pressure better controlled. -Continue to monitor closely PT recommends rehab. He needs placement but no accepting facility. He would rather go home but his distributing clerk/daughter wants him to stay in the Hospital until he finishes all cancer related treatment. CM is following. Paroxysmal atrial fibrillation Continue apixaban 5 mg p.o. twice daily Continue Cardizem 240 mg p.o. daily History of squamous cell cancer of the tongue Patient is currently receiving radiation therapy. If SNF can be arranged, patient can likely continue radiation therapy from SNF. Depression Continue paroxetine 20 mg p.o. daily DVT prophylaxis apixaban. Discharge Planning: Patient's daughter does not want to take patient home because she wants him to stay in the hospital until radiation treatments are completed. Patient has been denied by multiple SNF. CM following. Progress Note: Quality VTE Deep Vein Thrombosis/Pulmonary Embolism Present on Admission: No _ (1) Syncope Qualifiers: Encounter type: Syncope type: vasovagal syncope Qualified Code(s): R55 - Syncope and collapse (2) Hypertension Qualifiers: Hypertension type: essential hypertension Qualified Code(s): I10 - Essential (primary) hypertension (3) CAD (coronary artery disease) Qualifiers: Coronary Disease-Associated Artery/Lesion type: [place] vs. transplanted heart: Associated angina: (4) Depression Qualifiers: Depression Type: Major depression recurrence: Active/Remission status: Major depression episode severity: Psychotic features: Trimester: (5) Dyspnea Qualifiers: Dyspnea type: (6) Chronic kidney disease (CKD) Qualifiers: Chronic kidney disease stage: stage 3 (moderate) Qualified Code(s): N18.3 - Chronic kidney disease, stage 3 (moderate)
--- NOTE | 2018-08-03 12:00 | P.PNPAL ---
Reason for Visit Reason for visit: a. To assist with evaluation and management of symptoms including: pain, depression b. To assist medical decision maker(s) with: better understanding of current medical conditions; weighing benefits/burdens of medical treatment options; making medical treatment decisions. Subjective Subjective/Interval History: Follow up visit for symptom management of pain and depression as well as clarification of medical treatment goal. Patient seen and assessed in room 1423. Dual visit Ceci Acevedo, [facility]AC[facility] SERVICES REPRESENTATIVE. No family at bedside. Patient appears to be sleeping but arouses easily to verbal stimuli. Remains forgetfull, intermittently confused. He is responds to questions with 1-3 words answers. Able to follow simple 1 step commands. He reports pain in his left hip that is exacerbated by movement. Current orders for oxycodone 7.5mg PO q8 hours ATC. No recent lab work or imaging available. A healthcare surrogate designation form was completed on 04/30/2018 designating patient's grandson (Damien Leo) as the primary healthcare surrogate decision- maker. Daughter, Jillian Francis, is the alternate. Palliative care attempted to contact daughter, Jillian Francis ([phone]) and Elis Phillip ). Message left with Palliative Care contact information. Awaiting return phone call. Family has not responded to previous phone calls from Palliative Care. Family/Friend Interactions: See interval history Advance Directives Advance Directives Date on File: 04/30/18 Health Care Surrogate Name and Number: Damien Leo (grandson) [phone] Objective Vital Signs: Vital Signs 08/02/18 12:00 08/02/18 16:00 08/02/18 20:00 Temperature 97.1 F L 97.9 F 98.8 F Pulse Rate 65 68 64 Respiratory Rate 15 13 18 Blood Pressure 146/95 H 120/81 128/78 Pulse Oximetry 99 97 96 08/03/18 00:00 08/03/18 04:00 08/03/18 08:00 Temperature 98.5 F 97.2 F L 97.6 F Pulse Rate 66 55 L 60 Respiratory Rate 18 18 18 Blood Pressure 153/88 H 128/73 138/62 Pulse Oximetry 96 94 L 94 L Intake & Output 12/13/18 12/14/18 12/14/18 18:59 06:59 18:59 Intake Total 560 / 560 200 / 200 Output Total 600 / 600 600 / 600 Balance -40 / -40 -400 / -400 Weight 80.1 kg Intake: Oral 560 / 560 200 / 200 Output: Urine 600 / 600 600 / 600 Other: # Voids 2 Date of Last Bowel Movement 08/02/18 # Bowel Movements 1 Physical Exam: CONSTITUTIONAL/GENERAL: This is an adequately nourished patient, in no apparent distress. TUBES/LINES/DRAINS: PIV SKIN: No jaundice, rashes, or lesions. Ecchymoses on upper extremities. No wounds seen anteriorly. Skin temperature appropriate. Not diaphoretic. HEAD: Atraumatic. Normocephalic. EYES: Pupils equal and round and reactive. Extraocular motions intact. No scleral icterus. No injection or drainage. Fundi not examined. ENT: [place]. Nose without bleeding or purulent drainage. Oral mucosa moist NECK: Trachea midline. Supple, nontender. No palpable thyroid enlargement or nodularity. CARDIOVASCULAR: Regular rate and rhythm without murmurs, gallops, or rubs. No JVD. Peripheral pulses symmetric. RESPIRATORY/CHEST: Symmetric, unlabored respirations. Clear to auscultation. Breath sounds equal bilaterally. No wheezes, rales, or rhonchi. GASTROINTESTINAL: Abdomen soft, non-tender, nondistended. No guarding. Bowel sounds present. GENITOURINARY: Without palpable bladder distension. F MUSCULOSKELETAL: Extremities without clubbing, cyanosis, or edema. No mottling or clubbing. NEUROLOGICAL: Awake and alert. Somewhat confused but able to respond to routine questions and simple one-step commands PSYCHIATRIC: Mild anxiety noted. no apparent hallucinations or other psychotic thought process. Diagnostic Tests Laboratory: Laboratory Results - last 72 hr 07/31/18 18:45 Urine Color Yellow Urine Clarity Clear Urine pH 6.0 Ur Specific [place] 1.018 Urine Protein Negative Urine Glucose (UA) Negative Urine Ketones Negative Urine Occult Blood Negative Urine Nitrate Negative Urine Bilirubin Negative Urine Urobilinogen 2.0 H Ur Leukocyte Esterase Negative Urine WBC 1 Ur Squamous Epith Cells <1 Calcium Oxalate Crystal Rare H Urine Mucus Few H Micro UA Comment Culture not ind Ur Microscopic Review Not Reportable Urine Culture Comments Culture not ind Result Diagrams: 07/31/18 04:17 07/31/18 04:17 Microbiology: Microbiology 07/03/18 15:30 Catheterized Urine Urine Culture - Final No growth in 48 hours Imaging: Chest X-Ray 07/03/18 14:38 CONCLUSION: Negative examination. Cervical Spine MRI 07/15/18 00:00 CONCLUSION: 1. Degenerative spondylosis of the lower cervical spine most prominently at C5- 6 and C6-7 with moderate central canal narrowing at C5-6. 2. Mild right-sided neural foraminal narrowing at C4-5 and C6-7 without impingement. Head MRI 07/15/18 00:00 CONCLUSION: 1. No acute intracranial abnormality. No abnormalities seen on the diffusion- weighted images to suggest acute infarction. 2. Age-related atrophy and suspected small vessel ischemic change in the white matter. Head CT 07/15/18 08:49 CONCLUSION: 1. No acute areas of hemorrhage or mass effect are seen. 2. Atrophy. 3. Old lacunar infarct. Report was called by by Dr. Carlos to Dr. Serrano at 9:06 AM.] Assessment and Plan - Disease Oriented Problem List (1) Syncope due to autonomic failure (2) UTI (urinary tract infection) (3) Hypokalemia (4) Dehydration (5) Paroxysmal atrial fibrillation with rapid ventricular response (6) Squamous cell cancer of tongue Comment: = Currently undergoing radiation treatments. 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 He is a ; his of 57 years dies last year from breast cancer. He has 2 adult daughters and 4 grandchildren. Patient has been depressed since his ; denies suicidal ideation. He had a brother who committed suicide. Spiritual: Jew aminata Legal: Healthcare surrogate designation form was completed on 04/30/2018 designating grandson (Damien Garcia) as the primary healthcare surrogate decision-maker. Daughter (Jillian Francis) is designated as the alternate HCS. Multiple attempts have been made to reach both healthcare surrogate's without success. Message left for bharti Gillis. Ethical issues impacting care: No known ethical issues impacting care at this time. 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 He is having orthostatic hypotension , dysphagia, odynophagia, decreased PO intake with associated weight loss. Patient was undergoing receiving chemo with weekly cisplatin. Currently on radiation therapy which will be completed in August,. Prognosis guarded. Code Status: Full Code Plan: * FULL CODE * A healthcare surrogate designation form was completed on 04/30/2018 designating patient's grandson (Damien Leo) as the primary healthcare surrogate decision-maker. Daughter, Jillian Francis, is the alternate. * Psychiatry was reconsulted on 08/01/18 to determine capacity. Given ongoing confusion, patient remains incapacitated for medical decision-making. * Dual visit with Ceci Acevedo, [facility] PHARMACY SERVICES REPRESENTATIVE. * Patient has been denied by [facility] rehab, [facility], [facility], [facility], [facility] and [facility]. [facility], [facility] and [facility] and [facility]. Per conversation with Estevan Quigley (Case management) on 08/01/18, patient's daughter does not want any more referrals given to the SNFs because she wants her father to remain in the hospital until his cancer treatment is completed on August 27, 2018. * Palliative care attempted to contact daughter, Jillian Francis ([phone]) and Elis Phillip ([phone]). Message left with Palliative Care contact information. Awaiting return phone call. Family has not responded to previous phone calls from Palliative Care * Symptom management: Pain: Multifactoral. History of chronic back pain. Patient reporting pain in his right hip that is exacerbated with movement, grimacing when repositioning himself in bed. Patient was taking oxycodone to manage pain at home. Current orders for Oxycodone 7.5mg PO q8 hours ATC. Depression: Situational. Pt. lost his last year at this time. Psychiatry consulted for capacity; felt the patient did not have capacity for medical decision-making. Previously on fluoxetine 20mg daily-restarted 07/09/18. * Palliative care will continue to follow this patient throughout his hospitalization to establish trust, assist with symptom management and clarification of medical treatment goals.
[2018-08-03] MEDS: Montelukast 10 MG Tablet PO SCH (17:26)
[2018-08-04] MEDS: Metoclopramide 10 MG Tablet PO SCH ×4 (09:48→21:21)
--- NOTE | 2018-08-04 11:17 | P.PNIM ---
Subjective Interval history: Feels mildly nauseous. No abdominal pain. Vomited large amount of dark emesis this morning. Had a normal bowel movement last night. Physical Exam Vital signs: Last Vital Signs Temp 98.4 F 08/04/18 08:00 Pulse 71 08/04/18 08:00 Resp 18 08/04/18 08:00 BP 121/67 08/04/18 08:00 Pulse Ox 93 L 08/04/18 08:00 Intake & Output 08/02/18 08/03/18 08/04/18 08/05/18 06:59 06:59 06:59 06:59 Intake Total 1060 / 1060 760 / 760 1000 / 1000 Output Total 1200 / 1200 1600 / 1600 Balance 1060 / 1060 -440 / -440 -600 / -600 Weight 78.6 kg 80.1 kg 80.1 kg Narrative: GENERAL: Well-nourished well-developed elderly male in no acute distress CARDIOVASCULAR: Regular rate and rhythm RESPIRATORY: Breath sounds equal bilaterally. No accessory muscle use. GASTROINTESTINAL: Abdomen soft, non-tender, nondistended. Active bowel sounds MUSCULOSKELETAL: No cyanosis, or edema. NEURO: Alert oriented to person place but not to time or situation. Follows directions and move bilateral upper and lower treatment with generalized weakness Results Labs CBC & Chem 7: 07/31/18 04:17 07/31/18 04:17 Procedures Procedures: RADIATION THERAPY Assessment and Plan Plan 77-year-old male with a history of A. fib, hypertension, squamous cell carcinoma of the tongue, prostate and throat cancer who was admitted to the hospital due to possible syncopal episode as well as shortness of breath. Dark emesis this morningrule out underlying GI bleed. IV Protonix, check CBC , CMP and placed on clear liquid diet, start IV fluid hydration. IV Zofran, hold aspirin. We will hold morning Eliquis until lab work is reviewed. Syncope Orthostatic hypotension Hypertension Physical deconditioning -Currently on diltiazem and lisinopril, blood pressure better controlled. -Continue to monitor closely PT recommends rehab. He needs placement but no accepting facility. He would rather go home but his mattress specialist/daughter wants him to stay in the Hospital until he finishes all cancer related treatment. CM is following. Paroxysmal atrial fibrillation apixaban 5 mg p.o. twice daily, a.m. dose on hold secondary to large amount of dark emesis. Continue Cardizem 240 mg p.o. daily History of squamous cell cancer of the tongue Patient is currently receiving radiation therapy. If SNF can be arranged, patient can likely continue radiation therapy from SNF. Depression Continue paroxetine 20 mg p.o. daily DVT prophylaxis apixaban on hold due to dark emesis. Discharge Planning: Patient's daughter does not want to take patient home because she wants him to stay in the hospital until radiation treatments are completed. Patient has been denied by multiple SNF. CM following. Progress Note: Quality VTE Deep Vein Thrombosis/Pulmonary Embolism Present on Admission: No
[2018-08-04 13:37] LABS: Baso % (Auto) 0.2 % (0.0-2.0); Hematocrit 35.8 % (39.0-51.0); Hemoglobin 11.8 gm/dL (13.0-17.0); Lymph # (Auto) 0.6 th/mm3 (1.0-4.8); Lymph % (Auto) 3.9 % (9.0-44.0); Mean Corpuscular HGB Conc 32.9 % (32.0-36.0); Mean Corpuscular Hemoglobin 31.5 pg (27.0-34.0); Mean Corpuscular Volume 95.6 fL (80.0-100.0); Mean Platelet Volume 7.2 fL (7.0-11.0); Mono % (Auto) 6.6 % (0.0-8.0); Neut % (Auto) 89.3 % (16.0-70.0); Platelet Count 206 th/mm3 (150-450); Red Blood Count 3.74 mil/mm3 (4.50-5.90); Red Cell Distribution Width 15.3 % (11.6-17.2); White Blood Count 15.7 th/mm3 (4.0-11.0)
[2018-08-04] MEDS: Pantoprazole Inj 40 MG Vial IV.PUSH SCH ×2 (13:52→23:40)
[2018-08-04 13:58] LABS: Albumin 2.6 g/dL (3.4-5.0); Anion Gap 6 meq/L (5-15); Aspartate Aminotransferase 18 U/L (15-37); Blood Urea Nitrogen 18 mg/dL (7-18); Calcium 8.4 mg/dL (8.5-10.1); Carbon Dioxide 33.5 meq/L (21.0-32.0); Chloride 101 meq/L (98-107); Glomerular Filtration Rate 74 mL/min (>89); Glucose,Random 153 mg/dL (74-106); Potassium 4.1 meq/L (3.5-5.1); Sodium 140 meq/L (136-145)
[2018-08-04 13:59] LABS: Alanine Aminotransferase 17 U/L (12-78)
[2018-08-04] MEDS: KCL 10 mEq/D5W/NaCl 0.45% Inj 1,000 ML IV.CONT SCH (13:59)
[2018-08-04] MEDS: Lisinopril 5 MG Tablet PO SCH (13:59)
[2018-08-04 14:01] LABS: Alkaline Phosphatase 94 U/L (45-117)
[2018-08-04] MEDS: dilTIAZem CD 240 MG Capsule PO SCH (18:24)
[2018-08-04] MEDS: Lactobacillus Acidophilus/L. Spores Tablet PO SCH ×2 (18:25→18:32)
[2018-08-04] MEDS: Nystatin/Diphenhydramine/Lidocaine Mouthwash (Adult) 120 ML Botttle SWISH-SWAL SCH ×3 (18:27→21:00)
[2018-08-04] MEDS: Montelukast 10 MG Tablet PO SCH (18:34)
[2018-08-05] MEDS: KCL 10 mEq/D5W/NaCl 0.45% Inj 1,000 ML IV.CONT SCH ×4 (04:03→18:50)
[2018-08-05 09:00] LABS: Hematocrit 31.6 % (39.0-51.0); Hemoglobin 10.7 gm/dL (13.0-17.0); Mean Corpuscular HGB Conc 33.8 % (32.0-36.0); Mean Corpuscular Hemoglobin 32.1 pg (27.0-34.0); Mean Corpuscular Volume 95.1 fL (80.0-100.0); Mean Platelet Volume 7.5 fL (7.0-11.0); Platelet Count 187 th/mm3 (150-450); Red Blood Count 3.32 mil/mm3 (4.50-5.90); Red Cell Distribution Width 15.3 % (11.6-17.2); White Blood Count 8.6 th/mm3 (4.0-11.0)
[2018-08-05 09:21] LABS: Calcium 8.3 mg/dL (8.5-10.1); Carbon Dioxide 29.4 meq/L (21.0-32.0); Potassium 4.1 meq/L (3.5-5.1)
[2018-08-05] MEDS: dilTIAZem CD 240 MG Capsule PO SCH (09:36)
[2018-08-05] MEDS: Lactobacillus Acidophilus/L. Spores Tablet PO SCH ×3 (09:36→18:29)
[2018-08-05] MEDS: Lisinopril 5 MG Tablet PO SCH (09:36)
[2018-08-05] MEDS: Metoclopramide 10 MG Tablet PO SCH ×4 (09:36→22:47)
[2018-08-05] MEDS: Nystatin/Diphenhydramine/Lidocaine Mouthwash (Adult) 120 ML Botttle SWISH-SWAL SCH ×4 (09:42→22:48)
--- NOTE | 2018-08-05 11:01 | P.PNIM ---
Subjective Interval history: Nursing staff states that he has not had any further vomiting since yesterday morning. He has not had good appetite however tolerating clear liquids. He tells me he is not nauseated. There is no abdominal pain. He is sleepy this morning. Physical Exam Vital signs: Last Vital Signs Temp 97.3 F L 08/05/18 08:00 Pulse 75 08/05/18 08:00 Resp 18 08/05/18 08:00 BP 168/97 H 08/05/18 08:00 Pulse Ox 95 08/05/18 08:00 Intake & Output 08/03/18 08/04/18 08/05/18 08/06/18 06:59 06:59 06:59 06:59 Intake Total 760 / 760 1000 / 1000 1220 / 1220 Output Total 1200 / 1200 1600 / 1600 800 / 800 Balance -440 / -440 -600 / -600 420 / 420 Weight 80.1 kg 80.1 kg 78.5 kg Narrative: GENERAL: Well-nourished well-developed elderly male in no acute distress Sleepy but arousable with voice and stimuli CARDIOVASCULAR: Regular rate and rhythm RESPIRATORY: Breath sounds equal bilaterally. No accessory muscle use. GASTROINTESTINAL: Abdomen soft, non-tender, nondistended. Active bowel sounds MUSCULOSKELETAL: No cyanosis, or edema. NEURO: Sleepy but alert and oriented to self and place but not to time and situation follows directions and move bilateral upper and lower treatment with generalized weakness Results Labs CBC & Chem 7: 08/05/18 07:56 08/05/18 07:56 Procedures Procedures: RADIATION THERAPY Assessment and Plan Plan 77-year-old male with a history of A. fib, hypertension, squamous cell carcinoma of the tongue, prostate and throat cancer who was admitted to the hospital due to possible syncopal episode as well as shortness of breath. Episode of dark emesis yesterday morningrule out underlying GI bleed. No further vomiting since yesterday morning. IV Protonix, aspirin still on hold, hemoglobin has remained stable and Eliquis will be continued. Patient tolerating clear liquids will advance to full liquids and continue to monitor patient clinically. Syncope Orthostatic hypotension Hypertension Physical deconditioning -Currently on diltiazem and lisinopril, blood pressure better controlled. -Continue to monitor closely PT recommends rehab. He needs placement but no accepting facility. He would rather go home but his sample color maker/daughter wants him to stay in the Hospital until he finishes all cancer related treatment. CM is following. Paroxysmal atrial fibrillation apixaban 5 mg p.o. twice daily, Continue Cardizem 240 mg p.o. daily History of squamous cell cancer of the tongue Patient is currently receiving radiation therapy. If SNF can be arranged, patient can likely continue radiation therapy from SNF. Depression Continue paroxetine 20 mg p.o. daily Leukocytosis yesterday after emesis likely due to stress reaction is today's WBC is within normal limits. Will repeat labs in the morning. DVT prophylaxis apixaban on hold due to dark emesis. Discharge Planning: Patient's daughter does not want to take patient home because she wants him to stay in the hospital until radiation treatments are completed. Patient has been denied by multiple SNF. CM following. Progress Note: Quality VTE Deep Vein Thrombosis/Pulmonary Embolism Present on Admission: No
[2018-08-05] MEDS: Montelukast 10 MG Tablet PO SCH (18:26)
[2018-08-06] MEDS: KCL 10 mEq/D5W/NaCl 0.45% Inj 1,000 ML IV.CONT SCH (06:45)
[2018-08-06 09:14] LABS: Baso % (Auto) 0.3 % (0.0-2.0); Eos % (Auto) 0.1 % (0.0-4.0); Hematocrit 29.1 % (39.0-51.0); Hemoglobin 9.3 gm/dL (13.0-17.0); Lymph # (Auto) 0.9 th/mm3 (1.0-4.8); Lymph % (Auto) 15.8 % (9.0-44.0); Mean Corpuscular HGB Conc 32.1 % (32.0-36.0); Mean Corpuscular Hemoglobin 32.3 pg (27.0-34.0); Mean Corpuscular Volume 100.6 fL (80.0-100.0); Mono # (Auto) 0.5 th/mm3 (0.0-0.9); Mono % (Auto) 8.2 % (0.0-8.0); Neut # (Auto) 4.4 th/mm3 (1.8-7.7); Neut % (Auto) 75.6 % (16.0-70.0); Platelet Count 160 th/mm3 (150-450); Red Blood Count 2.89 mil/mm3 (4.50-5.90); Red Cell Distribution Width 15.8 % (11.6-17.2); White Blood Count 5.8 th/mm3 (4.0-11.0)
[2018-08-06] MEDS: Metoclopramide 10 MG Tablet PO SCH ×4 (09:49→20:11)
[2018-08-06] MEDS: dilTIAZem CD 240 MG Capsule PO SCH (09:49)
[2018-08-06] MEDS: Nystatin/Diphenhydramine/Lidocaine Mouthwash (Adult) 120 ML Botttle SWISH-SWAL SCH ×4 (09:50→20:10)
[2018-08-06] MEDS: Lactobacillus Acidophilus/L. Spores Tablet PO SCH ×3 (09:50→17:47)
[2018-08-06] MEDS: Lisinopril 5 MG Tablet PO SCH (09:50)
--- NOTE | 2018-08-06 10:42 | P.PNIM ---
Subjective Interval history: Reports he has no abdominal pain. He is not nauseous. He is tolerating his diet. He wants to eat more food. Physical Exam Vital signs: Last Vital Signs Temp 97.9 F 08/06/18 08:00 Pulse 62 08/06/18 08:00 Resp 19 08/06/18 08:00 BP 152/89 H 08/06/18 08:00 Pulse Ox 96 08/06/18 08:00 Intake & Output 08/04/18 08/05/18 08/06/18 08/07/18 06:59 06:59 06:59 06:59 Intake Total 1000 / 1000 1220 / 1220 3320 / 3320 Output Total 1600 / 1600 800 / 800 1850 / 1850 250 / 250 Balance -600 / -600 420 / 420 1470 / 1470 -250 / -250 Weight 80.1 kg 78.5 kg 80.5 kg Narrative: GENERAL: Well-nourished well-developed elderly male in no acute distress sitting up in the bed CARDIOVASCULAR: Regular rate and rhythm RESPIRATORY: Breath sounds equal bilaterally. No accessory muscle use. GASTROINTESTINAL: Abdomen soft, non-tender, nondistended. Active bowel sounds MUSCULOSKELETAL: No cyanosis, or edema. NEURO: alert and oriented to self and place but not to time and situation follows directions and move bilateral upper and lower treatment with generalized weakness Results Labs CBC & Chem 7: 08/06/18 07:20 08/05/18 07:56 Procedures Procedures: RADIATION THERAPY Assessment and Plan Plan 77-year-old male with a history of A. fib, hypertension, squamous cell carcinoma of the tongue, prostate and throat cancer who was admitted to the hospital due to possible syncopal episode as well as shortness of breath. Episode of dark emesis 08/04 amrule out underlying GI bleed. No further vomiting since the episode. IV Protonix, aspirin still on hold, hemoglobin has a slight mild drop, questionable dilution from IV fluids. Blood pressure continues to be stable. Eliquis will be continued until Hemoccult stool is evaluated.. Patient tolerating full liquids and advance to regular diet, continue to monitor patient clinically. Syncope Orthostatic hypotension Hypertension Physical deconditioning -Currently on diltiazem and lisinopril, blood pressure better controlled. -Continue to monitor closely PT recommends rehab. He needs placement but no accepting facility. He would rather go home but his spine supervisor/daughter wants him to stay in the Hospital until he finishes all cancer related treatment. CM is following. Paroxysmal atrial fibrillation apixaban 5 mg p.o. twice daily, Continue Cardizem 240 mg p.o. daily History of squamous cell cancer of the tongue Patient is currently receiving radiation therapy. If SNF can be arranged, patient can likely continue radiation therapy from SNF. Depression Continue paroxetine 20 mg p.o. daily Leukocytosis yesterday after emesis likely due to stress reaction nara's WBC is within normal limits. Will repeat labs in the morning. DVT prophylaxis apixaban Discharge Planning: Patient's daughter does not want to take patient home because she wants him to stay in the hospital until radiation treatments are completed. Patient has been denied by multiple SNF. CM following. Progress Note: Quality VTE Deep Vein Thrombosis/Pulmonary Embolism Present on Admission: No
[2018-08-06 11:56] LABS: Anion Gap 5 meq/L (5-15); Blood Urea Nitrogen 12 mg/dL (7-18); Carbon Dioxide 33.5 meq/L (21.0-32.0); Chloride 102 meq/L (98-107); Glomerular Filtration Rate Greater Than 89 mL/min (>89); Glucose,Random 111 mg/dL (74-106); Potassium 3.3 meq/L (3.5-5.1); Sodium 140 meq/L (136-145)
--- NOTE | 2018-08-06 15:03 | P.DS ---
DS: Providers Date of admission: 07/03/18 17:16 Primary care physician: UNKNOWN Consults: 07/05/18 15:50 HUB Only Consult Order Routine Consulting Provider: [facility],Agency 07/09/18 09:52 Consult to Palliative Care Routine Consulting Provider: Candy Richards Reason for Consultation: SCC of the tongue on radiation, has chronic pain, agitation, depression, please assist with symptomatic management and goals of care Notified:: Service Spoke with:: JULIUS Date Notified:: 07/09/18 Time Notified:: 10:01 Ordering Provider: NIRANJAN 07/09/18 16:50 Consult to Psychiatry Routine Consulting Provider: Prakash Duke Reason for Consultation: Capacity for medical decision making and recommendations for management of depression Notified:: Office Spoke with:: CHANDRIKA Date Notified:: 07/09/18 Time Notified:: 16:55 Ordering Provider: ALLIE 07/10/18 11:14 HUB Only Consult Order Routine Consulting Provider: Lillie Larson,Agency 07/15/18 08:58 Consult to Neurology Stat Consulting Provider: Leobardo Serrano For STAT consult, spoke directly to:: DR. SERRANO Reason for Consultation: Brain Attack Notified:: Service Spoke with:: Mariel Date Notified:: 07/15/18 Time Notified:: 09:09 Ordering Provider: TIMMY 07/19/18 09:17 HUB Only Consult Order Routine Consulting Provider: [facility] 07/19/18 09:39 HUB Only Consult Order Routine Consulting Provider: [facility] 07/19/18 10:09 HUB Only Consult Order Routine Consulting Provider: [facility],Agency 08/01/18 13:09 Consult to Psychiatry Routine Consulting Provider: Prakash Duke Patient known to:: Prakash Duke Reason for Consultation: Re-evaluate patient to determine capacity for medical decisionmaking Notified:: Office Spoke with:: JOSHUA Date Notified:: 08/01/18 Time Notified:: 13:14 Ordering Provider: ALLIE Brief History from admission: Patient is a 77 year old male with a past medical history significant for atrial fibrillation on a/c with Eliquis, orthostatic hypotension/hypertension, squamous cell carcinoma of the tongue, prostate and throat cancer. Patient was recently admitted on 06/22/18 for syncope and orthostatic hypotension and discharged to a SNF on 07/02/18. He was evaluated by Cardiology during previous admissions and was noted to have labile hypertension with autonomic instability and orthostatic hypotension. He is currently being treated with Midodrine. Patient presents after experiencing a syncopal episode and shortness of breath during transfer with a Emiliana Lift at [facility]. Patient was transferred to ED for further evaluation and treatment. He is a poor historian at time of evaluation. He is able to mumble that he is cold and to cover him up. He does follow verbal commands, however, does not answer when asked additional questions. No family is present. He is hemodynamically stable. CT angio chest was completed during his recent admission 06/22/18 and showed no evidence of PE. Urinalysis was completed and results are pending. Patient was diagnosed with E-coli urinary tract infection during his recent admission and this is noted to be sensitive to Rocephin. Patient received 1st dose in ED. His serum potassium is noted be low and 2.9. This was repleted in ED with 40 meq PO and 10 meq IV. Chest x-ray shows no acute process. EKG with nonspecific ST and T wave changes. Head CT with no acute intracranial findings. Patient is being admitted under the care of the hospitalist service. DS: Diagnosis Discharge Diagnosis (1) Syncope due to autonomic failure: Status: Acute Diagnosis: Principal (2) Orthostatic hypotension: Status: Chronic Diagnosis: Secondary (3) Paroxysmal atrial fibrillation with rapid ventricular response: Status: Chronic Diagnosis: Secondary (4) Squamous cell cancer of tongue: Status: Chronic Diagnosis: Secondary DS: Summary 77-year-old white male with a history of atrial fibrillation, hypertension, squamous cell carcinoma of the tongue, prostate and throat cancer who was admitted to the hospital due to possible syncope episode and was placed on diltiazem and Midrin. He is tolerating his diet. He continues to be on a apixaban for his chronic paroxysmal atrial fibrillation. For his history of squamous cell cancer of the tongue he is currently receiving radiation treatment. He is on paroxetine for depression. At this time, family would like to transition him to inpatient hospice with continued radiation treatment. Time Spent with Patient Total time spent providing and/or coordinating discharge services: Less than 30 minutes Quality: VTE Deep Vein Thrombosis/Pulmonary Embolism Present on Admission: No Exam Narrative Exam Narrative: GENERAL: This is a well-nourished, well-developed patient, in no apparent distress. CARDIOVASCULAR: Regular rate and rhythm RESPIRATORY: Clear to auscultation. Breath sounds equal bilaterally. No wheezes , rales, or rhonchi. GASTROINTESTINAL: Abdomen soft, non-tender, nondistended. Normal active bowel sounds MUSCULOSKELETAL: Extremities without clubbing, cyanosis, or edema. NEURO: Alert to person and place but not to time or situation moves all ext x4 with generalized weakness Results Procedures completed during hospitalization: RADIATION THERAPY Labs on day of discharge: Labs from last 24 hours 08/06/18 08/06/18 10:38 07:20 WBC 5.8 RBC 2.89 L Hgb 9.3 L Hct 29.1 L MCV 100.6 H D MCH 32.3 MCHC 32.1 RDW 15.8 Plt Count 160 MPV 8.0 Neut % (Auto) 75.6 H Lymph % (Auto) 15.8 [place] % (Auto) 8.2 H Eos % (Auto) 0.1 Baso % (Auto) 0.3 Neut # (Auto) 4.4 Lymph # (Auto) 0.9 L [place] # (Auto) 0.5 Eos # (Auto) 0.0 Baso # (Auto) 0.0 WBC Differential . Differential Comment Auto diff final Sodium 140 Potassium 3.3 L D Chloride 102 Carbon Dioxide 33.5 H Anion Gap 5 BUN 12 Creatinine 0.77 Estimated GFR Greater than 89 Random Glucose 111 H Calcium 8.0 L Impressions ITS Impressions Chest X-Ray 07/03/18 14:38 CONCLUSION: Negative examination. Cervical Spine MRI 07/15/18 00:00 CONCLUSION: 1. Degenerative spondylosis of the lower cervical spine most prominently at C5- 6 and C6-7 with moderate central canal narrowing at C5-6. 2. Mild right-sided neural foraminal narrowing at C4-5 and C6-7 without impingement. Head MRI 07/15/18 00:00 CONCLUSION: 1. No acute intracranial abnormality. No abnormalities seen on the diffusion- weighted images to suggest acute infarction. 2. Age-related atrophy and suspected small vessel ischemic change in the white matter. Head CT 07/15/18 08:49 CONCLUSION: 1. No acute areas of hemorrhage or mass effect are seen. 2. Atrophy. 3. Old lacunar infarct. Report was called by by Dr. Carlos to Dr. Serrano at 9:06 AM.] Discharge Plan Discharge Disposition Patient Disposition: 51 Hospice/Med Facility Discharge Condition Condition: Stable Discharge Order Discharge Orders: Discharge Order (Routine); Ordered 07/26/18 Ordered By: Eliud Reyes Hospitalist Clear for Discharge (Routine); Ordered 07/26/18 Ordered By: Eliud Reyes Discharge Details Anticipated Discharge Date: 07/26/18 Physicians Team Primary Care Provider: UNKNOWN, Attending Provider: Mag Mckee Other Providers: [facility],Agency ; Candy Richards ; Prakash Duke ; [facility],Agency ; Leobardo Serrano ; [facility],[place] ; [facility],Ag[facility] ; [facility] Rxs /Orders / Referrals /Forms Prescriptions: New acetaminophen 325 mg Tablet 650 mg PO Q4H PRN (Reason: Temp > 100.4/WADE) RF: 0 lactulose 20 gram/30 mL Solution 30 ml PO DAILY PRN (Reason: Severe Consitipation) RF: 0 paroxetine HCl 20 mg Tablet 20 mg PO DAILY RF: 0 potassium chloride 20 mEq Tablet,Er Particles/Crystals 20 meq PO DAILY RF: 0 ondansetron 4 mg Tablet,Disintegrating 4 mg PO Q6H PRN (Reason: NAUSEA W/O VOMITING) Qty: 10 RF: 0 pantoprazole 40 mg Tablet,Delayed Release (Dr/Ec) 40 mg PO DAILY Qty: 30 RF: 0 polyvinyl alcohol [Artificial Tears (polyvin alc)] 1.4 % Drops 1 drop EACH EYE Q4H PRN (Reason: Discomfort) RF: 0 Continue midodrine 5 mg tablet 2.5 mg PO TID RF: 0 montelukast 10 mg Tablet 10 mg PO QPM RF: 0 metoclopramide HCl [Reglan] 10 mg Tablet 10 mg PO QID RF: 0 diltiazem HCl 240 mg Capsule,Extended Release 24hr 240 mg PO DAILY RF: 0 aspirin 81 mg Tablet,Chewable 81 mg PO DAILY RF: 0 apixaban [Eliquis] 5 mg Tablet 5 mg PO BID RF: 0 oxycodone 5 mg tablet 7.5 mg PO Q6H PRN (Reason: Pain 5-10) Qty: 15 RF: 0 Discontinued potassium chloride 10 mEq Capsule, Extended Release 10 meq PO BID RF: 0 butalbital-acetaminophen 50-325 mg Tablet 2 tab PO BID PRN (Reason: Pain, Moderate) RF: 0 escitalopram oxalate 20 mg Tablet 20 mg PO DAILY RF: 0 Referrals: UNKNOWN, [Primary Care Provider] - See Instructions (CONTINUE RADIATION SCHEDULED Follow up with hospice ) Discharge Instructions Patient Printed Instructions: Acetaminophen (By mouth) Status ED Status: Left Department
[2018-08-06] MEDS: Montelukast 10 MG Tablet PO SCH (17:49)
[2018-08-07 07:09] LABS: Baso % (Auto) 0.3 % (0.0-2.0); Eos % (Auto) 0.1 % (0.0-4.0); Hematocrit 30.8 % (39.0-51.0); Hemoglobin 10.3 gm/dL (13.0-17.0); Lymph # (Auto) 1.2 th/mm3 (1.0-4.8); Lymph % (Auto) 19.1 % (9.0-44.0); Mean Corpuscular HGB Conc 33.6 % (32.0-36.0); Mean Corpuscular Hemoglobin 31.9 pg (27.0-34.0); Mean Corpuscular Volume 94.9 fL (80.0-100.0); Mean Platelet Volume 7.4 fL (7.0-11.0); Mono # (Auto) 0.6 th/mm3 (0.0-0.9); Mono % (Auto) 9.9 % (0.0-8.0); Neut # (Auto) 4.6 th/mm3 (1.8-7.7); Neut % (Auto) 70.6 % (16.0-70.0); Platelet Count 184 th/mm3 (150-450); Red Blood Count 3.24 mil/mm3 (4.50-5.90); Red Cell Distribution Width 15.2 % (11.6-17.2); White Blood Count 6.5 th/mm3 (4.0-11.0)
[2018-08-07] MEDS: Metoclopramide 10 MG Tablet PO SCH ×4 (09:40→20:17)
[2018-08-07] MEDS: dilTIAZem CD 240 MG Capsule PO SCH ×2 (09:40→09:45)
[2018-08-07] MEDS: Lactobacillus Acidophilus/L. Spores Tablet PO SCH ×3 (09:40→17:25)
[2018-08-07] MEDS: Nystatin/Diphenhydramine/Lidocaine Mouthwash (Adult) 120 ML Botttle SWISH-SWAL SCH ×4 (09:41→20:17)
--- NOTE | 2018-08-07 12:40 | P.PNIM ---
Subjective Interval history: No complaints of nausea or vomiting. No abdominal pain. Physical Exam Vital signs: Last Vital Signs Temp 98.0 F 08/07/18 08:00 Pulse 65 08/07/18 08:00 Resp 16 08/07/18 08:00 BP 165/100 H 08/07/18 08:00 Pulse Ox 96 08/07/18 08:00 Intake & Output 08/05/18 08/06/18 08/07/18 08/08/18 06:59 06:59 06:59 06:59 Intake Total 1220 / 1220 3320 / 3320 791 / 791 Output Total 800 / 800 1850 / 1850 900 / 900 Balance 420 / 420 1470 / 1470 -109 / -109 Weight 78.5 kg 80.5 kg 80.5 kg Narrative: GENERAL: Well-nourished well-developed elderly male in no acute distress sitting up in the bed CARDIOVASCULAR: Regular rate and rhythm RESPIRATORY: Breath sounds equal bilaterally. No accessory muscle use. GASTROINTESTINAL: Abdomen soft, non-tender, nondistended. Active bowel sounds MUSCULOSKELETAL: No cyanosis, or edema. NEURO: alert and oriented to self and place but not to time and situation follows directions and move bilateral upper and lower treatment with generalized weakness Results Labs CBC & Chem 7: 08/07/18 05:47 08/06/18 10:38 Procedures Procedures: RADIATION THERAPY Assessment and Plan (1) Syncope due to autonomic failure: Code(s): R55 - Syncope and collapse Status: Acute (2) Orthostatic hypotension: Code(s): I95.1 - Orthostatic hypotension Status: Chronic (3) Paroxysmal atrial fibrillation with rapid ventricular response: Code(s): I48.0 - Paroxysmal atrial fibrillation Status: Chronic (4) Squamous cell cancer of tongue: Code(s): C02.9 - Malignant neoplasm of tongue, unspecified Status: Chronic Plan 77-year-old male with a history of A. fib, hypertension, squamous cell carcinoma of the tongue, prostate and throat cancer who was admitted to the hospital due to possible syncopal episode as well as shortness of breath. Episode of dark emesis 12/15 am with no further recurrencerule out underlying GI bleed. No further vomiting since the episode. Change IV Protonix to p.o., aspirin still on hold, hemoglobin has remained stable. Blood pressure continues to be stable. Eliquis will be continued. Hemoccult stool is pending. patient tolerating regular diet now, continue to monitor patient clinically. Syncope Orthostatic hypotension Hypertension Physical deconditioning -Currently on diltiazem and lisinopril, blood pressure better controlled. -Continue to monitor closely PT recommends rehab. He needs placement but no accepting facility. He would rather go home but his hospital admitting clerk/daughter wants him to stay in the Hospital until he finishes all cancer related treatment. CM is following. Family now in discussion of possible transitioning to inpatient hospice facility to complete his radiation. Paroxysmal atrial fibrillation apixaban 5 mg p.o. twice daily, Continue Cardizem 240 mg p.o. daily History of squamous cell cancer of the tongue Patient is currently receiving radiation therapy. Family wants to continue through August 27 Depression Continue paroxetine 20 mg p.o. daily Leukocytosis yesterday after emesis likely due to stress reaction nara's WBC is within normal limits. Will repeat labs in the morning. DVT prophylaxis apixaban Discharge Planning: Patient's daughter does not want to take patient home because she wants him to stay in the hospital until radiation treatments are completed. Patient has been denied by multiple SNF. CM following and is in discussion with family on possibility transition to inpatient hospice to continue treatments. Progress Note: Quality VTE Deep Vein Thrombosis/Pulmonary Embolism Present on Admission: No
[2018-08-07] MEDS: Montelukast 10 MG Tablet PO SCH (17:25)
[2018-08-08] MEDS: Lactobacillus Acidophilus/L. Spores Tablet PO SCH ×3 (10:31→17:31)
[2018-08-08] MEDS: dilTIAZem CD 240 MG Capsule PO SCH (10:31)
[2018-08-08] MEDS: Metoclopramide 10 MG Tablet PO SCH ×4 (10:31→21:11)
[2018-08-08] MEDS: Nystatin/Diphenhydramine/Lidocaine Mouthwash (Adult) 120 ML Botttle SWISH-SWAL SCH ×4 (10:32→21:12)
--- NOTE | 2018-08-08 10:47 | P.PNIM ---
Subjective Interval history: in no acute distress. looks fairly comfortable. Physical Exam Vital signs: Last Vital Signs Temp 97.7 F 08/08/18 08:00 Pulse 89 08/08/18 08:00 Resp 19 08/08/18 08:00 BP 162/89 H 08/08/18 08:00 Pulse Ox 93 L 08/08/18 08:00 Intake & Output 08/06/18 08/07/18 08/08/18 08/09/18 06:59 06:59 06:59 06:59 Intake Total 3320 / 3320 791 / 791 120 / 120 Output Total 1850 / 1850 900 / 900 680 / 680 Balance 1470 / 1470 -109 / -109 -560 / -560 Weight 80.5 kg 80.5 kg Constitutional no acute distress Routine Respiratory Exam Present CTA bilaterally Routine Cardiovascular Exam Present RRR Routine Abdominal Exam Present soft Routine Extremities Exam Comments: no pedal edema. Routine Neurological Exam Present alert Results Labs CBC & Chem 7: 08/07/18 05:47 08/06/18 10:38 Labs: Microbiology 08/07/18 17:00 Stool Stool Occult Blood (LEONOR) - Final Hemoccult positive Procedures Procedures: RADIATION THERAPY Assessment and Plan (1) Syncope due to autonomic failure: Code(s): R55 - Syncope and collapse Status: Acute (2) Orthostatic hypotension: Code(s): I95.1 - Orthostatic hypotension Status: Chronic (3) Paroxysmal atrial fibrillation with rapid ventricular response: Code(s): I48.0 - Paroxysmal atrial fibrillation Status: Chronic (4) Squamous cell cancer of tongue: Code(s): C02.9 - Malignant neoplasm of tongue, unspecified Status: Chronic Plan Episode of dark emesis 1215 am with no further recurrencerule out underlying GI bleed. No further vomiting since the episode. Change IV Protonix to p.o., aspirin still on hold, hemoglobin has remained stable. Blood pressure continues to be stable. Eliquis will be continued. patient tolerating regular diet now, continue to monitor patient clinically. Syncope Orthostatic hypotension Hypertension Physical deconditioning -Currently on diltiazem and lisinopril, blood pressure better controlled. -Continue to monitor closely PT recommends rehab. He needs placement but no accepting facility. He would rather go home but his office rn/daughter wants him to stay in the Hospital until he finishes all cancer related treatment. CM is following. Family now in discussion of possible transitioning to inpatient hospice facility to complete his radiation. Paroxysmal atrial fibrillation apixaban 5 mg p.o. twice daily, Continue Cardizem 240 mg p.o. daily History of squamous cell cancer of the tongue Patient is currently receiving radiation therapy. Family wants to continue through August 27 Depression Continue paroxetine 20 mg p.o. daily Leukocytosis yesterday after emesis likely due to stress reaction nara's WBC is within normal limits. Will repeat labs in the morning. DVT prophylaxis apixaban Discharge Planning: Patient's daughter does not want to take patient home because she wants him to stay in the hospital until radiation treatments are completed. Patient has been denied by multiple SNF. CM following and is in discussion with family on possibility transition to inpatient hospice to continue treatments. Progress Note: Quality VTE Deep Vein Thrombosis/Pulmonary Embolism Present on Admission: No
--- NOTE | 2018-08-08 15:26 | P.PNPAL ---
Reason for Visit Reason for visit: a. To assist with evaluation and management of symptoms including: pain, depression b. To assist medical decision maker(s) with: better understanding of current medical conditions; weighing benefits/burdens of medical treatment options; making medical treatment decisions. Subjective Subjective/Interval History: Follow up visit for symptom management of pain and depression as well as clarification of medical treatment goal. Patient seen and assessed in room 1423. No family at bedside. Patient appears to be resting comfortabley with his eyes closed. Arouses when his name is called. He is oriented to self and place only, forgetful. He is responds to questions with 1-3 words answers. Able to follow simple 1 step commands. Showing no signs of acute distress. He reports generalized back pain but does not rate or describe the pain. Current orders for oxycodone 7.5mg PO q8 hours ATC. Clinical data from 08/07/2018: WBC: 6.5, hemoglobin 10.3, hematocrit 30.8, platelets 184, neutrophils 70.6% Patient has been discharged from the hospital twice to rehab in recent months, returning within a few days due to syncopal episodes. Hospice has been following the patient and reached out to the patient's grandson/HCS (Damien) to clarify medical treatment goals. Damien verbalized ongoing aggressive goals. He does not want the patient being transferred to a hospice care center because he would have him transferred back to the hospital should he experience any complications or decline. Given 2 failed discharge attempts previously, Damien wants his grandfather to remain in the hospital for the duration of his treatment. Amanda, case management, was notified as well as Dr. Degroot. Advance Directives Advance Directives Date on File: 04/30/18 Health Care Surrogate Name and Number: Damien Leo (samina) [phone] Objective Vital Signs: Vital Signs 08/07/18 16:00 08/07/18 20:00 08/08/18 00:00 Temperature 97.8 F 98 F 98.6 F Pulse Rate 68 66 64 Respiratory Rate 16 18 18 Blood Pressure 98/69 L 143/93 H 159/86 H Pulse Oximetry 94 L 95 95 08/08/18 04:00 08/08/18 08:00 08/08/18 12:00 Temperature 98.4 F 97.7 F 98.0 F Pulse Rate 61 89 66 Respiratory Rate 18 18 18 Blood Pressure 141/70 H 162/89 H 175/90 H Pulse Oximetry 96 93 L 96 08/08/18 13:14 Temperature Pulse Rate Respiratory Rate Blood Pressure 160/100 H Pulse Oximetry Intake & Output 08/07/18 08/08/18 08/08/18 18:59 06:59 18:59 Intake Total 120 / 120 Output Total 280 / 280 400 / 400 Balance -280 / -280 -280 / -280 Intake: Oral 120 / 120 Output: Urine 280 / 280 400 / 400 Other: Date of Last Bowel Movement 08/06/18 08/07/18 08/07/18 Physical Exam: CONSTITUTIONAL/GENERAL: This is an adequately nourished patient, in no apparent distress. TUBES/LINES/DRAINS: PIV SKIN: No jaundice, rashes, or lesions. Ecchymoses on upper extremities. No wounds seen anteriorly. Skin temperature appropriate. Not diaphoretic. HEAD: Atraumatic. Normocephalic. EYES: Pupils equal and round and reactive. Extraocular motions intact. No scleral icterus. No injection or drainage. Fundi not examined. ENT: [place]. Nose without bleeding or purulent drainage. Oral mucosa moist NECK: Trachea midline. Supple, nontender. No palpable thyroid enlargement or nodularity. CARDIOVASCULAR: Regular rate and rhythm without murmurs, gallops, or rubs. No JVD. Peripheral pulses symmetric. RESPIRATORY/CHEST: Symmetric, unlabored respirations. Clear to auscultation. Breath sounds equal bilaterally. No wheezes, rales, or rhonchi. GASTROINTESTINAL: Abdomen soft, non-tender, nondistended. No guarding. Bowel sounds present. GENITOURINARY: Without palpable bladder distension. MUSCULOSKELETAL: Extremities without clubbing, cyanosis, or edema. No mottling or clubbing. NEUROLOGICAL: Arouses to verbal stimuli. Oriented to self and place. Forgetful. PSYCHIATRIC: No anxiety or agitation noted. No apparent hallucinations or other psychotic thought process. Diagnostic Tests Laboratory: Laboratory Results - last 72 hr 08/06/18 08/06/18 08/07/18 07:20 10:38 05:47 WBC 5.8 6.5 RBC 2.89 L 3.24 L Hgb 9.3 L 10.3 L Hct 29.1 L 30.8 L MCV 100.6 H D 94.9 D MCH 32.3 31.9 MCHC 32.1 33.6 RDW 15.8 15.2 Plt Count 160 184 MPV 8.0 7.4 Neut % (Auto) 75.6 H 70.6 H Lymph % (Auto) 15.8 19.1 [place] % (Auto) 8.2 H 9.9 H Eos % (Auto) 0.1 0.1 Baso % (Auto) 0.3 0.3 Neut # (Auto) 4.4 4.6 Lymph # (Auto) 0.9 L 1.2 [place] # (Auto) 0.5 0.6 Eos # (Auto) 0.0 0.0 Baso # (Auto) 0.0 0.0 WBC Differential . . Differential Comment Auto diff final Auto diff final Sodium 140 Potassium 3.3 L D Chloride 102 Carbon Dioxide 33.5 H Anion Gap 5 BUN 12 Creatinine 0.77 Estimated GFR Greater than 89 Random Glucose 111 H Calcium 8.0 L Result Diagrams: 08/07/18 05:47 08/06/18 10:38 Microbiology: Microbiology 08/07/18 17:00 Stool Occult Blood (LEONOR) - Final Stool Hemoccult positive Imaging: Chest X-Ray 07/03/18 14:38 CONCLUSION: Negative examination. Cervical Spine MRI 07/15/18 00:00 CONCLUSION: 1. Degenerative spondylosis of the lower cervical spine most prominently at C5- 6 and C6-7 with moderate central canal narrowing at C5-6. 2. Mild right-sided neural foraminal narrowing at C4-5 and C6-7 without impingement. Head MRI 07/15/18 00:00 CONCLUSION: 1. No acute intracranial abnormality. No abnormalities seen on the diffusion- weighted images to suggest acute infarction. 2. Age-related atrophy and suspected small vessel ischemic change in the white matter. Head CT 07/15/18 08:49 CONCLUSION: 1. No acute areas of hemorrhage or mass effect are seen. 2. Atrophy. 3. Old lacunar infarct. Report was called by by Dr. Carlos to Dr. Serrano at 9:06 AM.] Assessment and Plan - Disease Oriented Problem List (1) Syncope due to autonomic failure (2) UTI (urinary tract infection) (3) Hypokalemia (4) Dehydration (5) Paroxysmal atrial fibrillation with rapid ventricular response (6) Squamous cell cancer of tongue Comment: = Currently undergoing radiation treatments. 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 He is a ; his of 57 years dies last year from breast cancer. He has 2 adult daughters and 4 grandchildren. Patient has been depressed since his ; denies suicidal ideation. He had a brother who committed suicide. Spiritual: [employer] Legal: Healthcare surrogate designation form was completed on 04/30/2018 designating grandson (Damien Garcia) as the primary healthcare surrogate decision-maker. Daughter (Jillian Francis) is designated as the alternate HCS. Multiple attempts have been made to reach both healthcare surrogate's without success. Message left for bharti Gillis. Ethical issues impacting care: No known ethical issues impacting care at this time. 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 He is having orthostatic hypotension , dysphagia, odynophagia, decreased PO intake with associated weight loss. Patient was undergoing receiving chemo with weekly cisplatin. Currently on radiation therapy which will be completed in August,. Prognosis guarded. Code Status: Full Code Plan: * FULL CODE * A healthcare surrogate designation form was completed on 04/30/2018 designating patient's grandson (Damien Leo) as the primary healthcare surrogate decision-maker. Daughter, Jillian Francis, is the alternate. * Psychiatry was reconsulted on 08/01/18 to determine capacity. Given ongoing confusion, patient remains incapacitated for medical decision-making. * Patient has been discharged from the hospital twice to rehab in recent months , returning within a few days due to syncopal episodes. Hospice has been following the patient and reached out to the patient's grandson/HCS (Damien) to clarify medical treatment goals. Damien verbalized ongoing aggressive goals. He does not want the patient being transferred to a hospice care center because he would have him transferred back to the hospital should he experience any complications or decline. Given 2 failed discharge attempts previously, Damien wants his grandfather to remain in the hospital for the duration of his treatment. Amanda, case management, was notified as well as Dr. Degroot. * Symptom management: Pain: Multifactoral. History of chronic back pain. Patient does not rate or describe pain. Patient was taking oxycodone to manage pain at home. Current orders for Oxycodone 7.5mg PO q8 hours ATC. Depression: Situational. Pt. lost his last year at this time. Psychiatry consulted for capacity; felt the patient did not have capacity for medical decision-making. Previously on fluoxetine 20mg daily-restarted 07/09/18. * Palliative care will continue to follow this patient throughout his hospitalization to establish trust, assist with symptom management and clarification of medical treatment goals.
[2018-08-08] MEDS: Montelukast 10 MG Tablet PO SCH (17:39)
--- NOTE | 2018-08-09 09:33 | P.PNIM ---
Subjective Interval history: in no acute distress. looks better today. no new complaints. daughter at the bedside. Physical Exam Vital signs: Last Vital Signs Temp 97.9 F 08/09/18 04:00 Pulse 58 L 08/09/18 04:00 Resp 17 08/09/18 04:00 BP 126/77 08/09/18 04:00 Pulse Ox 94 L 08/09/18 04:00 Intake & Output 08/07/18 08/08/18 08/09/18 08/10/18 06:59 06:59 06:59 06:59 Intake Total 791 / 791 120 / 120 360 / 360 Output Total 900 / 900 680 / 680 900 / 900 Balance -109 / -109 -560 / -560 -540 / -540 Weight 80.5 kg 79.1 kg Constitutional no acute distress Routine Respiratory Exam Present CTA bilaterally Routine Cardiovascular Exam Present RRR Routine Abdominal Exam Present soft Routine Extremities Exam Comments: no pedal edema. Routine Neurological Exam Present alert and oriented X3 Results Labs CBC & Chem 7: 08/07/18 05:47 08/06/18 10:38 Procedures Procedures: RADIATION THERAPY Assessment and Plan (1) Syncope due to autonomic failure: Code(s): R55 - Syncope and collapse Status: Acute (2) Orthostatic hypotension: Code(s): I95.1 - Orthostatic hypotension Status: Chronic (3) Paroxysmal atrial fibrillation with rapid ventricular response: Code(s): I48.0 - Paroxysmal atrial fibrillation Status: Chronic (4) Squamous cell cancer of tongue: Code(s): C02.9 - Malignant neoplasm of tongue, unspecified Status: Chronic Plan Episode of dark emesis 12/15 am with no further recurrencerule out underlying GI bleed. No further vomiting since the episode. Change IV Protonix to p.o., aspirin still on hold, hemoglobin has remained stable. Blood pressure continues to be stable. Eliquis will be continued. patient tolerating regular diet now, continue to monitor patient clinically. Syncope Orthostatic hypotension Hypertension Physical deconditioning -Currently on diltiazem and lisinopril, blood pressure better controlled. -Continue to monitor closely PT recommends rehab. He needs placement but no accepting facility. 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 CM is following. Family now in discussion of possible transitioning to inpatient hospice facility to complete his radiation. Paroxysmal atrial fibrillation apixaban 5 mg p.o. twice daily, Continue Cardizem 240 mg p.o. daily History of squamous cell cancer of the tongue Patient is currently receiving radiation therapy. Family wants to continue through August 27 Depression Continue paroxetine 20 mg p.o. daily Leukocytosis yesterday after emesis likely due to stress reaction nara's WBC is within normal limits. Will repeat labs in the morning. DVT prophylaxis apixaban Discharge Planning: Patient's daughter does not want to take patient home because she wants him to stay in the hospital until radiation treatments are completed. Patient has been denied by multiple SNF. CM following and is in discussion with family on possibility transition to inpatient hospice to continue treatments. Progress Note: Quality VTE Deep Vein Thrombosis/Pulmonary Embolism Present on Admission: No
[2018-08-09] MEDS: Lactobacillus Acidophilus/L. Spores Tablet PO SCH ×3 (09:35→17:26)
[2018-08-09] MEDS: dilTIAZem CD 240 MG Capsule PO SCH (09:35)
[2018-08-09] MEDS: Metoclopramide 10 MG Tablet PO SCH ×4 (09:35→21:25)
[2018-08-09] MEDS: Nystatin/Diphenhydramine/Lidocaine Mouthwash (Adult) 120 ML Botttle SWISH-SWAL SCH ×4 (09:36→21:28)
[2018-08-09] MEDS: Montelukast 10 MG Tablet PO SCH (17:30)
[2018-08-10] MEDS: dilTIAZem CD 240 MG Capsule PO SCH (08:16)
[2018-08-10] MEDS: Lactobacillus Acidophilus/L. Spores Tablet PO SCH ×3 (08:16→18:10)
[2018-08-10] MEDS: Metoclopramide 10 MG Tablet PO SCH ×4 (08:16→22:15)
[2018-08-10] MEDS: Nystatin/Diphenhydramine/Lidocaine Mouthwash (Adult) 120 ML Botttle SWISH-SWAL SCH ×4 (08:17→22:15)
--- NOTE | 2018-08-10 10:33 | P.PNIM ---
Subjective Interval history: in no acute distress. looks comfortable with no new complaints. Physical Exam Vital signs: Last Vital Signs Temp 98.1 F 08/10/18 08:00 Pulse 58 L 08/10/18 08:00 Resp 18 08/10/18 08:00 BP 111/67 08/10/18 08:00 Pulse Ox 94 L 08/10/18 08:00 Intake & Output 08/08/18 08/09/18 08/10/18 08/11/18 06:59 06:59 06:59 06:59 Intake Total 120 / 120 360 / 360 660 / 660 Output Total 680 / 680 900 / 900 300 / 300 Balance -560 / -560 -540 / -540 360 / 360 Weight 79.1 kg 79.6 kg Constitutional no acute distress Routine Respiratory Exam Present CTA bilaterally Routine Cardiovascular Exam Present RRR Routine Abdominal Exam Present soft Routine Extremities Exam Comments: no pedal edema. Routine Neurological Exam Present alert and oriented X3 Results Labs CBC & Chem 7: 08/07/18 05:47 08/06/18 10:38 Procedures Procedures: RADIATION THERAPY Assessment and Plan (1) Syncope due to autonomic failure: Code(s): R55 - Syncope and collapse Status: Acute (2) Orthostatic hypotension: Code(s): I95.1 - Orthostatic hypotension Status: Chronic (3) Paroxysmal atrial fibrillation with rapid ventricular response: Code(s): I48.0 - Paroxysmal atrial fibrillation Status: Chronic (4) Squamous cell cancer of tongue: Code(s): C02.9 - Malignant neoplasm of tongue, unspecified Status: Chronic Plan Episode of dark emesis 12/15 am with no further recurrencerule out underlying GI bleed. No further vomiting since the episode. Change IV Protonix to p.o., aspirin still on hold, hemoglobin has remained stable. Blood pressure continues to be stable. Eliquis will be continued. patient tolerating regular diet now, continue to monitor patient clinically. Syncope Orthostatic hypotension Hypertension Physical deconditioning -Currently on diltiazem and lisinopril, blood pressure better controlled. -Continue to monitor closely PT recommends rehab. He needs placement but no accepting facility. 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 CM is following. Family now in discussion of possible transitioning to inpatient hospice facility to complete his radiation. Paroxysmal atrial fibrillation apixaban 5 mg p.o. twice daily, Continue Cardizem 240 mg p.o. daily History of squamous cell cancer of the tongue Patient is currently receiving radiation therapy. Family wants to continue through August 27 Depression Continue paroxetine 20 mg p.o. daily Leukocytosis yesterday after emesis likely due to stress reaction nara's WBC is within normal limits. Will repeat labs in the morning. DVT prophylaxis apixaban Discharge Planning: Patient's daughter does not want to take patient home because she wants him to stay in the hospital until radiation treatments are completed. Patient has been denied by multiple SNF. CM following and is in discussion with family on possibility transition to inpatient hospice to continue treatments. Progress Note: Quality VTE Deep Vein Thrombosis/Pulmonary Embolism Present on Admission: No
--- NOTE | 2018-08-10 11:39 | P.DIET ---
Nutritional Evaluation Type of nutrition evaluation: initial Nutrition consult regarding: Diet Evaluation Nutrition screening: Poor PO Intake ([facility] poor PO intake ) Objective - Diagnosis UTI, hypokalemia, recurrent syncope - Objective Body Mass Index: 22.5 [place] body weight: 86 kg % IBW: 92 Body Weight Used for Calculations: Actual (79.6) Energy Needs - Lower Range (kCal/kg): 30 Energy Needs - Upper Range (kCal/kg): 35 Lower Limit kCal/kg (kCals): 2,388 Upper Limit kCal/kg (kCals): 2,786 Lower Limit Protein Factor (Grams per Kg): 1.5 Upper Limit Protein Factor (Grams per Kg): 2 Lower Protein Needs (Protein): 119 Upper Protein Needs (Protein): 159 Dietitian Reviewed in Medical Record: Current diet, Curent medications, Intake & Output, Labs, Medical history Diet Order: Regular Diet Oral Diet Intake Amount: Poor <50% Speech Therapy Recommendations: No Objective Comments: PMH; squamous cell carcinoma of the tongue, prostate ca, throat ca, kidney ca Labs; no current labs, random glucose 111 (08/06) Medications; reviewed Assessment Assessment: [facility] consult Poor PO intake. Pt is at nutritional risk 2/2 current ca dx and current radiation treatment. Pt was admitted to [facility] on 07/03 with 2 failed discharge attempts since. Pt admitted with recurring syncope. Per MD note, previous good PO intake and pt tolerating diet well but currently decreased intake accompanied with weight loss. Spoke with pt's daughter today who said she has been bringing in Ensure Enlive BID for her father and assisting him in drinking them. Daughter requested to try another supplement in addition to give him a variety in which I offered Mighty Shake BID each which provides 300kcal and 9g protein and they were both agreeable. Encouraged daughter to continue to assist with supplement intake as PO intake is variable and pt's needs are increased 2/2 cancer diagnosis and current radiation treatment. Labs and medications reviewed, will continue to monitor clinical course. Recommendations: 1. Continue with Ensure Enlive brought from home 2. Add mighty shake BID for variety 3. Continue to assist with supplements as energy needs are increased
[2018-08-10] MEDS: Montelukast 10 MG Tablet PO SCH (18:10)
[2018-08-11] MEDS: Lactobacillus Acidophilus/L. Spores Tablet PO SCH ×3 (09:25→17:48)
[2018-08-11] MEDS: Nystatin/Diphenhydramine/Lidocaine Mouthwash (Adult) 120 ML Botttle SWISH-SWAL SCH ×3 (09:25→17:48)
[2018-08-11] MEDS: dilTIAZem CD 240 MG Capsule PO SCH (09:25)
[2018-08-11] MEDS: Metoclopramide 10 MG Tablet PO SCH ×4 (09:25→20:59)
--- NOTE | 2018-08-11 11:07 | P.PNIM ---
Subjective Interval history: in no acute distress. resting comfortably. no new complaints. d/w the RN and no acute issues over night. Physical Exam Vital signs: Last Vital Signs Temp 98 F 08/11/18 08:00 Pulse 64 08/11/18 08:00 Resp 18 08/11/18 08:00 BP 118/71 08/11/18 08:00 Pulse Ox 95 08/11/18 08:00 Intake & Output 08/09/18 08/10/18 08/11/18 08/12/18 06:59 06:59 06:59 06:59 Intake Total 360 / 360 660 / 660 720 / 720 Output Total 900 / 900 300 / 300 400 / 400 Balance -540 / -540 360 / 360 320 / 320 Weight 79.1 kg 79.6 kg Constitutional no acute distress Routine Respiratory Exam Present CTA bilaterally Routine Cardiovascular Exam Present RRR Routine Abdominal Exam Present soft Routine Extremities Exam Comments: no pedal edema. Routine Neurological Exam Present alert and oriented X3 Results Labs CBC & Chem 7: 08/07/18 05:47 08/06/18 10:38 Procedures Procedures: RADIATION THERAPY Assessment and Plan (1) Syncope due to autonomic failure: Code(s): R55 - Syncope and collapse Status: Acute (2) Orthostatic hypotension: Code(s): I95.1 - Orthostatic hypotension Status: Chronic (3) Paroxysmal atrial fibrillation with rapid ventricular response: Code(s): I48.0 - Paroxysmal atrial fibrillation Status: Chronic (4) Squamous cell cancer of tongue: Code(s): C02.9 - Malignant neoplasm of tongue, unspecified Status: Chronic Plan A/P Episode of dark emesis 1215 am with no further recurrencerule out underlying GI bleed. No further vomiting since the episode. on Protonix , aspirin still on hold, hemoglobin has remained stable. Blood pressure continues to be stable. Eliquis will be continued. patient tolerating regular diet now, continue to monitor patient clinically. Syncope Orthostatic hypotension Hypertension Physical deconditioning -Currently on diltiazem and lisinopril, blood pressure better controlled. -Continue to monitor closely PT recommends rehab. He needs placement but no accepting facility. 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 CM is following. Family now in discussion of possible transitioning to inpatient hospice facility to complete his radiation. Paroxysmal atrial fibrillation apixaban 5 mg p.o. twice daily, Continue Cardizem 240 mg p.o. daily History of squamous cell cancer of the tongue Patient is currently receiving radiation therapy. Family wants to continue through August 27 Depression Continue paroxetine 20 mg p.o. daily Leukocytosis yesterday after emesis likely due to stress reaction nara's WBC is within normal limits. Will repeat labs in the morning. DVT prophylaxis apixaban Discharge Planning: Patient's daughter does not want to take patient home because she wants him to stay in the hospital until radiation treatments are completed. Patient has been denied by multiple SNF. CM following and is in discussion with family on possibility transition to inpatient hospice to continue treatments. Progress Note: Quality VTE Deep Vein Thrombosis/Pulmonary Embolism Present on Admission: No
[2018-08-11] MEDS: Montelukast 10 MG Tablet PO SCH (17:53)
[2018-08-12] MEDS: Nystatin/Diphenhydramine/Lidocaine Mouthwash (Adult) 120 ML Botttle SWISH-SWAL SCH ×5 (04:48→20:56)
[2018-08-12] MEDS: dilTIAZem CD 240 MG Capsule PO SCH (09:14)
[2018-08-12] MEDS: Lactobacillus Acidophilus/L. Spores Tablet PO SCH ×3 (09:14→18:08)
[2018-08-12] MEDS: Metoclopramide 10 MG Tablet PO SCH ×4 (09:14→20:55)
--- NOTE | 2018-08-12 09:48 | P.PNIM ---
Subjective Interval history: in no acute distress. looks comfortable. d/w the RN and no acute issues over night. no new complaints. Physical Exam Vital signs: Last Vital Signs Temp 98 F 08/12/18 04:00 Pulse 71 08/12/18 04:00 Resp 18 08/12/18 04:00 BP 166/90 H 08/12/18 04:00 Pulse Ox 96 08/12/18 04:00 Intake & Output 08/10/18 08/11/18 08/12/18 08/13/18 06:59 06:59 06:59 06:59 Intake Total 660 / 660 720 / 720 960 / 960 Output Total 300 / 300 400 / 400 Balance 360 / 360 320 / 320 960 / 960 Weight 79.6 kg 79.6 kg Constitutional no acute distress Routine Respiratory Exam Present CTA bilaterally Routine Cardiovascular Exam Present RRR Routine Abdominal Exam Present soft Routine Extremities Exam Comments: no pedal edema. Routine Neurological Exam Present alert and oriented X3 Results Labs CBC & Chem 7: 08/07/18 05:47 08/06/18 10:38 Procedures Procedures: RADIATION THERAPY Assessment and Plan (1) Syncope due to autonomic failure: Code(s): R55 - Syncope and collapse Status: Acute (2) Orthostatic hypotension: Code(s): I95.1 - Orthostatic hypotension Status: Chronic (3) Paroxysmal atrial fibrillation with rapid ventricular response: Code(s): I48.0 - Paroxysmal atrial fibrillation Status: Chronic (4) Squamous cell cancer of tongue: Code(s): C02.9 - Malignant neoplasm of tongue, unspecified Status: Chronic Plan A/P Episode of dark emesis 1215 am with no further recurrencerule out underlying GI bleed. No further vomiting since the episode. on Protonix , aspirin still on hold, hemoglobin has remained stable. Blood pressure continues to be stable. Eliquis will be continued. patient tolerating regular diet now, continue to monitor patient clinically. Syncope Orthostatic hypotension Hypertension Physical deconditioning -Currently on diltiazem and lisinopril, continue to monitor BP. PT recommends rehab. He needs placement but no accepting facility. He would rather go home but his data management specialist/daughter wants him to stay in the Hospital until he finishes all cancer related treatment. CM is following. Family now in discussion of possible transitioning to inpatient hospice facility to complete his radiation. Paroxysmal atrial fibrillation apixaban 5 mg p.o. twice daily, Continue Cardizem 240 mg p.o. daily History of squamous cell cancer of the tongue Patient is currently receiving radiation therapy. Family wants to continue through August 27 Depression Continue paroxetine 20 mg p.o. daily DVT prophylaxis apixaban Discharge Planning: Patient's daughter does not want to take patient home because she wants him to stay in the hospital until radiation treatments are completed. Patient has been denied by multiple SNF. CM following and is in discussion with family on possibility transition to inpatient hospice to continue treatments. Progress Note: Quality VTE Deep Vein Thrombosis/Pulmonary Embolism Present on Admission: No
[2018-08-12] MEDS: Montelukast 10 MG Tablet PO SCH (18:08)
[2018-08-13] MEDS: dilTIAZem CD 240 MG Capsule PO SCH (08:34)
[2018-08-13] MEDS: Nystatin/Diphenhydramine/Lidocaine Mouthwash (Adult) 120 ML Botttle SWISH-SWAL SCH ×4 (08:34→20:23)
[2018-08-13] MEDS: Lactobacillus Acidophilus/L. Spores Tablet PO SCH ×3 (08:35→18:24)
[2018-08-13] MEDS: Metoclopramide 10 MG Tablet PO SCH ×4 (08:35→20:23)
--- NOTE | 2018-08-13 10:47 | P.PNIM ---
Subjective Interval history: in no acute distress. has sone left earache. no other complaints. d/w the daughter and RN at the bedside. Physical Exam Vital signs: Last Vital Signs Temp 97.7 F 08/13/18 04:00 Pulse 58 L 08/13/18 04:00 Resp 18 08/13/18 08:00 BP 164/94 H 08/13/18 04:00 Pulse Ox 96 08/13/18 04:00 Intake & Output 08/11/18 08/12/18 08/13/18 08/14/18 06:59 06:59 06:59 06:59 Intake Total 720 / 720 960 / 960 210 / 210 Output Total 400 / 400 300 / 300 Balance 320 / 320 960 / 960 -90 / -90 Weight 79.6 kg Constitutional no acute distress Routine Respiratory Exam Present CTA bilaterally Routine Cardiovascular Exam Present RRR Routine Abdominal Exam Present soft Routine Extremities Exam Comments: no pedal edema. 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 No further vomiting since the episode. on Protonix , aspirin still on hold, hemoglobin has remained stable. Blood pressure continues to be stable. Eliquis will be continued. patient tolerating regular diet now, continue to monitor patient clinically. Syncope Orthostatic hypotension Hypertension Physical deconditioning -Currently on diltiazem and lisinopril, continue to monitor BP. PT recommends rehab. He needs placement but no accepting facility. He would rather go home but his life claims examiner/daughter wants him to stay in the Hospital until he finishes all cancer related treatment. CM is following. Family now in discussion of possible transitioning to inpatient hospice facility to complete his radiation. Paroxysmal atrial fibrillation apixaban 5 mg p.o. twice daily, Continue Cardizem 240 mg p.o. daily History of squamous cell cancer of the tongue Patient is currently receiving radiation therapy. Family wants to continue through August 27 Depression Continue paroxetine 20 mg p.o. daily DVT prophylaxis apixaban Discharge Planning: Patient's daughter does not want to take patient home because she wants him to stay in the hospital until radiation treatments are completed. Patient has been denied by multiple SNF. CM following and is in discussion with family on possibility transition to inpatient hospice to continue treatments. Progress Note: Quality VTE Deep Vein Thrombosis/Pulmonary Embolism Present on Admission: No
[2018-08-13] MEDS: Montelukast 10 MG Tablet PO SCH (18:24)
[2018-08-14] MEDS: Metoclopramide 10 MG Tablet PO SCH ×4 (09:21→22:01)
[2018-08-14] MEDS: Lactobacillus Acidophilus/L. Spores Tablet PO SCH ×3 (09:21→17:30)
[2018-08-14] MEDS: Nystatin/Diphenhydramine/Lidocaine Mouthwash (Adult) 120 ML Botttle SWISH-SWAL SCH ×4 (09:21→22:01)
[2018-08-14] MEDS: dilTIAZem CD 240 MG Capsule PO SCH (09:21)
--- NOTE | 2018-08-14 11:24 | P.PNIM ---
Subjective Interval history: Patient seen and evaluated this morning at the bedside with daughter present. Patient without acute complaints at this time. Patient reports that he has had some difficulty with hearing on his right side and is better to hear on his left. Daughter reports that he has struggled with earwax problems in the past. No facial droop noted. Patient is tolerating p.o. diet without evidence of dysphagia. Patient denies symptoms of odynophagia. Patient denies headache, change in vision or other acute complaints at this time. Patient has been receiving radiation therapy treatments and will continue to receive them currently. Physical Exam Vital signs: Last Vital Signs Temp 97.1 F L 08/14/18 08:00 Pulse 52 L 08/14/18 08:00 Resp 14 08/14/18 08:00 BP 143/75 H 08/14/18 08:00 Pulse Ox 92 L 08/14/18 08:00 Intake & Output 08/12/18 08/13/18 08/14/18 08/15/18 06:59 06:59 06:59 06:59 Intake Total 960 / 960 210 / 210 700 / 700 Output Total 300 / 300 500 / 500 Balance 960 / 960 -90 / -90 200 / 200 Weight 79.6 kg 79.6 kg General: No acute distress, conversational HEENT: Cannot appreciate tongue lesion, poor dentition orally Cardiovascular: S1/S2 Respiratory: Clear to auscultation Gastrointestinal: Soft, nontender, nondistended, no guarding or rebound appreciated Extremity: No lower extremity edema noted Results Labs CBC & Chem 7: 08/07/18 05:47 08/06/18 10:38 Procedures Procedures: RADIATION THERAPY Assessment and Plan (1) Syncope due to autonomic failure: Code(s): R55 - Syncope and collapse Status: Acute (2) Orthostatic hypotension: Code(s): I95.1 - Orthostatic hypotension Status: Chronic (3) Paroxysmal atrial fibrillation with rapid ventricular response: Code(s): I48.0 - Paroxysmal atrial fibrillation Status: Chronic (4) Squamous cell cancer of tongue: Code(s): 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 Syncope Orthostatic hypotension Hypertension Physical deconditioning -Currently on diltiazem and lisinopril, continue to monitor BP. PT recommends rehab. Patient needs placement but no accepting facility. He would rather go home but his tv production assistant/daughter wants him to stay in the Hospital until he finishes all cancer related treatment. CM is following. Family now in discussion of possible transitioning to inpatient hospice facility to complete his radiation. Paroxysmal atrial fibrillation apixaban 5 mg p.o. twice daily, Continue Cardizem 240 mg p.o. daily History of squamous cell cancer of the tongue Patient is currently receiving radiation therapy. Family wants to continue through August 27 Depression Continue paroxetine 20 mg p.o. daily DVT prophylaxis apixaban CODE STATUS: Full code Discharge Planning: CM assisting with placement. Progress Note: Quality VTE Deep Vein Thrombosis/Pulmonary Embolism Present on Admission: No
[2018-08-14] MEDS: Montelukast 10 MG Tablet PO SCH (17:32)
[2018-08-15 06:57] LABS: Hematocrit 30.3 % (39.0-51.0); Hemoglobin 10.1 gm/dL (13.0-17.0); Mean Corpuscular HGB Conc 33.3 % (32.0-36.0); Mean Corpuscular Hemoglobin 30.9 pg (27.0-34.0); Mean Corpuscular Volume 92.7 fL (80.0-100.0); Mean Platelet Volume 6.9 fL (7.0-11.0); Platelet Count 200 th/mm3 (150-450); Red Blood Count 3.27 mil/mm3 (4.50-5.90)
[2018-08-15 07:24] LABS: Anion Gap 5 meq/L (5-15); Blood Urea Nitrogen 13 mg/dL (7-18); Carbon Dioxide 31.3 meq/L (21.0-32.0); Chloride 106 meq/L (98-107); Glomerular Filtration Rate Greater Than 89 mL/min (>89); Glucose,Random 113 mg/dL (74-106); Magnesium 1.9 mg/dL (1.5-2.5); Potassium 3.5 meq/L (3.5-5.1); Sodium 142 meq/L (136-145)
[2018-08-15] MEDS: Nystatin/Diphenhydramine/Lidocaine Mouthwash (Adult) 120 ML Botttle SWISH-SWAL SCH ×4 (09:18→21:00)
[2018-08-15] MEDS: Metoclopramide 10 MG Tablet PO SCH ×4 (09:18→21:00)
[2018-08-15] MEDS: dilTIAZem CD 240 MG Capsule PO SCH (09:18)
[2018-08-15] MEDS: Lactobacillus Acidophilus/L. Spores Tablet PO SCH ×3 (09:18→18:40)
--- NOTE | 2018-08-15 12:52 | P.PNIM ---
Subjective Interval history: Valuate this morning at bedside. No acute events noted overnight. Tolerating p.o. diet although he does not appear to be very hungry. Encouraged patient to try to eat as much fluid as possible. Physical Exam Vital signs: Last Vital Signs Temp 97.8 F 08/15/18 12:00 Pulse 56 L 08/15/18 12:00 Resp 18 08/15/18 12:00 BP 144/80 H 08/15/18 12:00 Pulse Ox 95 08/15/18 12:00 Intake & Output 08/13/18 08/14/18 08/15/18 08/16/18 06:59 06:59 06:59 06:59 Intake Total 210 / 210 700 / 700 600 / 600 Output Total 300 / 300 500 / 500 1100 / 1100 Balance -90 / -90 200 / 200 -500 / -500 Weight 79.6 kg 78.3 kg General: No acute distress, conversational HEENT: Unable to see any obvious mass. Left facial swelling. No facial droop. No slurred speech Cardiovascular: S1/S2. Respiratory: Clear to auscultation anteriorly and posteriorly Gastrointestinal: Soft, nontender, nondistended, no guarding or rebound appreciated Extremity: No lower extremity edema Results Labs CBC & Chem 7: 08/15/18 06:09 08/15/18 06:09 Procedures Procedures: RADIATION THERAPY Assessment and Plan (1) Syncope due to autonomic failure: Code(s): R55 - Syncope and collapse Status: Acute (2) Orthostatic hypotension: Code(s): I95.1 - Orthostatic hypotension Status: Chronic (3) Paroxysmal atrial fibrillation with rapid ventricular response: Code(s): I48.0 - Paroxysmal atrial fibrillation Status: Chronic (4) Squamous cell cancer of tongue: Code(s): 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 Syncope Orthostatic hypotension Hypertension Physical deconditioning -Currently on diltiazem and lisinopril, continue to monitor BP. PT recommends rehab. Patient needs placement but no accepting facility. He would rather go home but his bacteriology technician/daughter wants him to stay in the Hospital until he finishes all cancer related treatment. CM is following. Family now in discussion of possible transitioning to inpatient hospice facility to complete his radiation. We will continue to follow family discussions Paroxysmal atrial fibrillation apixaban 5 mg p.o. twice daily, Continue Cardizem 240 mg p.o. daily History of squamous cell cancer of the tongue Patient is currently receiving radiation therapy. Family wants to continue through August 27 Depression Continue paroxetine 20 mg p.o. daily DVT prophylaxis apixaban CODE STATUS: Full code Discharge Planning: CM assisting with placement. Progress Note: Quality VTE Deep Vein Thrombosis/Pulmonary Embolism Present on Admission: No
[2018-08-15] MEDS: Montelukast 10 MG Tablet PO SCH (18:40)
[2018-08-16] MEDS: Metoclopramide 10 MG Tablet PO SCH ×4 (08:33→21:54)
[2018-08-16] MEDS: Lactobacillus Acidophilus/L. Spores Tablet PO SCH ×3 (08:33→17:13)
[2018-08-16] MEDS: dilTIAZem CD 240 MG Capsule PO SCH (08:33)
[2018-08-16] MEDS: Nystatin/Diphenhydramine/Lidocaine Mouthwash (Adult) 120 ML Botttle SWISH-SWAL SCH ×4 (08:34→21:55)
[2018-08-16] MEDS ORDERED: Erythromycin 0.5% Opth Oint 3.5 GM Tube LEFT EYE ONE (15:06)
--- NOTE | 2018-08-16 15:08 | P.PNIM ---
Subjective Interval history: Patient seen and evaluated splinted bedside with daughter present. Patient is still currently receiving radiation therapy. Patient appears to have difficulty hearing and prefers to listen on his left side. Will give some medication for possible earwax. Mild/minimal erythema of left eye. No purulence noted by patient was recently cleaned up. Patient denied any changes in vision. No difficulty swallowing. Patient tolerating p.o. diet. Physical Exam Vital signs: Last Vital Signs Temp 97.8 F 08/16/18 12:00 Pulse 56 L 08/16/18 12:00 Resp 12 08/16/18 12:00 BP 146/76 H 08/16/18 12:00 Pulse Ox 98 08/16/18 12:00 Intake & Output 08/14/18 08/15/18 08/16/18 08/17/18 06:59 06:59 06:59 06:59 Intake Total 700 / 700 600 / 600 720 / 720 Output Total 500 / 500 1100 / 1100 700 / 700 Balance 200 / 200 -500 / -500 20 / 20 Weight 79.6 kg 78.3 kg 79.4 kg General: No acute distress, conversational HEENT: Unable to see any obvious mass. Left facial swelling. No facial droop. No slurred speech. Mild erythema of left eye Cardiovascular: S1/S2. Respiratory: Clear to auscultation anteriorly and posteriorly Gastrointestinal: Soft, nontender, nondistended, no guarding or rebound appreciated Extremity: No lower extremity edema Results Labs CBC & Chem 7: 08/15/18 06:09 08/15/18 06:09 Procedures Procedures: RADIATION THERAPY Assessment and Plan (1) Syncope due to autonomic failure: Code(s): R55 - Syncope and collapse Status: Acute (2) Orthostatic hypotension: Code(s): I95.1 - Orthostatic hypotension Status: Chronic (3) Paroxysmal atrial fibrillation with rapid ventricular response: Code(s): I48.0 - Paroxysmal atrial fibrillation Status: Chronic (4) Squamous cell cancer of tongue: Code(s): 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 Syncope Orthostatic hypotension Hypertension Physical deconditioning -Currently on diltiazem and lisinopril, continue to monitor BP. PT recommends rehab. Patient needs placement but no accepting facility. He would rather go home but his front desk administrator/daughter wants him to stay in the Hospital until he finishes all cancer related treatment. CM is following. Family now in discussion of possible transitioning to inpatient hospice facility to complete his radiation. We will continue to follow family discussions Paroxysmal atrial fibrillation apixaban 5 mg p.o. twice daily, Continue Cardizem 240 mg p.o. daily History of squamous cell cancer of the tongue Patient is currently receiving radiation therapy. Family wants to continue through August 27 Depression Continue paroxetine 20 mg p.o. daily Ophthalmology: Eye erythema Erythromycin ointment to eye DVT prophylaxis apixaban CODE STATUS: Full code Discharge Planning: CM assisting with placement. Progress Note: Quality VTE Deep Vein Thrombosis/Pulmonary Embolism Present on Admission: No
[2018-08-16] MEDS: Montelukast 10 MG Tablet PO SCH (17:52)
[2018-08-16] MEDS: Carbamide Peroxide 6.5% Otic Drops 15 ML Bottle LEFT EAR SCH ×2 (23:14→23:29)
[2018-08-17] MEDS: Nystatin/Diphenhydramine/Lidocaine Mouthwash (Adult) 120 ML Botttle SWISH-SWAL SCH ×4 (08:53→21:45)
[2018-08-17] MEDS: Lactobacillus Acidophilus/L. Spores Tablet PO SCH ×3 (08:53→17:21)
[2018-08-17] MEDS: dilTIAZem CD 240 MG Capsule PO SCH (08:53)
[2018-08-17] MEDS: Metoclopramide 10 MG Tablet PO SCH ×4 (08:53→21:46)
[2018-08-17] MEDS: Carbamide Peroxide 6.5% Otic Drops 15 ML Bottle LEFT EAR SCH ×2 (08:58→21:46)
--- NOTE | 2018-08-17 10:42 | P.PNIM ---
Subjective Interval history: bp elevated without symptoms of headache or chest pain - patient has been labile at moments no vision change no hearing change no swallowing change daughter present and would like to talk to today Physical Exam Vital signs: Last Vital Signs Temp 98.0 F 08/17/18 08:00 Pulse 58 L 08/17/18 08:00 Resp 12 08/17/18 08:00 BP 182/88 H 08/17/18 08:00 Pulse Ox 93 L 08/17/18 08:00 Intake & Output 08/15/18 08/16/18 08/17/18 08/18/18 06:59 06:59 06:59 06:59 Intake Total 600 / 600 720 / 720 820 / 820 Output Total 1100 / 1100 700 / 700 600 / 600 Balance -500 / -500 20 / 220 / 220 Weight 78.3 kg 79.4 kg 78.4 kg General: No acute distress, conversational HEENT: Unable to see any obvious mass. Left facial swelling. No facial droop. No slurred speech. LEFT eye erythema appears resolved. Cardiovascular: S1/S2. Respiratory: Clear to auscultation anteriorly and posteriorly Gastrointestinal: Soft, nontender, nondistended, no guarding or rebound appreciated Extremity: No lower extremity edema Neuro: Sensation intact UE/LE bilaterally. 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 Syncope Orthostatic hypotension Hypertension Physical deconditioning -Currently on diltiazem and lisinopril, continue to monitor BP. PT recommends rehab. Patient needs placement but no accepting facility. He would rather go home but his meteorological equipment repairer/daughter wants him to stay in the Hospital until he finishes all cancer related treatment. CM is following. Family now in discussion of possible transitioning to inpatient hospice facility to complete his radiation. We will continue to follow family discussions Paroxysmal atrial fibrillation apixaban 5 mg p.o. twice daily, Continue Cardizem 240 mg p.o. daily History of squamous cell cancer of the tongue Patient is currently receiving radiation therapy. Family wants to continue through August 27 Depression Continue paroxetine 20 mg p.o. daily Ophthalmology: Eye erythema Erythromycin ointment to eye ENT: Ear wax - discontinue debrox on 08/18 DVT prophylaxis apixaban CODE STATUS: Full code Discharge Planning: CM assisting with placement. Progress Note: Quality VTE Deep Vein Thrombosis/Pulmonary Embolism Present on Admission: No
--- NOTE | 2018-08-17 11:09 | P.DIET ---
Nutritional Evaluation Type of nutrition evaluation: follow-up Nutrition consult regarding: Diet Evaluation Nutrition screening: Poor PO Intake ([facility] poor PO intake ) Objective - Diagnosis UTI, hypokalemia, recurrent syncope - Objective [place] body weight: 86 kg % IBW: 92 Body Weight Used for Calculations: Actual (79.6) Energy Needs - Lower Range (kCal/kg): 30 Energy Needs - Upper Range (kCal/kg): 35 Lower Limit kCal/kg (kCals): 2,388 Upper Limit kCal/kg (kCals): 2,786 Lower Limit Protein Factor (Grams per Kg): 1.5 Upper Limit Protein Factor (Grams per Kg): 2 Lower Protein Needs (Protein): 119 Upper Protein Needs (Protein): 159 Dietitian Reviewed in Medical Record: Current diet, Curent medications, Intake & Output, Labs, Medical history Diet Order: Regular Diet Oral Diet Intake Amount: Poor <50% Speech Therapy Recommendations: No Objective Comments: PMH; squamous cell carcinoma of the tongue, prostate ca, throat ca, kidney ca Labs; no current labs, random glucose 113 (08/15) Medications; reviewed Assessment Assessment: FU Poor PO intake; Visited pt this morning after breakfast and was able to see that he ate ~50% of his meal and was actively drinking Enlive supplement. Per documentation meal intake is inconsistent but around 50% most meals. Daughter was present and reports that she is there every morning to assist in feeding him and he does well but he needs assistance when she is not there and she does not believe he is getting it. She reported that he drinks Enlive BID and mighty shake BID. Recommend to continue with current diet and supplements as ordered. Please provide assistance with meals and supplements. Will continue to monitor clinical course. Recommendations: 1. Continue with diet as ordered 2. Continue with supplements 3. Provide assistance with meals
[2018-08-17] MEDS: Montelukast 10 MG Tablet PO SCH (17:26)
[2018-08-18] MEDS: Metoclopramide 10 MG Tablet PO SCH ×4 (08:59→20:34)
[2018-08-18] MEDS: dilTIAZem CD 240 MG Capsule PO SCH (08:59)
[2018-08-18] MEDS: Nystatin/Diphenhydramine/Lidocaine Mouthwash (Adult) 120 ML Botttle SWISH-SWAL SCH ×4 (09:00→20:34)
[2018-08-18] MEDS: Carbamide Peroxide 6.5% Otic Drops 15 ML Bottle LEFT EAR SCH ×2 (09:00→20:34)
[2018-08-18] MEDS: Lactobacillus Acidophilus/L. Spores Tablet PO SCH ×3 (09:13→17:05)
--- NOTE | 2018-08-18 12:46 | P.PNIM ---
Subjective Interval history: Patient seen and evaluated this morning at bedside. Patient resting comfortably in bed with no acute complaints at this time. No changes in vision. Hearing appears to be slightly improved since using medication to remove earwax. Patient has been working with physical therapy and recommendations have been appreciated. No family present this morning at the bedside Physical Exam Vital signs: Last Vital Signs Temp 97.8 F 08/18/18 08:00 Pulse 59 L 08/18/18 08:00 Resp 18 08/18/18 08:00 BP 132/90 08/18/18 08:00 Pulse Ox 97 08/18/18 08:00 Intake & Output 08/16/18 08/17/18 08/18/18 08/19/18 06:59 06:59 06:59 06:59 Intake Total 720 / 720 820 / 820 520 / 520 Output Total 700 / 700 600 / 600 1300 / 1300 Balance 220 / 220 -780 / -780 Weight 79.4 kg 78.4 kg 79 kg General: No acute distress, conversational HEENT: Left facial swelling. No facial droop. No slurred speech. LEFT eye erythema appears resolved. Cardiovascular: S1/S2. Respiratory: Clear to auscultation anteriorly and posteriorly Gastrointestinal: Soft, nontender, nondistended, no guarding or rebound appreciated Extremity: No lower extremity edema Neuro: Sensation intact UE/LE bilaterally. 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 Syncope Orthostatic hypotension Hypertension Physical deconditioning -Currently on diltiazem and lisinopril, continue to monitor BP. PT recommends rehab. Patient needs placement but no accepting facility. He would rather go home but his sunday school missionary/daughter wants him to stay in the Hospital until he finishes all cancer related treatment. CM is following. Family now in discussion of possible transitioning to inpatient hospice facility to complete his radiation. We will continue to follow family discussions Paroxysmal atrial fibrillation apixaban 5 mg p.o. twice daily, Continue Cardizem 240 mg p.o. daily History of squamous cell cancer of the tongue Patient is currently receiving radiation therapy. Family wants to continue through August 27 Depression Continue paroxetine 20 mg p.o. daily Ophthalmology: Eye erythema Erythromycin ointment to eye ENT: Ear wax - discontinue debrox DVT prophylaxis apixaban CODE STATUS: Full code Discharge Planning: CM assisting with placement. Progress Note: Quality VTE Deep Vein Thrombosis/Pulmonary Embolism Present on Admission: No
[2018-08-18] MEDS: Montelukast 10 MG Tablet PO SCH (17:05)
[2018-08-19] MEDS: Nystatin/Diphenhydramine/Lidocaine Mouthwash (Adult) 120 ML Botttle SWISH-SWAL SCH ×4 (08:32→20:32)
[2018-08-19] MEDS: Metoclopramide 10 MG Tablet PO SCH ×4 (08:32→20:31)
[2018-08-19] MEDS: Lactobacillus Acidophilus/L. Spores Tablet PO SCH ×3 (08:32→17:46)
[2018-08-19] MEDS: dilTIAZem CD 240 MG Capsule PO SCH (08:32)
[2018-08-19] MEDS: Carbamide Peroxide 6.5% Otic Drops 15 ML Bottle LEFT EAR SCH ×2 (08:34→20:32)
--- NOTE | 2018-08-19 12:50 | P.PN ---
Subjective Interval history: Follow up for orthostatic hypotension, p-afib, Head/neck cancer undergoing radiation: Pt. seen and examined, KAIBAB, oriented x 2. C/O of not feeling well, "back hurts". Right eye not draining at much. No dizziness while laying in bed. Pt. very [place], daughter states that she pulled black "wax" from his left ear. Pt. denies any discomfort. Grandson and daughter at [facility] talking to Christin UNGER from hospice. They remain reluctant to consider SNF due to many issues with facilities. Full code is requested. Again, they emphasize that they don't feel pt. is ready for dc and daughter doesn't feel comfortable bringing home. She will challenge any discharge and is requesting that pt. is not referred to any SNFs unless she has given approval. Physical Exam Vital signs: Vital Signs 08/18/18 16:00 08/18/18 20:00 08/19/18 00:00 Temperature 97.9 F 98.0 F 98.1 F Pulse Rate 54 L 58 L 59 L Respiratory Rate 18 18 18 Blood Pressure 109/76 121/76 156/91 H Pulse Oximetry 98 98 96 08/19/18 04:00 08/19/18 08:00 Temperature 98.0 F 97.7 F Pulse Rate 70 69 Respiratory Rate 18 Blood Pressure 143/95 H 140/77 Pulse Oximetry 96 96 Intake & Output 08/18/18 08/19/18 08/19/18 18:59 06:59 18:59 Intake Total 600 / 600 Output Total 325 / 325 350 / 350 Balance 275 / 275 -350 / -350 Weight 79 kg Intake: Oral 600 / 600 Output: Urine 325 / 325 350 / 350 Other: Date of Last Bowel Movement 08/19/18 # Bowel Movements 0 Narrative: GENERAL: Well-nourished well-developed elderly male in no acute distress sitting up in the bed. KAIBAB CARDIOVASCULAR: Regular rate and rhythm HEENT: head normocephalic, right eye mildly erythematous, no drainage. Left ear with minimal amount of wax. RESPIRATORY: Breath sounds equal bilaterally. No accessory muscle use. GASTROINTESTINAL: Abdomen soft, non-tender, nondistended. Active bowel sounds MUSCULOSKELETAL: No cyanosis, or edema. NEURO: alert and oriented to self and place but not to time and situation, follows command, KAIBAB. No focal deficits. Results - Labs CBC & Chem 7: 08/15/18 06:09 08/15/18 06:09 Assessment and Plan - Assessment (1) Syncope due to autonomic failure Code(s): R55 - Syncope and collapse Status: Acute (2) Orthostatic hypotension Code(s): I95.1 - Orthostatic hypotension Status: Chronic (3) Paroxysmal atrial fibrillation with rapid ventricular response Code(s): I48.0 - Paroxysmal atrial fibrillation Status: Chronic (4) Squamous cell cancer of tongue Code(s): C02.9 - Malignant neoplasm of tongue, unspecified Status: Chronic - Plan Patient is a pleasant 77-year-old male with multiple medical problems including atrial fibrillation, depression, and history of squamous cell carcinoma currently receiving inpatient radiation therapy treatments. Admitted multiple times for same. Syncope Orthostatic hypotension Hypertension Physical deconditioning -Currently on diltiazem and lisinopril, continue to monitor BP. PT recommends rehab. Patient needs placement but no accepting facility. He would rather go home but his home companion/daughter wants him to stay in the Hospital until he finishes all cancer related treatment. CM is following. Family now in discussion of possible transitioning to inpatient hospice facility to complete his radiation. Family met with hospice, goals do not appear to be comfort oriented, they would like for him to be full code and if any events while under hospice care, they want him to be brought back to hospital. Paroxysmal atrial fibrillation apixaban 5 mg p.o. twice daily, Continue Cardizem 240 mg p.o. daily History of squamous cell cancer of the tongue Patient is currently receiving radiation therapy. Family wants to continue through August 27 Depression Continue paroxetine 20 mg p.o. daily Ophthalmology: Eye erythema Erythromycin ointment to eye ENT: Ear wax - discontinued debrox - improved Pt. clinically stable and ready for discharge to SNF, home with caregivers or hospice. Code Status: Full code Discussed Condition With: RN, pt's family -daughter and grandson, program proposals coordinator Jane Discharge Planning: Family's goal remain aggressive. They are refusing discharge to SNF, daughter afraid to care for him at home. Based on conversation with hospice today, their goals remain aggressive. They would like pt. to be full code and if he has any episodes of orthostasis, they want pt. to be brought to ED. They also want pt. to complete radiation and would consider hospice if they can agree to continue radiation while in hospice. D/W Christin program proposals coordinator, she will address with administration in regards to how to proceed with pt. She will continue to follow.
[2018-08-19] MEDS: Montelukast 10 MG Tablet PO SCH (17:46)
[2018-08-20] MEDS: Nystatin/Diphenhydramine/Lidocaine Mouthwash (Adult) 120 ML Botttle SWISH-SWAL SCH ×4 (09:35→22:01)
[2018-08-20] MEDS: Carbamide Peroxide 6.5% Otic Drops 15 ML Bottle LEFT EAR SCH ×2 (09:36→22:02)
[2018-08-20] MEDS: Metoclopramide 10 MG Tablet PO SCH ×4 (09:36→22:01)
[2018-08-20] MEDS: dilTIAZem CD 240 MG Capsule PO SCH (09:40)
[2018-08-20] MEDS: Lactobacillus Acidophilus/L. Spores Tablet PO SCH ×3 (09:42→17:26)
--- NOTE | 2018-08-20 11:08 | P.PN ---
Subjective Interval history: Patient seen and examined this morning, their vitals are stable and the patient is afebrile. No complaints or concerns. Responds appropriately to questions, just hard of hearing. Physical Exam Vital signs: Vital Signs 08/19/18 12:00 08/19/18 16:00 08/19/18 20:00 Temperature 98.0 F 97.6 F 98.0 F Pulse Rate 68 57 L 63 Respiratory Rate 18 18 14 Blood Pressure 138/74 129/77 137/87 Pulse Oximetry 95 94 L 97 08/20/18 00:00 08/20/18 04:00 08/20/18 08:00 Temperature 97.9 F 97.9 F 97.9 F Pulse Rate 58 L 62 61 Respiratory Rate 14 14 18 Blood Pressure 141/72 H 157/86 H 137/87 Pulse Oximetry 96 95 93 L Intake & Output 08/19/18 08/20/18 08/20/18 18:59 06:59 18:59 Intake Total 240 / 240 480 / 480 Output Total 250 / 250 350 / 350 Balance -10 / -10 130 / 130 Weight 79.6 kg Intake: Oral 240 / 240 480 / 480 Output: Urine 250 / 250 350 / 350 Other: Date of Last Bowel Movement 08/19/18 08/19/18 # Bowel Movements 0 # Incontinent Bowel Movements 1 Narrative: GENERAL: Well-appearing, no acute distress SKIN: Warm and dry. HEAD: Normocephalic. EYES: No scleral icterus. No injection or drainage. NECK: Supple, trachea midline. No JVD or lymphadenopathy. CARDIOVASCULAR: Regular rate and rhythm without murmurs, gallops, or rubs. RESPIRATORY: Breath sounds equal bilaterally. No accessory muscle use. GASTROINTESTINAL: Abdomen soft, non-tender, nondistended. MUSCULOSKELETAL: No cyanosis, or edema. Results - Labs CBC & Chem 7: 08/15/18 06:09 08/15/18 06:09 Assessment and Plan - Assessment (1) Syncope due to autonomic failure Code(s): R55 - Syncope and collapse Status: Acute (2) Orthostatic hypotension Code(s): I95.1 - Orthostatic hypotension Status: Chronic (3) Paroxysmal atrial fibrillation with rapid ventricular response Code(s): I48.0 - Paroxysmal atrial fibrillation Status: Chronic (4) Squamous cell cancer of tongue Code(s): C02.9 - Malignant neoplasm of tongue, unspecified Status: Chronic - Plan 77-year-old male with medical history significant for atrial fibrillation, orthostatic hypotension, and head and neck cancer currently under radiation. Patient with multiple hospital admissions for syncope. Syncope Hypertension with Orthostatic hypotension Physical Deconditioning -Cardiology as previously seen and evaluated the patient, patient noted to have labile blood pressures with autonomic instability and orthostatic hypotension. -PT recommends rehab. Placement is pending. Family does not feel comfortable taking the patient home. ?hospice Paroxysmal A-Fib -apixban 5 mg BID, continue cardizem 240 mg daily Squamous call carcinoma of tongue -Currently undergoing radiation Dark emesis 08/04, no further reoccurrence, GI bleed ruled out Depression -Continue paroxetine 20 mg daily For elevated blood pressure: PRN clonidine, hydralazine Discharge Planning: "HOSPICE NURSE NOTIFIED CM OF HER MTG. WITH PT'S. GRANDSON TODAY. PER HOSPICE NURSE, PT GRANDSON SIGNED PAPERWORK AND HAS PAPERWORK TO DELIVER TO HIS MOTHER, PT'S. DAUGHTER. PER HOSPICE NURSE, SHE AND MD ARE NOT COMFORTABLE WITH PT'S HOSPICE ADMISSION AT THIS TIME AND WILL SCHEDULE A MTG. WITH ADMINISTRATION ON 08/20/2018. CM WILL CONTINUE TO FOLLOW AND ASSESS PT FOR ANY NEEDS AND ANY MD ORDERS PRIOR TO HOSPITAL DISCHARGE."
[2018-08-20] MEDS: Montelukast 10 MG Tablet PO SCH (17:26)
[2018-08-21] MEDS: Nystatin/Diphenhydramine/Lidocaine Mouthwash (Adult) 120 ML Botttle SWISH-SWAL SCH ×4 (08:30→22:17)
[2018-08-21] MEDS: Lactobacillus Acidophilus/L. Spores Tablet PO SCH ×3 (08:31→17:07)
[2018-08-21] MEDS: Metoclopramide 10 MG Tablet PO SCH ×4 (08:31→21:50)
[2018-08-21] MEDS: dilTIAZem CD 240 MG Capsule PO SCH (08:31)
[2018-08-21] MEDS: Carbamide Peroxide 6.5% Otic Drops 15 ML Bottle LEFT EAR SCH ×2 (08:36→22:18)
--- NOTE | 2018-08-21 10:03 | P.PN ---
Subjective Interval history: Patient seen and examined this morning, their vitals are stable and the patient is afebrile. Denies CP or SOB. Stating his side itches from stool. Physical Exam Vital signs: Vital Signs 08/20/18 12:00 08/20/18 16:00 08/20/18 20:00 Temperature 98.4 F 98.3 F 98.5 F Pulse Rate 67 68 65 Respiratory Rate 20 20 16 Blood Pressure 107/68 95/69 L 115/81 Pulse Oximetry 93 L 94 L 95 08/21/18 00:00 08/21/18 04:00 08/21/18 08:00 Temperature 98.1 F 98 F 97.9 F Pulse Rate 74 62 66 Respiratory Rate 18 20 18 Blood Pressure 121/78 131/79 149/88 H Pulse Oximetry 96 93 L 93 L Intake & Output 08/20/18 08/21/18 08/21/18 18:59 06:59 18:59 Intake Total 680 / 680 Output Total 850 / 850 Balance -170 / -170 Weight 79.8 kg Intake: Oral 680 / 680 Output: Urine 850 / 850 Other: Date of Last Bowel Movement 08/19/18 08/21/18 08/21/18 # Bowel Movements 1 # Incontinent Bowel Movements 2 Narrative: GENERAL: Well-appearing, no acute distress SKIN: Warm and dry. HEAD: Normocephalic. EYES: No scleral icterus. No injection or drainage. NECK: Supple, trachea midline. No JVD or lymphadenopathy. CARDIOVASCULAR: Regular rate and rhythm without murmurs, gallops, or rubs. RESPIRATORY: Breath sounds equal bilaterally. No accessory muscle use. GASTROINTESTINAL: Abdomen soft, non-tender, nondistended. MUSCULOSKELETAL: No cyanosis, or edema. Results - Labs CBC & Chem 7: 08/15/18 06:09 08/15/18 06:09 Assessment and Plan - Assessment (1) Syncope due to autonomic failure Code(s): R55 - Syncope and collapse Status: Acute (2) Orthostatic hypotension Code(s): I95.1 - Orthostatic hypotension Status: Chronic (3) Paroxysmal atrial fibrillation with rapid ventricular response Code(s): I48.0 - Paroxysmal atrial fibrillation Status: Chronic (4) Squamous cell cancer of tongue Code(s): C02.9 - Malignant neoplasm of tongue, unspecified Status: Chronic - Plan 77-year-old male with medical history significant for atrial fibrillation, orthostatic hypotension, and head and neck cancer currently under radiation. Patient with multiple hospital admissions for syncope. Syncope Hypertension with Orthostatic hypotension Physical Deconditioning -Cardiology as previously seen and evaluated the patient, patient noted to have labile blood pressures with autonomic instability and orthostatic hypotension. -PT recommends rehab. Placement is pending. Family does not feel comfortable taking the patient home. ?hospice Paroxysmal A-Fib -apixban 5 mg BID, continue cardizem 240 mg daily Squamous call carcinoma of tongue -Currently undergoing radiation Dark emesis 08/04, no further reoccurrence, GI bleed ruled out Depression -Continue paroxetine 20 mg daily For elevated blood pressure: PRN clonidine, hydralazine Discharge Planning: "HOSPICE NURSE NOTIFIED CM OF HER MTG. WITH PT'S. GRANDSON TODAY. PER HOSPICE NURSE, PT GRANDSON SIGNED PAPERWORK AND HAS PAPERWORK TO DELIVER TO HIS MOTHER, PT'S. DAUGHTER. PER HOSPICE NURSE, SHE AND MD ARE NOT COMFORTABLE WITH PT'S HOSPICE ADMISSION AT THIS TIME AND WILL SCHEDULE A MTG. WITH ADMINISTRATION ON 08/20/2018. CM WILL CONTINUE TO FOLLOW AND ASSESS PT FOR ANY NEEDS AND ANY MD ORDERS PRIOR TO HOSPITAL DISCHARGE."
[2018-08-21] MEDS: Montelukast 10 MG Tablet PO SCH (17:06)
[2018-08-22] MEDS: dilTIAZem CD 240 MG Capsule PO SCH (10:29)
[2018-08-22] MEDS: Metoclopramide 10 MG Tablet PO SCH ×4 (10:29→21:19)
[2018-08-22] MEDS: Lactobacillus Acidophilus/L. Spores Tablet PO SCH ×3 (10:29→17:25)
[2018-08-22] MEDS: Nystatin/Diphenhydramine/Lidocaine Mouthwash (Adult) 120 ML Botttle SWISH-SWAL SCH ×4 (10:30→21:18)
[2018-08-22] MEDS: Carbamide Peroxide 6.5% Otic Drops 15 ML Bottle LEFT EAR SCH ×2 (10:31→21:18)
--- NOTE | 2018-08-22 11:58 | P.PN ---
Subjective Interval history: Follow up for syncope, orthostatic hypotension, deconditioning, afib. The patient is awoken from his sleep. He complains of some right hip pain, denies any recent fall or injury. Denies any other medical complaints. Vitals reviewed , BP borderline line while supine. Physical Exam Vital signs: Vital Signs 08/21/18 12:00 08/21/18 16:00 08/21/18 20:00 Temperature 98.1 F 98.1 F 98 F Pulse Rate 67 64 57 L Respiratory Rate 18 18 16 Blood Pressure 140/73 115/71 135/76 Pulse Oximetry 93 L 94 L 97 08/22/18 00:00 08/22/18 04:00 08/22/18 08:00 Temperature 97.2 F L 98 F 97.3 F L Pulse Rate 60 64 65 Respiratory Rate 18 18 18 Blood Pressure 187/92 H 160/64 H 167/104 H Pulse Oximetry 95 95 95 Intake & Output 08/21/18 08/22/18 08/22/18 18:59 06:59 18:59 Intake Total 360 / 360 1260 / 1260 Output Total 500 / 500 501 / 501 Balance -140 / -140 759 / 759 Intake: Oral 360 / 360 360 / 360 Other 900 / 900 Output: Urine 500 / 500 500 / 500 Stool / Other: Post Void Residual 200 # Voids 2 2 # Incontinent Voids 2 # Urine Diapers 5 Date of Last Bowel Movement 08/21/18 08/21/18 08/21/18 # Bowel Movements 3 3 # Incontinent Bowel Movements 2 Narrative: GENERAL: Well-nourished, well-developed elderly male patient in [facility]. SKIN: Warm and dry. No rash. HEENT: Normocephalic. Atraumatic. Pupils equal and round. Mucous membranes pink and moist. CARDIOVASCULAR: Regular rate and rhythm. No murmur appreciated. RESPIRATORY: No accessory muscle use. Clear to auscultation. Breath sounds equal bilaterally. GASTROINTESTINAL: Abdomen soft, non-tender, nondistended. Normoactive bowel sounds x4. MUSCULOSKELETAL: No obvious deformities. Extremities without clubbing, cyanosis , or edema. Right hip nontender to palpation. Active ROM of right hip, no reported worsening pain with active or passive ROM. NEUROLOGICAL: Awake and alert. No obvious cranial nerve deficits. Moving all extremities spontaneously. Normal speech. Results - Labs CBC & Chem 7: 08/15/18 06:09 08/15/18 06:09 Assessment and Plan - Assessment (1) Syncope due to autonomic failure Code(s): R55 - Syncope and collapse Status: Acute (2) Orthostatic hypotension Code(s): I95.1 - Orthostatic hypotension Status: Chronic (3) Paroxysmal atrial fibrillation with rapid ventricular response Code(s): I48.0 - Paroxysmal atrial fibrillation Status: Chronic (4) Squamous cell cancer of tongue Code(s): C02.9 - Malignant neoplasm of tongue, unspecified Status: Chronic - Plan 77-year-old male with medical history significant for atrial fibrillation, orthostatic hypotension, and head and neck cancer currently under radiation. Patient with multiple hospital admissions for syncope. Syncope Hypertension with Orthostatic hypotension Physical Deconditioning -Cardiology as previously seen and evaluated the patient, patient noted to have labile blood pressures with autonomic instability and orthostatic hypotension. -Control high BP with hydralazine prn -PT recommends rehab. Placement is pending. Family does not feel comfortable taking the patient home. Hospice has evaluated, appears he has not been accepted to hospice? Paroxysmal A-Fib -Continue Eliquis 5 mg BID, cardizem 240 mg daily Squamous call carcinoma of tongue -Currently undergoing radiation Depression -Continue paroxetine 20 mg daily DVT Prophylaxis: on Eliquis
[2018-08-22] MEDS: Montelukast 10 MG Tablet PO SCH (17:40)
[2018-08-23] MEDS: Lactobacillus Acidophilus/L. Spores Tablet PO SCH ×3 (09:56→17:13)
[2018-08-23] MEDS: Carbamide Peroxide 6.5% Otic Drops 15 ML Bottle LEFT EAR SCH ×2 (09:57→20:42)
[2018-08-23] MEDS: dilTIAZem CD 240 MG Capsule PO SCH (09:57)
[2018-08-23] MEDS: Metoclopramide 10 MG Tablet PO SCH ×4 (09:57→20:42)
[2018-08-23] MEDS: Nystatin/Diphenhydramine/Lidocaine Mouthwash (Adult) 120 ML Botttle SWISH-SWAL SCH ×4 (09:57→20:41)
--- NOTE | 2018-08-23 11:06 | P.PN ---
Subjective Interval history: Follow up for syncope, orthostatic hypotension, deconditioning, afib. The patient is sleeping upon my arrival, awakens to loud voice and light touch. Hard of hearing. Denies any medical complaints today. Denies any hip pain. Denies any fevers/chills, lightheadedness, chest pain, shortness of breath, or abdominal complaints. Physical Exam Vital signs: Vital Signs 08/22/18 16:00 08/22/18 20:00 08/23/18 00:00 Temperature 98.5 F 98.2 F 98.9 F Pulse Rate 69 61 72 Respiratory Rate 18 Blood Pressure 125/99 H 113/65 133/73 Pulse Oximetry 94 L 93 L 92 L 08/23/18 04:00 08/23/18 07:38 08/23/18 08:00 Temperature 98.9 F 97.6 F Pulse Rate 59 L 63 Respiratory Rate 18 Blood Pressure 119/90 147/94 H Pulse Oximetry 92 L 95 Intake & Output 08/22/18 08/23/18 08/23/18 18:59 06:59 18:59 Intake Total 480 / 480 1380 / 1380 Output Total 400 / 400 401 / 401 Balance 80 / 80 979 / 979 Weight 79.8 kg Intake: Oral 480 / 480 480 / 480 Other 900 / 900 Output: Urine 400 / 400 400 / 400 Stool Other: Post Void Residual 200 # Voids 2 # Incontinent Voids 2 # Urine Diapers 5 Date of Last Bowel Movement 08/21/18 08/21/18 # Bowel Movements 3 # Incontinent Bowel Movements 2 Narrative: GENERAL: Well-nourished, well-developed elderly male patient in [facility]. Hard of hearing. SKIN: Warm and dry. No rash. HEENT: Normocephalic. Atraumatic. Pupils equal and round. Mucous membranes pink and moist. CARDIOVASCULAR: Regular rate and rhythm. No murmur appreciated. RESPIRATORY: No accessory muscle use. Clear to auscultation. Breath sounds equal bilaterally. GASTROINTESTINAL: Abdomen soft, non-tender, nondistended. Normoactive bowel sounds x4. MUSCULOSKELETAL: No obvious deformities. Extremities without clubbing, cyanosis , or edema. NEUROLOGICAL: Awake and alert. No obvious cranial nerve deficits. Moving all extremities spontaneously. Normal speech. Results - Labs CBC & Chem 7: 08/15/18 06:09 08/15/18 06:09 Assessment and Plan - Assessment (1) Syncope due to autonomic failure Code(s): R55 - Syncope and collapse Status: Acute (2) Orthostatic hypotension Code(s): I95.1 - Orthostatic hypotension Status: Chronic (3) Paroxysmal atrial fibrillation with rapid ventricular response Code(s): I48.0 - Paroxysmal atrial fibrillation Status: Chronic (4) Squamous cell cancer of tongue Code(s): C02.9 - Malignant neoplasm of tongue, unspecified Status: Chronic - Plan 77-year-old male with medical history significant for atrial fibrillation, orthostatic hypotension, and head and neck cancer currently under radiation. Patient with multiple hospital admissions for syncope. Syncope Hypertension with Orthostatic hypotension Physical Deconditioning -Cardiology as previously seen and evaluated the patient, patient noted to have labile blood pressures with autonomic instability and orthostatic hypotension. -Control high BP with hydralazine prn -PT recommends rehab. Placement is pending. Family does not feel comfortable taking the patient home. Hospice has evaluated, appears he has not been accepted to hospice? -Psychiatry re-consulted, discussed with Dr. Duke on 08/23, patient does have capacity to make medical decisions Paroxysmal A-Fib -Continue Eliquis 5 mg BID, cardizem 240 mg daily Squamous call carcinoma of tongue -Currently undergoing radiation Depression -Continue paroxetine 20 mg daily DVT Prophylaxis: on Eliquis Discharge Planning: PT recommending rehab. Patient/family elected hospice however appears he was denied admission. Patient is observation status, difficulty with placement. Re- evaluated by psychiatry on 08/23, patient does have capacity to make his own medical decisions. Case management to continue to assist with discharge planning.
--- NOTE | 2018-08-23 12:40 | P.PNPSY ---
Subjective Remarks: The patient was seen today for psychiatric reevaluation. He was accompanied by her daughter Elis. Since communication with the patient is quite difficult due to his hearing limitations, the daughter helped me communicated with the patient, with patient agreement. The patient is calm, cooperative, he does not seem to be in acute distress. He reports feeling better today. Denies symptoms of depression, denies anxiety, denies mansi and psychosis. The patient today is fully oriented x3. No attention deficit, no fluctuation of consciousness. The patient is able to answer all my questions in a logical and coherent manner. He tells me that the reason he is here is because his back pain and his cancer. He is able to tell me that at this point medical thing is looking for a rehabilitation facility for him. He says that he is in agreement with the treatment, and medical recommendations. No agitation, no aggressive behavior, no paranoia, no looseness of association, no ideas of reference present. The patient has a good abstraction, good recall, able to recall 2 of 3 works in 3 minutes, able to tell me who was the president of [employer] in 1962 and 2000. Mental Status Examination Appearance: Appropriate Consciousness: Alert Orientation: x4 Motor Activity: Normal gait Speech: Incoherent Language: Adequate Fund of Knowledge: Adequate Attention and Concentration: Adequate Memory: Unremarkable Mood: Appropriate Affect: Appropriate Thought Process & Associations: Intact Thought Content: Appropriate Hallucination Type: None Delusion Type: None Suicidal Ideation: No Suicidal Plan: No Suicidal Intention: No Homicidal Ideation: No Homicidal Plan: No Homicidal Intention: No Insight: Fair Judgment: Impulsive Assessment and Plan - Assessment (1) Delirium due to another medical condition Code(s): F05 - Delirium due to known physiological condition Status: Resolved (2) Paroxysmal atrial fibrillation with rapid ventricular response Code(s): I48.0 - Paroxysmal atrial fibrillation Status: Chronic - Plan Plan: On psychiatric evaluation today patient seems to be cognitively better than the last time I saw him. Reports good mood, denies symptoms of anxiety, mansi and psychosis. Denies suicidal and homicidal ideation, denies and auditory hallucinations. The patient is fully oriented x3, without attention deficit, no fluctuation of consciousness. Able to tell me the reason for hospitalization , able to articulate and elaborate about acute medical problems, in agreement with medical treatment and recommendations. Patient is found to have decision- making capacity to participate in treatment and discharge plan at this moment. Continue Paxil 20 mg for depression. Justification for Continued Inpatient Stay: No admission indicated
[2018-08-23] MEDS: Montelukast 10 MG Tablet PO SCH (17:13)
[2018-08-24] MEDS: dilTIAZem CD 240 MG Capsule PO SCH (09:31)
[2018-08-24] MEDS: Metoclopramide 10 MG Tablet PO SCH ×4 (09:31→21:33)
[2018-08-24] MEDS: Nystatin/Diphenhydramine/Lidocaine Mouthwash (Adult) 120 ML Botttle SWISH-SWAL SCH ×4 (09:32→21:33)
[2018-08-24] MEDS: Lactobacillus Acidophilus/L. Spores Tablet PO SCH ×3 (09:32→17:31)
[2018-08-24] MEDS: Carbamide Peroxide 6.5% Otic Drops 15 ML Bottle LEFT EAR SCH ×2 (09:39→21:33)
--- NOTE | 2018-08-24 09:51 | P.PN ---
Subjective Interval history: Follow up for syncope, orthostatic hypotension, deconditioning, afib. The patient has no specific medical complaints today. Denies any lightheadedness, chest pain, shortness of breath. Tolerating oral intake. Still with generalized weakness. Physical Exam Vital signs: Vital Signs 08/23/18 12:00 08/23/18 13:20 08/23/18 19:46 Temperature 97.4 F L 98.5 F Pulse Rate 65 65 Respiratory Rate 18 18 16 Blood Pressure 137/88 132/73 Pulse Oximetry 97 94 L 08/24/18 04:00 08/24/18 08:00 08/24/18 09:23 Temperature 97.8 F 97.8 F Pulse Rate 58 L 57 L 60 Respiratory Rate 17 18 Blood Pressure 146/91 H 165/85 H Pulse Oximetry 94 L 96 Intake & Output 08/23/18 08/24/18 08/24/18 18:59 06:59 18:59 Intake Total 480 / 480 Output Total 450 / 450 Balance 30 / 30 Weight 82 kg Intake: Oral 480 / 480 Output: Urine Amount (Catheter) 450 / 450 Condom 450 / 450 Narrative: GENERAL: Well-nourished, well-developed elderly male patient in [facility]. Hard of hearing. SKIN: Warm and dry. No rash. HEENT: Normocephalic. Atraumatic. Pupils equal and round. Mucous membranes pink and moist. CARDIOVASCULAR: Regular rate and rhythm. No murmur appreciated. RESPIRATORY: No accessory muscle use. Clear to auscultation. Breath sounds equal bilaterally. GASTROINTESTINAL: Abdomen soft, non-tender, nondistended. Normoactive bowel sounds x4. MUSCULOSKELETAL: No obvious deformities. Extremities without clubbing, cyanosis , or edema. NEUROLOGICAL: Awake and alert. No obvious cranial nerve deficits. Moving all extremities spontaneously. Normal speech. - Urinary Catheter Management Condom Cath placed during this visit: no Results - Labs CBC & Chem 7: 08/15/18 06:09 08/15/18 06:09 Assessment and Plan - Assessment (1) Syncope due to autonomic failure Code(s): R55 - Syncope and collapse Status: Acute (2) Orthostatic hypotension Code(s): I95.1 - Orthostatic hypotension Status: Chronic (3) Paroxysmal atrial fibrillation with rapid ventricular response Code(s): I48.0 - Paroxysmal atrial fibrillation Status: Chronic (4) Squamous cell cancer of tongue Code(s): C02.9 - Malignant neoplasm of tongue, unspecified Status: Chronic - Plan 77-year-old male with medical history significant for atrial fibrillation, orthostatic hypotension, and head and neck cancer currently under radiation. Patient with multiple hospital admissions for syncope. Syncope Hypertension with Orthostatic hypotension Physical Deconditioning -Cardiology as previously seen and evaluated the patient, patient noted to have labile blood pressures with autonomic instability and orthostatic hypotension. -Control high BP with hydralazine prn -PT recommends rehab. Placement is pending. Family does not feel comfortable taking the patient home. Hospice has evaluated, appears he has not been accepted to hospice? -Psychiatry re-consulted, discussed with Dr. Duke on 08/23, patient does have capacity to make medical decisions Paroxysmal A-Fib -Continue Eliquis 5 mg BID, cardizem 240 mg daily Squamous call carcinoma of tongue -Currently undergoing radiation Depression -Continue paroxetine 20 mg daily DVT Prophylaxis: on Eliquis Discharge Planning: PT recommending rehab. Patient/family elected hospice however appears he was denied admission. Patient is observation status, difficulty with placement. Re- evaluated by psychiatry on 08/23, patient does have capacity to make his own medical decisions. Case management to continue to assist with discharge planning.
--- NOTE | 2018-08-24 11:36 | P.DIET ---
Nutritional Evaluation Type of nutrition evaluation: follow-up Nutrition consult regarding: Diet Evaluation Nutrition screening: Poor PO Intake ([facility] [place] ) Objective - Diagnosis UTI, hypokalemia, recurrent syncope - Objective [place] body weight: 86 kg % IBW: 92 Body Weight Used for Calculations: Actual (79.6) Energy Needs - Lower Range (kCal/kg): 30 Energy Needs - Upper Range (kCal/kg): 35 Lower Limit kCal/kg (kCals): 2,388 Upper Limit kCal/kg (kCals): 2,786 Lower Limit Protein Factor (Grams per Kg): 1.5 Upper Limit Protein Factor (Grams per Kg): 2 Lower Protein Needs (Protein): 119 Upper Protein Needs (Protein): 159 Dietitian Reviewed in Medical Record: Current diet, Curent medications, Intake & Output, Labs, Medical history Diet Order: Regular Diet Oral Diet Intake Amount: Poor <50% Speech Therapy Recommendations: No Objective Comments: PMH; squamous cell carcinoma of the tongue, prostate ca, throat ca, kidney ca Medications; reviewed Assessment Assessment: FU Poor PO intake; PO intake has improved adequately. Pt is consistently consuming ~50% or greater of each meal and continues to take supplements, especially with daughter's assistance. Visited him this morning after breakfast and was able to see that he consumed 75% of his meal. At this time I have no further concerns nutritionally. Please continue to encourage PO intake and assist with meals as this is important for his course of treatment. Consult RD if further complications arise. Recommendations: 1.PO intake adequate 2. Continue with current POC 3. Consult RD as needed
[2018-08-24] MEDS: Montelukast 10 MG Tablet PO SCH (18:13)
--- NOTE | 2018-08-25 08:11 | P.PN ---
Subjective Interval history: Follow up for syncope, deconditioning. The patient is awoken from his sleep. Denies any medical complaints. Hard of hearing. Vitals reviewed and stable. Physical Exam Vital signs: Vital Signs 08/24/18 09:23 08/24/18 12:00 08/24/18 16:00 Temperature 98.3 F 98.5 F Pulse Rate 60 63 74 Respiratory Rate 16 16 Blood Pressure 134/84 150/84 H Pulse Oximetry 97 96 08/24/18 20:00 08/25/18 00:00 08/25/18 04:00 Temperature 98.6 F 98.1 F 97.9 F Pulse Rate 65 67 57 L Respiratory Rate 17 18 18 Blood Pressure 151/96 H 162/89 H 124/73 Pulse Oximetry 96 96 96 08/25/18 07:15 Temperature Pulse Rate Respiratory Rate 18 Blood Pressure Pulse Oximetry Intake & Output 08/24/18 08/25/18 08/25/18 18:59 06:59 18:59 Intake Total 360 / 360 0 / 0 Output Total 100 / 100 575 / 575 Balance 260 / 260 -575 / -575 Weight 83.1 kg Intake: Oral 360 / 360 0 / 0 Output: Urine 100 / 100 575 / 575 Other: Date of Last Bowel Movement 08/24/18 # Bowel Movements 1 1 Narrative: GENERAL: Well-nourished, well-developed elderly male patient in [facility]. Hard of hearing. SKIN: Warm and dry. No rash. HEENT: Normocephalic. Atraumatic. Pupils equal and round. Mucous membranes pink and moist. CARDIOVASCULAR: Regular rate and rhythm. No murmur appreciated. RESPIRATORY: No accessory muscle use. Clear to auscultation. Breath sounds equal bilaterally. GASTROINTESTINAL: Abdomen soft, non-tender, nondistended. Normoactive bowel sounds x4. MUSCULOSKELETAL: No obvious deformities. Extremities without clubbing, cyanosis , or edema. NEUROLOGICAL: Awake and alert. No obvious cranial nerve deficits. Moving all extremities spontaneously. Normal speech. - Urinary Catheter Management Condom Cath placed during this visit: no Results - Labs CBC & Chem 7: 08/15/18 06:09 08/15/18 06:09 Assessment and Plan - Assessment (1) Syncope due to autonomic failure Code(s): R55 - Syncope and collapse Status: Acute (2) Orthostatic hypotension Code(s): I95.1 - Orthostatic hypotension Status: Chronic (3) Paroxysmal atrial fibrillation with rapid ventricular response Code(s): I48.0 - Paroxysmal atrial fibrillation Status: Chronic (4) Squamous cell cancer of tongue Code(s): C02.9 - Malignant neoplasm of tongue, unspecified Status: Chronic - Plan 77-year-old male with medical history significant for atrial fibrillation, orthostatic hypotension, and head and neck cancer currently under radiation. Patient with multiple hospital admissions for syncope. Syncope Hypertension with Orthostatic hypotension Physical Deconditioning -Cardiology as previously seen and evaluated the patient, patient noted to have labile blood pressures with autonomic instability and orthostatic hypotension. -Control high BP with hydralazine prn -PT recommends rehab. Placement is pending. Family does not feel comfortable taking the patient home. Hospice has evaluated, appears he has not been accepted to hospice -Psychiatry re-consulted, discussed with Dr. Duke on 08/23, patient does have capacity to make medical decisions Paroxysmal A-Fib -Continue Eliquis 5 mg BID, cardizem 240 mg daily Squamous call carcinoma of tongue -Currently undergoing radiation Depression -Continue paroxetine 20 mg daily DVT Prophylaxis: on Eliquis Discharge Planning: PT recommending rehab. Patient/family elected hospice however he was denied admission. Patient is observation status, difficulty with placement and funding. Re-evaluated by psychiatry on 08/23, patient does have capacity to make his own medical decisions. Case management to continue to assist with discharge planning.
[2018-08-25] MEDS: Lactobacillus Acidophilus/L. Spores Tablet PO SCH ×3 (09:44→18:33)
[2018-08-25] MEDS: Metoclopramide 10 MG Tablet PO SCH ×4 (09:44→20:36)
[2018-08-25] MEDS: Carbamide Peroxide 6.5% Otic Drops 15 ML Bottle LEFT EAR SCH ×2 (09:50→20:36)
[2018-08-25] MEDS: Nystatin/Diphenhydramine/Lidocaine Mouthwash (Adult) 120 ML Botttle SWISH-SWAL SCH ×4 (09:51→20:39)
[2018-08-25] MEDS: dilTIAZem CD 240 MG Capsule PO SCH (13:43)
[2018-08-25] MEDS: Montelukast 10 MG Tablet PO SCH (18:44)
--- NOTE | 2018-08-26 08:01 | P.PN ---
Subjective Interval history: Follow-up for syncope, deconditioning. The patient is initially difficult to arouse from his sleep, however then awakens, denies any specific medical complaints. Vital signs reviewed and stable. Physical Exam Vital signs: Vital Signs 08/25/18 12:00 08/25/18 16:00 08/25/18 20:00 Temperature 97.7 F 98.3 F 99.3 F Pulse Rate 61 61 72 Respiratory Rate 17 18 18 Blood Pressure 115/66 143/80 H 120/80 Pulse Oximetry 98 96 94 L 08/26/18 00:00 08/26/18 04:00 Temperature 98.2 F Pulse Rate 63 Respiratory Rate 16 17 Blood Pressure 137/76 Pulse Oximetry 94 L Intake & Output 08/25/18 08/26/18 08/26/18 18:59 06:59 18:59 Intake Total 600 / 600 1500 / 1500 Output Total 250 / 250 701 / 701 Balance 350 / 350 799 / 799 Intake: Oral 600 / 600 600 / 600 Other 900 / 900 Output: Urine 250 / 250 250 / 250 Stool 1 / 1 Urine Amount (Catheter) 450 / 450 Condom 450 / 450 Other: Post Void Residual 200 # Voids 1 1 # Incontinent Voids 2 # Urine Diapers 5 Date of Last Bowel Movement 08/24/18 # Bowel Movements 0 0 # Incontinent Bowel Movements 2 Narrative: GENERAL: Well-nourished, well-developed elderly male patient in [facility]. Hard of hearing. SKIN: Warm and dry. No rash. HEENT: Normocephalic. Atraumatic. Pupils equal and round. Mucous membranes pink and moist. CARDIOVASCULAR: Regular rate and rhythm. No murmur appreciated. RESPIRATORY: No accessory muscle use. Clear to auscultation. Breath sounds equal bilaterally. GASTROINTESTINAL: Abdomen soft, non-tender, nondistended. Normoactive bowel sounds x4. MUSCULOSKELETAL: No obvious deformities. Extremities without clubbing, cyanosis , or edema. NEUROLOGICAL: Awake and alert. No obvious cranial nerve deficits. Moving all extremities spontaneously. Normal speech. - Urinary Catheter Management Condom Cath placed during this visit: no Results - Labs CBC & Chem 7: 08/15/18 06:09 08/15/18 06:09 Assessment and Plan - Assessment (1) Syncope due to autonomic failure Code(s): R55 - Syncope and collapse Status: Acute (2) Orthostatic hypotension Code(s): I95.1 - Orthostatic hypotension Status: Chronic (3) Paroxysmal atrial fibrillation with rapid ventricular response Code(s): I48.0 - Paroxysmal atrial fibrillation Status: Chronic (4) Squamous cell cancer of tongue Code(s): C02.9 - Malignant neoplasm of tongue, unspecified Status: Chronic - Plan 77-year-old male with medical history significant for atrial fibrillation, orthostatic hypotension, and head and neck cancer currently under radiation. Patient with multiple hospital admissions for syncope. Syncope Hypertension with Orthostatic hypotension Physical Deconditioning -Cardiology as previously seen and evaluated the patient, patient noted to have labile blood pressures with autonomic instability and orthostatic hypotension. -Control high BP with hydralazine prn -PT recommends rehab. Placement is pending. Family does not feel comfortable taking the patient home. Hospice has evaluated and did not accept this patient to hospice. -Psychiatry re-consulted, discussed with Dr. Duke on 08/23, patient does have capacity to make medical decisions Paroxysmal A-Fib -Continue Eliquis 5 mg BID, cardizem 240 mg daily Squamous call carcinoma of tongue -Currently undergoing radiation Depression -Continue paroxetine 20 mg daily DVT Prophylaxis: on Eliquis Discharge Planning: PT recommending rehab. Patient/family elected hospice however he was denied admission. Patient is observation status, difficulty with placement and funding. Re-evaluated by psychiatry on 08/23, patient does have capacity to make his own medical decisions. Case management to continue to assist with discharge planning.
[2018-08-26] MEDS: Lactobacillus Acidophilus/L. Spores Tablet PO SCH ×3 (10:01→18:44)
[2018-08-26] MEDS: Metoclopramide 10 MG Tablet PO SCH ×4 (10:02→21:59)
[2018-08-26] MEDS: dilTIAZem CD 240 MG Capsule PO SCH (10:03)
[2018-08-26] MEDS: Nystatin/Diphenhydramine/Lidocaine Mouthwash (Adult) 120 ML Botttle SWISH-SWAL SCH ×4 (10:03→21:58)
[2018-08-26] MEDS: Carbamide Peroxide 6.5% Otic Drops 15 ML Bottle LEFT EAR SCH ×2 (10:04→22:00)
[2018-08-26] MEDS: Montelukast 10 MG Tablet PO SCH (18:45)
[2018-08-27] MEDS: Lactobacillus Acidophilus/L. Spores Tablet PO SCH ×3 (09:40→18:11)
[2018-08-27] MEDS: Metoclopramide 10 MG Tablet PO SCH ×4 (09:40→22:49)
[2018-08-27] MEDS: dilTIAZem CD 240 MG Capsule PO SCH (09:40)
[2018-08-27] MEDS: Nystatin/Diphenhydramine/Lidocaine Mouthwash (Adult) 120 ML Botttle SWISH-SWAL SCH ×4 (09:41→22:49)
[2018-08-27] MEDS: Carbamide Peroxide 6.5% Otic Drops 15 ML Bottle LEFT EAR SCH ×2 (09:49→22:47)
--- NOTE | 2018-08-27 11:02 | P.PN ---
Subjective Interval history: Follow-up visit for syncope, deconditioning, squamous cell carcinoma of the tongue. Patient is seen and examined sitting up in bed with daughter at bedside assisting with feedings. Daughter reports she has noticed some intermittent coughing even prior to eating as well as clear nasal discharge. Daughter reports patient received flu vaccine this year, history of allergies in the past. Patient denies any pain or discomfort, awake and following commands appears to be in no acute distress. Spoke with nurse who does not report any acute events. Physical Exam Vital signs: Vital Signs 08/26/18 12:00 08/26/18 16:00 08/26/18 20:00 Temperature 98.0 F 98.0 F 97.8 F Pulse Rate 78 64 65 Respiratory Rate 18 18 20 Blood Pressure 134/66 163/86 H 184/91 H Pulse Oximetry 95 95 98 08/27/18 00:00 08/27/18 04:00 08/27/18 08:00 Temperature 98.3 F 98 F 98.1 F Pulse Rate 67 65 63 Respiratory Rate 20 20 20 Blood Pressure 188/95 H 160/66 H 141/82 H Pulse Oximetry 95 95 96 Intake & Output 08/26/18 08/27/18 08/27/18 18:59 06:59 18:59 Intake Total 380 / 380 240 / 240 Output Total 400 / 400 1200 / 1200 Balance -20 / -20 -960 / -960 Intake: Oral 380 / 380 240 / 240 Output: Urine 400 / 400 1200 / 1200 Other: # Voids 5 Date of Last Bowel Movement 08/26/18 # Bowel Movements 2 Narrative: GENERAL: Well-nourished, well-developed elderly male patient in [facility]. Hard of hearing. SKIN: Warm and dry. HEENT: Normocephalic. Atraumatic. Pupils equal and round. Mucous membranes pink and moist. CARDIOVASCULAR: Regular rate and rhythm. No murmur appreciated. RESPIRATORY: No accessory muscle use. Clear to auscultation. Breath sounds equal bilaterally. GASTROINTESTINAL: Abdomen soft, non-tender, nondistended. Normoactive bowel sounds x4. MUSCULOSKELETAL: No obvious deformities. Extremities without clubbing, cyanosis , or edema. NEUROLOGICAL: Awake and alert. No obvious cranial nerve deficits. Moving all extremities spontaneously. Normal speech. - Urinary Catheter Management Condom Cath placed during this visit: no Results - Labs CBC & Chem 7: 08/15/18 06:09 08/15/18 06:09 Assessment and Plan - Assessment (1) Syncope due to autonomic failure Code(s): R55 - Syncope and collapse Status: Acute (2) Orthostatic hypotension Code(s): I95.1 - Orthostatic hypotension Status: Chronic (3) Paroxysmal atrial fibrillation with rapid ventricular response Code(s): I48.0 - Paroxysmal atrial fibrillation Status: Chronic (4) Squamous cell cancer of tongue Code(s): C02.9 - Malignant neoplasm of tongue, unspecified Status: Chronic - Plan 77-year-old male with medical history significant for atrial fibrillation, orthostatic hypotension, and head and neck cancer currently under radiation. Patient with multiple hospital admissions for syncope. Syncope Hypertension with Orthostatic hypotension Physical Deconditioning -Cardiology as previously seen and evaluated the patient, patient noted to have labile blood pressures with autonomic instability and orthostatic hypotension. -Control high BP with hydralazine prn -PT recommends rehab. Placement is pending. Family does not feel comfortable taking the patient home. Hospice has evaluated and did not accept this patient to hospice. -Psychiatry re-consulted, discussed with Dr. Duke on 08/23, patient does have capacity to make medical decisions Paroxysmal A-Fib -Continue Eliquis 5 mg BID, cardizem 240 mg daily Squamous call carcinoma of tongue -Currently undergoing radiation Depression -Continue paroxetine 20 mg daily Intermittent cough, nonproductive Rhinorrhea -Chest chest x-ray negative, speech therapy evaluated and recommends mechanical soft foods with nectar thickened fluids. -Continue Singulair, add Flonase twice daily -Lungs clear, continues to be on room air and afebrile. DVT Prophylaxis: on Eliquis Discussed Condition With: Patient, RN, daughter. Discharge Planning: PT recommending rehab. Patient/family elected hospice however he was denied admission. Patient is observation status, difficulty with placement and funding. Re-evaluated by psychiatry on 08/23, patient does have capacity to make his own medical decisions. Patient to be discharged tomorrow, foster care case manager arranging hospital bed, Emiliana lift, wheelchair and home health. Prescriptions for 1 months worth printed. Oxycodone 7.5 mg tablets for 1 week printed. Acute pain exception due to cancer. Last prescription for oxycodone was in June with only 2 days worth of medication.
--- NOTE | 2018-08-27 11:08 | XR ---
EXAM DATE: 08/27/2018 11:05 AM EST AGE/SEX: 77 years / Male INDICATIONS: Cough. CLINICAL DATA: This is the patient's initial encounter. Patient reports that signs and symptoms have been present for 1 day and indicates a pain score of Nonresponsive. MEDICAL/SURGICAL HISTORY: . Congestive heart failure. Carcinoma, tongue. AFIB. Throat carcinoma . None. COMPARISON: [facility] [place], CHEST 1V SINGLE AP, 07/03/2018. . FINDINGS: A single AP view of the chest demonstrates the lungs to be symmetrically aerated without evidence of mass, infiltrate or effusion. The cardiomediastinal contours are unremarkable. Osseous structures a re intact. CONCLUSION: No acute cardiopulmonary process Electronically signed by: Vincent Estrada MD Board Certified Radiologist 08/27/2018 11:06 AM EST
--- NOTE | 2018-08-27 13:46 | P.DCO ---
- Physical Therapy Order: Evaluate and treat, Improve ambulation, Strength and gait training - Occupational Therapy Order: Evaluate and treat, Improve ADL, Gross motor coordination, Fine motor coordination - Speech Therapy Order: To improve: Speech and communication skills, Cognitive skills, Swallowing - Home Health Nursing Order: Medical education, Nursing assessment with vital signs - Case Management Consult Case Management Consult-Home Health: Yes - Certification I have seen patient Shady Malhotra on 08/27/18. My clinical findings support the need for the requested home health care services because: Limited mobility due to disease progression I certify that my clinical findings support that this patient is homebound because: Unsteady gait/balance
[2018-08-27] MEDS: Montelukast 10 MG Tablet PO SCH (18:11)
[2018-08-28] MEDS: Nystatin/Diphenhydramine/Lidocaine Mouthwash (Adult) 120 ML Botttle SWISH-SWAL SCH ×2 (09:28→13:21)
--- NOTE | 2018-08-28 10:01 | P.DS ---
Date of admission: 07/03/18 17:16 Primary care physician: UNKNOWN Attending physician on discharge: Dwaine Scanlon Anticipated date of discharge: 07/26/18 Brief History from admission: History of Present Illness: Patient is a 77 year old male with a past medical history significant for atrial fibrillation on a/c with Eliquis, orthostatic hypotension/hypertension, squamous cell carcinoma of the tongue, prostate and throat cancer. Patient was recently admitted on 06/22/18 for syncope and orthostatic hypotension and discharged to a SNF on 07/02/18. He was evaluated by Cardiology during previous admissions and was noted to have labile hypertension with autonomic instability and orthostatic hypotension. He is currently being treated with Midodrine. Patient presents after experiencing a syncopal episode and shortness of breath during transfer with a Emiliana Lift at [facility]. Patient was transferred to ED for further evaluation and treatment. He is a poor historian at time of evaluation. He is able to mumble that he is cold and to cover him up. He does follow verbal commands, however, does not answer when asked additional questions. No family is present. He is hemodynamically stable. CT angio chest was completed during his recent admission 06/22/18 and showed no evidence of PE. Urinalysis was completed and results are pending. Patient was diagnosed with E-coli urinary tract infection during his recent admission and this is noted to be sensitive to Rocephin. Patient received 1st dose in ED. His serum potassium is noted be low and 2.9. This was repleted in ED with 40 meq PO and 10 meq IV. Chest x-ray shows no acute process. EKG with nonspecific ST and T wave changes. Head CT with no acute intracranial findings. Patient is being admitted under the care of the hospitalist service. DS: Diagnosis - Discharge Diagnosis (1) Syncope due to autonomic failure Status: Acute (2) Orthostatic hypotension Status: Chronic (3) Paroxysmal atrial fibrillation with rapid ventricular response Status: Chronic (4) Squamous cell cancer of tongue Status: Chronic DS: Medications - Discharge Medications Prescriptions: acidophilus-sporogenes [Acidophilus Ex Str (L. sporog)] 1 tab PO TID #90 tab apixaban [Eliquis] 5 mg PO BID #60 tab aspirin 81 mg PO DAILY #30 tab diltiazem HCl 240 mg PO DAILY #30 cap fluticasone 1 spray NASAL BID #1 unit lactulose 30 ml PO DAILY PRN #120 ml PRN Reason: Severe Consitipation metoclopramide HCl [Reglan] 10 mg PO QID #120 tab midodrine 2.5 mg PO TID #90 tab montelukast 10 mg PO QPM #30 tab ondansetron 4 mg PO Q6H PRN #15 tab PRN Reason: NAUSEA W/O VOMITING oxycodone 7.5 mg PO Q8H PRN #21 tab PRN Reason: Pain 2-10 pantoprazole 40 mg PO DAILY #30 tab potassium chloride 20 meq PO DAILY #30 tab DS: Summary Hospital Course: 77-year-old male with PMH of atrial fibrillation anticoagulated on Eliquis, orthostatic hypotension/hypertension, squamous cell carcinoma of the tongue, prostate and throat cancer who presented to the emergency department on 07/03 due to episode with shortness of breath during a Emiliana lift transfer at [facility]. Of note patient had been recently admitted on 06/22 with similar issues and evaluated by cardiology and noted to have liable hypertension with autonomic instability and orthostatic hypotension for which he was treated with Midodrine and discharged to [facility]. During this hospitalization patient was once again treated with Midrin for hypotension. Patient also received ongoing radiation treatments during his hospitalization. He was followed by palliative care was denied for admission. He was evaluated by psychiatry and was noted to have capacity for decision-making. Patient complaint of cough yesterday and chest x-ray was negative, he has been afebrile. Speech therapy evaluated patient and recommended mechanical soft foods with nectar consistency fluids. Hospital bed, Emiliana lift and wheelchair prescriptions all printed out for patient for rehabilitation caseworker to help obtain DME use. Prescriptions for 1 months worth printed for patient with the exception of oxycodone printed for 7 days worth. E force checked. He is seen and examined this morning resting in bed comfortably and appears to be in no acute distress, nurse does not report any events overnight or this morning. He is sleepy but awakens to touch and following commands in all extremities. Shakes his head no to shortness of breath, cough or pain. - Time Spent with Patient Total time spent providing and/or coordinating discharge services: Less than 30 minutes - Quality: VTE Deep Vein Thrombosis/Pulmonary Embolism Present on Admission: No Exam Vital signs: Vital Signs 08/27/18 12:00 08/27/18 16:00 08/27/18 20:00 Temperature 97.7 F 98.2 F 98.3 F Pulse Rate 70 62 66 Respiratory Rate 20 20 17 Blood Pressure 126/82 135/82 144/74 H Pulse Oximetry 95 97 97 08/28/18 00:00 08/28/18 04:00 08/28/18 08:00 Temperature 98.4 F 97.9 F 97.6 F Pulse Rate 64 57 L 62 Respiratory Rate 17 17 16 Blood Pressure 154/86 H 169/99 H 121/76 Pulse Oximetry 94 L 98 96 Intake & Output 08/27/18 08/28/18 08/28/18 18:59 06:59 18:59 Intake Total 0 / 0 0 / 0 Output Total 300 / 300 Balance 0 / 0 -300 / -300 Weight 80.9 kg Intake: Oral 0 / 0 0 / 0 Output: Urine 300 / 300 Other: # Voids 1 Date of Last Bowel Movement 08/26/18 08/26/18 # Bowel Movements 1 2 Narrative: GENERAL: Well-nourished, well-developed elderly male patient in [facility]. Hard of hearing. SKIN: Warm and dry. HEENT: Normocephalic. Atraumatic. Pupils equal and round. Mucous membranes pink and moist. CARDIOVASCULAR: Regular rate and rhythm. No murmur appreciated. RESPIRATORY: No accessory muscle use. Clear to auscultation. Breath sounds equal bilaterally. GASTROINTESTINAL: Abdomen soft, non-tender, nondistended. Normoactive bowel sounds x4. MUSCULOSKELETAL: No obvious deformities. Extremities without clubbing, cyanosis , or edema. NEUROLOGICAL: Sleepy but awakens to tactile stimuli, following commands in all extremities. No obvious cranial nerve deficits. Moving all extremities spontaneously. Results Procedures completed during hospitalization: None - Impressions ITS Impressions Cervical Spine MRI 07/15/18 00:00 CONCLUSION: 1. Degenerative spondylosis of the lower cervical spine most prominently at C5- 6 and C6-7 with moderate central canal narrowing at C5-6. 2. Mild right-sided neural foraminal narrowing at C4-5 and C6-7 without impingement. Head MRI 07/15/18 00:00 CONCLUSION: 1. No acute intracranial abnormality. No abnormalities seen on the diffusion- weighted images to suggest acute infarction. 2. Age-related atrophy and suspected small vessel ischemic change in the white matter. Head CT 07/15/18 08:49 CONCLUSION: 1. No acute areas of hemorrhage or mass effect are seen. 2. Atrophy. 3. Old lacunar infarct. Report was called by by Dr. Carlos to Dr. Serrano at 9:06 AM.] Chest X-Ray 08/27/18 00:00 CONCLUSION: No acute cardiopulmonary process Discharge Plan - Discharge Disposition Patient Disposition: /Home Health Service - Discharge Condition Condition: Stable - Discharge Order Discharge Orders: Discharge Order (Routine); Ordered 07/26/18 Ordered By: Eliud Reyes Hospitalist Clear for Discharge (Routine); Ordered 07/26/18 Ordered By: Eliud Reyes ED Use Only Admit Order (Routine); Ordered 07/03/18 Ordered By: Celso Wilhelm - Discharge Details Anticipated Discharge Date: 07/28/18 - Physicians Team Primary Care Provider: UNKNOWN, Attending Provider: Dwaine Scanlon Other Providers: [facility],Agency ; Candy Richards MD ; Prakash Duke MD ; [facility],Agency ; Leobardo Serrano MD ; Rehab,[facility] ; [facility] ; [facility]
[2018-08-28] MEDS: Lactobacillus Acidophilus/L. Spores Tablet PO SCH ×2 (13:17→13:19)
[2018-08-28] MEDS: Carbamide Peroxide 6.5% Otic Drops 15 ML Bottle LEFT EAR SCH (13:20)
[2018-08-28] MEDS: dilTIAZem CD 240 MG Capsule PO SCH (13:20)
[2018-08-28] MEDS: Metoclopramide 10 MG Tablet PO SCH (13:21)
== END 2018-08-28 14:59 | disposition home health service (06) ==
LOC: NEDA 14:11 → NEPE 14:11 → HCIN 20:50 → HCIS 07-08 21:39 → N04 07-17 18:17
PROVIDERS: ADMIT Hospitalist; ATTEND Hospitalist
CPT/HCPCS: 36415; 70450; 70551; 71010; 71045; 72141; 77300; 77336; 77386; 77387; 77427; 80048; 80053; 81001; 82272; 82550; 82948; 82962; 83036; 83735; 84100; 84439; 84443; 84484; 85025; 85027; 85384; 85610; 85730; 86850; 86900; 86901; 87086; 90471; 90658; 90686; 90765; 90768; 92526; 92610; 93005; 95819; 96361; 96365; 96366; 96368; 96372; 96375; 96376; 97110; 97162; 97167; 97168; 97530; 97535; 99285; C9113; G0008; G0195; G0378; G8987; G8988; G8996; G8997; G8998; J0696; J2405; J2550; J3475; J3480; J7030; J7042; Q2038